=== PATIENT | male | born 1980 | race Caucasian/White ===

== ENCOUNTER 2020-02-14 11:45 | Outpatient (REF) | payer MEDICAID, SELFPAY ==
[2020-02-14 20:55] LABS: Lithium 0.66 mmol/L (0.60-1.20)
== END 2020-02-14 12:05 ==
LOC: NCHCN 11:45
PROVIDERS: PCP Family Medicine; Visit Provider Family Medicine
DX: F31.78 Bipolar disorder, in full remission, most recent episode mixed (principal); Z51.81 Encounter for therapeutic drug level monitoring
CPT/HCPCS: 80178

== ENCOUNTER → 2021-11-05 02:12 | Outpatient (CLI) | payer MEDICAID, SELFPAY ==
--- NOTE | 2021-11-05 10:00 | DI.RAD_ITS ---
Exam(s) XR FEMUR LT EXAM: XR FEMUR LT CLINICAL HISTORY: PAGET'S DISEASE OF BONE, M88.9 TECHNIQUE: COMPARISON: No exams were available for comparison FINDINGS: Four views were obtained. There is apparent cortical thickening with trabecular thickening of the di stal femoral metaphysis and femoral condyles. There is reportedly a history of Paget's disease and t he findings are consistent with Paget's disease. No other significant bony findings. IMPRESSION: RADIATION DOSE DELIVERED: Total DLP
== END ==
PROVIDERS: PCP Family Medicine; Visit Provider Family Medicine
DX: M88.88 Osteitis deformans of other bones (principal)
CPT/HCPCS: 73552

== ENCOUNTER 2023-03-30 17:54 | Outpatient (REF) | payer MEDICAID, SELFPAY ==
[2023-03-30 21:11] LABS: HGB 14.5 g/dL (13.5-17.5); MCH 28.7 pg (27.0-33.0); MCHC 32.2 % (32.0-36.0); MCV 89 fL (80-95); MPV 10.9 fL (8.0-11.0); Platelet Count 297 10^3/uL (130-400); RBC 5.06 10^6/uL (4.36-5.78); RDW 13.9 % (11.8-14.1); RDW-SD 45.4 fL; WBC 7.18 10^3/uL (4.4-10.8)
[2023-03-30 21:15] LABS: Anion Gap 9.1 mmol/L (3-11); BUN 14 mg/dL (7-18); CO2 25.9 mmol/L (21.0-32.0); CREATININE 1.1 mg/dL (0.70-1.30); Calcium 10.2 mg/dL (8.5-10.1); Chloride 102 mmol/L (98-107); Estimated GFR 84.37 (mL/min/1.73m2); Glucose 128 mg/dL (74-106); Lithium 0.6 mmol/l (0.6-1.2); Potassium 4.2 mmol/L (3.5-5.1); Sodium 137 mmol/L (136-145)
== END 2023-03-30 17:55 | disposition home or self-care (01) ==
LOC: NCHCN 17:54
PROVIDERS: PCP Family Medicine; Visit Provider Family Medicine
DX: F31.78 Bipolar disorder, in full remission, most recent episode mixed (principal); Z79.899 Other long term (current) drug therapy; Z51.81 Encounter for therapeutic drug level monitoring
CPT/HCPCS: 80048; 85027; 80178

== ENCOUNTER 2023-11-28 17:43 | Emergency (ER) | payer MEDICAID, SELFPAY ==
[2023-11-28 17:48] VITALS: BP 148/89; PULSE 89; RESP 20; TEMP 37.1; O2SAT 94
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
--- NOTE | 2023-11-28 18:15 | DI.CT_ITS ---
Exam(s) CT NECK W EXAM: CT NECK W CLINICAL HISTORY: Right-sided neck swelling. TECHNIQUE: Imaging Protocol: Axial computed tomography images with coronal and sagittal reformatted images were created and reviewed CONTRAST MATERIAL: Intravenous: Omnipaque 350 Contrast volume:100 ml contrast COMPARISON: No exams were available for comparison FINDINGS: Exam is somewhat limited by streak artifact due to the patient's shoulders. Parotids: Normal. Submandibular glands: Normal. Thyroid gland: Normal. Lymph nodes: There are enlarged lymph nodes in the right lower neck, the largest measuring 2.3 cm, li colin reactive. Carotids arteries: No significant stenosis or dissection. Vertebral arteries: No significant stenosis or dissection. There is low attenuation in the right jugular vein which likely represents mixing of non opacified bl ood. Thrombosis not entirely excluded. Soft tissues: There is a fluid collection deep to the right sternocleidomastoid muscle which shows en hancing rim, consistent with small abscess. It measures 2.5 cm. There are 2 elongated foreign jaron s noted adjacent to the level of the abscess, 1 lateral and 1 inferior and medial. The floor the mouth is unremarkable. The adenoids are unremarkable. There is calcification within th e tonsils which could be secondary to previous inflammation. The epiglottis and vocal cords are within normal limits. Lungs: Images through both lung apices are unremarkable. Bones: Mild degenerative changes of the cervical spine. Visualized portions of the brain and orbits: Unremarkable. Sinuses and mastoids: Clear. IMPRESSION: Abscess in the right lower neck adjacent to the level of the thyroid measuring 2.5 cm. Two adjacent metallic foreign bodies. Reactive lymph nodes. Question of thrombosis in right jugular vein versus mixing of non-opacified blood. RADIATION DOSE DELIVERED: 479.83mGy.cm Total DLP DATA REPOSITORY: All CT scans at this facility are submitted to the National Radiology Data Registry (NRDR) Dose Index Registry (DIR) with the [employer] ([employer]). RADIATION OPTIMIZATION: All CT scans at this facility use at least one of these dose optimization te chniques: automated exposure control; mA and/or kV adjustment per patient size (includes targeted exa ms where dose is matched to clinical indication); or iterative reconstruction.
[2023-11-28 18:45] LABS: Abs Immature Grans 0.02 10^3/uL (0.0-0.06); Absolute Basophil Count 0.09 10^3/uL (0.0-0.2); Absolute Eosinophil Count 0.17 10^3/uL (0.0-0.7); Absolute Lymphocyte Count 2.01 10^3/uL (1.2-3.4); Absolute Neutrophil Count 6.16 10^3/uL (1.2-6.7); Eosinophils % 1.9 %; HCT 44.7 % (40.0-50.0); HGB 14.6 g/dL (13.5-17.5); Immature Grans % 0.2 %; Lymphocytes % 22.5 %; MCH 28.5 pg (27.0-33.0); MCHC 32.7 % (32.0-36.0); MCV 87 fL (80-95); MPV 9.3 fL (8.0-11.0); Monocytes % 5.6 %; Neutrophils % 68.8 %; Platelet Count 301 10^3/uL (130-400); RBC 5.13 10^6/uL (4.36-5.78); RDW 12.4 % (11.8-14.1); RDW-SD 39.8 fL; WBC 8.95 10^3/uL (4.4-10.8)
[2023-11-28] MEDS: Omnipaque 350 MG/ML 100 ML BTL IJ (18:49)
[2023-11-28 18:56] LABS: BUN 18 mg/dL (7-18); CREATININE 1.4 mg/dL (0.70-1.30); Calcium 9.9 mg/dL (8.5-10.1); Chloride 101 mmol/L (98-107); Estimated GFR 63.17 (mL/min/1.73m2); Glucose 96 mg/dL (74-106); Potassium 3.6 mmol/L (3.5-5.1); Sodium 138 mmol/L (136-145)
[2023-11-28] MEDS: Normal Saline Flush 10 ML SYR IVP (18:58)
[2023-11-28] MEDS: Normal Saline - Diluent 50 ML VIAL IJ (18:59)
[2023-11-28] MEDS: Dexamethasone 4 MG TAB 8 MG PO (19:16)
[2023-11-28] MEDS: diphenhydrAMINE 25 MG CAP PO (19:16)
[2023-11-28 19:17] VITALS: BP 140/68; PULSE 74; RESP 14; O2SAT 94
--- NOTE | 2023-11-28 20:02 | DI.VRAD_ITS ---
PROCEDURE INFORMATION: Exam: CT Neck With Contrast Exam date and time: 11/28/2023 6:54 PM Age: 43 years old Clinical indication: Other: R sided neck swelling; Prior surgery; Surgery date: 6+ months; Surgery type: Not specified; Additional info: PT had allergic reaction from contrast on return to er with hives TECHNIQUE: Imaging protocol: Computed tomography of the neck with contrast. Radiation optimization: All CT scans at this facility use at least one of these dose optimization techniques: automated exposure control; mA and/or kV adjustment per patient size (includes targeted exams where dose is matched to clinical indication); or iterative reconstruction. Contrast material: OMNIPAQUE 350; Contrast volume: 100 ml; Contrast route: INTRAVENOUS (IV); COMPARISON: No relevant prior studies available. FINDINGS: Pharynx: Unremarkable. No significant tonsillar enlargement. Larynx: Unremarkable. Epiglottis is normal. Prevertebral and retropharyngeal spaces: Unremarkable. Salivary glands: Normal. Glands are normal in size. Thyroid: Normal. No significant nodule.. Lymph nodes: There are asymmetrically enlarged lymph nodes in the lower right neck measuring up to about 2.3 cm. These are probably reactive. Trachea: Visualized trachea is unremarkable. Lungs: Unremarkable as visualized. Bones/joints: Unremarkable. No acute fracture. Vasculature: There is an area of decreased attenuation within the right jugular vein asymmetric with the opposite side and partial thrombosis cannot be excluded. Soft tissues: There is a 2.3 cm fluid collection deep to the right sternocleidomastoid muscle at the thyroid level anterior to the jugular vein. This exhibits a hyperenhancing rim and is suspicious for small abscess. IMPRESSION: Soft tissue abscess in the right lower neck deep to the sternocleidomastoid muscle. Possible partial thrombosis of the adjacent jugular vein. Dictated and Authenticated by: Mark Thurman MD. Ordering:LISA Chong MD
[2023-11-28] MEDS: AMPICILLIN/SULBACTAM 3 GM in Normal Saline 100 ML IVPB (20:24)
[2023-11-28 21:04] VITALS: BP 140/68; PULSE 74; RESP 14; O2SAT 94
--- NOTE | 2023-11-29 09:13 | NUR.NOTE ---
Addendum entered by Columba Mathis 11/29/23 10:58: Patient called [phone] stating that the prescription was pencillin based and that he is allergic. The note was given to Dr Lopez with phone number for provider to call patient back. Original Note: Patient called asking what pharmacy the prescription was sent to. Told that it was [facility] in [place]. Nursing Note:
== END 2023-11-28 21:04 | disposition home or self-care (01) ==
PROVIDERS: Emergency Provider Emergency Medicine; PCP Family Medicine
DX: L02.11 Cutaneous abscess of neck (principal); F19.10 Other psychoactive substance abuse, uncomplicated
CPT/HCPCS: 36415; 70491; 80048; 87040; 96365; 99285; 85025; 99283; J0295; J3490; J8540

== ENCOUNTER 2024-06-21 15:28 | Outpatient (CLI) | payer MEDICAID, SELFPAY ==
--- OUTSIDE RECORDS SUMMARY | 2024-06-21 15:30 | XMS_ITS | Encounter Summary ---
Author Organization [facility] Address [facility] [place] [address] Care Team Providers Care Camouflage Specialist Name Role Phone Laura Ho MD Primary Care Provider [phone] Encounter Details Date Type Department Care Team (Latest Contact Info) Description 02/05/2024 Travel Social History Tobacco Use Types Packs/Day Years Used Date Smoking Tobacco: Every Day Cigarettes Smokeless Tobacco: Never Alcohol Use Standard Drinks/Week Comments Yes 6 (1 standard drink = 0.6 oz pur e alcohol) IPV Inpatient Questions Answer Date Recorded Does Anyone Try to Keep You From Having Contact with Others or Doing Things Outside Your Home? no 02/05/2024 Feels Threatened by Someone no 01/09 Feels Unsafe at Home or Work/School no 02/05/2024 Physical Signs of Abuse Present no 02/05/2024 Sex and Gender Information Value Date Recorded Sex Assigned at Not on file Gender Identity Not on file Sexual Orientation Not on file documented as of this encounter Plan of Treatment Not on file documented as of this encounter Visit Diagnoses Not on filedocumented in this encounter Care Teams Camouflage Specialist Relationship Specialty Start Date End Date Laura Ho MD [address] [place] [address] PCP - General Family Medicine 06/28/16 documented as of this encounter
--- OUTSIDE RECORDS SUMMARY | 2024-06-21 15:30 | XMS_ITS | Encounter Summary ---
Author Organization [facility] Address [facility] [place] [address] Care Team Providers Care Laborer Adjustable Steel Joist Name Role Phone Laura Ho MD Primary Care Provider Encounter Details Date Type Department Care Team (Late st Contact Info) Description 11/28/2023 Notes [place] [id number] Carina Askew MD [facility] [place] [address] Social History Tobacco Use Types Packs/Day Years Used Date Smoking Tobacco: Every Day Cigarettes Smokeless Tobacco: Never Alcohol Use Standard Drinks/Week Comments Yes 6 (1 standard drink = 0.6 oz pur e alcohol) Sex and Gender Information Value Date Recorded Sex Assigned at Not on file Gender Identity Not on file Sexual Orientation Not on file documented as of this encounter Plan of Treatment Not on file documented as of this encounter Visit Diagnoses Not on filedocumented in this encounter Care Teams Laborer Adjustable Steel Joist Relationship Specialty Start Date End Date Laura Ho MD [address] [place] [address] PCP - General Family Medicine 06/28/16 documented as of this encounter
--- OUTSIDE RECORDS SUMMARY | 2024-06-21 15:30 | XMS_ITS | Encounter Summary ---
Author Organization [facility] Address [facility] [place] [address] Care Team Providers Care Plaster Machine Tender Name Role Phone Laura Ho MD Primary Care Provider [phone] Reason for Visit * Reason Comments Abscess Encounter Details Date Type Department Care Team (Late st Contact Info) Description 02/05/2024 11:00 PM EDT - 02/06/2024 12:16 PM [place] [address] Guille Hansen MD [facility] [place] [address] Johnson Rosales MD [facility] [place] [address] Neck abscess Discharge Disposition: Home Social History Tobacco Use Types Packs/Day Years Used Date Smoking Tobacco: Every Day Cigarettes Smokeless Tobacco: Never Alcohol Use Standard Drinks/Week Comments Yes 6 (1 standard drink = 0.6 oz pur e alcohol) DH IPV Inpatient Questions Answer Date Recorded Does [...] on file documented as of this encounter Last Filed Vital Signs Vital Sign Reading Time Taken Comments Blood Pressure 128/77 02/06/2024 11:45 AM EDT Pulse 98 02/05/2024 10:23 PM EDT Temperature 36.7 ??C (98.1 ??F) 02/06/2024 9:21 AM ED T Respiratory Rate 18 02/05/2024 10:23 PM EDT Oxygen Saturation 95% 02/06/2024 11:45 AM EDT Inhaled Oxygen Concentration - - Weight 99.8 kg (220 lb) 02/05/2024 10:23 PM EDT Height 185.4 cm (6' 1) 02/05/2024 10:23 PM EDT Body Mass Index 29.03 02/05/2024 10:23 PM EDT documented in this encounter Discharge Instructions * Discharge Instructions* Reji Lopez MD - 02/06/2024 11:56 AM EDT You were seen in the emergency department for a large neck abscess and associated skin infection called cellulitis. You were seen and evaluated by the ear nose and throat surgeons and they performed an incision and drainage at the bedside in the emergency department. Your abscess was very large andhad extensive surrounding infection. You received IV antibiotics in the emergency department. We offered you admission to the hospital for continued IV antibiotics and a period of observation overnight however you declined and would like to go home. Please scrap picker your antibiotics Augmentin and Bactrim and start taking them as prescribed this afternoon. Please take all of your antibiotics as prescribed. Ear nose and throat surgery will see you in clinic on for reassessment. In the meantime if you develop any worsening pain, swelling, vomiting, difficulty breathing, difficulty speaking, or any other concerns please return to the emergency department immediately. documented in this encounter Medications at Time of Discharge Medication Sig Dispensed Refills Start Date End Date prazosin (Minipress) 2 mg Capsule Take 4 mg by mouth nightly. acyclovir (ZOVIRAX) 200 mg Capsule as needed. 08/08/2020 cloNIDine (CATAPRES) 0.1 mg/24 hr Patch Weekly Change 1 patch on the skin once a week. Sundays alendronate (Fosamax) 70 mg Tablet Take 70 mg by mouth every 7 days. Take in AM with full glass of water, on an empty stomach. Do not lie down for 30 min. Saturdays. buspirone HCl (BUSPIRONE ORAL) Take 5 mg by mouth 2 times daily. Takes midday and nightly triamcinolone (KENALOG) 0.1 % OintmentIndications:Allison nd eczema,Prurigo nodularis Apply twice daily to the affected areas on the hands and lower legs for 21 days, then take one week off, and repeat as needed. Can occlude with cotton gloves after application to the hands at night 80 g 2 05/19/2020 QUEtiapine (SEROqueL) 100 mg Tablet Take 400 mg by mouth nightly. lithium 300 mg Capsule Take 1,050 mg by mouth nightly. buprenorphine-nalOXone (SUBOXONE) 8-[address] 16 mg under the tongue daily. Dexmethylphenidate 30 mg Capsule, Multiphasic Rel.50-50 Take 30 mg by mouth daily. lamoTRIgine (LAMICTAL) 25 mg Tablet Take 125 mg by mouth nightly. amoxicillin-clavulanat e (Augmentin) 875-125 mg tablet Take 1 tablet by mouth 2 times daily for 10 days. 20 tablet 02/06/2024 02/16/2024 sulfamethoxazole-trime thoprim DS (Bactrim DS) 800-160 mg tablet Take 2 tablets by mouth 2 times daily for 10 days. 40 tablet 02/06/2024 02/16/2024 documented as of this encounter ED Notes * Sergio Sanders RN - 02/06/2024 12:14 PM EDT Discharge instructions reviewed w/ Pt, Pt verbalized understanding to follow up with [place]/ PCP, Pt verbalized imporatnce of following up w/ Biju on for wound check, Discussed importance of refraining from smoking, & neReviewed new prescription of abx w/ Pt, PIV removed & catheter intact, Pt has belongings with them @ D/C. * Johnson Rosales MD - 02/06/2024 11:56 AM EDT EMERGENCY DEPARTMENT ATTENDING PHYSICIAN NOTE This patient was signed out to me at change of shift. Please see initial provider documentation forHPI, workup and treatment performed before transfer of care. In short Harvey Espinosa is a 43 y.o. male with a pmhx significant for PTSD, schizoaffective disorder, prior opioid dependence who presents to the Emergency Department with the chief complaint of right neck abscess. History of the same in 2020 requiring OR incision and drainage. Second occurrencein November 2023 treated with outpatient antibiotics and bedside ED incision and drainage by ENT.. Labora tory studies show slight leukocytosis at 11, lactic acid normal, remainder of laboratory studies reassuring. Patient was signed out to me pending CT scans and resulting consultation with ENT. CT scan shows large abscess at the lower right anterior lateral neck extending into and invading the adjacent sternocleidomastoid muscles significantly increased in size since prior study from November 2023. Extensive cellulitis of the surrounding muscle and subcutaneous soft tissue no evidence of associated thrombophlebitis. ENT was consulted, they performed an incision and drainage at the bedside and placed a drain as well. Patient received vancomycin and Zosyn in the emergency department. Given the location of the abscess, size and extent of the associated swelling, I strongly encouraged the patient to be admitted to the hospital to the medicine service for continued IV antibiotics, period of observation, prior to being discharged. Patient considered this option for well over an hour. His significant other at the bedside was present for these conversations. Patient is of sound mental mind. He voiced understanding of the risks and benefits of his decisions. He ultimately decided despite my persistent encouragement to be admitted, to be discharged home with oral antibiotics. Marcy follow him up in the outpatient clinic on . Patient was given very strict return precau tions to include signs and symptoms of worsening sepsis, neck infection, airway compromise, etc. Patient voiced understanding of these reasons to return. He was discharged with Augmentin as well as Bactrim for 10 days. Prescriptions were sent to [facility] and they will pick these up prior to [facility]. They live [place] [address] [place] in [place]. Patient ultimately was discharged at hisrequest with full decision-making capacity and voiced understanding of risks of his decision. Results: Labs Reviewed ABSCESS/WOUND ASPIRATE CULTURE - Abnormal; Notable for the following components: Result Value Gram Stain (*) Value: Many Neutrophils seen Many Gram Positive Cocci seen Moderate Gram Negative Rods seen Organism Gram Positive Cocci (*) Organism Gram Negative Rods (*) All other components within normal limits HEMOGRAM - Abnormal; Notable for the following components: WBC 11.1 (*) Hemoglobin 13.1 (*) Hematocrit 39.4 (*) Platelets 361 (*) All other components within normal limits DIFFERENTIAL, AUTOMATED - Abnormal; Notable for the following components: Neutr Abs (ANC) 7.83 (*) Monocyte Abs 1.1 (*) Teena Gran Abs 0.06 (*) All other components within normal limits BLOOD CULTURE BLOOD CULTURE ABSCESS/WOUND ASP CULTURE, AEROBIC AND ANAEROBIC ANAEROBIC CULTURE GOLD TUBE HOLD BLUE TUBE HOLD CBC (WITH DIFF) REQUEST FOR LACTATE WHOLE BLOOD DRAW HEPATIC FUNCTION PANEL BASIC METABOLIC PANEL LACTATE, WHOLE BLOOD, SEND TO LAB ([facility]) GREEN TUBE HOLD LAVENDER TUBE HOLD CT Neck Soft Tissue w Contrast (Generic) Final Result 1. Large abscess at the lower right anterolateral neck, extending into/and invading the adjacent sternocleidomastoid muscle, significantly increased in size since prior study from November 2023. Of note, collection abuts the anterior lateral skin surface without nathen disruption. Persistent linear metallic radiopaque foreign bodies inferior and lateral to the inferior margin of the collection, in unchanged position. 2. Extensive cellulitis of the surrounding muscle and subcutaneous soft tissues. No evidence of associated thrombophlebitis. 3. Reactive cervical lymphadenopathy. I have personally reviewed the image(s) and the resident's interpretation and agree with the findings, Kassandra Dobbins MD at 02/06/2024 6:52 AM Thank you for letting us participate in the care of this patient. If you are a health care provider and have any questions regarding this report, please contact the number below. For patients who have questions please contact the health wound care specialist that requested your imaging first. Electronically signed by: Kassandra Dobbins MD, [facility] ([phone]), at 02/06/2024 6:52 AM Diagnosis: 1. Neck abscess Condition: Stable Disposition: Discharge Johnson Rosales MD 02/06/24 1200 * Sergio Sanders RN - 02/06/2024 11:06 AM EDT Pt resting in hospital stretcher, equal and unlabored respirations, NAD noted at this time. Call armendariz within reach. * Sergio Sanders RN - 02/06/2024 10:39 AM EDT Pt given PO fluids, tolerating well. * Reji Lopez MD - 02/06/2024 9:04 AM EDT ED Patient Care Transition Patient: Harvey Espinosa Date: 02/06/2024 Time: 9:04 AM Pt has been signed out to me by Dr. Bill with a chief complaint of right neck abscess the last 2 days. Workup thus far notable for leukocytosis at 11.1, normal BMP, normal hepatic panel, lactate of 1. Patient was treated with Zosyn, ENT was paged and have yet to see the patient. ED Course as of 02/06/24 0904 TueFeb 06, 2024 0610 RN RADIATION >GC: 43yo PMH IV drug use, not actively using, prior neck abscess, here with right neck swelling. CT Neck - likely abscess -[facility] ENT I have followed up on results of CT neck, have also engaged ENT, they plan to drain at bedside. Drainage was performed uneventfully, vancomycin was added to the patient's antibiotic regimen, he was given Solu-Medrol. ENT was comfortable with the patient discharge and recommended Augmentin outpatient, we have prescribed both Augmentin and Bactrim. Patient was given in the ENT clinic visit for for reassessment and return precautions were reviewed. Patient was discharged in stable condition. CT Neck Soft Tissue w Contrast (Generic) Final Result 1. Large abscess at the lower right anterolateral neck, extending into/and invading the adjacent sternocleidomastoid muscle, significantly increased in size since prior study from November 2023. Of note, collection abuts the anterior lateral skin surface without nathen disruption. Persistent linear metallic radiopaque foreign bodies inferior and lateral to the inferior margin of the collection, in unchanged position. 2. Extensive cellulitis of the surrounding muscle and subcutaneous soft tissues. No evidence of associated thrombophlebitis. 3. Reactive cervical lymphadenopathy. I have personally reviewed the image(s) and the resident's interpretation and agree with the findings, Kassandra Dobbins MD at 02/06/2024 6:52 AM Thank you for letting us participate in the care of this patient. If you are a health care provider and have any questions regarding this report, please contact the number below. For patients who have questions please contact the health wound care specialist that requested your imaging first. Electronically signed by: Kassandra Dobbins MD, [facility] ([phone]), at 02/06/2024 6:52 AM The visit findings, diagnosis, and care plan were discussed with the patient. The diagnosis and care plans discussions were outlined in the discharge instructions. The patient expressed understanding of the details of the visit, the return precautions and that he should returnto the ER at any time for worsening symptoms, new symptoms, or other concerns. he agrees with the follow- up plan. Reji Lopez MD Resident 02/06/24 [id number] * Matteo Bill MD - 02/05/2024 11:54 PM EDT ED Resident Note HPI: Harvey Espinosa is a 43 y.o. male past medical history seen for bipolar disorder, PTSD, schizoaffective disorder, prior ADD, and prior opioid dependence who presents to the Emergency Department with concern for neck abscess. History is obtained with the patient. Patient states that over the past few days, he has rapidly developed a swelling on the right side of his anterior neck that is red. Hedenies any shortness of breath associated with this but does have some difficulty swallowing. He endorses fevers and chills at home, and some difficulty moving his neck around he says that he has some pain that spreads to the underside of his mouth and up towards his right ear. ROS as per HPI Vitals: ED Triage Vitals [02/05/243] BP: 131/76 Heart Rate: 98 Resp: 18 Temp: 37.2 ??C (99 ??F) Temp src: Temporal SpO2: 98 % O2 Device: RA O2 Flow Rate (L/min): n/a Physical Exam Constitutional: General: He is not in acute distress. HENT: Mouth/Throat: Comments: Patient with swelling at the right anterior neck that is erythematous and tender to palpation with spreading discomfort to the right ear and right inferior mouth Pulmonary: Effort: Pulmonary effort is normal. No respiratory distress. Neurological: Mental Status: He is alert. ED Course as of 02/06/24416Feb 06, [address] Neck Soft Tissue w Contrast (Generic) (Results Pending) Assessment and Plan: 43 y.o. male past medical history seen for bipolar disorder, PTSD, schizoaffective disorder, prior ADD, and prior opioid dependence who presents to the Emergency Department with concern for neck abscess. Patient has similar presentation in the past for neck abscess which had an I&D done at bedside by ENT in November. Today he is here with pain that is spreading up towards his submandibular space as well as his right ear. Will rule out Rahul's angina with CT scan, will give the patient a dose of antibiotics here as well in the meantime. Intervention pending CT scan. Patient had previous reaction to iodinated contrast dye had an outside location. He states that he had urticaria at the time, he did not have any shortness of breath. Will add this to his allergy list as well as start the [facility] protocol for his CT. Patient signed out to oncoming emergency room team pending CT scan of neck finalizing, anticipate evaluation by the ENT service. Matteo Bill MD Resident 02/06/24 0618 Associated attestation - Guille Hansen MD - 02/07/2024 1:03 AM EDT ED ATTENDING ATTESTATION NOTE The patient was seen in conjunction with the resident physician. I have independently performed thekey portions of the history and physical exam. I have reviewed the diagnostic studies including labs, imaging studies and EKGs. I have discussed the details of the case with the resident and agree with the assessment and plan as described in the resident note unless noted below or in my separate note. Brief Summary: 43 y.o. male with recurrent complicated neck abscess. Patient was overall hemodynamically stable throughout her time with him in the emergency department. Lab work notable for mild leukocytosis. Patient notes prior adverse reaction to IV contrast, given his history feel this test is most available test at this time and he was started on the [facility] protocol. Just prior to signout, preliminary CT with recurrent abscess adjacent to sternocleidal muscle and likely compressing the IJ. Carewas signed out to the oncoming team pending final reads and likely ENT consultation. * Arcelia Moore EMTPatricia - 02/05/2024 11:17 PM EDT IV attempted x1 in RAC. IV team paged. documented in this encounter Miscellaneous Notes * Consult Note - Arian Bowers MD - 02/06/2024 6:52 AM EDT OTOLARYNGOLOGY - HEAD & NECK SURGERY CONSULT NOTE Name: Harvey Espinosa Age/Sex: 43 y.o. male ENT Attending: Hermilo Thornton MD Hospital Day: 2 History of Present Illness We are seeing Harvey Espinosa today at the request of Dr. Johnson Rosales MD regarding RIGHT neckabscess. Harvey Espinosa is a 43 y.o. male with PMHx of bipolar disorder, PTSD, schizoaffective disorder, prior ADD, prior opioid dependence, and two prior episodes of right neck abscess. Briefly, he was previously seen by [facility] for a R neck abscess (Strep pneumo) requiring operative drainage in 2020 and again in November of 2023 which was drained at bedside. He states he completed most of his antibiotic course. Regarding this episode, the patient states over the past few days, he has rapidly developed a swelling on the right side of his anterior neck that is red. He denies any shortness of breath associatedwith this but does have some difficulty swallowing. He endorses chills at home, and some difficultymoving his neck around he says that he has some pain that spreads to the underside of his mouth andup towards his right ear. He denies any recent trauma to the neck, international travel or other associated symptoms Last injected into neck November of this year CT scan today demonstrates 6.0 x 4.7 x 5.9 cm abscess (likely similar location as most recent episode) Since arrival to ED VSS, afebrile, WBC 11.1. Not on any blood thinning medication. No heavy EtOH Review of Systems Pertinent positive findings discussed above. No other findings on review of constitutional, visual,cardiovascular, respiratory, gastrointestinal, genitourinary, musculoskeletal, dermatologic, neurological, psychiatric, endocrine, hematologic or immunologic systems. 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 Smokes F17.200 Bipolar disorder F31.9 History of hepatitis C Z86.19 PTSD (post-traumatic stress disorder) F43.10 Schizoaffective disorder F25.9 Chronic constipation K59.09 ADD (attention deficit disorder) F98.8 Opioid dependence on agonist therapy F11.20 Neck abscess L02.11 Past Medical History Past Medical History: Diagnosis Date Bipolar 1 disorder Cellulitis of hand 12/09/2015 Injury, superficial, hand with infection 12/10/2015 Past Surgical History Past Surgical History: Procedure Laterality Date PRO I&D DEEP ABSC/HEMATOMA NECK/CHEST Right 01/10/2021 I & D DEEP ABSCESS OR HEMATOMA, NECK (WRVU 3.98) performed by Nelson Gong MD at [facility] MAIN OR PRO LAP, CHOLECYSTECTOMY/GRAPH N/A 09/15/2020 LAPAROSCOPIC CHOLECYSTECTOMY WITH CHOLANGIOGRAM (WRVU 11.47) performed by Jorge Luis Rios MD [facility] MAIN OR Medications & Allergies No current facility-administered medications on file prior to encounter. Current Outpatient Medications on File Prior to Encounter Medication Sig Dispense Refill prazosin (Minipress) 2 mg Capsule Take 4 mg by mouth nightly. acyclovir (ZOVIRAX) 200 mg Capsule as needed. cloNIDine (CATAPRES) 0.1 mg/24 hr Patch Weekly Change 1 patch on the skin once a week. Sundays alendronate (Fosamax) 70 mg Tablet Take 70 mg by mouth every 7 days. Take in AM with full glass of water, on an empty stomach. Do not lie down for 30 min. Saturdays. buspirone HCl (BUSPIRONE ORAL) Take 5 mg by mouth 2 times daily. Takes midday and nightly triamcinolone (KENALOG) 0.1 % Ointment Apply twice daily to the affected areas on the hands and lower legs for 21 days, then take one week off, and repeat as needed. Can occlude with cotton gloves after application to the hands at night 80 g 2 QUEtiapine (SEROqueL) 100 mg Tablet Take 400 mg by mouth nightly. lithium 300 mg Capsule Take 1,050 mg by mouth nightly. buprenorphine-nalOXone (SUBOXONE) 8-[address] 16 mg under the tongue daily. Dexmethylphenidate 30 mg Capsule, Multiphasic Rel.50-50 Take 30 mg by mouth daily. lamoTRIgine (LAMICTAL) 25 mg Tablet Take 125 mg by mouth nightly. Iodinated contrast media and Pcn [penicillins] Social History [place] [id number] Social History Socioeconomic History Marital status: Spouse name: Not on file Number of children: Not on file Years of education: Not on file Highest education level: Not on file Occupational History Not on file Tobacco Use Smoking status: Every Day Types: Cigarettes Smokeless tobacco: Never Vaping Use Vaping status: Never Used Substance and Sexual Activity Alcohol use: Yes Alcohol/week: 6.0 standard drinks of alcohol Types: 6 Cans of beer per week Drug use: Not Currently Types: IV Sexual activity: Not on file Other Topics Concern Do You live alone? No Tobacco in Home Not Asked Social History Narrative Not on file Social Determinants of Health Financial Resource Strain: Not on file Food Insecurity: Not on file Transportation Needs: Not on file Physical Activity: Not on file Intimate Partner Violence: Not At Risk (02/05/2024) IPV Inpatient Questions Prevent Contact with Others: no Feels Threatened by Someone: no Feels Unsafe at Home: no Physical Signs of Abuse Present: no Housing Stability: Not on file Family History Family History Problem Relation Age of Onset Alcohol Use Disorder Mother Heart Disease Mother Vitals Last value 24hr Range Temperature: 37.2 ??C (99 ??F) Temp: [37.2 ??C (99 ??F)] Heart Rate: 98 Heart Rate: [98] Blood Pressure: 110/70 BP: (110-131)/(67-76) Respiratory Rate: 18 Resp: [18] SpO2: 97 % SpO2: [90 %-98 %] Physical Exam General: NAD, non-ill appearing Face: Symmetric without dysmorphic features Eyes: EOMI, conjunctiva healthy Ears: Auricles symmetric, no lesions Nose: Patent nares, grossly normal appearance Oral Cavity/Pharynx: Mucosa is pink, oropharynx symmetric Neck: Soft, trachea midline. 6x4 cm raised area of fluctuance along lower 1/3 of SCM which is TTP. No overlying erythema. No fistula tract noted however overlying skin thinning present. No other cervical LAD appreciated Chest: Unlabored breathing, regular rate Neuro: Alert & oriented, moving extremities x 4 Procedures Incision & Drainage of Abscess Verbal consent was obtained. Topical anesthesia was achieved with lidocaine with epinephrine. A 15 blade was used to make an incision in the location of the abscess with immediate return of purulent material which was sent for culture. A hemostat was used to open the pocket. Abscess pocket was irrigated with sterile saline. A 1/2 sera drain was placed in the pocket and sutured in place with 2-0prolene along inferior aspect. Patient tolerated the procedure well. Labs Recent Labs 02/06/24 0000 WBC 11.1* HGB 13.1* HCT 39.4* PLATELET 361* NA 136 K 3.6 CL 99 CO2 27 BUN 12 CREATININE 1.08 GLUCOSE [address] neck soft tissue 02/06/2024 Large rim-enhancing fluid collection in right neck measuring 6.0 x 4.7 x 5.9 cm adjacent to right SCM similar location to prior. Persistent linear metallic radiopaque foreign bodies inferior and lateral to the inferior margin of the collection, in unchanged position. *Personally reviewed and evaluated ASSESSMENT & RECOMMENDATIONS Harvey Espinosa is a 43 y.o. male who presents with right neck abscess. CT scan demonstrates large superficial fluid collection in the same location as recent abscess in November. Abscess was successfully drained at bedside. Discussed continued massage and replacement of gauze BID over the next few days with follow up in 2-3 days for removal of drain. Recommendations: Augmentin - please send patient with 10 days worth Continue palpation/massage of area to encourage continued drainage. F/u cultures to ensure appropriate antibiotic coverage Follow up with ENT on for sera drain removal. ENT to arrange follow up __ Arian Bowers MD PGY2 02/06/24 6:55 AM Personal Pager: [phone] ENT Team Pager: [phone] documented in this encounter Plan of Treatment Not on file documented as of this encounter Procedures Procedure Name Priority Date/Time Associated Diagnosis Comments ANAEROBIC CULTURE STAT 02/06/2024 10: 01 AM EDT HC WOUND/ABSCESS CX STAT 02/06/2024 1 0:01 AM EDT ABSCESS/WOUND ASPIRATE CULTURE STAT 02/06/2024 10:[address] NECK SOFT TISSUE W CONTRAST STAT 02/06/2024 5:16 AM EDT BLOOD CULTURE STAT 02/06/2024 12:45 AM EDT BLOOD CULTURE STAT 02/06/2024 12:45 AM EDT HEMOGRAM STAT 02/06/2024 12:00 AM EDT DIFFERENTIAL, AUTOMATED STAT 02/06/2024 12:00 AM EDT GOLD TUBE HOLD STAT 02/06/2024 12:00 AM EDT BLUE TUBE HOLD STAT 02/06/2024 12:00 AM EDT LACTATE, WHOLE BLOOD Timed 02/06/2024 12:00 AM EDT CBC (WITH DIFF) STAT 02/06/2024 12:00 AM EDT HEPATIC FUNCTION PANEL STAT 02/06/2024 12:00 AM EDT BASIC METABOLIC PANEL STAT 02/06/2024 12:00 AM EDT documented in this encounter Results * (ABNORMAL) Anaerobic Culture (02/06/2024 10:01 AM EDT) Anaerobic Culture Many Prevotella denticola(A) [facility] Organism Prevotella denticola(A) [facility] Abscess NECK STRUCTURE / Unknown 02/06/2024 10:01 AM EDT 02/06/2024 10:29 AM EDT Narrative Resulting Agency Comment Spec In Lab Johnson Rosales MD MICROBIOLOGY - GENER AL ORDERABLES Performing Organization Address [facility]/ZIP Co de Phone Number [facility] [place] [address] * (ABNORMAL) Abscess/Wound Aspirate Culture (02/06/2024 10:01 AM EDT) Abscess/Wound Aspirate Culture Moderate Streptococcus milleri, anginosis group(A) [facility] Gram Stain Many Neutrophils seen Many Gram Positive Cocci seen Moderate Gram Negative Rods seen (A) [facility] Organism Streptococcus milleri, anginosis group(A) [facility] Organism Gram Positive Cocci(A) [facility] Organism Gram Negative Rods(A) [facility] Abscess NECK STRUCTURE / Unknown 02/06/2024 10:01 AM EDT 02/06/2024 10:29 AM EDT Narrative Resulting Agency Comment Spec In Lab Organism Antibiotic Method Susceptibility Streptococcus milleri Penicillin MINIMUM IN HIBITORY CONCENTRATION 0.125: Sensitive Comment: Penicillin susceptible Streptococci species can be considered susceptible to Ampicillin, Ampicillin-Sulbactam, Amoxicillin, Amoxicillin-Clavulanate, Ceftriaxone and Meropenem. Johnson Rosales MD MICROBIOLOGY - GENER AL ORDERABLES Performing Organization Address [facility]/[place] [address] * CT Neck Soft Tissue w Contrast (Generic) (02/06/2024 5:16 AM EDT) WORKSTATION ID [id number] RAD Anatomical Region Laterality Modality Neck, Head Computed Tomogra phy Impressions 02/06/2024 6:52 AM EDT 1. ??Large abscess at the lower right anterolateral neck, extending into/and invading the adjacent sternocleidomastoid muscle, significantly increased in size since prior study from November 2023. Of note, collection abuts the anterior lateral skin surface without nathen disruption. Persistent linear metallic radiopaque foreign bodies inferior and lateral to the inferior margin of the collection, in unchanged position. 2. ??Extensive cellulitis of the surrounding muscle and subcutaneous soft tissues. No evidence of associated thrombophlebitis. 3. ??Reactive cervical lymphadenopathy. I have personally reviewed the image(s) and the resident's interpretation and agree with the findings, Kassandra Dobbins MD at 02/06/2024 6:52 AM Thank you for letting us participate in the care of this patient. ??If you are a health care provider and have any questions regarding this report, please contact the number below. ??For patients who have questions please contact the health wound care specialist that requested your imaging first. ? Electronically signed by: Kassandra Dobbins MD, [facility] ([phone]), at 02/06/2024 6:52 AM Narrative 02/06/2024 6:52 AM EDT EXAMINATION: CT NECK SOFT TISSUE W CONTRAST (GENERIC) CLINICAL HISTORY: hx abscess, neck pain/swelling, right side of the neck with pain extending up towards the ear and into the submandibular space TECHNIQUE: CT neck performed after the intravenous administration of contrast. . COMPARISON: CT neck, 11/28/2023 FINDINGS: Large rim-enhancing fluid collection in the right lower neck adjacent to and extending into the inferior belly of the the right sternocleidomastoid muscle. Abscess is in the same location and is likely the same collection at seen on comparison CT from November 28, 2023, in which case it is significantly increased in size at 6.0 x 4.7 x 5.9 cm, previously 2.9 x 1.9 x 2.7 cm. The collection extends into the inferior sternocleidomastoid muscle and dissects close to the anterolateral skin surface, without nathen disruption, series 3 image 91. Extensive inflammation of the surrounding soft tissues and musculature component of the sternocleidomastoid. Persistent linear radiopaque metallic foreign bodies remain, measuring 11 mm at the posterior medial margin of the collection, series 6 image 17 and particularly along the lateral inferior margin of the incision measuring approximately 13 mm, series 6 image 25. The adjacent portion of the right internal jugular vein is compressed with distal reconstitution. No venous thrombus. Adjacent common carotid is normal. Multiple enlarged level 2 cervical lymph nodes. Hypopharynx and upper airway are normal. The thyroid, submandibular and parotid glands are unchanged. Visualized posterior fossa structures are unremarkable. Calcified granuloma in the left lung apex. The lungs are otherwise unremarkable. No acute osseous findings. Procedure Note Kassandra Dobbins MD - 02/06/2024 EXAMINATION: CT NECK SOFT TISSUE W CONTRAST (GENERIC) CLINICAL HISTORY: hx abscess, neck pain/swelling, right side of the neckwith pain extending up towards the ear and into the submandibular space TECHNIQUE: CT neck performed after the intravenous administration of contrast. . COMPARISON: CT neck, 11/28/2023 FINDINGS: Large rim-enhancing fluid collection in the right lower neck adjacent toand extending into the inferior belly of the the right sternocleidomastoidmuscle. Abscess is in the same location and is likely the same collection at seenon comparison CT from November 28, 2023, in which case it is significantlyincreased in size at 6.0 x 4.7 x 5.9 cm, previously 2.9 x 1.9 x 2.7 cm. Thecollection extends into the inferior sternocleidomastoid muscle and dissects close tothe anterolateral skin surface, without nathen disruption, series 3 image 91. Extensive inflammation of the surrounding soft tissues and musculaturecomponent of the sternocleidomastoid. Persistent linear radiopaque metallic foreignbodies remain, measuring 11 mm at the posterior medial margin of the collection,series 6 image 17 and particularly along the lateral inferior margin of theincision measuring approximately 13 mm, series 6 image 25. The adjacent portion ofthe right internal jugular vein is compressed with distal reconstitution. Novenous thrombus. Adjacent common carotid is normal. Multiple enlarged level 2cervical lymph nodes. Hypopharynx and upper airway are normal. The thyroid, submandibular andparotid glands are unchanged. Visualized posterior fossa structures areunremarkable. Calcified granuloma in the left lung apex. The lungs are otherwiseunremarkable. No acute osseous findings. IMPRESSION 1. Large abscess at the lower right anterolateral neck, extendinginto/and invading the adjacent sternocleidomastoid muscle, significantly increasedin size since prior study from November 2023. Of note, collection abuts theanterior lateral skin surface without nathen disruption. Persistent linearmetallic radiopaque foreign bodies inferior and lateral to the inferior margin ofthe collection, in unchanged position. 2. Extensive cellulitis of the surrounding muscle and subcutaneous soft tissues. No evidence of associated thrombophlebitis. 3. Reactive cervical lymphadenopathy. I have personally reviewed the image(s) and the resident's interpretationand agree with the findings, Kassandra Dobbins MD at 02/06/2024 6:52 AM Thank you for letting us participate in the care of this patient. If youare a health care provider and have any questions regarding this report,please contact the number below. For patients who have questions please contactthe health wound care specialist that requested your imaging first. Electronically signed by: Kassandra Dobbins MD, [facility]([phone]), at 02/06/2024 6:52 AM Guille Hansen MD IMG CT ORDERABLES * Blood culture (02/06/2024 12:45 AM EDT) Blood Culture No growth at 5 days. [facility] Blood 02/06/2024 12:4 5 AM EDT 02/06/2024 4:30 AM EDT Comment:LAC IV Narrative Resulting Agency Comment Spec In Lab Guille Hansen MD MICROBIOLOGY - BLOO D ORDERABLES Performing Organization Address City/[facility]/ZIP Co de Phone Number [facility] [place] [address] * Blood culture (02/06/2024 12:45 AM EDT) Pathologist [facility] Blood Culture No growth at 5 days. [facility] Blood 02/06/2024 12:4 5 AM EDT 02/06/2024 4:28 AM EDT Comment:RFA Narrative Resulting Agency Comment Spec In Lab Guille Hansen MD MICROBIOLOGY - BLOO D ORDERABLES Performing Organization Address [facility] Co de Phone Number [facility] [place] [address] * Lactate, whole blood, send to lab ([facility]) (02/06/2024 12:00 AM EDT) [facility] Lactate WB 1.0 0.5 - 2.2 mmol/L [facility] Blood Venous Draw / Unknown 02/06/2024 02/06/2024 12:10 AM EDT Narrative Resulting Agency Comment Spec In Lab Guille Hansen MD CHEMISTRY ORDERABLE S Performing Organization Address City/[facility]/ZIP Co de Phone Number [facility] [place] [address] * (ABNORMAL) Differential, Automated (02/06/2024 12:00 AM EDT) Neutrophil % 70.3 % [facility] Neutrophil Absolute 7.83(H) 1.70 - 6.10 x10(3)/mc L [facility] Lymph % 16.6 % [facility] Lymphocytes Abs 1.8 0.9 - 3.2 x10(3)/mc L [facility] Monocyte % 10.0 % [facility] Monocyte Abs 1.1(H) 0.3 - 0.9 x10(3)/ L [facility] Eos % 1.9 % [facility] Eosinophils Abs 0.2 0.0 - 0.4 x10(3)/[facility] Basophil % 0.7 % [facility] Baso Absolute 0.1 0.0 - 0.1 x10(3)/[facility] Immature Gran % 0.50 % [facility] Comment: Immature granulocytes(IG's)percentage and absolute count will include metamyelocytes, myelocytes, and promyelocytes. Blood smears from CBCs yielding IG's will be scanned manually for concordance. If this scan disagrees with the automated IG or if promyelocytes are noted, a manual differential will be performed. Immature Gran Absolute 0.06(H) 0.00 - 0.04 x10(3)/[facility] Blood 02/06/2024 02/06/2024 12: 10 AM EDT Narrative Resulting Agency Comment Spec In Lab Guille Hansen MD HEMATOLOGY ORDERABL ES [facility] [place] [address] * (ABNORMAL) Hemogram (02/06/2024 12:00 AM EDT) White Blood Cell 11.1(H) 4.0 - 9.5 x10(3)/[facility] Red Blood Cell 4.68 4.58 - 5.54 x10(6)/[facility] Hemoglobin 13.1(L) 13.7 - 16.5 g/dL [facility] Hematocrit 39.4(L) 40.5 - 48.5 % [facility] Mean Cell Volume 84.2 82.9 - 93.1 fL [facility] Mean Cell Hemoglobin 28.0 27.5 - 32.1 pg [facility] Mean Cell Hemoglobin Concentration 33.2 32.0 - 35.7 g/dL [facility] Platelet 361(H) 145 - 357 x10(3)/mc L [facility] RDW Standard Deviation 42.3 36.0 - 45.0 fL [facility] RDW coefficient of variation 13.7 11.4 - 13.8 % [facility] Mean Platelet Volume 9.7 7.6 - 12.9 fL [facility] NRBC% auto 0.0 % [facility] NRBC Absolute 0.000 0.000 - 0.000 x10(3)/mc L [facility] Blood 02/06/2024 02/06/2024 12: 10 AM EDT Narrative Resulting Agency Comment Spec In Lab Guille Hansen MD HEMATOLOGY ORDERABL ES Performing Organization Address City/State/[facility] Co de Phone Number [facility] [place] [address] * Basic Metabolic Panel (non-fasting) (02/06/2024 12:00 AM EDT) Glucose 108 65 - 199 mg/dL [facility] Comment:Diabetes: >=200 mg/d L plus symptoms Blood Urea Nitrogen 12 10 - 20 mg/dL [facility] Creatinine 1.08 0.80 - 1.50 mg/dL [facility] Sodium 136 135 - 145 mmol/L [facility] Potassium 3.6 3.5 - 5.0 mmol/L [facility] Comment: Please note: ??Patients with WBC >100,000 may have falsely elevated Potassium levels. ??For accurate Potassium quantification in these patients send serum separator tube (gold top) for subsequent determinations. ??Contact the Clinical Chemistry Laboratory if there are any questions. Chloride 99 98 - 107 mmol/L [facility] Carbon Dioxide 27 22 - 31 mmol/L [facility] Anion Gap 10 5 - 15 mmol/L [facility] Calcium 9.8 8.5 - 10.5 mg/dL [facility] Est Glomerular Filtration Rate 86 >=60 mL/min/1. 73 m?? [facility] Comment: This patient's estimated GFR was calculated using the 2020 CKD-EPI equation. The estimated GFR can vary from the measured GFR by up to 30% in the absence of rapidly changing kidney function. Assessment of the estimated GFR is not appropriate when creatinine concentrations are rapidly changing. For clinical situations in which a more precise estimate of GFR is necessary, consider alternative methods of GFR estimation such as a 24-hour urine creatinine clearance. Assignment of CKD stage 1-5 for patients with an eGFR near the transition point between stages may be based on clinical assessment of muscle mass and symptoms in addition to eGFR. Blood 02/06/2024 02/06/2024 12: 10 AM EDT Narrative Resulting Agency Comment Spec In Lab Guille Hansen MD CHEMISTRY ORDERABLE S Performing Organization Address City/[facility] Co de Phone Number [facility] [place] [address] * Hepatic Function Panel (02/06/2024 12:00 AM EDT) Protein, Total 7.8 6.1 - 8.0 g/dL [facility] Albumin 4.0 3.2 - 5.2 g/dL [facility] Aspartate Aminotransferase 16 0 - 39 unit/L [facility] Alanine Aminotransferase 10 0 - 55 unit/L [facility] Alkaline Phosphatase 87 40 - 130 unit/L [facility] Bilirubin, Total 0.5 0.2 - 1.3 mg/dL [facility] Bilirubin, Direct 0.1 0.0 - 0.3 mg/dL [facility] Blood 02/06/2024 02/06/2024 12: 10 AM EDT Narrative Resulting Agency Comment Spec In Lab Guille Hansen MD CHEMISTRY ORDERABLE S Performing Organization Address City/[facility]/ZIP Co de Phone Number [facility] [place] [address] * Blue Tube HOLD (02/06/2024 12:00 AM EDT) Blue Hold Sample in lab. [facility] Blood 02/06/2024 02/06/2024 12: 10 AM EDT Guille Hansen MD HEMATOLOGY ORDERABL ES Performing Organization Address [facility]/ZIP Co de Phone Number [facility] [place] [address] * Gold Tube HOLD (02/06/2024 12:00 AM EDT) Gold Hold Sample in lab. [facility] Blood 02/06/2024 02/06/2024 12: 10 AM EDT Guille Hansen MD CHEMISTRY ORDERABLE S Performing Organization Address [facility] Co de Phone Number [facility] [place] [address] documented in this encounter Visit Diagnoses Diagnosis Neck abscess Cellulitis and abscess of neck documented in this encounter Administered Medications Inactive Administered Medications - up to 3 most recent administrations Medication Order MAR Action Action Date Dose Rate Site busPIRone (Buspar) tablet 15 mg 15 mg, Oral, ONCE, 1 dose, On Tue02/06/24 at 0416, Routine Given 02/06/2024 4:18 AM EDT 15 mg diphenhydrAMINE (Benadryl) (50 mg/mL) injection 50 mg 50 mg, Intravenous, ONCE, 1 dose, On Tue02/06/24 at 0059, Administer 1 hour PRIOR to contrast medium administration for ct neck imaging study., Angio/IR (Day of Procedure), Routine Given 02/06/2024 3:57 AM EDT 50 mg iohexoL (Omnipaque) (350 mg/mL) solution 0-200 mL 0-200 mL, Intravenous, ONCE PRN, 1 dose, Starting on Tue02/06/24 at 0057, Until Tue02/06/24 at 1416, Per Protocol, Warning Vesicant/Irritant Medication , Radiology Contrast, Routine iohexoL (Omnipaque) (350 mg/mL) solution 0-200 mL 0-200 mL, Intravenous, ONCE PRN, 1 dose, Starting on Tue02/06/24 at 0057, Until Tue02/06/24 at 0516, Per Protocol, Warning Vesicant/Irritant Medication , Radiology Contrast, Routine Given 02/06/2024 5:16 AM EDT 110 mLs lamoTRIgine (LaMICtal) tablet 200 mg 200 mg, Oral, ONCE, 1 dose, On Tue02/06/24 at 0416, Routine Given 02/06/2024 4:18 AM EDT 200 mg methylPREDNISolone sod succ (pf) (SOLU-Medrol) (40 mg/1 mL) injection 40 mg 40 mg, Intravenous, ONCE, 1 dose, On Tue02/06/24 at 0104, Administer 4 hours PRIOR to contrast medium administration for ct neck imaging study. Given 02/06/2024 1:11 AM EDT 40 mg OLANZapine (ZyPREXA) tablet 5 mg 5 mg, Oral, ONCE, 1 dose, On Tue02/06/24 at 0416, Routine Given 02/06/2024 4:18 AM EDT 5 mg piperacillin-tazobactam (Zosyn) 4.5 g vial attach to sodium chloride 0.9% 100 mL Mini-Bag Plus 4.5 g, Intravenous, ONCE, 1 dose, On Tue02/05/24 at 2355, Administer over 0.5 Hours, Warning Vesicant/Irritant Medication Per service restorer emergency labeling, do not administer or Y-site with lactated ringers., Indication for (Active or Suspected): Skin/Skin Structure New Bag 02/06/2024 12:49 AM EDT 4.5 g 200 mL/hr vancomycin (Vancocin) 1.5 gram in sodium chloride 0.9% 500 mL infusion 1.5 g, Intravenous, ONCE, 1 dose, On Tue02/06/24 at 0832, Administer over 90 Minutes, Warning Vesicant/Irritant Medication , Indication for (Active or Suspected): Skin/Skin Structure New Bag 02/06/2024 9:17 AM EDT 1.5 g 333.3 mL/hr documented in this encounter Active and Recently Administered Medications Times are shown in EDT. Scheduled Medication Order 02/04/2024 02/05/2024 02/06/2024 busPIRone (Buspar) tablet 15 mg (COMPLETED) 15 mg, Oral, ONCE, 1 dose, On Tue02/06/24 at 0416, Routine 0418 (Given - Provid er: Michael Moran RN) diphenhydrAMINE (Benadryl) (50 mg/mL) injection 50 mg (COMPLETED) 50 mg, Intravenous, ONCE, 1 dose, On Tue02/06/24 at 0059, Administer 1 hour PRIOR to contrast medium administration for ct neck imaging study., Angio/IR (Day of Procedure), Routine 035 (Given - Provid er: Michael Moran RN) lamoTRIgine (LaMICtal) tablet 200 mg (COMPLETED) 200 mg, Oral, ONCE, 1 dose, On Tue02/06/24 at 0416, Routine 041 (Given - Provid er: Michael Moran RN) methylPREDNISolone sod succ (pf) (SOLU-Medrol) (40 mg/1 mL) injection 40 mg (COMPLETED) 40 mg, Intravenous, ONCE, 1 dose, On Tue02/06/24 at 0104, Administer 4 hours PRIOR to contrast medium administration for ct neck imaging study. 0111 (Given - Provid er: Michael Moran RN) OLANZapine (ZyPREXA) tablet 5 mg (COMPLETED) 5 mg, Oral, ONCE, 1 dose, On Tue02/06/24 at 0416, Routine 041 (Given - Provid er: Michael Moran RN) piperacillin-tazobactam (Zosyn) 4.5 g vial attach to sodium chloride 0.9% 100 mL Mini-Bag Plus (COMPLETED) 4.5 g, Intravenous, ONCE, 1 dose, On Tue02/05/24 at 2355, Administer over 0.5 Hours, Warning Vesicant/Irritant Medication Per service restorer emergency labeling, do not administer or Y-site with lactated ringers., Indication for (Active or Suspected): Skin/Skin Structure 0049 (New Bag - Prov ider: Michael Moran RN)0119 (Stopped - Provider: Michael Moran RN) vancomycin (Vancocin) 1.5 gram in sodium chloride 0.9% 500 mL infusion (COMPLETED) 1.5 g, Intravenous, ONCE, 1 dose, On Tue02/06/24 at 0832, Administer over 90 Minutes, Warning Vesicant/Irritant Medication , Indication for (Active or Suspected): Skin/Skin Structure 0917 (New Bag - Prov ider: Sergio Sanders RN)1047 (Stopped - Provider: Sergio Sanders RN) PRN Medication Order 02/04/2024 02/05/2024 02/06/2024 iohexoL (Omnipaque) (350 mg/mL) solution 0-200 mL 0-200 mL, Intravenous, ONCE PRN, 1 dose, Starting on Tue02/06/24 at 0057, Until Tue02/06/24 at 1416, Per Protocol, Warning Vesicant/Irritant Medication , Radiology Contrast, Routine iohexoL (Omnipaque) (350 mg/mL) solution 0-200 mL (COMPLETED) 0-200 mL, Intravenous, ONCE PRN, 1 dose, Starting on Tue02/06/24 at 0057, Until Tue02/06/24 at 0516, Per Protocol, Warning Vesicant/Irritant Medication , Radiology Contrast, Routine 0516 (Given - Provid er: Paris Sanchez) documented in this encounter Care Teams Plaster Machine Tender Relationship Specialty Start Date End Date Laura Ho MD [address] [place] [address] PCP - General Family Medicine 06/28/16 documented as of this encounter
--- OUTSIDE RECORDS SUMMARY | 2024-06-21 15:30 | XMS_ITS | Encounter Summary ---
Author Organization [facility] Address [facility] [address] [place] [address] Care Team Providers Care Cassandra Developer Name Role Phone Laura Ho MD Primary Care Provider [phone] Reason for Visit * Reason Onset Date Comments Appointment 10/28/2021 Encounter Details Date Type Department Care Team (Late st Contact Info) Description 10/28/2021 [place] [id number] Gorge Edgar MD [facility] [address] [place] [address] Appointment Social History Tobacco Use Types Packs/Day Years Used Date Smoking Tobacco: Every Day Cigarettes Smokeless Tobacco: Never Alcohol Use Standard Drinks/Week Comments Yes 6 (1 standard drink = 0.6 oz pur e alcohol) Sex and Gender Information Value Date Recorded Sex Assigned at Not on file Gender Identity Not on file Sexual Orientation Not on file documented as of this encounter Miscellaneous Notes * Telephone Encounter - Asuncion Chicas - 10/28/2021 4:02 PM EDT LM#2 to update registration and update registration. 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 Needs US & FUV scheduled. Please place orders for US in the event he calls back - I'm sending a letter today since we've attempted to call twice. documented in this encounter Plan of Treatment Not on file documented as of this encounter Visit Diagnoses Not on filedocumented in this encounter Care Teams Cassandra Developer Relationship Specialty Start Date End Date Laura Ho MD [address] [place] [address] PCP - General Family Medicine 06/28/16 documented as of this encounter
--- OUTSIDE RECORDS SUMMARY | 2024-06-21 15:30 | XMS_ITS | Encounter Summary ---
Author Organization [facility] Address [facility] [address] [place] [address] Care Team Providers Care Perforator Operator Name Role Phone aLura Ho MD Primary Care Provider Reason for Visit * Reason Comments Abscess R side neck Encounter Details Date Type Department Care Team (Late st Contact Info) Description 12/02/2023 5:48 PM EDT - 12/03/2023 2:10 AM EDT [place] [address] Yfn Silverman MD [facility] [place] [address] Abscess, neck Discharge Disposition: Home Social History Tobacco Use [...] Sign Reading Time Taken Comments Blood Pressure 122/75 12/03/2023 2:00 AM EDT Pulse 63 12/02/2023 6:01 PM EDT Temperature 37.1 ??C (98.8 ??F) 12/02/2023 6:01 PM ED T Respiratory Rate 12 12/03/2023 2:00 AM EDT Oxygen Saturation 96% 12/03/2023 2:00 AM EDT Inhaled Oxygen Concentration - - Weight 99.8 kg (220 lb) 12/02/2023 3:44 PM EDT Height 185.4 cm (6' 1) 12/02/2023 3:44 PM EDT Body Mass Index 29.03 12/02/2023 3:44 PM EDT documented in this encounter Discharge Instructions * Discharge Instructions* Yfn Silverman MD - 12/03/2023 1:39 AM EDT Your abscess has been drained by the ENT specialist. We are prescribing you 7 more days of Augmentin. Please follow-up with your PCP and return to the emergency department if you are experiencing fevers, chills, sweats or feel that your abscess is draining or becoming more red. documented in this encounter Medications at Time [...] tablet by mouth 2 times daily for 7 days. 14 tablet 12/03/2023 12/10/2023 documented as of this encounter ED Notes * Ira Guaman, DO - 12/02/2023 11:59 PM EDT Images from the original note were not included. ED RESIDENT NOTE Patient: Harvey Espinosa Age (): 43 y.o. (1980) SUBJECTIVE HPI: Harvey Espinosa is a 43 y.o. male with PMH IVDU (has not used in many years), bipolar disorder, schizoaffective disorder, and ADD who presented to the ED for right-sided neck abscess. Patient notesthat this has been present for the past 5 days. He states it started after he injected his ADD medication into this vein. Him and his note that he does this in order to prevent his relapse with d rug use. He states that he was recently seen at [facility] 2 days ago and given IV antibiotics and a 10-day course of Augmentin. He does report that he had CT imaging at that time. He does endorse a history of MRSA. Since then he denies any fevers or chills. Denies any chest pain, shortness of breath, neck stiffness, or difficulty swallowing. He presented today due to concerns that he was not improvingfrom the antibiotics. He is here with his who is at bedside. ROS as per HPI. Past Medical and Surgical Histories, Social History, Medications, Allergies were reviewed in the chart. Pt was seen under the supervision of an attending physician. OBJECTIVE Vital Signs: ED Triage Vitals BP: 133/79 [12/02/23 1544] Heart Rate: 81 [12/02/23 1544] Resp: 18 [12/02/23 1544] Temp: 36.8 ??C (98.2 ??F) [12/02/23 1544] Temp src: Temporal [12/02/23 154] SpO2: 96 % [12/02/23 1801] O2 Device: RA [12/02/23 154] O2 Flow Rate (L/min): n/a Physical Exam HENT: Head: Normocephalic. Neck: Comments: Right large palpable abscess that is fluctuant, along the course of the SCM Cardiovascular: Rate and Rhythm: Normal rate and regular rhythm. Pulses: Normal pulses. Pulmonary: Effort: Pulmonary effort is normal. Breath sounds: Normal breath sounds. Abdominal: General: Abdomen is flat. Bowel sounds are normal. Palpations: Abdomen is soft. Musculoskeletal: Cervical back: Normal range of motion. No rigidity. Lymphadenopathy: Cervical: No cervical adenopathy. Skin: General: Skin is warm. Capillary Refill: Capillary refill takes less than 2 seconds. Neurological: Mental Status: He is alert. I have reviewed imaging, which is significant for: Request For 2nd Read CT Neck Final Result Asymmetric material at the right tongue base and vallecula not visible on the prior study. This may represent lobular lymphoid tissue or neoplasm. This area is amenable to direct inspection. 2.5 cm irregular rim-enhancing collection in the right lower neck just deep to the sternocleidomastoid muscle. This collection is at the same site as but much smaller than an irregular rim-enhancing collection visible on the study of 2020. The appearance of this collection is nonspecific and differential diagnosis includes seroma and abscess. Two small unchanged metallic foreign bodies are present along the collection as described above. Two mildly enlarged right sided cervical lymph nodes. They are unchanged or slightly smaller than those present on the prior study. Thank you for letting us participate in the care of this patient. If you are a health care provider and have any questions regarding this report, please contact the number below. For patients who have questions please contact the health healthcare administration intern that requested your imaging first. [facility] ED Course as of 12/03/238December 02, 20[address] results 2159 Paged ENT Sat December 03, 2023 0005 WBC: 9.0 0005 Hemoglobin: 14.0 0005 Hematocrit: 43.1 0005 Platelets: 334 0005 BUN(!): 8 0005 Creatinine: 1.05 0005 Sodium: 141 0005 Potassium: 3.8 0005 CRP(!): 19.6 0005 Sed Rate(!): 53 MDM: This is a 43-year-old male presenting with a left-sided neck abscess in the setting of injecting into this area. Initial vitals stable. He is not had any systemic infectious symptoms however will send blood cultures. No neck stiffness or photophobia to suggest meningitis. No trismus. He is able to manage his own secretions. No respiratory distress or increased work of breathing. He is not ill-appearing, has not had rapid progression of the wound, or hemorrhagic bullae to suggest NSTI. The area is localized and with a area of palpable fluctuance concerning for abscess. Question whether ornot this tracks deeper. Will send second read on CT imaging done 2 days ago. Will also obtain basiclabs and inflammatory markers. WBC 9.0. Inflammatory markers mildly elevated with CRP 19.6 and ESR 53. Electrolytes otherwise unremarkable. He was given a dose of Unasyn. CT showed two 2.5 cm localized collections deep to the sternocleidomastoid muscle similar to his prior infection site. CT also co mmented on asymmetric material with right tongue base and vallecula. ENT consulted. DIAGNOSIS: 1. Abscess, neck Patient signed out to oncoming ED team pending ENT formal evaluation recommendations. Anticipate admission. Ira Guaman D.O. Emergency Medicine Resident, PGY-2 Ira Guaman DO Resident 12/03/23 0013 Associated attestation - Yfn Silverman MD - 12/07/2023 2:20 PM EDT ED ATTENDING ATTESTATION See my note for additional details The patient was seen in conjunction with the resident physician. I have independently performed thekey portions of the history and physical exam. I have personally reviewed nursing notes, vital signs, and diagnostic studies including labs, imaging studies and EKGs. I have discussed the details of the case with the resident and agree with the assessment and plan as described in the resident's note, unless stated otherwise in my separate note. * Laxmi Redding RN - 12/02/2023 10:50 PM EDT Pt requesting his daily night time medications. Provider notified. * Jodee Bee RN - 12/02/2023 7:14 PM EDT Report to Laxmi SEPULVEDA. * Jodee Bee RN - 12/02/2023 6:47 PM EDT Laurie Silverman and Deniz at bedside to assess pt. * Jodee Bee RN - 12/02/2023 5:54 PM EDT Rec'd via ambulation w/ steady gait. * Jeff Yung APRN - 12/02/2023 3:44 PM EDT Images from the original note were not included. Brief Provider in triage note 43-year-old male with past medical history of opioid use disorder, hepatitis C, schizoaffective disorder, bipolar disorder, and others presents to ED AOx4 and ambulatory complaining of a recurrent right-sided neck infection that recurred 2 weeks ago but acutely worsening over the last week. Patientwas previously seen at an [facility] and was admitted for IV antibiotics and was discharged home on Augment in. Patient states despite taking Augmentin, he has had increased swelling and erythema to the right side of his neck. Patient states he has had similar deep space neck infection and January 2021 requiring surgical intervention. Patient states the infection is most likely from injection site. Patient denies any difficulty speaking, difficulty swallowing, feel like his throat is closing, etc. Denies any fevers, chills, body aches, etc. Jeff Yung APRN 12/02/23 1546 documented in this encounter Miscellaneous Notes * Consult Note - Carina Askew MD - 12/03/2023 12:31 AM EDT OTOLARYNGOLOGY - HEAD & NECK SURGERY CONSULT NOTE Name: Harvey Espinosa Age/Sex: 43 y.o. male ENT Attending: [facility] Day: 2 History of Present Illness We are seeing Harvey Espinosa today at the request of Dr. Yfn Silverman MD regarding neck abscess. Harvey Espinosa is a 43 y.o. male 43 y.o. male with PMH IVDU (has not used in many years), bipolar disorder, schizoaffective disorder, and ADD who presented to the ED for right-sided neck abscess. Patient notes that this has been present for the past 5 days. He states it started after he injectedhis ADD medication into this vein. Him and his note that he does this in order to prevent his relapse with drug use. He states that he was recently seen at [facility] 2 days ago and given IV antibiotics and a 10-day course of Augmentin. CT scan at the time showed ~ 2 x 2 cm fluid collection deep to SCM. On arrival, patient VSS, afebrile, WBC 9, elevated ESR, CRP. He denies neck stiffness, odynophagia,dysphagia, voice changes. He is here with his who is at bedside. Review of Systems Pertinent positive findings discussed [...] 3.98) performed by Nelson Gong MD at [facility] MAIN OR PRO LAP, CHOLECYSTECTOMY/GRAPH N/A 09/15/2020 LAPAROSCOPIC [facility]LE[facility]OM[facility] 11.47) performed by Jorge Luis Rios MD [facility] MA[facility] OR Medications & Allergies No current facility-administered medications on file prior to encounter. Current Outpatient Medications on File Prior to Encounter Medication Sig Dispense Refill amoxicillin-clavulanate (Augmentin) 875-125 mg Tablet Take 1 tablet by mouth 2 times daily. 20 tablet 0 prazosin (Minipress) 2 mg Capsule Take 4 [...] Tablet Take 125 mg by mouth nightly. Pcn [penicillins] Social History [place] [facility] [address] Social History Socioeconomic History Marital status: Spouse [...] Not on file Intimate Partner Violence: Not on file Housing Stability: Not on file Family History Family History Problem Relation Age of Onset Alcohol Use Disorder Mother Heart Disease Mother Vitals Last value 24hr Range Temperature: 37.1 ??C (98.8 ??F) Temp: [36.8 ??C (98.2 ??F)-37.1 ??C (98.8 ??F)] Heart Rate: 63 Heart Rate: [63-81] Blood Pressure: 109/82 BP: (105-133)/(72-82) Respiratory Rate: 16 Resp: [12-18] SpO2: 98 % SpO2: [93 %-99 %] Physical Exam General: NAD, non-ill appearing Face: Symmetric without dysmorphic features Eyes: EOMI, conjunctiva healthy Ears: Auricles symmetric, no lesions Nose: Patent nares, grossly normal appearance Oral Cavity/Pharynx: Mucosa is pink, oropharynx symmetric Neck: Soft, trachea midline. ~ 2 x 3 cm area of fluctuance superficial lower third of SCM. TTP. Mildly erythematous. No fistula tracts noted. No other cervical lymphadenopathy appreciated. Chest: Unlabored breathing, regular rate Neuro: Alert & oriented, moving extremities x 4 Procedures I&D of Right Neck Abscess Benefits and risks reviewed including bleeding, infection, damage to surrounding structures, recurrence, need for further procedures. Consent obtained. Area cleansed and ~ 2 cc of 2% lidocaine 1:200,000 epinephrine injected with good effect. Area prepped and draped in sterile fashion. 11 blade used to make ~ 1.5 cm incision with immediate expressionof purulent drainage. Cultures obtained. Hemostat used to gently open up any septations and area and underlying SCM palpated to ensure complete drainage of abscess pocket. Wound bed irrigated and strip gauze placed in incision. Gauze dressing placed over top. Patient tolerated this well without complication. Labs Recent Labs 12/02/23 1740 WBC 9.0 HGB 14.0 HCT 43.1 PLATELET 334 NA 141 K 3.8 CL 106 CO2 25 BUN 8* CREATININE 1.05 GLUCOSE 90 CALCIUM 10.0 Imaging EXAMINATION: REQUEST FOR 2ND READ CT NECK CLINICAL HISTORY: 43 y.o. male with right sided neck absess; Sending Institution [facility]; Date of exam [id number]; I believe a reinterpretation of this exam may alter care of Patient. Yes TECHNIQUE: CT images of the neck were acquired during the intravenous administration of iodinated contrast.Multiplanar reformations have been performed. COMPARISON: CT neck of 01/10/2021 FINDINGS: There is a 2.5 cm angulated collection in the right lower neck just deep to the sternocleidomastoid muscle. There is substantial surrounding soft tissue attenuation material with only minor enhancement. This collection lies at the site of a previously present but much larger rim-enhancing collection that is evident on the study of 2020 two small metallic foreign bodies are present along the margins of the collection one laterally and the other along the anterior medial and inferior extent; they are similar to those present on the prior study PHARYNGEAL MUCOSA AND PARAPHARYNGEAL SPACE: There are bilateral tonsilloliths. There is asymmetric material at the right tongue base and vallecula not clearly present on the prior study RETROPHARYNGEAL AND PREVERTEBRAL SPACES:NORMAL LARYNX: Normal supraglottic, glottic and subglottic larynx. TRACHEA and LUNGS: The trachea is of normal appearance. The upper lungs are clear. LYMPH NODES: There multiple prominent lymph nodes in the right neck. At least two lymph nodes at levels two PN three be exceed 1 cm in greatest axial dimension. No other adenopathy is evident within the neck. SALIVARY GLANDS: Normal parotid, submandibular and sublingual glands. THYROID: Normal. VESSELS AND CAROTID SPACE: The right jugular vein appears focally compressed by the right-sided neck collection with no jugular venous thrombosis is evident BONES: No significant abnormality. OTHER: Imaged portions of the brain and orbits are of normal appearance. IMPRESSION Asymmetric material at the right tongue base and vallecula not visible on the prior study. This may represent lobular lymphoid tissue or neoplasm. This area is amenable to direct inspection. 2.5 cm irregular rim-enhancing collection in the right lower neck just deep to the sternocleidomastoid muscle. This collection is at the same site as but much smaller than an irregular rim-enhancing collection visible on the study of 2020. The appearance of this collection is nonspecific and differential diagnosis includes seroma and abscess. Two small unchanged metallic foreign bodies are present along the collection as described above. Two mildly enlarged right sided cervical lymph nodes. They are unchanged or slightly smaller than those present on the prior study. *Personally reviewed and evaluated ASSESSMENT & RECOMMENDATIONS Harvey Espinosa is a 43 y.o. male who presents with right neck abscess following recent injectionon ~ 11/21. Recent CT scan from earlier this week shows fluid collection deep to SCM, however patient presented today with a now superficial fluid collection, which was successfully drained at bedside. Reviewed warning signs to seek care for including increasing drainage, pain, fevers/chills. Discussed continued massage of the area over the next few days to continue to encourage drainage (and removal of gauze dressing if it does not fall out). Patient understanding and all questions answered. Recommendations: Continue Augmentin - please send patient with 7 days worth. Continue palpation/massage of area to encourage continued drainage. Follow up with PCP next week. __ Carina MD Azar, PGY-5, Pager [phone] 12/03/23 12:31 AM ENT Team Pager: [phone] Associated attestation - Johnson Griffith MD - 12/05/2023 11:14 AM EDT I discussed this patient with the resident by phone and have personally reviewed his neck CT scan and the radiology report. I agree with the resident's findings and plan as documented, although I didnot personally examine or interview the patient during his time in the ED and I did not participatein his I/D procedure. This was therefore a resident-only encounter. documented in this encounter Plan of Treatment Not on file documented as of this encounter Procedures Procedure Name Priority Date/Time Associated Diagnosis Comments MRSA PCR SCREEN STAT 12/03/2023 2:00 AM EDT REQUEST FOR 2ND READ CT NECK STAT 12/02/2023 8:01 PM EDT CRP, ACUTE INFLAMMATION STAT 12/02/2023 5:40 PM EDT HEMOGRAM STAT 12/02/2023 5:40 PM EDT DIFFERENTIAL, AUTOMATED STAT 12/02/2023 5:40 PM EDT BLOOD CULTURE STAT 12/02/2023 5:40 PM EDT SEDIMENTATION RATE STAT 12/02/2023 5: 40 PM EDT CBC (WITH DIFF) STAT 12/02/2023 5:40 PM EDT COMPREHENSIVE METABOLIC PANEL STAT 12/02/2023 5:40 PM EDT documented in this encounter Results * MRSA PCR Screen ([facility]/CGP/APD/NLH) (12/03/2023 2:00 AM EDT) MRSA PCR Negative Negative [facility] MRSA (Interp) Methicillin-resist ant Staphylococcus aureus (MRSA) is NOT DETECTED The MRSA target DNA sequences (mec and SCC) were not detected within the acceptable ranges using the Xpert MRSA NxG on the GeneXpert Dx System ([employer]). This suggests the absence of MRSA in the patient specimen submitted for testing. This test is cleared by the U.S. Food and Drug Administration for clinical use and its performance characteristics have been verified by the [facility] at [facility]. This result does not rule out the presence of any other organisms. Rare false negative results may occur if MRSA is present at low concentrations with much higher concentrations of other organisms including MRSE or S. aureus with an empty SCC cassette. [facility] Comment: [VERIFIED DATE]12.04.23 Verified By:Holley Nash (Electronic Signature) Nasopharyngeal Swab 12/03/19 2:00 AM EDT 12/03/2023 3:02 PM EDT Comment:Specimen Type->Nasop haryngeal Swab Narrative Resulting Agency Comment Spec In Lab Jeff Yung ELECTRICAL HIGH TENSION TESTER MOLECULAR ORDERABLES [facility] [place] [address] * Request For 2nd Read CT Neck (12/02/2023 8:01 PM EDT) WORKSTATION ID [id number] RAD Anatomical Region Laterality Modality Neck SO Impressions 12/02/2023 8:53 PM EDT Asymmetric material at the right tongue base and vallecula not visible on the prior study. This may represent lobular lymphoid tissue or neoplasm. This area is amenable to direct inspection. 2.5 cm irregular rim-enhancing collection in the right lower neck just deep to the sternocleidomastoid muscle. This collection is at the same site as but much smaller than an irregular rim-enhancing collection visible on the study of 2020. The appearance of this collection is nonspecific and differential diagnosis includes seroma and abscess. Two small unchanged metallic foreign bodies are present along the collection as described above. Two mildly enlarged right sided cervical lymph nodes. They are unchanged or slightly smaller than those present on the prior study. Thank you for letting us participate in the care of this patient. ??If you are a health care provider and have any questions regarding this report, please contact the number below. ??For patients who have questions please contact the health healthcare administration intern that requested your imaging first. ? Electronically signed by: Collins Nicholson [facility] ([phone]), at 12/02/2023 8:53 PM Narrative 12/02/2023 8:53 PM EDT EXAMINATION: REQUEST FOR 2ND READ CT NECK CLINICAL HISTORY: 43 y.o. male with right sided neck absess; Sending Institution [facility]; Date of exam [id number]; I believe a reinterpretation of this exam may alter care of Patient. Yes TECHNIQUE: CT images of the neck were acquired during the intravenous administration of iodinated contrast.Multiplanar reformations have been performed. COMPARISON: CT neck of 01/10/2021 FINDINGS: There is a 2.5 cm angulated collection in the right lower neck just deep to the sternocleidomastoid muscle. There is substantial surrounding soft tissue attenuation material with only minor enhancement. This collection lies at the site of a previously present but much larger rim-enhancing collection that is evident on the study of 2020 two small metallic foreign bodies are present along the margins of the collection one laterally and the other along the anterior medial and inferior extent; they are similar to those present on the prior study PHARYNGEAL MUCOSA AND PARAPHARYNGEAL SPACE: There are bilateral tonsilloliths. There is asymmetric material at the right tongue base and vallecula not clearly present on the prior study RETROPHARYNGEAL AND PREVERTEBRAL SPACES:NORMAL LARYNX: Normal supraglottic, glottic and subglottic larynx. TRACHEA and LUNGS: The trachea is of normal appearance. The upper lungs are clear. LYMPH NODES: There multiple prominent lymph nodes in the right neck. At least two lymph nodes at levels two PN three be exceed 1 cm in greatest axial dimension. No other adenopathy is evident within the neck. SALIVARY GLANDS: Normal parotid, submandibular and sublingual glands. THYROID: Normal. VESSELS AND CAROTID SPACE: The right jugular vein appears focally compressed by the right-sided neck collection with no jugular venous thrombosis is evident BONES: No significant abnormality. OTHER: Imaged portions of the brain and orbits are of normal appearance. Procedure Note Collins Nicholson MD - 12/02/2023 EXAMINATION: REQUEST FOR 2ND READ CT NECK CLINICAL HISTORY: 43 y.o. male with right sided neck absess[facility] of exam [id number]; I believe a reinterpretation of this exam mayalter care of Patient. Yes TECHNIQUE: CT images of the neck were acquired during the intravenous administrationof iodinated contrast.Multiplanar reformations have been performed. COMPARISON: CT neck of 01/10/2021 FINDINGS: There is a 2.5 cm angulated collection in the right lower neck just deepto the sternocleidomastoid muscle. There is substantial surrounding soft tissue attenuation material with only minor enhancement. This collection lies atthe site of a previously present but much larger rim-enhancing collection thatis evident on the study of 2020 two small metallic foreign bodies are presentalong the margins of the collection one laterally and the other along theanterior medial and inferior extent; they are similar to those present on the priorstudy PHARYNGEAL MUCOSA AND PARAPHARYNGEAL SPACE: There are bilateraltonsilloliths. There is asymmetric material at the right tongue base and vallecula notclearly present on the prior study RETROPHARYNGEAL AND PREVERTEBRAL SPACES:NORMAL LARYNX: Normal supraglottic, glottic and subglottic larynx. TRACHEA and LUNGS: The trachea is of normal appearance. The upper lungsare clear. LYMPH NODES: There multiple prominent lymph nodes in the right neck. Atleast two lymph nodes at levels two PN three be exceed 1 cm in greatest axial dimension. No other adenopathy is evident within the neck. SALIVARY GLANDS: Normal parotid, submandibular and sublingual glands. THYROID: Normal. VESSELS AND CAROTID SPACE: The right jugular vein appears focallycompressed by the right-sided neck collection with no jugular venous thrombosis isevident BONES: No significant abnormality. OTHER: Imaged portions of the brain and orbits are of normal appearance. IMPRESSION Asymmetric material at the right tongue base and vallecula not visible onthe prior study. This may represent lobular lymphoid tissue or neoplasm. Thisarea is amenable to direct inspection. 2.5 cm irregular rim-enhancing collection in the right lower neck justdeep to the sternocleidomastoid muscle. This collection is at the same site as butmuch smaller than an irregular rim-enhancing collection visible on the study [id number]. The appearance of this collection is nonspecific and differentialdiagnosis includes seroma and abscess. Two small unchanged metallic foreign bodiesare present along the collection as described above. Two mildly enlarged right sided cervical lymph nodes. They are unchangedor slightly smaller than those present on the prior study. Thank you for letting us participate in the care of this patient. If youare a health care provider and have any questions regarding this report,please contact the number below. For patients who have questions please contactthe health healthcare administration intern that requested your imaging first. Electronically signed by: Collins Nciholson MD, [facility]([phone]), at 12/02/2023 8:53 PM Yfn Silverman MD IMG OUTSIDE INTERP RETATION ORDERABLES * (ABNORMAL) Differential, Automated (12/02/2023 5:40 PM EDT) Neutrophil % 65.5 % [facility] Neutrophil Absolute 5.91 1.70 - 6.10 x10(3)/ L [facility] Lymph % 23.4 % [facility] Lymphocytes Abs 2.1 0.9 - 3.2 x10(3)/ L [facility] Monocyte % 6.2 % [facility] Monocyte Abs 0.6 0.3 - 0.9 x10(3)/ L [facility] Eos % 3.2 % [facility] Eosinophils Abs 0.3 0.0 - 0.4 x10(3)/[facility] Basophil % 1.0 % [facility] Baso Absolute 0.1 0.0 - 0.1 x10(3)/ L [facility] Immature Gran % 0.70 % [facility] Comment: Immature granulocytes(IG's)percentage and absolute count will include metamyelocytes, myelocytes, and promyelocytes. Blood smears from CBCs yielding IG's will be scanned manually for concordance. If this scan disagrees with the automated IG or if promyelocytes are noted, a manual differential will be performed. Immature Gran Absolute 0.06(H) 0.00 - 0.04 x10(3)/ L [facility] Blood 12/02/2023 5:40 PM EDT 12/02/2023 5:49 PM EDT Narrative Resulting Agency Comment Spec In Lab Jeff Yung APRN HEMATOLOGY ORDERABLE S [facility] [place] [address] * Hemogram (12/02/2023 5:40 PM EDT) White Blood Cell 9.0 4.0 - 9.5 x10(3)/[facility] Red Blood Cell 4.98 4.58 - 5.54 x10(6)/[facility] Hemoglobin 14.0 13.7 - 16.5 g/dL [facility] Hematocrit 43.1 40.5 - 48.5 % [facility] Mean Cell Volume 86.5 82.9 - 93.1 fL [facility] Mean Cell Hemoglobin 28.1 27.5 - 32.1 pg [facility] Mean Cell Hemoglobin Concentration 32.5 32.0 - 35.7 g/dL [facility] Platelet 334 145 - 357 x10(3)/[facility] RDW Standard Deviation 40.8 36.0 - 45.0 fL [facility] RDW coefficient of variation 12.8 11.4 - 13.8 % [facility] Mean Platelet Volume 9.9 7.6 - 12.9 fL [facility] NRBC% auto 0.0 % [facility] NRBC Absolute 0.000 0.000 - 0.000 x10(3)/[facility] Blood 12/02/2023 5:40 PM EDT 12/02/2023 5:49 PM EDT Narrative Resulting Agency Comment Spec In Lab Jeff Yung APRN HEMATOLOGY ORDERABLE S [facility] [place] [address] * (ABNORMAL) CRP, acute inflammation (12/02/2023 5:40 PM EDT) [facility] C-Reactive Protein 19.6(H) <=4.9 mg/L [facility] Blood 12/02/2023 5:40 PM EDT 12/02/2023 5:49 PM EDT Narrative Resulting Agency Comment Spec In Lab Jeff Yung APRN CHEMISTRY ORDERABLES Performing Organization Address [facility] Co de Phone Number [facility] [place] [address] * (ABNORMAL) Sedimentation rate (12/02/2023 5:40 PM EDT) [facility] Sedimentation Rate Automated 53(H) 2 - 28 mm/hr [facility] Comment: Effective June 20, 2019 new capillary photometric technology has resulted in a change in reference ranges. It is recommended that each ESR result be reviewed with its own age appropriate reference range. Blood 12/02/2023 5:40 PM EDT 12/02/2023 5:49 PM EDT Narrative Resulting Agency Comment Spec In Lab Jeff Yung APRN HEMATOLOGY ORDERABLE S Performing Organization Address [facility] Co de Phone Number [facility] [place] [address] * (ABNORMAL) Comprehensive metabolic panel (non-fasting) (12/02/2023 5:40 PM EDT) [facility] Glucose 90 65 - 199 mg/dL [facility] Comment:Diabetes: >=200 mg/d L plus symptoms Blood Urea Nitrogen 8(L) 10 - 20 mg/dL [facility] Creatinine 1.05 0.80 - 1.50 mg/dL [facility] Sodium 141 135 - 145 mmol/L [facility] Potassium 3.8 3.5 - 5.0 mmol/L [facility] Comment: Please note: ??Patients with WBC >100,000 may have falsely elevated Potassium levels. ??For accurate Potassium quantification in these patients send serum separator tube (gold top) for subsequent determinations. ??Contact the Clinical Chemistry Laboratory if there are any questions. Chloride 106 98 - 107 mmol/L [facility] Carbon Dioxide 25 22 - 31 mmol/L [facility] Anion Gap 10 5 - 15 mmol/L [facility] Calcium 10.0 8.5 - 10.5 mg/dL [facility] Protein, Total 7.7 6.1 - 8.0 g/dL [facility] Albumin 4.5 3.2 - 5.2 g/dL [facility] Aspartate Aminotransferase 12 0 - 39 unit/L [facility] Alanine Aminotransferase 12 0 - 55 unit/L [facility] Alkaline Phosphatase 88 40 - 130 unit/L [facility] Bilirubin, Total 0.2 0.2 - 1.3 mg/dL [facility] Est Glomerular Filtration Rate 89 >=60 mL/min/1. 73 m?? [facility] Comment: This patient's estimated GFR [...] and symptoms in addition to eGFR. Blood 12/02/2023 5:40 PM EDT 12/02/2023 5:49 PM EDT Narrative Resulting Agency Comment Spec In Lab Jeff Yung APRN CHEMISTRY ORDERABLES [facility] [place] [address] * Blood culture (12/02/2023 5:40 PM EDT) Blood Culture No growth at 5 days. [facility] Blood ANTECUBITAL REGION STRUCTURE / Unknown 12/02/2023 5:40 PM EDT 12/02/2023 6:18 PM EDT Narrative Resulting Agency Comment Spec In Lab Jeff Yung ELECTRICAL HIGH TENSION TESTER MICROBIOLOGY - BLOOD ORDERABLES [facility] [place] [address] documented in this encounter Visit Diagnoses Diagnosis Abscess, neck Cellulitis and abscess of neck documented in this encounter Administered Medications Inactive Administered Medications - up to 3 most recent administrations Medication Order MAR Action Action Date Dose Rate Site ampicillin-sulbactam (Unasyn) 3 g vial attach to sodium chloride 0.9% 100 mL Mini-Bag Plus 3 g, Intravenous, ONCE, 1 dose, On Tue12/02/23 at 2120, Administer over 15 Minutes, Attach to 100 mL sodium chloride 0.9% Mini-Bag Plus. Warning Vesicant/Irritant Medication , Indication for (Active or Suspected): Skin/Skin Structure New Bag 12/02/2023 9:31 PM EDT 3 g 400 mL/hr busPIRone (Buspar) tablet 15 mg 15 mg, Oral, NIGHTLY, First dose on Tue12/02/23 at 2258, Until Discontinued, Routine Given 12/02/2023 11:28 PM EDT 15 mg lidocaine-EPINEPHrine (pf) (2% - 1:200,000) injection 1 mL 1 mL, Intradermal, ONCE, 1 dose, On Tue12/03/23 at 0047, Warning Vesicant/Irritant Medication , Routine Given 12/03/2023 12:47 AM EDT 1 mL prazosin (Minipress) capsule 2 mg 2 mg, Oral, NIGHTLY, First dose on Tue12/02/23 at 2258, Until Discontinued, Routine Given 12/02/2023 11:28 PM EDT 2 mg documented in this encounter Active and Recently Administered Medications Times are shown in EDT. Scheduled Medication Order 12/01/2023 12/02/2023 12/03/2023 ampicillin-sulbactam (Unasyn) 3 g vial attach to sodium chloride 0.9% 100 mL Mini-Bag Plus (COMPLETED) 3 g, Intravenous, ONCE, 1 dose, On Tue12/02/23 at 2120, Administer over 15 Minutes, Attach to 100 mL sodium chloride 0.9% Mini-Bag Plus. Warning Vesicant/Irritant Medication , Indication for (Active or Suspected): Skin/Skin Structure 2130 (New Bag - Provider: Laxmi Redding RN)2145 (Stopped - Provider: Laxmi Redding RN) busPIRone (Buspar) tablet 15 mg 15 mg, Oral, NIGHTLY, First dose on Tue12/02/23 at 2258, Until Discontinued, Routine 2328 (Given - Provider: Laxmi Redding RN) lidocaine-EPINEPHrine (pf) (2% - 1:200,000) injection 1 mL (COMPLETED) 1 mL, Intradermal, ONCE, 1 dose, On Tue12/03/23 at 0047, Warning Vesicant/Irritant Medication , Routine 0047 (Given - Provid er: Laxmi Redding RN - Comment: Handed off to ENT provider for procedure) prazosin (Minipress) capsule 2 mg 2 mg, Oral, NIGHTLY, First dose on Tue12/02/23 at 2258, Until Discontinued, Routine 2328 (Given - Provider: Laxmi Redding RN) documented in this encounter Care Teams Perforator Operator Relationship Specialty Start Date End Date Laura Ho MD [address] [place] [address] PCP - General Family Medicine 06/28/16 documented as of this encounter
--- OUTSIDE RECORDS SUMMARY | 2024-06-21 15:30 | XMS_ITS | Encounter Summary ---
Author Organization [facility] Address [facility] [place] [place] [address] Care Team Providers Care Outer Diameter Grinder Tool Name Role Phone Laura Ho MD Primary Care Provider [phone] Encounter Details Date Type Department Care Team (Late st Contact Info) Description 11/05/2021 2:15 PM EDT Ancillary Procedure Radiology Library at [facility] [place] [place] [id number] Laura Ho MD [address] [place] [address] Social History Tobacco Use Types Packs/Day Years [...] Procedure Name Priority Date/Time Associated Diagnosis Comments FILM LIBRARY STORAGE ONLY DX LOWER EXTREMITY Routine 11/05/2021 2:14 PM EDT documented in this encounter Results * Film Library- Storage Only DX Lower Extremity (11/05/2021 2:14 PM EDT) Narrative SUSAN - 11/05/2021 2:14 PM EDT This exam is auto-finalizing. It's purpose is for storage only. Laura Ho MD IMG FILM LIBRARY ORD ERABLES [place], [place] documented in this encounter Visit Diagnoses Not on filedocumented in this encounter Care Teams Outer Diameter Grinder Tool Relationship Specialty Start Date End Date Laura Ho MD [address] [place] [address] PCP - General Family Medicine 06/28/16 documented as of this encounter
--- OUTSIDE RECORDS SUMMARY | 2024-06-21 15:30 | XMS_ITS | Clinical Summary ---
Author Organization [facility] Address [facility] [place] [address] Care Team Providers Care Computer Game Programmer Name Role Phone Laura Ho MD Primary Care Provider [phone] Allergies Active Allergy Reactions Criticality Noted Date Comments Iodinated Contrast Media Hives Medium 02/06/2024 Medications Medication Sig Dispensed Refills Start Date End Date Status lamoTRIgine (LAMICTAL) 25 mg Tablet Take 125 mg by mouth nightly. Active lithium 300 mg Capsule Take 1,050 mg by mouth nightly. Active buprenorphine-nalOXo ne (SUBOXONE) 8-[address] 16 mg under the tongue daily. Active Dexmethylphenidate 30 mg Capsule, Multiphasic Rel.50-50 Take 30 mg by mouth daily. Active QUEtiapine (SEROqueL) 100 mg Tablet Take 400 mg by mouth nightly. Active buspirone HCl (BUSPIRONE ORAL) Take 5 mg by mouth 2 times daily. Takes midday and nightly Active triamcinolone (KENALOG) 0.1 % OintmentIndications: Hand eczema,Prurigo nodularis Apply twice daily to the affected areas on the hands and lower legs for 21 days, then take one week off, and repeat as needed. Can occlude with cotton gloves after application to the hands at night 80 g 2 05/19/2020 Active cloNIDine (CATAPRES) 0.1 mg/24 hr Patch Weekly Change 1 patch on the skin once a week. Sundays Active alendronate (Fosamax) 70 mg Tablet Take 70 mg by mouth every 7 days. Take in AM with full glass of water, on an empty stomach. Do not lie down for 30 min. Saturdays. Active acyclovir (ZOVIRAX) 200 mg Capsule as needed. 08/08/2020 Active prazosin (Minipress) 2 mg Capsule Take 4 mg by mouth nightly. Active Active Problems Problem Noted Date Diagnosed Date Neck abscess 01/11/2021 Smokes 09/09/2020 Bipolar disorder 09/09/2020 History of hepatitis C 09/09/2020 PTSD (post-traumatic stress disorder) 09/09/2020 Schizoaffective disorder 09/09/2020 Chronic constipation 09/09/2020 ADD (attention deficit disorder) 09/09/2020 Opioid dependence on agonist therapy 09/09/2020 Overview (09/09/2020): Per PDMP Sep 09, 2020: Suboxone 8-2, #2 films qd prescribed by Santos Ortiz MD. 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 Resolved Problems Problem Noted Date Diagnosed Date Resolved Date Injury, superficial, hand with infection 12/10/2015 09/09/2020 Cellulitis of hand 12/09/2015 Family History Medical History Relation Comments Alcohol Use Disorder Mother Heart Disease Mother Relation Status Comments Mother Alive Social History Tobacco Use Types Packs/Day Years [...] on file Sexual Orientation Not on file Last Filed Vital Signs Vital Sign Reading Time Taken Comments Blood Pressure 128/77 02/06/2024 11:45 AM EDT Pulse 98 02/05/2024 10:23 PM EDT Temperature 36.7 ??C (98.1 ??F) 02/06/2024 9:21 AM ED T Respiratory Rate 18 02/05/2024 10:23 PM EDT Oxygen Saturation 95% 02/06/2024 11:45 AM EDT Inhaled Oxygen Concentration - - Weight 91.2 kg (201 lb) 02/09/2024 3:10 PM EDT Height 185.4 cm (6' 1) 02/09/2024 3:10 PM EDT Body Mass Index 26.52 02/09/2024 3:10 PM EDT Plan of Treatment Health Maintenance Due Date Last Done Comments CT Colonography 1978 Colonoscopy 1978 Colorectal Cancer Screening 1978 FIT DNA 1978 FIT 1978 Sigmoidoscopy (10 year) with FIT yearly 1978 Sigmoidoscopy 1978 Pneumococcal Vaccine: At-Ris k 5-64yrs (1 of 2 - PCV) 02/25/1984 Hepatitis B vaccine (0-59 yrs) (1) 1997 Tetanus/Diphtheria/Pertussis Vaccines (1 - Tdap) 1997 Lipid Screening 12/12/2023 12/11/2018 Covid-19 Vaccine (1 - 2023-2 5 season) 2024 Influenza (Flu) vaccine (1 o f 1 - Influenza standard series) 03/11/2024 Diabetes Screening (HgbA1C o r Glucose) 02/05/2027 02/06/2024, 12/02/2023, 01/13/2021, Additional history exists HIV screen Completed 08/11/2017, 12/09/2015 Procedures Procedure Name Priority Date/Time Associated Diagnosis Comments BASIC METABOLIC PANEL STAT 02/06/2024 12:00 AM EDT LIPID PANEL (REFLEX DIRECT LDL) Routine 12/11/2018 10:30 AM EDT Screening for lipoid disorders HIV SCREEN, 4TH GENERATION ([facility]/CGP/APD/NLH) Routine 08/11/2017 4:18 PM EST from Last 3 Months or Most Recently Relevant to Health Maintenance Results * Basic Metabolic Panel (non-fasting) (02/06/2024 12:00 AM EDT) Glucose 108 65 - 199 mg/dL [facility] Comment:Diabetes: >=200 mg/d L plus symptoms Blood Urea Nitrogen 12 10 - 20 mg/dL [facility] Creatinine 1.08 0.80 - 1.50 mg/dL [facility] Sodium 136 135 - 145 mmol/L [facility] Potassium 3.6 3.5 - 5.0 mmol/L [facility] Comment: Please note: ??Patients with WBC >100,000 may have falsely elevated Potassium levels. ??For accurate Potassium quantification in these patients send serum separator tube (gold top) for subsequent determinations. ??Contact the Clinical Chemistry Laboratory if there are any questions. Chloride 99 98 - 107 mmol/L [facility] Carbon Dioxide 27 22 - 31 mmol/L [facility] Anion Gap 10 5 - 15 mmol/L [facility] Calcium 9.8 8.5 - 10.5 mg/dL [facility] Est Glomerular Filtration Rate 86 >=60 mL/min/1. 73 m?? [facility] Comment: This patient's estimated GFR was [...] Lab Guille Hansen MD CHEMISTRY ORDERABLE S [facility] [place] [address] * Lipid Panel (12/11/2018 10:30 AM EDT) Cholesterol, Total 143 mg/dL Mohit I[facility]AGUIRRE [facility] Comment: Lower Risk: <200 mg/dL Average Risk: 200-239 mg/dL Higher Risk: >by=753 mg/dL Triglyceride 127 mg/dL [facility] Comment: Average Risk/Lower Risk: <150 mg/dL Borderline High Risk: 150-199 mg/dL High Risk: 200-499 mg/dL Very High Risk: >gb=077 mg/dL HDL Cholesterol 59 mg/dL [facility] Comment: Males: ?? Higher Risk: <40 mg/dL Females: ?? HIgher Risk: <50 mg/dL LDL Cholesterol 59 mg/dL [facility] Comment: Lowest Risk: <100 mg/dL Lower Risk: 100-129 mg/dL Borderline High Risk: 130-159 mg/dL High Risk: 160-189 mg/dL Very High Risk: >lk=907 mg/dL Cholesterol/HDL Ratio 2.4 ratio [facility] Lipid Interpretation See Note [facility] Comment: Lipid management should be guided by a patient? s ASCVD risk, goals and preferences. ACC/AHA Guidelines recommend high intensity statin if clinical ASCVD or LDL greater than or equal to 190 mg/dL. [email or web address] Adults aged 40-75 with LDL 70-189 mg/dL should have their 10 year ASCVD risk estimated with the ACC/AHA ASCVD risk lumber estimator http://tools.acc.org/XQVPY-Jbdr-Mujwiaaxw/ Statin should be discussed if risk greater than or equal to 7.5% in non-diabetics. With diabetes, moderate intensity statin is recommended if risk less than 7.5%, high intensity if risk greater than or equal to 7.5%. Annual lipid monitoring on statins is not necessary. Evaluate secondary causes of Triglycerides greater than 500 mg/dL or LDL greater than 190 mg/dL: See table 6 of ACC/AHA Guideline. Lifestyle modification is a critical component of ASCVD risk reduction. Blood specimen (specimen) 12/11/2018 10:30 AM EDT 12/11/2018 10:36 AM EDT Narrative Resulting Agency Comment Spec In Lab Laura Ho MD CHEMISTRY ORDERABLES [facility] [place] [place] [address] * HIV Screen, 4th Generation (08/11/2017 4:18 PM EST) HIV Ab/Ag Screen Negative Negative [facility] Comment: This 4th Generation HIV test screens for the presence of the HIV-1 p24 antigen as well as antibodies reactive against HIV-1 and HIV-2. A negative screen does not rule out an acute HIV infection. If acute HIV infection is suspected, testing should be repeated in 2 - 3 weeks or HIV nucleic acid testing performed. Blood specimen (specimen) Venous Draw / Unknown 08/11/2017 4:18 PM EST 08/11/2017 6:00 PM EST Narrative Resulting Agency Comment Spec In Lab Fitz Quach MD CHEMISTRY ORDERABLES [facility] [place] [place] [address] from Last 3 Months or Most Recently Relevant to Health Maintenance Advance Directives Documents on File Type Date Recorded Patient Storage Receipt Poster Expl anation Advance Directives and Livin g Will 01/13/2021 2:54 PM 01/12/2021 * Attempt Cardiopulmonary Resuscitation - Inpatient (Latest Code Status on File) Date Activated Date Inactivated Comments 01/11/2021 12:44 AM 01/13/2021 4:01 PM Question Answer Comments Code Status decision made by: Patient * Full Code Date Activated Date Inactivated Comments 12/09/2015 5:14 PM 12/11/2015 4:00 PM Question Answer Comments Does patient have capacity to make decision: Yes Care Teams Computer Game Programmer Relationship Specialty Start Date End Date Laura Ho MD [address] [place] [address] PCP - General Family Medicine 12/19/16
--- OUTSIDE RECORDS SUMMARY | 2024-06-21 15:30 | XMS_ITS | Encounter Summary ---
Author Organization [facility] Address [facility] [address] Care Team Providers Care Dog Catcher Name Role Phone Laura Ho MD Primary Care Provider [phone] Reason for Referral * Consultation (Routine) - Closed Specialty Diagnoses / Procedures Referred By Contac t Referred To Contact Orthopaedics Diagnoses Paget's disease of bone Procedures DR DONNA CROSS (was resident under Dr. Edgar) Laura Ho MD [address] [place] [address] Gorge Edgar MD [facility] [place] [address] Referral ID Status Reason Start Date Expiration Date V isits Requested Visits Authorized [id number] Closed Consult, Test & Treat PCP Updated and/or Approved 10/15/2021 10/15/2022 6 6 Encounter Details Date Type Department Care Team (Latest Contact Info) Description 10/15/2021 Transcribe Orders eDH Incoming Referrals [phone] Laura Ho MD [address] [place] [address] Paget's disease of bone Social History Tobacco Use Types Packs/Day Years [...] as of this encounter Plan of Treatment Scheduled Referrals Name Type Priority Associated Diagnoses Order Schedule Referral to Hematology and Oncology Outpatient Referral Routine Paget's disease of bone Ordered: 10/15/2021 documented as of this encounter Visit Diagnoses Diagnosis 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
--- OUTSIDE RECORDS SUMMARY | 2024-06-21 15:30 | XMS_ITS | Encounter Summary ---
Author Organization [facility] Address [facility] [place] [address] Care Team Providers Care Ecologist Name Role Phone Laura Ho MD Primary Care Provider [phone] Encounter Details Date Type Department Care Team (Latest Contact Info) Description 02/09/2024 Travel Social History Tobacco Use Types Packs/Day [...] on filedocumented in this encounter Care Teams Ecologist Relationship Specialty Start Date End Date Laura Ho MD [address] [place] [address] PCP - General Family Medicine 06/28/16 documented as of this encounter
--- OUTSIDE RECORDS SUMMARY | 2024-06-21 15:30 | XMS_ITS | Encounter Summary ---
Author Organization [facility] Address [facility] [place] [address] Care Team Providers Care Microarray Specialist Name Role Phone Laura Ho MD Primary Care Provider [phone] Encounter Details Date Type Department Care Team (Late st Contact Info) Description 12/02/2023 8:05 PM EDT Ancillary Procedure Radiology Library at [facility] [place] [phone] Social History Tobacco Use Types Packs/Day Years [...] Procedure Name Priority Date/Time Associated Diagnosis Comments REQUEST FOR 2ND READ CT NECK STAT 12/02/2023 8:01 PM EDT documented in this encounter Results * Request For 2nd Read CT Neck (12/02/2023 8:01 PM EDT) WORKSTATION ID [id number] [facility] Anatomical Region Laterality Modality Neck SO Impressions [...] who have questions please contact the health caregiver services home that requested your imaging first. ? Narrative 12/02/2023 8:53 PM EDT EXAMINATION: REQUEST FOR 2ND READ CT NECK CLINICAL HISTORY: 43 y.o. male with right sided neck absess; Sending Institution [facility]; Date of exam [id number]; I believe a [...] y.o. male with right sided neck absess; [facility]; Date of exam [id number]; I believe a [...] irregular rim-enhancing collection visible on the study [id number]. The appearance of this collection is nonspecific [...] patients who have questions please contactthe health caregiver services home that requested your imaging first. Yfn Silverman MD IMG OUTSIDE INTERP RETATION ORDERABLES documented in this encounter Visit Diagnoses Not on filedocumented in this encounter Care Teams Microarray Specialist Relationship Specialty Start Date End Date Laura Ho MD [address] [place] [address] PCP - General Family Medicine 06/28/16 documented as of this encounter
--- OUTSIDE RECORDS SUMMARY | 2024-06-21 15:30 | XMS_ITS | Encounter Summary ---
Author Organization [facility] Address [facility] [address] [place] [address] Care Team Providers Care Pill Coater Name Role Phone Laura Ho MD Primary Care Provider [phone] Encounter Details Date Type Department Care Team (Late st Contact Info) Description 01/14/2021 Telephone [place] [phone] Mary Braxton Social History Tobacco Use Types Packs/Day Years [...] encounter Miscellaneous Notes * Telephone Encounter - Mary Braxton - 01/15/2021 11:25 AM EDT Called pt again to try and schedule TH for neck abscess per Simran. LVM for pt to call back * Telephone Encounter - Mary Braxton - 01/14/2021 10:25 AM EDT Called pt per note received from Simran to schedule a HCK Hi, can we please make him an appointment for a hospital check Tuesday or this coming Tuesday by telehealth with an associate provider ? Thanks ! CC Neck abscess Holding time on 01/16 with SB at 8 am could also be 11:30. LVM for pt to call back documented in this encounter Plan of Treatment Not on file documented as of this encounter Visit Diagnoses Not on filedocumented in this encounter Care Teams Pill Coater Relationship Specialty Start Date End Date Laura Ho MD [address] [place] [address] PCP - General Family Medicine 06/28/16 documented as of this encounter
--- OUTSIDE RECORDS SUMMARY | 2024-06-21 15:30 | XMS_ITS | Encounter Summary ---
Author Organization [facility] Address [facility] [place] [address] Care Team Providers Care Sewing Machine Operator Plastic Zipper Name Role Phone Laura Ho MD Primary Care Provider [phone] Encounter Details Date Type Department Care Team (Late st Contact Info) Description 02/09/2024 3:00 PM EDT Office Visit [place] [address] Brayan Bess PA [facility] [place] [address] Neck abscess Social History Tobacco Use Types Packs/Day Years Used Date Smoking Tobacco: Every Day Cigarettes Smokeless Tobacco: Never Alcohol Use Standard Drinks/Week Comments Yes 6 (1 standard drink = 0.6 oz pur e alcohol) [facility] Inpatient Questions Answer Date Recorded Does Anyone [...] Sign Reading Time Taken Comments Blood Pressure - - Pulse - - Temperature - - Respiratory Rate - - Oxygen Saturation - - Inhaled Oxygen Concentration - - Weight 91.2 kg (201 lb) 02/09/2024 3:10 PM EDT Height 185.4 cm (6' 1) 02/09/2024 3:10 PM EDT Body Mass Index 26.52 02/09/2024 3:10 PM EDT documented in this encounter Progress Notes * Brayan Bess PA - 02/09/2024 3:00 PM EDT [facility] [place] FOLLOW UP NOTE Harvey Espinosa is a 43 y.o. male followed for: Neck abscess. He has a history bipolar disorder, PTSD, schizoaffective disorder, prior ADD, prior opioid dependence, and two prior episodes of right neck abscess, and who presented on 02/04 for recurrence of his neck abscess. He underwent bedside I&D, and a bob drain was placed. He was placed on Augmentin, and returns today for drain removal and reassessment. New issues since last visit: Feels it is doing better. Still getting a little drainage from the drain. Swelling has gone down a lot. No fevers. No chills. Swallowing normally. Breathing well. No changes in voice. No bleeding. 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0 standard drinks of alcohol Types: 6 Cans of beer per week MEDICATIONS Current Outpatient Medications on File Prior to Visit Medication Sig Dispense Refill amoxicillin-clavulanate (Augmentin) 875-125 mg tablet Take 1 tablet by mouth 2 times daily for 10 days. 20 tablet 0 prazosin (Minipress) 2 mg [...] Tablet Take 125 mg by mouth nightly. sulfamethoxazole-trimethoprim DS (Bactrim DS) 800-160 mg tablet Take 2 tablets by mouth 2 times daily for 10 days. (Patient not taking: Reported on 02/09/2024) 40 tablet 0 No current facility-administered medications on file prior to visit. ALLERGIES Allergies Allergen Reactions Iodinated Contrast Media Hives ROS 8 point Review of Systems was normal except for pertinent positives and negatives included in the History of Present Illness. PHYSICAL EXAMINATION Physical Examination: VITALS - Height 185.4 cm (6' 1), weight 91.2 kg (201 lb). GENERAL - Well dressed and well nourished. - Breathing comfortably without stridor. - No acute distress. FACE - Full and symmetric facial movement. - No dysmorphic facial features. EYES - Periocular structures and conjunctiva healthy without lesions. - Pupils are equal, round. - Extraocular movement is full and intact. - No evidence of nystagmus. MOUTH - Lips and gingiva pink, moist, without lesions. - Gums/dentition healthy. - Tongue and floor of mouth without lesions or masses. - Hard palate without lesions. PHARYNX - Soft palate without lesions. - Uvula is midline. - Oropharynx symmetric. NECK - Right neck surgical site with bob drain in place, tethered with prolene suture; minimal drainage, without nathen purulence. Suture removed with forceps and suture scissors. - Thyroid gland without masses or asymmetry. - Trachea midline without deviation. NEURO - Cranial nerves II-XII grossly intact and symmetric. - Responds appropriately to questions. PSYCHE - Normal mood and affect. PROCEDURES REVIEW OF IMAGES/STUDIES ASSESSMENT/RECOMMENDATIONS - Recurrent right neck abscess, with improvement in drainage, and no evidence of infection appreciated today. Bob drain removed, and dressing applied. Discussed daily dressing changes until incision is fully closed, and supplies given. Discussed continuing him on antibiotics for 4 additional days beyond his current prescription. Discussed keeping the site dry until closure. Discussed his calling to be seen again for any increasing swelling, increasing pain, fevers, redness, or any other concerning symptom. - The patient expressed understanding of these points and agreement with the plan, and all questions that were asked were answered to the patient's satisfaction. Plan: > Surgical site care as above. > Patient should call if their symptoms worsen or fail to improve, if new concerning symptoms arise, or if they have any questions or concerns regarding their treatment. I appreciate the opportunity to be involved in Mr. Espinosa's care. Brayan Bess PA-C [place], [place] [address] Office 02/09/2024 documented in this encounter Plan of Treatment Not on file documented as of this encounter Visit Diagnoses Diagnosis Neck abscess Cellulitis and abscess of neck documented in this encounter Care Teams Sewing Machine Operator Plastic Zipper Relationship Specialty Start Date End Date Laura Ho MD [address] [place] [address] PCP - General Family Medicine 06/28/16 documented as of this encounter
--- OUTSIDE RECORDS SUMMARY | 2024-06-21 15:30 | XMS_ITS | Encounter Summary ---
Author Organization [facility] Address [facility] [address] [place] [address] Care Team Providers Care Sales Analyst Name Role Phone Laura Ho MD Primary Care Provider [phone] Encounter Details Date Type Department Care Team (Latest Contact Info) Description 01/16/2021 8:00 AM EDT TH Visit (TeleHealth) [place] [address] Stephanie Porter APRN [facility] [place] [address] Postoperative examination Social History Tobacco Use Types Packs/Day Years Used Date Smoking Tobacco: Every Day Cigarettes Smokeless Tobacco: Never Alcohol Use Standard Drinks/Week Comments Yes 6 (1 standard drink = 0.6 oz pur e alcohol) Sex and Gender Information Value Date Recorded Sex Assigned at Not on file Gender Identity Not on file Sexual Orientation Not on file documented as of this encounter Progress Notes * Stephanie Porter APRN - 01/16/2021 8:00 AM EDT [facility] [place] TELEPHONE VISIT Harvey Espinosa is a 40 y.o. male with a hx of right neck hematoma with I &D abscess performed on 01/11/2021 with . This is a telephone visit for post hospital stay. SUBJECTIVE Harvey is a 40 year old with the above history having a telephone visit for a postoperative f/u. He is doing well. One drain was taken out before he left and he states he was told to take the other drain out after he went home (which is not common practice). Both drains are out. HE has had minimaldrainage from the sites. No pain. No swelling. No fevers. He is still on an oral antibiotic. He is no longer using any IV drugs and remains on Suboxone. REVIEW OF IMAGES/OTHER STUDIES n/a DECISION MAKING/PLAN 1) Postoperative Telehealth visit with hx of hematoma with I & D performed on 01/11/2021; drains are out and doing well. Plan: monitor for any increase in infection. Return to ENT as needed. Encouraged to stay clear of IV drug use. Patient verbally consents to this telephone visit and understands that this visit may be billed, similar to a clinic office visit. I provided care to the patient today via telephone call, 10 minutes telephone visit was spent in discussion with patient on above. I appreciate the opportunity to be involved in Mr. Espinosa's care. STEPHANIE PORTER APRN 01/16/2021 documented in this encounter Plan of Treatment Not on file documented as of this encounter Visit Diagnoses Diagnosis Postoperative examination Follow-up examination, following unspecified surgery documented in this encounter Care Teams Sales Analyst Relationship Specialty Start Date End Date Laura Ho MD [address] [place] [address] PCP - General Family Medicine 06/28/16 documented as of this encounter
--- OUTSIDE RECORDS SUMMARY | 2024-06-21 15:30 | XMS_ITS | Encounter Summary ---
[place] [address] Care Team Providers Care Jewel Hole Cornerer Name Role Phone Laura Ho MD Primary Care Provider [phone] Reason for Referral * Consultation (Routine) - Closed Specialty Diagnoses / Procedures Referred By Contblossom t Referred To Contact Urology Diagnoses Testicular pain, left TESTICULAR PAIN- can see adjunct instructor per MSG Laura Ho MD [address] [place] [address] [facility] [place] [address] Referral ID Status Reason Start Date Expiration Date V isits Requested Visits Authorized [id number] Closed Consult, Test & Treat PCP Updated and/or Approved 08/25/2022 08/25/2023 6 6 Encounter Details Date Type Department Care Team (Latest Contact Info) Description 08/25/2022 Transcribe Orders eD Incoming Referrals [phone] Laura Ho MD [address] [place] [address] Testicular pain, left Social History Tobacco Use Types Packs/Day Years [...] Scheduled Referrals Name Type Priority Associated Diagnoses Orde r Schedule Referral to Urology Outpatient Referral Routine Testicular pain, left Ordered: 08/25/2022 documented as of this encounter Visit Diagnoses Diagnosis Testicular pain, left Unspecified disorder of male genital organs documented in this encounter Care Teams Jewel Hole Cornerer Relationship Specialty Start Date End Date Laura Ho MD [address] [place] [address] PCP - General Family Medicine 06/28/16 documented as of this encounter
--- OUTSIDE RECORDS SUMMARY | 2024-06-21 15:30 | XMS_ITS | Encounter Summary ---
Author Organization [facility] [place] [address] Care Team Providers Care Manpower Development Specialist Manager Name Role Phone Laura Ho MD Primary Care Provider [phone] Encounter Details Date Type Department Care Team (Latest Contact Info) Description 12/02/2023 Travel Social History Tobacco Use Types Packs/Day [...] on filedocumented in this encounter Care Teams Manpower Development Specialist Manager Relationship Specialty Start Date End Date Laura Ho MD [address] [place] [address] PCP - General Family Medicine 06/28/16 documented as of this encounter
--- OUTSIDE RECORDS SUMMARY | 2024-06-21 15:30 | XMS_ITS | Encounter Summary ---
Author Organization [facility] Address [facility] [address] [place] [address] Care Team Providers Care Gsa Coordinator Name Role Phone Laura Ho MD Primary Care Provider [phone] Encounter Details Date Type Department Care Team (Late st Contact Info) Description 11/28/2023 7:35 PM EDT Ancillary Procedure Radiology Library at [facility] [place] [id number] Breonna Hebert MD [facility] [place] [address] Social History Tobacco Use Types Packs/Day Years [...] Priority Date/Time Associated Diagnosis Comments FILM LIBRARY - STORAGE ONLY CT NECK Routine 11/28/2023 7:32 PM EDT documented in this encounter Results * Film Library- Storage Only CT Neck (11/28/2023 7:32 PM EDT) Narrative ABDOUL DAVIS - 11/28/2023 7:32 PM EDT This exam is auto-finalizing. It's purpose is for storage only. Breonna Hebert MD G FILM LIBRARY ORD ERABLES [place], [place] documented in this encounter Visit Diagnoses Not on filedocumented in this encounter Care Teams Gsa Coordinator Relationship Specialty Start Date End Date Laura Ho MD [address] [place] [address] PCP - General Family Medicine 06/28/16 documented as of this encounter
[2024-06-21 15:31] LABS: Abs Immature Grans 0.02 10^3/uL (0.0-0.06); Absolute Basophil Count 0.11 10^3/uL (0.0-0.2); Absolute Eosinophil Count 0.42 10^3/uL (0.0-0.7); Absolute Lymphocyte Count 2.63 10^3/uL (1.2-3.4); Absolute Monocyte Count 0.85 10^3/uL (0.1-0.8); Absolute Neutrophil Count 3.08 10^3/uL (1.2-6.7); Basophils % 1.5 %; Eosinophils % 5.9 %; HCT 49.3 % (40.0-50.0); Immature Grans % 0.3 %; MCH 29.6 pg (27.0-33.0); MCHC 32.5 % (32.0-36.0); MCV 91 fL (80-95); MPV 9.7 fL (8.0-11.0); Neutrophils % 43.3 %; Platelet Count 198 10^3/uL (130-400); RDW 13.2 % (11.8-14.1); RDW-SD 44.5 fL; WBC 7.11 10^3/uL (4.4-10.8)
--- OUTSIDE RECORDS SUMMARY | 2024-06-21 15:31 | XMS_ITS | Encounter Summary ---
Author Organization [facility] Address [facility] [place] [address] [address] Care Team Providers Care Jig Fitter Name Role Phone Laura Ho MD Primary Care Provider [phone] Encounter Details Date Type Department Care Team (Latest Contact Info) Description 09/03/2020 10:49 AM EST - 09/03/2020 11:59 PM [facility] Hospital [place] [address] Jorge Luis Rios MD [facility] [place] [address] Nausea and vomiting, intractability of vomiting not specified, unspecified vomiting type; Upper abdominal pain Discharge Disposition: Home Social History Tobacco Use [...] on file documented as of this encounter Medications at Time of Discharge Medication Sig Dispensed Refills Start Date End Date acyclovir (ZOVIRAX) 200 mg Capsule as needed. [...] Tablet Take 125 mg by mouth nightly. busPIRone (Buspar) 5 mg Tablet TAKE 1 TABLET AT MIDDAY - TAKE ADDITIONAL DAILY NEEDED FOR INCREASED ANXIETY 08/09/2020 09/12/2020 prazosin (Minipress) 1 mg Capsule Take 4 mg by mouth nightly. 10/15/2020 ondansetron ODT (Zofran ODT) 4 mg Tablet, Rapid Dissolve Take 1-2 tablets by mouth every 8 hours as needed for Nausea. 20 tablet 1 08/05/2020 10/15/2020 documented as of this encounter Plan of Treatment Not on file documented as of this encounter Procedures Procedure Name Priority Date/Time Associated Diagnosis Comments US ABDOMEN LIMITED Routine 09/03/2020 11 :35 AM EST Nausea and vomiting, intractability of vomiting not specified, unspecified vomiting type Upper abdominal pain documented in this encounter Results * US Abdomen Limited (09/03/2020 11:35 AM EST) Anatomical Region Laterality Modality Abdomen Ultrasound 09/03/2020 11:3 3 AM EST Impressions 09/03/2020 12:06 PM EST 1. Normal hepatic size and contour without focal mass. Small, normal variant, geographic region of focal fatty infiltration adjacent to the falciform ligament. 2. Cholelithiasis without evidence of acute cholecystitis. 3. Upper normal size of common bile duct with no evidence of intrahepatic biliary ductal dilatation. I have personally reviewed the image(s) and the resident's interpretation and agree with the findings, Lorenzo Francis MD at 09/03/2020 11:57 AM Thank you for letting us participate in the care of this patient. For questions regarding this report, please contact the number below. Electronically signed by: Lorenzo Francis MD, [facility] ([phone]), at 09/03/2020 11:57 AM ? Lorenzo Francis, Staff Physician Electronically Signed Final Report ?? 09/03/2020 12:05 pm Narrative 09/03/2020 12:06 PM EST Abdominal ? (Signed Final 09/03/2020 12:05 pm) PATIENT INFO: ID #: ? [id number] ?: ??[birth year] (40 yrs)(M) Name: ? HARVEY RAMIREZ ?Visit Date: 09/03/2020 11:33 am PERFORMED BY: Performed By: ? Tahira Soliz RDMS Attending: ?Penny MURILLO, Lorenzo Morales Resident: ? Jesus Cowan MD Referred By: ?JORGE LUIS RIOS Location: ? [place] SERVICE(S) PROVIDED: UABDLIM - Abdominal Limited Survey Single ? 88974 Organ or Quadrant - [id number] INDICATIONS: assess gallbladder COMPARISON: Prior US: 01/18/18 ------ LIVER: ------ Right Lobe Length: ?? 17.0 ?? cm Echogenicity/Echotexture: ?? Normal Portal Veins: ?Hepatopetal Comment: ?No focal lesion seen. Fatty infiltration seen near ? the falciform ligament. GALLBLADDER: Cholelithiasis: ?Mobile gallstone Wall Thickness: ?3. mm Focal Tenderness: ?Negative sonographic Bess's sign BILIARY TRACT: Intrahepatic Ducts: ?? Normal Extrahepatic Ducts: ?? Normal Common Duct Size: ? 8.0 ? mm --------- PANCREAS: --------- Head: ?Normal ?Size: Tail: ?Poorly visualized due to ?Size: ?overlying bowel Body: ?Normal ?Size: RIGHT KIDNEY: Size (cm) ?L: ??12.8 Cortical Thickness: ?Normal Cortical Echogenicity: ?? Normal Hydronephrosis: ?No sonographic evidence Comment: ?Simple cyst seen in the inferior pole measuring 0.7 ? x 0.5 x 0.6cm. ------ AORTA: ------ Measurements (cm): Proximal ? AP: ?? 2.5 ---- IVC: ---- Normal in caliber where visualized. Procedure Note Lorenzo Francis MD - 09/03/2020 Abdominal (Signed Final 09/03/2020 12:05 pm) PATIENT INFO: ID #: [id number] : [birth year] (40 yrs)(M) Name: HARVEY RAMIREZ Visit Date: 09/03/2020 11:33 am PERFORMED BY: Performed By: Tahira Soliz RDMS Attending: Lorenzo Francis MD Resident: Jesus Cowan MD Referred By: JORGE LUIS RIOS Location: [place] SERVICE(S) PROVIDED: UABDLIM - Abdominal Limited Survey Single 69732 Organ or Quadrant - [id number] INDICATIONS: assess gallbladder COMPARISON: Prior US: 01/18/18 ------ LIVER: ------ Right Lobe Length: 17.0 cm Echogenicity/Echotexture: Normal Portal Veins: Hepatopetal Comment: No focal lesion seen. Fatty infiltration seen near the falciform ligament. GALLBLADDER: Cholelithiasis: Mobile gallstone Wall Thickness: 3. mm Focal Tenderness: Negative sonographic Bess's sign BILIARY TRACT: Intrahepatic Ducts: Normal Extrahepatic Ducts: Normal Common Duct Size: 8.0 mm --------- PANCREAS: --------- Head: Normal Size: Tail: Poorly visualized due to Size: overlying bowel Body: Normal Size: RIGHT KIDNEY: Size (cm) L: 12.8 Cortical Thickness: Normal Cortical Echogenicity: Normal Hydronephrosis: No sonographic evidence Comment: Simple cyst seen in the inferior pole measuring 0.7 x 0.5 x 0.6cm. ------ AORTA: ------ Measurements (cm): Proximal AP: 2.5 ---- IVC: ---- Normal in caliber where visualized. IMPRESSION 1. Normal hepatic size and contour without focal mass. Small, normal variant, geographic region of focal fatty infiltration adjacent to the falciform ligament. 2. Cholelithiasis without evidence of acute cholecystitis. 3. Upper normal size of common bile duct with no evidence of intrahepatic biliary ductal dilatation. I have personally reviewed the image(s) and the resident's interpretation and agree with the findings, Lorenzo Francis MD at 09/03/2020 11:57 AM Thank you for letting us participate in the care of this patient. For questions regarding this report, please contact the number below. Electronically signed by: Lorenzo Francis MD, [facility] ([phone]), at 09/03/2020 11:57 AM Lorenzo Francis, Staff Physician Electronically Signed Final Report 09/03/2020 12:05 pm Jorge Luis Rios MD IMG US GEN ORDERABL ES documented in this encounter Visit Diagnoses Diagnosis Nausea and vomiting, intractability of vomiting not specified, unspecified vomiting type Upper abdominal pain Abdominal pain, other specified site documented in this encounter Care Teams Jig Fitter Relationship Specialty Start Date End Date Laura Ho MD [address] [place] [address] PCP - General Family Medicine 06/28/16 documented as of this encounter
--- OUTSIDE RECORDS SUMMARY | 2024-06-21 15:31 | XMS_ITS | Encounter Summary ---
Author Organization [facility] Address [facility] [place] [address] Care Team Providers Care Light Armored Vehicle Officer Name Role Phone Laura Ho MD Primary Care Provider [phone] Reason for Visit * Auth/Cert Specialty Diagnoses / Procedures Referred By Govind t Referred To Contact Diagnoses BILARY COLIC Procedures PRO LAP, CHOLECYSTECTOMY/GRAPH LAPAROSCOPIC CHOLECYSTECTOMY WITH CHOLANGIOGRAM (WRVU 11.47) Referral ID Status Reason Start Date Expiration Date Visits Re quested Visits Authorized [id number] 1 1 Encounter Details Date Type Department Care Team (Late st Contact Info) Description 09/15/2020 11:20 AM EST Anesthesia Event [place] [id number] Rajesh Millan MD [facility] DR [place] [address] Anesthesia Record Procedure Summary Procedure Name Responsible Anesthesiologist Anesthesia Start Time Anesthesia Stop Time LAPAROSCOPIC CHOLECYSTECTOMY WITH CHOLANGIOGRAM (WRVU 11.47) (Abdomen) Rajesh Millan MD 09/15/20 1120 09/15/20 1315 Events Date Time Event Comment 09/15/2020 1059 1120 AN Verify 1120 Start 1125 An Start Data 1131 An Induction 1134 An Intubation 1137 Anesthesia Ready 1302 Extubation/LMA Out 1304 an stop data 1315 Recovery or ICU Handoff Lisa ent care was transferred to the destination unit staff after review of the patient's medical history, current anesthetic/surgical status and plan, according to the Provider Handoff Checklist. 1315 Stop Meds Name Total Midazolam 2 mg IV Lidocaine 100 mg Propofol 200 mg Rocuronium 100 mg PHENYLephrine 160 mcg Ondansetron 8 mg Dexamethasone 4 mg clindamycin (Cleocin) 900 mg in dextrose 5% 50 mL infusion 900 mg Dexmedetomidine 16 mcg HYDROmorphone 1 mg Propofol INF 315.61 mg Sugammadex 200 mg lactated ringers infusion 1,400 mL * Agents Name O2 Air N2O Sevoflurane (et) * Blood No blood administrations on file. Lines, Drains, and Airways Type Details Placement Removal ETT ETT Type: Cuffed, Or al; ETT Size: 7.5 mm; Mac Blade: 4; Notes: Asleep, Pre-O2; Attempts: 1; Laryngoscopy Grade: 1; ETT Placement Verified By: Capnometry, Visual; Secured at Teeth: 24 cm; Inserted by: Alma; Removal Date: 09/15/20; Removal Time: 1302 09/15/20 1134 by Tim Marquez, BINMAN 09/15/20 1302 by Tim Marquez, BINMAN Incision 09/15/20; 1150; abdo men; laparoscopic punctures (specify) (x 3 sites); 01/11/21; 0152 09/15/20 1150 by Michaelle Deshpande RN 01/11/21 0152 by Violeta Singer RN documented in this encounter Social History Tobacco Use Types Packs/Day Years Used Date Smoking Tobacco: Every Day Cigarettes Smokeless Tobacco: Never Alcohol Use Standard Drinks/Week Comments Yes 6 (1 standard drink = 0.6 oz pur e alcohol) Sex and Gender Information Value Date Recorded Sex Assigned at Not on file Gender Identity Not on file Sexual Orientation Not on file documented as of this encounter OR Notes * Anesthesia Postprocedure Evaluation - Rajesh Millan MD - 09/15/2020 1:54 PM EST Department of Anesthesiology Post-procedure Note Patient: Harvey Espinosa Procedure Summary Date: 09/15/20 Room / Location: [address] MAIN OR Anesthesia Start: 1120 Anesthesia Stop: 131 Procedure: LAPAROSCOPIC CHOLECYSTECTOMY WITH CHOLANGIOGRAM (WRVU 11.47) (N/A Abdomen) Diagnosis: (BILARY COLIC) Surgeons: Jorge Luis Rios MD Responsible Provider: Rajesh Millan MD Anesthesia Type: general ASA Status: 2 All Anesthesia Providers: Anesthesiologist: Rajesh Millan MD BINMAN: Tim Marquez CRNA Vitals Value Taken Time BP 153/95 09/15/20 1315 Temp Pulse 59 09/15/20 1315 Resp 18 09/15/20 1315 SpO2 100 % 09/15/20 1315 Pain Level Patient Location: PACU/[facility] Level of Consciousness: Awake and Alert Pain Management: Satisfactory Analgesia PONV: Ongoing PONV/Being Treated Cardiovascular Status: At Baseline Respiratory Status: At Baseline Postoperative Fluid Status: Intravascular EUvolemia Possible Anesthetic Complications: NONE apparent at time of evaluation Final Primary Anesthesia Type: General (The anesthetic type performed was the same as planned.) Comments: * Anesthesia Preprocedure Evaluation - Rajesh Millan MD - 09/14/2020 7:51 AM EST Pre-Anesthesia Evaluation for: Harvey Espinosa a 40 y.o. male. Procedure(s): LAPAROSCOPIC CHOLECYSTECTOM[facility]ANGIOGRAM [facility] Patient Active Problem List Diagnosis ??? Smokes ??? Bipolar disorder ??? History of hepatitis C ??? PTSD (post-traumatic stress disorder) ??? Schizoaffective disorder ??? Chronic constipation ??? ADD (attention deficit disorder) ??? Opioid dependence on agonist therapy Per PDMP Sep 09, 2020: Suboxone 8-2, #2 films qd prescribed by Santos Ortiz MD. ??? Paget's bone disease Past Medical History: Diagnosis Date ??? Bipolar 1 disorder ??? Cellulitis of hand 12/09/2015 ??? Injury, superficial, hand with infection 12/10/2015 No past surgical history on file. Social History Tobacco Use ??? Smoking status: Current Every Day Smoker Types: Cigarettes ??? Smokeless tobacco: Never Used Substance Use Topics ??? Alcohol use: Yes Alcohol/week: 6.0 standard drinks Types: 6 Cans of beer per week Social History Substance and Sexual Activity Drug Use Not Currently ??? Types: IV Allergies Allergen Reactions ??? Pcn [Penicillins] Medications: MAR and/or home medications have been reviewed. Physical Exam: No data found. There is no height or weight on file to calculate BMI. Airway Assessment: Mallampati: II TM distance: >3 FB Neck ROM: full Cardiovascular Assessment: system normal Pulmonary Assessment: pulmonary exam normal Dental Assessment: - normal exam Misc Assessment: IV access: Peripheral line Anesthesia Plan: ASA 2 general, with a(n) intravenous induction Mr Espinosa is a 40 year-old man who biliary colic who presents for lap CCY. PMH: Opioid dependence/On suboxone, Hep C, Paget's disease, Tobacco abuse, Schizoaffective disorder, PTSD, ADD, Bipolar Past anesthetic Hx: No Allergy to PCN (unspecified) Meds: Clonidine, Buspirone, Seroquel, Toxey, Lamictal, Suboxone (took 09/15), Prazosin, Fosamax, Zofran, Acyclovir NPO: OK Plan [place] - Other Informed Consent: Anesthetic plan and risks discussed with patient. Plan discussed with BINMAN. PAT Clinic Note documented in this encounter Miscellaneous Notes * Addendum Note - Rajesh Millan MD - 09/15/2020 3:25 PM EST Addendum created 09/15/20 1525 by Rajesh Millan MD Order list changed documented in this encounter Plan of Treatment Not on file documented as of this encounter Visit Diagnoses Not on filedocumented in this encounter Administered Medications Inactive Administered Medications - up to 3 most recent administrations Medication Order MAR Action Action Date Dose Rate Site clindamycin (Cleocin) 900 mg in dextrose 5% 50 mL infusion 900 mg, Intravenous, LATH TIER TO O.R., 1 dose, On Tue09/15/20 at 1115, Administer over 30 Minutes, Indication for (Active or Suspected): Prophylaxis Given 09/15/2020 11:40 AM EST 900 mg dexamethasone (Decadron) injection Intravenous, PRN, Starting on Tue09/15/20 at 1141, Until Tue09/15/20 at 1323, Anesthesia Intra-op, Routine Given 09/15/2020 11:41 AM EST 4 mg dexmedetomidine (Precedex) (4 mcg/mL) bolus injection (Anesthsia) Intravenous, PRN, Starting on Tue09/15/20 at 1130, Until Tue09/15/20 at 1323, Anesthesia Intra-op, Routine Given 09/15/2020 11:51 AM EST 8 mcg Given 09/15/2020 11:30 AM EST 8 mcg HYDROmorphone (Dilaudid) (2 mg/mL) multi-dose injection solution Intravenous, PRN, Starting on Tue09/15/20 at 1131, Until Tue09/15/20 at 1323, Anesthesia Intra-op, Routine Given 09/15/2020 11:31 AM EST 1 mg lactated ringers infusion 1,000 mL, at 100 mL/hr, Intravenous, CONTINUOUS, Starting on Tue09/15/20 at 1000, Until Tue09/15/20 at 1713, Day of Surgery (Day of Procedure) New Bag 09/15/2020 11:00 AM EST lidocaine (pf) (Xylocaine) (20 mg/mL) 2% injection syringe Intravenous, PRN, Starting on Tue09/15/20 at 1130, Until Tue09/15/20 at 1323, Anesthesia Intra-op, Routine Given 09/15/2020 11:30 AM EST 100 mg midazolam (pf) (Versed) (1 mg/mL) multi-dose injection Intravenous, PRN, Starting on Tue09/15/20 at 1120, Until Tue09/15/20 at 1323, Anesthesia Intra-op, Routine Given 09/15/2020 11:20 AM EST 2 mg ondansetron (pf) (Zofran) (2 mg/mL) injection Intravenous, PRN, Starting on Tue09/15/20 at 1141, Until Tue09/15/20 at 1323, Anesthesia Intra-op, Routine Given 09/15/2020 12:52 PM EST 4 mg Given 09/15/2020 11:41 AM EST 4 mg PHENYLephrine in NS (PF) (GERONIMO-SYNEPHRINE) 0.8 mg/10 mL (80 mcg/mL) multi-dose injection Syrg Intravenous, PRN, Starting on Tue09/15/20 at 1206, Until Tue09/15/20 at 1323, Anesthesia Intra-op, Routine Given 09/15/2020 12:06 PM EST 160 mcg propofoL (Diprivan) 10 mg/mL bolus injection (Anesthesia) Intravenous, PRN, Starting on Tue09/15/20 at 1131, Until Tue09/15/20 at 1323, Anesthesia Intra-op Given 09/15/2020 11:31 AM EST 200 mg propofoL (Diprivan) infusion Intravenous, CONTINUOUS PRN, Starting on Tue09/15/20 at 1140, Until Tue09/15/20 at 1323, Anesthesia Intra-op, Routine New Bag 09/15/2020 11:40 AM EST 50 mcg/kg/min 25.59 mL/hr rocuronium (Zemuron) (10 mg/mL) multi-dose injection Intravenous, PRN, Starting on Tue09/15/20 at 1132, Until Tue09/15/20 at 1323, Anesthesia Intra-op, Routine Given 09/15/2020 12:19 PM EST 30 mg Given 09/15/2020 11:32 AM EST 70 mg sugammadex (Bridion) 100 mg/mL injection Intravenous, PRN, Starting on Tue09/15/20 at 1258, Until Tue09/15/20 at 1323, Anesthesia Intra-op, Routine Given 09/15/2020 12:58 PM EST 200 mg documented in this encounter Care Teams Light Armored Vehicle Officer Relationship Specialty Start Date End Date Laura Ho MD [address] [place] [address] PCP - General Family Medicine 06/28/16 documented as of this encounter
--- OUTSIDE RECORDS SUMMARY | 2024-06-21 15:31 | XMS_ITS | Encounter Summary ---
Author Organization [facility] Address [facility] [place] [address] Care Team Providers Care Irrigation Technician Name Role Phone Laura Ho MD Primary Care Provider [phone] Reason for Visit * Reason Comments Knee Pain left knee bone lesio n * Consultation (Routine) - Closed Specialty Diagnoses / Procedures Referred By Contac t Referred To Contact Orthopaedics Diagnoses LEFT KNEE PAIN Mark Perea MD [address] [place] [id number] Digna Das MD [facility] [place] [address] Referral ID Status Reason Start Date Expiration Date V isits Requested Visits Authorized [id number] Closed Consult, Test & Treat Connection [facility] PCP Updated and/or Approved 08/23/2019 08/22/2020 1 1 Encounter Details Date Type Department Care Team (Late st Contact Info) Description 09/25/2019 3:10 PM EDT Office [place] [address] Digna Das MD [facility] [place] [address] Paget's bone disease Social History Tobacco Use Types Packs/Day Years [...] Sign Reading Time Taken Comments Blood Pressure 125/84 09/25/2019 3:21 PM EDT Pulse 74 09/25/2019 3:21 PM EDT Temperature - - Respiratory Rate - - Oxygen Saturation - - Inhaled Oxygen Concentration - - Weight 98.7 kg (217 lb 9.6 oz) 09/25/2019 3:21 P M EDT actual Height 185.4 cm (6' 1) 09/25/2019 3:21 PM EDT Body Mass Index 28.71 09/25/2019 3:21 PM EDT documented in this encounter Progress Notes * Sariah Valdez MD - 09/25/2019 3:10 PM EDT Images from the original note were not included. Orthopaedic Oncology Attending Outpatient Consultation Note ?? [facility] [place] [address] FAX: [facility] Newsletter This is a consultation for patient Harvey Espinosa at the request of Dr. Perea. Reason for Consultation: lesion of the left lower extremity at the femur History of Present Condition: Harvey Espinosa is a pleasant 39 y.o. male who visits the OrthopaedicOncology clinic today. This lesion was discovered incidentally on MRI for his long-standing knee pain. He has had issues with swelling of his knee for several years and actually had an arthroscopy performed a long time ago after an injury during high school. At that time, he reports he was told that he had a cartilage injury and meniscal injury. He has had no other surgeries about that knee. He notes some worsening of his symptoms in the last several months and intermittently has had to stay off of it. He has more pain with stairs and activity but he also has throbbing at rest. He uses ice and elevation for the pain. He also uses marijuana for the pain. He is currently taking Suboxone. He is taken some Tylenol and ibuprofen intermittently with minimal effect. He notes he has had some occasional night sweats once or twice a week. He has been followed by Dr. More for his knee previous to this encounter. Pertinent negatives: no weight loss, no fevers or chills The intake form for Harvey Espinosa was completed by him or his accompanying adult and scanned intothe medical record. This form was reviewed in its entirety, please refer to it. Some of the relevant features are included here. Past Medical History: Active Ambulatory Problems Diagnosis Date Noted ??? Cellulitis of hand 12/09/2015 ??? Injury, superficial, hand with infection 12/10/2015 Resolved Ambulatory Problems Diagnosis Date Noted ??? No Resolved Ambulatory Problems Past Medical History: Diagnosis Date ??? Bipolar 1 disorder Past Surgical History History reviewed. No pertinent surgical history. Social History - Relationship status - he is with a partner Employment status - he is currently not working Social History Tobacco Use Smoking Status Current Every Day Smoker ??? Types: Cigarettes Smokeless Tobacco Never Used Social History Substance and Sexual Activity Alcohol Use Yes ??? Alcohol/week: 6.0 standard drinks ??? Types: 6 Cans of beer per week Family History Family History Problem Relation Age of Onset ??? Alcohol Use Disorder Mother ??? Heart Disease Mother Review of Systems: In addition to the findings in the past medial history and history of present illness, review of 14organ systems was otherwise negative. Physical Examination: Constitutional: BP Readings from Last 1 Encounters: 09/25/19 125/84 Pulse Readings from Last 1 Encounters: 09/25/19 74 Height: 185.4 cm (6' 1) Weight: 98.7 kg (217 lb 9.6 oz)(actual) 185.4 cm (6' 1) Weight: 98.7 kg (217 lb 9.6 oz)(actual) Body mass index is 28.71 kg/m??. Neurological/Psychiatric - he is alert and oriented to person, place, time, and situation. he is inno apparent distress. his affect was appropriate. his mood was positive. Sensation in the bilateral lower extremities showed normal sensation to light and dull touch in alldermatomal distributions. Cardiovascular: Peripheral pulses were 2+ (normal) for the anterior and posterior tibial arteries bilaterally. Capillary refill was <2 second in all the distal digits. There was no distal edema. Integumentary - in general his skin showed only age-appropriate findings. The skin overlying the lesion demonstrated no abnormalities. Musculoskeletal examination Examination of the left knee reveals mild prepatellar swelling. There is tenderness to palpation along the medial and lateral joint lines. There is also some tenderness to palpation along the patellar insertion at the quadriceps. He has pain with manipulation of the patella, patellar grind. No instability appreciated with anterior or posterior drawer, varus or valgus stress. Negative Lockman. 5 out of 5 strength in knee flexion and extension. Distal motor or sensory exam otherwise within normallimits. Imaging Studies personally seen and interpreted by me: X-rays and MRI were reviewed with the patient. The imaging demonstrates significant degenerative changes including tricompartmental arthritis, fraying of the meniscus, and cartilage defects. With regard to the distal femur, there are signal changes in the bone most consistent with Paget's disease. Laboratory Studies: Lab Results Component Value Date WBC 9.3 12/11/2018 HGB 15.4 12/11/2018 HCT 47.5 12/11/2018 PLATELET 302 12/11/2018 CREATININE 1.11 12/11/2018 BUN 9 (L) 12/11/2018 NA 137 12/11/2018 K 4.1 12/11/2018 CRP 39.6 12/09/2015 SEDRATE 11 12/09/2015 CrCl cannot be calculated (Patient's most recent lab result is older than the maximum 30 days allowed.). Impression & Plan: Harvey Espinosa is a pleasant 39 y.o. 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 We discussed and reviewed that he certainly has multiple pain generators with regard to his knee and that the Paget's may or may not contribute to hisconstellation of symptoms; however, a bisphosphonate may be a reasonable option to trial to see if it helps with his pain. We advised he reach out to his primary care provider to discuss beginning this medication especially in the setting of his other medications. Additionally, surveillance of the left distal femur is likely warranted and he should obtain x-rays at 3 months, 6 months, and 1 year.We would be happy to review these images remotely or obtain them here at his discretion; however, since he lives quite a ways away it would be reasonable for these to be obtained closer to home. Harvey Espinosa received teaching today that included the differential diagnosis, natural history, and treatment options for the lesion that initiated this consultation, he demonstrated excellent understanding of the information conveyed. At today???s visit, Harvey Espinosa was accompanied by his spouse. I answered all his questions to the best my ability, he demonstrated good comprehension of the answers, he will call with questions, concerns, or if he experiences any new symptoms or findings. Orthopaedic Oncology Attending Note: This patient was seen in consultation today at the request of Dr. Perea. I have seen the patient and reviewed the resident's above history and I agree with the details as written. The assessment and plan were formulated in discussion with me and I agree with them as documented. I had a lengthy discussion with Harvey about his imaging studies. It certainly appears that he hasa component of Paget's disease in his femur. Compounding this, he also has a long history of athletic injuries dating back to his high school years. It is therefore somewhat difficult to determine what degenerative changes in his knee are due to prior injury versus what are due to potential ramifications of Paget's disease. Either way, he does not have anything that appears to be obvious neoplastic in his imaging. I did have his images reviewed by 1 of our musculoskeletal radiologist here at [facility] and they confirmed the appearance of Paget's. Harvey jorgensen lives quite a distance away. Is a 4-5 Hour round trip for him to be here. For this reason, I think that follow-up closer to home is reasonable. I would recommend repeat radiographs at increased intervals of 3 6 to 12 months. I would also recommend seeing his primary care physician for consideration for bisphosphonate therapy. Certainly bisphosphonates have risks associatedwith them, however, these are generally low, and in the setting of the ability to arrest the osteolytic phase of Paget's disease, the benefits likely outweigh the risks. I am happy to see him back at any point in time. Again, the follow-up closer to home with repeat imaging would be purely due to his travel duration. However, they prefer to see me here in clinic, I am happy to see them back at any point in time. I also offer that I am happy to review his repeat imaging, the distance to be sent here with attention to my office. I answered all his questions to the best my ability, he demonstrated good comprehension of the answers, he will call with questions, concerns, or if he experiences any new symptoms or findings. 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
--- OUTSIDE RECORDS SUMMARY | 2024-06-21 15:31 | XMS_ITS | Encounter Summary ---
Author Organization [facility] Address [facility] [place] [address] Care Team Providers Care Drywall Carrier Name Role Phone Laura Ho MD Primary Care Provider [phone] Reason for Visit * Reason Comments Medication Refill Encounter Details Date Type Department Care Team (Late st Contact Info) Description 09/19/2020 Ref[place] [address] Harvey Roblero, PA [facility] DR EMERGENCY [place] [address] Social History Tobacco Use Types Packs/Day Years [...] on filedocumented in this encounter Care Teams Drywall Carrier Relationship Specialty Start Date End Date Laura Ho MD [address] [place] [address] PCP - General Family Medicine 06/28/16 documented as of this encounter
--- OUTSIDE RECORDS SUMMARY | 2024-06-21 15:31 | XMS_ITS | Encounter Summary ---
Author Organization Formerly [facility] Address [facility] [place] [place] [address] Care Team Providers Care Gasoline Attendant Name Role Phone Laura Ho MD Primary Care Provider [phone] Reason for Visit * Reason Comments Abscess right neck Head Injury 4 days ago * Auth/Cert Specialty Diagnoses / Procedures Referred By Govind t Referred To Contact Diagnoses Neck abscess Procedures ER IPI Admit Referral ID Status Reason Start Date Expiration Date Visits Re quested Visits Authorized [id number] 1 1 Encounter Details Date Type Department Care Team (Latest Contact Info) Description 01/10/2021 2:41 PM EDT - 01/13/2021 1:51 PM EDT Hospital Encounter 3 [place] [id number] Bee Malone MD [facility] [place] [address] Rusty Gong MD [facility] [place] [address] Neck abscess Discharge Disposition: Home Social History [...] Sign Reading Time Taken Comments Blood Pressure 120/68 01/13/2021 12:30 PM EDT Pulse 58 01/12/2021 1:13 AM EDT Temperature 36.6 ??C (97.9 ??F) 01/13/2021 1 2:30 PM EDT Respiratory Rate 15 01/13/2021 12:3 0 PM EDT Oxygen Saturation 96% 01/13/2021 12: 30 PM EDT Inhaled Oxygen Concentration - - Weight 81.6 kg (179 lb 14.4 oz) 01/10/2021 2:38 PM EDT Height 188 cm (6' 2) 01/10/2021 2:38 PM EDT Body Mass Index 23.1 01/10/2021 2:38 PM EDT documented in this encounter Discharge Summaries * Simran Pineda MD - 01/13/2021 12:54 PM EDT OTOLARYNGOLOGY - HEAD & NECK SURGERY DISCHARGE SUMMARY General Info Patient Name: Harvey Espinosa Patient Age: 40 y.o. Birthdate: 1980 Admit date: 01/10/2021 Discharge date: 01/13/21 Attending Physician: Rusty Gong MD Admission Info Diagnoses: Neck abscess Operations/Major Procedures: Procedure(s) (LRB): I & D DEEP ABSCESS OR HEMATOMA, NECK (WRVU 3.98) (Right) History of Presentation: The below history was copied from Dr. Gong Harvey Espinosa is a 40 y.o. male with a history of IV drug use who has reportedly been clean for the past 7 years. His past medical history is also significant for bipolar disorder, PTSD, and Paget's disease. He is an active 2 pack a day smoker and drinks two 24 ounce beers daily and is on chronicSuboxone. He denies any history of alcohol withdrawal. He reports that a week ago he relapsed on injection practices in which he injects his nonsterile water into his right neck. He began having symptoms 6 days ago and has experienced a progressive pain and swelling of the right neck. He endorses some a diet aphasia, but denies any difficulty breathing, positional dyspnea, or voice changes. He does have pain when looking to the right. He does endorse fevers and chills. He has a history of hepatitis C for which she has had curative treatment. He denies any history of hepatitis B or HIV and hislast documented testing in our system was 2018. He does endorse prior abscesses that have required drainage, including a MRSA infection. ?? Reason for Admission: Incision and drainage of right neck abscess Hospital Course: The patient tolerated the above procedure well and was admitted post-operatively for routine care. His hospital course was uncomplicated and he was deemed medically stable for discharge home at 3 Days Post-Op. Prior to discharge his pain was controlled on oral pain meds and he was tolerating a Regular diet. Patient to remove last sera drain on 01/14 at home, instructions and care discussed with Mr. Espinosa. Physical Exam on Discharge: General: NAD, non-ill appearing, lying comfortably in bed Face: Symmetric without dysmorphic features Eyes: EOMI, conjunctiva healthy Ears: Auricles symmetric, no lesions Nose: Patent nares, grossly normal appearance Oral Cavity/Pharynx: Mucosa is pink Neck: Right neck with sera drains x1 sutured to the skin with serosanguinous drainage and small amounts of purulence. Right neck with some residual swelling and induration of the skin Chest: Unlabored respirations Neuro: Alert & oriented, moving extremities x 4 Lab Data: Recent Labs 01/13/21 1038 01/13/21 0345 01/12/21 0632 01/10/21 1536 WBC -- 6.6 6.7 15.4* HGB -- 12.9* 13.2* 13.2* HCT -- 40.7 42.6 41.2 PLATELET -- 409* 413* 387* NA 137 -- -- 138 K 4.1 -- -- 4.0 CL 102 -- -- 100 CO2 29 -- -- 24 BUN 9* -- -- 8* CREATININE 1.05 -- -- 0.93 GLUCOSE 80 -- -- 95 CALCIUM 10.2 -- -- 10.1 Imaging and Other Studies: CT Neck Soft Tissue w Contrast (Generic) Result Date: 01/10/2021 EXAMINATION: CT NECK SOFT TISSUE W CONTRAST (GENERIC) CLINICAL HISTORY: Neck mass, solitary, afebrile; Hx of IV drug use, large right anterior neck mass, non pulsatile TECHNIQUE: CT neck performed after the intravenous administration of contrast. Administered 110.0 ml of OMNIPAQUE 350.00 mg/ml. COMPARISON: None FINDINGS: Within the soft tissues of the right lower neck is a large roughly oval shaped irregular rim-enhancing collection that measures 7 cm in craniocaudal dimension and 5.4 x 4.2 cm in cross-section, (ap and width). The collection lies deep to and with apparent involvement of the right sternocleidomastoid muscles and is maxx-lateral to and abuts to the carotid sheath, with notemade of posterior displacement, compression and slightly asymmetric enhancement of the right jugular vein compared to the left. No definite intraluminal venous thrombosis is identified. The adjacent right common carotid artery is patent. Mild mass effect on the right thyroid lobe. No mass effect onthe pharynx or upper airway. There are two linear radiopaque foreign bodies adjacent to the collection, one in the anterior medial base of the collection in the oblique position, measuring up to 1.5 cm, best seen on coronal series 7 image 44. A second approximately 1.4 mm linear radiopaque foreign body is in a vertical position at the lateral base also best seen on coronal images, series 7 image 49. There is edema and stranding of the adjacent soft tissues as well as cervical lymphadenopathy that is most severe on the right. Of note, contrast injection for the study was acquired in the right upper extremity with well opacified right subclavian and brachiocephalic vein, with punctate nondepen dent locules of air within the vessels that are attributed to the contrast injection. 1. Large right lower neck abscess with 2 linear radiopaque foreign bodies at the anterior and lateral base of the collection and extensive surrounding soft tissue inflammation and cervical adenopathy. 2. Associated mass effect with decreased/asymmetric enhancement of the right jugular vein comparedto the left. No definite thrombosis to suggest associated thrombophlebitis. Thank you for letting us participate in the care of this patient. If you are a health care provider and have any questions regarding this report, please contact the number below. For patients who have questions please contact the health career transition specialist that requested your imaging first. Discharge Info Discharge Condition: Stable Discharge to: Home Discharge Medications: Your Medications New Medications Dose Details amoxicillin-clavulanate 875-125 mg Tab Commonly known as: Augmentin Take 1 tablet by mouth 2 times daily. 1 tablet Quantity: 20 tablet Refills: 0 Continued medications, unchanged Dose Details acyclovir 200 mg Cap Commonly known as: ZOVIRAX as needed. Refills: 0 alendronate 70 mg Tab Commonly known as: Fosamax Take 70 mg by mouth every 7 days. Take in AM with full glass of water, on an empty stomach. Do not lie down for 30 min. Saturdays. 70 mg Refills: 0 buprenorphine-naloxone 8-2 mg Film Commonly known as: SUBOXONE Place 16 mg under the tongue daily. 16 mg Refills: 0 BUSPIRONE ORAL Take 5 mg by mouth 2 times daily. Takes midday and nightly 5 mg Refills: 0 cloNIDine 0.1 mg/24 hr Ptwk Commonly known as: CATAPRES Change 1 patch on the skin once a week. Sundays 1 patch Refills: 0 Dexmethylphenidate 30 mg Mp50 Take 30 mg by mouth daily. 30 mg Refills: 0 lamoTRIgine 25 mg Tab Commonly known as: LaMICtal Take 125 mg by mouth nightly. 125 mg Refills: 0 lithium 300 mg Cap Take 1,050 mg by mouth nightly. 1,050 mg Refills: 0 prazosin 2 mg Cap Commonly known as: Minipress Take 4 mg by mouth nightly. 4 mg Refills: 0 SEROqueL 100 mg Tab Take 400 mg by mouth nightly. Generic drug: QUEtiapine 400 mg Refills: 0 triamcinolone 0.1 % Oint Commonly known as: KENALOG Apply twice daily to the affected areas on the hands and lower legs for 21 days, then take one weekoff, and repeat as needed. Can occlude with cotton gloves after application to the hands at night Quantity: 80 g Refills: 2 Updated Allergies/ADRs: Allergies Allergen Reactions ??? Pcn [Penicillins] Info for Patient Patient Instructions Instructions for Patient at Discharge: What to expect: You will have soreness which will improve over the next several days. The area around the incision may be numb. This should recover over the next few months. Medications: Antibiotics - take the antibiotics as prescribed Take Augmentin twice a day for 10 days. Pain Control - use acetaminophen (Tylenol) and/or ibuprofen (Motrin, Advil) as needed. You can take 500 mg to 650 mg of Tylenol every 4-6 hours as needed. Do not exceed 4g acetaminophen per day and do not drink alcohol while taking tylenol. You can also take 400 to 600 mg of Ibuprofen (Motrin,Advil) every 6 hours as needed. Constipation - Consider the use of OTC Senna/Docusate, Miralax, Metamucil, prune juice or various suppositories if you have any constipation (especially if related to narcotic/opoid related pain medication) Incision/Drain/Wound Care Care: Your incision has one remaining drain attached with a suture. Please gently cut this suture 01/14/21 and remove the drain. Continue to wear loose gauze over the wound and change these regularly, at least once per day or more if the dressing becomes soiled. Keep the incision site clean and dry. Gently milk the incision to facilitate the movement of pus. You can shower, but while the wound is still draining you should not get this area wet. 48 hrs after the wound starts to close you can get this area wet in the shower. Do not submerge the wound for two weeks after it closes. Activity: A good rule of thumb is if it hurts don't do it. Keep your head elevated when lying flat. No heavy lifting or straining for the next week. No smoking, this is important for wound healing. Diet: Resume baseline diet You should call your doctor if you develop: -Increasing pain and redness -Increasing drainage from the wound -Fever > 38.5Celsius or 101 Fahrenheit -Bleeding Contact: -You can reach the ENT clinic at [phone] for appointment questions. -The ENT triage nurse is available at [phone] -For urgent issues during evenings (5 PM - 7 AM) and weekends the ENT resident brand protection manager can be reached through the main hospital clicking machine operator at [phone] Follow Up: You will need to follow up with ENT on Tuesday or Tuesday. This appointment has been requested. You will be notified once it is scheduled, if you do not already see it below. If you do not hear from usin a timely manner, please call to receive your date and time. Currently Scheduled Appointments and VNA instructions: General Instructions Substance Use Treatment and Relapse Prevention Resources Residential Treatment: [facility] [address] [place] [id number] [id number] Intensive Outpatient Programs: [facility] [address] [place], [place] [facility] [address] [place] [address] Individual Therapy: [facility] [address] [place], [place] [facility] [address] [place] [address] You may also search www.Fannect.CrowdHall or dial 211 for therapists in your area. Med[facility]: [facility] [address] [place] [address] [facility] [address] [place] [address] [place] [address] Peer Support Groups Alcoholics Anonymous (AA) [place]: , www.nhaa.net Narcotics Anonymous (NA) [place]: , www.Horizon Data Center Solutionsana.org Online AA and NA Meetings AA, NA, Refuge Recovery, SMART Recovery www.Go Vocab AA Video Meetings www.aa-intergroup.org/directory_audio-video.php AA Text Chat Meetings www.aa.intergroup.org/directory.php NA Video Meetings www.virtual-na.org/meetings NA Text Chat Meetings Www.Montage Studioaloneclub.org SMART Recovery Meetings via Zoom 5:00-6:00pm, free and open to all To join Zoom meetin. Visit www.[email or web address].CrowdHall 2. Click on calendar on top of toolbar 3. Find the correct meeting date and time 4. Click the zoom link and enter password provided 211: Your Connection to Recovery HUBS Dial 08-11- from anywhere in [place] 31/01 to be connected with a mental health professional who can refer you to your local HUB for evaluation and referral to appropriate substance use treatment. Safe Station Present to any one of the fire stations in [place] or [facility], now designated as ???Safe Stations?? , a place where you can walk in 31/01, and get connected with substance use treatment services. [facility] Safe Stations Central Fire Station: [address] --- Station 2: [address] Station 3: [address] --- Station 4: [address] Station 5: [address] --- Station 6: [address] Station 7: [address]--- Station 8: [address] [facility] [address] Station 9: [address]--- Station 10: [address] [facility] Safe Stations Station 1: [address] --- Station 2: [address] --- Station 3: [address] Station 4: [address] --- Station 5: [address] -- Station 6: [address] Station 7: [address] Additional Resources Www.vtaddictionservices.org www.healthvermont.gov/alcohol-drugs www.gytcwgw965.org/ (Search for Substance Use) www.Matrix Electronic Measuring/ Www.rethinkingdrinking.niaaa.nih.gov/ www.samhsa.gov/bxotrfldkq-gowpkgvo-zpwvssvql/iksustpmwnvb-hkwhntr-rqkp/treatment -practitioner-wing scorer Opiate Overdose Prevention: www.prescribetoprevent.org National Suicide Prevention Hotline: (747) 264-MABP (7118) NEW SYRINGE EXCHANGE PROTOCOL as of September Mobile operations by appointment. For more information about receiving supplies and naloxone or to schedule an appointment: [place] clients call and leave a message for Elli (ext. 105) or Johnson He (ext. 104). [place] clients call to speak with Johnson Zapata Suboxone Emergency Override There is an emergency override requirement on all medications that require prior insurance authorization. If you experience any issues picking up your suboxone prescription at the pharmacy you may request an override. They are required to provide the quantity of suboxone sufficient for 72 hours while the prior insurance authorization is being approved. Online Stress Reduction Resources www.LionWorks/videos-features/videos/hqirrpisw-rzvlttmoa-7-7-8-breath/ www.QuickSolarord.org/2013/ddzopkqdd-zglmicsqp-ddaiyon-moment/ www.MiTio.com/ www.mindful.org/ www.freemindfulness.org/ __ Primary Care Doctor: Laura Ho MD [phone] Signed: Simran Pineda MD 01/13/2021 documented in this encounter Discharge Instructions * Discharge Instructions* Gonzales Wolfe, BIN PACKER - 01/13/2021 8:03 AM EDT Substance Use Treatment and Relapse Prevention Resources Residential Treatment: [address] [address] Intensive Outpatient Programs: [address] Treatment [address] [phone] Individual Therapy: [address] [facility] [address] [place] [address] You may also search www.psychologyValuNetday.CrowdHall or Rivono for therapists in your area. Medication Assisted Treatment: [facility] [address] [place] [address] [facility] [address] [place] [address] [place] [address] Peer Support Groups Alcoholics Anonymous (AA) [place]: , www.nhaa.net Narcotics Anonymous (NA) [place]: , www.gmana.org Online AA and NA Meetings AA, NA, Refuge Recovery, SMART Recovery www.MyTable Restaurant Reservations.CrowdHall AA Video Meetings www.aa-intergroup.org/directory_audio-video.php AA Text Chat Meetings www.aa.intergroup.org/directory.php NA Video Meetings www.virtual-na.org/meetings NA Text Chat Meetings Www.neveraloneclub.org SMART Recovery Meetings via Zoom 5:00-6:00pm, free and open to all To join Zoom meetin. Visit www.PiCloud 2. Click on calendar on top of toolbar 3. Find the correct meeting date and time 4. Click the zoom link and enter password provided 211: Your Connection to Recovery HUBS Dial 2- from anywhere in [place] 31/01 to be connected with a mental health professional who can refer you to your local HUB for evaluation and referral to appropriate substance use treatment. Safe Station Present to any one of the fire stations in [place] or [facility], now designated as ???Safe Stations?? , a place where you can walk in 31/01, and get connected with substance use treatment services. [facility] Safe Stations Central Fire Station: [address] --- Station 2: [address] Station 3: [address] --- Station 4: [address] Station 5: [address] --- Station 6: [address] Station 7: [address]--- Station 8: [address] [facility] [facility] Station 9: [address]--- Station 10: [address] [facility] Safe Stations Station 1: [address] --- Station 2: [address] --- Station 3: [address] Station 4: [address] --- Station 5: [address] -- Station 6: [address] Station 7: [address] Additional Resources Www.vtaddictionservices.org www.healthvermont.gov/alcohol-drugs www..org/ (Search for Substance Use) www.psychologyTigerspike.CrowdHall/ Www.rethinkingdrinking.niaaa.nih.gov/ www.samhsa.gov/qtjefnlort-vflcynrm-fngzszuts/cobvhtjotljo-yyrnkhr-venz/treatment -practitioner-wing scorer Opiate Overdose Prevention: www.prescribetoprevent.org National Suicide Prevention Hotline: (645) 800-TALK (2207) NEW SYRINGE EXCHANGE PROTOCOL as of September Mobile operations by appointment. For more information about receiving supplies and naloxone or to schedule an appointment: [place] clients call and leave a message for Elli (ext. 105) or Johnson He (ext. 104). [place] clients call to speak with Johnson Zapata Suboxone Emergency Override There is an emergency override requirement on all medications that require prior insurance authorization. If you experience any issues picking up your suboxone prescription at the pharmacy you may request an override. They are required to provide the quantity of suboxone sufficient for 72 hours while the prior insurance authorization is being approved. Online Stress Reduction Resources www.LionWorks/videos-features/videos/oblkfmbji-lguekdjeq-6-7-8-breath/ www.Networks in Motion.Company/2013/ljonfjnkd-jtenyjift-smxqrvx-moment/ www.Girly Stuffce.CrowdHall/ www.mindful.org/ www.freemindfulness.org/ * Patient Instructions* Simran Pineda MD - 01/13/2021 8:12 AM EDT Instructions for Patient at Discharge: What to expect: You will have soreness which will improve over the next several days. The area around the incision may be numb. This should recover over the next few months. Medications: Antibiotics - take the antibiotics as prescribed Take Augmentin twice a day for 10 days. Pain Control - use acetaminophen (Tylenol) and/or ibuprofen (Motrin, Advil) as needed. You can take 500 mg to 650 mg of Tylenol every 4-6 hours as needed. Do not exceed 4g acetaminophen per day and do not drink alcohol while taking tylenol. You can also take 400 to 600 mg of Ibuprofen (Motrin,Advil) every 6 hours as needed. Constipation - Consider the use of OTC Senna/Docusate, Miralax, Metamucil, prune juice or various suppositories if you have any constipation (especially if related to narcotic/opoid related pain medication) Incision/Drain/Wound Care Care: Your incision has one remaining drain attached with a suture. Please gently cut this suture 01/14/21 and remove the drain. Continue to wear loose gauze over the wound and change these regularly, at least once per day or more if the dressing becomes soiled. Keep the incision site clean and dry. Gently milk the incision to facilitate the movement of pus. You can shower, but while the wound is still draining you should not get this area wet. 48 hrs after the wound starts to close you can get this area wet in the shower. Do not submerge the wound for two weeks after it closes. Activity: A good rule of thumb is if it hurts don't do it. Keep your head elevated when lying flat. No heavy lifting or straining for the next week. No smoking, this is important for wound healing. Diet: Resume baseline diet You should call your doctor if you develop: -Increasing pain and redness -Increasing drainage from the wound -Fever > 38.5Celsius or 101 Fahrenheit -Bleeding Contact: -You can reach the ENT clinic at [phone] for appointment questions. -The ENT triage nurse is available at [phone] -For urgent issues during evenings (5 PM - 7 AM) and weekends the ENT resident brand protection manager can be reached through the main hospital clicking machine operator at [phone] Follow Up: You will need to follow up with ENT on Tuesday or Tuesday. This appointment has been requested. You will be notified once it is scheduled, if you do not already see it below. If you do not hear from usin a timely manner, please call to receive your date and time. Currently Scheduled Appointments and VNA instructions: documented in this encounter Medications at Time [...] mouth nightly. amoxicillin-clavulanat e (Augmentin) 875-125 mg Tablet Take 1 tablet by mouth 2 times daily. 20 tablet 01/13/2021 12/03/2023 documented as of this encounter Progress Notes * Sagrario Baker RN - 01/13/2021 1:51 PM EDT D/C planning: Team: ENT Pager: [phone] Pt to d/c home via private vehicle. Pt/team feel no d/c needs identified at this time, printed Sera drain care instructions given to pt. Pt is aware of d/c plan. Sagrario Baker MSN, RN CM translator and interpreter Office of Care Management Pager #[phone] * April Herrera RN - 01/13/2021 1:04 PM EDT Patient Name: Harvey Espinosa Patient Age: 40 y.o. Birthdate: 1980 Admit date: 01/10/2021 Attending Physician: Rusty Gong MD Reviewed sera drain care with pt. explained to pt sera drain removal, allowed pt to ask any questions. * Kadie Casanova MSW - 01/13/2021 9:38 AM EDT Social Work Discharge Note Patient was discussed with team and RNCM. Patient is medically ready to discharge home today with oral ABX. Patient will have follow up with ENT this week. Patient will dc with 1 drain and need dressing materials for his neck. ELECTRONIC EQUIPMENT REPAIRMEN met with patient and life partner Luzmaria at bedside. Patient is looking forward to going home today. ELECTRONIC EQUIPMENT REPAIRMEN provided patient with Last Dose Letter just in case his suboxone clinic needed it. Patient reports he does not know how to manage his drain, but feels he could be comfortable after some teaching. Patient reports he managed ?wound packing for his leg (it wasn't a drain) so feels he can manage the drain after learning and hoping to learn before he is discharged. Luzmaria is willing to try to learn as well, but doesn't do well around blood. Patient denied other needs. Patient and Luzmaria appreciative of assistance and support during this hospitalization. ELECTRONIC EQUIPMENT REPAIRMEN updated bedside RN. SOLEDAD Gayle [facility] T[employer] And Tube Repairer Phone: [phone] Pager: [phone] * Rusty Gong MD - 01/12/2021 12:16 PM EDT OTOLARYNGOLOGY - HEAD & NECK SURGERY PROGRESS NOTE Name: Harvey Espinosa Age/Sex: 40 y.o. male Attending: Rusty Gong MD Hospital Day: 3 2 Days Post-Op History of Present Illness Harvey Espinosa is a 40 y.o. male with a history of IV drug use who has reportedly been clean for the past 7 years. His past medical history is also significant for bipolar disorder, PTSD, and Paget's disease. He is an active 2 pack a day smoker and drinks two 24 ounce beers daily and is on chronicSuboxone. He denies any history of alcohol withdrawal. He reports that a week ago he relapsed on injection practices in which he injects his nonsterile water into his right neck. He began having symptoms 6 days ago and has experienced a progressive pain and swelling of the right neck. He endorses some a diet aphasia, but denies any difficulty breathing, positional dyspnea, or voice changes. He does have pain when looking to the right. He does endorse fevers and chills. He has a history of hepatitis C for which she has had curative treatment. He denies any history of hepatitis B or HIV and hislast documented testing in our system was 2018. He does endorse prior abscesses that have required drainage, including a MRSA infection. Interval Events: Tolerating antibiotics well VSS Serosanguinous output from drains with some purulence WBC decreased to normal Awaiting speciation from microbiology Problem List Patient Active Problem List Diagnosis Code ??? 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 Smokes F17.200 ??? Bipolar disorder F31.9 ??? History of hepatitis C Z86.19 ??? PTSD (post-traumatic stress disorder) F43.10 ??? Schizoaffective disorder F25.9 ??? Chronic constipation K59.09 ??? ADD (attention deficit disorder) F98.8 ??? Opioid dependence on agonist therapy F11.20 ??? Neck abscess L02.11 Past Medical History Past Medical History: Diagnosis Date ??? Bipolar 1 disorder ??? Cellulitis of hand 12/09/2015 ??? Injury, superficial, hand with infection 12/10/2015 Past Surgical History Past Surgical History: Procedure Laterality Date ? ? PRO I&D DEEP ABSC/HEMATOMA NECK/CHEST Right 01/10/2021 I & D DEEP ABSCESS OR HEMATOMA, NECK (WRVU 3.98) performed by Rusty Gong MD at [facility] MAIN OR ??? PRO LAP, CHOLECYSTECTOMY/GRAPH N/A 09/15/2020 LAPAROSCOPIC CHOLECYSTECTOMY WITH CHOLANGIOGRAM (WRVU 11.47) performed by Jorge Luis Rios MD On license of [facility] MAIN OR Medications & Allergies No current facility-administered medications on file prior to encounter. Current Outpatient Medications on File Prior to Encounter Medication Sig Dispense Refill ??? prazosin (Minipress) 2 mg Capsule Take 4 mg by mouth nightly. ??? acyclovir (ZOVIRAX) 200 mg Capsule as needed. ??? cloNIDine (CATAPRES) 0.1 mg/24 hr Patch Weekly Change 1 patch on the skin once a week. Sundays ??? alendronate (Fosamax) 70 mg Tablet Take 70 mg by mouth every 7 days. Take in AM with full glassof water, on an empty stomach. Do not lie down for 30 min. Saturdays. ??? buspirone HCl (BUSPIRONE ORAL) Take 5 mg by mouth 2 times daily. Takes midday and nightly ??? triamcinolone (KENALOG) 0.1 % Ointment Apply twice daily to the affected areas on the hands andlower legs for 21 days, then take one week off, and repeat as needed. Can occlude with cotton gloves after application to the hands at night 80 g 2 ??? QUEtiapine (SEROqueL) 100 mg Tablet Take 400 mg by mouth nightly. ??? lithium 300 mg Capsule Take 1,050 mg by mouth nightly. ??? buprenorphine-nalOXone (SUBOXONE) 8-[address] 16 mg under the tongue daily. ??? Dexmethylphenidate 30 mg Capsule, Multiphasic Rel.50-50 Take 30 mg by mouth daily. ??? lamoTRIgine (LAMICTAL) 25 mg Tablet Take 125 mg by mouth nightly. Pcn [penicillins] Social History Lives in [facility] [id number] Social History Socioeconomic History ??? Marital status: Spouse name: Not on file ??? Number of children: Not on file ??? Years of education: Not on file ??? Highest education level: Not on file Occupational History ??? Not on file Tobacco Use ??? Smoking status: Current Every Day Smoker Types: Cigarettes ??? Smokeless tobacco: Never Used Vaping Use ??? Vaping Use: Never used Substance and Sexual Activity ??? Alcohol use: Yes Alcohol/week: 6.0 standard drinks Types: 6 Cans of beer per week ??? Drug use: Not Currently Types: IV ??? Sexual activity: Not on file Other Topics Concern ??? Do You live alone? No ??? Tobacco in Home Not Asked Social History Narrative ??? Not on file Social Determinants of Health Financial Resource Strain: ??? Difficulty of Paying Living Expenses: Food Insecurity: ??? Worried About Running Out of Food in the Last Year: ??? Ran Out of Food in the Last Year: Transportation Needs: ??? Lack of Transportation (Medical): ??? Lack of Transportation (Non-Medical): Physical Activity: ??? Days of Exercise per Week: ??? Minutes of Exercise per Session: Family History Family History Problem Relation Age of Onset ??? Alcohol Use Disorder Mother ??? Heart Disease Mother Review of Systems Pertinent positive findings discussed above. No other findings on review of constitutional, visual,cardiovascular, respiratory, gastrointestinal, genitourinary, musculoskeletal, dermatologic, neurological, psychiatric, endocrine, hematologic or immunologic systems. Vitals Last value 24hr Range Temperature: 36.8 ??C (98.2 ??F) Temp: [36.7 ??C (98.1 ??F)-36.9 ??C (98.4 ??F)] Heart Rate: 58 Heart Rate: [58] Blood Pressure: 119/78 BP: (113-143)/(68-82) Respiratory Rate: 17 Resp: [16-18] SpO2: 96 % SpO2: [94 %-97 %] Physical Exam General: NAD, non-ill appearing Face: Symmetric without dysmorphic features Eyes: EOMI, conjunctiva healthy Ears: Auricles symmetric, no lesions Nose: Patent nares, grossly normal appearance Oral Cavity/Pharynx: Mucosa is pink, oropharynx symmetric, mirror exam without obvious laryngeal edema Neck: Right neck with sera drains x2 sutured to the skin with serosanguinous drainage and small amounts of purulence. Right neck with some residual swelling and induration of the skin Chest: Unlabored respirations Neuro: Alert & oriented, moving extremities x 4 Procedures None performed Labs Recent Labs 01/12/21 0632 01/10/21 1536 WBC 6.7 15.4* HGB 13.2* 13.2* HCT 42.6 41.2 PLATELET 413* 387* NA -- 138 K -- 4.0 CL -- 100 CO2 -- 24 BUN -- 8* CREATININE -- 0.93 GLUCOSE -- 95 CALCIUM -- 10.1 Imaging EXAMINATION: CT NECK SOFT TISSUE W CONTRAST (GENERIC) ?? CLINICAL HISTORY: Neck mass, solitary, afebrile; Hx of IV drug use, large right anterior neck mass, non pulsatile ?? TECHNIQUE: CT neck performed after the intravenous administration of contrast. Administered 110.0 ml of OMNIPAQUE 350.00 mg/ml. ?? COMPARISON: None ?? FINDINGS: Within the soft tissues of the right lower neck is a large roughly oval shaped irregular rim-enhancing collection that measures 7 cm in craniocaudal dimension and 5.4 x 4.2 cm in cross-section, (ap and width). The collection lies deep to and with apparent involvement of the right sternocleidomastoid muscles and is maxx-lateral to and abuts to the carotid sheath, with note made of posterior displacement, compression and slightly asymmetric enhancement of the right jugular vein compared to the left. No definite intraluminal venous thrombosis is identified. The adjacent right common carotid artery is patent. Mild mass effect on the right thyroid lobe. No mass effect on the pharynx or upper airway. ?? There are two linear radiopaque foreign bodies adjacent to the collection, one in the anterior medial base of the collection in the oblique position, measuring up to 1.5 cm, best seen on coronal series 7 image 44. A second approximately 1.4 mm linear radiopaque foreign body is in a vertical position at the lateral base also best seen on coronal images, series 7 image 49. There is edema and stranding of the adjacent soft tissues as well as cervical lymphadenopathy that is most severe on the right. Of note, contrast injection for the study was acquired in the right upper extremity with well opacified right subclavian and brachiocephalic vein, with punctate nondependent locules of air within the vessels that are attributed to the contrast injection. ?? IMPRESSION 1. Large right lower neck abscess with 2 linear radiopaque foreign bodies at the anterior and lateral base of the collection and extensive surrounding soft tissue inflammation and cervical adenopathy. 2. Associated mass effect with decreased/asymmetric enhancement of the right jugular vein compared to the left. No definite thrombosis to suggest associated thrombophlebitis. *Personally reviewed and evaluated ASSESSMENT & PLAN Harvey Espinosa is a 40 y.o. male with a large right neck abscess secondary to injection of water. He does have two retained needle fragments that he reports are 3 years old and are unlikely to be contributing to the source of his infection. The CT scan cannot completely rule out thrombophlebitis of the internal jugular vein and expedited incision and drainage of the abscess is indicated. The patient does have risk factors for MRSA and thus we will plan to cover him broadly until return of microbiology. Plan to admit postoperatively for IV antibiotics. Surgical Head & Neck: s/p I&D of abscess. Change fluffs as needed for drainage and take care not to incidentally remove the drains Neuro: tylenol hernando, ibuprofen hernando, home suboxone, home psych meds CV: LEYDI Pulm: IS GI/FEN: Regular diet after surgery : LEYDI Endo: LEYDI Heme: LEYDI ID: Vancomycin/cefepime, f/u micro studies MSK: Up ad franko PPx: Lovenox, SCD Consults: None Dispo: Floor __ Kyle Still MD, PGY4 01/12/21 12:16 PM ENT Team Pager: [phone] * Violeta Singer RN - 01/12/2021 3:12 AM EDT OUTCOME EVALUATION NOTE: OUTCOME SUMMARY: Patient progressing towards d/c goals appropriately at this time. A/O x4. VSS on RA. No complaints of pain. Nicotine patch increased per patient request. IV flushes without difficulty. IV abx given as ordered. Dressing intact, little to know drainage from drain. Tolerating PO diet Voiding spontaneously. PLAN MOVING FORWARD: Pain control Awaiting fluid culture to know if pt. Needs abx to go home on. INDIVIDUALIZED FALL PREVENTION: Patient is currently a high risk to Fall. Patient educated on bed/chair alarm, demonstrates proper use of call armendariz and verbalizes understanding of fall preventions implemented. Patient-specific fall risk factors per assessment: [current deficits]:Pain, Medications, Hospital Environment, Impaired Mobility, Recent Surgery Assistance [level of assistance required for transfers and ambulation]: Independent Supervision [direct monitoring required during toileting and ADLs]: independent with ADL's Surveillance [continuous indirect monitoring]: Masimo, Purposeful Rounding, Nurse Knowledge Exchange at Bedside * Rusty Gong MD - 01/11/2021 8:43 AM EDT OTOLARYNGOLOGY - HEAD & NECK SURGERY PROGRESS NOTE Name: Harvey Espinosa Age/Sex: 40 y.o. male Attending: Rusty Gong MD Hospital Day: 2 1 Day Post-Op History of Present Illness Harvey Espinosa is a 40 y.o. male with a history of IV drug use who has reportedly been clean for the past 7 years. His past medical history is also significant for bipolar disorder, PTSD, and Paget's disease. He is an active 2 pack a day smoker and drinks two 24 ounce beers daily and is on chronicSuboxone. He denies any history of alcohol withdrawal. He reports that a week ago he relapsed on injection practices in which he injects his nonsterile water into his right neck. He began having symptoms 6 days ago and has experienced a progressive pain and swelling of the right neck. He endorses some a diet aphasia, but denies any difficulty breathing, positional dyspnea, or voice changes. He does have pain when looking to the right. He does endorse fevers and chills. He has a history of hepatitis C for which she has had curative treatment. He denies any history of hepatitis B or HIV and hislast documented testing in our system was 2017. He does endorse prior abscesses that have required drainage, including a MRSA infection. Interval Events: S/p I&D with placement of sera drains x2 Started on vancomycin/cefepime Feeling better than last night and pain is controlled GPCs on initial gram stain Problem List Patient Active Problem List Diagnosis Code ??? 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 Smokes F17.200 ??? Bipolar disorder F31.9 ??? History of hepatitis C Z86.19 ??? PTSD (post-traumatic stress disorder) F43.10 ??? Schizoaffective disorder F25.9 ??? Chronic constipation K59.09 ??? ADD (attention deficit disorder) F98.8 ??? Opioid dependence on agonist therapy F11.20 ??? Neck abscess L02.11 Past Medical History Past Medical History: Diagnosis Date ??? Bipolar 1 disorder ??? Cellulitis of hand 12/09/2015 ??? Injury, superficial, hand with infection 12/10/2015 Past Surgical History Past Surgical History: Procedure Laterality Date ? ? PRO I&D DEEP ABSC/HEMATOMA NECK/CHEST Right 01/10/2021 I & D DEEP ABSCESS OR HEMATOMA, NECK (WRVU 3.98) performed by Rusty Gong MD at [facility] MAIN OR ??? PRO LAP, CHOLECYSTECTOMY/GRAPH N/A 09/15/2020 LAPAROSCOPIC CHOLECYSTECTOMY WITH CHOLANGIOGRAM (WRVU 11.47) performed by Jorge Luis Rios MD On license of [facility] MAIN OR Medications & Allergies No current facility-administered medications on file prior to encounter. Current Outpatient Medications on File Prior to Encounter Medication Sig Dispense Refill ??? prazosin (Minipress) 2 mg Capsule Take 4 mg by mouth nightly. ??? acyclovir (ZOVIRAX) 200 mg Capsule as needed. ??? cloNIDine (CATAPRES) 0.1 mg/24 hr Patch Weekly Change 1 patch on the skin once a week. Sundays ??? alendronate (Fosamax) 70 mg Tablet Take 70 mg by mouth every 7 days. Take in AM with full glassof water, on an empty stomach. Do not lie down for 30 min. Saturdays. ??? buspirone HCl (BUSPIRONE ORAL) Take 5 mg by mouth 2 times daily. Takes midday and nightly ??? triamcinolone (KENALOG) 0.1 % Ointment Apply twice daily to the affected areas on the hands andlower legs for 21 days, then take one week off, and repeat as needed. Can occlude with cotton gloves after application to the hands at night 80 g 2 ??? QUEtiapine (SEROqueL) 100 mg Tablet Take 400 mg by mouth nightly. ??? lithium 300 mg Capsule Take 1,050 mg by mouth nightly. ??? buprenorphine-nalOXone (SUBOXONE) 8-[address] 16 mg under the tongue daily. ??? Dexmethylphenidate 30 mg Capsule, Multiphasic Rel.50-50 Take 30 mg by mouth daily. ??? lamoTRIgine (LAMICTAL) 25 mg Tablet Take 125 mg by mouth nightly. Pcn [penicillins] Social History Lives in [facility] [id number] Social History Socioeconomic History ??? Marital status: Spouse name: Not on file ??? Number of children: Not on file ??? Years of education: Not on file ??? Highest education level: Not on file Occupational History ??? Not on file Tobacco Use ??? Smoking status: Current Every Day Smoker Types: Cigarettes ??? Smokeless tobacco: Never Used Vaping Use ??? Vaping Use: Never used Substance and Sexual Activity ??? Alcohol use: Yes Alcohol/week: 6.0 standard drinks Types: 6 Cans of beer per week ??? Drug use: Not Currently Types: IV ??? Sexual activity: Not on file Other Topics Concern ??? Do You live alone? No ??? Tobacco in Home Not Asked Social History Narrative ??? Not on file Social Determinants of Health Financial Resource Strain: ??? Difficulty of Paying Living Expenses: Food Insecurity: ??? Worried About Running Out of Food in the Last Year: ??? Ran Out of Food in the Last Year: Transportation Needs: ??? Lack of Transportation (Medical): ??? Lack of Transportation (Non-Medical): Physical Activity: ??? Days of Exercise per Week: ??? Minutes of Exercise per Session: Family History Family History Problem Relation Age of Onset ??? Alcohol Use Disorder Mother ??? Heart Disease Mother Review of Systems Pertinent positive findings discussed above. No other findings on review of constitutional, visual,cardiovascular, respiratory, gastrointestinal, genitourinary, musculoskeletal, dermatologic, neurological, psychiatric, endocrine, hematologic or immunologic systems. Vitals Last value 24hr Range Temperature: 36.8 ??C (98.2 ??F) Temp: [36.5 ??C (97.7 ??F)-37.6 ??C (99.7 ??F)] Heart Rate: 73 Heart Rate: [72-78] Blood Pressure: 116/70 BP: (116-148)/(70-95) Respiratory Rate: 17 Resp: [10-18] SpO2: 94 % SpO2: [94 %-100 %] Physical Exam General: NAD, non-ill appearing Face: Symmetric without dysmorphic features Eyes: EOMI, conjunctiva healthy Ears: Auricles symmetric, no lesions Nose: Patent nares, grossly normal appearance Oral Cavity/Pharynx: Mucosa is pink, oropharynx symmetric, mirror exam without obvious laryngeal edema Neck: Right neck with sera drains x2 sutured to the skin with serosanguinous drainage. Chest: Unlabored respirations Neuro: Alert & oriented, moving extremities x 4 Procedures None performed Labs Recent Labs 01/10/21 1536 WBC 15.4* HGB 13.2* HCT 41.2 PLATELET 387* NA 138 K 4.0 CL 100 CO2 24 BUN 8* CREATININE 0.93 GLUCOSE 95 CALCIUM 10.1 Imaging EXAMINATION: CT NECK SOFT TISSUE W CONTRAST (GENERIC) ?? CLINICAL HISTORY: Neck mass, solitary, afebrile; Hx of IV drug use, large right anterior neck mass, non pulsatile ?? TECHNIQUE: CT neck performed after the intravenous administration of contrast. Administered 110.0 ml of OMNIPAQUE 350.00 mg/ml. ?? COMPARISON: None ?? FINDINGS: Within the soft tissues of the right lower neck is a large roughly oval shaped irregular rim-enhancing collection that measures 7 cm in craniocaudal dimension and 5.4 x 4.2 cm in cross-section, (ap and width). The collection lies deep to and with apparent involvement of the right sternocleidomastoid muscles and is maxx-lateral to and abuts to the carotid sheath, with note made of posterior displacement, compression and slightly asymmetric enhancement of the right jugular vein compared to the left. No definite intraluminal venous thrombosis is identified. The adjacent right common carotid artery is patent. Mild mass effect on the right thyroid lobe. No mass effect on the pharynx or upper airway. ?? There are two linear radiopaque foreign bodies adjacent to the collection, one in the anterior medial base of the collection in the oblique position, measuring up to 1.5 cm, best seen on coronal series 7 image 44. A second approximately 1.4 mm linear radiopaque foreign body is in a vertical position at the lateral base also best seen on coronal images, series 7 image 49. There is edema and stranding of the adjacent soft tissues as well as cervical lymphadenopathy that is most severe on the right. Of note, contrast injection for the study was acquired in the right upper extremity with well opacified right subclavian and brachiocephalic vein, with punctate nondependent locules of air within the vessels that are attributed to the contrast injection. ?? IMPRESSION 1. Large right lower neck abscess with 2 linear radiopaque foreign bodies at the anterior and lateral base of the collection and extensive surrounding soft tissue inflammation and cervical adenopathy. 2. Associated mass effect with decreased/asymmetric enhancement of the right jugular vein compared to the left. No definite thrombosis to suggest associated thrombophlebitis. *Personally reviewed and evaluated ASSESSMENT & PLAN Harvey Espinosa is a 40 y.o. male with a large right neck abscess secondary to injection of water. He does have two retained needle fragments that he reports are 3 years old and are unlikely to be contributing to the source of his infection. The CT scan cannot completely rule out thrombophlebitis of the internal jugular vein and expedited incision and drainage of the abscess is indicated. The patient does have risk factors for MRSA and thus we will plan to cover him broadly until return of microbiology. Plan to admit postoperatively for IV antibiotics. Surgical Head & Neck: s/p I&D of abscess. Change fluffs as needed for drainage and take care not to incidentally remove the drains Neuro: tylenol hernando, ibuprofen hernando, home suboxone, home psych meds CV: LEYDI Pulm: IS GI/FEN: Regular diet after surgery : LEYDI Endo: LEYDI Heme: LEYDI ID: Vancomycin/cefepime, f/u micro studies MSK: Up ad franko PPx: Lovenox, SCD Consults: None Dispo: Floor __ Kyle Still MD, PGY4 07/04/21 8:43 AM ENT Team Pager: [phone] ENT ATTENDING STAFF NOTE: I personally reviewed the above note including the documented history and agree with the outlined plan. Rusty Gong MD * Violeta Singer RN - 01/11/2021 1:54 AM EDT Pt arrived to floor from PACU after I& D to right side of neck. Pt alert and oriented x4. Pt reports pain 3/10. Pt denies any chest pain, shortness of breath, dizziness or nausea. Refer to doc flow sheets for full assessment. Patient oriented to room with call armendariz within reach. Will continue to monitor. documented in this encounter H&P Notes * Rusty Gong MD - 01/10/2021 10:12 PM EDT OTOLARYNGOLOGY - HEAD & NECK SURGERY ADMISSION H& Name: Harvey Espinosa Age/Sex: 40 y.o. male Attending: Bee Malone MD Hospital Day: 1 Day of Surgery ENT CONSULTATION History of Present Illness Harvey Espinosa is a 40 y.o. male with a history of IV drug use who has reportedly been clean for the past 7 years. His past medical history is also significant for bipolar disorder, PTSD, and Paget's disease. He is an active 2 pack a day smoker and drinks two 24 ounce beers daily and is on chronicSuboxone. He denies any history of alcohol withdrawal. He reports that a week ago he relapsed on injection practices in which he injects his nonsterile water into his right neck. He began having symptoms 6 days ago and has experienced a progressive pain and swelling of the right neck. He endorses some a diet aphasia, but denies any difficulty breathing, positional dyspnea, or voice changes. He does have pain when looking to the right. He does endorse fevers and chills. He has a history of hepatitis C for which she has had curative treatment. He denies any history of hepatitis B or HIV and hislast documented testing in our system was 2018. He does endorse prior abscesses that have required drainage, including a MRSA infection. Problem List Patient Active Problem List Diagnosis Code ??? 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 Smokes F17.200 ??? Bipolar disorder F31.9 ??? History of hepatitis C Z86.19 ??? PTSD (post-traumatic stress disorder) F43.10 ??? Schizoaffective disorder F25.9 ??? Chronic constipation K59.09 ??? ADD (attention deficit disorder) F98.8 ??? Opioid dependence on agonist therapy F11.20 Past Medical History Past Medical History: Diagnosis Date ??? Bipolar 1 disorder ??? Cellulitis of hand 12/09/2015 ??? Injury, superficial, hand with infection 12/10/2015 Past Surgical History Past Surgical History: Procedure Laterality Date ??? PRO LAP, CHOLECYSTECTOMY/GRAPH N/A 09/15/2020 LAPAROSCOPIC CHOLECYSTECTOMY WITH CHOLANGIOGRAM (WRVU 11.47) performed by Jorge Luis Rios MD On license of [facility] MAIN OR Medications & Allergies No current facility-administered medications on file prior to encounter. Current Outpatient Medications on File Prior to Encounter Medication Sig Dispense Refill ??? prazosin (Minipress) 2 mg Capsule Take 4 mg by mouth nightly. ??? acyclovir (ZOVIRAX) 200 mg Capsule as needed. ??? cloNIDine (CATAPRES) 0.1 mg/24 hr Patch Weekly Change 1 patch on the skin once a week. Sundays ??? alendronate (Fosamax) 70 mg Tablet Take 70 mg by mouth every 7 days. Take in AM with full glassof water, on an empty stomach. Do not lie down for 30 min. Saturdays. ??? buspirone HCl (BUSPIRONE ORAL) Take 5 mg by mouth 2 times daily. Takes midday and nightly ??? triamcinolone (KENALOG) 0.1 % Ointment Apply twice daily to the affected areas on the hands andlower legs for 21 days, then take one week off, and repeat as needed. Can occlude with cotton gloves after application to the hands at night 80 g 2 ??? QUEtiapine (SEROqueL) 100 mg Tablet Take 400 mg by mouth nightly. ??? lithium 300 mg Capsule Take 1,050 mg by mouth nightly. ??? buprenorphine-nalOXone (SUBOXONE) 8-[address] 16 mg under the tongue daily. ??? Dexmethylphenidate 30 mg Capsule, Multiphasic Rel.50-50 Take 30 mg by mouth daily. ??? lamoTRIgine (LAMICTAL) 25 mg Tablet Take 125 mg by mouth nightly. Pcn [penicillins] Social History Lives in [facility] [id number] Social History Socioeconomic History ??? Marital status: Spouse name: Not on file ??? Number of children: Not on file ??? Years of education: Not on file ??? Highest education level: Not on file Occupational History ??? Not on file Tobacco Use ??? Smoking status: Current Every Day Smoker Types: Cigarettes ??? Smokeless tobacco: Never Used Vaping Use ??? Vaping Use: Never used Substance and Sexual Activity ??? Alcohol use: Yes Alcohol/week: 6.0 standard drinks Types: 6 Cans of beer per week ??? Drug use: Not Currently Types: IV ??? Sexual activity: Not on file Other Topics Concern ??? Do You live alone? No ??? Tobacco in Home Not Asked Social History Narrative ??? Not on file Social Determinants of Health Financial Resource Strain: ??? Difficulty of Paying Living Expenses: Food Insecurity: ??? Worried About Running Out of Food in the Last Year: ??? Ran Out of Food in the Last Year: Transportation Needs: ??? Lack of Transportation (Medical): ??? Lack of Transportation (Non-Medical): Physical Activity: ??? Days of Exercise per Week: ??? Minutes of Exercise per Session: Family History Family History Problem Relation Age of Onset ??? Alcohol Use Disorder Mother ??? Heart Disease Mother Review of Systems Pertinent positive findings discussed above. No other findings on review of constitutional, visual,cardiovascular, respiratory, gastrointestinal, genitourinary, musculoskeletal, dermatologic, neurological, psychiatric, endocrine, hematologic or immunologic systems. Vitals Last value 24hr Range Temperature: 36.5 ??C (97.7 ??F) Temp: [36.5 ??C (97.7 ??F)] Heart Rate: 75 Heart Rate: [75] Blood Pressure: 122/79 BP: (122-141)/(79-91) Respiratory Rate: 14 Resp: [14-18] SpO2: 97 % SpO2: [94 %-100 %] Physical Exam General: NAD, non-ill appearing Face: Symmetric without dysmorphic features Eyes: EOMI, conjunctiva healthy Ears: Auricles symmetric, no lesions Nose: Patent nares, grossly normal appearance Oral Cavity/Pharynx: Mucosa is pink, oropharynx symmetric, mirror exam without obvious laryngeal edema Neck: Right neck mass with induration and erythema of the skin and a 2cm x 2cm area of fluctuance over the anterior border of the SCM. TTP. Chest: Unlabored respirations Neuro: Alert & oriented, moving extremities x 4 Procedures None performed Labs Recent Labs 01/10/21 1536 WBC 15.4* HGB 13.2* HCT 41.2 PLATELET 387* NA 138 K 4.0 CL 100 CO2 24 BUN 8* CREATININE 0.93 GLUCOSE 95 CALCIUM 10.1 Imaging EXAMINATION: CT NECK SOFT TISSUE W CONTRAST (GENERIC) ?? CLINICAL HISTORY: Neck mass, solitary, afebrile; Hx of IV drug use, large right anterior neck mass, non pulsatile ?? TECHNIQUE: CT neck performed after the intravenous administration of contrast. Administered 110.0 ml of OMNIPAQUE 350.00 mg/ml. ?? COMPARISON: None ?? FINDINGS: Within the soft tissues of the right lower neck is a large roughly oval shaped irregular rim-enhancing collection that measures 7 cm in craniocaudal dimension and 5.4 x 4.2 cm in cross-section, (ap and width). The collection lies deep to and with apparent involvement of the right sternocleidomastoid muscles and is maxx-lateral to and abuts to the carotid sheath, with note made of posterior displacement, compression and slightly asymmetric enhancement of the right jugular vein compared to the left. No definite intraluminal venous thrombosis is identified. The adjacent right common carotid artery is patent. Mild mass effect on the right thyroid lobe. No mass effect on the pharynx or upper airway. ?? There are two linear radiopaque foreign bodies adjacent to the collection, one in the anterior medial base of the collection in the oblique position, measuring up to 1.5 cm, best seen on coronal series 7 image 44. A second approximately 1.4 mm linear radiopaque foreign body is in a vertical position at the lateral base also best seen on coronal images, series 7 image 49. There is edema and stranding of the adjacent soft tissues as well as cervical lymphadenopathy that is most severe on the right. Of note, contrast injection for the study was acquired in the right upper extremity with well opacified right subclavian and brachiocephalic vein, with punctate nondependent locules of air within the vessels that are attributed to the contrast injection. ?? IMPRESSION 1. Large right lower neck abscess with 2 linear radiopaque foreign bodies at the anterior and lateral base of the collection and extensive surrounding soft tissue inflammation and cervical adenopathy. 2. Associated mass effect with decreased/asymmetric enhancement of the right jugular vein compared to the left. No definite thrombosis to suggest associated thrombophlebitis. *Personally reviewed and evaluated ASSESSMENT & PLAN Harvey Espinosa is a 40 y.o. male with a large right neck abscess secondary to injection of water. He does have two retained needle fragments that he reports are 3 years old and are unlikely to be contributing to the source of his infection. The CT scan cannot completely rule out thrombophlebitis of the internal jugular vein and expedited incision and drainage of the abscess is indicated. The patient does have risk factors for MRSA and thus we will plan to cover him broadly until return of microbiology. Plan to admit postoperatively for IV antibiotics. Surgical Head & Neck: I&D of right neck abscess with potential removal of the more superficial needle fragment Neuro: tylenol hernando, ibuprofen hernando, home suboxone, home psych meds CV: Consider TTE if murmur is present Pulm: IS GI/FEN: Regular diet after surgery : LEYDI Endo: LEYDI Heme: LEYDI ID: Vancomycin/Zosyn, f/u micro studies MSK: Up ad franko PPx: Lovenox, SCD Consults: None Dispo: Floor __ Kyle Still MD, PGY4 01/10/21 10:12 PM ENT Team Pager: [phone] ENT CONSULTATION- ATTENDING STAFF NOTE: The patient has been requested in consultation Laura Ho MD for DEEP NECK INFECTION The patient's history and physical findings are confirmed. I also reviewed personally the hematologic and radiologic investigations and agree with the documentation reported. I agree with the plan outlined above. All the patient's questions were answered.Jasper will need to be taken to the OR for I&D of his right neck abscess. We discussed the potential risks and complications and of concern is internal jugular septic thrombophlebitis. Rusty Gong MD, [facility] Attending Staff documented in this encounter ED Notes * Colleen Swan RN - 01/10/2021 10:40 PM EDT Pt to OR with anesthsia * Mihaela Chang LPN - 01/10/2021 8:48 PM EDT Pt up and ambulated to bathroom to give a urine sample. updated pt and . * Berta Meek - 01/10/2021 8:39 PM EDT [facility] SENIOR ENERGY TRADER ED: Length of Team Otr Truck Driver services provided to ED patient:: 30 min How did the patient enter the program?: Other Did the patient consent to Team Otr Truck Driver services?: No RC introduced self and role. Pt declined services at this time. ALLEGRA Gaitan ED Recovery Support Pager # [phone] * Colleen Swan RN - 01/10/2021 7:50 PM EDT Spouse comes to RN and states he has developed 2 more swellings. In to see pt. Large mass becoming shiny in one area. Pt has 2 new small swollen areas. MD notified and will See pt. * Jairo Pickett MD - 01/10/2021 3:03 PM EDT Images from the original note were not included. Harvey Espinosa is an 40 y.o. male who presents to the ED with: Chief Complaint Patient presents with ??? Abscess right neck ??? Head Injury 4 days ago I saw this patient 01/10/2021 at ~ 10:45 PM HPI Harvey Espinosa is a 40 y.o. male with a PMH significant for schizoaffective disorder, IV drug use currently on Suboxone who presents to the Emergency Department with complaints of a neck mass. The patient starting 5 days ago he began to have an increasing size of a mass on the right anterior neck.The patient states that he has a history of IV drug use and starting roughly week ago he began to inject water into the veins of his right neck. The patient states that he was not injecting drugs wasinjecting tap water. Patient states that the past 5 days he has noticed an increasing mass which has been tender and associated with body chills. Patient denies any difficulty swallowing or breathingbut states that is very uncomfortable to turn his neck to the right. Patient does have a history ofMRSA infections and stated that he had a abscess on his right popliteal area where he was injectingdrugs several years ago which required surgical debridement. Patient states that 3 to 4 days ago healso hit his head on a wooden beam. The patient states he hit it when bending down and struck the area on top of his head. He denies any loss of conscious but states that he felt nauseous afterwards.Patient states that he vomited yesterday and today one time. He denies any known fevers or abdominal pain. Patient states that he has been compliant with his Suboxone he takes sublingually. Patient al ways takes lithium, Seroquel, lamotrigine, clonidine, prazosin. Social History Socioeconomic History ??? Marital status: Spouse name: None ??? Number of children: None ??? Years of education: None ??? Highest education level: None Occupational History ??? None Tobacco Use ??? Smoking status: Current Every Day Smoker Types: Cigarettes ??? Smokeless tobacco: Never Used Vaping Use ??? Vaping Use: Never used Substance and Sexual Activity ??? Alcohol use: Yes Alcohol/week: 6.0 standard drinks Types: 6 Cans of beer per week ??? Drug use: Not Currently Types: IV ??? Sexual activity: None Other Topics Concern ??? Do You live alone? No ??? Tobacco in Home Not Asked Social History Narrative ??? None Social Determinants of Health Financial Resource Strain: ??? Difficulty of Paying Living Expenses: Food Insecurity: ??? Worried About Running Out of Food in the Last Year: ??? Ran Out of Food in the Last Year: Transportation Needs: ??? Lack of Transportation (Medical): ??? Lack of Transportation (Non-Medical): Physical Activity: ??? Days of Exercise per Week: ??? Minutes of Exercise per Session: Review of Systems: Pertinent positives and negatives are included in the history of present illness, otherwise 10 systems are reviewed and negative Vital Signs: Patient Vitals for the past 24 hrs: BP Temp Temp src Pulse Resp SpO2 Height Weight 01/10/21 1945 148/88 36.8 ??C (98.2 ??F) Oral 72 16 100 % -- -- 01/10/21 1900 -- -- -- -- -- 97 % -- -- 01/10/21 1830 -- -- -- -- -- 94 % -- -- 01/10/21 1800 -- -- -- -- -- 96 % -- -- 01/10/21 1730 -- -- -- -- 14 96 % -- -- 01/10/21 1700 -- -- -- -- -- 97 % -- -- 01/10/21 1630 -- -- -- -- -- 100 % -- -- 01/10/21 1600 122/79 -- -- -- -- 99 % -- -- 01/10/21 1530 128/83 -- -- -- -- 98 % -- -- 01/10/21 1500 133/82 -- -- -- 16 100 % -- -- 01/10/21 1447 141/81 -- -- -- -- 98 % -- -- 01/10/21 1438 (!) 137/91 36.5 ??C (97.7 ??F) Oral 75 18 100 % 188 cm (6' 2) 81.6 kg (179 lb 14.4 oz) I have reviewed the vital signs, which demonstrates Physical Exam: Physical Exam Constitutional: General: He is not in acute distress. Appearance: Normal appearance. He is normal weight. He is not ill-appearing. HENT: Head: Normocephalic and atraumatic. Eyes: Conjunctiva/sclera: Conjunctivae normal. Pupils: Pupils are equal, round, and reactive to light. Neck: Comments: Right anterior neck mass which is fluctuant, and tender to palpation. See attached images Cardiovascular: Rate and Rhythm: Normal rate and regular rhythm. Pulmonary: Effort: Pulmonary effort is normal. No respiratory distress. Abdominal: General: Abdomen is flat. Tenderness: There is no abdominal tenderness. Musculoskeletal: General: No swelling or tenderness. Cervical back: Neck supple. Skin: General: Skin is warm and dry. Capillary Refill: Capillary refill takes less than 2 seconds. Neurological: General: No focal deficit present. Mental Status: He is alert and oriented to person, place, and time. Psychiatric: Mood and Affect: Mood normal. Behavior: Behavior normal. ED Course: - Patient was evaluated and discussed with the Attending Physician - Medications, allergies and past medical history reviewed - Nursing notes and vital signs reviewed - Medications and fluid administered: Medications buprenorphine-naloxone (Suboxone) 8-2 mg disintegrating tablet 1 tablet (1 tablet Sublingual Given 01/10/211737) vancomycin (Vancocin) 2 gram in sodium chloride 0.9% 500 mL infusion (has no administration in timerange) And Vancomycin Level - MAR Order Reminder (has no administration in time range) vancomycin (Vancocin) 1 gram in sodium chloride 0.9% 250 mL infusion (has no administration in timerange) And Vancomycin Level - MAR Order Reminder (has no administration in time range) iohexoL (Omnipaque) (350 mg/mL) injection solution 0-200 mL (110 mLs Intravenous Given 01/10/211930) ketorolac (Toradol) (15 mg/mL) injection 15 mg (15 mg Intravenous Given 01/10/212044) - I have reviewed the labs, which are significant for: Recent Results (from the past 24 hour(s)) Basic Metabolic Panel (non-fasting) Result Value Ref Range Glucose Lvl 95 65 - 199 mg/dL BUN 8 (L) 10 - 20 mg/dL Creatinine 0.93 0.80 - 1.50 mg/dL Sodium 138 135 - 145 mmol/L Potassium 4.0 3.5 - 5.0 mmol/L Chloride 100 98 - 107 mmol/L CO2 24 22 - 31 mmol/L Anion Gap 14 5 - 15 mmol/L Calcium 10.1 8.5 - 10.5 mg/dL Estimated GFR 101 >=60 mL/min/1.73 m?? Hepatic Function Panel Result Value Ref Range Total Protein 8.5 (H) 6.1 - 8.0 gm/dL Albumin 4.3 3.2 - 5.2 gm/dL AST 13 0 - 39 unit/L ALT 12 0 - 55 unit/L Alk Phos 77 40 - 130 unit/L Total Bilirubin 0.4 0.2 - 1.3 mg/dL Bili, Direct 0.1 0.0 - 0.3 mg/dL Hemogram Result Value Ref Range WBC 15.4 (H) 4.0 - 9.5 x10(3)/mcL RBC 4.48 (L) 4.58 - 5.54 x10(6)/mcL Hemoglobin 13.2 (L) 13.7 - 16.5 gm/dL Hematocrit 41.2 40.5 - 48.5 % MCV 92.0 82.9 - 93.1 fL MCH 29.5 27.5 - 32.1 pg MCHC 32.0 32.0 - 35.7 gm/dL Platelets 387 (H) 145 - 357 x10(3)/mcL RDWSD 42.7 36.0 - 45.0 fL RDWCV 12.6 11.4 - 13.8 % MPV 10.4 7.6 - 12.9 fL nRBC % Auto 0.0 % nRBC Abs Auto 0.000 0.000 - 0.000 x10(3)/mcL Differential, Automated Result Value Ref Range Neutrophils % 72.8 % Neutr Abs (ANC) 11.25 (H) 1 - 6 x10(3)/mcL Lymphocytes % 13.7 % Lymphocytes Abs 2.1 0.9 - 3.2 x10(3)/mcL Monocytes % 10.8 % Monocyte Abs 1.7 (H) 0.3 - 0.9 x10(3)/mcL Eosinophils % 1.6 % Eosinophils Abs 0.2 0.0 - 0.4 x10(3)/mcL Basophils % 0.7 % Basophils Abs 0.1 0.0 - 0.1 x10(3)/mcL Immature Gran % 0.40 % Teena Gran Abs 0.06 (H) 0.00 - 0.04 x10(3)/mcL Gold Tube HOLD Result Value Ref Range Gold Hold Sample in lab. Scan, Peripheral Blood Result Value Ref Range Plat Estimate Increased RBC Morphology Normal Rapid Drug Screen, Urine (DAR Request) Result Value Ref Range DAR Conf Requested No DAR Requested See Comment Rapid Drug Screen w/o Confirmation, Urine Result Value Ref Range U Barbiturates Screen None Detected None Detected U Benzodiazepines Screen None Detected None Detected U Cocaine Screen None Detected None Detected U Methadone Metabolites Screen None Detected None Detected U Opiate Screen None Detected None Detected U Cannabinoid Screen Presumptive Pos (A) None Detected U Oxycodone Screen None Detected None Detected U Buprenorphine Screen Presumptive Pos (A) None Detected U Fentanyl Screen None Detected None Detected U Tricyclics Screen None Detected None Detected U Ethanol Screen None Detected None Detected U Amphetamines Screen None Detected None Detected U Adulterants Screen None Detected None Detected - I have reviewed the imaging, which is significant for: CT Neck Soft Tissue w Contrast (Generic) Final Result 1. Large right lower neck abscess with 2 linear radiopaque foreign bodies at the anterior and lateral base of the collection and extensive surrounding soft tissue inflammation and cervical adenopathy. 2. Associated mass effect with decreased/asymmetric enhancement of the right jugular vein compared to the left. No definite thrombosis to suggest associated thrombophlebitis. Thank you for letting us participate in the care of this patient. If you are a health care provider and have any questions regarding this report, please contact the number below. For patients who have questions please contact the health career transition specialist that requested your imaging first. Assessment and Plan: MDM: Harvey Espinosa is a 40 y.o. male with a PMH significant for schizoaffective disorder, IV drug use currently on Suboxone who presents to the Emergency Department with complaints of a neck mass. Patient present hemodynamically stable and no signs of any distress. Patient has a large right anterior neck mass that is concerning for an intramuscular abscess. The patient is an IV drug user has recently injecting into his right neck. The patient was not systemically ill appearing. He had no evidence of airway compromise or inability to swallow. He was evaluated by ENT who felt the patient needed to be taken to the OR for washout and foreign body removal. Plan: - Admit to ENT for OR Jairo Pickett MD EM Resident, PGY-3 01/10/21 10:45 PM Jairo Pickett MD Resident 01/10/21 2240 Associated attestation - Bee Malone MD - 01/16/2021 9:38 AM EDT ED ATTENDING ATTESTATION NOTE The patient was seen in conjunction with the resident physician. I have independently performed thekey portions of the history and physical exam. I have reviewed the nursing notes, vital signs, and all diagnostic studies personally including labs, imaging studies and EKGs. I have discussed the details of the case with the resident and agree with the assessment and plan as described in the resident note unless noted otherwise. Final Assessment: Neck abscess documented in this encounter Miscellaneous Notes * Consult Note - Gonzales Wolfe APRN - 01/13/2021 12:26 PM EDT BIT Evaluation Referral source: Admission screening and as follow-up to BIT evaluation on a previous admission - see note from 12/11/2015. Reason for referral: Alcohol Use Disorder Opioid Use Disorder. Medication-Assisted Treatment Plan Was patient offered MOUD: No. Reason MOUD not offered?: On MAT prior to admission. Buprenorphine Relevant history: Mr. 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 Mr. Espinosa's SO was present for evaluation per patient request. Mr. Espinosa is A&Ox4, pleasant, and cooperative, reports his mood as irritable, I just want togo home, no apparent signs or symptoms of alcohol withdrawal at this time, denies opioid withdrawal symptoms or craving - getting outpatient dose Suboxone 8 mg twice daily, endorses AH as baseline and non-intrusive, denies VH, denies SI/HI, denies any active PTSD symptoms and reports being stable psychiatrically with medications managed by his PCP. Mr. Espinosa reports being abstinent from IVDU for about 7 years with the clinical support of IV drug use currently on Suboxone at [facility], with stablility on his current dose Suboxone 8 mg twice daily, and plans to continue. He reports that a recent relapse (injecting water) was an adaptive coping response to acute stress and he regrets his actions. Mr. Espinosa reports drinking four hard iced teas per day prior to this admission. He reports that he has cut-back on his drinking in the past with the clinical support of outpatient counseling and heplans to do this again with his current therapist - additional substance use treatment and relapse prevention resources were given and placed in his discharge instructions. Assessment: Mr. Espinosa is a 40-year-old man admitted with a right anterior neck mass after injecting tap water. 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 Currently without apparent signs or symptoms of alcohol withdrawal and denies opioid withdrawal symptoms or craving - getting outpatient dose Suboxone 8 mg twice daily, no acute safety concerns. Motivated to remain abstinent from IVDU with the ongoing clinical support of Suboxone assisted therapy at [facility]. Motivated to cut-back on his alcohol use with the ongoing clinical support of outpatient counseling at [facility]. Interventions delivered: Consulted with care team Plan: 1. Patient plans to remain abstinent from IVDU with the ongoing clinical support of Suboxone assisted therapy at [facility]. 2. Patient plans to cut-back on his alcohol use with the ongoing clinical support of outpatient counseling at [facility]. Outstanding Discharge Needs: Patient reports that he has a current prescription and adequate supply of Suboxone to bridge to hisnext MAT appointment. Time spent with the patient (min):30 minutes Time spent on case coordination (min): 15 minutes * Plan of Care - Jason Vega RN - 01/13/2021 4:32 AM EDT OUTCOME EVALUATION NOTE: OUTCOME SUMMARY: Pt A+Ox4, VSS, on RA. Pt independent in the room, IV ABX, pain well controlled with tylenol. Sera putting out scant drainage, changed once during nightshift. Pain looking forwards to hopefully discharging today, just waiting on cultures to result for more specific antibiotics. PLAN MOVING FORWARD: IV ABX. Pain control. Wound care/monitoring. D/C planning. INDIVIDUALIZED FALL PREVENTION INTERVENTIONS: Patient-specific fall risk factors per assessment: [current deficits]: IV line. Assistance [level of assistance required for transfers and ambulation]: Ind. Supervision [direct monitoring required during toileting and ADLs]: Ind. Surveillance [continuous indirect monitoring]: Hourly rounding. Patient-specific fall prevention interventions for sensory deficits provided, if applicable: [X] Yes, assistance with ADLs. CPG GOAL OUTCOME EVALUATION: * Plan of Care - Bea Frost RN - 01/12/2021 5:22 PM EDT OUTCOME EVALUATION NOTE: OUTCOME SUMMARY: Pt is A+Ox4, VSS on RA. Tolerating regular diet. Voiding in bathroom. 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 Order to get up and ambulate independently. Continuing with vancomycin and cefepime. Serosanguineous and yellow drainage from [place], gauze changed x2 this shift. Pain to right neck has been adequately controlled with scheduled tylenol, pt rates pain at 2-3/10. Life partner Luzmaria remains at bedside. PLAN MOVING FORWARD: IV antibiotics, await culture results Pain control Wound care/drain care DC planning INDIVIDUALIZED FALL PREVENTION INTERVENTIONS: Patient-specific fall risk factors per assessment: [current deficits]: Pain and meds, lines/tubes, hospital environment Assistance [level of assistance required for transfers and ambulation]: independent Supervision [direct monitoring required during toileting and ADLs]: independent Surveillance [continuous indirect monitoring]: Masimo, hourly rounding Patient-specific fall prevention interventions for sensory deficits provided, if applicable: [X] N/A CPG GOAL OUTCOME EVALUATION: * Initial Assessments - RadhaBeverly KadieSOLEDAD Coto - 01/12/2021 10:18 AM EDT Office of Care Management Initial Assessment SOLEDAD Schrader reviewed record and discussed patient with Care Team. Source of Information: Team, bedside nurse, medical record, and Patient, Significant Other This blog writer introduced self/reviewed role; services accepted. Reason for Hospitalization: Pain to right side of neck. Last COVID test: Past medical History: Past Medical History: Diagnosis Date ??? Bipolar 1 disorder ??? Cellulitis of hand 12/09/2015 ??? Injury, superficial, hand with infection 12/10/2015 Hospitalizations Within the Past 30 Days: no previous admission in last 30 days Current Decision-Making Capacity: Self Advance Care Planning: Attempt Cardiopulmonary Resuscitation - Inpatient <no information> -Advanced Directive: Other (Pt and his life partner Luzmaria have talked about, but nothing written. Pt declind at first until reviewed surrogacy laws. Patient completed [place] Appointment of HC Agent). Patient appointed his life partner (of 19 yrs) Luzmaria Vegas as primary DPOAHC and his [id number] Juan Vegas. Copies made and provided. A copy will be scanned into patient's chart. Current Coping/Education/Information Needs: Patient reports he wants to go home, but coping alrightand feels his pain level is good/controlled. Provider entered room to give pt and Luzmaria an update and discuss next steps. Current Functional Ability: Independent Functional Status Prior to Admission: Independent, Patient Drives Self Home Environment: People in home: child(blayne), dependent, significant other (Lives with their son and his GF (parttime) and a son they have guardianship over). Current Living Arrangements: home/apartment/condo. Accessibility Concerns:None. Current DME: none Home Address: [address] [place] [id number] Social & Family Supports: Patient reports he Luzmaria is main support and provides emotional support d/t his mental health that always with him. Patient reports other family members are also supportive. Current Care Provided by: self, spouse/significant other Provides Primary Care For: child(blayne) Caregiver if needed: significant other Quality of Family relationships: helpful, involved, supportive Community Resources being provided currently: outpatient psychiatric care (Pt reports he has used resources before and aware how to access should need arise.) Behavioral Health History: PMHx of significant bipolar disorder, schizoaffective disorder, and PTSD. Patient is followed by [facility] (therapy and maybe psychiatrist for medications? Provider came in). Patient reports he feels his mood is stable right now, but it wasn't before admission. Patient takes medications. Patient identifies playing golf, basketball, and yard work/weed whacking as coping mechanisms. Substance Use/Abuse: Patient confirms he smokes 2ppd of cigarettes and also smokes marijuana. Patient reports he drinks 4 drinks a day. He denies hx of alcohol withdrawal. 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 Patient informed provider at admission that a week ago he relapsed on injection practices in which he injects non-sterile water into his R side of neck. Patient reports he will use this admission as a lesson. Patient is on suboxone (monthly scripts) by [facility]. Social History Tobacco Use Smoking Status Current Every Day Smoker ??? Types: Cigarettes In the past year have you used an illegal drug or used a prescription medication for non-medical reaons?: No 0 No problems reported 1-2 Low level 3-5 Moderate level 6-8 Substantial level 9- 10 Severe level In the past year have you had 5 or more drinks a day containing alcohol?: Yes Audit Score (Male): 4 0 to 7 points: Low risk 8 to 15 points: Medium risk 16 to 19 points: High risk 20 to 40 points: Addiction likely Other Pertinent/Service Specific Information: N/A Health/Prescription Coverage: Primary Insurance: [place] Pay[place] / Plan[place] / Product Type: *No Product type* / Secondary Insurance: N/A Prescription Coverage: Yes Preferred Pharmacy: [id number] - [place], [place] - [address] [facility] [address] [facility] [address] [place] [address] [place] Status: Patient is a : unable to assess Primary Care Provider: Laura Ho MD [phone] Patient/Caregiver Goals of Treatment: To go home and use this as a lesson. Potential Needs for Transition of Care: mental health services, substance abuse services (Patient is [facility] for his [facility]oxone.) Agency Referrals: None Transportation: no concerns Transportation Anticipated: family or friend will provide Concerns to be Addressed: coping/stress. Pt and Luzmaria report there was an exception for her to staywith him overnight d/t his significant mental health during his last hospitalizations. She reports this hasn't been an issue before and she has been sleeping out in waiting room bench which she knew would provide patient some comfort to know she was close. Patient also confirmed. [employer] REPAIRMEN spoke with bedside RN and Charge. Will see about moving patient to a private (which would help per pt and partner Luzmaria), but she cannot spend the night. [employer] EQU[employer]MENT REPAIRMEN left bedside RN information on [facility] pending if patient remains inpatient longer (may dc today). Patient has been behaving appropriately per staff likely more to do with Luzmaria being at bedside until late in evening. Assessment: Patient is admitted to ENT service for a large right neck abscess secondary to injection of water. Patient on 2 IVABX (risk factors for MRSA, cultures are pending). Pt is s/p I&D of abscess. TBD if patient will be discharged on oral ABX or IVABX. Plan: [employer] REPAIRMEN assisted patient with appointment of HC Agent form. [employer] EQUIPMENT REPAIRMEN to provide patient with Last Doseletter. E[employer] EQUIPMENT REPAIRMEN provided bedside RN with information about [facility] should patientremain inpatient longer and to provide to his life partner Luzmaria. It will be beneficial for Luzmaria to be as close as possible to patient as it does provide him comfort. A member of the Care Management team will continue to monitor progress, follow for continuity of care and assist with transition of care planning. SOLEDAD [facility] [employer]r Phone: [phone] Pager: [phone] * Plan of Care - Bea Frost RN - 01/11/2021 6:48 PM EDT OUTCOME EVALUATION NOTE: OUTCOME SUMMARY: Pt is A+Ox4, VSS on RA, nydia to upper 40's at times. [place] to right neck with gauze and sleeve covering, steristrips intact to neck. Tolerating regular diet. Voiding in bathroom. Pain to neck has been fairly controlled with scheduled meds. Pt requested additional dose of toradol as well as higher dose of nicotine patch and addition of nicotine gum-request sent to ENT brand protection manager via Securechat. Pthas independent to ambulate order. PLAN MOVING FORWARD: Pain control IV abx Mobilize Maintain drain and dressing changes to neck DC planning INDIVIDUALIZED FALL PREVENTION INTERVENTIONS: Patient-specific fall risk factors per assessment: [current deficits]: Pain and meds, lines/tubes, hospital environment Assistance [level of assistance required for transfers and ambulation]: independent Supervision [direct monitoring required during toileting and ADLs]: independent Surveillance [continuous indirect monitoring]: Masimo, hourly rounding Patient-specific fall prevention interventions for sensory deficits provided, if applicable: [X] N/A CPG GOAL OUTCOME EVALUATION: * Consult Note - Harvey Gonzalez [facility] - 01/11/2021 4:02 AM EDT Clinical Pharmacist Note - VancFD Harvey Espinosa [id number] Harvey Espinosa is a 40 y.o. male who is starting antibiotic therapy which includes intravenous vancomycin. Based on a review of the patient???s chart and/or conversation with the patient???s providers vancomycin is being used for empiric coverage of SSTI infection with a targeted goal of 10 - 15 mcg/mL. The following Pharmacokinetic data has been evaluated: Wt Readings from Last 1 Encounters: 01/10/21 81.6 kg (179 lb 14.4 oz) Ht Readings from Last 1 Encounters: 01/10/21 188 cm (6' 2) Labs: Creatinine clearance: Creatinine (mg/dL) Date Value 01/10/2021 0.93 Dosing recommendations: ??? Patient s/p abscess drainage. Hx MRSA and distant IV drug use. Will load with vancomycin 2000 mg IV x1 and continue vancomycin 1000 mg IV q 8 hours. Trough prior to 4th dose 01/12 @1130. We will continue to monitor the patient as long as he remains on vancomycin therapy. Thank you for this consult and please page the care area pharmacist with any questions you may have. Alternately, during off-hours (9p-) you may call [phone] to contact a pharmacist. Harvey Gonzalez RPH * Op Note - Rusty Gong MD - 01/11/2021 12:58 AM EDT [facility] Operative Note Patient Name: Harvey Espinosa : [id number] MR#: [id number] Case Date: 01/10/2021 - 01/11/2021 Surgeon: Surgeon(s) and Role: * Rusty Gong MD - Primary * Kyle Still MD - Resident Preoperative diagnosis: Neck abscess Postoperative diagnosis: Neck abscess Procedure(s) (LRB): I & D DEEP ABSCESS OR HEMATOMA, NECK (WRVU 3.98) (Right)-COMPLEX Findings: Large neck abscess largely contained deep to the SCM with multiple loculations. Superficial needle fragment localized with ultrasound, but unable to be identified intraoperatively despite neck exploration. Anesthesia: General Estimated Blood Loss: 10 mL Specimens removed during surgery: * No orders in the log * Drains: 1/2 sera drain x2 Surgical Closure: Primary Closure - skin incision is closed but with open spaces for wires, naida, drains or other devices Disposition: awakened from anesthesia, extubated and taken to the recovery room in a stable condition, having suffered no apparent untoward event. Condition: doing well without problems (Please see the Surgical Encounter Summary for any Implant and Specimen details pertinent to this patient.) HPI/Surgical Indications: 40 yo man who presented with a large deep neck abscess in need of surgical drainage. Procedure Description: The patient was transported to the OR where he was correctly identified and properly positioned on the OR table. General anesthesia was then induced without complication. The patient was then turned over to ENT and a time out was performed. Using an ultrasound probe the smallsuperficial needle fragment was identified medial to the fluctuant portion of the abscess. The location of the needle was marked with a pen and then a planned incision was planned and injected with lidocaine and epinephrine. The patient was then prepped and draped in the usual sterile fashion. Using a 15 blade the skin was incised in the subplatysmal plane. We then began a careful dissectionin the region of the needle fragments but were unable to locate it. We then placed a sterile sleeveover the ultrasound probe and again attempted to identify it. This proved more difficulty to the partially dissected nature of the tissues, although we felt that we could approximate it to some degree. We continued our dissection but were unable to locate the needle fragment and abandoned this course of action as the needle was outside of the abscess, and according to the patient had been presentin his neck for 3 years. We then used blunt dissection to enter the abscess pocket. A swab was usedto gain a sample of the purulent fluid which was sent for microbiology. We then expanded the opening into the abscess pocket and expressed the purulent fluid. Using peanuts on a Malka clamp the abscess pocket was opened broadly. We initially used the peanuts given the presence of needle fragments in the neck. After largely opening the abscess pocket we used finger dissection to confirm lysis of multiple loculations after having donned a Kevlar glove. The abscess pocket was then thoroughly irrigated with saline until clear. Half inch Sera drains were then inserted superiorly and inferiorly into the pocket and then sutured to the skin with 2-0 Prolene suture. A portion of the incision was then closed using 3-0 Vicryl and 2-0 Prolene. At the conclusion of the case the patient was turned back to anesthesia. The patient's emergence from anesthesia was without complication and he was transported to the recovery area where he was doing well at the time of handoff. All counts were correct at the end of the case. Infection Bundle used? N/A Kyle Still MD PGY-4 [facility] Otolaryngology Pager: [phone] Attestation: Case Date: 01/10/2021 - 01/11/2021 I was present and I participated during the entire procedure (does not need to include opening and closing). RUSTY GONG MD 01/12/2021 * ED Triage - Antonette Welsh RN - 01/10/2021 2:40 PM EDT HPI (Adult) Stated Reason for Visit: pt with head strike 4 days ago, headache and nausea, abscess to right neckwith tracheal deviation, trouble swallowing, no trouble breathing, pt has been drug free for over 7years, needle addiction relapse, only uses water (unsterile). History Obtained From: patient Precipitating Event(s): none Onset of Symptoms: worsening Duration (Weeks): 1 documented in this encounter Plan of Treatment Not on file documented as of this encounter Procedures Procedure Name Priority Date/Time Associated Diagnosis Comments HC VENIPUNCTURE STAT 01/13/2021 10:38 AM EDT HEMOGRAM Routine 01/13/2021 3:45 AM EDT DIFFERENTIAL, AUTOMATED Routine 01/13/2021 3:45 AM EDT HC CBC,PLT & AUTO DIFF Routine 01/13/2021 3:45 AM EDT HC VANCOMYCIN Timed 01/12/2021 12:08 PM EDT HEMOGRAM Routine 01/12/2021 6:32 AM EDT DIFFERENTIAL, AUTOMATED Routine 01/12/2021 6:32 AM EDT HC CBC,PLT & AUTO DIFF Routine 01/12/2021 6:32 AM EDT I & D DEEP ABSCESS OR HEMATOMA, NECK Routine 01/11/2021 12:06 AM EDT ANAEROBIC CULTURE STAT 01/10/2021 11: 30 PM EDT HC WOUND/ABSCESS CX STAT 01/10/2021 1 1:30 PM EDT ABSCESS/WOUND ASPIRATE CULTURE STAT 01/10/2021 11:30 PM EDT HC FUNGUS CULTURE, MISC SOURCE Routine 01/10/2021 11:30 PM EDT I&D Deep Abscess Or Hematoma Soft Tissue Neck Or Thorax (35856) 01/10/2021 10:42 PM EDT Neck abscess RAPID DRUG SCREEN, URINE STAT 01/10/2021 8:47 PM EDT RAPID DRUG SCREEN W/O CONFIRMATION, URINE STAT 01/10/2021 8:[address] NECK SOFT TISSUE W CONTRAST STAT 01/10/2021 7:30 PM EDT HC BLOOD CULTURE- STAT 01/10/2021 4:2 5 PM EDT HC BLOOD CULTURE- STAT 01/10/2021 3:3 8 PM EDT SCAN, PERIPHERAL BLOOD STAT 01/10/2021 3:36 PM EDT HEMOGRAM STAT 01/10/2021 3:36 PM EDT DIFFERENTIAL, AUTOMATED STAT 01/10/2021 3:36 PM EDT GOLD TUBE HOLD STAT 01/10/2021 3:36 PM EDT HC CBC,PLT & AUTO DIFF STAT 01/10/2021 3:36 PM EDT HEPATIC FUNCTION PANEL STAT 01/10/2021 3:36 PM EDT BASIC METABOLIC PANEL STAT 01/10/2021 3:36 PM EDT documented in this encounter Results * (ABNORMAL) Basic Metabolic Panel (non-fasting) (01/13/2021 10:38 AM EDT) [facility] Signature Glucose 80 65 - 199 mg/dL [facility] Comment:Diabetes: >=200 mg/d L plus symptoms Blood Urea Nitrogen 9(L) 10 - 20 mg/dL [facility] Creatinine 1.05 0.80 - 1.50 mg/dL [facility] Sodium 137 135 - 145 mmol/L [facility] Potassium 4.1 3.5 - 5.0 mmol/L [facility] Comment: Please note: ??Patients with WBC >100,000 may have falsely elevated Potassium levels. ??For accurate Potassium quantification in these patients send serum separator tube (gold top) for subsequent determinations. ??Contact the Clinical Chemistry Laboratory if there are any questions. Chloride 102 98 - 107 mmol/L [facility] Carbon Dioxide 29 22 - 31 mmol/L [facility] Anion Gap 6 5 - 15 mmol/L [facility] Calcium 10.2 8.5 - 10.5 mg/dL [facility] Est Glomerular Filtration Rate 87 >=60 mL/min/1. 73 m?? [facility] Comment: This patient? s estimated glomerular filtration rate (eGFR) is between 87 mL/min/1.73 m2 (patients with less muscle mass per kg body weight) and 101 mL/min/1.73 m2 (patients with more muscle mass per kg body weight) as determined by the CKD-EPI equation. Assessment of eGFR is not appropriate when creatinine concentrations are rapidly changing. For clinical decisions where creatinine clearance will affect therapy, a 24-hour urine creatinine clearance may be advised. Assignment of CKD stage 1 - 5 for patients with an eGFR near the transition point between stages may be based on clinical assessment of muscle mass and symptoms in addition to eGFR. Blood 01/13/2021 10:3 8 AM EDT 01/13/2021 11:19 AM EDT Narrative Resulting Agency Comment Spec In Lab Rusty Gong MD CHEMISTRY ORDERABLE S [facility] [place] [address] * (ABNORMAL) Differential, Automated (01/13/2021 3:45 AM EDT) Neutrophil % 46.7 % [facility] Neutrophil Absolute 3.07 1.70 - 6.10 x10(3)/[facility] Lymph % 34.2 % [facility] Lymphocytes Abs 2.2 0.9 - 3.2 x10(3)/[facility] Monocyte % 7.5 % [facility] Monocyte Abs 0.5 0.3 - 0.9 x10(3)/[facility] Eos % 9.9 % [facility] Eosinophils Abs 0.6(H) 0.0 - 0.4 x10(3)/[facility] Basophil % 1.4 % [facility] Baso Absolute 0.1 0.0 - 0.1 x10(3)/[facility] Immature Gran % 0.30 % [facility] Comment: Immature granulocytes(IG's)percentage and absolute count will include metamyelocytes, myelocytes, and promyelocytes. Blood smears from CBCs yielding IG's will be scanned manually for concordance. If this scan disagrees with the automated IG or if promyelocytes are noted, a manual differential will be performed. Immature Gran Absolute 0.02 0.00 - 0.04 x10(3)/[facility] Blood 01/13/2021 3:45 AM EDT 01/13/2021 4:22 AM EDT Narrative Resulting Agency Comment Spec In Lab Kyle Still MD HEMATOLOGY ORDERAB LES [facility] [place] [address] * (ABNORMAL) Hemogram (01/13/2021 3:45 AM EDT) White Blood Cell 6.6 4.0 - 9.5 x10(3)/[facility] Red Blood Cell 4.46(L) 4.58 - 5.54 x10(6)/mc L [facility] Hemoglobin 12.9(L) 13.7 - 16.5 gm/dL [facility] Hematocrit 40.7 40.5 - 48.5 % [facility] Mean Cell Volume 91.3 82.9 - 93.1 fL [facility] Mean Cell Hemoglobin 28.9 27.5 - 32.1 pg [facility] Mean Cell Hemoglobin Concentration 31.7(L) 32.0 - 35.7 gm/dL [facility] Platelet 409(H) 145 - 357 x10(3)/mc L [facility] RDW Standard Deviation 40.9 36.0 - 45.0 [facility] RDW coefficient of variation 12.2 11.4 - 13.8 % [facility] Mean Platelet Volume 10.1 7.6 - 12.9 [facility] NRBC% auto 0.0 % [facility] NRBC Absolute 0.000 0.000 - 0.000 x10(3)/mc L [facility] Blood 01/13/2021 3:45 AM EDT 01/13/2021 4:22 AM EDT Narrative Resulting Agency Comment Spec In Lab Kyle Still MD HEMATOLOGY ORDERAB LES Performing Organization Address City/State/[facility] Co de Phone Number [facility] [place] [address] * Vancomycin, trough (01/12/2021 12:08 PM EDT) Vancomycin, Trough 8.5 mg/L [facility] Comment: Therapeutic range for complicated infections such as bacteremia, endocarditis, osteomyelitis, meningitis, and hospital-acquired pneumonia caused by S. aureus: 15-20 mg/L Therapeutic range for other indications: 10-15 mg/L Toxic: >20 mg/L Reference: Vancomycin Therapeutic Monitoring: Review and Recommendations from the ASHP, IDSA and SIDP Task Force. ??Am J Health-Syst Pharm. 2009; 66:82-98 Blood 01/12/2021 12:0 8 PM EDT 01/12/2021 12:32 PM EDT Narrative Resulting Agency Comment Spec In Lab Rusty Gong MD CHEMISTRY ORDERABLE S [facility] [place] [address] * (ABNORMAL) Differential, Automated (01/12/2021 6:32 AM EDT) Neutrophil % 44.6 % [facility] Neutrophil Absolute 2.97 1.70 - 6.10 x10(3)/mc L [facility] Lymph % 34.5 % [facility] Lymphocytes Abs 2.3 0.9 - 3.2 x10(3)/mc L [facility] Monocyte % 9.6 % [facility] Monocyte Abs 0.6 0.3 - 0.9 x10(3)/mc L [facility] Eos % 9.6 % [facility] Eosinophils Abs 0.6(H) 0.0 - 0.4 x10(3)/mc L [facility] Basophil % 1.3 % [facility] Baso Absolute 0.1 0.0 - 0.1 x10(3)/mc L [facility] Immature Gran % 0.40 % [facility] Comment: Immature granulocytes(IG's)percentage and absolute count will include metamyelocytes, myelocytes, and promyelocytes. Blood smears from CBCs yielding IG's will be scanned manually for concordance. If this scan disagrees with the automated IG or if promyelocytes are noted, a manual differential will be performed. Immature Gran Absolute 0.03 0.00 - 0.04 x10(3)/mc L [facility] Blood 01/12/2021 6:32 AM EDT 01/12/2021 6:45 AM EDT Narrative Resulting Agency Comment Spec In Lab Kyle Still MD HEMATOLOGY ORDERAB LES [facility] [place] [address] * (ABNORMAL) Hemogram (01/12/2021 6:32 AM EDT) White Blood Cell 6.7 4.0 - 9.5 x10(3)/mc L [facility] Red Blood Cell 4.54(L) 4.58 - 5.54 x10(6)/mc L [facility] Hemoglobin 13.2(L) 13.7 - 16.5 gm/dL [facility] Hematocrit 42.6 40.5 - 48.5 % [facility] Mean Cell Volume 93.8(H) 82.9 - 93.1 [facility] Mean Cell Hemoglobin 29.1 27.5 - 32.1 [facility] Mean Cell Hemoglobin Concentration 31.0(L) 32.0 - 35.7 gm/dL [facility] Platelet 413(H) 145 - 357 x10(3)/mc L [facility] RDW Standard Deviation 44.1 36.0 - 45.0 [facility] RDW coefficient of variation 12.7 11.4 - 13.8 % [facility] Mean Platelet Volume 10.3 7.6 - 12.9 [facility] NRBC% auto 0.0 % [facility] NRBC Absolute 0.000 0.000 - 0.000 x10(3)/[facility] Blood 01/12/2021 6:32 AM EDT 01/12/2021 6:45 AM EDT Narrative Resulting Agency Comment Spec In Lab Kyle Still MD HEMATOLOGY ORDERAB LES [facility] [place] [address] * Anaerobic Culture (01/10/2021 11:30 PM EDT) Anaerobic Culture No anaerobic organisms isolated [facility] Abscess NECK STRUCTURE / Unknown 01/10/2021 11:30 PM EDT 01/11/2021 12:28 AM EDT Comment:GRAM STAIN PLEASE Narrative Resulting Agency Comment Spec In Lab Rusty Gong MD MICROBIOLOGY - [facility] ORDERABLES [facility] [place] [address] * (ABNORMAL) Abscess/Wound Aspirate Culture (01/10/2021 11:30 PM EDT) Abscess/Wound Aspirate Culture Moderate Streptococcus pneumoniae(A) [facility] Gram Stain Many Neutrophils seen Many Gram Positive Cocci seen (A) [facility] Organism Streptococcus pneumoniae(A) [facility] Organism Gram Positive Cocci(A) [facility] Abscess NECK STRUCTURE / Unknown 01/10/2021 11:30 PM EDT 01/11/2021 12:28 AM EDT Comment:GRAM STAIN PLEASE Narrative Resulting Agency Comment Spec In Lab Organism Antibiotic Method Susceptibility Streptococcus pneumoniae Azithromycin MICROSCAN METHOD Sensitive Streptococcus pneumoniae Ceftriaxone (Meningitis) MICR OSCAN METHOD Sensitive Streptococcus pneumoniae Ceftriaxone (Nonmeningitis) M ICROSCAN METHOD Sensitive Streptococcus pneumoniae Cefuroxime MICROSCAN METHOD Sensitive Streptococcus pneumoniae Levofloxacin MICROSCAN METHOD Sensitive Streptococcus pneumoniae Meropenem MICROSCAN METHOD Sensitive Streptococcus pneumoniae Penicillin (Meningitis) MICRO SCAN METHOD Sensitive Streptococcus pneumoniae Penicillin (Nonmeningitis) MT CROSCAN METHOD Sensitive Comment: Penicillin susceptibility predicts susceptibility to Ampicillin, Ampicillin-Sulbactam, Amoxicillin, Amoxicillin-Clavulanate, Cefepime, Cefpodoxime, Cefprozil, Cefuroxime, Ceftriaxone and Meropenem. Streptococcus pneumoniae Tetracycline MICROSCAN METHOD Resistant Streptococcus pneumoniae Trimethoprim/Sulfa MICROSCAN METHOD Sensitive Streptococcus pneumoniae Vancomycin MICROSCAN METHOD Sensitive Rusty Gong MD MICROBIOLOGY - GENE RAL ORDERABLES Performing Organization Address City/[facility] Hill/ZIP Co de Phone Number [facility] [place] [address] * Fungus culture Abscess (01/10/2021 11:30 PM EDT) Fungus Culture No Fungus isolated [facility] Abscess 01/10/2021 11:3 0 PM EDT 01/11/2021 12:28 AM EDT Comment:RIGHT NECK ABSCESS Narrative Resulting Agency Comment Spec In Lab Rusty Gong MD MICROBIOLOGY - GENE Huaat ORDERABLES Performing Organization Address [facility] Co de Phone Number [facility] [place] [address] * (ABNORMAL) Rapid Drug Screen w/o Confirmation, Urine (01/10/2021 8:47 PM EDT) Barbiturates Screen, Urine None Detected None Detected [facility] Comment: The barbiturate screen detects barbiturates at concentrations >200 ng/mL. Note: Not all barbiturates cross-react equally with antibody used in this screen. A ? Presumptive Positive? result indicates that the screening result was positive but has not yet been confirmed by a highly-specific method. As with any screen, occasional false positive results from cross-reacting substances may occur. Not for Medico-Legal Purposes. Benzodiazepines Screen, Urine None Detected None Detected [facility] Comment: The benzodiazepines screen detects benzodiazepines at concentrations >100 ng/mL. Not all benzodiazepines cross-react equally with antibody used in this screen. Due to the low dosage of clonazepam, false negatives may be obtained due to low concentration of clonazepam metabolites. A ? Presumptive Positive? result indicates that the screening result was positive but has not yet been confirmed by a highly-specific method. As with any screen, occasional false positive results from cross-reacting substances may occur. Not for Medico-Legal Purposes. Cocaine Screen, Urine None Detected None Detected [facility] Comment: The cocaine metabolites screen detects benzoylecgonine (Cocaine Metabolite) at concentrations >150 ng/mL. A ? Presumptive Positive? result indicates that the screening result was positive but has not yet been confirmed by a highly-specific method. As with any screen, occasional false positive results from cross-reacting substances may occur. Not for Medico-Legal Purposes. Methadone Metabolites Screen, Urine None Detected None Detected [facility] Comment: The methadone metabolite screen detects EDDP (major methadone metabolite) at concentrations >100 ng/mL. A ? Presumptive Positive? result indicates that the screening result was positive but has not yet been confirmed by a highly-specific method. As with any screen, occasional false positive results from cross-reacting substances may occur. Not for Medico-Legal Purposes. Opiate Screen, Urine None Detected None Detected [facility] Comment: The opiates screen detects opiates at concentrations >300 ng/mL. Please note that oxycodone, oxymorphone, fentanyl, tramadol, and other synthetic opioids are not detected by the opiate screen. A ? Presumptive Positive? result indicates that the screening result was positive but has not yet been confirmed by a highly-specific method. As with any screen, occasional false positive results from cross-reacting substances may occur. Not for Medico-Legal Purposes. Cannabinoid Screen, Urine Presumptive Pos(A) None Detected [facility] Comment: The marijuana metabolites screen detects the THC metabolite (76-khg-0-carboxy-delta 9-THC) at concentrations >20 ng/mL. A ? Presumptive Positive? result indicates that the screening result was positive but has not yet been confirmed by a highly-specific method. As with any screen, occasional false positive results from cross-reacting substances may occur. Not for Medico-Legal Purposes. Oxycodone Screen, Urine None Detected None Detected [facility] Comment: The oxycodone screen detects oxycodone and oxymorphone at concentrations >100 ng/mL. A ? Presumptive Positive? result indicates that the screening result was positive but has not yet been confirmed by a highly-specific method. As with any screen, occasional false positive results from cross-reacting substances may occur. Not for Medico-Legal Purposes. Buprenorphine Screen, Urine Presumptive Pos(A) None Detected [facility] Comment: The buprenorphine screen detects buprenorphine at concentrations >5 ng/mL. A ? Presumptive Positive? result indicates that the screening result was positive but has not yet been confirmed by a highly-specific method. As with any screen, occasional false positive results from cross-reacting substances may occur. Not for Medico-Legal Purposes. Fentanyl Screen, Urine None Detected None Detected [facility] Comment: The fentanyl screen detects fentanyl at concentrations >2 ng/mL. A ? Presumptive Positive? result indicates that the screening result was positive but has not yet been confirmed by a highly-specific method. As with any screen, occasional false positive results from cross-reacting substances may occur. Not for Medico-Legal Purposes. Tricyclics Screen, Urine None Detected None Detected [facility] Comment: The tricyclics screen detects tricyclic antidepressants at concentrations >150 ng/mL. Not all tricyclics cross-react equally with the antibody used in this screen. A ? Presumptive Positive? result indicates that the screening result was positive but has not yet been confirmed by a highly-specific method. As with any screen, occasional false positive results from cross-reacting substances may occur. Not for Medico-Legal Purposes. Ethanol Screen, Urine None Detected None Detected [facility] Comment:This urine ethanol a ssay detects ethanol at concentrations >/= 100 mg/L. Amphetamines Screen, Urine None Detected None Detected [facility] Comment: The amphetamine screen detects d-amphetamine and d-methamphetamine at concentrations >300 ng/mL. A ? Presumptive Positive? result indicates that the screening result was positive but has not yet been confirmed by a highly-specific method. As with any screen, occasional false positive results from cross-reacting substances may occur. Not for Medico-Legal Purposes. Adulterants Screen, Urine None Detected None Detected [facility] Comment: No adulteration or dilution of this urine sample was detected. All urine samples submitted for urine drugs of abuse analysis are tested for creatinine concentration, pH, and for the presence of oxidants, nitrites, and chromate. Urine 01/10/2021 8:47 PM EDT 01/10/2021 8:57 PM EDT Narrative Resulting Agency Comment Spec In Lab Jairo Pickett MD CHEMISTRY ORDERABLE S [facility] [place] [address] * Rapid Drug Screen, Urine (DAR Request) (01/10/2021 8:47 PM EDT) DAR Conf Requested No [facility] DAR Requested See Comment [facility] Comment:Refer to Rapid Drug Screen w/o Confirmation, Urine for results. Urine 01/10/2021 8:47 PM EDT 01/10/2021 8:57 PM EDT Narrative Resulting Agency Comment Spec In Lab Bee Malone MD URINE ORDERABLES [facility] [place] [address] * CT Neck Soft Tissue w Contrast (Generic) (01/10/2021 7:30 PM EDT) Anatomical Region Laterality Modality Neck, Head Computed Tomogra phy 01/10/2021 7:46 PM EDT Impressions 01/10/2021 7:58 PM EDT 1. ??Large right lower neck abscess with 2 linear radiopaque foreign bodies at the anterior and lateral base of the collection and extensive surrounding soft tissue inflammation and cervical adenopathy. 2. ??Associated mass effect with decreased/asymmetric enhancement of the right jugular vein compared to the left. No definite thrombosis to suggest associated thrombophlebitis. Thank you for letting us participate in the care of this patient. ??If you are a health care provider and have any questions regarding this report, please contact the number below. ??For patients who have questions please contact the health career transition specialist that requested your imaging first. ? Narrative 01/10/2021 7:58 PM EDT EXAMINATION: CT NECK SOFT TISSUE W CONTRAST (GENERIC) CLINICAL HISTORY: Neck mass, solitary, afebrile; Hx of IV drug use, large right anterior neck mass, non pulsatile TECHNIQUE: CT neck performed after the intravenous administration of contrast. Administered 110.0 ml of OMNIPAQUE 350.00 mg/ml. COMPARISON: None FINDINGS: Within the soft tissues of the right lower neck is a large roughly oval shaped irregular rim-enhancing collection that measures 7 cm in craniocaudal dimension and 5.4 x 4.2 cm in cross-section, (ap and width). The collection lies deep to and with apparent involvement of the right sternocleidomastoid muscles and is maxx-lateral to and ??abuts to the carotid sheath, with note made of posterior displacement, compression and slightly asymmetric enhancement of the right jugular vein compared to the left. No definite intraluminal venous thrombosis is identified. The adjacent right common carotid artery is patent. Mild mass effect on the right thyroid lobe. No mass effect on the pharynx or upper airway. There are two linear radiopaque foreign bodies adjacent to the collection, one in the anterior medial base of the collection in the oblique position, measuring up to 1.5 cm, best seen on coronal series 7 image 44. A second approximately 1.4 mm linear radiopaque foreign body is in a vertical position at the lateral base also best seen on coronal images, series 7 image 49. There is edema and stranding of the adjacent soft tissues as well as cervical lymphadenopathy that is most severe on the right. Of note, contrast injection for the study was acquired in the right upper extremity with well opacified right subclavian and brachiocephalic vein, with punctate nondependent locules of air within the vessels that are attributed to the contrast injection. Procedure Note Kassandra Dobbins MD - 01/10/2021 EXAMINATION: CT NECK SOFT TISSUE W CONTRAST (GENERIC) CLINICAL HISTORY: Neck mass, solitary, afebrile; Hx of IV drug use, largeright anterior neck mass, non pulsatile TECHNIQUE: CT neck performed after the intravenous administration of contrast.Administered 110.0 ml of OMNIPAQUE 350.00 mg/ml. COMPARISON: None FINDINGS: Within the soft tissues of the right lower neck is a large roughly ovalshaped irregular rim-enhancing collection that measures 7 cm in craniocaudaldimension and 5.4 x 4.2 cm in cross-section, (ap and width). The collection liesdeep to and with apparent involvement of the right sternocleidomastoid muscles andis maxx-lateral to and abuts to the carotid sheath, with note made ofposterior displacement, compression and slightly asymmetric enhancement of theright jugular vein compared to the left. No definite intraluminal venousthrombosis is identified. The adjacent right common carotid artery is patent. Mild masseffect on the right thyroid lobe. No mass effect on the pharynx or upper airway. There are two linear radiopaque foreign bodies adjacent to the collection,one in the anterior medial base of the collection in the oblique position,measuring up to 1.5 cm, best seen on coronal series 7 image 44. A secondapproximately 1.4 mm linear radiopaque foreign body is in a vertical position at the lateralbase also best seen on coronal images, series 7 image 49. There is edema and stranding of the adjacent soft tissues as well as cervical lymphadenopathythat is most severe on the right. Of note, contrast injection for the studywas acquired in the right upper extremity with well opacified right subclavianand brachiocephalic vein, with punctate nondependent locules of air withinthe vessels that are attributed to the contrast injection. IMPRESSION 1. Large right lower neck abscess with 2 linear radiopaque foreign bodiesat the anterior and lateral base of the collection and extensive surroundingsoft tissue inflammation and cervical adenopathy. 2. Associated mass effect with decreased/asymmetric enhancement of theright jugular vein compared to the left. No definite thrombosis to suggestassociated thrombophlebitis. Thank you for letting us participate in the care of this patient. If youare a health care provider and have any questions regarding this report,please contact the number below. For patients who have questions please contactthe health career transition specialist that requested your imaging first. Bee Malone MD IMG CT ORDERABLES * Blood culture (01/10/2021 4:25 PM EDT) Blood Culture No growth at 5 days. [facility] Blood PERIPHERAL BLOOD / Unknown 01/10/2021 4:25 PM EDT 01/10/2021 5:03 PM EDT Comment:#2 RIGHT Narrative Resulting Agency Comment Spec In Lab Bee Malone MD MICROBIOLOGY - BLOOD ORDERABLES Performing Organization Address City/[facility]/ZIP Co de Phone Number [facility] [place] [address] * Blood culture (01/10/2021 3:38 PM EDT) Blood Culture No growth at 5 days. [facility] Blood STRUCTURE OF RIGHT FOREARM / Unknown 01/10/2021 3:38 PM EDT 01/10/2021 3:58 PM EDT Comment:#1 Narrative Resulting Agency Comment Spec In Lab Bee Malone MD MICROBIOLOGY - BLOOD ORDERABLES Performing Organization Address City/[facility]/ZIP Co de Phone Number [facility] [place] [address] * Scan, Peripheral Blood (01/10/2021 3:36 PM EDT) Plat estimate Increased [facility] RBC Morphology Normal [facility] Blood 01/10/2021 3:36 PM EDT 01/10/2021 3:47 PM EDT Narrative Resulting Agency Comment Spec In Lab Jairo Pickett MD HEMATOLOGY ORDERABL ES Performing Organization Address City/[facility]/ZIP Co de Phone Number [facility] [place] [address] * Gold Tube HOLD (01/10/2021 3:36 PM EDT) Gold Hold Sample in lab. [facility] Blood Venous Draw / Unknown 01/10/2021 3:36 PM EDT 01/10/2021 3:38 PM EDT Jairo Pickett MD CHEMISTRY ORDERABLE S Performing Organization Address City/[facility]/ZIP Co de Phone Number [facility] [place] [address] * (ABNORMAL) Differential, Automated (01/10/2021 3:36 PM EDT) Neutrophil % 72.8 % [facility] Neutrophil Absolute 11.25(H) 1.70 - 6.10 x10(3)/mc L [facility] Lymph % 13.7 % [facility] Lymphocytes Abs 2.1 0.9 - 3.2 x10(3)/[facility] Monocyte % 10.8 % [facility] Monocyte Abs 1.7(H) 0.3 - 0.9 x10(3)/[facility] Eos % 1.6 % [facility] Eosinophils Abs 0.2 0.0 - 0.4 x10(3)/[facility] Basophil % 0.7 % [facility] Baso Absolute 0.1 0.0 - 0.1 x10(3)/[facility] Immature Gran % 0.40 % [facility] Comment: Immature granulocytes(IG's)percentage and absolute count will include metamyelocytes, myelocytes, and promyelocytes. Blood smears from CBCs yielding IG's will be scanned manually for concordance. If this scan disagrees with the automated IG or if promyelocytes are noted, a manual differential will be performed. Immature Gran Absolute 0.06(H) 0.00 - 0.04 x10(3)/ L [facility] Blood 01/10/2021 3:36 PM EDT 01/10/2021 3:38 PM EDT Narrative Resulting Agency Comment Spec In Lab Jairo Pickett MD HEMATOLOGY ORDERABL ES Performing Organization Address City/[facility]/ZIP Co de Phone Number [facility] [place] [address] * (ABNORMAL) Hemogram (01/10/2021 3:36 PM EDT) [facility] White Blood Cell 15.4(H) 4.0 - 9.5 x10(3)/[facility] Red Blood Cell 4.48(L) 4.58 - 5.54 x10(6)/[facility] Hemoglobin 13.2(L) 13.7 - 16.5 gm/dL [facility] Hematocrit 41.2 40.5 - 48.5 % [facility] Mean Cell Volume 92.0 82.9 - 93.1 fL [facility] Mean Cell Hemoglobin 29.5 27.5 - 32.1 pg [facility] Mean Cell Hemoglobin Concentration 32.0 32.0 - 35.7 gm/dL [facility] Platelet 387(H) 145 - 357 x10(3)/[facility] RDW Standard Deviation 42.7 36.0 - 45.0 [facility] RDW coefficient of variation 12.6 11.4 - 13.8 % [facility] Mean Platelet Volume 10.4 7.6 - 12.9 [facility] NRBC% auto 0.0 % [facility] NRBC Absolute 0.000 0.000 - 0.000 x10(3)/[facility] Blood 01/10/2021 3:36 PM EDT 01/10/2021 3:38 PM EDT Narrative Resulting Agency Comment Spec In Lab Jairo Pickett MD HEMATOLOGY ORDERABL ES [facility] [place] [address] * (ABNORMAL) Hepatic Function Panel (01/10/2021 3:36 PM EDT) [facility] Protein, Total 8.5(H) 6.1 - 8.0 gm/dL [facility] Albumin 4.3 3.2 - 5.2 gm/dL [facility] Aspartate Aminotransferase 13 0 - 39 unit/L [facility] Alanine Aminotransferase 12 0 - 55 unit/L [facility] Alkaline Phosphatase 77 40 - 130 unit/L [facility] Bilirubin, Total 0.4 0.2 - 1.3 mg/dL [facility] Bilirubin, Direct 0.1 0.0 - 0.3 mg/dL [facility] Blood 01/10/2021 3:36 PM EDT 01/10/2021 3:38 PM EDT Narrative Resulting Agency Comment Spec In Lab Bee Malone MD CHEMISTRY ORDERABLES [facility] [place] [address] * (ABNORMAL) Basic Metabolic Panel (non-fasting) (01/10/2021 3:36 PM EDT) Glucose 95 65 - 199 mg/dL [facility] Comment:Diabetes: >=200 mg/d L plus symptoms Blood Urea Nitrogen 8(L) 10 - 20 mg/dL [facility] Creatinine 0.93 0.80 - 1.50 mg/dL [facility] Sodium 138 135 - 145 mmol/L [facility] Potassium 4.0 3.5 - 5.0 mmol/L [facility] Comment: Please note: ??Patients with WBC >100,000 may have falsely elevated Potassium levels. ??For accurate Potassium quantification in these patients send serum separator tube (gold top) for subsequent determinations. ??Contact the Clinical Chemistry Laboratory if there are any questions. Chloride 100 98 - 107 mmol/L [facility] Carbon Dioxide 24 22 - 31 mmol/L [facility] Anion Gap 14 5 - 15 mmol/L [facility] Calcium 10.1 8.5 - 10.5 mg/dL [facility] Est Glomerular Filtration Rate 101 >=60 mL/min/1. 73 m?? [facility] Comment: This patient? s estimated glomerular filtration rate (eGFR) is between 101 mL/min/1.73 m2 (patients with less muscle mass per kg body weight) and 117 mL/min/1.73 m2 (patients with more muscle mass per kg body weight) as determined by the CKD-EPI equation. Assessment of eGFR is not appropriate when creatinine concentrations are rapidly changing. For clinical decisions where creatinine clearance will affect therapy, a 24-hour urine creatinine clearance may be advised. Assignment of CKD stage 1 - 5 for patients with an eGFR near the transition point between stages may be based on clinical assessment of muscle mass and symptoms in addition to eGFR. Blood 01/10/2021 3:36 PM EDT 01/10/2021 3:38 PM EDT Narrative Resulting Agency Comment Spec In Lab Bee Malone MD CHEMISTRY ORDERABLES [facility] [place] [address] documented in this encounter Visit Diagnoses Diagnosis Neck abscess Cellulitis and abscess of neck Neck abscess Cellulitis and abscess of neck documented in this encounter Admitting Diagnoses Diagnosis Neck abscess Cellulitis and abscess of neck documented in this encounter Administered Medications Inactive Administered Medications - up to 3 most recent administrations Medication Order MAR Action Action Date Dose Rate Site acetaminophen (Tylenol) tablet 1,000 mg 1,000 mg, Oral, EVERY 8 HOURS, First dose on 01/11/21 at 0130, Until Discontinued, Should be used concomitantly if other analgesics are ordered. Maximum dose of acetaminophen is 4000 mg from all sources in 24 hours., Routine Given 01/13/2021 8:43 AM EDT 1,000 mg Given 01/13/2021 12:30 AM EDT 1,000 mg Given 01/12/2021 5:17 PM EDT 1,000 mg buprenorphine-naloxone (Suboxone) 8-2 mg disintegrating tablet 1 tablet 1 tablet (8 mg of opiate), Sublingual, DAILY, First dose on 01/10/21 at 1639, Until Discontinued, Routine, Is patient on buprenorphine as an outpatient? Yes- prescribed Given 01/10/2021 5:38 PM EDT 1 tablet buprenorphine-naloxone (Suboxone) 8-2 mg disintegrating tablet 1 tablet 1 tablet (8 mg of opiate), Sublingual, 2 TIMES DAILY, First dose on 01/11/21 at 0900, Until Discontinued, Is patient on buprenorphine as an outpatient? Yes- prescribed Given 01/13/2021 8:44 AM EDT 1 tablet Given 01/12/2021 3:39 PM EDT 1 tablet Given 01/12/2021 8:38 AM EDT 1 tablet busPIRone (Buspar) tablet 5 mg 5 mg, Oral, 2 TIMES DAILY, First dose on 01/11/21 at 0230, Until Discontinued Given 01/13/2021 8:43 AM EDT 5 mg Given 01/12/2021 9:02 PM EDT 5 mg Given 01/12/2021 8:37 AM EDT 5 mg ceFEPime (Maxipime) 2g vial attach to sodium chloride 0.9% 100 mL Mini-Bag Plus 2 g 2 g, Intravenous, EVERY 8 HOURS, First dose on 01/11/21 at 0115, Until Discontinued, Administer over 30 Minutes, Indication for (Active or Suspected): Skin/Skin Structure New Bag 01/13/2021 12:24 AM EDT 2 g 200 mL/hr New Bag 01/12/2021 5:17 PM EDT 2 g 200 mL/hr New Bag 01/12/2021 8:37 AM EDT 2 g 200 mL/hr cloNIDine (CATAPRES) 0.1 mg/24 hr patch 1 patch 1 patch, Transdermal, WEEKLY, First dose on 01/11/21 at 1600, Until Discontinued, Do NOT cut patch. For partial patch doses, remove part of patch backing to expose the ordered dose. Secure the partially exposed patch with remaining backing in place with tegaderm. , Routine Patch Applied 01/11/2021 4:57 PM EDT 1 patch 11- Chest (Left) cloNIDine (Catapres) 0.1 mg/24 hr Patch Removal Transdermal, WEEKLY, First dose on 01/18/21 at 0900, Until Discontinued, Remove cloNIDine 0.1 mg/24 hr patch enoxaparin (Lovenox) (40 mg/0.4 mL) subcutaneous injection 40 mg 40 mg, Subcutaneous, NIGHTLY, First dose on 01/11/21 at 2100, Until Discontinued, Routine Given 01/11/2021 8:20 PM EDT 40 mg HYDROmorphone (Dilaudid) (2 mg/mL) multi-dose injection solution 0.4-0.6 mg 0.4-0.6 mg, Intravenous, EVERY 10 MIN PRN, Starting on 01/11/21 at 0015, Until 01/11/21 at 0125, Pain, Give 0.4 mg every 10 minutes PRN for mild to moderate pain (1-5) Give 0.6 mg every 10 minutes PRN for moderate to severe pain (6-10). Hold for respiratory rate less than 10 per minute. Maximum dose 4 mg over one hour, including OR administration. If multiple pain medications are ordered, start with HYDROmorphone or morphine and use fentaNYL for breakthrough pain., PACU Recovery, Routine Given 01/11/2021 12:55 AM EDT 0.6 mg Given 01/11/2021 12:28 AM EDT 0.6 mg iohexoL (Omnipaque) (350 mg/mL) injection solution 0-200 mL 0-200 mL, Intravenous, ONCE PRN, 1 dose, Starting on 01/10/21 at 1930, Until 01/10/21 at 1931, Per Protocol, Warning Vesicant/Irritant Medication , Radiology Contrast, Routine Given 01/10/2021 7:31 PM EDT 110 mLs ketorolac (Toradol) (15 mg/mL) injection 15 mg 15 mg, Intravenous, ONCE, 1 dose, On 01/10/21 at 2004, Routine Given 01/10/2021 8:45 PM EDT 15 mg lamoTRIgine (LaMICtal) tablet 150 mg 150 mg, Oral, NIGHTLY, First dose on 01/11/21 at 0300, Until Discontinued, Routine Given 01/12/2021 9:01 PM E DT 150 mg Given 01/11/2021 8:20 PM EDT 150 mg Given 01/11/2021 3:15 AM EDT 150 mg lithium capsule 1,050 mg 1,050 mg, Oral, NIGHTLY, First dose (after last modification) on 01/11/21 at 0300, Until Discontinued, Take with Food, Routine Given 01/12/2021 9:02 PM EDT 1,050 mg Given 01/11/2021 8:19 PM EDT 1,050 mg Given 01/11/2021 2:29 AM EDT 1,050 mg methylphenidate (Ritalin) tablet 10 mg 10 mg, Oral, 2 TIMES DAILY BEFORE MEALS, First dose on Tue01/12/21 at 1630, Until Discontinued, Routine Given 01/13/2021 6:34 AM EDT 10 mg Given 01/12/2021 3:39 PM EDT 10 mg nicotine (NICODERM CQ) 14 mg/24 hr patch 14 mg 14 mg (1 patch), Transdermal, Administer over 24 Hours, DAILY, First dose on Tue01/11/21 at 0900, Until Discontinued, Apply new patch to nonhairy, clean, dry skin on the upper body or upper outer arm; each patch should be applied to a different site , Routine Given 01/11/2021 10:04 AM EDT 14 mg 03- Shoulder (Left) nicotine (NICODERM CQ) 21 mg/24 hr patch 21 mg 21 mg (1 patch), Transdermal, DAILY, First dose on Tue01/12/21 at 0900, Until Discontinued, Apply new patch to nonhairy, clean, dry skin on the upper body or upper outer arm; each patch should be applied to a different site , Routine Patch Applied 01/13/2021 8:41 AM EDT 21 mg 04- Shoulder (Right) Patch Applied 01/12/2021 8:37 AM EDT 21 mg 03- Shoulder (Left) nicotine (NICODERM CQ) 21 mg/24 hr patch Patch Removal Transdermal, DAILY, First dose on Tue01/12/21 at 2115, Until Discontinued, Remove nicotine 21 mg/24 hr patch nicotine (NICODERM CQ) 21 mg/24 hr patch Patch Verification Transdermal, 2 TIMES DAILY, First dose on Tue01/12/21 at 0915, Until Discontinued, Verify nicotine 21 mg/24 hr patch prazosin (Minipress) capsule 4 mg 4 mg, Oral, NIGHTLY, First dose (after last modification) on 01/11/21 at 0300, Until Discontinued, Routine Given 01/12/2021 8:59 PM EDT 4 mg Given 01/11/2021 8:18 PM EDT 4 mg QUEtiapine (SEROquel) tablet 100 mg 100 mg, Oral, NIGHTLY, First dose (after last modification) on Tue01/11/21 at 0300, Until Discontinued, Routine Given 01/12/2021 9:00 PM EDT 100 mg Given 01/11/2021 8:19 PM EDT 100 mg Given 01/11/2021 3:15 AM EDT 100 mg senna-docusate (Pericolace) 8.6-50 mg per tablet 2 tablet 2 tablet, Oral, 2 TIMES DAILY, First dose on Tue01/11/21 at 0245, Until Discontinued, Routine Given 01/12/2021 8:59 PM EDT 2 tablets sodium chloride 0.9 % (flush) flush 5 mL 5 mL, Intravenous, 2 TIMES DAILY, First dose on Tue01/11/21 at 0245, Until Discontinued, Recovery (Recovery-Hospital Unit), Routine Given 01/13/2021 8:44 AM EDT 5 mLs Given 01/12/2021 9:17 PM EDT 5 mLs Given 01/12/2021 8:37 AM EDT 5 mLs vancomycin (Vancocin) 1 gram in sodium chloride 0.9% 250 mL infusion 1 g, Intravenous, at 250 mL/hr, EVERY 8 HOURS, First dose (after last reorder) on Tue01/11/21 at 1200, Until Discontinued, Maximum infusion rate is 1 gram/hour. If flushing of the face, neck, upper body, arms, and/or back occurs decrease infusion rate by 50% to reduce the severity of symptoms. This medication may have an associated drug lab level. Please see MAR for scheduled level. Warning Vesicant/Irritant Medication , Routine, Indication for (Active or Suspected): Skin/Skin Structure New Bag 01/12/2021 1:02 PM EDT 1 g 250 mL/hr New Bag 01/12/2021 4:13 AM EDT 1 g 250 mL/hr New Bag 01/11/2021 8:21 PM EDT 1 g 250 mL/hr vancomycin (Vancocin) 1.25 gram in sodium chloride 0.9% 250 mL infusion 1,250 mg, Intravenous, at 200 mL/hr, EVERY 8 HOURS, First dose (after last modification) on Tue01/12/21 at 2000, Until Discontinued, Maximum infusion rate is 1 gram/hour. If flushing of the face, neck, upper body, arms, and/or back occurs decrease infusion rate by 50% to reduce the severity of symptoms. This medication may have an associated drug lab level. Please see MAR for scheduled level. Warning Vesicant/Irritant Medication , Routine, Indication for (Active or Suspected): Skin/Skin Structure New Bag 01/13/2021 12:14 PM EDT 1,250 mg 200 mL/hr New Bag 01/13/2021 3:56 AM EDT 1,250 mg 200 mL/hr New Bag 01/12/2021 9:16 PM EDT 1,250 mg 200 mL/hr vancomycin (Vancocin) 2 gram in sodium chloride 0.9% 500 mL infusion 2 g, Intravenous, at 250 mL/hr, ONCE, 1 dose, On 01/11/21 at 0400, Maximum infusion rate is 1 gram/hour. If flushing of the face, neck, upper body, arms, and/or back occurs decrease infusion rate by 50% to reduce the severity of symptoms. This medication may have an associated drug lab level. Please see MAR for scheduled level. Warning Vesicant/Irritant Medication , Routine, Indication for (Active or Suspected): Skin/Skin Structure New Bag 01/11/2021 3:57 AM EDT 2 g 250 mL/hr documented in this encounter Active and Recently Administered Medications Times are shown in EDT. Scheduled Medication Order 01/11/2021 01/12/2021 01/13/2021 acetaminophen (Tylenol) tablet 1,000 mg 1,000 mg, Oral, EVERY 8 HOURS, First dose on 01/11/21 at 0130, Until Discontinued, Should be used concomitantly if other analgesics are ordered. Maximum dose of acetaminophen is 4000 mg from all sources in 24 hours., Routine 0112 (Given - Provider: Warren Welch RN)1004 (Given - Provider: Bea Frost RN)1656 (Given - Provider: Bea Frost RN) 0114 (Given - Provider: Violeta Singer RN)0848 (Given - Provider: Bea Frost RN)1717 (Given - Provider: Bea Frost RN) 0030 (Given - Provider: Jason Vega RN)0843 (Given - Provider: April Herrera, COCO) buprenorphine-naloxone (Suboxone) 8-2 mg disintegrating tablet 1 tablet 1 tablet (8 mg of opiate), Sublingual, 2 TIMES DAILY, First dose on 01/11/21 at 0900, Until Discontinued, Is patient on buprenorphine as an outpatient? Yes- prescribed 1003 (Given - Provider: Bea Frost RN)1712 (Given - Provider: Bea Frost RN) 0838 (Given - Provider: Bea Frost RN)1539 (Given - Provider: Bea Frost RN) 0844 (Given - Provider: April Herrera RN) busPIRone (Buspar) tablet 5 mg 5 mg, Oral, 2 TIMES DAILY, First dose on 01/11/21 at 0230, Until Discontinued 0229 (Given - Provider: Violeta Singer RN)1004 (Given - Provider: Bea Frost RN)2019 (Given - Provider: Violeta Singer RN) 0837 (Given - Provider: Bea Frost RN)210 (Given - Provider: Jason Vega RN) 0843 (Given - Provider: April Herrera RN) ceFEPime (Maxipime) 2g vial attach to sodium chloride 0.9% 100 mL Mini-Bag Plus 2 g (CANCELED) 2 g, Intravenous, EVERY 8 HOURS, First dose on 01/11/21 at 0115, Until Discontinued, Administer over 30 Minutes, Indication for (Active or Suspected): Skin/Skin Structure 0111 (New Bag - Provider: Warren Welch RN)0141 (Stopped - Provider: Violeta Singer RN)1003 (New Bag - Provider: Bea Frost RN)1033 (Stopped - Provider: Bea Frost RN)1658 (New Bag - Provider: Bea Frost RN)1728 (Stopped - Provider: Bea Frost RN) 0114 (New Bag - Provider: Violeta Singer RN)0144 (Stopped - Provider: Violeta Singer RN)0837 (New Bag - Provider: Bea Frost RN)0907 (Stopped - Provider: Bea Frost, COCO)1717 (New Bag - Provider: Bea Frost RN)1747 (Stopped - Provider: Bea Frost RN) 0024 (New Bag - Provider: Jason Vega, RN)0054 (Stopped - Provider: Jason Vega, RN) cloNIDine (CATAPRES) 0.1 mg/24 hr patch 1 patch(Linked Group 1) 1 patch, Transdermal, WEEKLY, First dose on 01/11/21 at 1600, Until Discontinued, Do NOT cut patch. For partial patch doses, remove part of patch backing to expose the ordered dose. Secure the partially exposed patch with remaining backing in place with tegaderm. , Routine 1656 (Patch Applied - Provider: Bea Frost RN) cloNIDine (Catapres) 0.1 mg/24 hr Patch Removal(Linked Group 1) Transdermal, WEEKLY, First dose on 01/18/21 at 0900, Until Discontinued, Remove cloNIDine 0.1 mg/24 hr patch enoxaparin (Lovenox) (40 mg/0.4 mL) subcutaneous injection 40 mg 40 mg, Subcutaneous, NIGHTLY, First dose on 01/11/21 at 2100, Until Discontinued, Routine 2020 (Given - Provider: Violeta Singer RN) 2099 (Not Given - Provider: Jason Vega RN - Reason: Patient/family refused - Comment: ppx) lamoTRIgine (LaMICtal) tablet 150 mg 150 mg, Oral, NIGHTLY, First dose on 01/11/21 at 0300, Until Discontinued, Routine 0315 (Given - Provider: Violeta Singer RN)2019 (Given - Provider: Violeta Singer RN) 2100 (Given - Provider: Jason Vega, RN) lithium capsule 1,050 mg 1,050 mg, Oral, NIGHTLY, First dose (after last modification) on 01/11/21 at 0300, Until Discontinued, Take with Food, Routine 022 (Given - Provider: Violeta Singer RN)2018 (Given - Provider: Violeta Singer RN) 2101 (Given - Provider: Jason Vega RN) methylphenidate (Ritalin) tablet 10 mg 10 mg, Oral, 2 TIMES DAILY BEFORE MEALS, First dose on Tue01/12/21 at 1630, Until Discontinued, Routine 1539 (Given - Provider: Bea Frost RN) 0634 (Given - Provider: Jason Vega, RN) nicotine (NICODERM CQ) 14 mg/24 hr patch 14 mg (CANCELED)(Linked Group 2) 14 mg (1 patch), Transdermal, Administer over 24 Hours, DAILY, First dose on Tue01/11/21 at 0900, Until Discontinued, Apply new patch to nonhairy, clean, dry skin on the upper body or upper outer arm; each patch should be applied to a different site , Routine 1004 (Given - Provider: Bea Frost RN) nicotine (NICODERM CQ) 21 mg/24 hr patch 21 mg(Linked Group 3) 21 mg (1 patch), Transdermal, DAILY, First dose on Tue01/12/21 at 0900, Until Discontinued, Apply new patch to nonhairy, clean, dry skin on the upper body or upper outer arm; each patch should be applied to a different site , Routine 0837 (Patch Applied - Provider: Bea Frost RN) 0841 (Patch Applied - Provider: April Herrera RN) nicotine (NICODERM CQ) 21 mg/24 hr patch Patch Removal(Linked Group 3) Transdermal, DAILY, First dose on Tue01/12/21 at 2115, Until Discontinued, Remove nicotine 21 mg/24 hr patch 0800 (Patch Removed - Provider: April Herrera RN) nicotine (NICODERM CQ) 21 mg/24 hr patch Patch Verification(Linked Group 3) Transdermal, 2 TIMES DAILY, First dose on Tue01/12/21 at 0915, Until Discontinued, Verify nicotine 21 mg/24 hr patch 0915 (Patch (dose and location) verified - Provider: Bea Frost RN)2100 (Patch (dose and location) verified - Provider: Jason Vega RN) 0900 (Patch (dose and location) verified - Provider: April Herrera RN) prazosin (Minipress) capsule 4 mg 4 mg, Oral, NIGHTLY, First dose (after last modification) on Tue01/11/21 at 0300, Until Discontinued, Routine 0300 (Not Given - Provider: Violeta Singer RN - Reason: Patient/family refused - Comment: takes the patch)2017 (Given - Provider: Violeta Singer RN) 2058 (Given - Provider: Jason Vega, COCO) QUEtiapine (SEROquel) tablet 100 mg 100 mg, Oral, NIGHTLY, First dose (after last modification) on 01/11/21 at 0300, Until Discontinued, Routine 031 (Given - Provider: Violeta Singer RN)2018 (Given - Provider: Violeta Singer RN) 2099 (Given - Provider: Jason Vega RN) senna-docusate (Pericolace) 8.6-50 mg per tablet 2 tablet 2 tablet, Oral, 2 TIMES DAILY, First dose on 01/11/21 at 0245, Until Discontinued, Routine 0245 (Not Given - Provider: Violeta Singer RN - Reason: Patient/family refused)09 (Not Given - Provider: Bea Frost RN - Reason: Patient/family refused)2099 (Not Given - Provider: Violeta Singer RN - Reason: Patient/family refused) 09 (Not Given - Provider: Bea Frost RN - Reason: Patient/family refused)2058 (Given - Provider: Jason Vega RN) 09 (Not Given - Provider: April Herrera RN - Reason: Patient/family refused) sodium chloride 0.9 % (flush) flush 5 mL 5 mL, Intravenous, 2 TIMES DAILY, First dose on 01/11/21 at 0245, Until Discontinued, Recovery (Recovery-Hospital Unit), Routine 024 (Not Given - Provider: Violeta Singer RN - Reason: See comment - Comment: task completed upon arrival to unit)1011 (Given - Provider: Bea Frost RN)2024 (Given - Provider: Violeta Singer RN) 08 (Given - Provider: Bea Frost RN)2116 (Given - Provider: Jason Vega RN) 0844 (Given - Provider: April Herrera RN) vancomycin (Vancocin) 1 gram in sodium chloride 0.9% 250 mL infusion (CANCELED) 1 g, Intravenous, at 250 mL/hr, EVERY 8 HOURS, First dose (after last reorder) on Tue01/11/21 at 1200, Until Discontinued, Maximum infusion rate is 1 gram/hour. If flushing of the face, neck, upper body, arms, and/or back occurs decrease infusion rate by 50% to reduce the severity of symptoms. This medication may have an associated drug lab level. Please see MAR for scheduled level. Warning Vesicant/Irritant Medication , Routine, Indication for (Active or Suspected): Skin/Skin Structure 1112 (New Bag - Provider: Bea Frost RN)121 (Stopped - Provider: Bea Frost RN)202 (New Bag - Provider: Violeta Singer RN)212 (Stopped - Provider: Violeta Singer RN) 0413 (New Bag - Provider: Violeta Singer RN)0513 (Stopped - Provider: Violeta Singer RN)1302 (New Bag - Provider: Bea Frost RN)1402 (Stopped - Provider: Bea Frost RN) vancomycin (Vancocin) 1.25 gram in sodium chloride 0.9% 250 mL infusion(Linked Group 4) 1,250 mg, Intravenous, at 200 mL/hr, EVERY 8 HOURS, First dose (after last modification) on Tue01/12/21 at 2000, Until Discontinued, Maximum infusion rate is 1 gram/hour. If flushing of the face, neck, upper body, arms, and/or back occurs decrease infusion rate by 50% to reduce the severity of symptoms. This medication may have an associated drug lab level. Please see MAR for scheduled level. Warning Vesicant/Irritant Medication , Routine, Indication for (Active or Suspected): Skin/Skin Structure 2115 (New Bag - Provider: Jason Vega RN)223 (Stopped - Provider: Jason Vega RN) 0356 (New Bag - Provider: Jason Vega RN)0511 (Stopped - Provider: Jason Vega RN)1214 (New Bag - Provider: Freda Palacios LPN)1329 (Stopped - Provider: April Herrera RN) vancomycin (Vancocin) 2 gram in sodium chloride 0.9% 500 mL infusion (COMPLETED)(Linked Group 5) 2 g, Intravenous, at 250 mL/hr, ONCE, 1 dose, On Tue01/11/21 at 0400, Maximum infusion rate is 1 gram/hour. If flushing of the face, neck, upper body, arms, and/or back occurs decrease infusion rate by 50% to reduce the severity of symptoms. This medication may have an associated drug lab level. Please see MAR for scheduled level. Warning Vesicant/Irritant Medication , Routine, Indication for (Active or Suspected): Skin/Skin Structure 0357 (New Bag - Provider: Violeta Singer, RN)0557 (Stopped - Provider: Violeta Singer, RN) PRN Medication Order 01/11/2021 01/12/2021 01/13/2021 bisacodyL (Dulcolax) suppository 10 mg 10 mg, Rectal, DAILY PRN, Starting on Tue01/11/21 at 0145, Until Tue01/13/21 at 1556, Constipation, Administer if no bowel movement within 48 hours to achieve: (1) One bowel movement at least every 48 hours, AND (2) without straining. If multiple PRN bowel medications ordered, start with polyethylene glycol, then lactulose, then oral bisacodyl, then bisacodyl suppository, then magnesium citrate, then tap water enema. Multiple medications may be given concomitantly for constipation., Routine HYDROmorphone (Dilaudid) (2 mg/mL) multi-dose injection solution 0.4-0.6 mg (CANCELED) 0.4-0.6 mg, Intravenous, EVERY 10 MIN PRN, Starting on 01/11/21 at 0015, Until Tue01/11/21 at 0125, Pain, Give 0.4 mg every 10 minutes PRN for mild to moderate pain (1-5) Give 0.6 mg every 10 minutes PRN for moderate to severe pain (6-10). Hold for respiratory rate less than 10 per minute. Maximum dose 4 mg over one hour, including OR administration. If multiple pain medications are ordered, start with HYDROmorphone or morphine and use fentaNYL for breakthrough pain., PACU Recovery, Routine 0028 (Given - Provider: Warren B Rebekah, RN)0055 (Given - Provider: Warren Welch RN) lidocaine (Xylocaine) 1% (10 mg/mL) injection 3 mg 3 mg (0.3 mL), Subcutaneous, ONCE PRN, 1 dose, Starting on Tue01/11/21 at 0145, Until Tue01/13/21 at 1556, for discomfort with PIV insertion, Recovery (Recovery-Hospital Unit), Routine polyethylene glycoL (Miralax) packet 17 g 17 g, Oral, DAILY PRN, Starting on Tue01/11/21 at 0145, Until Tue01/13/21 at 1556, Constipation, Administer if no bowel movement within 48 hours to achieve: (1) One bowel movement at least every 48 hours, AND (2) without straining. If multiple PRN bowel medications ordered, start with polyethylene glycol, then lactulose, then oral bisacodyl, then bisacodyl suppository, then magnesium citrate, then tap water enema. Multiple medications may be given concomitantly for constipation., Routine sodium chloride 0.9 % (flush) flush 5-20 mL 5-20 mL, Intravenous, EVERY 1 MIN PRN, Starting on Tue01/11/21 at 0145, Until Tue01/13/21 at 1556, flush, Flush pertains to all indwelling lines. Flush per protocol found in the job aid using the link provided on this medication record., Recovery (Recovery-Hospital Unit), Routine Linked Groups Order Group 1: cloNIDine (CATAPRES) 0.1 mg/24 hr patch 1 patchJump to med 1 patch, Transdermal, WEEKLY, First dose on Tue01/11/21 at 1600, Until Discontinued, Do NOT cut patch. For partial patch doses, remove part of patch backing to expose the ordered dose. Secure the partially exposed patch with remaining backing in place with tegaderm. , Routine And cloNIDine (Catapres) 0.1 mg/24 hr Patch RemovalJump to med Transdermal, WEEKLY, First dose on Tue01/18/21 at 0900, Until Discontinued, Remove cloNIDine 0.1 mg/24 hr patch Group 2: nicotine (NICODERM CQ) 14 mg/24 hr patch 14 mg (CANCELED)Jump to med 14 mg (1 patch), Transdermal, Administer over 24 Hours, DAILY, First dose on Tue01/11/21 at 0900, Until Discontinued, Apply new patch to nonhairy, clean, dry skin on the upper body or upper outer arm; each patch should be applied to a different site , Routine And nicotine (NICODERM CQ) 14 mg/24 hr patch Patch Verification (CANCELED) Transdermal, 2 TIMES DAILY, First dose on Tue01/11/21 at 1245, Until Discontinued, Verify nicotine 14 mg/24 hr patch. And nicotine (NICODERM CQ) 14 mg/24 hr patch Patch Removal (CANCELED) Transdermal, DAILY, First dose on Tue01/12/21 at 0900, Until Discontinued, Remove nicotine 14 mg/24 hr patch Group 3: nicotine (NICODERM CQ) 21 mg/24 hr patch 21 mgJump to med 21 mg (1 patch), Transdermal, DAILY, First dose on Tue01/12/21 at 0900, Until Discontinued, Apply new patch to nonhairy, clean, dry skin on the upper body or upper outer arm; each patch should be applied to a different site , Routine And nicotine (NICODERM CQ) 21 mg/24 hr patch Patch VerificationJump to med Transdermal, 2 TIMES DAILY, First dose on Tue01/12/21 at 0915, Until Discontinued, Verify nicotine 21 mg/24 hr patch And nicotine (NICODERM CQ) 21 mg/24 hr patch Patch RemovalJump to med Transdermal, DAILY, First dose on Tue01/12/21 at 2115, Until Discontinued, Remove nicotine 21 mg/24 hr patch Group 4: vancomycin (Vancocin) 1.25 gram in sodium chloride 0.9% 250 mL infusionJump to med 1,250 mg, Intravenous, at 200 mL/hr, EVERY 8 HOURS, First dose (after last modification) on Tue01/12/21 at 2000, Until Discontinued, Maximum infusion rate is 1 gram/hour. If flushing of the face, neck, upper body, arms, and/or back occurs decrease infusion rate by 50% to reduce the severity of symptoms. This medication may have an associated drug lab level. Please see MAR for scheduled level. Warning Vesicant/Irritant Medication , Routine, Indication for (Active or Suspected): Skin/Skin Structure Group 5: vancomycin (Vancocin) 2 gram in sodium chloride 0.9% 500 mL infusion (COMPLETED)Jump to med 2 g, Intravenous, at 250 mL/hr, ONCE, 1 dose, On 01/11/21 at 0400, Maximum infusion rate is 1 gram/hour. If flushing of the face, neck, upper body, arms, and/or back occurs decrease infusion rate by 50% to reduce the severity of symptoms. This medication may have an associated drug lab level. Please see MAR for scheduled level. Warning Vesicant/Irritant Medication , Routine, Indication for (Active or Suspected): Skin/Skin Structure And Vancomycin Level - MAR Order Reminder (CANCELED) NOT APPLICABLE, PER PHARMACY, Other, Starting on 01/11/21 at 0301, Until 01/11/21 at 0730, This alert will be scheduled by a pharmacist after order placement. This order is a reminder to nursing staff to release and draw the PRN drug level at the specified time. It may be necessary to contact phlebotomy 60 minutes prior to the scheduled due time to assure a timely blood draw. documented in this encounter Care Teams Gasoline Attendant Relationship Specialty Start Date End Date Laura Ho MD [address] [place] [id number] PCP - General Family Medicine 06/28/16 documented as of this encounter
--- OUTSIDE RECORDS SUMMARY | 2024-06-21 15:31 | XMS_ITS | Encounter Summary ---
Author Organization [facility] [address] Care Team Providers Care Trestle Mainternance Laborer Name Role Phone Laura Ho MD Primary Care Provider [phone] Encounter Details Date Type Department Care Team (Late st Contact Info) Description 10/15/2020 3:20 PM EDT Office Visit [place] [address] Jorge Luis Rios MD [facility] [place] [address] Postoperative visit Social History Tobacco Use Types Packs/Day Years [...] Sign Reading Time Taken Comments Blood Pressure 121/72 10/15/2020 3:18 PM EDT Pulse 65 10/15/2020 3:18 PM EDT Temperature 36.6 ??C (97.9 ??F) 10/15/2020 3:18 PM ED T Respiratory Rate 16 10/15/2020 3:18 PM EDT Oxygen Saturation 99% 10/15/2020 3:18 PM EDT Inhaled Oxygen Concentration - - Weight 84.2 kg (185 lb 9.6 oz) 10/15/2020 3:18 P M EDT Height - - Body Mass Index 24.49 09/03/2020 12:48 PM EST documented in this encounter Progress Notes * Jorge Luis Rios MD - 10/15/2020 3:20 PM EDT Patient is a 40-year-old gentleman here for follow-up after a laparoscopic cholecystectomy on 09/15/2020. He had no postoperative difficulties and as I see him today he looks great. On exam all trocar sites are healing well the epigastric trocar site is a small scab on the lateral edge but I suspect this will heal up without any consequence. Gallbladder pathology was consistent with chronic cholecystitis and cholelithiasis. Overall he has had a uneventful recovery and seems very pleased with bothhis decision undergo the operation as well as the results so far documented in this encounter Plan of Treatment Not on file documented as of this encounter Visit Diagnoses Diagnosis Postoperative visit documented in this encounter Care Teams Trestle Mainternance Laborer Relationship Specialty Start Date End Date Laura Ho MD [address] [place] [id number] PCP - General Family Medicine 06/28/16 documented as of this encounter
--- OUTSIDE RECORDS SUMMARY | 2024-06-21 15:31 | XMS_ITS | Encounter Summary ---
Author Organization [facility] Address [facility] [place] [address] Care Team Providers Care Retail Merchandiser Name Role Phone Laura Ho MD Primary Care Provider [phone] Reason for Visit * Auth/Cert Specialty Diagnoses / Procedures Referred By Govind townsend Referred To Contact Diagnoses BILARY COLIC Procedures PRO LAP, CHOLECYSTECTOMY/GRAPH LAPAROSCOPIC CHOLECYSTECTOMY WITH CHOLANGIOGRAM (WRVU 11.47) Referral ID Status Reason Start Date Expiration Date Visits Re quested Visits Authorized [id number] 1 1 Encounter Details Date Type Department Care Team (Latest Contact Info) Description 09/15/2020 9:10 AM EST - 09/15/2020 5:19 PM EST Hospital [place] [id number] Jorge Luis Arizmendi MD [facility] [place] [address] Discharge Disposition: Home Social History Tobacco Use [...] Sign Reading Time Taken Comments Blood Pressure 133/88 09/15/2020 4:25 PM EST Pulse 58 09/15/2020 4:25 PM EST Temperature 36.4 ??C (97.5 ??F) 09/15/2020 1:11 PM ES T Respiratory Rate 16 09/15/2020 4:25 PM EST Oxygen Saturation 100% 09/15/2020 4:25 PM EST Inhaled Oxygen Concentration - - Weight - - Height - - Body Mass Index - - documented in this encounter Discharge Instructions * Discharge Instructions* Lissy Foley RN - 09/15/2020 2:02 PM EST POST ANESTHESIA INSTRUCTIONS Go home, rest, use caution on stairs. Change positions slowly. Do not smoke if you are alone. Diet light to regular as tolerated today. If nausea occurs start with clear liquids and progress slowly. No driving, operating machinery, alcoholic beverages and no important decisions for 24 hours. Monitor IV site for signs and symptoms of infection: increasing redness, swelling, foul drainage, if occurs contact M.D. Patients who have had endotrachial tubes (this tube, used by anesthesia department, is passed down your throat after you are asleep, to ensure safe air passage during your operation). A sore throat is normal due to the tube. Cold liquids or soothing lozenges will help ease the discomfort. The generalized muscle aches are due to the medication given to you just before the tube is inserted. As the medication wears off, you may develop muscle soreness, which usually goes away in 12-24 hours. * Patient Instructions* Amanda Johnson MD - 09/15/2020 1:19 PM EST Instructions following Laparoscopic Cholecystectomy Wound Care: You will either have a liquid dressing or steri-strips and Band-Aids or a dry sterile dressing. ?? If you have a liquid dressing, there is nothing to remove. - Please keep the area clean and dry. After 24 hours, you may shower and gently pat the area dry. ?? If you have steri-strips and Band-Aids, remove the Band-Aids/outer dressing in 48 hours. - You may then shower and pat the area dry. Leave the steri-strips (little pieces of skin tape) across the incision and allow them to peel off on their own. If they are still there in 10 days, you may remove them. ?? Some bruising around your incisions is normal. ?? No swimming or soaking for two weeks. ?? Your stitches will dissolve and do not need to be removed. Urinary retention: If you are unable to urinate 6-8 hours after your surgery, please call [phone] before 5 PM weekdays and [phone] after 5 PM and weekends to discuss further managment. Activity: No heavy lifting more than 10 pounds for the next 2 weeks, then you may gradually lift heavier objects as tolerated by discomfort. Otherwise activity as tolerated by your comfort level. Pain Management: Use Tylenol, ibuprofen and ice to treat your pain. ?? You may take 1 gram of Tylenol (Max 4 grams per day), and 600 mg of ibuprofen with meals and before bed time. ?? You may use an ice pack as needed. ?? If you still have pain not controlled by these measures. Bowel Medications: Prescription pain medication can make you constipated. If you take this medication, also take colace 100 mg twice daily (this is over the counter). If this is not sufficient, you may take Miralax (polyethylene glycol) to help move your bowels. Diet: After your procedure, there are no dietary restrictions. Driving restrictions: No driving if you are taking prescription pain medication or if you think your normal reaction timeand attentiveness has been slowed by your surgery. Call Doctor for: Please call if you notice worsening redness or drainage from incision(s) lasting longer than 5 daysafter your surgery, any foul-smelling drainage from the incision, pain not controlled by pain medications, persistent nausea and vomiting, or for any fevers greater than 101.3 F. The number for questions is [phone] before 5 PM weekdays and [phone] after 5 PM and weekends. Follow-up: Follow-up appointment will be scheduled with Dr. Arizmendi in 4 weeks. Appointment will be mailed to you. Please call [phone] (clinic number for appointments) to confirm date and time of your appointment if you do not receive your apointment in 3 weeks. documented in this encounter Medications at Time [...] Tablet Take 125 mg by mouth nightly. prazosin (Minipress) 1 mg Capsule Take 4 mg by mouth nightly. 10/15/2020 ondansetron ODT (Zofran ODT) 4 mg Tablet, Rapid Dissolve Take 1-2 tablets by mouth every 8 hours as needed for Nausea. 20 tablet 1 08/05/2020 10/15/2020 documented as of this encounter Progress Notes * Lissy Foley, RN - 09/15/2020 1:57 PM EST Pt continuously vomiting green emesis. Medicated for n/v. Otherwise pt states he has minimal discomfort. All abd dressing dry and intact. 1500- in. 1530-pt sitting up, stated he feels nauseated after movement. Vomited x2-green. No relief noted. Attempted to give pt sips of water. Anesthesia aware. See new orders. 1630-Question relief after new antiemetics. in. 1700-Pt up to bathroom, gait steady. Voided. Pt states nausea improved. No c/o pain. DC instructions with pt and . documented in this encounter H&P Notes * Amanda Johnson MD - 09/15/2020 10:49 AM EST [facility] Minimally Invasive Surgery Interval History and Physical HPI: Harvey Espinosa is a 40 y.o. male who presents for Laparoscopic cholecystectomy for biliary colic. Please see clinic note dated 09/03/20 for further historical details, copied below. There have been no changes to the patient's history or physical exam since documented in clinic. Patient is a 40-year-old gentleman who was referred for possible cholecystectomy. He was recently seen at an outside ER at [facility] notable for cholelithiasis in the setting of right upper quadrant pain. He underwent ultrasound just prior to seeing me today which had again not confirms gallstones without evidence of acute cholecystitis and his bile duct was 8 mm. He does have a history of drug abuse and currently is on Suboxone and also tells me he had a history of hepatitis which has resolved.I spent 40 minutes with him today the entire time in [id number] conversation regarding pathophysiology of gallstones as well as risks and benefits of surgery. Given the symptomatic nature of his gallstones I would recommend an elective laparoscopic cholecystectomy with cholangiogram. Risks would include possibility infection possibility of bleeding requiring transfusion possible injury to bile duct or intestine and a possibility of having to convert to the open surgery of roughly 2%. Overall he seems understand would like to proceed with this in mind give a date for surgery at some point inthe near future Electronically Past Medical History: Diagnosis Date ??? Bipolar 1 disorder ??? Cellulitis of hand 12/09/2015 ??? Injury, superficial, hand with infection 12/10/2015 PSH: No prior abdominal surgeries No current facility-administered medications on file prior to encounter. Current Outpatient Medications on File Prior to Encounter Medication Sig Dispense Refill ??? prazosin (Minipress) 1 mg Capsule Take 4 mg by mouth nightly. ??? cloNIDine (CATAPRES) 0.1 mg/24 hr Patch [...] times daily. Takes midday and nightly ??? QUEtiapine (SEROqueL) 100 mg Tablet Take 400 mg by mouth nightly. ??? lithium 300 mg Capsule Take 1,050 mg by mouth nightly. ??? buprenorphine-nalOXone (SUBOXONE) 8-[address] 16 mg under the tongue daily. ??? Dexmethylphenidate 30 mg Capsule, Multiphasic Rel.50-50 Take 30 mg by mouth daily. ??? lamoTRIgine (LAMICTAL) 25 mg Tablet Take 125 mg by mouth nightly. ??? acyclovir (ZOVIRAX) 200 mg Capsule as needed. ??? ondansetron ODT (Zofran ODT) 4 mg Tablet, Rapid Dissolve Take 1-2 tablets by mouth every 8 hours as needed for Nausea. 20 tablet 1 ??? triamcinolone (KENALOG) 0.1 % Ointment Apply twice daily to the affected areas on the hands andlower legs for 21 days, then take one week off, and repeat as needed. Can occlude with cotton gloves after application to the hands at night 80 g 2 Allergies Allergen Reactions ??? Pcn [Penicillins] Social History Socioeconomic History ??? Marital status: Spouse name: Not on file ??? Number of children: Not on file ??? Years of education: Not on file ??? Highest education level: Not on file Occupational History ??? Not on file Tobacco Use ??? Smoking status: Current Every Day Smoker Types: Cigarettes ??? Smokeless tobacco: Never Used Substance and Sexual Activity ??? Alcohol use: [...] Strain: ??? Difficulty of Paying Living Expenses: Not on file Food Insecurity: ??? Worried About Running Out of Food in the Last Year: Not on file ??? Ran Out of Food in the Last Year: Not on file Transportation Needs: ??? Lack of Transportation (Medical): Not on file ??? Lack of Transportation (Non-Medical): Not on file Physical Activity: ??? Days of Exercise per Week: Not on file ??? Minutes of Exercise per Session: Not on file Patient Vitals for the past 24 hrs: BP Temp Temp src Pulse Resp SpO2 09/15/20 0945 111/67 37 ??C (98.6 ??F) Temporal 88 16 98 % PE: Comfortable, in NAD, conversant RRR without murmurs CTAB Abdomen soft, NT, ND Plan: Harvey Espinosa is a 40 y.o. male who presents for Laparoscopic cholecystectomy for biliary colic. He has no further questions and agrees to proceed. Amanda Johnson MD PGY-6 Minimally Invasive Surgery Fellow documented in this encounter Miscellaneous Notes * Op Note - Jorge Luis Arizmendi MD - 09/15/2020 11:50 AM EST [facility] Operative Note Patient Name: Harvey Espinosa : [id number] MR#: [id number] Case Date: 09/15/2020 Surgeon: Surgeon(s) and Role: * Jorge Luis Arizmendi MD - Primary * Amanda Johnson MD - Fellow Preoperative diagnosis: BILARY COLIC Postoperative diagnosis: BILARY COLIC Procedure(s) (LRB): LAPAROSCOPIC CHOLECYSTECTOMY WITH CHOLANGIOGRAM (WRVU 11.47) (N/A) Indications For Procedure: The patient is a 40-year-old male with a history of biliary colic, confirmed to have gallstones on ultrasound. Following review of his therapeutic options, he has elected to undergo a laparoscopic cholecystectomy. Findings: The patient was noted to have evidence of inflammation to his gallbladder in the past as evidenced by omental adhesions to the gallbladder. He underwent a laparoscopic cholecystectomy with intraoperative cholangiogram. Cholangiogram showed no filling defects in the bile system and good flow of dye into the duodenum with normal bile duct anatomy. Description of Procedure: The patient was brought to the Operating Room and placed in the supine position. Following uneventful induction of general endotracheal anesthesia, Venodyne stockings and anorogastric tube were placed. His abdomen was prepped and draped in the usual sterile fashion. A small incision was made in the base of the umbilicus followed by insertion of a Veress needle in the abdominal cavity and pneumoperitoneum to 15 mmHg pressure was obtained without difficulty. The first trocar was a 10 mm trocar placed through the umbilicus. Through this, a 30 degree laparoscope was inserted. All remaining trocars were inserted under direct visualization. The next trocar was a 10 mm trocar placed in the midline just below the xiphoid. The next trocar was a 5 mm trocar placed in the anterior axillary line just below the costal margin. Through this trocar, a grasping forceps was placed on the fundus of the gallbladder where it was then retracted cephalad. The last trocar was a 5 mm trocar placed in the midclavicular line below the costal margin. Using appropriate grasping instruments, the peritoneum overlying the triangle of Calot was incised. The cystic duct/gallbladder junction was identified, dissected circumferentially. A clip was then placed on the cystic duct/gallbladder junction and an intraoperative cholangiogram performed using fluoroscopy, which showed good flow of dye into the duodenum. There were no intra- or extrahepatic bile duct filling defects. The biliary anatomy appeared normal. Following completion of the cholangiogram, the catheter was removed. Two clips were then placed proximally on the cystic duct and the duct divided. The cystic artery was identified medially and was dissected circumferentially. Two clips were placed proximally and one distally, and the artery was divided. Remaining soft tissue attachments to the gallbladder to the liver bed were then divided using electrocautery. The gallbladder bed was inspected and excellent hemostasis was obtained. The gallbladder was extracted through the epigastric trocar site. The abdomen was again irrigated and excellent hemostasis was assured. All remaining trocars were then removed and the pneumoperitoneum was evacuated. All trocar sites were closed at the skin level using a running subcuticular closure of 4-0 Vicryl followed by Steri-Strips followed by Band-Aids. Overall, the patient to lerated the procedure well and was taken to the Recovery Room postoperatively in stable condition. Attestation: Case Date: 09/15/2020 I performed this procedure without the involvement of a resident. JORGE LUIS ARIZMEDNI MD 09/15/2020 documented in this encounter Plan of Treatment Not on file documented as of this encounter Procedures Procedure Name Priority Date/Time Associated Diagnosis Comments SURGICAL PATHOLOGY REPORT Routine 09/15/2020 12:41 PM EST SPECIMEN TO PATHOLOGY Routine 09/15/2020 12:41 PM EST XR FLUORO NO RAD <1HR - OR USE Routine 09/15/2020 12:39 PM EST Lap, Cholecystectomy/Gra ph ([id number]) 09/15/2020 11:24 AM EST BILARY COLIC documented in this encounter Results * Surgical Pathology Report (09/15/2020 12:41 PM EST) Final Diagnosis [id number] ? Location: [facility]; [facility]; The signing pathologist has (i) examined the relevant preparation(s) for the specimen(s) and (ii) rendered or confirmed the diagnosis(es). . ?Surgical Pathology DIAGNOSIS Gallbladder: - ??Cholelithiasis. Electronically signed by: ??Robert Bazzi MD Verified: ??09/18/2020 ?Pathologist Performed at: ??-[facility] Dept. of Pathology, [place], [place] SPECIMEN(S) SUBMITTED A - gallbladder, excision (1) CLINICAL INFORMATION Biliary colic SPECIMEN PROCESSING A - Labeled/Fixative: Gallbladder, fresh. Quantity/Size: ??Single, 8.5 x 3.2 x 2.7 cm. Specimen Description: Gallbladder, received intact. Serosa: Collbran-red, congested. Adventitia: Unremarkable. Lumen contents: Yellow, viscous, bile. Gallstones: Present: Single, yellow gallstone, 0.9 cm. Mucosa: Collbran-yellow and velvety. Wall: 0.2 cm thick. Duct: 0.3 cm, patent. Ink Designation: The hepatic margin is inked black Sections/Processi ng: Skid [employer] Man sections in 1 cassettes as follows: ?A1: ??cystic duct margin and personal service representative mucosa. ??sns 09/18/2020 4:07 PM EST [facility] GALLBLADDER STRUCTURE / Unknown 09/15/2020 12:41 PM EST 09/15/2020 12:41 PM EST Jorge Luis Arizmendi MD PATHOLOGY/CYTOLOGY ORDERABLES Performing Organization Address [facility] Co de Phone Number [facility] [place] [address] * Specimen to Pathology (09/15/2020 12:41 PM EST) AP Specimen 09/15/2020 12:4 1 PM EST 09/15/2020 12:41 PM EST Narrative [facility] - 09/15/2020 12:41 PM EST Specimen requisition ordered. ??Separate Pathology report to follow Jorge Luis Arizmendi MD PATHOLOGY/CYTOLOGY ORDERABLES Performing Organization Address [facility] de Phone Number [facility] [place] [address] * XR Fluoro No Rad <1Hr - OR Use (09/15/2020 12:39 PM EST) Narrative RAD - 09/15/2020 12:41 PM EST This exam is auto-finalizing. No interpretation was done. Jorge Luis Arizmendi MD IMG FLUORO ORDERABL ES Performing Organization Address [facility] Co de Phone Number [place], [place] documented in this encounter Visit Diagnoses Not on filedocumented in this encounter Administered Medications Inactive Administered Medications - up to 3 most recent administrations Medication Order MAR Action Action Date Dose Rate Site ketorolac (Toradol) (15 mg/mL) injection 15 mg 15 mg, Intravenous, ONCE, 1 dose, On Tue09/15/20 at 1345, Routine Given 09/15/2020 1:45 PM EST 15 mg oxyCODONE (Roxicodone) tablet 5 mg 5 mg, Oral, EVERY 4 HOURS PRN, Starting on Tue09/15/20 at 1317, Until Tue09/15/20 at 1920, Pain, Routine promethazine (Phenergan) (25 mg/mL) injection 12.5 mg 12.5 mg, Intravenous, EVERY 30 MIN PRN, Nausea, Starting on Tue09/15/20 at 1346, 2 doses, Until Tue09/15/20 at 1713, VESICANT - Dilute with a minimum of 10 mL saline. LARGE VEIN only. Inject over 10 minutes into the farthest port of a running IV infusion. Remain with the patient and STOP infusion immediately if patient reports burning. Avoid extravasation. If multiple antiemetics are ordered, use ondansetron first and if ineffective use prochlorperazine second and if ineffective use promethazine., PACU Recovery Given 09/15/2020 1:56 PM EST 12.5 mg scopolamine (TRANSDERM-SCOP) 1 mg over 3 days patch 1 patch 1 patch, Transdermal, ONCE, 1 dose, On Tue09/15/20 at 1545, Day of Surgery (Day of Procedure), Routine Patch Applied 09/15/2020 3:30 PM EST 1 patch 01- Ear Behind (Left) scopolamine (TRANSDERM-SCOP) 1 mg patch Patch Removal Transdermal, EVERY 24 HOURS, 1 dose, First dose on Tue09/16/20 at 1530, Remove scopolamine 1 mg patch, Recovery (Recovery-Hospital Unit) scopolamine (TRANSDERM-SCOP) 1 mg patch Patch Verification Transdermal, 2 TIMES DAILY, First dose on Tue09/16/20 at 0330, Until Discontinued, Verify scopolamine 1 mg patch., Recovery (Recovery-Hospital Unit) documented in this encounter Active and Recently Administered Medications Times are shown in EST. Scheduled Medication Order 09/13/2020 09/14/2020 09/15/2020 acetaminophen (Tylenol) tablet 1,000 mg 1,000 mg, Oral, ONCE, 1 dose, On Tue09/15/20 at 1345, Maximum dose of acetaminophen is 4000 mg from all sources in 24 hours. When ordered for pain, acetaminophen should be given even when other ordered pain medications are indicated. , Routine 1345 (Due) clindamycin (Cleocin) 900 mg in dextrose 5% 50 mL infusion (COMPLETED) 900 mg, Intravenous, RATE CLERK TO O.R., 1 dose, On Tue09/15/20 at 1115, Administer over 30 Minutes, Indication for (Active or Suspected): Prophylaxis 1140 (Given - Provid er: Tim Marquez CRNA - Comment: OVER 20 MINUTES) ketorolac (Toradol) (15 mg/mL) injection 15 mg (COMPLETED) 15 mg, Intravenous, ONCE, 1 dose, On Tue09/15/20 at 1345, Routine 1345 (Given - Provid er: Lissy Foley RN) scopolamine (TRANSDERM-SCOP) 1 mg over 3 days patch 1 patch (COMPLETED) 1 patch, Transdermal, ONCE, 1 dose, On Tue09/15/20 at 1545, Day of Surgery (Day of Procedure), Routine 1530 (Patch Applied - Provider: Lissy Foley RN) scopolamine (TRANSDERM-SCOP) 1 mg patch Patch Removal Transdermal, EVERY 24 HOURS, 1 dose, First dose on Tue09/16/20 at 1530, Remove scopolamine 1 mg patch, Recovery (Recovery-Hospital Unit) scopolamine (TRANSDERM-SCOP) 1 mg patch Patch Verification Transdermal, 2 TIMES DAILY, First dose on Tue09/16/20 at 0330, Until Discontinued, Verify scopolamine 1 mg patch., Recovery (Recovery-Hospital Unit) Continuous Medication Order 09/13/2020 09/14/2020 09/15/2020 lactated ringers infusion (CANCELED) 1,000 mL, at 100 mL/hr, Intravenous, CONTINUOUS, Starting on Tue09/15/20 at 1000, Until Tue09/15/20 at 1713, Day of Surgery (Day of Procedure) 1100 (New Bag - Prov ider: Tim Marquez CRNA)1303 (Stopped - Provider: Tim Marquez CRNA) PRN Medication Order 09/13/2020 09/14/2020 09/15/2020 BUpivacaine (pf) (Marcaine) (2.5 mg/mL) 0.25% injection (CANCELED) ONCE PRN, Starting on Tue09/15/20 at 1206, Until Tue09/15/20 at 1920, Intra-Operative (Intra-Procedure), Routine 1206 (Given - Provid er: Jorge Luis Arizmendi MD)1251 (Canceled Entry - Provider: Jorge Luis Arizmendi MD)1252 (Given - Provider: Jorge Luis Arizmendi MD) oxyCODONE (Roxicodone) tablet 5 mg 5 mg, Oral, EVERY 4 HOURS PRN, Starting on Tue09/15/20 at 1317, Until Tue09/15/20 at 1920, Pain, Routine promethazine (Phenergan) (25 mg/mL) injection 12.5 mg (CANCELED) 12.5 mg, Intravenous, EVERY 30 MIN PRN, Nausea, Starting on Tue09/15/20 at 1346, 2 doses, Until Tue09/15/20 at 1713, VESICANT - Dilute with a minimum of 10 mL saline. LARGE VEIN only. Inject over 10 minutes into the farthest port of a running IV infusion. Remain with the patient and STOP infusion immediately if patient reports burning. Avoid extravasation. If multiple antiemetics are ordered, use ondansetron first and if ineffective use prochlorperazine second and if ineffective use promethazine., PACU Recovery 1356 (Given - Provid er: Lissy Foley RN) documented in this encounter Care Teams Retail Merchandiser Relationship Specialty Start Date End Date Laura Ho MD [address] [place] [address] PCP - General Family Medicine 06/28/16 documented as of this encounter
--- OUTSIDE RECORDS SUMMARY | 2024-06-21 15:31 | XMS_ITS | Encounter Summary ---
Author Organization [facility] Address [facility] [place] [address] Care Team Providers Care Dairy Clerk Name Role Phone Laura Ho MD Primary Care Provider [phone] Reason for Visit * Auth/Cert Specialty Diagnoses / Procedures Referred By Govind townsend Referred To Contact Diagnoses Neck abscess Procedures ER IPI Admit Referral ID Status Reason Start Date Expiration Date Visits Re quested Visits Authorized [id number] 1 1 Encounter Details Date Type Department Care Team (Late st Contact Info) Description 01/10/2021 10:42 PM EDT Anesthesia Event [place] [address] Micah Ko MD [facility] [place] [address] Matteo Campuzano MD [facility] [place] [address] Anesthesia Record Procedure Summary Procedure Name Responsible Anesthesiologist Anesthesia Start Time Anesthesia Stop Time I & D DEEP ABSCESS OR HEMATOMA, NECK (WRVU 3.98) (Right: Neck) Micah Ko MD 01/10/212 01/11/21 0015 Events Date Time Event Comment 01/10/20214 2242 AN Verify 2242 Start 2242 An Start Data 2247 An Induction 2251 An Intubation 2251 Anesthesia Ready 2321 Procedure Start 01/11/2021 0004 Extubation/LMA Out 0005 an stop data 0015 Recovery or ICU Handoff Lias ent care was transferred to the destination unit staff after review of the patient's medical history, current anesthetic/surgical status and plan, according to the Provider Handoff Checklist. 0015 Stop Meds Name Total fentaNYL 100 mcg IV Lidocaine 50 mg Propofol 350 mg Rocuronium 50 mg PHENYLephrine 80 mcg Ondansetron 4 mg Neostigmine 5 mg Glycopyrrolate 0.8 mg Succinylcholine 100 mg HYDROmorphone 2 mg Clindamycin 900 mg Lactated Ringers 350 mL * Agents Name O2 Air N2O Sevoflurane (et) * Blood No blood administrations on file. Lines, Drains, and Airways Type Details Placement Removal Open Drain 01/10/21; 2348; Righ t, Lateral; Neck; (1/2 Fr Bob Draine) 01/10/21 2348 by Luzmaria Braxton RN Incision 09/15/20; 1150; abdo men; laparoscopic punctures (specify) (x 3 sites); 01/11/21; 0152 09/15/20 1150 by Michaelle Deshpande RN 01/11/21 0152 by Violeta Singer RN (RETIRED) Peripheral IV Line - Single Lumen 01/10/21; 1510; cephalic vein (lateral side of arm), right; bppp-tar-wetlpn catheter system; Ultrasound Guidance; 18 gauge; JRM; 04/15/21 (LDA Cleanup utility RA#[id number]); 1650 (LDA Cleanup utility RA#[id number]) 01/10/21 1510 by Rosaura Titus RN 04/15/21 1650 by Russel Macedo ETT Mask Ventilation: Ea sy (1); ETT Type: Cuffed; ETT Size: 7.5 mm; Mac Blade: 4; Notes: Asleep, Pre-O2, Stylette; Attempts: 1; Laryngoscopy Grade: 1; ETT Placement Verified By: Auscultation, Capnometry, Visual; Secured at Teeth: 23 cm; Inserted by: Justen; Removal Date: 01/11/21; Removal Time: 301/10/212250 by Matteo Campuzano MD 01/11/21 0004 by Matteo Campuzano MD Incision 01/10/21; 2333; Righ t; neck; horizontal; 03/08/22 (LDA cleanup utility RA#[id number]); 1715 (LDA cleanup utility RA#[id number]) 01/10/21 2333 by Luzmaria Braxton RN 03/08/22 1715 by Shanice Marte documented in this encounter Social History Tobacco [...] OR Notes * Anesthesia Postprocedure Evaluation - Cuong Guerrero - 01/11/2021 12:15 AM EDT Department of Anesthesiology Post-procedure Note Patient: Harvey Espinosa Procedure Summary Date: 01/10/21 Room / Location: [facility] [address] [place] [address] MAIN OR Anesthesia Start: 2241 Anesthesia Stop: 01/11/21 001 Procedure: I & D DEEP ABSCESS OR HEMATOMA, NECK (WRVU 3.98) (Right Neck) Diagnosis: (Neck abscess) Surgeons: Nelson Gong MD Responsible Provider: Micah Ko MD Anesthesia Type: general ASA Status: 3 - Emergent All Anesthesia Providers: Anesthesiologist: Micah Ko MD Precision Machining Instructor: Matteo Campuzano MD Vitals Value Taken Time BP Temp Pulse Resp SpO2 Pain Level Patient Location: PACU/[facility] Level of Consciousness: Awake and Alert Pain Management: Satisfactory Analgesia PONV: None Cardiovascular Status: At Baseline and Hemodynamically Stable Respiratory Status: At Baseline and Room Air Postoperative Fluid Status: Intravascular EUvolemia Possible Anesthetic Complications: NONE apparent at time of evaluation Final Primary Anesthesia Type: General (The anesthetic type performed was the same as planned.) Comments: Cuong Guerrero MD * Anesthesia Preprocedure Evaluation - Micah Ko MD - 01/10/2021 10:02 PM EDT Pre-Anesthesia Evaluation for: Harvey Espinosa a 40 y.o. male. Procedure(s): I&D ABSCESS, COMPLICATED OR MULTIPLE, HEAD/NECK (WRVU 2.45) Patient Active Problem List Diagnosis ??? Smokes [...] superficial, hand with infection 12/10/2015 Past Surgical History: Procedure Laterality Date ??? PRO LAP, CHOLECYSTECTOMY/GRAPH N/A 09/15/2020 LAPAROSCOPIC CHOLECYSTECTOMY WITH CHOLANGIOGRAM (WRVU 11.47) performed by Jorge Luis Rios MD [facility] MAIN OR Social History Tobacco Use ??? Smoking status: [...] home medications have been reviewed. Physical Exam: Preprocedure Vitals Current as of 01/10/21 2202 BP: Pulse: Resp: 14 SpO2: 97 Temp: Height: 188 cm (6' 2) (01/10/21) Weight: 81.6 kg (179 lb 14.4 oz) (01/10/21) BMI: 23.1 IBW: 82.2 kg (181 lb 4.8 oz) Last edited 01/10/21 1900 by MS Currently displaying vitals information from multiple entries within 90 minutes of most recent vitals. Airway Assessment: Mallampati: I TM distance: >3 FB Neck ROM: full Cardiovascular Assessment: Rhythm: regular Rate: normal Pulmonary Assessment: unlabored breathing Dental Assessment: - normal exam Misc Assessment: IV access: Peripheral line Other exam findings: Large neck mass, no trachea deviation, no respiratory distress Last Filed Perioperative Cognitive Screening None Anesthesia Plan: ASA 3 emergent general, with a(n) intravenous induction Region - Other Informed Consent: Anesthetic plan and risks discussed with patient and spouse. Plan discussed with resident. Attending NOTE Brief HPI: 40 y.o. with neck abscess with hx of IVDA to OR for I and D Diagnosis ??? Paget's bone disease ??? Smokes ??? Bipolar disorder ??? History of hepatitis C ??? PTSD (post-traumatic stress disorder) ??? Schizoaffective disorder ??? Chronic constipation ??? ADD (attention deficit disorder) ??? Opioid dependence on agonist therapy Past Medical History: Diagnosis Date ??? Bipolar 1 disorder ??? Cellulitis of hand 12/09/2015 ??? Injury, superficial, hand with infection 12/10/2015 BP Readings from Last 3 Encounters: 01/10/21 122/79 10/15/20 121/72 09/15/20 133/88 METS:>4 Cardiac Symptoms: denies LABS: Lab Results Component Value Date HGB 13.2 (L) 01/10/2021 PLATELET 387 (H) 01/10/2021 NA 138 01/10/2021 K 4.0 01/10/2021 CREATININE 0.93 01/10/2021 Type and Screen: No results found for: ABORH Past anesthetic problems: denies Previous airway notes (on eDH): MAC 4 grade 1 NPO status: Reviewed and appropriate Anesthetic Plan: GA Monitoring: Standard ASA monitors Anesthesia Screening documented in this encounter Plan of Treatment Not on file documented as of this encounter Visit Diagnoses Not on filedocumented in this encounter Administered Medications Inactive Administered Medications - up to 3 most recent administrations Medication Order MAR Action Action Date Dose Rate Site clindamycin (Cleocin) (150 mg/mL) injection Intravenous, PRN, Starting on 01/10/21 at 2323, Until 01/11/21 at 0015, Anesthesia Intra-op, Routine Given 01/10/2021 11:23 PM EDT 900 mg fentaNYL (pf) (50 mcg/mL) multi-dose injection Intravenous, PRN, Starting on 01/10/21 at 2306, Until 01/11/21 at 0015, Anesthesia Intra-op, Routine Given 01/10/2021 11:06 PM EDT 100 mcg glycopyrrolate (Robinul) (0.2 mg/mL) multi-dose injection Intravenous, PRN, Starting on 01/10/21 at 2355, Until 01/11/21 at 0015, Anesthesia Intra-op, Routine Given 01/10/2021 11:55 PM EDT 0.8 mg HYDROmorphone (Dilaudid) (2 mg/mL) multi-dose injection solution Intravenous, PRN, Starting on 01/10/21 at 2308, Until 01/11/21 at 0015, Anesthesia Intra-op, Routine Given 01/10/2021 11:15 PM EDT 0.4 mg Given 01/10/2021 11:13 PM EDT 0.8 mg Given 01/10/2021 11:08 PM EDT 0.8 mg lactated ringers infusion Intravenous, CONTINUOUS PRN, Starting on 01/10/21 at 2242, Until 01/11/21 at 0015, Anesthesia Intra-op New Bag 01/10/2021 10:42 PM EDT lidocaine (pf) (Xylocaine) (20 mg/mL) 2% injection syringe Intravenous, PRN, Starting on 01/10/21 at 2248, Until 01/11/21 at 0015, Anesthesia Intra-op, Routine Given 01/10/2021 10:48 PM EDT 50 mg neostigmine (Bloxiver) (1 mg/mL) injection Intravenous, PRN, Starting on 01/10/21 at 2355, Until 01/11/21 at 0015, Anesthesia Intra-op, Routine Given 01/10/2021 11:55 PM EDT 5 mg ondansetron (pf) (Zofran) (2 mg/mL) injection Intravenous, PRN, Starting on 01/10/21 at 2340, Until 01/11/21 at 0015, Anesthesia Intra-op, Routine Given 01/10/2021 11:40 PM EDT 4 mg PHENYLephrine in NS (PF) (GERONIMO-SYNEPHRINE) 0.8 mg/10 mL (80 mcg/mL) multi-dose injection Syrg Intravenous, PRN, Starting on 01/10/21 at 2303, Until 01/11/21 at 0015, Anesthesia Intra-op, Routine Given 01/10/2021 11:03 PM EDT 80 mcg propofoL (Diprivan) 10 mg/mL bolus injection (Anesthesia) Intravenous, PRN, Starting on 01/10/21 at 2249, Until 01/11/21 at 0015, Anesthesia Intra-op Given 01/10/2021 10:55 PM EDT 100 mg Given 01/10/2021 10:49 PM EDT 250 mg rocuronium (Zemuron) (10 mg/mL) multi-dose injection Intravenous, PRN, Starting on 01/10/21 at 2315, Until 01/11/21 at 0015, Anesthesia Intra-op, Routine Given 01/10/2021 11:15 PM EDT 20 mg Given 01/10/2021 11:08 PM EDT 30 mg succinylcholine (Anectine;Quelicin) (20 mg/mL) injection Intravenous, PRN, Starting on 01/10/21 at 2250, Until 01/11/21 at 0015, Anesthesia Intra-op, Routine Given 01/10/2021 10:50 PM EDT 100 mg documented in this encounter Care Teams Dairy Clerk Relationship Specialty Start Date End Date Laura Ho MD [address] [place] [address] PCP - General Family Medicine 06/28/16 documented as of this encounter
--- OUTSIDE RECORDS SUMMARY | 2024-06-21 15:31 | XMS_ITS | Encounter Summary ---
Author Organization [facility] Address [facility] [address] Care Team Providers Care Model Maker Scale Name Role Phone Laura Ho MD Primary Care Provider [phone] Reason for Visit * Auth/Cert Specialty Diagnoses / Procedures Referred By Govind townsend Referred To Contact Diagnoses BILARY COLIC Procedures PRO LAP, CHOLECYSTECTOMY/GRAPH LAPAROSCOPIC CHOLECYSTECTOMY WITH CHOLANGIOGRAM (WRVU 11.47) Referral ID Status Reason Start Date Expiration Date Visits Re quested Visits Authorized [id number] 1 1 Encounter Details Date Type Department Care Team (Late st Contact Info) Description 09/15/2020 10:40 AM EST - 09/15/2020 1:17 PM EST Surgery [place] [phone] Jorge Luis Arizmendi MD [facility] [place] [address] LAPAROSCOPIC CHOLECYSTECTOMY WITH CHOLANGIOGRAM (WRVU 11.47) Social History Tobacco Use Types Packs/Day Years [...] Sign Reading Time Taken Comments Blood Pressure 153/95 09/15/2020 1:15 PM EST Pulse 59 09/15/2020 1:15 PM EST Temperature 36.4 ??C (97.5 ??F) 09/15/2020 1:11 PM ES T Respiratory Rate 18 09/15/2020 1:15 PM EST Oxygen Saturation 100% 09/15/2020 1:15 PM EST Inhaled Oxygen Concentration - - [...] 6-8 hours after your surgery, please call [phone] before 5 PM weekdays and [phone] after 5 PM and weekends to discuss [...] 101.3 F. The number for questions is [phone] before 5 PM weekdays and [phone] after 5 PM and weekends. Follow-up: Follow-up appointment will be scheduled with Dr. Arizmendi in 4 weeks. Appointment will be mailed to you. Please call [phone] (clinic number for appointments) to confirm date [...] Johnson MD - 09/15/2020 10:49 AM EST [facility] Minimally Invasive Surgery Interval History and [...] recently seen at an outside ER at [facility] notable for cholelithiasis in the setting of [...] with him today the entire time in [id number] conversation regarding pathophysiology of gallstones as well [...] Arizmendi MD - 09/15/2020 11:50 AM EST [facility] Operative Note Patient Name: Harvey Espinosa : [id number] MR#: [id number] Case Date: 09/15/2020 Surgeon: Surgeon(s) and Role: [...] the involvement of a resident. JORGE LUIS ARIZMENDI MD 09/15/2020 documented in this encounter Plan of Treatment Not on file documented as of this encounter Procedures Procedure Name Priority Date/Time Associated Diagnosis Comments SURGICAL PATHOLOGY REPORT Routine 09/15/2020 12:41 PM EST SPECIMEN TO PATHOLOGY Routine 09/15/2020 12:41 PM EST XR FLUORO NO RAD <1HR - OR USE Routine 09/15/2020 12:39 PM EST Lap, Cholecystectomy/Gra ph (00259) 09/15/2020 11:24 AM EST BILARY COLIC documented in this encounter Results * Surgical Pathology Report (09/15/2020 12:41 PM EST) Final Diagnosis [id number] ? Location: [facility]; [facility]; The signing pathologist has (i) examined the relevant preparation(s) for the specimen(s) and (ii) rendered or confirmed the diagnosis(es). . ?Surgical Pathology DIAGNOSIS Gallbladder: - ??Cholelithiasis. Electronically signed by: ??Robert Bazzi MD Verified: ??09/18/2020 ?Pathologist Performed at: ??-[facility] Dept. of Pathology, [place], [place] SPECIMEN(S) SUBMITTED A - gallbladder, excision (1) CLINICAL INFORMATION Biliary colic SPECIMEN PROCESSING A - Labeled/Fixative: Gallbladder, fresh. Quantity/Size: ??Single, 8.5 x 3.2 x 2.7 cm. Specimen Description: Gallbladder, received intact. Serosa: Scurry-red, congested. Adventitia: Unremarkable. Lumen contents: Yellow, viscous, bile. Gallstones: Present: Single, yellow gallstone, 0.9 cm. Mucosa: Scurry-yellow and velvety. Wall: 0.2 cm thick. Duct: 0.3 cm, patent. Ink Designation: The hepatic margin is inked black Sections/Processi ng: Absence Management Consultant sections in 1 cassettes as follows: ?A1: ??cystic duct margin and litigation claim representative mucosa. ??sns 09/18/2020 4:07 PM EST [facility] GALLBLADDER STRUCTURE / Unknown 09/15/2020 12:41 PM EST 09/15/2020 12:41 PM EST Jorge Luis Arizmendi MD PATHOLOGY/CYTOLOGY ORDERABLES Performing Organization Address [facility] Co de Phone Number [facility] [place] [address] * Specimen to Pathology (09/15/2020 12:41 PM EST) AP Specimen 09/15/2020 12:4 1 PM EST 09/15/2020 12:41 PM EST Narrative [facility] - 09/15/2020 12:41 PM EST Specimen requisition ordered. ??Separate Pathology report to follow Jorge Luis Arizmendi MD PATHOLOGY/CYTOLOGY ORDERABLES Performing Organization Address [facility] Co de Phone Number [facility] [place] [address] * XR Fluoro No Rad <1Hr - OR Use (09/15/2020 12:39 PM EST) Narrative RAD - 09/15/2020 12:41 PM EST This exam is auto-finalizing. No interpretation was done. Jorge Luis Arizmendi MD IMG FLUORO ORDERABL ES Performing Organization Address City/[facility]/ZIP Co de Phone Number [facility] [place], [place] documented in this encounter Visit Diagnoses Not on filedocumented in this encounter Administered Medications Inactive Administered Medications - up to 3 most recent administrations Medication Order MAR Action Action Date Dose Rate Site BUpivacaine (pf) (Marcaine) (2.5 mg/mL) 0.25% injection ONCE PRN, Starting on Tue09/15/20 at 1206, Until Tue09/15/20 at 1920, Intra-Operative (Intra-Procedure), Routine Given 09/15/2020 12:52 PM EST 26 mLs 19- Surgical Site Given 09/15/2020 12:06 PM EST 4 mLs 1 9- Surgical Site ketorolac (Toradol) (15 mg/mL) injection 15 [...] 50 mL infusion (COMPLETED) 900 mg, Intravenous, CERTIFIED REGISTERED DENTAL ASSISTANT TO O.R., 1 dose, On Tue09/15/20 at [...] RN) documented in this encounter Care Teams Model Maker Scale Relationship Specialty Start Date End Date Laura Ho MD [address] [place] [address] PCP - General Family Medicine 06/28/16 documented as of this encounter
--- OUTSIDE RECORDS SUMMARY | 2024-06-21 15:31 | XMS_ITS | Encounter Summary ---
Author Organization [facility] Address [facility] [place] [place] [address] Care Team Providers Care Correctional Supply Supervisor Name Role Phone Laura Ho MD Primary Care Provider [phone] Reason for Visit * Reason Comments Establish Care * Consultation (Routine) - Closed Specialty Diagnoses / Procedures Referred By Contac t Referred To Contact General Surgery Diagnoses Non-intractable vomiting with nausea, unspecified vomiting type Harvey Roblero PA [facility] [place] [address] [facility] [address] [place] [address] Referral ID Status Reason Start Date Expiration Date V isits Requested Visits Authorized [id number] Closed Consult, Test & Treat 08/05/2020 08/05/2021 1 1 Encounter Details Date Type Department Care Team (Late st Contact Info) Description 09/03/2020 1:00 PM EST Office [place] [address] Jorge Luis Rios MD [facility] [place] [address] Biliary colic Social History Tobacco Use Types Packs/Day Years [...] Sign Reading Time Taken Comments Blood Pressure 111/68 09/03/2020 12:48 PM EST Pulse 64 09/03/2020 12:48 PM EST Temperature - - Respiratory Rate 18 09/03/2020 12:48 PM EST Oxygen Saturation - - Inhaled Oxygen Concentration - - Weight 85.3 kg (188 lb) 09/03/2020 12:48 PM EST Height 185.4 cm (6' 1) 09/03/2020 12:48 PM EST Body Mass Index 24.8 09/03/2020 12:48 PM EST documented in this encounter Progress Notes * Jorge Luis Rios MD - 09/03/2020 1:00 PM EST Patient is a 40-year-old gentleman who was referred for possible cholecystectomy. He was recently seen at an outside ER at [facility] notable for cholelithiasis in the setting of [...] with him today the entire time in [id number] conversation regarding pathophysiology of gallstones as well [...] surgery at some point inthe near future documented in this encounter Plan of Treatment Not on file documented as of this encounter Visit Diagnoses Diagnosis Biliary colic Calculus of gallbladder without mention of cholecystitis or obstruction documented in this encounter Care Teams Correctional Supply Supervisor Relationship Specialty Start Date End Date Laura Ho MD [address] [place] [address] PCP - General Family Medicine 06/28/16 documented as of this encounter
--- OUTSIDE RECORDS SUMMARY | 2024-06-21 15:31 | XMS_ITS | Encounter Summary ---
Author Organization [facility] Address [facility] [address] [place] [place] [address] Care Team Providers Care Manager Web Name Role Phone Laura Ho MD Primary Care Provider [phone] Encounter Details Date Type Department Care Team (Latest Contact Info) Description 09/05/2019 10:10 AM EST Ancillary Procedure Radiology Library at [facility] [place] [address] Gorge Edgar MD [facility] [place] [address] Abnormal findings on diagnostic imaging of limbs Social History Tobacco Use Types Packs/Day Years Used Date Smoking Tobacco: Every Day Alcohol Use Standard Drinks/Week Comments No 0 (1 standard drink = 0.6 oz pur e alcohol) Sex and Gender Information Value Date Recorded Sex Assigned at Not on file Gender Identity Not on file Sexual Orientation Not on file documented as of this encounter Plan of Treatment Not on file documented as of this encounter Procedures Procedure Name Priority Date/Time Associated Diagnosis Comments REQUEST FOR 2ND READ MR KNEE Routine 09/05/2019 10:08 AM EST Abnormal findings on diagnostic imaging of limbs documented in this encounter Results * Request for 2nd read MR Knee (09/05/2019 10:08 AM EST) Anatomical Region Laterality Modality SO Impressions 09/05/2019 10:53 AM EST 1. ??Abnormal distal femur represents Paget disease. No pathologic fracture, soft tissue component or periostitis. 2. 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 3. ??Moderate is effusion containing debris or hypertrophic synovium represents synovitis. 4. ??Degenerative signal in anterior horn of lateral meniscus without nathen tear. ? Thank you for letting us participate in the care of this patient. For questions regarding this report, please contact the number below. ? Narrative 09/05/2019 10:53 AM EST EXAMINATION: REQUEST FOR 2ND READ MR KNEE CLINICAL HISTORY: 6 mos pain, popping, locking left knee; question process distal femur marrow on imaging; What Modality is the exam? MRI; Body Part (please add comments as necessary): left distal femur; I believe a reinterpretation of this exam may alter care of Patient. Yes, ,entered by ordering service COMPARISON: Radiographs, August 2019. TECHNIQUE: Routine noncontrast MRI of the Left knee was performed. FINDINGS: The kjbpy-eg-gqrt includes only 8 cm length of distal femur, part of the distal femoral lesion. BONES: Femur-distal femur as diffuse cortical thickening with coarsened trabeculae. The marrow signal is heterogeneous marrow signal, slightly dark on T1 and increased T2 signal, but without focal lesion. The abnormal signal extends to the distal femoral bone end. No pathologic fracture or soft tissue mass. 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 No periostitis or malignant degeneration in the visualized bone segments. There are diffuse small osteophytes. FLUID: A moderate size effusion containing septations and debris represents synovitis. A small popliteal cyst contains similar hypointense debris. MEDIAL COMPARTMENT: No medial meniscal tear. Diffuse thinning of the medial compartment cartilage with fissuring is most pronounced on the weightbearing surface of the medial femoral condyle. LATERAL COMPARTMENT: Degenerative signal in anterior horn without nathen tear. Normal body and posterior horn of lateral meniscus. There is a small full-thickness cartilage defect on the lateral femoral condyle accompanied by deep cartilage fissuring. PATELLOFEMORAL COMPARTMENT: Normal patellofemoral alignment. Cartilage thinning and deep fissuring of the trochlear cartilage is present, series 702 image 91. CRUCIATE LIGAMENTS: No cruciate ligament interruption. COLLATERAL LIGAMENTS: Normal collateral ligaments. TENDONS: no tendon interruption. SOFT TISSUES: No soft tissue mass seen. A small popliteal lymph node is 7 mm in short axis, series 702 image 126. Procedure Note Luci Kapoor MD - 09/05/2019 EXAMINATION: REQUEST FOR 2ND READ MR KNEE CLINICAL HISTORY: 6 mos pain, popping, locking left knee; questionprocess distal femur marrow on imaging; What Modality is the exam? MRI; BodyPart (please add comments as necessary): left distal femur; I believe a reinterpretation of this exam may alter care of Patient. Yes, ,enteredby ordering service COMPARISON: Radiographs, August 2019. TECHNIQUE: Routine noncontrast MRI of the Left knee was performed. FINDINGS: The eqbwk-iy-mwit includes only 8 cm length of distal femur, part of thedistal femoral lesion. BONES: Femur-distal femur as diffuse cortical thickening with coarsenedtrabeculae. The marrow signal is heterogeneous marrow signal, slightly dark on T1 andincreased T2 signal, but without focal lesion. The abnormal signal extends to thedistal femoral bone end. No pathologic fracture or soft tissue mass. Itcorresponds to the radiographic diagnosis of Paget disease. No periostitis or malignant degeneration in the visualized bone segments. There are diffuse small osteophytes. FLUID: A moderate size effusion containing septations and debrisrepresents synovitis. A small popliteal cyst contains similar hypointense debris. MEDIAL COMPARTMENT: No medial meniscal tear. Diffuse thinning of themedial compartment cartilage with fissuring is most pronounced on theweightbearing surface of the medial femoral condyle. LATERAL COMPARTMENT: Degenerative signal in anterior horn without franktear. Normal body and posterior horn of lateral meniscus. There is a small full-thickness cartilage defect on the lateral femoral condyle accompaniedby deep cartilage fissuring. PATELLOFEMORAL COMPARTMENT: Normal patellofemoral alignment. Cartilagethinning and deep fissuring of the trochlear cartilage is present, series 702 image91. CRUCIATE LIGAMENTS: No cruciate ligament interruption. COLLATERAL LIGAMENTS: Normal collateral ligaments. TENDONS: no tendon interruption. SOFT TISSUES: No soft tissue mass seen. A small popliteal lymph node is 7mm in short axis, series 702 image 126. IMPRESSION 1. Abnormal distal femur represents Paget disease. No pathologicfracture, soft tissue component or periostitis. 2. Osteoarthropathy of the knee with cartilage injury in all 3compartments. 3. Moderate is effusion containing debris or hypertrophic synoviumrepresents synovitis. 4. Degenerative signal in anterior horn of lateral meniscus without franktear. Thank you for letting us participate in the care of this patient. Forquestions regarding this report, please contact the number below. Gorge Edgar MD IMG OUTSIDE INTERPRE TATION ORDERABLES documented in this encounter Visit Diagnoses Diagnosis Abnormal findings on diagnostic imaging of limbs Other nonspecific (abnormal) findings on radiological and other examinations of body structure documented in this encounter Care Teams Manager Web Relationship Specialty Start Date End Date Laura Ho MD [address] [place] [address] PCP - General Family Medicine 06/28/16 documented as of this encounter
--- OUTSIDE RECORDS SUMMARY | 2024-06-21 15:31 | XMS_ITS | Encounter Summary ---
Author Organization [facility] Address [facility] [address] [place] [address] Care Team Providers Care Heavy Lift Rigger Name Role Phone Laura Ho MD Primary Care Provider [phone] Reason for Visit * Reason Comments Skin Lesion Encounter Details Date Type Department Care Team (Late st Contact Info) Description 05/19/2020 11:00 AM EST [facility] [address] [place] [address] Leoncio Byers MD [facility] [address] [facility] [place] [address] Hand eczema; Prurigo nodularis; Pedal edema Social History Tobacco Use Types Packs/Day Years [...] as of this encounter Progress Notes * Leoncio Byers - 05/19/2020 11:00 AM EST Images from the original note were not included. DERMATOLOGY - NEW PATIENT NOTE Date of service: 05/19/2020 Harvey Espinosa : 1980, 40 y.o. Chief Complaint: Chief Complaint Patient presents with ??? Skin Lesion HPI: Harvey Espinosa is a 40 y.o. male referred by Laura Ho MD with the following concerns: New patient here today for a focused exam. Patient reports of discolored lesions on the bilateral lower legs and feet that have been present for a few years. The lesions on the backs of the legs are pruritic and sore, although the lesions on the feet are not pruritic. Patient does endorse some swelling of the legs and feet. Denies taking any antibiotics or using any compression stockings. Patient also has some splitting and cracking of the hands that he is not currently treating with anything. He has a history of hand swelling after getting an infection in his hands. Relevant Skin History: - Skin cancer (including type): no Family History: Melanoma: none Relevant Social History: - 3 children - Currently unemployed, but working on his house - Current smoker Meds: Current Outpatient Medications Medication Sig Dispense Refill ??? buspirone HCl (BUSPIRONE ORAL) Take by mouth. ??? lithium 300 mg Capsule Take 1,500 mg by mouth nightly. ??? QUEtiapine (SEROqueL) 100 mg Tablet 1/2-1 ??? tamsulosin (Flomax) 0.4 mg Capsule take 1 capsule by mouth daily ??? buprenorphine-nalOXone (SUBOXONE) 8-[address] 16 mg under the tongue daily. ??? cloNIDine (CATAPRES) 0.1 mg Tablet Take 0.1 mg by mouth nightly. ??? Dexmethylphenidate 30 mg Capsule, Multiphasic Rel.50-50 Take 30 mg by mouth daily. ??? lamoTRIgine (LAMICTAL) 25 mg Tablet Take 50 mg by mouth nightly. No current facility-administered medications for this visit. Allergies: Allergies Allergen Reactions ??? Pcn [Penicillins] Review of Systems: - General: Feels well - Skin: No other skin concerns. Examination: - Constitutional: Patient was alert, well-appearing and in no noticeable distress. - Focused Exam: Skin examination of the face, hands, feet, and lower extremities was normal with the exception of the findings listed below - A nurse/MA was present and on standby during my examination. Diagnosis/Skin findings/Assessment/Plan: #. 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 - Discussed skin findings and etiology - Start Rx: Triamcinolone 0.1% Ointment: Apply twice daily to affected areas of the hands for 21 days, then take 1 week off, repeat as needed. Recommend occluding with gloves at night after application. #. Prurigo Nodularis - On the bilateral calves there are indurated scaly nodules - Discussed skin findings and etiology (itch, scratch, itch cycle) - Instructed patient to avoid scratching at areas - Start Rx: Triamcinolone 0.1% Ointment: Apply twice daily to affected areas of the lower legs for 21 days, then take 1 week off, repeat as needed #. Pedal Edema - 1+ pedal edema to the calf, prominent vessels on the feet - Discussed possible etiologies in depth - Discussed treatment options including compression stockings, keeping legs above heart-level, exercise RTC: 3 months for follow up of eczema and prurigo nodularis, or sooner if needed, scheduled upon exiting The following photos were obtained with patient consent: Note initiated by MAY Malcolm. I, MAY Malcolm, have performed the documentation for this encounter in the presence of andacting as a scribe for Leoncio Byers MD. I performed the services which were documented by the scribe, and I agree with the accuracy of the documentation in this encounter. Leoncio Byers MD Reviewed and signed by Leoncio Byers MD Resident in Dermatology [facility] Staff event specialist food demonstrator: Wesley Mueller MD Department of Dermatology [facility] * Wesley Mueller MD - 05/19/2020 11:00 AM EST I was the supervising physician working with Dermatology resident, Dr. Byers, in the Dermatology Clinic during this patient visit. The level of resident supervision for this patient visit was indirect supervision with direct supervision immediately available (definition: [facility] [facility] [place] Statement on Graduate Medical Education, Supervision of Graduate Medical Trainees). I was immediately available to Dr. Zeeshan for questions and discussion regarding this visit. I have reviewed the encounter note details and level of service. WESLEY MUELLER MD [facility] Staff Physician documented in this encounter Plan of Treatment Not on file documented as of this encounter Visit Diagnoses Diagnosis Hand eczema Contact dermatitis and other eczema, due to unspecified cause Prurigo nodularis Lichenification and lichen simplex chronicus Pedal edema Edema documented in this encounter Care Teams Heavy Lift Rigger Relationship Specialty Start Date End Date Laura Ho MD [address] [place] [address] PCP - General Family Medicine 06/28/16 documented as of this encounter
--- OUTSIDE RECORDS SUMMARY | 2024-06-21 15:31 | XMS_ITS | Encounter Summary ---
Author Organization [facility] [place] [address] Care Team Providers Care Social Work Lecturer Name Role Phone Laura Ho MD Primary Care Provider [phone] Reason for Referral * Consultation (Routine) - Closed Specialty Diagnoses / Procedures Referred By Contac t Referred To Contact General Surgery Diagnoses Non-intractable vomiting with nausea, unspecified vomiting type Harvey Roblero, [facility] [place] [address] [facility] [address] [address] Referral ID Status Reason Start Date Expiration Date V isits Requested Visits Authorized [id number] Closed Consult, Test & Treat 08/05/2020 08/05/2021 1 1 Reason for Visit * Reason Comments Emesis Encounter Details Date Type Department Care Team (Late st Contact Info) Description 08/05/2020 11:22 AM EST - 08/05/2020 4:32 PM EST [place] [address] Non-intractable vomiting with nausea, unspecified vomiting type; Calculus of gallbladder without cholecystitis without obstruction Discharge Disposition: Home Social History Tobacco Use [...] Sign Reading Time Taken Comments Blood Pressure 125/66 08/05/2020 4:06 PM EST Pulse 66 08/05/2020 4:21 PM EST Temperature 36.8 ??C (98.2 ??F) 08/05/2020 4:06 PM ES T Respiratory Rate 17 08/05/2020 4:21 PM EST Oxygen Saturation 98% 08/05/2020 4:21 PM EST Inhaled Oxygen Concentration - - Weight 84.1 kg (185 lb 6.4 oz) 08/05/2020 11:14 AM EST Height - - Body Mass Index 24.46 09/25/2019 3:21 PM EDT documented in this encounter Discharge Instructions * Discharge Instructions* Harvey Roblero PA - 08/05/2020 4:15 PM EST You were seen today for nausea/vomiting with gallstone found on ultrasound today. Please do the following to help your symptoms improve: 1. Please follow-up with your primary care provider soon as possible for recheck of symptoms. Talk to them about repeat outpatient formal ultrasound and possible surgery referral. 2. You were given a referral to general surgery and may follow-up with them if you wish to discuss further steps regarding your gallstones. 3. Take Zofran for nausea and vomiting. 4. Drink clear liquids and progress to bland foods as you begin to feel better. 5. Return to the emergency department for any worsening or changing symptoms such as fever greater than 101 ??F, worsening abdominal pain, worsening vomiting, or bloody stool. documented in this encounter Medications at Time of Discharge Medication Sig Dispensed Refills Start Date End Date cloNIDine (CATAPRES) 0.1 mg/24 hr Patch Weekly [...] 08/05/2020 10/15/2020 documented as of this encounter ED Notes * Kd Cowan RN - 08/05/2020 3:09 PM EST Pt has returned from CT, is in NAD, call armendariz in reach, clinical status unchanged. * Kd Cowan RN - 08/05/2020 2:[address] with PATTERN HAND * Kd Cowan RN - 08/05/2020 2:00 PM EST Ernesto BELL has been in to reassess pt. Pt has been resting quietly on stretcher, family/friend @his side, call armendariz in reach. Pt has not c/o feeling nauseas or vomited since coming to his room. * Harvey Roblero PA - 08/05/2020 12:03 PM EST [place]: Harvey Espinosa : 1980 Date of Service: 08/05/2020 Chief Complaint: Emesis History of Present Illness: 40 y.o. y/o male with hx of IV drug use on suboxone, Pagets disease presents to the emergency department with concern for vomiting for the last 3 days in the setting of a 20 to 30 pounds unintentional weight loss over the last several months. Patient reports not feeling well over the last several days with approximately 5 total episodes of vomiting. Denies significant abdominal pain. Does report to increased thirst and increased urination. Notes that he eats a large amount of tassel clipper treats. Upto 1 box/day. Is also concerned about his prostate and that he may have prostate cancer. RequestingPSA testing. Reports some chronic leg swelling. Also reports constipation. Last bowel movement yeste rday. Denies fever, bloody stool, bloody emesis, diarrhea, dysuria, or increased leg swelling. ROS 10 point review of systems reviewed and negative unless otherwise stated in HPI Past Medical History: Diagnosis Date ??? Bipolar 1 disorder History reviewed. No pertinent surgical history. Social History Tobacco Use ??? Smoking status: Current Every Day Smoker Types: Cigarettes ??? Smokeless tobacco: Never Used Substance Use Topics ??? Alcohol use: Yes Alcohol/week: 6.0 standard drinks Types: 6 Cans of beer per week ??? Drug use: Not Currently Types: IV No current facility-administered medications for this encounter. Current Outpatient Medications: ??? prazosin (Minipress) 1 mg Capsule, Take 4 mg by mouth nightly., Disp: , Rfl: ??? cloNIDine (CATAPRES) 0.1 mg/24 hr Patch Weekly, Change 1 patch on the skin once a week., Disp: , Rfl: ??? alendronate (Fosamax) 70 mg Tablet, Take 70 mg by mouth every 7 days. Take in AM with full glass of water, on an empty stomach. Do not lie down for 30 min., Disp: , Rfl: ??? ondansetron ODT (Zofran ODT) 4 mg Tablet, Rapid Dissolve, Take 1-2 tablets by mouth every 8 hours as needed for Nausea., Disp: 20 tablet, Rfl: 1 ??? buspirone HCl (BUSPIRONE ORAL), Take 5 mg by mouth nightly., Disp: , Rfl: ??? triamcinolone (KENALOG) 0.1 % Ointment, Apply twice daily to the affected areas on the hands and lower legs for 21 days, then take one week off, and repeat as needed. Can occlude with cotton gloves after application to the hands at night, Disp: 80 g, Rfl: 2 ??? QUEtiapine (SEROqueL) 100 mg Tablet, Take 400 mg by mouth nightly., Disp: , Rfl: ??? lithium 300 mg Capsule, Take 1,050 mg by mouth nightly., Disp: , Rfl: ??? buprenorphine-nalOXone (SUBOXONE) 8-2 mg Film, Place 16 mg under the tongue daily., Disp: , Rfl: ??? Dexmethylphenidate 30 mg Capsule, Multiphasic Rel.50-50, Take 30 mg by mouth daily., Disp: , Rfl: ??? lamoTRIgine (LAMICTAL) 25 mg Tablet, Take 125 mg by mouth nightly., Disp: , Rfl: Allergies Allergen Reactions ??? Pcn [Penicillins] Physical Exam: Vitals: BP 125/66 Pulse 66 Temp 36.8 ??C (98.2 ??F) (Oral) Resp 17 Wt 84.1 kg (185 lb 6.4 oz) SpO2 98% BMI 24.46 kg/m?? Physical Exam Vitals signs and nursing note reviewed. Constitutional: General: He is not in acute distress. Appearance: He is well-developed. He is not diaphoretic. HENT: Head: Normocephalic and atraumatic. Nose: Nose normal. Mouth/Throat: Mouth: Mucous membranes are moist. Pharynx: Oropharynx is clear. No oropharyngeal exudate. Eyes: General: Right eye: No discharge. Left eye: No discharge. Extraocular Movements: Extraocular movements intact. Conjunctiva/sclera: Conjunctivae normal. Pupils: Pupils are equal, round, and reactive to light. Cardiovascular: Rate and Rhythm: Normal rate and regular rhythm. Pulses: Normal pulses. Heart sounds: Normal heart sounds. No murmur. Pulmonary: Effort: Pulmonary effort is normal. No respiratory distress. Breath sounds: Normal breath sounds. No wheezing or rales. Abdominal: General: Abdomen is flat. Bowel sounds are normal. There is no distension. Palpations: Abdomen is soft. There is no mass. Tenderness: There is no abdominal tenderness. There is no guarding or rebound. Musculoskeletal: Right lower leg: No edema. Left lower leg: No edema. Skin: General: Skin is warm and dry. Findings: No rash. Neurological: Mental Status: He is alert and oriented to person, place, and time. Sensory: No sensory deficit. Results: Recent Results (from the past 24 hour(s)) Basic Metabolic Panel (non-fasting) Result Value Ref Range Glucose Lvl 89 65 - 199 mg/dL BUN 11 10 - 20 mg/dL Creatinine 1.26 0.80 - 1.50 mg/dL Sodium 139 135 - 145 mmol/L Potassium 3.5 3.5 - 5.0 mmol/L Chloride 99 98 - 107 mmol/L CO2 26 22 - 31 mmol/L Anion Gap 14 5 - 15 mmol/L Calcium 10.8 (H) 8.5 - 10.5 mg/dL Estimated GFR 70 >=60 mL/min/1.73 m?? Hepatic Function Panel Result Value Ref Range Total Protein 8.9 (H) 6.1 - 8.0 gm/dL Albumin 5.4 (H) 3.2 - 5.2 gm/dL AST 18 0 - 39 unit/L ALT 12 0 - 55 unit/L Alk Phos 75 40 - 130 unit/L Total Bilirubin 0.8 0.2 - 1.3 mg/dL Bili, Direct 0.2 0.0 - 0.3 mg/dL Lipase Result Value Ref Range Lipase 12 0 - 60 unit/L Hemoglobin A1c Result Value Ref Range Hemoglobin A1C 4.9 4.3 - 5.6 % Est Avg Gluc 93 mg/dL PSA Screen Result Value Ref Range PSA Total 0.88 0.00 - 4.00 ng/mL Hemogram Result Value Ref Range WBC 14.4 (H) 4.0 - 9.5 x10(3)/mcL RBC 5.37 4.58 - 5.54 x10(6)/mcL Hemoglobin 15.8 13.7 - 16.5 gm/dL Hematocrit 49.0 (H) 40.5 - 48.5 % MCV 91.2 82.9 - 93.1 fL MCH 29.4 27.5 - 32.1 pg MCHC 32.2 32.0 - 35.7 gm/dL Platelets 378 (H) 145 - 357 x10(3)/mcL RDWSD 44.0 36.0 - 45.0 fL RDWCV 13.1 11.4 - 13.8 % MPV 10.3 7.6 - 12.9 fL nRBC % Auto 0.0 % nRBC Abs Auto 0.000 0.000 - 0.000 x10(3)/mcL Differential, Automated Result Value Ref Range Neutrophils % 77.7 % Neutr Abs (ANC) 11.19 (H) 1.70 - 6.10 x10(3)/mcL Lymphocytes % 15.8 % Lymphocytes Abs 2.3 0.9 - 3.2 x10(3)/mcL Monocytes % 3.7 % Monocyte Abs 0.5 0.3 - 0.9 x10(3)/mcL Eosinophils % 1.7 % Eosinophils Abs 0.2 0.0 - 0.4 x10(3)/mcL Basophils % 0.8 % Basophils Abs 0.1 0.0 - 0.1 x10(3)/mcL Immature Gran % 0.30 % Teena Gran Abs 0.05 (H) 0.00 - 0.04 x10(3)/mcL Blue Tube HOLD Result Value Ref Range Blue Hold Sample in lab. Gold Tube HOLD Result Value Ref Range Gold Hold Sample in lab. Blood Gas Venous Result Value Ref Range pH Sina 7.32 7.32 - 7.42 pCO2 Sina 46 41 - 51 mmHg pO2 Sina 27 25 - 40 mmHg HCO3 Sina 23.2 mmol/L BE Sina -2.8 mmol/L Hgb Blood Gas 16.6 (H) 13.7 - 16.5 gm/dL O2HB Sina 50.8 % COHB Sina 4.4 % METHB Sina 0.3 <=1.5 % Na Whole Blood 137 135 - 145 mmol/L K Whole Blood 3.6 3.5 - 5.0 mmol/L ICa Whole Blood 1.29 1.15 - 1.33 mmol/L CL Whole Blood 100 98 - 107 mmol/L Gluc Whole Bld 87 65 - 199 mg/dL Lactate WB 1.5 0.5 - 2.2 mmol/L BGas Source Venous Urinalysis with reflex Culture Specimen: Urine Result Value Ref Range Glucose UA Negative Negative mg/dL Protein UA 30 (A) Negative mg/dL Bilirubin UA Negative Negative mg/dL Urobilinogen UA Normal Normal mg/dL pH UA 6.5 5.0 - 8.0 Blood UA Negative Negative mg/dL Ketones UA 15 (A) Negative mg/dL Nitrite UA Negative Negative Leukocytes UA Small (A) Negative mcL Appearance UA Clear Clear Spec [place] UA 1.018 1.006 - 1.030 Color UA Yellow Yellow Culture Reflexed No Urinalysis Microscopic Exam Result Value Ref Range RBC UA 2 0 - 3 /HPF WBC UA 9 (H) 0 - 3 /HPF Squam Epith UA 2 <=4 /HPF Hyaline Cast UA 9 (H) 0 - 2 /LPF CT Abdomen & Pelvis w Contrast Final Result 1. Mild intrahepatic and extrahepatic biliary ductal dilatation is of uncertain clinical significance in the setting of normal LFTs. Clinical correlation with location and nature of pain is needed to assess for possible intermittent or recurrent obstruction. The 2018 ultrasound images were reviewed and there may have been mild intrahepatic ductal dilatation at that time. 2. Review of the 2018 ultrasound indicates that the patient has a history of hepatitis C virus. Please note, the current CT technique cannot exclude hypervascular masses such as hepatocellular carcinoma. 3. No acute inflammatory or obstructing process of bowel/mesentery. I have personally reviewed the image(s) and the resident's interpretation and agree with the findings, Kelsey Lynn MD at 08/05/2020 3:23 PM Thank you for letting us participate in the care of this patient. For questions regarding this report, please contact the number below. Electronically signed by: Kelsey Lynn MD, [facility] ([phone]), at 08/05/2020 3:23 PM Bedside right upper quadrant ultrasound: Single gallstone in the gallbladder without evidence of cholecystitis. Gallbladder wall measures 1.5 mm. Common bile duct measures 4.4 mm. Reviewed by attending MD. Procedures: Medical Decision Makin y.o. male presenting with nausea and vomiting as well as gallbladder found on ultrasound. Patient is overall well-appearing. Vital signs normal. Given patient's report of weight loss and nausea and vomiting, I obtained CT scan of the abdomen to evaluate for large obvious mass or other acute etiology of vomiting. There was no evidence of mass or acute abdominal pathology. He did not have any emesis in the department and was able to tolerate water without difficulty. Lab work was unremarkable.Electrolyte or liver abnormalities. No leukocytosis. No biliary obstruction. CT did show dilatationof the biliary tract ducts, however he does not have any pain, jaundice, or obstructive labs. Less l ikely choledocholithiasis at this time. The ductal dilatation is possibly chronic based on prior ultrasounds. Bedside ultrasound reviewed by attending MD does not show any evidence of cholecystitis. There is a gallstone in the gallbladder. He was referred to general surgery for this in the event that he develops symptoms. He was prescribed Zofran for nausea. Discharged home in good condition and encouraged to return to the ED for any worsening or changing symptoms. Aesthetically acute appendicitis, diverticulitis, bowel obstruction, mesenteric ischemia, ruptured aortic aneurysm, pancreatitis, or bowel perforation. Patient did request PSA testing. He is a very hard lab draw and does report unexplained weight loss. Also reports urinary frequency. This was obtained and I was able to contact his primary care office who will follow up with the results. ED Course: Medications iohexoL (Omnipaque) (350 mg/mL) injection solution 0-200 mL (96 mLs Intravenous Given 08/05/20 1447) lactated Ringers 1,000 mL IV bolus ( Intravenous Stopped 08/05/20 1345) Assessment: 1. Non-intractable vomiting with nausea, unspecified vomiting type 2. Calculus of gallbladder without cholecystitis without obstruction Discharge Plan: Discharge Medication List as of 08/05/2020 4:17 PM START taking these medications Details ondansetron ODT (Zofran ODT) 4 mg Tablet, Rapid Dissolve Take 1-2 tablets by mouth every 8 hours asneeded for Nausea., Disp-20 tablet,R-1, Normal F/u with PMD and general surgery Disposition: d/c home Harvey Roblero PA 08/05/20 2908 documented in this encounter Miscellaneous Notes * ED Triage - Saadia Ayon RN - 08/05/2020 11:17 AM EST Pt. Presents with vomiting since yesterday and also 20 lb weight loss since May. Skin warm pink dry, denies pain. documented in this encounter Plan of Treatment Scheduled Referrals Name Type Priority Associated Diagnoses Orde r Schedule Referral to General Surgery Outpatient Referral Routine Non-intractable vomiting with nausea, unspecified vomiting type Ordered: 08/05/2020 documented as of this encounter Procedures Procedure Name Priority Date/Time Associated Diagnosis Comments CT ABDOMEN AND PELVIS W CONTRAST STAT 08/05/2020 2:46 PM EST URINALYSIS MICROSCOPIC EXAM STAT 08/05/2020 2:31 PM EST URINALYSIS WITH REFLEX CULTURE STAT 08/05/2020 2:31 PM EST BLOOD GAS VENOUS ([facility]) Routine 08/05/2020 12:35 PM EST HC PROSTATE SPECIFIC AG SCREENING STAT 08/05/2020 12:30 PM EST HEMOGRAM STAT 08/05/2020 12:30 PM EST DIFFERENTIAL, AUTOMATED STAT 08/05/2020 12:30 PM EST GOLD TUBE HOLD STAT 08/05/2020 12:30 PM EST BLUE TUBE HOLD STAT 08/05/2020 12:30 PM EST HC CBC,PLT & AUTO DIFF STAT 08/05/2020 12:30 PM EST HC LIPASE STAT 08/05/2020 12:30 PM EST HC HEMOGLOBIN A1C STAT 08/05/2020 12: 30 PM EST HEPATIC FUNCTION PANEL STAT 08/05/2020 12:30 PM EST BASIC METABOLIC PANEL STAT 08/05/2020 12:30 PM EST US GALLBLADDER (SYNC) Routine 08/05/2020 12:02 PM EST documented in this encounter Results * CT Abdomen & Pelvis w Contrast (08/05/2020 2:46 PM EST) Anatomical Region Laterality Modality Abdomen, Pelvis Computed Tomogra phy Impressions 08/05/2020 3:23 PM EST 1. ??Mild intrahepatic and extrahepatic biliary ductal dilatation is of uncertain clinical significance in the setting of normal LFTs. Clinical correlation with location and nature of pain is needed to assess for possible intermittent or recurrent obstruction. The 2018 ultrasound images were reviewed and there may have been mild intrahepatic ductal dilatation at that time. 2. ??Review of the 2018 ultrasound indicates that the patient has a history of hepatitis C virus. Please note, the current CT technique cannot exclude hypervascular masses such as hepatocellular carcinoma. 3. ??No acute inflammatory or obstructing process of bowel/mesentery. I have personally reviewed the image(s) and the resident's interpretation and agree with the findings, Kelsey Lynn MD at 08/05/2020 3:23 PM Thank you for letting us participate in the care of this patient. For questions regarding this report, please contact the number below. ? Electronically signed by: Kelsey Lynn MD, [facility] ([phone]), at 08/05/2020 3:23 PM Narrative 08/05/2020 3:23 PM EST EXAMINATION: CT ABDOMEN AND PELVIS W CONTRAST CLINICAL HISTORY: Abdominal pain, acute, nonlocalized - Include more detail below; Nausea/vomiting 30lbs weight loss, nausea/vomiting TECHNIQUE: Helical CT of the abdomen and pelvis was performed following the intravenous administration of contrast. Administered 96.0 ml of OMNIPAQUE 350.00 mg/ml. COMPARISON: Abdominal ultrasound 01/18/2018. FINDINGS: Lower chest: Normal. Liver: Normal size and attenuation. Focal fatty infiltration along the falciform ligament. Adjacent less than 5 mm hypoattenuating lesion (series 3 image 27) is too small to characterize, however, statistically likely to represent a cyst or hemangioma. No other liver lesions. Hepatic and portal veins are widely patent. Bile ducts: Mild to moderate intrahepatic central biliary ductal dilation. The common bile duct is mildly dilated, measuring 8 mm. Gallbladder: No calcified gallstones. Normal caliber wall. Pancreas: Normal attenuation without ductal dilatation. Spleen: Normal. Adrenals: Normal. Kidneys: Several subcentimeter hypoattenuating lesions in the right kidney are too small to characterize, however, likely represent cysts. No hydronephrosis or urolithiasis. No calculi. Urinary Bladder: Mild wall thickening is likely due to underdistention. Vasculature: No aneurysm. Lymph Nodes: No enlarged lymph nodes. Bowel: Nondilated small and large bowel. No bowel wall thickening. The appendix is normal. Peritoneum and mesentery: No ascites, free air, or loculated fluid collection. No mesenteric inflammation. Abdominal wall: Normal. Reproductive organs: A small left varicocele is noted. Otherwise unremarkable. Osseous structures: No suspicious lesions. Partially calcified disc protrusions at L4-L5 and L5-S1. Procedure Note Kelsey Lynn MD - 08/05/2020 EXAMINATION: CT ABDOMEN AND PELVIS W CONTRAST CLINICAL HISTORY: Abdominal pain, acute, nonlocalized - Include moredetail below; Nausea/vomiting 30lbs weight loss, nausea/vomiting TECHNIQUE: Helical CT of the abdomen and pelvis was performed followingthe intravenous administration of contrast. Administered 96.0 ml of [id number] mg/ml. COMPARISON: Abdominal ultrasound 01/18/2018. FINDINGS: Lower chest: Normal. Liver: Normal size and attenuation. Focal fatty infiltration along thefalciform ligament. Adjacent less than 5 mm hypoattenuating lesion (series 3 image27) is too small to characterize, however, statistically likely to represent acyst or hemangioma. No other liver lesions. Hepatic and portal veins are widelypatent. Bile ducts: Mild to moderate intrahepatic central biliary ductal dilation.The common bile duct is mildly dilated, measuring 8 mm. Gallbladder: No calcified gallstones. Normal caliber wall. Pancreas: Normal attenuation without ductal dilatation. Spleen: Normal. Adrenals: Normal. Kidneys: Several subcentimeter hypoattenuating lesions in the right kidneyare too small to characterize, however, likely represent cysts. Nohydronephrosis or urolithiasis. No calculi. Urinary Bladder: Mild wall thickening is likely due to underdistention. Vasculature: No aneurysm. Lymph Nodes: No enlarged lymph nodes. Bowel: Nondilated small and large bowel. No bowel wall thickening. Theappendix is normal. Peritoneum and mesentery: No ascites, free air, or loculated fluidcollection. No mesenteric inflammation. Abdominal wall: Normal. Reproductive organs: A small left varicocele is noted. Otherwiseunremarkable. Osseous structures: No suspicious lesions. Partially calcified discprotrusions at L4-L5 and L5-S1. IMPRESSION 1. Mild intrahepatic and extrahepatic biliary ductal dilatation is ofuncertain clinical significance in the setting of normal LFTs. Clinical correlationwith location and nature of pain is needed to assess for possible intermittentor recurrent obstruction. The 2018 ultrasound images were reviewed and theremay have been mild intrahepatic ductal dilatation at that time. 2. Review of the 2018 ultrasound indicates that the patient has a historyof hepatitis C virus. Please note, the current CT technique cannot exclude hypervascular masses such as hepatocellular carcinoma. 3. No acute inflammatory or obstructing process of bowel/mesentery. I have personally reviewed the image(s) and the resident's interpretationand agree with the findings, Kelsey Lynn MD at 08/05/2020 3:23 PM Thank you for letting us participate in the care of this patient. Forquestions regarding this report, please contact the number below. Chloe Sullivan DO [facility] CT ORDE NESSKARINA * (ABNORMAL) Urinalysis Microscopic Exam (08/05/2020 2:31 PM EST) RBC, Urine 2 0 - 3 /HPF [facility] WBC, Urine 9(H) 0 - 3 /HPF [facility] Squamous Epithelial Cells Raw Data, Urine 2 <=4 /HPF [facility] Hyaline Casts, Urine 9(H) 0 - 2 /LPF [facility] Urine specimen (specimen) 08/05/2020 2:31 PM EST 08/05/2020 2:41 PM EST Narrative Resulting Agency Comment Spec In Lab Harvey BELL URINE ORDERABLES [facility] [place] [address] * (ABNORMAL) Urinalysis with reflex Culture (08/05/2020 2:31 PM EST) Glucose, Urine Dipstick Negative Negative mg/dL [facility] Protein, Urine Dipstick 30(A) Negative mg/dL [facility] Bilirubin, Urine Dipstick Negative Negative mg/dL [facility] Comment: Clinical correlation required for positive Urine Bilirubin results as false positive may occur with some drugs and drug related products. If a false positive is suspected a serum total bilirubin should be considered if clinically indicated. Urobilinogen, Urine Dipstick Normal Normal mg/dL [facility] pH, Urn (dipstick) 6.5 5.0 - 8.0 [facility] Blood, Urine Dipstick Negative Negative mg/dL [facility] Ketone, Urine Dipstick 15(A) Negative mg/dL [facility] Nitrite, Urine Dipstick Negative Negative [facility] Leukocytes, Urine Dipstick Small(A) Negative [facility] Appearance, Urine Dipstick Clear Clear [facility] Specific [place] Urine Automated 1.018 1.006 - 1.030 [facility] Color, Urine Dipstick Yellow Yellow [facility] Reflex to Culture No [facility] Urine specimen (specimen) 08/05/2020 2:31 PM EST 08/05/2020 2:41 PM EST Narrative Resulting Agency Comment Spec In Lab Chloe Mancilla Laurie DO URINE ORDER [facility] [place] [address] * (ABNORMAL) Blood Gas Venous (08/05/2020 12:35 PM EST) pH, Venous 7.32 7.32 - 7.42 [facility] PCO2, Venous 46 41 - 51 mmHg [facility] PO2, Venous 27 25 - 40 mmHg [facility] Bicarbonate, Venous 23.2 mmol/L [facility] Base Excess, Venous -2.8 mmol/L [facility] Hgb Blood Gas 16.6(H) 13.7 - 16.5 gm/dL [facility] Oxyhemoglobin, Venous 50.8 % [facility] Carboxyhemoglob in, Venous 4.4 % [facility] [facility] Comment: Nonsmokers: 0.5-1.5% COHB Smokers: Variable, but usually less than 10% Toxic: 20-30% COHB Lethal: Greater than 60% COHB Methemoglobin, Venous 0.3 <=1.5 % [facility] Na Whole Blood 137 135 - 145 mmol/L [facility] K Whole Blood 3.6 3.5 - 5.0 mmol/L [facility] Comment: Please note: Patients with WBC >100,000 may have falsely elevated Potassium levels. Contact the Clinical Chemistry Laboratory if there are any questions. ICa Whole Blood 1.29 1.15 - 1.33 mmol/L [facility] Comment: Note: ??Total bilirubin higher than 20 mg/dL may lead to falsely low ionized calcium. CL Whole Blood 100 98 - 107 mmol/L [facility] Gluc Whole Bld 87 65 - 199 mg/dL [facility] Comment:Diabetes: >=200 mg/d L plus symptoms Lactate WB 1.5 0.5 - 2.2 mmol/L [facility] Blood Gas Source Venous [facility] Blood specimen (specimen) Venous Draw / Unknown 08/05/2020 12:35 PM EST 08/05/2020 12:53 PM EST Narrative Resulting Agency Comment Spec In Lab Harvey BELL CHEMISTRY ORDERABLES Performing Organization Address [facility] Co de Phone Number [facility] [place] [place] [address] * Gold Tube HOLD (08/05/2020 12:30 PM EST) Gold Hold Sample in lab. [facility] Blood specimen (specimen) Venous Draw / Unknown 08/05/2020 12:30 PM EST 08/05/2020 12:55 PM EST Harvey BELL CHEMISTRY ORDERABLES Performing Organization Address [facility] Co de Phone Number [facility] [place] [address] * Blue Tube HOLD (08/05/2020 12:30 PM EST) Blue Hold Sample in lab. [facility] Blood specimen (specimen) Venous Draw / Unknown 08/05/2020 12:30 PM EST 08/05/2020 12:55 PM EST Harvey BELL HEMATOLOGY ORDERABLE S Performing Organization Address [facility] Co de Phone Number [facility] [place] [address] * (ABNORMAL) Differential, Automated (08/05/2020 12:30 PM EST) Neutrophil % 77.7 % [facility] Neutrophil Absolute 11.19(H) 1.70 - 6.10 x10(3)/mc L [facility] Lymph % 15.8 % [facility] Lymphocytes Abs 2.3 0.9 - 3.2 x10(3)/mc L [facility] Monocyte % 3.7 % [facility] Monocyte Abs 0.5 0.3 - 0.9 x10(3)/[facility] Eos % 1.7 % [facility] Eosinophils Abs 0.2 0.0 - 0.4 x10(3)/[facility] Basophil % 0.8 % [facility] Baso Absolute 0.1 0.0 - 0.1 x10(3)/[facility] Immature Gran % 0.30 % [facility] Comment: Immature granulocytes(IG's)percentage and absolute count will include metamyelocytes, myelocytes, and promyelocytes. Blood smears from CBCs yielding IG's will be scanned manually for concordance. If this scan disagrees with the automated IG or if promyelocytes are noted, a manual differential will be performed. Immature Gran Absolute 0.05(H) 0.00 - 0.04 x10(3)/[facility] Blood specimen (specimen) 08/05/2020 12:30 PM EST 08/05/2020 12:54 PM EST Narrative Resulting Agency Comment Spec In Lab Harvey BELL HEMATOLOGY ORDERABLE S Performing Organization Address City/State/[facility] Co de Phone Number [facility] [place] [address] * (ABNORMAL) Hemogram (08/05/2020 12:30 PM EST) White Blood Cell 14.4(H) 4.0 - 9.5 x10(3)/[facility] Red Blood Cell 5.37 4.58 - 5.54 x10(6)/[facility] Hemoglobin 15.8 13.7 - 16.5 gm/dL [facility] Hematocrit 49.0(H) 40.5 - 48.5 % [facility] Mean Cell Volume 91.2 82.9 - 93.1 fL [facility] Mean Cell Hemoglobin 29.4 27.5 - 32.1 pg [facility] Mean Cell Hemoglobin Concentration 32.2 32.0 - 35.7 gm/dL [facility] Platelet 378(H) 145 - 357 x10(3)/mc L [facility] RDW Standard Deviation 44.0 36.0 - 45.0 fL [facility] RDW coefficient of variation 13.1 11.4 - 13.8 % [facility] Mean Platelet Volume 10.3 7.6 - 12.9 fL [facility] NRBC% auto 0.0 % [facility] NRBC Absolute 0.000 0.000 - 0.000 x10(3)/mc L [facility] Blood specimen (specimen) 08/05/2020 12:30 PM EST 08/05/2020 12:54 PM EST Narrative Resulting Agency Comment Spec In Lab Harvey BELL HEMATOLOGY ORDERABLE S Performing Organization Address City/[facility]/ZIP Co de Phone Number [facility] [place] [address] * PSA Screen (08/05/2020 12:30 PM EST) [facility] PSA Screen 0.88 0.00 - 4.00 ng/mL [facility] Comment: PLEASE NOTE: The above reference interval is intended for healthy males with an intact prostate. Values within this reference interval may indicate recurrence in men who have undergone radical prostatectomy. Blood specimen (specimen) 08/05/2020 12:30 PM EST 08/05/2020 12:54 PM EST Narrative Resulting Agency Comment Spec In Lab Chloe Sullivan DO CHEMISTRY O RDERABLES Performing Organization Address City/[facility]/ZIP Co de Phone Number [facility] [place] [address] * Hemoglobin A1c (08/05/2020 12:30 PM EST) Hemoglobin A1c 4.9 4.3 - 5.6 % [facility] Comment: Reference Range: 4.3 - 5.6% 5.7 - 6.4% - Increased Risk of Developing Diabetes Mellitus >= 6.5% - Consistent with diagnosis of Diabetes Mellitus In the absence of hyperglycemia (i.e. plasma glucose > 200 mg/dL) or classic symptoms of hyperglycemia a repeat measurement of HbA1c should be performed on a separate sample to confirm the diagnosis. Diagnosis and Classification of Diabetes Mellitus, Diabetes Care 2013; 36: Suppl. 1, S67-74 Estimated Average Glucose 93 mg/dL [facility] Comment: eAG equivalents for HbA1c percentages: HbA1c(%) ?eAG(mg/dL) 6.0 ?126 6.5 ?140 7.0 ?154 7.5 ?169 8.0 ?183 8.5 ?197 9.0 ?212 9.5 ?226 10.0 ? 240 Limitations: The eAG calculation has not been validated on women, individuals below 18 years old and above 70 years old, and individuals with hemoglobinopathies. Additional resources are available on the ADA website. Darrius LANDIN, Troy J, Jayme R, et al. ??Translating the A1C assay into estimated average glucose values. ??Diabetes Care 2008:31(8):4709-9728. Blood specimen (specimen) 08/05/2020 12:30 PM EST 08/05/2020 12:54 PM EST Narrative Resulting Agency Comment Spec In Lab Chloe Sullivan DO CHEMISTRY O RDERABLES [facility] [place] [address] * Lipase (08/05/2020 12:30 PM EST) Pathologist [facility] Lipase 12 0 - 60 unit/L [facility] Blood specimen (specimen) 08/05/2020 12:30 PM EST 08/05/2020 12:54 PM EST Narrative Resulting Agency Comment Spec In Lab Chloe Sullivan DO CHEMISTRY O RDERABLES Performing Organization Address [facility] Co de Phone Number [facility] [place] [address] * (ABNORMAL) Hepatic Function Panel (08/05/2020 12:30 PM EST) Pathologist [facility] Protein, Total 8.9(H) 6.1 - 8.0 gm/dL [facility] Albumin 5.4(H) 3.2 - 5.2 gm/dL [facility] Aspartate Aminotransferase 18 0 - 39 unit/L [facility] Alanine Aminotransferase 12 0 - 55 unit/L [facility] Alkaline Phosphatase 75 40 - 130 unit/L [facility] Bilirubin, Total 0.8 0.2 - 1.3 mg/dL [facility] Bilirubin, Direct 0.2 0.0 - 0.3 mg/dL [facility] Blood specimen (specimen) 08/05/2020 12:30 PM EST 08/05/2020 12:54 PM EST Narrative Resulting Agency Comment Spec In Lab Chloe Sullivan DO CHEMISTRY O RDERABLES Performing Organization Address City/[facility]/ZIP Co de Phone Number [facility] [place] [address] * (ABNORMAL) Basic Metabolic Panel (non-fasting) (08/05/2020 12:30 PM EST) [facility] Glucose 89 65 - 199 mg/dL [facility] Comment:Diabetes: >=200 mg/d L plus symptoms Blood Urea Nitrogen 11 10 - 20 mg/dL [facility] Creatinine 1.26 0.80 - 1.50 mg/dL [facility] Sodium 139 135 - 145 mmol/L [facility] Potassium 3.5 3.5 - 5.0 mmol/L [facility] Comment: Please note: ??Patients with WBC >100,000 may have falsely elevated Potassium levels. ??For accurate Potassium quantification in these patients send serum separator tube (gold top) for subsequent determinations. ??Contact the Clinical Chemistry Laboratory if there are any questions. Chloride 99 98 - 107 mmol/L [facility] Carbon Dioxide 26 22 - 31 mmol/L [facility] Anion Gap 14 5 - 15 mmol/L [facility] Calcium 10.8(H) 8.5 - 10.5 mg/dL [facility] Est Glomerular Filtration Rate 70 >=60 mL/min/1. 73 m?? [facility] Comment: This patient? s estimated glomerular filtration rate (eGFR) is between 70 mL/min/1.73 m2 (patients with less muscle mass per kg body weight) and 81 mL/min/1.73 m2 (patients with more muscle mass per kg body weight) as determined by the CKD-EPI equation. Assessment of eGFR is not appropriate when creatinine concentrations are rapidly changing. For clinical decisions where creatinine clearance will affect therapy, a 24-hour urine creatinine clearance may be advised. Assignment of CKD stage 1 ? 5 for patients with an eGFR near the transition point between stages may be based on clinical assessment of muscle mass and symptoms in addition to eGFR. Blood specimen (specimen) 08/05/2020 12:30 PM EST 08/05/2020 12:54 PM EST Narrative Resulting Agency Comment Spec In Lab Chloe Sullivan DO CHEMISTRY O RDERABLES [facility] [place] [address] * US Gallbladder (Sync) (08/05/2020 12:02 PM EST) Anatomical Region Laterality Modality Other 08/05/2020 12:0 2 PM EST Narrative 08/05/2020 5:30 PM EST Exam Information: A focused ultrasound exam of the gallbladder and right upper quadrant was performed to evaluate for gallstones, cholecystitis, and cholestasis.: Indications: : Other Views Obtained: Gallbladder:: Long axis,Short axis -: Common bile duct Findings: Gallstones(s):: Single,In body Biliary Sludge:: Present Gallbladder wall thickness:: <3mm Gallbladder wall thickness: 1.5 mm Common Bile Duct Largest Diameter: 4.4 mm Pericholecystic fluid:: Absent Sonographic Bess? s sign:: Absent Polyp:: Absent Adenomyomatosis:: Other: Interpretation: : Cholelithiasis without sonographic evidence of cholecystitis Other:: Confirmatory study: -: CT Results:: intrahepatic and biliary ductal dilation CPT Code 68847:Limited Abdomen- GB/SBO/SSTI/FF or Paracentesis (74577) Electronically Signed by the following ??Attending: ?on [id number] PDF Procedure Note Konstantin Valencia MD - 08/28/2020 Exam Information: A focused ultrasound exam of the gallbladder and right upper quadrant wasperformed to evaluate for gallstones, cholecystitis, and cholestasis.: Indications: : Other Views Obtained: Gallbladder:: Long axis,Short axis -: Common bile duct Findings: Gallstones(s):: Single,In body Biliary Sludge:: Present Gallbladder wall thickness:: <3mm Gallbladder wall thickness: 1.5 mm Common Bile Duct Largest Diameter: 4.4 mm Pericholecystic fluid:: Absent Sonographic Bess? s sign:: Absent Polyp:: Absent Adenomyomatosis:: Other: Interpretation: : Cholelithiasis without sonographic evidence of cholecystitis Other:: Confirmatory study: -: CT Results:: intrahepatic and biliary ductal dilation CPT Code 82728:Limited Abdomen- GB/SBO/SSTI/FF or Paracentesis (23799) Electronically Signed by the following Attending: on [id number] PDF Konstantin Valencia MD [facility] documented in this encounter Visit Diagnoses Diagnosis Non-intractable vomiting with nausea, unspecified vomiting type Calculus of gallbladder without cholecystitis without obstruction Calculus of gallbladder without mention of cholecystitis or obstruction documented in this encounter Administered Medications Inactive Administered Medications - up to 3 most recent administrations Medication Order MAR Action Action Date Dose Rate Site iohexoL (Omnipaque) (350 mg/mL) injection solution 0-200 mL 0-200 mL, Intravenous, ONCE PRN, 1 dose, Starting on Tue08/05/20 at 1446, Until Tue08/05/20 at 1447, Per Protocol, Warning Vesicant/Irritant Medication , Radiology Contrast, Routine Given 08/05/2020 2:47 PM EST 96 mLs lactated Ringers 1,000 mL IV bolus at 2,000 mL/hr, Intravenous, ONCE, 1 dose, On Tue08/05/20 at 1234 New Bag 08/05/2020 12:51 PM EST 2000 mL/hr documented in this encounter Active and Recently Administered Medications Times are shown in EST. Scheduled Medication Order 08/03/2020 08/04/2020 08/05/2020 lactated Ringers 1,000 mL IV bolus (COMPLETED) at 2,000 mL/hr, Intravenous, ONCE, 1 dose, On Tue08/05/20 at 1234 1251 (New Bag - Prov ider: Kd Cowan RN)1345 (Stopped - Provider: Kd Cowan RN) PRN Medication Order 08/03/2020 08/04/2020 08/05/2020 iohexoL (Omnipaque) (350 mg/mL) injection solution 0-200 mL (COMPLETED) 0-200 mL, Intravenous, ONCE PRN, 1 dose, Starting on Tue08/05/20 at 1446, Until Tue08/05/20 at 1447, Per Protocol, Warning Vesicant/Irritant Medication , Radiology Contrast, Routine 1447 (Given - Provid er: Caridad Prescott) documented in this encounter Care Teams Social Work Lecturer Relationship Specialty Start Date End Date Laura Ho MD [address] [place] [address] PCP - General Family Medicine 06/28/16 documented as of this encounter
--- OUTSIDE RECORDS SUMMARY | 2024-06-21 15:31 | XMS_ITS | Encounter Summary ---
Author Organization [facility] Address [facility] [address] [place] [address] Care Team Providers Care Bilingual Social Worker Name Role Phone Laura Ho MD Primary Care Provider [phone] Encounter Details Date Type Department Care Team (Late st Contact Info) Description 08/22/2019 12:05 AM EST Ancillary Procedure Radiology Library at [facility] ([place] [address] Gorge Edgar MD [facility] [place] [address] Social History Tobacco Use Types Packs/Day Years [...] LIBRARY STORAGE ONLY DX LOWER EXTREMITY Routine 08/22/2019 12:05 AM EST documented in this encounter Results * Film Library- Storage Only DX Lower Extremity (08/22/2019 12:05 AM EST) Narrative [facility] - 08/30/2019 10:13 PM EST This exam is auto-finalizing. It's purpose is for storage only. Gorge Edgar MD IMG FILM LIBRARY ORD ERABLES [place], [place] documented in this encounter Visit Diagnoses Not on filedocumented in this encounter Care Teams Bilingual Social Worker Relationship Specialty Start Date End Date Laura Ho MD [address] [place] [address] PCP - General Family Medicine 06/28/16 documented as of this encounter
--- OUTSIDE RECORDS SUMMARY | 2024-06-21 15:31 | XMS_ITS | Encounter Summary ---
Author Organization [facility] Address [facility] [place] [address] Care Team Providers Care Bank Manager Name Role Phone Laura Ho MD Primary Care Provider [phone] Encounter Details Date Type Department Care Team (Late st Contact Info) Description 08/06/2020 Orders [place] [id number] Antonette Tejada RN Nausea and vomiting, intractability of vomiting not specified, unspecified vomiting type; Upper abdominal pain Social History Tobacco Use Types Packs/Day Years [...] on file documented as of this encounter Results * US Abdomen Limited [...] report, please contact the number below. ? Lorenzo Francis, Staff Physician Electronically Signed Final Report ?? 09/03/2020 12:05 pm Narrative 09/03/2020 12:06 PM EST Abdominal ? (Signed Final 09/03/2020 12:05 pm) PATIENT INFO: ID #: ? [id number] ?: ??[birth year] (40 yrs)(M) Name: ? HARVEY RAMIREZ ?Visit Date: 09/03/2020 11:33 am PERFORMED BY: Performed By: ? Tahira Soliz RDMS Attending: ?Penny MURILLO, Lorenzo Morales Resident: ? Jesus Cowan MD Referred By: ?JORGE LUIS RIOS Location: ? [place] SERVICE(S) PROVIDED: UABDLIM - Abdominal Limited Survey Single ? 77294 Organ or Quadrant - [id number] INDICATIONS: assess gallbladder COMPARISON: Prior US: 01/18/18 [...] 09/03/2020 12:05 pm) PATIENT INFO: ID #: [id number] : [birth year] (40 yrs)(M) Name: HARVEY RAMIREZ Visit Date: 09/03/2020 11:33 am PERFORMED BY: Performed By: Tahira Soliz RDMS Attending: Lorenzo Francis MD Resident: Jesus Cowan MD Referred By: JORGE LUIS RIOS Location: [place] SERVICE(S) PROVIDED: UABDLIM - Abdominal Limited Survey Single 79236 Organ or Quadrant - [id number] INDICATIONS: assess gallbladder COMPARISON: Prior US: 01/18/18 [...] below. Electronically signed by: Lorenzo Francis MD, [facility] ([phone]), at 09/03/2020 11:57 AM Lorenzo Francis, Staff Physician Electronically Signed Final Report 09/03/2020 12:05 pm Jorge Luis Rios MD IMG GEN ORDERABL ES documented in this encounter Visit Diagnoses Diagnosis Nausea and vomiting, intractability of vomiting not specified, unspecified vomiting type Upper abdominal pain Abdominal pain, other specified site Nausea and vomiting, intractability of vomiting not specified, unspecified vomiting type Upper abdominal pain Abdominal pain, other specified site documented in this encounter Care Teams Bank Manager Relationship Specialty Start Date End Date Laura Ho MD [address] [place] [address] PCP - General Family Medicine 06/28/16 documented as of this encounter
--- OUTSIDE RECORDS SUMMARY | 2024-06-21 15:31 | XMS_ITS | Encounter Summary ---
Author Organization [facility] Address [facility] [address] [place] [address] Care Team Providers Care Lead Section Supervisor Name Role Phone Laura Ho MD Primary Care Provider [phone] Encounter Details Date Type Department Care Team (Late st Contact Info) Description 09/05/2019 Orders Only [place] [address] Gorge Edgar MD [facility] [address] [place] [address] Abnormal findings on diagnostic imaging of limbs [...] documented as of this encounter Results * Request for 2nd [...] the Left knee was performed. FINDINGS: The umbja-mn-xicu includes only 8 cm length of distal [...] the Left knee was performed. FINDINGS: The shavm-gy-gcfs includes only 8 cm length of distal [...] radiological and other examinations of body structure Abnormal findings on diagnostic imaging of limbs Other nonspecific (abnormal) findings on radiological and other examinations of body structure documented in this encounter Care Teams Lead Section Supervisor Relationship Specialty Start Date End Date Laura Ho MD [address] [place] [address] PCP - General Family Medicine 06/28/16 documented as of this encounter
--- OUTSIDE RECORDS SUMMARY | 2024-06-21 15:31 | XMS_ITS | Encounter Summary ---
Author Organization [facility] Address [facility] [place] [address] Care Team Providers Care Manager Adult Name Role Phone Laura Ho MD Primary Care Provider [phone] Reason for Visit * Reason Comments Abscess right neck Head Injury 4 days ago * Auth/Cert Specialty Diagnoses / Procedures Referred By Govind t Referred To Contact Diagnoses Neck abscess Procedures ER IPI Admit Referral ID Status Reason Start Date Expiration Date Visits Re quested Visits Authorized [id number] 1 1 Encounter Details Date Type Department Care Team (Late st Contact Info) Description 01/10/2021 11:30 PM EDT - 01/11/2021 1:19 AM EDT [place] [phone] Rusty Gong MD [facility] [place] [address] I & D DEEP ABSCESS OR HEMATOMA, NECK (WRVU 3.98) Social History Tobacco Use Types Packs/Day Years [...] Sign Reading Time Taken Comments Blood Pressure 130/73 01/11/2021 12:58 AM EDT Pulse 73 01/11/2021 12:58 AM EDT Temperature 37.6 ??C (99.7 ??F) 01/11/2021 1 2:58 AM EDT Respiratory Rate 10 01/11/2021 12:5 8 AM EDT Oxygen Saturation 94% 01/11/2021 12: 58 AM EDT Inhaled Oxygen Concentration - - [...] who have questions please contact the health health care manager that requested your imaging first. Discharge Info [...] -You can reach the ENT clinic at [phone] for appointment questions. -The ENT triage nurse is available at [phone] -For urgent issues during evenings (5 PM - 7 AM) and weekends the ENT resident invoice classification clerk can be reached through the main hospital chucking machine set up operator tool at [phone] Follow Up: You will need to follow [...] and Relapse Prevention Resources Residential Treatment: [facility] [place] [address] [place], [place] [id number] [address] [address] Intensive Outpatient Programs: [facility] [address] [place], [place] [facility] [address] [place] [address] Individual Therapy: [facility] [address] [facility], [place] [facility] [address] [place] [address] You may also search www.AIT Bioscience.Outdoor Creations or dial 211 for therapists in your area. Medication Assisted Treatment: [facility] [address] [place] [address] [place] [address] [facility] [address] [place] [address] [facility] [place] [address] Peer Support Groups Alcoholics Anonymous (AA) [place]: , www.[employer]Cake [employer].aa.net Narcotics Anonymous (NA) [place]: , www.eHi Car Rentalana.org Online AA and NA Meetings AA, NA, Refuge Recovery, SMART Recovery www.[facility] AA Video Meetings www.aa-intergroup.org/directory_audio-video.php AA Text Chat Meetings www.aa.intergroup.org/directory.php NA Video Meetings www.virtual-na.org/meetings NA Text Chat Meetings Www.LED Light SensealoneLure Media Groupub.org SMART Recovery Meetings via Zoom 5:00-6:00pm, free and open to all To join Zoom meetin. Visit www.Vodat International.Outdoor Creations 2. Click on calendar on top of toolbar 3. Find the correct meeting date and time 4. Click the zoom link and enter password provided 211: Your Connection to Recovery HUBS Dial 2-1-1 from anywhere in [place] 31/01 to be connected with a mental health professional who can refer you to your local HUB for evaluation and referral to appropriate substance use treatment. Safe Station Present to any one of the fire stations in [place] or [facility], now designated as ???Safe Stations?? , a place where you can walk in 31/01, and get connected with substance use treatment services. [facility] Safe Stations Central Fire Station: [address] [facility] --- Station 2: [address] [facility] [address] Station 3: [address] --- Station 4: [address] Station 5: [address] --- Station 6: [address] Station 7: [address]--- Station 8: [address] [facility] [employer] [facility] [place] Station 9: [address]--- Station 10: [facility] Safe Stations Station 1: [address] --- Station 2: [address] --- Station 3: [address] Station 4: [address] --- Station 5: [address] -- Station 6: [address] Station 7: [address] Additional Resources Www.vtaddictionservices.org www.healthvermont.gov/alcohol-drugs www.vogsiht516.org/ (Search for Substance Use) www.Destinator Technologies/ Www.rethinkingdrinking.niaaa.nih.gov/ www.samhsa.gov/wwqvpcnxtj-ragntgkl-myughljri/ysyrvgwhxshf-xbnwnon-skhx/treatment -practitioner-firer marine Opiate Overdose Prevention: www.prescribetoprevent.org National Suicide Prevention Hotline: (668) 548-SRXL (0965) NEW SYRINGE EXCHANGE PROTOCOL as of September Mobile operations by appointment. For more information about receiving supplies and naloxone or to schedule an appointment: [place] clients call and leave a message for Elli (ext. 105) or Johnson He (ext. 104). [place] clients call to speak with Johnson Zapata [...] is being approved. Online Stress Reduction Resources www.iCreate.Outdoor Creations/videos-features/videos/eirapdjda-dtpbomgwm-6-7-8-breath/ www.WaviiindLyatissord.org/2013/gkzdcdzwc-cdxgftbtf-abhjxpl-moment/ www.Fidelis SeniorCare.Outdoor Creations/ www.mindful.org/ www.freeAnimocaness.org/ __ Primary Care Doctor: Laura Ho MD [phone] Signed: Simran Pineda MD 01/13/2021 documented in this encounter Discharge Instructions * Discharge Instructions* Gonzales Wolfe, CROSS COUNTRY AND TRACK AND FIELD COACH - 01/13/2021 8:03 AM EDT Substance Use Treatment and Relapse Prevention Resources Residential Treatment: [address] [address] Intensive Outpatient Programs: [address] [facility] [address] [place] [address] Individual Therapy: [address] [facility] [address] [place] [address] You may also search www.A[employer]ience.Outdoor Creations or Play2Shop.com for therapists in your area. Medication Assisted Treatment: [facility] [address] [place] [address] [facility] [address] [place] [address] [facility] [address] Peer Support Groups Alcoholics Anonymous (AA) [place]: , www.nhaa.net Narcotics Anonymous (NA) [place]: , www.gmana.org Online AA and NA Meetings AA, NA, Refuge Recovery, SMART Recovery www.[facility] AA Video Meetings www.aa-intergroup.org/directory_audio-video.php AA Text Chat Meetings www.aa.intergroup.org/directory.php NA Video Meetings www.virtual-na.org/meetings NA Text Chat Meetings Www.neveraloneclub.org SMART Recovery Meetings via Zoom 5:00-6:00pm, free and open to all To join Zoom meetin. Visit www.AppSame 2. Click on calendar on top of toolbar 3. Find the correct meeting date and time 4. Click the zoom link and enter password provided 211: Your Connection to Recovery HUBS Dial 2-1-1 from anywhere in [place] 31/01 to be connected with a mental health professional who can refer you to your local HUB for evaluation and referral to appropriate substance use treatment. Safe Station Present to any one of the fire stations in [place] or [facility], now designated as ???Safe Stations?? , a place where you can walk in 31/01, and get connected with substance use treatment services. [facility] Safe Stations Central Fire Station: [address] --- Station 2: [address] [facility] [address] Station 3: [address] [facility] [address] --- Station 4: [address] Station 5: [address] --- Station 6: [address] Station 7: [address]--- Station 8: [address] [facility] Station 9: [address] [facility] [facility] [address]--- Station 10: [address] [facility] Safe Stations Station 1: [address] --- Station 2: [address] --- Station 3: [address] Station 4: [address] --- Station 5: [address] -- Station 6: [address] Station 7: [address] Additional Resources Www.vtaddictionservices.org www.healthvermont.gov/alcohol-drugs www.otncnbn535.org/ (Search for Substance Use) www.AIT Bioscience.Outdoor Creations/ Www.rethinkingdrinking.niaaa.nih.gov/ www.samhsa.gov/ujptwbcmel-oscnefdd-ypntdreft/prskqozhjdzl-eugdbkz-rydv/treatment -practitioner-firer marine Opiate Overdose Prevention: www.prescribetoprevent.org National Suicide Prevention Hotline: (895) 769-TALK (1034) NEW SYRINGE EXCHANGE PROTOCOL as of September Mobile operations by appointment. For more information about receiving supplies and naloxone or to schedule an appointment: [place] clients call and leave a message for Elli (ext. 105) or Johnson He (ext. 104). [place] clients call to speak with Johnson Zapata [...] is being approved. Online Stress Reduction Resources www.Planeta.ru/videos-features/videos/uxzzddsyp-rbrihnljx-3-7-8-breath/ www.GridPoint.Atara Biotherapeutics/2013/bzfqsoenz-koalhjjjd-ipksouo-moment/ www.York Mailing/ www.mindful.org/ www.freemindfulness.org/ * Patient Instructions* Simran Pineda [...] -You can reach the ENT clinic at [phone] for appointment questions. -The ENT triage nurse is available at [phone] -For urgent issues during evenings (5 PM - 7 AM) and weekends the ENT resident invoice classification clerk can be reached through the main hospital chucking machine set up operator tool at [phone] Follow Up: You will need to follow [...] PM EDT D/C planning: Team: ENT Pager: [phone] Pt to d/c home via private vehicle. Pt/team feel no d/c needs identified at this time, printed Dresser drain care instructions given to pt. Pt is aware of d/c plan. Sagrario Baker MSN, RN CM environmental compliance inspector Office of Care Management Pager #[phone] * April Herrera RN - 01/13/2021 1:04 [...] and need dressing materials for his neck. DRAWER FITTER met with patient and life partner Luzmaria at bedside. Patient is looking forward to going home today. DRAWER FITTER provided patient with Last Dose Letter just [...] of assistance and support during this hospitalization. DRAWER FITTER updated bedside RN. SOLEDAD Gayle Inpatient Neurosciences Momd Teacher Phone: [phone] Pager: [phone] * Rusty Gong MD - 01/12/2021 12:16 [...] 3.98) performed by Rusty Gong MD at [facility] MAIN OR ??? PRO LAP, CHOLECYSTECTOMY/GRAPH N/A 09/15/2020 LAPAROSCOPIC CHOLECYSTECTOMY WITH CHOLANGIOGRAM (WRVU 11.47) performed by Jorge Luis Rios MD [facility] MAIN OR Medications & Allergies No current [...] nightly. Pcn [penicillins] Social History Lives in [facility] [address] Social History Socioeconomic History ??? Marital status: [...] PGY4 01/12/21 12:16 PM ENT Team Pager: [phone] * Violeta Singer RN - 01/12/2021 3:12 [...] independent with ADL's Surveillance [continuous indirect monitoring]: [place]ano, Purposeful Rounding, Nurse Knowledge Exchange at Bedside [...] 3.98) performed by Rusty Gong MD at [facility] MAIN OR ??? PRO LAP, CHOLECYSTECTOMY/GRAPH N/A 09/15/2020 LAPAROSCOPIC CHOLECYSTECTOMY WITH CHOLANGIOGRAM (WRVU 11.47) performed by Jorge Luis Rios MD [facility] MAIN OR Medications & Allergies No current [...] nightly. Pcn [penicillins] Social History Lives in [place] [address] Social History Socioeconomic History ??? Marital status: [...] Dispo: Floor __ Kyle Still MD, PGY4 01/11/21 8:43 AM ENT Team Pager: [phone] ENT ATTENDING STAFF NOTE: I personally reviewed the above note including the documented history and agree with the outlined plan. Rusty Gong MD * Violeta Singer RN - 01/11/2021 1:54 AM EDT Pt arrived to floor from PACU after I& D to right side of neck. Pt alert and oriented x4. Pt reports pain 10. Pt denies any chest pain, shortness of [...] Luis Rios MD [facility] MAIN OR Medications & Allergies No current [...] nightly. Pcn [penicillins] Social History Lives in [facility] [address] Social History Socioeconomic History ??? Marital status: [...] PGY4 01/10/21 10:12 PM ENT Team Pager: [phone] ENT CONSULTATION- ATTENDING STAFF NOTE: The patient [...] internal jugular septic thrombophlebitis. Rusty Gong MD, [facility] Attending Staff documented in this encounter ED Notes * Colleen Swan RN - 01/10/2021 10:40 PM EDT Pt to OR with anesthsia * Mihaela Chang LPN - 01/10/2021 8:48 PM EDT Pt up and ambulated to bathroom to give a urine sample. updated pt and . * Berta Meek - 01/10/2021 8:39 PM EDT ABDOUL ELASTIC ASSEMBLER ED: Length of Quality Internship services provided to ED patient:: 30 min How did the patient enter the program?: Other Did the patient consent to Quality Internship services?: No RC introduced self and role. Pt declined services at this time. Berta Anderson [facility] ED Recovery Support Pager # [phone] * Colleen Swan RN - 01/10/2021 7:50 [...] who have questions please contact the health health care manager that requested your imaging first. Assessment and [...] 10:45 PM Jairo Pickett MD Resident 01/10/21 7803 Associated attestation - Bee Malone MD - [...] Mr. 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 Motivated to cut-back on his alcohol use with the ongoing clinical support of outpatient counseling at [facility]. Interventions delivered: Consulted with care team Plan: 1. Patient plans to remain abstinent from IVDU with the ongoing clinical support of Suboxone assisted therapy at [facility] in [place]. 2. Patient plans to cut-back on his alcohol use with the ongoing clinical support of outpatient counseling at [facility]. Outstanding Discharge Needs: Patient reports that he [...] IV ABX, pain well controlled with tylenol. Dresser putting out scant drainage, changed once during [...] Tolerating regular diet. Voiding in bathroom. 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 Order to get up and ambulate independently. Continuing with vancomycin and cefepime. Serosanguineous and yellow drainage from Dresser, gauze changed x2 this shift. Pain to [...] GOAL OUTCOME EVALUATION: * Initial Assessments - Kadie Casanova MSW - 01/12/2021 10:18 AM EDT Office of Care Management Initial Assessment SOLEDAD Schrader reviewed record and discussed patient with Care Team. Source of Information: Team, bedside nurse, medical record, and Patient, Significant Other This publicity writer introduced self/reviewed role; services accepted. Reason [...] Luzmaria Vegas as primary DPOAHC and his [id number] Juan [place]. Copies made and provided. A [...] Accessibility Concerns:None. Current DME: none Home Address: [address] [place] [id number] Social & Family Supports: Patient reports he [...] Insurance: N/A Prescription Coverage: Yes Preferred Pharmacy: [id number] - [place], [place] - [address] [place] [address] [facility] [id number] [facility] Status: Patient is a : unable to assess Primary Care Provider: Laura Ho MD [phone] Patient/Caregiver Goals of Treatment: To go home [...] know she was close. Patient also confirmed. DRAWER FITTER spoke with bedside RN and Charge. Will see about moving patient to a private (which would help per pt and partner Luzmaria), but she cannot spend the night. DRAWER FITTER left bedside RN information on Rest Easy [...] discharged on oral ABX or IVABX. Plan: DRAWER FITTER assisted patient with appointment of HC Agent form. DRAWER FITTER to provide patient with Last Doseletter. DRAWER FITTER provided bedside RN with information about Rest [...] of care planning. SOLEDAD Gayle Inpatient Neurosciences Momd Teacher Phone: [phone] Pager: [phone] * Plan of Care - Bea Frost RN - 01/11/2021 6:48 PM EDT OUTCOME EVALUATION NOTE: OUTCOME SUMMARY: Pt is A+Ox4, VSS on RA, nydia to upper 40's at times. Dresser to right neck with gauze and sleeve covering, steristrips intact to neck. Tolerating regular diet. Voiding in bathroom. Pain to neck has been fairly controlled with scheduled meds. Pt requested additional dose of toradol as well as higher dose of nicotine patch and addition of nicotine gum-request sent to ENT invoice classification clerk via Securechat. Pthas independent to ambulate order. [...] EVALUATION: * Consult Note - Harvey Gonzalez [facility] - 01/11/2021 4:02 AM EDT Clinical Pharmacist Note - VancFD Harvey Espinosa [id number] Harvey Espinosa is a 40 y.o. [...] questions you may have. Alternately, during off-hours (9p-7a) you may call [phone] to contact a pharmacist. Harvey Gonzalez RPH * Op Note - Rusty Gong MD - 01/11/2021 12:58 AM EDT [facility] Operative Note Patient Name: Harvey Espinosa : [id number] MR#: [id number] Case Date: 01/10/2021 - 01/11/2021 Surgeon: Surgeon(s) [...] Bundle used? N/A Kyle Still MD PGY-4 [facility] Otolaryngology Pager: [phone] Attestation: Case Date: 01/10/2021 - 01/11/2021 I [...] Or Hematoma Soft Tissue Neck Or Thorax (01541) 01/10/2021 10:42 PM EDT Neck abscess RAPID [...] Metabolic Panel (non-fasting) (01/13/2021 10:38 AM EDT) Glucose 80 65 - 199 mg/dL [facility] Comment:Diabetes: >=200 mg/d L plus symptoms Blood Urea Nitrogen 9(L) 10 - 20 mg/dL [facility] Creatinine 1.05 0.80 - 1.50 mg/dL [facility] Sodium 137 135 - 145 mmol/L [facility] Potassium 4.1 3.5 - 5.0 mmol/L [facility] Comment: Please note: ??Patients with WBC >100,000 may have falsely elevated Potassium levels. ??For accurate Potassium quantification in these patients send serum separator tube (gold top) for subsequent determinations. ??Contact the Clinical Chemistry Laboratory if there are any questions. Chloride 102 98 - 107 mmol/L [facility] Carbon Dioxide 29 22 - 31 mmol/L [facility] Anion Gap 6 5 - 15 mmol/L [facility] Calcium 10.2 8.5 - 10.5 mg/dL [facility] Est Glomerular Filtration Rate 87 >=60 mL/min/1. 73 m?? [facility] Comment: This patient? s [...] Lab Rusty Gong MD CHEMISTRY ORDERABLE S [facility] [place] [address] * (ABNORMAL) Differential, Automated (01/13/2021 3:45 AM EDT) Neutrophil % 46.7 % [facility] Neutrophil Absolute 3.07 1.70 - 6.10 x10(3)/ L [facility] Lymph % 34.2 % [facility] Lymphocytes Abs 2.2 0.9 - 3.2 x10(3)/[facility] Monocyte % 7.5 % [facility] Monocyte Abs 0.5 0.3 - 0.9 x10(3)/[facility] Eos % 9.9 % [facility] Eosinophils Abs 0.6(H) 0.0 - 0.4 x10(3)/[facility] Basophil % 1.4 % [facility] Baso Absolute 0.1 0.0 - 0.1 x10(3)/[facility] Immature Gran % 0.30 % [facility] Comment: Immature granulocytes(IG's)percentage and absolute count will include metamyelocytes, myelocytes, and promyelocytes. Blood smears from CBCs yielding IG's will be scanned manually for concordance. If this scan disagrees with the automated IG or if promyelocytes are noted, a manual differential will be performed. Immature Gran Absolute 0.02 0.00 - 0.04 x10(3)/[facility] Blood 01/13/2021 3:45 AM EDT 01/13/2021 4:22 AM EDT Narrative Resulting Agency Comment Spec In Lab Kyle Still MD HEMATOLOGY ORDERAB LES [facility] [place] [address] * (ABNORMAL) Hemogram (01/13/2021 3:45 AM EDT) White Blood Cell 6.6 4.0 - 9.5 x10(3)/[facility] Red Blood Cell 4.46(L) 4.58 - 5.54 x10(6)/[facility] Hemoglobin 12.9(L) 13.7 - 16.5 gm/dL [facility] Hematocrit 40.7 40.5 - 48.5 % [facility] Mean Cell Volume 91.3 82.9 - 93.1 fL [facility] Mean Cell Hemoglobin 28.9 27.5 - 32.1 pg [facility] Mean Cell Hemoglobin Concentration 31.7(L) 32.0 - 35.7 gm/dL [facility] Platelet 409(H) 145 - 357 x10(3)/mc L [facility] RDW Standard Deviation 40.9 36.0 - 45.0 fL [facility] RDW coefficient of variation 12.2 11.4 - 13.8 % [facility] Mean Platelet Volume 10.1 7.6 - 12.9 fL [facility] NRBC% auto 0.0 % [facility] NRBC Absolute 0.000 0.000 - 0.000 x10(3)/mc L [facility] Blood 01/13/2021 3:45 AM EDT 01/13/2021 4:22 AM EDT Narrative Resulting Agency Comment Spec In Lab Kyle Still MD HEMATOLOGY ORDERAB LES Performing Organization Address City/State/[facility] Co de Phone Number [facility] [place] [address] * Vancomycin, trough (01/12/2021 12:08 PM EDT) Pathologist [facility] Vancomycin, Trough 8.5 mg/L [facility] Comment: Therapeutic range for complicated [...] Lab Rusty Gong MD CHEMISTRY ORDERABLE S [facility] [place] [address] * (ABNORMAL) Differential, Automated (01/12/2021 6:32 AM EDT) Neutrophil % 44.6 % [facility] Neutrophil Absolute 2.97 1.70 - 6.10 x10(3)/mc L [facility] Lymph % 34.5 % [facility] Lymphocytes Abs 2.3 0.9 - 3.2 x10(3)/ L [facility] Monocyte % 9.6 % [facility] Monocyte Abs 0.6 0.3 - 0.9 x10(3)/ L [facility] Eos % 9.6 % [facility] Eosinophils Abs 0.6(H) 0.0 - 0.4 x10(3)/[facility] Basophil % 1.3 % [facility] Baso Absolute 0.1 0.0 - 0.1 x10(3)/mc L [facility] Immature Gran % 0.40 % [facility] Comment: Immature granulocytes(IG's)percentage and absolute count will include metamyelocytes, myelocytes, and promyelocytes. Blood smears from CBCs yielding IG's will be scanned manually for concordance. If this scan disagrees with the automated IG or if promyelocytes are noted, a manual differential will be performed. Immature Gran Absolute 0.03 0.00 - 0.04 x10(3)/mc L [facility] Blood 01/12/2021 6:32 AM EDT 01/12/2021 6:45 AM EDT Narrative Resulting Agency Comment Spec In Lab Kyle Still MD HEMATOLOGY ORDERAB LES Performing Organization Address City/[facility]/ZIP Co de Phone Number [facility] [place] [address] * (ABNORMAL) Hemogram (01/12/2021 6:32 AM EDT) White Blood Cell 6.7 4.0 - 9.5 x10(3)/mc L [facility] Red Blood Cell 4.54(L) 4.58 - 5.54 x10(6)/mc L [facility] Hemoglobin 13.2(L) 13.7 - 16.5 gm/dL [facility] Hematocrit 42.6 40.5 - 48.5 % [facility] Mean Cell Volume 93.8(H) 82.9 - 93.1 fL [facility] Mean Cell Hemoglobin 29.1 27.5 - 32.1 pg [facility] Mean Cell Hemoglobin Concentration 31.0(L) 32.0 - 35.7 gm/dL [facility] Platelet 413(H) 145 - 357 x10(3)/mc L [facility] RDW Standard Deviation 44.1 36.0 - 45.0 [facility] RDW coefficient of variation 12.7 11.4 - 13.8 % [facility] Mean Platelet Volume 10.3 7.6 - 12.9 [facility] NRBC% auto 0.0 % [facility] NRBC Absolute 0.000 0.000 - 0.000 x10(3)/mc L [facility] Blood 01/12/2021 6:32 AM EDT 01/12/2021 6:45 AM EDT Narrative Resulting Agency Comment Spec In Lab Kyle Still MD HEMATOLOGY ORDERAB LES Performing Organization Address City/[facility]/ZIP Co de Phone Number [facility] [place] [address] * Anaerobic Culture (01/10/2021 11:30 PM EDT) Anaerobic Culture No anaerobic organisms isolated [facility] Abscess NECK STRUCTURE / Unknown 01/10/2021 11:30 PM EDT 01/11/2021 12:28 AM EDT Comment:GRAM STAIN PLEASE Narrative Resulting Agency Comment Spec In Lab Rusty Gong MD MICROBIOLOGY - GENE RAL ORDERABLES Performing Organization Address [facility] Co de Phone Number [facility] [place] [address] * (ABNORMAL) Abscess/Wound Aspirate Culture (01/10/2021 11:30 PM EDT) Abscess/Wound Aspirate Culture Moderate Streptococcus pneumoniae(A) [facility] Gram Stain Many Neutrophils seen Many Gram Positive Cocci seen (A) [facility] Organism Streptococcus pneumoniae(A) [facility] Organism Gram Positive Cocci(A) [facility] Abscess NECK STRUCTURE / Unknown 01/10/2021 [...] SCAN METHOD Sensitive Streptococcus pneumoniae Penicillin (Nonmeningitis) WI CROSCAN METHOD Sensitive Comment: Penicillin susceptibility predicts susceptibility to Ampicillin, Ampicillin-Sulbactam, Amoxicillin, Amoxicillin-Clavulanate, Cefepime, Cefpodoxime, Cefprozil, Cefuroxime, Ceftriaxone and Meropenem. Streptococcus pneumoniae Tetracycline MICROSCAN METHOD Resistant Streptococcus pneumoniae Trimethoprim/Sulfa MICROSCAN METHOD Sensitive Streptococcus pneumoniae Vancomycin MICROSCAN METHOD Sensitive Rusty Gong MD MICROBIOLOGY - GENE RAL ORDERABLES Performing Organization Address City/[facility]/ZIP Co de Phone Number [facility] [place] [address] * Fungus culture Abscess (01/10/2021 11:30 PM EDT) Fungus Culture No Fungus isolated [facility] Abscess 01/10/2021 11:3 0 PM EDT 01/11/2021 12:28 AM EDT Comment:RIGHT NECK ABSCESS Narrative Resulting Agency Comment Spec In Lab Rusty Gong MD MICROBIOLOGY - GENE RAL ORDERABLES [facility] [place] [address] * (ABNORMAL) Rapid Drug Screen w/o Confirmation, Urine (01/10/2021 8:47 PM EDT) Barbiturates Screen, Urine None Detected None Detected [facility] Comment: The barbiturate screen detects barbiturates [...] Benzodiazepines Screen, Urine None Detected None Detected [facility] Comment: The benzodiazepines screen detects benzodiazepines [...] Cocaine Screen, Urine None Detected None Detected [facility] Comment: The cocaine metabolites screen detects benzoylecgonine (Cocaine Metabolite) at concentrations >150 ng/mL. A ? Presumptive Positive? result indicates that the screening result was positive but has not yet been confirmed by a highly-specific method. As with any screen, occasional false positive results from cross-reacting substances may occur. Not for Medico-Legal Purposes. Methadone Metabolites Screen, Urine None Detected None Detected [facility] Comment: The methadone metabolite screen detects EDDP (major methadone metabolite) at concentrations >100 ng/mL. A ? Presumptive Positive? result indicates that the screening result was positive but has not yet been confirmed by a highly-specific method. As with any screen, occasional false positive results from cross-reacting substances may occur. Not for Medico-Legal Purposes. Opiate Screen, Urine None Detected None Detected [facility] Comment: The opiates screen detects opiates [...] Cannabinoid Screen, Urine Presumptive Pos(A) None Detected [facility] Comment: The marijuana metabolites screen detects the THC metabolite (58-gny-6-carboxy-delta 9-THC) at concentrations >20 ng/mL. A ? Presumptive Positive? result indicates that the screening result was positive but has not yet been confirmed by a highly-specific method. As with any screen, occasional false positive results from cross-reacting substances may occur. Not for Medico-Legal Purposes. Oxycodone Screen, Urine None Detected None Detected [facility] Comment: The oxycodone screen detects oxycodone and oxymorphone at concentrations >100 ng/mL. A ? Presumptive Positive? result indicates that the screening result was positive but has not yet been confirmed by a highly-specific method. As with any screen, occasional false positive results from cross-reacting substances may occur. Not for Medico-Legal Purposes. Buprenorphine Screen, Urine Presumptive Pos(A) None Detected [facility] Comment: The buprenorphine screen detects buprenorphine at concentrations >5 ng/mL. A ? Presumptive Positive? result indicates that the screening result was positive but has not yet been confirmed by a highly-specific method. As with any screen, occasional false positive results from cross-reacting substances may occur. Not for Medico-Legal Purposes. Fentanyl Screen, Urine None Detected None Detected [facility] Comment: The fentanyl screen detects fentanyl at concentrations >2 ng/mL. A ? Presumptive Positive? result indicates that the screening result was positive but has not yet been confirmed by a highly-specific method. As with any screen, occasional false positive results from cross-reacting substances may occur. Not for Medico-Legal Purposes. Tricyclics Screen, Urine None Detected None Detected [facility] Comment: The tricyclics screen detects tricyclic [...] Ethanol Screen, Urine None Detected None Detected [facility] Comment:This urine ethanol a ssay detects ethanol at concentrations >/= 100 mg/L. Amphetamines Screen, Urine None Detected None Detected [facility] Comment: The amphetamine screen detects d-amphetamine and d-methamphetamine at concentrations >300 ng/mL. A ? Presumptive Positive? result indicates that the screening result was positive but has not yet been confirmed by a highly-specific method. As with any screen, occasional false positive results from cross-reacting substances may occur. Not for Medico-Legal Purposes. Adulterants Screen, Urine None Detected None Detected [facility] Comment: No adulteration or dilution of this urine sample was detected. All urine samples submitted for urine drugs of abuse analysis are tested for creatinine concentration, pH, and for the presence of oxidants, nitrites, and chromate. Urine 01/10/2021 8:47 PM EDT 01/10/2021 8:57 PM EDT Narrative Resulting Agency Comment Spec In Lab Jairo Pickett MD CHEMISTRY ORDERABLE S [facility] [place] [address] * Rapid Drug Screen, Urine (DAR Request) (01/10/2021 8:47 PM EDT) DAR Conf Requested No [facility] DAR Requested See Comment [facility] Comment:Refer to Rapid Drug Screen w/o Confirmation, Urine for results. Urine 01/10/2021 8:47 PM EDT 01/10/2021 8:57 PM EDT Narrative Resulting Agency Comment Spec In Lab Bee Malone MD URINE ORDERABLES [facility] [place] [address] * CT Neck Soft Tissue w Contrast [...] who have questions please contact the health health care manager that requested your imaging first. ? Narrative [...] patients who have questions please contactthe health health care manager that requested your imaging first. Bee Malone MD IMG CT ORDERABLES * Blood culture (01/10/2021 4:25 PM EDT) Blood Culture No growth at 5 days. [facility] Blood PERIPHERAL BLOOD / Unknown 01/10/2021 4:25 PM EDT 01/10/2021 5:03 PM EDT Comment:#2 RIGHT Narrative Resulting Agency Comment Spec In Lab Bee Malone MD MICROBIOLOGY - BLOOD ORDERABLES Performing Organization Address [facility] Co de Phone Number [facility] [place] [address] * Blood culture (01/10/2021 3:38 PM EDT) Blood Culture No growth at 5 days. [facility] Blood STRUCTURE OF RIGHT FOREARM / Unknown 01/10/2021 3:38 PM EDT 01/10/2021 3:58 PM EDT Comment:#1 Narrative Resulting Agency Comment Spec In Lab Bee Malone MD MICROBIOLOGY - BLOOD ORDERABLES Performing Organization Address [facility] Co de Phone Number [facility] [place] [place] [address] * Scan, Peripheral Blood (01/10/2021 3:36 PM EDT) Plat estimate Increased [facility] RBC Morphology Normal [facility] Blood 01/10/2021 3:36 PM EDT 01/10/2021 3:47 PM EDT Narrative Resulting Agency Comment Spec In Lab Jairo Pickett MD HEMATOLOGY ORDERABL ES Performing Organization Address [facility] Co de Phone Number [facility] [place] [address] * Gold Tube HOLD (01/10/2021 3:36 PM EDT) Gold Hold Sample in lab. [facility] Blood Venous Draw / Unknown 01/10/2021 3:36 PM EDT 01/10/2021 3:38 PM EDT Jairo Pickett MD CHEMISTRY ORDERABLE S Performing Organization Address City/[facility]/ZIP Co de Phone Number [facility] [place] [address] * (ABNORMAL) Differential, Automated (01/10/2021 3:36 PM EDT) Neutrophil % 72.8 % [facility] Neutrophil Absolute 11.25(H) 1.70 - 6.10 x10(3)/mc L [facility] Lymph % 13.7 % [facility] Lymphocytes Abs 2.1 0.9 - 3.2 x10(3)/ L [facility] Monocyte % 10.8 % [facility] Monocyte Abs 1.7(H) 0.3 - 0.9 x10(3)/ L [facility] Eos % 1.6 % [facility] Eosinophils Abs 0.2 0.0 - 0.4 x10(3)/[facility] Basophil % 0.7 % [facility] Baso Absolute 0.1 0.0 - 0.1 x10(3)/ L [facility] Immature Gran % 0.40 % [facility] Comment: Immature granulocytes(IG's)percentage and absolute count will include metamyelocytes, myelocytes, and promyelocytes. Blood smears from CBCs yielding IG's will be scanned manually for concordance. If this scan disagrees with the automated IG or if promyelocytes are noted, a manual differential will be performed. Immature Gran Absolute 0.06(H) 0.00 - 0.04 x10(3)/ L [facility] Blood 01/10/2021 3:36 PM EDT 01/10/2021 3:38 PM EDT Narrative Resulting Agency Comment Spec In Lab Jairo Pickett MD HEMATOLOGY ORDERABL ES Performing Organization Address [facility]/ZIP Co de Phone Number [facility] [place] [address] * (ABNORMAL) Hemogram (01/10/2021 3:36 PM EDT) Pathologist [facility] White Blood Cell 15.4(H) 4.0 - 9.5 x10(3)/ L [facility] Red Blood Cell 4.48(L) 4.58 - 5.54 x10(6)/ L [facility] Hemoglobin 13.2(L) 13.7 - 16.5 gm/dL [facility] Hematocrit 41.2 40.5 - 48.5 % [facility] Mean Cell Volume 92.0 82.9 - 93.1 fL [facility] Mean Cell Hemoglobin 29.5 27.5 - 32.1 pg [facility] Mean Cell Hemoglobin Concentration 32.0 32.0 - 35.7 gm/dL [facility] Platelet 387(H) 145 - 357 x10(3)/[facility] LAB[facility] RDW Standard Deviation 42.7 36.0 - 45.0 [facility] RDW coefficient of variation 12.6 11.4 - 13.8 % [facility] Mean Platelet Volume 10.4 7.6 - 12.9 [facility] LAB[facility]ORY NRBC% auto 0.0 % [facility] NRBC Absolute 0.000 0.000 - 0.000 x10(3)/[facility] Blood 01/10/2021 3:36 PM EDT 01/10/2021 3:38 PM EDT Narrative Resulting Agency Comment Spec In Lab Jairo Pickett MD HEMATOLOGY ORDERABL ES [facility] [place] [address] * (ABNORMAL) Hepatic Function Panel (01/10/2021 3:36 PM EDT) Pathologist [facility] Protein, Total 8.5(H) 6.1 - 8.0 gm/dL [facility] Albumin 4.3 3.2 - 5.2 gm/dL [facility] Aspartate Aminotransferase 13 0 - 39 unit/L [facility] Alanine Aminotransferase 12 0 - 55 unit/L [facility] Alkaline Phosphatase 77 40 - 130 unit/L [facility] Bilirubin, Total 0.4 0.2 - 1.3 mg/dL [facility] Bilirubin, Direct 0.1 0.0 - 0.3 mg/dL [facility] Blood 01/10/2021 3:36 PM EDT 01/10/2021 3:38 PM EDT Narrative Resulting Agency Comment Spec In Lab Bee Malone MD CHEMISTRY ORDERABLES [facility] [place] [address] * (ABNORMAL) Basic Metabolic Panel (non-fasting) (01/10/2021 3:36 PM EDT) Glucose 95 65 - 199 mg/dL [facility] Comment:Diabetes: >=200 mg/d L plus symptoms Blood Urea Nitrogen 8(L) 10 - 20 mg/dL [facility] Creatinine 0.93 0.80 - 1.50 mg/dL [facility] Sodium 138 135 - 145 mmol/L [facility] Potassium 4.0 3.5 - 5.0 mmol/L [facility] Comment: Please note: ??Patients with WBC >100,000 may have falsely elevated Potassium levels. ??For accurate Potassium quantification in these patients send serum separator tube (gold top) for subsequent determinations. ??Contact the Clinical Chemistry Laboratory if there are any questions. Chloride 100 98 - 107 mmol/L [facility] Carbon Dioxide 24 22 - 31 mmol/L [facility] Anion Gap 14 5 - 15 mmol/L [facility] Calcium 10.1 8.5 - 10.5 mg/dL [facility] Est Glomerular Filtration Rate 101 >=60 mL/min/1. 73 m?? [facility] Comment: This patient? s [...] In Lab Bee Malone MD CHEMISTRY ORDERABLES [facility] [place] [phone] documented in this encounter Visit Diagnoses Not on filedocumented in this encounter Admitting Diagnoses Diagnosis Neck [...] Given 01/12/2021 8:37 AM EDT 5 mg cloNIDine (CATAPRES) 0.1 mg/24 hr patch 1 [...] Given 01/11/2021 8:20 PM EDT 40 mg lamoTRIgine (LaMICtal) tablet 150 mg 150 mg, Oral, NIGHTLY, First dose on 01/11/21 at 0300, Until Discontinued, Routine Given 01/12/2021 9:01 PM EDT 150 mg Given 01/11/2021 8:20 PM EDT 150 mg Given 01/11/2021 3:15 AM EDT 150 mg lidocaine-EPINEPHrine (pf) (1% - 1:200,000) injection ONCE PRN, Starting on 01/10/21 at 2349, Until 01/13/21 at 1556, Intra-Operative (Intra-Procedure), Routine Given 01/10/2021 11:49 PM EDT 5 mLs 19- Surgical Site lithium capsule 1,050 mg 1,050 mg, Oral, [...] PM EDT 10 mg nicotine (NICODERM CQ) 21 mg/24 hr patch [...] 8:37 AM EDT 5 mLs vancomycin (Vancocin) 1.25 gram in sodium chloride [...] 9:16 PM EDT 1,250 mg 200 mL/hr documented in this encounter Active and Recently Administered Medications Times are shown in EDT. Scheduled Medication Order 01/11/2021 01/12/2021 01/13/2021 acetaminophen (Tylenol) tablet 1,000 mg 1,000 mg, Oral, EVERY 8 HOURS, First dose on Tue01/11/21 at 0130, Until Discontinued, Should be used concomitantly if other analgesics are ordered. Maximum dose of acetaminophen is 4000 mg from all sources in 24 hours., Routine 0112 (Given - Provider: Warren Welch RN)1004 (Given - Provider: Bea Frost, COCO)1656 (Given - Provider: Bea Frost RN) 0114 (Given - Provider: Violeta Singer RN)0848 (Given - Provider: Bea Frost RN)1717 (Given - Provider: Bea Frost, COCO) 0030 (Given - Provider: Jason Vega, RN)0843 (Given - Provider: April Herrera RN) buprenorphine-naloxone (Suboxone) 8-2 mg disintegrating tablet 1 [...] Bea Frost RN)0907 (Stopped - Provider: Bea Frost RN)1717 (New Bag - Provider: Bea Frost RN)1747 (Stopped - Provider: Bea Frost RN) 0024 (New Bag - Provider: Jason Vega RN)0054 (Stopped - Provider: Jason Vega RN) cloNIDine (CATAPRES) 0.1 mg/24 hr patch [...] on 01/11/21 at 0300, Until Discontinued, Routine 314 (Given - Provider: Violeta Singer RN)2019 (Given - Provider: Violeta Singer RN) 2100 (Given - Provider: Jason Vega, COCO) lithium capsule 1,050 mg 1,050 mg, Oral, NIGHTLY, First dose (after last modification) on 01/11/21 at 0300, Until Discontinued, Take with Food, Routine 228 (Given - Provider: Violeta Singer RN)2019 (Given - Provider: Violeta Singer RN) 2101 (Given - Provider: Jason Vega, RN) methylphenidate (Ritalin) tablet 10 mg 10 mg, Oral, 2 TIMES DAILY BEFORE MEALS, First dose on Tue01/12/21 at 1630, Until Discontinued, Routine 1539 (Given - Provider: Bea Frost RN) 0634 (Given - Provider: Jason Vega RN) nicotine (NICODERM CQ) 14 mg/24 hr [...] on 01/11/21 at 0300, Until Discontinued, Routine 0300 (Not Given - Provider: Violeta Singer RN - Reason: Patient/family refused - Comment: takes the patch)2017 (Given - Provider: Violeta Singer RN) 2058 (Given - Provider: Jason Vega RN) QUEtiapine (SEROquel) tablet 100 mg 100 mg, Oral, NIGHTLY, First dose (after last modification) on 01/11/21 at 0300, Until Discontinued, Routine 0315 (Given - Provider: Violeta Singer RN)2018 (Given [...] refused)2058 (Given - Provider: Jason Vega RN) 0900 (Not Given - Provider: April Herrera RN - Reason: Patient/family refused) sodium chloride 0.9 % (flush) flush 5 mL 5 mL, Intravenous, 2 TIMES DAILY, First dose on 01/11/21 at 0245, Until Discontinued, Recovery (Recovery-Hospital Unit), Routine 0245 (Not Given - Provider: Violeta Singer RN - Reason: See comment - Comment: task completed upon arrival to unit)1011 (Given - Provider: Bea Frost RN)2024 (Given - Provider: Violeta Singer RN) 0837 (Given - Provider: Bea Frost RN)2116 (Given - Provider: Jason Veag RN) 0844 (Given - Provider: April Herrera [...] Indication for (Active or Suspected): Skin/Skin Structure 111 (New Bag - Provider: Bea Frost RN)121 (Stopped - Provider: Bea Frost RN)202 (New Bag - Provider: Violeta Singer RN)212 (Stopped - Provider: Violeta Singer RN) 0413 (New Bag - Provider: Violeta Singer RN)0513 (Stopped - Provider: Violeta Singer RN)1302 (New Bag - Provider: Bea Frost, COCO)1402 (Stopped - Provider: Bea Frost RN) vancomycin [...] 0357 (New Bag - Provider: Violeta Singer, COCO)0557 (Stopped - Provider: Violeta Singer, COCO) PRN Medication Order 01/11/2021 01/12/2021 01/13/2021 bisacodyL (Dulcolax) suppository 10 mg 10 mg, Rectal, DAILY PRN, Starting on 01/11/21 at 0145, Until 01/13/21 at 1556, Constipation, Administer if no bowel [...] Recovery, Routine 0028 (Given - Provider: Warren Welch RN)0055 (Given - Provider: Warren Welch RN) [...] draw. documented in this encounter Care Teams Manager Adult Relationship Specialty Start Date End Date Laura Ho MD [address] [place] [id number] PCP - General Family Medicine 06/28/16 documented as of this encounter
--- OUTSIDE RECORDS SUMMARY | 2024-06-21 15:31 | XMS_ITS | Encounter Summary ---
Author Organization [facility] Address [facility] [address] [place] [address] Care Team Providers Care Building And Construction Manager Name Role Phone Laura Ho MD Primary Care Provider [phone] Encounter Details Date Type Department Care Team (Late st Contact Info) Description 04/09/2020 Telephone Dermatology at [facility] [address] [place] [address] Jaron Cross MD [facility] [address] [address] Social History Tobacco Use Types Packs/Day Years [...] encounter Miscellaneous Notes * Telephone Encounter - Amairani Denis - 04/09/2020 8:58 AM EDT Left msg to reschedule appt., documented in this encounter Plan of Treatment Not on file documented as of this encounter Visit Diagnoses Not on filedocumented in this encounter Care Teams Building And Construction Manager Relationship Specialty Start Date End Date Laura Ho MD [address] [place] [address] PCP - General Family Medicine 06/28/16 documented as of this encounter
--- OUTSIDE RECORDS SUMMARY | 2024-06-21 15:32 | XMS_ITS | Encounter Summary ---
Author Organization [facility] [place] [address] Care Team Providers Care Mail Distributor Name Role Phone Laura Ho MD Primary Care Provider [phone] Encounter Details Date Type Department Care Team (Latest Contact Info) Description 12/11/2018 9:45 AM EDT Laboratory Appointment Lab [address] [place] [phone] Screening for lipoid disorders; Encounter for long-term (current) use of other medications; Encounter for therapeutic drug monitoring Social History Tobacco Use Types Packs/Day Years [...] Procedure Name Priority Date/Time Associated Diagnosis Comments HEMOGRAM Routine 12/11/2018 10:30 AM EDT Encounter for long-term (current) use of other medications DIFFERENTIAL, AUTOMATED Routine 12/11/2018 10:30 AM EDT Encounter for long-term (current) use of other medications HEPATITIS C RNA, QUANTITATIVE, PCR Routine 12/11/2018 10:30 AM EDT Encounter for long-term (current) use of other medications CBC (WITH DIFF) Routine 12/11/2018 10:30 AM EDT Encounter for long-term (current) use of other medications LITHIUM LEVEL Routine 12/11/2018 10:30 AM EDT Encounter for long-term (current) use of other medications LIPID PANEL (REFLEX DIRECT LDL) Routine 12/11/2018 10:30 AM EDT Screening for lipoid disorders COMPREHENSIVE METABOLIC PANEL Routine 12/11/2018 10:30 AM EDT Encounter for long-term (current) use of other medications documented in this encounter Results * (ABNORMAL) Differential, Automated (12/11/2018 10:30 AM EDT) Neutrophil % 51.0 % [facility] Neutrophil Absolute 4.75 1.70 - 6.10 x10(3)/ L [facility] Lymph % 27.5 % [facility] Lymphocytes Abs 2.6 0.9 - 3.2 x10(3)/ L [facility] Monocyte % 9.0 % [facility] Monocyte Abs 0.8 0.3 - 0.9 x10(3)/mc L [facility] Eos % 10.5 % [facility] Eosinophils Abs 1.0(H) 0.0 - 0.4 x10(3)/mc L [facility] Basophil % 1.7 % [facility] Baso Absolute 0.2(H) 0.0 - 0.1 x10(3)/mc L [facility] Immature Gran % 0.30 % [facility] Comment: Immature granulocytes(IG's)percentage and absolute count will include metamyelocytes, myelocytes, and promyelocytes. Blood smears from CBCs yielding IG's will be scanned manually for concordance. If this scan disagrees with the automated IG or if promyelocytes are noted, a manual differential will be performed. Immature Gran Absolute 0.03 0.00 - 0.04 x10(3)/mc L [facility] Blood specimen (specimen) 12/11/2018 10:30 AM EDT 12/11/2018 10:36 AM EDT Narrative Resulting Agency Comment Spec In Lab Laura Ho MD HEMATOLOGY ORDERABLE S Performing Organization Address City/[facility]/ZIP Co de Phone Number [facility] [place] [address] * (ABNORMAL) Hemogram (12/11/2018 10:30 AM EDT) White Blood Cell 9.3 4.0 - 9.5 x10(3)/mc L [facility] Red Blood Cell 5.14 4.58 - 5.54 x10(6)/mc L [facility] Hemoglobin 15.4 13.7 - 16.5 gm/dL [facility] Hematocrit 47.5 40.5 - 48.5 % [facility] Mean Cell Volume 92.4 82.9 - 93.1 fL [facility] Mean Cell Hemoglobin 30.0 27.5 - 32.1 pg [facility] Mean Cell Hemoglobin Concentration 32.4 32.0 - 35.7 gm/dL [facility] Platelet 302 145 - 357 x10(3)/mc L [facility] RDW Standard Deviation 45.2(H) 36.0 - 45.0 [facility] RDW coefficient of variation 13.2 11.4 - 13.8 % [facility] Mean Platelet Volume 11.3 7.6 - 12.9 fL [facility] NRBC% auto 0.0 % [facility] NRBC Absolute 0.000 0.000 - 0.000 x10(3)/mc L [facility] Blood specimen (specimen) 12/11/2018 10:30 AM EDT 12/11/2018 10:36 AM EDT Narrative Resulting Agency Comment Spec In Lab Laura Ho MD HEMATOLOGY ORDERABLE S Performing Organization Address City/[facility]/ZIP Co de Phone Number [facility] [place] [address] * Lipid Panel (12/11/2018 10:30 AM EDT) Cholesterol, Total 143 mg/dL [facility] Comment: Lower Risk: <200 mg/dL Average Risk: 200-239 mg/dL Higher Risk: >be=148 mg/dL Triglyceride 127 mg/dL [facility] Comment: Average Risk/Lower Risk: <150 mg/dL Borderline High Risk: 150-199 mg/dL High Risk: 200-499 mg/dL Very High Risk: >ir=251 mg/dL HDL Cholesterol 59 mg/dL [facility] Comment: Males: ?? Higher Risk: <40 mg/dL Females: ?? HIgher Risk: <50 mg/dL LDL Cholesterol 59 mg/dL [facility] Comment: Lowest Risk: <100 mg/dL Lower Risk: 100-129 mg/dL Borderline High Risk: 130-159 mg/dL High Risk: 160-189 mg/dL Very High Risk: >rw=766 mg/dL Cholesterol/HDL Ratio 2.4 ratio [facility] Lipid Interpretation See Note [facility] Comment: Lipid management should be guided by a patient? s ASCVD risk, goals and preferences. ACC/AHA Guidelines recommend high intensity statin if clinical ASCVD or LDL greater than or equal to 190 mg/dL. http://[email or web address]/JXV-TYH-Mdxzyjjuz Adults aged 40-75 with LDL 70-189 mg/dL should have their 10 year ASCVD risk estimated with the ACC/AHA ASCVD risk pointer machine operator http://tools.acc.org/LDFQH-Dddt-Hpylrbioj/ Statin should be discussed if risk greater [...] In Lab Laura Ho MD CHEMISTRY ORDERABLES Performing Organization Address [facility] de Phone Number [facility] [place] [address] * Hepatitis C RNA, quantitative, PCR (12/11/2018 10:30 AM EDT) HCV Viral Load 906,454 IU/mL [facility] HCV Viral Load Result: [id number] IU/mL Indication for Study: Hepatitis C Infection Analysis: The Nunez RealTime HCV assay is an in vitro reverse stain applicator polymerase chain reaction (RT-PCR)for the quantitation of hepatitis C viral (HCV) RNA in human serum or plasma (EDTA) from HCV-infected individuals. Sample: plasma (0.7 mL minimum volume) Method: Nunez RealTime HCV Assay Linear Range: 12 IU/mL - 100,000,000IU/mL Note: The Nunez RealTime HCV Assay has been approved by the U.S. Food and Drug Administration. [facility] Comment: [VERIFIED DATE]12.19.18 Verified By:Sherice Paniagua (Electronic Signature) Blood specimen (specimen) 12/11/2018 10:30 AM EDT 12/18/2018 2:58 PM EDT Narrative Resulting Agency Comment Spec In Lab Laura Ho MD MOLECULAR ORDERABLES Performing Organization Address [facility] de Phone Number [facility] [place] [address] * [place] level (12/11/2018 10:30 AM EDT) [place] 0.85 <=1.20 mmol/L [facility] Comment: Therapeutic level for bipolar depression: 0.60-1.20 mmol/L Action Level: ?? Acute toxicity: ?>4.00 mmol/L ?? Chronic toxicity: ??>1.50 mmol/L Values greater than or equal to the action level necessitate clinical intervention. ??Values less than this level may necessitate intervention based on clinical condition of the patient. Ref: ??Milagros? s Toxicologic Emergencies 6th ed 1998; p. 967 Blood specimen (specimen) 12/11/2018 10:30 AM EDT 12/11/2018 10:36 AM EDT Narrative Resulting Agency Comment Spec In Lab Laura Ho MD CHEMISTRY ORDERABLES [facility] [place] [address] * (ABNORMAL) Comprehensive metabolic panel (non-fasting) (12/11/2018 10:30 AM EDT) Glucose 80 65 - 199 mg/dL [facility] Comment:Diabetes: >=200 mg/d L plus symptoms Blood Urea Nitrogen 9(L) 10 - 20 mg/dL [facility] Creatinine 1.11 0.80 - 1.50 mg/dL [facility] Sodium 137 135 - 145 mmol/L [facility] Potassium 4.1 3.5 - 5.0 mmol/L [facility] Comment: Please note: ??Patients with WBC >100,000 may have falsely elevated Potassium levels. ??For accurate Potassium quantification in these patients send serum separator tube (gold top) for subsequent determinations. ??Contact the Clinical Chemistry Laboratory if there are any questions. Chloride 99 98 - 107 mmol/L [facility] Carbon Dioxide 26 22 - 31 mmol/L [facility] Anion Gap 12 5 - 15 mmol/L [facility] Calcium 10.3 8.5 - 10.5 mg/dL [facility] Protein, Total 8.2(H) 6.1 - 8.0 gm/dL [facility] Albumin 4.8 3.2 - 5.2 gm/dL [facility] Aspartate Aminotransferase 60(H) 0 - 39 unit/L [facility] Alanine Aminotransferase 83(H) 0 - 55 unit/L [facility] Alkaline Phosphatase 93 40 - 120 unit/L [facility] Bilirubin, Total 0.5 0.2 - 1.3 mg/dL [facility] Est Glomerular Filtration Rate 83 >=60 mL/min/1. 73 m?? [facility] Comment: The eGFR was calculated using the CKD-EPI equation. As with all creatinine based estimates of kidney function, eGFR values calculated with the CKD-EPI equation are not accurate in patients with acute kidney failure, extremes of body mass or the acutely ill. [email or web address] eGFR 96 >=60 mL/min/1. 73 m?? [facility] Comment: The eGFR was calculated using the CKD-EPI equation. As with all creatinine based estimates of kidney function, eGFR values calculated with the CKD-EPI equation are not accurate in patients with acute kidney failure, extremes of body mass or the acutely ill. [email or web address] Blood specimen (specimen) 12/11/2018 10:30 AM EDT 12/11/2018 10:36 AM EDT Narrative Resulting Agency Comment Spec In Lab Laura Ho MD CHEMISTRY ORDERABLES [facility] [place] [phone] documented in this encounter Visit Diagnoses Diagnosis Screening for lipoid disorders Encounter for long-term (current) use of other medications Encounter for therapeutic drug monitoring documented in this encounter Care Teams Mail Distributor Relationship Specialty Start Date End Date Laura Ho MD [address] [place] [address] PCP - General Family Medicine 06/28/16 documented as of this encounter
--- OUTSIDE RECORDS SUMMARY | 2024-06-21 15:32 | XMS_ITS | Encounter Summary ---
Author Organization [facility] Address [facility] [place] [address] Care Team Providers Care Aligning Checker Name Role Phone Tito Fisher MD Primary Care Provider Encounter Details Date Type Department Care Team (Latest Contact Info) Description 02/03/2016 Transcribe [place] [id number] Laura Pickering MD [address] [place] [address] Bipolar I disorder, most recent episode (or current) depressed, severe, specified as with psychotic behavior Social History Tobacco Use Types Packs/Day Years Used Date Smoking Tobacco: Every Day Alcohol Use Standard Drinks/Week Comments No 0 (1 standard drink = 0.6 oz pur e alcohol) Sex and Gender Information Value Date Recorded Sex Assigned at Not on file Gender Identity Not on file Sexual Orientation Not on file documented as of this encounter Plan of Treatment Scheduled Orders Name Type Priority Associated Diagnoses Orde r Schedule Lab Use Only, Fax Request Lab Routine Bipolar I disorder, most recent episode (or current) depressed, severe, specified as with psychotic behavior Expected: 02/03/2016 (Approximate), Expires: 02/02/2017 documented as of this encounter Results * TSH (02/06/2016 2:36 PM EDT) Thyroid Stimulating Hormone 0.80 0.27 - 4.20 mcIU/mL [facility] Blood specimen (specimen) 02/06/2016 2:36 PM EDT 02/06/2016 2:41 PM EDT Narrative Resulting Agency Comment Spec In Lab Laura Pickering MD CHEMISTRY ORDERABLES Performing Organization Address [facility]/ZIP Co de Phone Number [facility] [place] [address] * [place] level (02/06/2016 2:36 PM EDT) [place] 0.12 mmol/L [facility] Comment: Therapeutic level for bipolar depression: 0.60-1.20 mmol/L Action Level: ?? Acute toxicity: ?>4.00 mmol/L ?? Chronic toxicity: ??>1.50 mmol/L Values greater than or equal to the action level necessitate clinical intervention. ??Values less than this level may necessitate intervention based on clinical condition of the patient. Ref: ??Goldfrank? s Toxicologic Emergencies 6th ed 1997; p. 967 Blood specimen (specimen) 02/06/2016 2:36 PM EDT 02/06/2016 2:41 PM EDT Narrative Resulting Agency Comment Spec In Lab Laura Pickering MD CHEMISTRY ORDERABLES Performing Organization Address [facility]/ZIP Co de Phone Number [facility] [place] [address] * Creatinine (02/06/2016 2:36 PM EDT) Creatinine 1.34 0.80 - 1.50 mg/dL [facility] Comment: Please note that the pediatric reference intervals supplied above were not validated at [facility]. Results from pediatric patients should be interpreted in conjunction to the patient's age, height and muscle mass. Est Glomerular Filtration Rate 60 >=60 [facility] Comment: This estimated GFR (eGFR) value was calculated using the MDRD equation which has been validated on patients between the ages of 18 and 70. The MDRD should not be used to assess kidney function in patients < 18 years of age or in patients with extremes of body mass, or in patients with acute kidney failure. This value should be multiplied by 1.2 for patients. For further information please copy and paste the following links into your internet browser. [email or web address] Blood specimen (specimen) 02/06/2016 2:36 PM EDT 02/06/2016 2:41 PM EDT Narrative Resulting Agency Comment Spec In Lab Laura Pickering MD CHEMISTRY ORDERABLES Performing Organization Address City/[facility] Co de Phone Number [facility] [place] [address] * Calcium (02/06/2016 2:36 PM EDT) Calcium 10.1 8.5 - 10.5 mg/dL [facility] Blood specimen (specimen) 02/06/2016 2:36 PM EDT 02/06/2016 2:41 PM EDT Narrative Resulting Agency Comment Spec In Lab Laura Pickering MD CHEMISTRY ORDERABLES Performing Organization Address [facility] Co de Phone Number [facility] [place] [address] documented in this encounter Visit Diagnoses Diagnosis Bipolar I disorder, most recent episode (or current) depressed, severe, specified as with psychotic behavior documented in this encounter Care Teams Aligning Checker Relationship Specialty Start Date End Date Tito Fisher MD [address] [place] [address] PCP - General Family Medicine 12/09/15 06/27/16 documented as of this encounter
--- OUTSIDE RECORDS SUMMARY | 2024-06-21 15:32 | XMS_ITS | Encounter Summary ---
Author Organization [facility] [place] [address] Care Team Providers Care Planning Director Name Role Phone Laura Ho MD Primary Care Provider [phone] Encounter Details Date Type Department Care Team (Latest Contact Info) Description 01/12/2018 Transcribe [place] [address] Karlene Castellon APRN [address] [place] [address] Localized edema; Hepatitis C virus infection without hepatic coma, unspecified chronicity Social History Tobacco Use Types Packs/Day Years [...] Lab Use Only, Fax Request Lab Routine Localized edema Hepatitis C virus infection without hepatic coma, unspecified chronicity Expected: 01/12/2018 (Approximate), Expires: 01/12/2019 documented as of this encounter Results * (ABNORMAL) Comprehensive metabolic panel (non-fasting) (01/13/2018 8:40 AM EDT) Glucose 116 65 - 199 mg/dL [facility] Comment:Diabetes: >=200 mg/d L plus symptoms Blood Urea Nitrogen 18 10 - 20 mg/dL [facility] Creatinine 1.27 0.80 - 1.50 mg/dL [facility] Sodium 138 135 - 145 mmol/L [facility] Potassium 3.8 3.5 - 5.0 mmol/L [facility] Comment: Please note: ??Patients with WBC >100,000 may have falsely elevated Potassium levels. ??For accurate Potassium quantification in these patients send serum separator tube (gold top) for subsequent determinations. ??Contact the Clinical Chemistry Laboratory if there are any questions. Chloride 100 98 - 107 mmol/L [facility] Carbon Dioxide 26 22 - 31 mmol/L [facility] Anion Gap 12 5 - 15 mmol/L [facility] Calcium 10.0 8.5 - 10.5 mg/dL [facility] Protein, Total 7.2 6.1 - 8.0 gm/dL [facility] Albumin 4.6 3.2 - 5.2 gm/dL [facility] Aspartate Aminotransferase 55(H) 0 - 39 unit/L [facility] Alanine Aminotransferase 84(H) 0 - 55 unit/L [facility] Alkaline Phosphatase 107 40 - 120 unit/L [facility] Bilirubin, Total 0.5 0.2 - 1.3 mg/dL [facility] Est Glomerular Filtration Rate 71 >=60 mL/min/1. 73 m?? [facility] Comment: The eGFR was calculated using the CKD-EPI equation. As with all creatinine based estimates of kidney function, eGFR values calculated with the CKD-EPI equation are not accurate in patients with acute kidney failure, extremes of body mass or the acutely ill. [email or web address] eGFR 82 >=60 mL/min/1. 73 m?? [facility] Comment: The eGFR was calculated using the CKD-EPI equation. As with all creatinine based estimates of kidney function, eGFR values calculated with the CKD-EPI equation are not accurate in patients with acute kidney failure, extremes of body mass or the acutely ill. [email or web address] Blood specimen (specimen) 01/13/2018 8:40 AM EDT 01/13/2018 8:45 AM EDT Narrative Resulting Agency Comment Spec In Lab Karlene Castellon SECTIONIZER CHEMISTRY ORDERAB LES Performing Organization Address City/[facility] Co de Phone Number [facility] [place] [address] * pro-Brain Natriuretic Peptide (01/13/2018 8:40 AM EDT) NT-proBNP 30 <=125 pg/mL [facility] Blood specimen (specimen) 01/13/2018 8:40 AM EDT 01/13/2018 8:45 AM EDT Narrative Resulting Agency Comment Spec In Lab Karlene Castellon SECTIONIZER CHEMISTRY ORDERAB LES Performing Organization Address [facility] Co de Phone Number [facility] [place] [address] * Hepatitis C RNA, quantitative, PCR (01/13/2018 8:40 AM EDT) Pathologist [facility] HCV Viral Load 171,046 IU/mL [facility] HCV Viral Load Result: [id number] IU/mL Indication for Study: Hepatitis C Infection Analysis: The Nunez RealTime HCV assay is an in vitro reverse operations lieutenant polymerase chain reaction (RT-PCR)for the quantitation of hepatitis C viral (HCV) RNA in human serum or plasma (EDTA) from HCV-infected individuals. Sample: plasma (0.7 mL minimum volume) Method: Nunez RealTime HCV Assay Linear Range: 12 IU/mL - 100,000,000IU/mL Note: The Nunez RealTime HCV Assay has been approved by the U.S. Food and Drug Administration. [facility] Comment: [VERIFIED DATE]01.17.18 Verified By:Harvey Anand (Electronic Signature) Blood specimen (specimen) 01/13/2018 8:40 AM EDT 01/16/2018 8:12 AM EDT Narrative Resulting Agency Comment Spec In Lab Karlene Castellon APRN MOLECULAR ORDERAB LES Performing Organization Address [facility]/ZIP Co de Phone Number [facility] [place] [address] * Lamotrigine Lvl (01/13/2018 8:40 AM EDT) Lamotrigine Lvl (NOVEMBER) 2.9 2.5 - 15.0 mcg/mL [facility] Comment: ADDITIONAL INFORMATION This test was developed and its performance characteristics determined by [facility] in a manner consistent with CLIA requirements. This test has not been cleared or approved by the U.S. Food and Drug Administration. Test Performed by: [facility] [address] [place] [address] Blood specimen (specimen) 01/13/2018 8:40 AM EDT 01/13/2018 11:53 AM EDT Narrative Resulting Agency Comment Spec In Lab Karlene Castellon APRN LAB SEND OUT ORDE RABLES Performing Organization Address [facility] Co de Phone Number [facility] [place] [address] * TSH (01/13/2018 8:40 AM EDT) [facility] Thyroid Stimulating Hormone 3.44 0.27 - 4.20 mlU/ML [facility] Blood specimen (specimen) 01/13/2018 8:40 AM EDT 01/13/2018 8:45 AM EDT Narrative Resulting Agency Comment Spec In Lab Karlene Castellon APRN CHEMISTRY ORDERAB LES Performing Organization Address [facility] Co de Phone Number [facility] [place] [address] * Magnesium (01/13/2018 8:40 AM EDT) Magnesium 0.96 0.69 - 1.07 mmol/L [facility] Blood specimen (specimen) 01/13/2018 8:40 AM EDT 01/13/2018 8:45 AM EDT Narrative Resulting Agency Comment Spec In Lab Karlene Castellon SECTIONIZER CHEMISTRY ORDERAB LES Performing Organization Address [facility] de Phone Number [facility] [place] [address] * [place] level (01/13/2018 8:40 AM EDT) [place] 1.17 <=1.20 mmol/L [facility] Comment: Therapeutic level for bipolar depression: 0.60-1.20 mmol/L Action Level: ?? Acute toxicity: ?>4.00 mmol/L ?? Chronic toxicity: ??>1.50 mmol/L Values greater than or equal to the action level necessitate clinical intervention. ??Values less than this level may necessitate intervention based on clinical condition of the patient. Ref: ??Goldfrank? s Toxicologic Emergencies 6th ed 1997; p. 967 Blood specimen (specimen) 01/13/2018 8:40 AM EDT 01/13/2018 8:45 AM EDT Narrative Resulting Agency Comment Spec In Lab Karlene Loyaell SECTIONIZER CHEMISTRY ORDERAB LES Performing Organization Address [facility] Co de Phone Number [facility] [place] [address] documented in this encounter Visit Diagnoses Diagnosis Localized edema Edema Hepatitis C virus infection without hepatic coma, unspecified chronicity documented in this encounter Care Teams Planning Director Relationship Specialty Start Date End Date Laura Ho MD [address] [place] [address] PCP - General Family Medicine 06/28/16 documented as of this encounter
--- OUTSIDE RECORDS SUMMARY | 2024-06-21 15:32 | XMS_ITS | Encounter Summary ---
Author Organization [facility] Address [address] [place] [address] Care Team Providers Care Court Reporter Name Role Phone Laura Ho MD Primary Care Provider [phone] Encounter Details Date Type Department Care Team (Latest Contact Info) Description 04/03/2024 Specialty Pharmacy [facility] [address] [place], [place] [id number] Clara Carpenter RPH Refill Coordination Outreach for Addiction Medicine Social History Tobacco Use Types Packs/Day Years Used Date Smoking Tobacco: Every Day Cigarettes 2 30 Smokeless Tobacco: Never Alcohol Use Standard Drinks/Week Comments Yes 16 (1 standard drink = 0.6 oz pu re alcohol) Interpersonal Safety Answer Date Record ed Physically Hurt Never 02/10/2020 Verbally Threaten Not on file 02/10/2020 Sex and Gender Information Value Date Recorded Sex Assigned at Not on file Legal Sex Male 22:57 EDT Gender Identity Not on file Sexual Orientation Not on file documented as of this encounter Functional Status * Is this person blind or does he/she have serious difficulty seeing even when wearing glasses? Answer Date of Assessment Author Yes 12/25/2019 14:09 EDT * Because of a physical, mental, or emotional condition, does this person have difficulty doing errands alone such as visiting a doctor's office or shopping? Answer Date of Assessment Author No 12/25/2019 14:09 EDT documented as of this encounter Mental Status * Because of a physical, mental, or emotional condition, does this person have serious difficulty concentrating, remembering, or making decisions? Answer Entry Date Author No 12/25/2019 14:09 EDT documented in this encounter Plan of Treatment Not on file documented as of this encounter Visit Diagnoses Not on filedocumented in this encounter Care Teams Court Reporter Relationship Specialty Start Date End Date Laura Ho MD [address] [place] [address] PCP - General 12/25/19 documented as of this encounter
--- OUTSIDE RECORDS SUMMARY | 2024-06-21 15:32 | XMS_ITS | Encounter Summary ---
Author Organization [facility] [place] [address] Care Team Providers Care Vacuum Cleaner Repairer Name Role Phone Tito Fisher MD Primary Care Provider [phone] Encounter Details Date Type Department Care Team (Latest Contact Info) Description 02/06/2016 1:55 PM EDT Laboratory Appointment Lab [address] [place] [phone] Bipolar I disorder, most recent episode (or [...] Procedure Name Priority Date/Time Associated Diagnosis Comments CREATININE Routine 02/06/2016 2:36 PM EDT Bipolar I disorder, most recent episode (or current) depressed, severe, specified as with psychotic behavior TSH Routine 02/06/2016 2:36 PM EDT Bipolar I disorder, most recent episode (or current) depressed, severe, specified as with psychotic behavior CALCIUM Routine 02/06/2016 2:36 PM EDT Bipolar I disorder, most recent episode (or current) depressed, severe, specified as with psychotic behavior LITHIUM LEVEL Routine 02/06/2016 2:36 PM EDT Bipolar I disorder, most recent episode (or current) depressed, severe, specified as with psychotic behavior documented in this encounter Results * TSH (02/06/2016 2:36 PM EDT) Thyroid Stimulating Hormone 0.80 0.27 - 4.20 mcIU/mL [facility] Blood specimen (specimen) 02/06/2016 2:36 PM EDT 02/06/2016 2:41 PM EDT Narrative Resulting Agency Comment Spec In Lab Laura Pickering MD CHEMISTRY ORDERABLES Performing Organization Address [facility] Co de Phone Number [facility] [place] [address] * [place] level (02/06/2016 2:36 PM EDT) [place] 0.12 mmol/L [facility] Comment: Therapeutic level for bipolar [...] Pickering MD CHEMISTRY ORDERABLES Performing Organization Address [facility] Co de Phone Number [facility] [place] [address] * Creatinine (02/06/2016 2:36 PM EDT) Creatinine 1.34 0.80 - 1.50 mg/dL [facility] Comment: Please note that the pediatric reference intervals supplied above were not validated at [facility]. Results from pediatric patients should be interpreted in conjunction to the patient's age, height and muscle mass. Est Glomerular Filtration Rate 60 >=60 [facility] Comment: This estimated GFR (eGFR) [...] the following links into your internet browser. [email or web address] Blood specimen (specimen) 02/06/2016 2:36 PM EDT 02/06/2016 2:41 PM EDT Narrative Resulting Agency Comment Spec In Lab Laura Pickering MD CHEMISTRY ORDERABLES Performing Organization Address City/[facility] Co de Phone Number [facility] [place] [address] * Calcium (02/06/2016 2:36 PM EDT) Calcium 10.1 8.5 - 10.5 mg/dL [facility] Blood specimen (specimen) 02/06/2016 2:36 PM EDT 02/06/2016 2:41 PM EDT Narrative Resulting Agency Comment Spec In Lab Laura Pickering MD CHEMISTRY ORDERABLES Performing Organization Address City/[facility] Co de Phone Number [facility] [place] [address] documented in this encounter Visit Diagnoses Diagnosis Bipolar I disorder, most recent episode (or current) depressed, severe, specified as with psychotic behavior documented in this encounter Care Teams Vacuum Cleaner Repairer Relationship Specialty Start Date End Date Tito Fisher MD [address] [place] [address] PCP - General Family Medicine 12/09/15 06/27/16 documented as of this encounter
--- OUTSIDE RECORDS SUMMARY | 2024-06-21 15:32 | XMS_ITS | Encounter Summary ---
Author Organization [facility] [place] [address] Care Team Providers Care Port Engineer Name Role Phone Tito Fisher MD Primary Care Provider [phone] Encounter Details Date Type Department Care Team (Late st Contact Info) Description 01/22/2016 12:40 PM EDT Laboratory Appointment Lab [address] [place] [phone] Social History Tobacco Use Types Packs/Day Years Used Date Smoking Tobacco: Every Day Alcohol Use Standard Drinks/Week Comments No 0 (1 standard drink = 0.6 oz pur e alcohol) Sex and Gender Information Value Date Recorded Sex Assigned at Not on file Gender Identity Not on file Sexual Orientation Not on file documented as of this encounter Miscellaneous Notes * Consult Note - Faby Smith, RN - 01/22/2016 12:40 PM EDT [facility] called to obtain peripheral labs. Ultra Sound was needed with success for labs from right AC. documented in this encounter Plan of Treatment Not on file documented as of this encounter Procedures Procedure Name Priority Date/Time Associated Diagnosis Comments HEMOGRAM Routine 01/22/2016 3:06 PM EDT DIFFERENTIAL, AUTOMATED Routine 01/22/2016 3:06 PM EDT TSH Routine 01/22/2016 3:06 PM EDT COMPREHENSIVE METABOLIC PANEL Routine 01/22/2016 3:06 PM EDT HCV GENOTYPE Routine 01/22/2016 1:09 PM EDT HEPATITIS C RNA, QUANTITATIVE, PCR Routine 01/22/2016 1:09 PM EDT documented in this encounter Results * (ABNORMAL) Comprehensive metabolic panel (non-fasting) (01/22/2016 3:06 PM EDT) Glucose 74 65 - 199 mg/dL [facility] Comment:Diabetes: >=200 mg/d L plus symptoms Blood Urea Nitrogen 12 10 - 20 mg/dL [facility] Creatinine 1.17 0.80 - 1.50 mg/dL [facility] Comment: Please note that the pediatric reference intervals supplied above were not validated at [facility]. Results from pediatric patients should be interpreted in conjunction to the patient's age, height and muscle mass. Sodium 138 135 - 145 mmol/L [facility] Potassium 4.0 3.5 - 5.0 mmol/L [facility] Comment: Please note: ??Patients with WBC >100,000 may have falsely elevated Potassium levels. ??For accurate Potassium quantification in these patients send serum separator tube (gold top) for subsequent determinations. ??Contact the Clinical Chemistry Laboratory if there are any questions. Chloride 98 98 - 107 mmol/L [facility] Carbon Dioxide 25 22 - 31 mmol/L [facility] Anion Gap 15 5 - 15 mmol/L [facility] Calcium 9.7 8.5 - 10.5 mg/dL [facility] Protein, Total 8.3(H) 6.1 - 8.0 gm/dL [facility] Albumin 4.5 3.2 - 5.2 gm/dL [facility] Aspartate Aminotransferase 49(H) 0 - 39 unit/L [facility] Alanine Aminotransferase 69(H) 0 - 55 unit/L [facility] Alkaline Phosphatase 78 40 - 120 unit/L [facility] Bilirubin, Total 0.4 0.2 - 1.3 mg/dL [facility] Bilirubin, Direct 0.1 0.0 - 0.3 mg/dL [facility] Est Glomerular Filtration Rate >60 >=60 [facility] Comment: This estimated GFR (eGFR) [...] the following links into your internet browser. [email or web address] Blood specimen (specimen) Venous Draw / Unknown 01/22/2016 3:06 PM EDT 01/22/2016 3:11 PM EDT Narrative Resulting Agency Comment Spec In Lab Raulito Posada MD CHEMISTRY ORDERABLES [facility] [place] [id number] * (ABNORMAL) Differential, Automated (01/22/2016 3:06 PM EDT) Neutrophil % 49.3 % [facility] Neutrophil Absolute 4.12 1.50 - 6.30 x10(3)/mc L [facility] Lymph % 29.7 % [facility] Lymphocytes Abs 2.5 1.0 - 3.6 x10(3)/mc L [facility] Monocyte % 12.0 % [facility] Monocyte Abs 1.0 0.2 - 1.0 x10(3)/mc L [facility] Eos % 7.8 % [facility] Eosinophils Abs 0.6(H) 0.0 - 0.5 x10(3)/mc L [facility] Basophil % 1.1 % [facility] Baso Absolute 0.1 0.0 - 0.2 x10(3)/ L [facility] Immature Gran % 0.10 % [facility] Comment: Immature granulocytes(IG's)percentage and absolute count will include metamyelocytes, myelocytes, and promyelocytes. Blood smears from CBCs yielding IG's will be scanned manually for concordance. If this scan disagrees with the automated IG or if promyelocytes are noted, a manual differential will be performed. Immature Gran Absolute 0.01 0.00 - 0.05 x10(3)/ L [facility] Blood specimen (specimen) Venous Draw / Unknown 01/22/2016 3:06 PM EDT 01/22/2016 3:11 PM EDT Narrative Resulting Agency Comment Spec In Lab Raulito Posada MD HEMATOLOGY ORDERABLE S Performing Organization Address City/State/[facility] Co de Phone Number [facility] [place] [address] * (ABNORMAL) Hemogram (01/22/2016 3:06 PM EDT) White Blood Cell 8.4 4.0 - 10.0 x10(3)/[facility] Red Blood Cell 4.99 4.63 - 6.08 x10(6)/[facility] Hemoglobin 15.5 13.7 - 17.5 gm/dL [facility] Hematocrit 45.4 40.0 - 51.0 % [facility] Mean Cell Volume 91.0 79.0 - 92.0 fL [facility] Mean Cell Hemoglobin 31.1 25.6 - 32.2 pg [facility] Mean Cell Hemoglobin Concentration 34.1 32.0 - 36.5 gm/dL [facility] Platelet 328 145 - 370 x10(3)/ L [facility] RDW Standard Deviation 46.7(H) 35.0 - 46.0 fL [facility] RDW coefficient of variation 14.1 10.9 - 14.4 % [facility] Mean Platelet Volume 10.3 9.0 - 12.0 fL [facility] Blood specimen (specimen) Venous Draw / Unknown 01/22/2016 3:06 PM EDT 01/22/2016 3:11 PM EDT Narrative Resulting Agency Comment Spec In Lab Raulito Posada MD HEMATOLOGY ORDERABLE S Performing Organization Address City/[facility]/ZIP Co de Phone Number [facility] [address] * TSH (01/22/2016 3:06 PM EDT) Thyroid Stimulating Hormone 1.06 0.27 - 4.20 mcIU/mL [facility] Blood specimen (specimen) Venous Draw / Unknown 01/22/2016 3:06 PM EDT 01/22/2016 3:11 PM EDT Narrative Resulting Agency Comment Spec In Lab Raulito Posada MD CHEMISTRY ORDERABLES Performing Organization Address City/[facility] Co de Phone Number [facility] [place] [address] * HCV Genotype (01/22/2016 1:09 PM EDT) HCV Genotype Indication for study Hepatitis C Infection Result 3 Interpretation: The genotyping analysis has identified the presence of HCV genotype ??3 in the submitted specimen. ??In the [place], the most common HCV genotypes are 1a and 1b, followed by genotypes 2 and 3. Genotypes 2 and 3 have better therapeutic response rates (80%) than genotypes 1 and 4 (45%) to current standard therapy (ribavirin plus pegylated interferon alpha-2a or alpha-2b). Response rate of genotype 5 appears to be similar to those of genotypes 2 and 3 whereas genotype 6 may be at an intermediate level between genotype 1 and genotypes 2 or 3. Analysis: Identification of HCV genotype was carried out using SMR SITE-8 detection system. Method: Plasma was initially subjected to quantitative RT-PCR using the Rigoberto LAZARA Ampliprep/LAZARA Taqman HCV assay. The HCV genotyping was carried out using SMR SITE-8 detection system that targets 5? -untranslated region of the HCV genome. The amplicon from the Rigoberto assay served as a template for the nested PCR followed by a direct analysis on the electrochemical Wedding Spot XT-8 detection system for the identification of HCV genotypes. The genotypes/subtypes detected by this method include 1a, 1b, 2a/c, 2b, 3, 4, 5 and 6a/b. This test was validated and its performance characteristics determined by the Molecular Pathology Laboratory at [facility]. It has not been cleared or approved by the FDA. This laboratory is regulated under CLIA as qualified to perform high-complexity testing. This test is used for clinical purposes. It should not be regarded as investigational or for research. References: Klerheas RM, Joaquin DJ, Hansel R, Floridalma SD. Evolving epidemiology of hepatitis C virus in the [place]. Clin Infect Dis. 2012; 55:S3-9. Dacia F, Jayla Staley. Treating hepatitis C: current standard of care and emerging direct-acting antiviral agents. J Viral Hepat. 2012; 19:449-64. Ko MH, Kekarin EB. Prevalence and treatment of hepatitis C virus genotypes 4, 5, and 6. Clin Gastroenterol Hepatol. 2005; 3:W75-P163. Green JS, Aspinall E, Neil D, Foley AJ, Kayla ME. Current and emerging antiviral treatments for hepatitis C infection. Br J Clin Pharmacol. 2012 Feb 13. [Epub ahead of print] [facility] Comment: [VERIFIED DATE]01.28.16 Verified By:Sabi Ayon (Electronic Signature) Blood specimen (specimen) Venous Draw / Unknown 01/22/2016 1:09 PM EDT 01/27/2016 8:16 AM EDT Narrative Resulting Agency Comment Spec In Lab Raulito Posada MD HEMATOLOGY ORDERABLE S [facility] [place] [address] * Hepatitis C RNA, quantitative, PCR (01/22/2016 1:09 PM EDT) HCV Viral Load 866,464 IU/mL [facility] HCV Viral Load Result: [id number] IU/mL Indication for Study: Hepatitis C Infection Analysis: A quantitiative real time reverse transcriptase PCR assay was performed on extracted viral RNA for the purpose of quantification. Sample: plasma (1 mL minimum volume) Method: Rigoberto Lazara TaqMAN 48 HCV Linear Range: 15 IU/mL - 100,000,000IU/mL (95% CI) Note: This assay is being performed in the [facility] Molecular Pathology Laboratory. Richard Parsons, Ph.D. Director, Molecular Pathology [facility] Comment: [VERIFIED DATE]01.28.16 Verified By:Sabi Ayon (Electronic Signature) Blood specimen (specimen) Venous Draw / Unknown 01/22/2016 1:09 PM EDT 01/27/2016 8:16 AM EDT Narrative Resulting Agency Comment Spec In Lab Raulito Posada [place] [address] documented in this encounter Visit Diagnoses Not on filedocumented in this encounter Care Teams Port Engineer Relationship Specialty Start Date End Date Tito Fisher MD [address] [place] [address] PCP - General Family Medicine 12/09/15 06/27/16 documented as of this encounter
--- OUTSIDE RECORDS SUMMARY | 2024-06-21 15:32 | XMS_ITS | Encounter Summary ---
Author Organization [facility] [place] [address] Care Team Providers Care Catalogue Maker Name Role Phone Tito Fisher MD Primary Care Provider [phone] Encounter Details Date Type Department Care Team (Latest Contact Info) Description 02/13/2016 2:45 PM EDT Laboratory Appointment Lab [address] [place] [phone] Bipolar I disorder, most recent episode (or [...] Priority Date/Time Associated Diagnosis Comments CREATININE Routine 02/13/2016 3:01 PM EDT Bipolar I disorder, most recent episode (or current) depressed, severe, specified as with psychotic behavior TSH Routine 02/13/2016 3:01 PM EDT Bipolar I disorder, most recent episode (or current) depressed, severe, specified as with psychotic behavior CALCIUM Routine 02/13/2016 3:01 PM EDT Bipolar I disorder, most recent episode (or current) depressed, severe, specified as with psychotic behavior LITHIUM LEVEL Routine 02/13/2016 3:01 PM EDT Bipolar I disorder, most recent episode (or current) depressed, severe, specified as with psychotic behavior documented in this encounter Results * TSH (02/13/2016 3:01 PM EDT) Thyroid Stimulating Hormone 2.67 0.27 - 4.20 mcIU/mL [facility] Blood specimen (specimen) 02/13/2016 3:01 PM EDT 02/13/2016 3:09 PM EDT Narrative Resulting Agency Comment Spec In Lab Laura Pickering MD CHEMISTRY ORDERABLES Performing Organization Address [facility] Co de Phone Number [facility] [place] [address] * [place] level (02/13/2016 3:01 PM EDT) [place] 0.23 mmol/L [facility] Comment: Therapeutic level for bipolar depression: 0.60-1.20 mmol/L Action Level: ?? Acute toxicity: ?>4.00 mmol/L ?? Chronic toxicity: ??>1.50 mmol/L Values greater than or equal to the action level necessitate clinical intervention. ??Values less than this level may necessitate intervention based on clinical condition of the patient. Ref: ??Goldfrank? s Toxicologic Emergencies 6th ed 1997; p. 967 Blood specimen (specimen) 02/13/2016 3:01 PM EDT 02/13/2016 3:09 PM EDT Narrative Resulting Agency Comment Spec In Lab Laura Pickering MD CHEMISTRY ORDERABLES Performing Organization Address [facility] Co de Phone Number [facility] [place] [address] * Creatinine (02/13/2016 3:01 PM EDT) Creatinine 1.18 0.80 - 1.50 mg/dL [facility] Comment: Please note that the pediatric reference intervals supplied above were not validated at [facility] [place] [place]. Results from pediatric patients should be interpreted in conjunction to the patient's age, height and muscle mass. Est Glomerular Filtration Rate >60 >=60 [facility] Comment: This [...] the following links into your internet browser. [email or web address] Blood specimen (specimen) 02/13/2016 3:01 PM EDT 02/13/2016 3:09 PM EDT Narrative Resulting Agency Comment Spec In Lab Laura Pickering MD CHEMISTRY ORDERABLES Performing Organization Address City/[facility]/ZIP Co de Phone Number [facility] [place] [address] * Calcium (02/13/2016 3:01 PM EDT) Calcium 10.0 8.5 - 10.5 mg/dL [facility] Blood specimen (specimen) 02/13/2016 3:01 PM EDT 02/13/2016 3:09 PM EDT Narrative Resulting Agency Comment Spec In Lab Laura Pickering MD CHEMISTRY ORDERABLES Performing Organization Address City/[facility]/ZIP Co de Phone Number [facility] [place] [address] documented in this encounter Visit Diagnoses Diagnosis Bipolar I disorder, most recent episode (or current) depressed, severe, specified as with psychotic behavior documented in this encounter Care Teams Catalogue Maker Relationship Specialty Start Date End Date Tito Fisher MD [address] [place] [address] PCP - General Family Medicine 12/09/15 06/27/16 documented as of this encounter
--- OUTSIDE RECORDS SUMMARY | 2024-06-21 15:32 | XMS_ITS | Encounter Summary ---
Author Organization [facility] Address [facility] [address] [place] [address] Care Team Providers Care Outside Plant Supervisor Name Role Phone Laura Ho MD Primary Care Provider [phone] Encounter Details Date Type Department Care Team (Late st Contact Info) Description 08/22/2019 Ancillary Procedure Radiology Library at [facility] [place] [address] Gorge Edgar MD [facility] [place] [address] Social History Tobacco Use Types Packs/Day Years [...] Diagnosis Comments FILM LIBRARY STORAGE ONLY DX CHEST Routine 08/22/2019 12:00 AM EST documented in this encounter Results * Film Library- Storage Only DX Chest (08/22/2019 12:00 AM EST) Narrative SUSAN - 08/30/2019 10:10 PM EST This exam is auto-finalizing. It's purpose is for storage only. Gorge Edgar MD G FILM LIBRARY ORD ERABLES [place], [place] documented in this encounter Visit Diagnoses Not on filedocumented in this encounter Care Teams Outside Plant Supervisor Relationship Specialty Start Date End Date Laura Ho MD [address] [place] [address] PCP - General Family Medicine 06/28/16 documented as of this encounter
--- OUTSIDE RECORDS SUMMARY | 2024-06-21 15:32 | XMS_ITS | Encounter Summary ---
Author Organization [facility] Address [facility] [place] [address] Care Team Providers Care Central Service Supply Distributor Name Role Phone Laura Ho MD Primary Care Provider [phone] Encounter Details Date Type Department Care Team (Latest Contact Info) Description 01/18/2018 7:52 AM EDT - 01/18/2018 11:59 PM EDT Hospital [place] [id number] Kyle Hester APRN [address] [place] [address] Hepatitis C virus infection without hepatic coma, unspecified chronicity Discharge Disposition: Home Social History Tobacco Use [...] Sig Dispensed Refills Start Date End Date lithium 300 mg Capsule Take 1,050 mg by mouth nightly. buprenorphine-nalOXone (SUBOXONE) 8-[address] 16 mg under the tongue daily. Dexmethylphenidate 30 mg Capsule, Multiphasic Rel.50-50 Take 30 mg by mouth daily. lamoTRIgine (LAMICTAL) 25 mg Tablet Take 125 mg by mouth nightly. cloNIDine (CATAPRES) 0.1 mg Tablet Take 0.1 mg by mouth nightly. 08/05/2020 documented as of this encounter Plan of Treatment Not on file documented as of this encounter Procedures Procedure Name Priority Date/Time Associated Diagnosis Comments US ABDOMEN LIMITED Routine 01/18/2018 8: 56 AM EDT Hepatitis C virus infection without hepatic coma, unspecified chronicity documented in this encounter Results * US Abdomen Limited (01/18/2018 8:56 AM EDT) Anatomical Region Laterality Modality Abdomen Ultrasound 01/18/2018 8:20 AM EDT Impressions 01/18/2018 9:05 AM EDT ??Smooth liver capsule. Normal sonographic hepaticparenchymal echotexture without focal mass. No ascites. ?Jodee Colvin MD Electronically Signed Final Report ?? 01/18/2018 09:05 am Narrative 01/18/2018 9:05 AM EDT Abdominal ? (Signed Final 01/18/2018 09:05 am) PATIENT INFO: ID #: ? [id number] ?: ??[birth year] (37 yrs) Name: ? HARVEY RAMIREZ ?Visit Date: 01/18/2018 08:20 am PERFORMED BY: Performed By: ? Radha Knox RDMS Attending: ?Vinicius MURILLO, Jodee Flynn Referred By: ?KYLE HESTER Location: ? [place] SERVICE(S) PROVIDED: ??UABDLIM - Abdominal Limited Survey Single ? [id number] ??Organ or Quadrant - [id number] INDICATIONS: ??HEPATITIS C, LOOK AT THE LIVER COMPARISON: No prior studies for comparison. ------ LIVER: ------ Right Lobe Length: ?? 15.9 ?? cm Echogenicity/Echotexture: ?? Normal with smooth capsule GALLBLADDER: Cholelithiasis: ?No stones visualized Wall Thickness: ?1.9 mm Focal Tenderness: ?Negative sonographic Bess's sign BILIARY TRACT: Intrahepatic Ducts: ?? Normal Extrahepatic Ducts: ?? Normal Common Duct Size: ? 4.0 ? mm --------- PANCREAS: --------- Head: ? Normal Tail: ? Poorly visualized due to overlying bowel Body: ? Normal RIGHT KIDNEY: Size (cm) ?L: ??12.5 Cortical Thickness: ?Normal Cortical Echogenicity: ?? Normal Hydronephrosis: ?No sonographic evidence ------ AORTA: ------ Measurements (cm): Proximal ? AP: ?? 2.4 Comment: ?Normal in caliber where visualized. ---- IVC: ---- Normal in caliber where visualized. FLUID COLLECTIONS: No ascites in RUQ and RLQ. Procedure Note Jodee Colvin MD - 01/18/2018 Abdominal (Signed Final 01/18/2018 09:05 am) PATIENT INFO: ID #: [id number] : [birth year] (37 yrs) Name: HARVEY RAMIREZ Visit Date: 01/18/2018 08:20 am PERFORMED BY: Performed By: Radha Knox RDMS Attending: Jodee Colvin MD Referred By: KYLE HESTER Location: [place] SERVICE(S) PROVIDED: UABDLIM - Abdominal Limited Survey Single [id number] Organ or Quadrant - [id number] INDICATIONS: HEPATITIS C, LOOK AT THE LIVER COMPARISON: No prior studies for comparison. ------ LIVER: ------ Right Lobe Length: 15.9 cm Echogenicity/Echotexture: Normal with smooth capsule GALLBLADDER: Cholelithiasis: No stones visualized Wall Thickness: 1.9 mm Focal Tenderness: Negative sonographic Bess's sign BILIARY TRACT: Intrahepatic Ducts: Normal Extrahepatic Ducts: Normal Common Duct Size: 4.0 mm --------- PANCREAS: --------- Head: Normal Tail: Poorly visualized due to overlying bowel Body: Normal RIGHT KIDNEY: Size (cm) L: 12.5 Cortical Thickness: Normal Cortical Echogenicity: Normal Hydronephrosis: No sonographic evidence ------ AORTA: ------ Measurements (cm): Proximal AP: 2.4 Comment: Normal in caliber where visualized. ---- IVC: ---- Normal in caliber where visualized. FLUID COLLECTIONS: No ascites in RUQ and RLQ. IMPRESSION Smooth liver capsule. Normal sonographic hepaticparenchymal echotexture without focal mass. No ascites. Jodee Colvin MD Electronically Signed Final Report 01/18/2018 09:05 am Kyle Hester EPIC WILLOW ANALYST IMG US GEN ORDERA BLES documented in this encounter Visit Diagnoses Diagnosis Hepatitis C virus infection without hepatic coma, unspecified chronicity documented in this encounter Care Teams Central Service Supply Distributor Relationship Specialty Start Date End Date Laura Ho MD [address] [place] [id number] PCP - General Family Medicine 06/28/16 documented as of this encounter
--- OUTSIDE RECORDS SUMMARY | 2024-06-21 15:32 | XMS_ITS | Encounter Summary ---
[place] [address] Care Team Providers Care Prepared Foods Team Leader Name Role Phone Laura Ho MD Primary Care Provider [phone] Encounter Details Date Type Department Care Team (Latest Contact Info) Description 08/26/2016 2:15 PM EST Laboratory Appointment Lab [address] [place] [phone] Bipolar I disorder, most recent episode (or [...] Priority Date/Time Associated Diagnosis Comments CREATININE Routine 08/26/2016 2:53 PM EST Bipolar I disorder, most recent episode (or current) depressed, severe, specified as with psychotic behavior TSH Routine 08/26/2016 2:53 PM EST Bipolar I disorder, most recent episode (or current) depressed, severe, specified as with psychotic behavior CALCIUM Routine 08/26/2016 2:53 PM EST Bipolar I disorder, most recent episode (or current) depressed, severe, specified as with psychotic behavior LITHIUM LEVEL Routine 08/26/2016 2:53 PM EST Bipolar I disorder, most recent episode (or current) depressed, severe, specified as with psychotic behavior documented in this encounter Results * TSH (08/26/2016 2:53 PM EST) Thyroid Stimulating Hormone 3.35 0.27 - 4.20 mcIU/mL [facility] Blood specimen (specimen) 08/26/2016 2:53 PM EST 08/26/2016 2:57 PM EST Narrative Resulting Agency Comment Spec In Lab Laura Pickering MD CHEMISTRY ORDERABLES Performing Organization Address [facility] de Phone Number [facility] [place] [address] * [place] level (08/26/2016 2:53 PM EST) [place] 1.04 mmol/L [facility] Comment: Therapeutic level for bipolar depression: 0.60-1.20 mmol/L Action Level: ?? Acute toxicity: ?>4.00 mmol/L ?? Chronic toxicity: ??>1.50 mmol/L Values greater than or equal to the action level necessitate clinical intervention. ??Values less than this level may necessitate intervention based on clinical condition of the patient. Ref: ??Milagros? s Toxicologic Emergencies 6th ed 1997; p. 967 Blood specimen (specimen) 08/26/2016 2:53 PM EST 08/26/2016 2:57 PM EST Narrative Resulting Agency Comment Spec In Lab Laura Pickering MD CHEMISTRY ORDERABLES Performing Organization Address [facility] Co de Phone Number [facility] [place] [address] * Creatinine (08/26/2016 2:53 PM EST) Creatinine 1.17 0.80 - 1.50 mg/dL [facility] Comment: Please note that the pediatric reference intervals supplied above were not validated at [facility]. Results from pediatric patients should be interpreted in conjunction to the patient's age, height and muscle mass. Est Glomerular Filtration Rate >60 >=60 [facility] Comment: This estimated GFR [...] the following links into your internet browser. [email or web address] Blood specimen (specimen) 08/26/2016 2:53 PM EST 08/26/2016 2:57 PM EST Narrative Resulting Agency Comment Spec In Lab Laura Pickering MD CHEMISTRY ORDERABLES Performing Organization Address [facility] Co de Phone Number [facility] [place] [address] * Calcium (08/26/2016 2:53 PM EST) Calcium 9.9 8.5 - 10.5 mg/dL [facility] Blood specimen (specimen) 08/26/2016 2:53 PM EST 08/26/2016 2:57 PM EST Narrative Resulting Agency Comment Spec In Lab Laura Pickering MD CHEMISTRY ORDERABLES Performing Organization Address [facility] Co de Phone Number [facility] [place] [address] documented in this encounter Visit Diagnoses Diagnosis Bipolar I disorder, most recent episode (or current) depressed, severe, specified as with psychotic behavior documented in this encounter Care Teams Prepared Foods Team Leader Relationship Specialty Start Date End Date Laura Ho MD [address] [place] [address] PCP - General Family Medicine 06/28/16 documented as of this encounter
--- OUTSIDE RECORDS SUMMARY | 2024-06-21 15:32 | XMS_ITS | Referral Summary ---
Author Organization [facility] Address [address] [place] [address] Care Team Providers Care Brine Room Laborer Name Role Phone Laura Ho MD Primary Care Provider [phone] Encounters Date Type Department Care Team Description 04/17/2024 Specialty Pharmacy [facility] [address] [place], [place] [id number] Clara Carpenter RPH 04/03/2024 Specialty Pharmacy [facility] [address] [place], [place] [address] Clara Carpenter [facility] Refill Coordination Outreach for Addiction Medicine from Last 3 Months Allergies Active Allergy Reactions Criticality Noted Date Comments Penicillins 01/17/2017 Medications Prazosin (MINIPRESS) 1 mg capsule Take 2 Capsules by mouth at bedtime. 12/20/2019 Active lamoTRIgine (LAMICTAL) 100 mg tablet Take 2 Tablets by mouth at bedtime. 12/06/2019 Active lamoTRIgine (LAMICTAL) 25 mg tablet TK 2 TS PO WITH 100MG T QD 11/29/2019 Active busPIRone (BUSPAR) 5 mg tablet Take 3 Tablets by mouth at bedtime. 12/14/2019 Active FOCALIN XR 30 mg capsule,ER biphasic 50-50 Take by mouth daily. 12/06/2019 Active lithium (LITHOBID) 300 mg CR tablet Take 450 mg by mouth daily. 11/23/2019 Active nicotine (NICODERM CQ) 21 mg/[address] 1 Patch onto the skin daily. Active ARIPiprazole (ABILIFY MAINTENA) 400 mg suspension Inject 400 mg into the muscle every 28 days. Active OLANZapine (ZYPREXA) 5 mg tablet Take 1 Tablet by mouth 3 times daily as needed. Active Active Problems Problem Noted Date Diagnosed Date Opioid use disorder 10/20/2023 Social History Tobacco Use Types Packs/Day Years Used Date Smoking Tobacco: Every Day Cigarettes 2 30 Smokeless Tobacco: Never Tobacco Cessation:Ready to Q uit: No; Counseling Given: No Alcohol Use Standard Drinks/Week Comments Yes 16 [...] Sign Reading Time Taken Comments Blood Pressure 108/52 12/25/2019 1415 EDT Pulse 68 12/25/2019 1415 EDT Temperature - - Respiratory Rate 20 12/25/2019 1415 EDT Oxygen Saturation - - Inhaled Oxygen Concentration - - Weight - - Height 185.4 cm (6' 1) 12/25/2019 1415 EDT Body Mass Index - - Functional Status * Is this person blind or does he/she have serious difficulty seeing even when wearing glasses? Answer Date of Assessment Author Yes 12/25/2019 14:09 EDT * Because of a physical, mental, or emotional condition, does this person have difficulty doing errands alone such as visiting a doctor's office or shopping? Answer Date of Assessment Author No 12/25/2019 14:09 EDT Mental Status * Because of a physical, mental, or emotional condition, does this person have serious difficulty concentrating, remembering, or making decisions? Answer Entry Date Author No 12/25/2019 14:09 EDT Plan of Treatment Not on file Procedures Procedure Name Priority Date/Time Associated Diagnosis Comments HCV RNA DETECT QUANT Routine 09/04/2019 15:57 EST from Last 3 Months or Most Recently Relevant to Health Maintenance Results * HCV RNA DETECT QUANT (09/04/2019 15:57 EST) HCV RNA Quantitative Undetected Undetected IU/mL 09/05/2019 22:50 EST [facility] Comment: Result in log IU/mL is Undetected. ADDITIONAL INFORMATION The quantification range of this assay is 15 to 100,000,000 IU/mL (1.18 log to 8.00 log IU/mL). Testing was performed using the elke HCV test ([employer] with the elke 6800 System. Test Performed by: [facility] [address] [place] [address] Kayaking Instructor: Jorge Luis Andre M.D. Ph.D.; CLIA# [id number] 09/04/2019 15:5 7 EST 09/04/2019 15:57 EST Narrative [facility] - 09/05/2019 22:50 EST Does PT Have a Latex Allergy? NO us Arian Charles MD CHEMISTRY & BLOOD GAS ORDERAB LES Final Result [facility] from Last 3 Months or Most Recently Relevant to Health Maintenance Insurance [place] Care Teams Brine Room Laborer Relationship Specialty Start Date End Date Laura Ho MD [address] [place] [phone] PCP - General 12/25/19
--- OUTSIDE RECORDS SUMMARY | 2024-06-21 15:32 | XMS_ITS | Encounter Summary ---
Author Organization [facility] Address [facility] [place] [address] Care Team Providers Care Laundrette Owner Name Role Phone Laura Ho MD Primary Care Provider [phone] Encounter Details Date Type Department Care Team (Latest Contact Info) Description 06/14/2018 Transcribe [place] [address] Laura Ho MD [address] [place] [address] Encounter for therapeutic drug monitoring Social History [...] Type Priority Associated Diagnoses Orde r Schedule [place] level Lab Routine Encounter for therapeutic drug monitoring Expected: 06/14/2018 (Approximate), Expires: 06/14/2019 CBC (with Diff) Lab Routine Encounter for therapeutic drug monitoring Expected: 06/14/2018 (Approximate), Expires: 06/14/2019 Comprehensive metabolic panel (non-fasting) Lab Routine Encounter for therapeutic drug monitoring Expected: 06/14/2018 (Approximate), Expires: 06/14/2019 Lab Use Only, Fax Request Lab Routine Encounter for therapeutic drug monitoring Expected: 06/14/2018 (Approximate), Expires: 06/14/2019 documented as of this encounter Visit Diagnoses Diagnosis Encounter for therapeutic drug monitoring documented in this encounter Care Teams Laundrette Owner Relationship Specialty Start Date End Date Laura Ho MD [address] [place] [address] PCP - General Family Medicine 06/28/16 documented as of this encounter
--- OUTSIDE RECORDS SUMMARY | 2024-06-21 15:32 | XMS_ITS | Encounter Summary ---
Author Organization [facility] Address [address] [place] [address] Care Team Providers Care Customer Account Manager Name Role Phone Laura Ho MD Primary Care Provider [phone] Encounter Details Date Type Department Care Team (Latest Contact Info) Description 01/11/2024 Specialty Pharmacy [facility] [address] [place], [place] [id number] Clara Carpenter RPH Refill Coordination Outreach for [...] on filedocumented in this encounter Care Teams Customer Account Manager Relationship Specialty Start Date End Date Laura Ho MD [address] [place] [address] PCP - General 12/25/19 documented as of this encounter
--- OUTSIDE RECORDS SUMMARY | 2024-06-21 15:32 | XMS_ITS | Encounter Summary ---
Author Organization [place] [address] Care Team Providers Care Bar Catcher Name Role Phone Laura Ho MD Primary Care Provider [phone] Encounter Details Date Type Department Care Team (Late st Contact Info) Description 11/24/[address] [place] [address] Laura Ho MD [address] [place], [place] [address] Social History Tobacco Use Types Packs/Day Years [...] on filedocumented in this encounter Care Teams Bar Catcher Relationship Specialty Start Date End Date Laura Ho MD [address] [place], [place] [address] PCP - General Family Medicine 06/28/16 documented as of this encounter
--- OUTSIDE RECORDS SUMMARY | 2024-06-21 15:32 | XMS_ITS | Encounter Summary ---
Author Organization [facility] Address [facility] [address] [address] Care Team Providers Care Cleaner Operator Name Role Phone Tito Fisher MD Primary Care Provider [phone] Encounter Details Date Type Department Care Team (Late st Contact Info) Description 12/29/2015 Tele[place] [address] Crystal Rosales APRN [facility] [place] [address] Social History Tobacco Use Types Packs/Day Years Used Date Smoking Tobacco: Every Day Alcohol Use Standard Drinks/Week Comments No 0 (1 standard drink = 0.6 oz pur e alcohol) Sex and Gender Information Value Date Recorded Sex Assigned at Not on file Gender Identity Not on file Sexual Orientation Not on file documented as of this encounter Miscellaneous Notes * Telephone Encounter - Crystal Rosales APRN - 12/29/2015 9:[address] Duvall has been unable to reach Mr. Espinosa regarding Hepatitis C screening performed while he was in the ED. I spoke to Macy from Dr. Fisher's office today and faxed over his lab results. They are familiar with Mr. Espinosa. He has no-showed his last three appointments with their office. They will not make future appointments with him, but will still see him same day. They will attempt to follow-up with Mr. Espinosa. documented in this encounter Plan of Treatment Not on file documented as of this encounter Visit Diagnoses Not on filedocumented in this encounter Care Teams Cleaner Operator Relationship Specialty Start Date End Date Tito Fisher MD [address] [place] [address] PCP - General Family Medicine 12/09/15 06/27/16 documented as of this encounter
--- OUTSIDE RECORDS SUMMARY | 2024-06-21 15:32 | XMS_ITS | Encounter Summary ---
[facility] [place] [address] Care Team Providers Care Poultry Inseminator Name Role Phone Laura Ho MD Primary Care Provider [phone] Encounter Details Date Type Department Care Team (Latest Contact Info) Description 06/28/2016 2:55 PM EST Laboratory Appointment Lab [address] [place] [phone] Bipolar I disorder, most recent episode (or [...] Priority Date/Time Associated Diagnosis Comments CREATININE Routine 06/28/2016 3:29 PM EST Bipolar I disorder, most recent episode (or current) depressed, severe, specified as with psychotic behavior TSH Routine 06/28/2016 3:29 PM EST Bipolar I disorder, most recent episode (or current) depressed, severe, specified as with psychotic behavior CALCIUM Routine 06/28/2016 3:29 PM EST Bipolar I disorder, most recent episode (or current) depressed, severe, specified as with psychotic behavior LITHIUM LEVEL Routine 06/28/2016 3:29 PM EST Bipolar I disorder, most recent episode (or current) depressed, severe, specified as with psychotic behavior documented in this encounter Results * TSH (06/28/2016 3:29 PM EST) Thyroid Stimulating Hormone 2.57 0.27 - 4.20 mcIU/mL [facility] Blood specimen (specimen) 06/28/2016 3:29 PM EST 06/28/2016 3:41 PM EST Narrative Resulting Agency Comment Spec In Lab Laura Pickering MD CHEMISTRY ORDERABLES Performing Organization Address [facility] de Phone Number [facility] [place] [address] * [place] level (06/28/2016 3:29 PM EST) [place] 0.84 mmol/L [facility] Comment: Therapeutic level for bipolar depression: 0.60-1.20 mmol/L Action Level: ?? Acute toxicity: ?>4.00 mmol/L ?? Chronic toxicity: ??>1.50 mmol/L Values greater than or equal to the action level necessitate clinical intervention. ??Values less than this level may necessitate intervention based on clinical condition of the patient. Ref: ??Milagros? s Toxicologic Emergencies 6th ed 1997; p. 967 Blood specimen (specimen) 06/28/2016 3:29 PM EST 06/28/2016 3:41 PM EST Narrative Resulting Agency Comment Spec In Lab Laura Pickering MD CHEMISTRY ORDERABLES Performing Organization Address [facility] Co de Phone Number [facility] [place] [address] * Creatinine (06/28/2016 3:29 PM EST) Creatinine 1.25 0.80 - 1.50 mg/dL [facility] Comment: Please note that the pediatric reference intervals supplied above were not validated at [facility]. Results from pediatric patients should be interpreted in conjunction to the patient's age, height and muscle mass. Est Glomerular Filtration Rate >60 >=60 [facility] Comment: This estimated GFR (eGFR) [...] the following links into your internet browser. [email or web address] Blood specimen (specimen) 06/28/2016 3:29 PM EST 06/28/2016 3:41 PM EST Narrative Resulting Agency Comment Spec In Lab Laura Pickering MD CHEMISTRY ORDERABLES Performing Organization Address [facility] Co de Phone Number [facility] [place] [address] * Calcium (06/28/2016 3:29 PM EST) Calcium 10.5 8.5 - 10.5 mg/dL [facility] Blood specimen (specimen) 06/28/2016 3:29 PM EST 06/28/2016 3:41 PM EST Narrative Resulting Agency Comment Spec In Lab Laura Pickering MD CHEMISTRY ORDERABLES Performing Organization Address [facility] Co de Phone Number [facility] [place] [address] documented in this encounter Visit Diagnoses Diagnosis Bipolar I disorder, most recent episode (or current) depressed, severe, specified as with psychotic behavior documented in this encounter Care Teams Poultry Inseminator Relationship Specialty Start Date End Date Laura Ho MD [address] [place] [address] PCP - General Family Medicine 06/28/16 documented as of this encounter
--- OUTSIDE RECORDS SUMMARY | 2024-06-21 15:32 | XMS_ITS | Encounter Summary ---
Author Organization [facility] [place] [address] Care Team Providers Care Elevator Technician Name Role Phone Tito Fisher MD Primary Care Provider [phone] Encounter Details Date Type Department Care Team (Latest Contact Info) Description 02/23/2016 12:45 PM EDT Laboratory Appointment Lab [address] [place] [id number] Bipolar I disorder, most recent episode (or [...] Priority Date/Time Associated Diagnosis Comments CREATININE Routine 02/23/2016 1:21 PM EDT Bipolar I disorder, most recent episode (or current) depressed, severe, specified as with psychotic behavior TSH Routine 02/23/2016 1:21 PM EDT Bipolar I disorder, most recent episode (or current) depressed, severe, specified as with psychotic behavior CALCIUM Routine 02/23/2016 1:21 PM EDT Bipolar I disorder, most recent episode (or current) depressed, severe, specified as with psychotic behavior LITHIUM LEVEL Routine 02/23/2016 1:21 PM EDT Bipolar I disorder, most recent episode (or current) depressed, severe, specified as with psychotic behavior documented in this encounter Results * TSH (02/23/2016 1:21 PM EDT) Thyroid Stimulating Hormone 2.63 0.27 - 4.20 mcIU/mL [facility] Blood specimen (specimen) 02/23/2016 1:21 PM EDT 02/23/2016 1:26 PM EDT Narrative Resulting Agency Comment Spec In Lab Laura Pickering MD CHEMISTRY ORDERABLES Performing Organization Address [facility] Co de Phone Number [facility] [place] [address] * [place] level (02/23/2016 1:21 PM EDT) [place] 0.53 mmol/L [facility] Comment: Therapeutic level for bipolar depression: 0.60-1.20 mmol/L Action Level: ?? Acute toxicity: ?>4.00 mmol/L ?? Chronic toxicity: ??>1.50 mmol/L Values greater than or equal to the action level necessitate clinical intervention. ??Values less than this level may necessitate intervention based on clinical condition of the patient. Ref: ??Goldfrank? s Toxicologic Emergencies 6th ed 1997; p. 967 Blood specimen (specimen) 02/23/2016 1:21 PM EDT 02/23/2016 1:26 PM EDT Narrative Resulting Agency Comment Spec In Lab Laura Pickering MD CHEMISTRY ORDERABLES Performing Organization Address [facility] Co de Phone Number [facility] [place] [address] * Creatinine (02/23/2016 1:21 PM EDT) Creatinine 1.20 0.80 - 1.50 mg/dL [facility] Comment: Please note that the pediatric reference intervals supplied above were not validated at [facility]. Results from pediatric patients should be interpreted [...] the following links into your internet browser. [email or web address] [email or web address] [email or web address] [email or web address] Blood specimen (specimen) 02/23/2016 1:21 PM EDT 02/23/2016 1:26 PM EDT Narrative Resulting Agency Comment Spec In Lab Laura Pickering MD CHEMISTRY ORDERABLES Performing Organization Address City/[facility]/ZIP Co de Phone Number [facility] [place] [address] * Calcium (02/23/2016 1:21 PM EDT) Calcium 10.2 8.5 - 10.5 mg/dL [facility] Blood specimen (specimen) 02/23/2016 1:21 PM EDT 02/23/2016 1:26 PM EDT Narrative Resulting Agency Comment Spec In Lab Laura Pickering MD CHEMISTRY ORDERABLES Performing Organization Address City/[facility] Co de Phone Number [facility] [place] [address] documented in this encounter Visit Diagnoses Diagnosis Bipolar I disorder, most recent episode (or current) depressed, severe, specified as with psychotic behavior documented in this encounter Care Teams Elevator Technician Relationship Specialty Start Date End Date Tito Fisher MD [address] [place] [address] PCP - General Family Medicine 12/09/15 06/27/16 documented as of this encounter
--- OUTSIDE RECORDS SUMMARY | 2024-06-21 15:32 | XMS_ITS | Encounter Summary ---
Author Organization [facility] Address [address] [place] [address] Care Team Providers Care Dry Pan Charger Name Role Phone Laura Ho MD Primary Care Provider Encounter Details Date Type Department Care Team (Late st Contact Info) Description 04/17/2024 Specialty Pharmacy [facility] [address] [place], [place] [id number] Clara Carpenter [facility] Social History Tobacco Use Types Packs/Day Years [...] 12/25/2019 14:09 EDT documented in this encounter Progress Notes * Blanca Perales, [facility] - 04/17/2024 1644 EDT Harvey Espinosa is a 44 y.o. male with OUD who was prescribed Brixadi, which was filled by [facility]. This patient will be discharged from [facility] services because medication therapy was discontinued. Thank you for allowing us to care for this patient. Blanca Perales, PharmD, [facility] Pharmacist Ambulatory Clinician 04/24/2024 documented in this encounter Plan of Treatment Not on file documented as of this encounter Visit Diagnoses Not on filedocumented in this encounter Discontinued Medications Medication Sig Discontinue Reason Start Date End Da te buprenorphine (BRIXADI) 96 mg/0.27 mL solution, extended rel syringe Inject 96 mg into the skin every 28 days. Daily Max: 96 mg 04/24/2024 documented as of this encounter Care Teams Dry Pan Charger Relationship Specialty Start Date End Date Laura Ho MD [address] [place] [phone] PCP - General 12/25/19 documented as of this encounter
--- OUTSIDE RECORDS SUMMARY | 2024-06-21 15:32 | XMS_ITS | Encounter Summary ---
Author Organization [facility] [place] [address] Care Team Providers Care Chief Station Engineer Name Role Phone Laura Ho MD Primary Care Provider [phone] Encounter Details Date Type Department Care Team (Latest Contact Info) Description 12/08/2018 Transcribe [place] [address] Laura Ho MD [address] [place] [address] Screening for lipoid disorders; Encounter for long-term (current) use of other medications Social History Tobacco Use Types Packs/Day Years [...] Lab Use Only, Fax Request Lab Routine Screening for lipoid disorders Encounter for long-term (current) use of other medications Expected: 12/08/2018 (Approximate), Expires: 12/09/2019 documented as of this encounter Results * (ABNORMAL) Comprehensive metabolic panel (non-fasting) (12/11/2018 10:30 AM EDT) Glucose 80 65 - 199 mg/dL [facility] Comment:Diabetes: >=200 mg/d L plus symptoms Blood Urea Nitrogen 9(L) 10 - 20 mg/dL [facility] Creatinine 1.11 0.80 - 1.50 mg/dL [facility] Sodium 137 135 - 145 mmol/L [facility] Potassium 4.1 3.5 - 5.0 mmol/L [facility] Comment: Please note: ??Patients with WBC >100,000 may have falsely elevated Potassium levels. ??For accurate Potassium quantification in these patients send serum separator tube (gold top) for subsequent determinations. ??Contact the Clinical Chemistry Laboratory if there are any questions. Chloride 99 98 - 107 mmol/L [facility] Carbon Dioxide 26 22 - 31 mmol/L [facility] Anion Gap 12 5 - 15 mmol/L [facility] Calcium 10.3 8.5 - 10.5 mg/dL [facility] Protein, Total 8.2(H) 6.1 - 8.0 gm/dL [facility] Albumin 4.8 3.2 - 5.2 gm/dL [facility] Aspartate Aminotransferase 60(H) 0 - 39 unit/L [facility] Alanine Aminotransferase 83(H) 0 - 55 unit/L [facility] Alkaline Phosphatase 93 40 - 120 unit/L [facility] Bilirubin, Total 0.5 0.2 - 1.3 mg/dL [facility] Est Glomerular Filtration Rate 83 >=60 mL/min/1. 73 m?? [facility] Comment: The eGFR was calculated using the CKD-EPI equation. As with all creatinine based estimates of kidney function, eGFR values calculated with the CKD-EPI equation are not accurate in patients with acute kidney failure, extremes of body mass or the acutely ill. [email or web address]/[facility] TULSAnkf eGFR 96 >=60 mL/min/1. 73 m?? [facility] Comment: The eGFR was calculated using the CKD-EPI equation. As with all creatinine based estimates of kidney function, eGFR values calculated with the CKD-EPI equation are not accurate in patients with acute kidney failure, extremes of body mass or the acutely ill. [email or web address]/[facility] TULSAnkf Blood specimen (specimen) 12/11/2018 10:30 AM EDT 12/11/2018 10:36 AM EDT Narrative Resulting Agency Comment Spec In Lab Laura Ho MD CHEMISTRY ORDERABLES Performing Organization Address [facility] Co de Phone Number [facility] [place] [address] * [place] level (12/11/2018 10:30 AM EDT) [place] 0.85 <=1.20 mmol/L [facility] Comment: Therapeutic level for bipolar depression: 0.60-1.20 mmol/L Action Level: ?? Acute toxicity: ?>4.00 mmol/L ?? Chronic toxicity: ??>1.50 mmol/L Values greater than or equal to the action level necessitate clinical intervention. ??Values less than this level may necessitate intervention based on clinical condition of the patient. Ref: ??Goldfrank? s Toxicologic Emergencies 6th ed 1998; p. 967 Blood specimen (specimen) 12/11/2018 10:30 AM EDT 12/11/2018 10:36 AM EDT Narrative Resulting Agency Comment Spec In Lab Laura Ho MD CHEMISTRY ORDERABLES Performing Organization Address [facility] Co de Phone Number [facility] [place] [address] * Hepatitis C RNA, quantitative, PCR (12/11/2018 10:30 AM EDT) HCV Viral Load 906,454 IU/mL [facility] HCV Viral Load Result: [id number] IU/mL Indication for Study: Hepatitis C Infection Analysis: The [employer]unez RealTime HCV assay is an in vitro reverse sample display preparer polymerase chain reaction (RT-PCR)for the quantitation of hepatitis C viral (HCV) RNA in human serum or plasma (EDTA) from HCV-infected individuals. Sample: plasma (0.7 mL minimum volume) Method: N[employer]z RealTime HCV Assay Linear Range: 12 IU/mL - 100,000,000IU/mL Note: The [employer]unez RealTime HCV Assay has been approved by the U.S. Food and Drug Administration. [facility] Comment: [VERIFIED DATE]12.19.18 Verified By:Sherice Paniagua (Electronic Signature) Blood specimen (specimen) 12/11/2018 10:30 AM EDT 12/18/2018 2:58 PM EDT Narrative Resulting Agency Comment Spec In Lab Laura Ho MD MOLECULAR ORDERABLES Performing Organization Address City/State/[facility] Co de Phone Number [facility] [place] [address] * Lipid Panel (12/11/2018 10:30 AM EDT) Cholesterol, Total 143 mg/dL [facility] Comment: Lower Risk: <200 mg/dL Average Risk: 200-239 mg/dL Higher Risk: >zy=842 mg/dL Triglyceride 127 mg/dL [facility] Comment: Average Risk/Lower Risk: <150 mg/dL Borderline High Risk: 150-199 mg/dL High Risk: 200-499 mg/dL Very High Risk: >dw=531 mg/dL HDL Cholesterol 59 mg/dL [facility] Comment: Males: ?? Higher Risk: <40 mg/dL Females: ?? HIgher Risk: <50 mg/dL LDL Cholesterol 59 mg/dL [facility] Comment: Lowest Risk: <100 mg/dL Lower Risk: 100-129 mg/dL Borderline High Risk: 130-159 mg/dL High Risk: 160-189 mg/dL Very High Risk: >mt=898 mg/dL Cholesterol/HDL Ratio 2.4 ratio [facility] Lipid Interpretation See Note [facility] Comment: Lipid management should be guided by a patient? s ASCVD risk, goals and preferences. ACC/AHA Guidelines recommend high intensity statin if clinical ASCVD or LDL greater than or equal to 190 mg/dL. http://Rambusurl.[email or web address]/YGE-UTT-Fwutlahud Adults aged 40-75 with LDL 70-189 mg/dL should have their 10 year ASCVD risk estimated with the ACC/AHA ASCVD risk steel estimator http://tools.acc.org/YWSOI-Hlze-Xpmcjvegm/ Statin should be discussed if risk greater [...] In Lab Laura Ho MD CHEMISTRY ORDERABLES [facility] [place] [address] documented in this encounter Visit Diagnoses Diagnosis Screening for lipoid disorders Encounter for long-term (current) use of other medications documented in this encounter Care Teams Chief Station Engineer Relationship Specialty Start Date End Date Laura Ho MD [address] [place] [address] PCP - General Family Medicine 06/28/16 documented as of this encounter
--- OUTSIDE RECORDS SUMMARY | 2024-06-21 15:32 | XMS_ITS | Encounter Summary ---
Author Organization Replaced By [facility] [place] [address] Care Team Providers Care Communication Clerk Name Role Phone Tito Fisher MD Primary Care Provider [phone] Encounter Details Date Type Department Care Team (Latest Contact Info) Description 02/13/2016 Transcribe [place] [address] Laura Pickering MD [address] [place], [place] [id number] Bipolar I disorder, most recent episode (or [...] as of this encounter Visit Diagnoses Diagnosis Bipolar I disorder, most recent episode (or current) depressed, severe, specified as with psychotic behavior documented in this encounter Care Teams Communication Clerk Relationship Specialty Start Date End Date Tito Fisher MD [address] [place], [place] [address] PCP - General Family Medicine 12/09/15 06/27/16 documented as of this encounter
--- OUTSIDE RECORDS SUMMARY | 2024-06-21 15:32 | XMS_ITS | Encounter Summary ---
[place] [address] Care Team Providers Care Oil Burner Mechanic Name Role Phone Laura Ho MD Primary Care Provider [phone] Encounter Details Date Type Department Care Team (Latest Contact Info) Description 01/13/2018 7:55 AM EDT Laboratory Appointment Lab [address] [place] [phone] Localized edema; Hepatitis C virus infection without [...] encounter Miscellaneous Notes * Consult Note - Columba Bolden RN - 01/13/2018 7:55 AM EDT Paged to come draw peripheral blood for labs on this patient. He is know to be a difficult stick and require ultrasound to locate viable veins. A total of 28 cc of blood required to fill the tubes for tests ordered today. Blood drawn from bilateral antecubital fossas with DSD and tape placed over the sites after blood draw finished.Patient tolerated blood draw well. documented in this encounter Plan of Treatment Not on file documented as of this encounter Procedures Procedure Name Priority Date/Time Associated Diagnosis Comments LAMOTRIGINE LVL Routine 01/13/2018 8:40 AM EDT Localized edema Hepatitis C virus infection without hepatic coma, unspecified chronicity SCAN, PERIPHERAL BLOOD Routine 8 8:40 AM EDT HEMOGRAM Routine 01/13/2018 8:40 AM EDT Localized edema Hepatitis C virus infection without hepatic coma, unspecified chronicity DIFFERENTIAL, AUTOMATED Routine 01/13/2018 8:40 AM EDT Localized edema Hepatitis C virus infection without hepatic coma, unspecified chronicity HEPATITIS C RNA, QUANTITATIVE, PCR Routine 01/13/2018 8:40 AM EDT Localized edema Hepatitis C virus infection without hepatic coma, unspecified chronicity CBC (WITH DIFF) Routine 01/13/2018 8:40 AM EDT Localized edema Hepatitis C virus infection without hepatic coma, unspecified chronicity TSH Routine 01/13/2018 8:40 AM EDT Localized edema Hepatitis C virus infection without hepatic coma, unspecified chronicity PRO-BRAIN NATRIURETIC PEPTIDE Routine 01/13/2018 8:40 AM EDT Localized edema Hepatitis C virus infection without hepatic coma, unspecified chronicity MAGNESIUM Routine 01/13/2018 8:40 AM EDT Localized edema Hepatitis C virus infection without hepatic coma, unspecified chronicity LITHIUM LEVEL Routine 01/13/2018 8:40 AM EDT Localized edema Hepatitis C virus infection without hepatic coma, unspecified chronicity COMPREHENSIVE METABOLIC PANEL Routine 01/13/2018 8:40 AM EDT Localized edema Hepatitis C virus infection without hepatic coma, unspecified chronicity documented in this encounter Results * Scan, Peripheral Blood (01/13/2018 8:40 AM EDT) Plat estimate Normal [facility] RBC Morphology Normal [facility] Platelet Clumps Present [facility] Blood specimen (specimen) 01/13/2018 8:40 AM EDT 01/13/2018 8:45 AM EDT Narrative Resulting Agency Comment Spec In Lab Karlene Campbell Ravinder OJEDA HEMATOLOGY ORDERA BLES [facility] [place] [address] * (ABNORMAL) Differential, Automated (01/13/2018 8:40 AM EDT) Neutrophil % 45.6 % [facility] Neutrophil Absolute 3.63 1.70 - 6.10 x10(3)/mc L [facility] Lymph % 37.1 % [facility] Lymphocytes Abs 3.0 0.9 - 3.2 x10(3)/mc L [facility] Monocyte % 8.1 % [facility] Monocyte Abs 0.6 0.3 - 0.9 x10(3)/mc L [facility] Eos % 8.0 % [facility] Eosinophils Abs 0.6(H) 0.0 - 0.4 x10(3)/mc L [facility] Basophil % 1.1 % [facility] Baso Absolute 0.1 0.0 - 0.1 x10(3)/mc L [facility] Immature Gran % 0.10 % [facility] Comment: Immature granulocytes(IG's)percentage and absolute count will include metamyelocytes, myelocytes, and promyelocytes. Blood smears from CBCs yielding IG's will be scanned manually for concordance. If this scan disagrees with the automated IG or if promyelocytes are noted, a manual differential will be performed. Immature Gran Absolute 0.01 0.00 - 0.04 x10(3)/mc L [facility] Blood specimen (specimen) 01/13/2018 8:40 AM EDT 01/13/2018 8:45 AM EDT Narrative Resulting Agency Comment Spec In Lab Karlene H Ravinder SALDAÑAN HEMATOLOGY ORDERA BLES Performing Organization Address City/[facility]/ZIP Co de Phone Number [facility] [place] [address] * Hemogram (01/13/2018 8:40 AM EDT) White Blood Cell 8.0 4.0 - 9.5 x10(3)/mc L [facility] Red Blood Cell 4.92 4.58 - 5.54 x10(6)/mc L [facility] Hemoglobin 15.1 13.7 - 16.5 gm/dL [facility] Hematocrit 45.8 40.5 - 48.5 % [facility] Mean Cell Volume 93.1 82.9 - 93.1 fL [facility] Mean Cell Hemoglobin 30.7 27.5 - 32.1 pg [facility] Mean Cell Hemoglobin Concentration 33.0 32.0 - 35.7 gm/dL [facility] Platelet Not Measured 145 - 357 x10(3)/mc L [facility] Comment: Platelet clumps present. Estimate appears Normal. If numerical platelet count is necessary send both a Sodium Citrate tube and an EDTA tube for future platelet count orders. RDW Standard Deviation 44.9 36.0 - 45.0 fL [facility] RDW coefficient of variation 13.1 11.4 - 13.8 % [facility] Mean Platelet Volume Not Measured 7.6 - 12.9 fL [facility] NRBC% auto 0.0 % [facility] NRBC Absolute 0.000 0.000 - 0.000 x10(3)/ L [facility] Blood specimen (specimen) 01/13/2018 8:40 AM EDT 01/13/2018 8:45 AM EDT Narrative Resulting Agency Comment Spec In Lab Karlene Castellon APRN HEMATOLOGY ORDERA BLES Performing Organization Address City/[facility]/ZIP Co de Phone Number [facility] [place] [address] * (ABNORMAL) Comprehensive metabolic panel (non-fasting) (01/13/2018 8:40 AM EDT) Glucose 116 65 - 199 mg/dL [facility] Comment:Diabetes: >=200 mg/d L plus symptoms Blood Urea Nitrogen 18 10 - 20 mg/dL [facility] Creatinine 1.27 0.80 - 1.50 mg/dL [facility] Sodium 138 135 - 145 mmol/L [facility] Potassium 3.8 3.5 - 5.0 mmol/L [facility] Comment: Please note: ??Patients with WBC >100,000 may have falsely elevated Potassium levels. ??For accurate Potassium quantification in these patients send serum separator tube (gold top) for subsequent determinations. ??Contact the Clinical Chemistry Laboratory if there are any questions. Chloride 100 98 - 107 mmol/L [facility] Carbon Dioxide 26 22 - 31 mmol/L [facility] Anion Gap 12 5 - 15 mmol/L [facility] Calcium 10.0 8.5 - 10.5 mg/dL [facility] Protein, Total 7.2 6.1 - 8.0 gm/dL [facility] Albumin 4.6 3.2 - 5.2 gm/dL [facility] Aspartate Aminotransferase 55(H) 0 - 39 unit/L [facility] Alanine Aminotransferase 84(H) 0 - 55 unit/L [facility] Alkaline Phosphatase 107 40 - 120 unit/L [facility] Bilirubin, Total 0.5 0.2 - 1.3 mg/dL [facility] Est Glomerular Filtration Rate 71 >=60 mL/min/1. 73 m?? [facility] Comment: The eGFR was calculated using the CKD-EPI equation. As with all creatinine based estimates of kidney function, eGFR values calculated with the CKD-EPI equation are not accurate in patients with acute kidney failure, extremes of body mass or the acutely ill. [email or web address] eGFR 82 >=60 mL/min/1. 73 m?? [facility] Comment: The eGFR was calculated using the CKD-EPI equation. As with all creatinine based estimates of kidney function, eGFR values calculated with the CKD-EPI equation are not accurate in patients with acute kidney failure, extremes of body mass or the acutely ill. [email or web address] Blood specimen (specimen) 01/13/2018 8:40 AM EDT 01/13/2018 8:45 AM EDT Narrative Resulting Agency Comment Spec In Lab Karlene Castellon SETTER INDUCTION HEATING EQUIPMENT CHEMISTRY ORDERAB LES Performing Organization Address City/[facility]/ZIP Co de Phone Number [facility] [place] [address] * pro-Brain Natriuretic Peptide (01/13/2018 8:40 AM EDT) NT-proBNP 30 <=125 pg/mL [facility] Blood specimen (specimen) 01/13/2018 8:40 AM EDT 01/13/2018 8:45 AM EDT Narrative Resulting Agency Comment Spec In Lab Karlene Castellon SETTER INDUCTION HEATING EQUIPMENT CHEMISTRY ORDERAB LES Performing Organization Address City/[facility] Co de Phone Number [facility] [place] [address] * Hepatitis C RNA, quantitative, PCR (01/13/2018 8:40 AM EDT) HCV Viral Load 171,046 IU/mL [facility] HCV Viral Load Result: [id number] IU/mL Indication for Study: Hepatitis C Infection Analysis: The Nunez RealTime HCV assay is an in vitro reverse multimedia programmer polymerase chain reaction (RT-PCR)for the quantitation of hepatitis C viral (HCV) RNA in human serum or plasma (EDTA) from HCV-infected individuals. Sample: plasma (0.7 mL minimum volume) Method: Nunez RealTime HCV Assay Linear Range: 12 IU/mL - 100,000,000IU/mL Note: The Nunez RealTime HCV Assay has been approved by the U.S. Food and Drug Administration. [facility] Comment: [VERIFIED DATE]01.17.18 Verified By:Harvey Anand (Electronic Signature) Blood specimen (specimen) 01/13/2018 8:40 AM EDT 01/16/2018 8:12 AM EDT Narrative Resulting Agency Comment Spec In Lab Karlene Castellon APRN MOLECULAR ORDERAB LES Performing Organization Address [facility] Co de Phone Number [facility] [place] [address] * Lamotrigine Lvl (01/13/2018 8:40 AM EDT) Pathologist [facility] Lamotrigine Lvl (NOVEMBER) 2.9 2.5 - 15.0 mcg/mL [facility] Comment: ADDITIONAL INFORMATION This test was developed and its performance characteristics determined by [facility] in a manner consistent with CLIA requirements. This test has not been cleared or approved by the U.S. Food and Drug Administration. Test Performed by: [facility] [address] [place] [id number] Blood specimen (specimen) 01/13/2018 8:40 AM EDT 01/13/2018 11:53 AM EDT Narrative Resulting Agency Comment Spec In Lab Karlene Castellon APRN LAB SEND OUT ORDE RABLES Performing Organization Address [facility] Co de Phone Number [facility] [place] [address] * TSH (01/13/2018 8:40 AM EDT) [facility] Thyroid Stimulating Hormone 3.44 0.27 - 4.20 mlU/ML [facility] Blood specimen (specimen) 01/13/2018 8:40 AM EDT 01/13/2018 8:45 AM EDT Narrative Resulting Agency Comment Spec In Lab Karlene Loyaell SETTER INDUCTION HEATING EQUIPMENT CHEMISTRY ORDERAB LES Performing Organization Address [facility] Co de Phone Number [facility] [place] [address] * Magnesium (01/13/2018 8:40 AM EDT) Magnesium 0.96 0.69 - 1.07 mmol/L [facility] Blood specimen (specimen) 01/13/2018 8:40 AM EDT 01/13/2018 8:45 AM EDT Narrative Resulting Agency Comment Spec In Lab Karlene Castellon SETTER INDUCTION HEATING EQUIPMENT CHEMISTRY ORDERAB LES Performing Organization Address [facility] de Phone Number [facility] [place] [address] * [place] level (01/13/2018 8:40 AM EDT) [place] 1.17 <=1.20 mmol/L [facility] Comment: Therapeutic level for bipolar depression: 0.60-1.20 mmol/L Action Level: ?? Acute toxicity: ?>4.00 mmol/L ?? Chronic toxicity: ??>1.50 mmol/L Values greater than or equal to the action level necessitate clinical intervention. ??Values less than this level may necessitate intervention based on clinical condition of the patient. Ref: ??Goldfrank? s Toxicologic Emergencies 6th ed 1998; p. 967 Blood specimen (specimen) 01/13/2018 8:40 AM EDT 01/13/2018 8:45 AM EDT Narrative Resulting Agency Comment Spec In Lab Karlene Loyaell SETTER INDUCTION HEATING EQUIPMENT CHEMISTRY ORDERAB LES Performing Organization Address [facility] Co de Phone Number [facility] [place] [address] documented in this encounter Visit Diagnoses Diagnosis Localized edema Edema Hepatitis C virus infection without hepatic coma, unspecified chronicity documented in this encounter Care Teams Oil Burner Mechanic Relationship Specialty Start Date End Date Vic, Laura, MD [address] [place] [address] PCP - General Family Medicine 06/28/16 documented as of this encounter
--- OUTSIDE RECORDS SUMMARY | 2024-06-21 15:32 | XMS_ITS | Encounter Summary ---
Author Organization [facility] Address [address] [place] [address] Care Team Providers Care Underwear Welter Name Role Phone Laura Ho MD Primary Care Provider [phone] Encounter Details Date Type Department Care Team (Latest Contact Info) Description 02/06/2024 Specialty Pharmacy [facility] [address] [place], [place] [id number] Clara Carpenter RPH Shipping Modification for Addiction Medicine, Refill Coordination Outreach for Addiction Medicine Social [...] on filedocumented in this encounter Care Teams Underwear Welter Relationship Specialty Start Date End Date Laura Ho MD [address] [place] [id number] PCP - General 12/25/19 documented as of this encounter
--- OUTSIDE RECORDS SUMMARY | 2024-06-21 15:32 | XMS_ITS | Encounter Summary ---
Author Organization [place] [address] Care Team Providers Care Field Sales Specialist Name Role Phone Tito Fisher MD Primary Care Provider [phone] Encounter Details Date Type Department Care Team (Latest Contact Info) Description 03/08/2016 11:35 AM EDT Laboratory Appointment Lab [address] [place] [phone] Bipolar I disorder, most recent episode (or [...] Priority Date/Time Associated Diagnosis Comments CREATININE Routine 03/08/2016 11:57 AM EDT Bipolar I disorder, most recent episode (or current) depressed, severe, specified as with psychotic behavior TSH Routine 03/08/2016 11:57 AM EDT Bipolar I disorder, most recent episode (or current) depressed, severe, specified as with psychotic behavior CALCIUM Routine 03/08/2016 11:57 AM EDT Bipolar I disorder, most recent episode (or current) depressed, severe, specified as with psychotic behavior LITHIUM LEVEL Routine 03/08/2016 11:57 AM EDT Bipolar I disorder, most recent episode (or current) depressed, severe, specified as with psychotic behavior documented in this encounter Results * (ABNORMAL) TSH (03/08/2016 11:57 AM EDT) Thyroid Stimulating Hormone 4.75(H) 0.27 - 4.20 mcIU/mL [facility] Blood specimen (specimen) 03/08/2016 11:57 AM EDT 03/08/2016 12:04 PM EDT Narrative Resulting Agency Comment Spec In Lab Laura Pickering MD CHEMISTRY ORDERABLES Performing Organization Address [facility] Co de Phone Number [facility] [place] [address] * [place] level (03/08/2016 11:57 AM EDT) [place] 0.96 mmol/L [facility] Comment: Therapeutic level for bipolar depression: 0.60-1.20 mmol/L Action Level: ?? Acute toxicity: ?>4.00 mmol/L ?? Chronic toxicity: ??>1.50 mmol/L Values greater than or equal to the action level necessitate clinical intervention. ??Values less than this level may necessitate intervention based on clinical condition of the patient. Ref: ??Goldnathen? s Toxicologic Emergencies 6th ed 1997; p. 967 Blood specimen (specimen) 03/08/2016 11:57 AM EDT 03/08/2016 12:04 PM EDT Narrative Resulting Agency Comment Spec In Lab Laura Pickering MD CHEMISTRY ORDERABLES Performing Organization Address [facility] Co de Phone Number [facility] [place] [address] * Creatinine (03/08/2016 11:57 AM EDT) Creatinine 1.28 0.80 - 1.50 mg/dL [facility] Comment: Please note that the pediatric reference intervals supplied above were not validated at [facility]. Results from pediatric patients should be interpreted in conjunction to the patient's age, height and muscle mass. Est Glomerular Filtration Rate >60 >=60 [facility] Comment: This estimated GFR (eGFR) [...] the following links into your internet browser. [email or web address] Blood specimen (specimen) 03/08/2016 11:57 AM EDT 03/08/2016 12:04 PM EDT Narrative Resulting Agency Comment Spec In Lab Laura Pickering MD CHEMISTRY ORDERABLES Performing Organization Address City/[facility] Co de Phone Number [facility] [place] [address] * Calcium (03/08/2016 11:57 AM EDT) Calcium 9.4 8.5 - 10.5 mg/dL [facility] Blood specimen (specimen) 03/08/2016 11:57 AM EDT 03/08/2016 12:04 PM EDT Narrative Resulting Agency Comment Spec In Lab Laura Pickering MD CHEMISTRY ORDERABLES Performing Organization Address City/[facility] Co de Phone Number [facility] [place] [address] documented in this encounter Visit Diagnoses Diagnosis Bipolar I disorder, most recent episode (or current) depressed, severe, specified as with psychotic behavior documented in this encounter Care Teams Field Sales Specialist Relationship Specialty Start Date End Date Tito Fisher MD [address] [place] [address] PCP - General Family Medicine 12/09/15 06/27/16 documented as of this encounter
--- OUTSIDE RECORDS SUMMARY | 2024-06-21 15:32 | XMS_ITS | Encounter Summary ---
Author Organization [facility] [place] [address] Care Team Providers Care Cloth Beamer Name Role Phone Tito Fisher MD Primary Care Provider [phone] Encounter Details Date Type Department Care Team (Late st Contact Info) Description 01/23/2016 Transcribe [place] [phone] Raulito Posada MD [address] [place], [place] [phone] Social History Tobacco Use Types Packs/Day Years [...] on filedocumented in this encounter Care Teams Cloth Beamer Relationship Specialty Start Date End Date Tito Fisher MD [address] [place] [address] PCP - General Family Medicine 12/09/15 06/27/16 documented as of this encounter
--- OUTSIDE RECORDS SUMMARY | 2024-06-21 15:32 | XMS_ITS | Clinical Summary ---
Author Organization [facility] Address [address] [place] [address] Care Team Providers Care Certified Ophthalmic Medical Technician Name Role Phone Laura Ho MD Primary Care Provider [phone] Allergies Active Allergy Reactions Criticality Noted Date [...] Date Diagnosed Date Opioid use disorder 10/20/2023 Encounters Date Type Department Care Team Description 04/17/2024 Specialty Pharmacy [facility] [address] [place] [address] Clara Carpenter RPH 04/03/2024 Specialty Pharmacy [facility] [address] [place], [place] [address] Clara Carpenter RPH Refill Coordination Outreach for Addiction Medicine from Last 3 Months Medical History Medical History Date Comments Bipolar affect, depressed (HCC-CMS) Schizo affective schizophrenia (HCC-CMS) Schizophrenia, schizoaffective (HCC-CMS) Paget's disease of the bone Family History Relation Status Comments Father Other doesn't know Mother Alive Social History Tobacco Use Types [...] on file Sexual Orientation Not on file Obstetrics History Last Filed Vital Signs Vital Sign Reading Time Taken Comments Blood Pressure 108/52 12/25/2019 1415 EDT Pulse 68 12/25/2019 1415 EDT Temperature - - Respiratory Rate 20 12/25/2019 1415 EDT Oxygen Saturation - - Inhaled Oxygen Concentration - - Weight - - Height 185.4 cm (6' 1) 12/25/2019 1415 EDT Body Mass Index - - Plan of Treatment Health Maintenance Due Date Last Done Comments Pneumococcal Immunization (1 of 2 - PCV) 02/25/1984 Hepatitis B Vaccine (1 of 3 - 19+ 3-dose series) 02/24 COVID-19 Vaccine (2023- season) 2024 Hepatitis C Screen Completed 09/04/2019 Procedures Procedure Name Priority Date/Time Associated Diagnosis Comments HCV RNA DETECT QUANT Routine 09/04/2019 15:57 EST from Last 3 Months or Most Recently Relevant to Health Maintenance Results * HCV RNA DETECT QUANT (09/04/2019 15:57 EST) HCV RNA Quantitative Undetected Undetected IU/mL 09/05/2019 22:50 EST [facility] Comment: Result in log IU/mL is Undetected. ADDITIONAL INFORMATION The quantification range of this assay is 15 to 100,000,000 IU/mL (1.18 log to 8.00 log IU/mL). Testing was performed using the elke HCV test ([employer] with the elke 6800 System. Test Performed by: [facility] [address] [place] [address] Vacuum Cleaner Mechanic: Jorge Luis Andre M.D. Ph.D.; IA# [id number] 09/04/2019 15:5 7 EST 09/04/2019 15:57 EST Narrative [facility] - 09/05/2019 22:50 EST Does PT Have a Latex Allergy? NO us Arian Charles MD CHEMISTRY & BLOOD GAS ORDERAB LES Final Result [facility] from Last 3 Months or Most Recently Relevant to Health Maintenance [place] Care Teams Certified Ophthalmic Medical Technician Relationship Specialty Start Date End Date Laura Ho MD [address] [place] [address] PCP - General 12/25/19
--- OUTSIDE RECORDS SUMMARY | 2024-06-21 15:32 | XMS_ITS | Encounter Summary ---
Author Organization [facility] Address [facility] [place] [address] Care Team Providers Care Hand Fretted Instrument Maker Name Role Phone Tiot Fisher MD Primary Care Provider [phone] Encounter Details Date Type Department Care Team (Late st Contact Info) Description 01/14/2016 Telephone [place] [address] Crystal Rosales APRN [facility] [place] [address] Social History Tobacco Use Types Packs/Day Years [...] Telephone Encounter - Crystal Rosales APRN - 01/14/2016 10:28 AM EDT Mr. Espinosa returned a call to our office today. I informed him that he had a positive Hep C screen. I have encouraged him to make an appointment with his PCP. He reports that he will do so. documented in this encounter Plan of Treatment Not on file documented as of this encounter Visit Diagnoses Not on filedocumented in this encounter Care Teams Hand Fretted Instrument Maker Relationship Specialty Start Date End Date Tito Fisher MD [address] [place] [address] PCP - General Family Medicine 12/09/15 06/27/16 documented as of this encounter
--- OUTSIDE RECORDS SUMMARY | 2024-06-21 15:32 | XMS_ITS | Encounter Summary ---
Author Organization [facility] Address [facility] [address] [place] [address] Care Team Providers Care Supervisor Cigar Processing Name Role Phone Laura Ho MD Primary Care Provider [phone] Reason for Visit * Reason Comments Cellulitis right leg back of kn ee, IV drug use Encounter Details Date Type Department Care Team (Late st Contact Info) Description 01/17/2017 4:02 PM EDT - 01/17/2017 6:28 PM EDT Emergency [place] [address] Warren Callahan MD [facility] [place] [address] Cellulitis of leg, right; Abscess of right leg Discharge Disposition: Home Social History Tobacco Use [...] Sign Reading Time Taken Comments Blood Pressure 124/78 01/17/2017 6:26 PM EDT Pulse 71 01/17/2017 6:26 PM EDT Temperature 37.2 ??C (99 ??F) 01/17/2017 6:26 PM EDT Respiratory Rate 18 01/17/2017 6:26 PM EDT Oxygen Saturation 97% 01/17/2017 6:26 PM EDT Inhaled Oxygen Concentration - - Weight - - Height - - Body Mass Index - - documented in this encounter Discharge Instructions * Discharge Instructions* Carlton Perea - 01/17/2017 6:16 PM EDT Images from the original note were not included. [facility] Skin Abscess: Care Instructions Your Care Instructions A skin abscess is a bacterial infection that forms a pocket of pus. A boil is a kind of skin abscess. The doctor may have cut an opening in the abscess so that the pus can drain out. You may have gauze in the cut so that the abscess will stay open and keep draining. You may need antibiotics. You will need to follow up with your doctor to make sure the infection has gone away. The doctor has checked you carefully, but problems can develop later. If you notice any problems ornew symptoms, get medical treatment right away. Follow-up care is a patrick part of your treatment and safety. Be sure to make and go to all appointments, and call your doctor if you are having problems. It's also a good idea to know your test resultsand keep a list of the medicines you take. How can you care for yourself at home? ?? Apply warm and dry compresses, a heating pad set on low, or a hot water bottle 3 or 4 times a day for pain. Keep a cloth between the heat source and your skin. ?? If your doctor prescribed antibiotics, take them as directed. Do not stop taking them just because you feel better. You need to take the full course of antibiotics. ?? Take pain medicines exactly as directed. ?? If the doctor gave you a prescription medicine for pain, take it as prescribed. ?? If you are not taking a prescription pain medicine, ask your doctor if you can take an cypo-tcc-lcfwaxa medicine. ?? Keep your bandage clean and dry. Change the bandage whenever it gets wet or dirty, or at least one time a day. ?? If the abscess was packed with gauze: ?? Keep follow-up appointments to have the gauze changed or removed. If the doctor instructed you to remove the gauze, gently pull out all of the gauze when your doctor tells you to. ?? After the gauze is removed, soak the area in warm water for 15 to 20 minutes 2 times a day, until the wound closes. When should you call for help? Call your doctor now or seek immediate medical care if: ?? You have signs of worsening infection, such as: ?? Increased pain, swelling, warmth, or redness. ?? Red streaks leading from the infected skin. ?? Pus draining from the wound. ?? A fever. Watch closely for changes in your health, and be sure to contact your doctor if: ?? You do not get better as expected. Where can you learn more? Visit our [employer] information library at [email or web address] You can also view health information on [employer], your personal patient account. Log in or sign up today. Enter D633 in the search box to learn more about Skin Abscess: Care Instructions. ?? [id number] [employer]. Care instructions adapted under license by [facility]. This care instruction is for use with your licensed healthcare professional. If you have questions about a medical condition or this instruction, always ask your healthcare professional. [employer] disclaims any warranty or liability for your use of this information. Content Version: 11.0.307747; Current as of: August 15, 2015 [facility] Cellulitis: Care Instructions Your Care Instructions Cellulitis is a skin infection. It often occurs after a break in the skin from a scrape, cut, bite,or puncture, or after a rash. The doctor has checked you carefully, but problems can develop later. If you notice any problems ornew symptoms, get medical treatment right away. Follow-up care is a patrick part of your treatment and safety. Be sure to make and go to all appointments, and call your doctor if you are having problems. It's also a good idea to know your test resultsand keep a list of the medicines you take. How can you care for yourself at home? ?? Take your antibiotics as directed. Do not stop taking them just because you feel better. You need to take the full course of antibiotics. ?? Prop up the infected area on pillows to reduce pain and swelling. Try to keep the area above thelevel of your heart as often as you can. ?? If your doctor told you how to care for your wound, follow your doctor's instructions. If you did not get instructions, follow this general advice: ?? Wash the wound with clean water 2 times a day. Don't use hydrogen peroxide or alcohol, which canslow healing. ?? You may cover the wound with a thin layer of petroleum jelly, such as Vaseline, and a nonstick bandage. ?? Apply more petroleum jelly and replace the bandage as needed. ?? Be safe with medicines. Take pain medicines exactly as directed. ?? If the doctor gave you a prescription medicine for pain, take it as prescribed. ?? If you are not taking a prescription pain medicine, ask your doctor if you can take an uiml-jkt-gibxpbe medicine. To prevent cellulitis in the future ?? Try to prevent cuts, scrapes, or other injuries to your skin. Cellulitis most often occurs wherethere is a break in the skin. ?? If you get a scrape, cut, mild burn, or bite, wash the wound with clean water as soon as you abran help avoid infection. Don't use hydrogen peroxide or alcohol, which can slow healing. ?? If you have swelling in your legs (edema), support stockings and good skin care may help preventleg sores and cellulitis. ?? Take care of your feet, especially if you have diabetes or other conditions that increase the risk of infection. Wear shoes and socks. Do not go barefoot. If you have athlete's foot or other skin problems on your feet, talk to your doctor about how to treat them. When should you call for help? Call your doctor now or seek immediate medical care if: ?? You have signs that your infection is getting worse, such as: ?? Increased pain, swelling, warmth, or redness. ?? Red streaks leading from the area. ?? Pus draining from the area. ?? A fever. ?? You get a rash. Watch closely for changes in your health, and be sure to contact your doctor if: ?? You are not getting better after 1 day (24 hours). ?? You do not get better as expected. Where can you learn more? Visit our health information library at [email or web address] You can also view health information on [employer], your personal patient account. Log in or sign up today. Enter X309 in the search box to learn more about Cellulitis: Care Instructions. ?? [phone] [employer]. Care instructions adapted under license by [facility]. This care instruction is for use with your licensed healthcare professional. If you have questions about a medical condition or this instruction, always ask your healthcare professional. [employer] disclaims any warranty or liability for your use of this information. Content Version: 11.0.773056; Current as of: August 15, 2015 documented in this encounter Medications at Time of Discharge Medication Sig Dispensed Refills Start Date End Date lithium 300 mg Capsule Take 1,050 mg by mouth nightly. buprenorphine-nalOXone (SUBOXONE) 8-[address] 16 mg under the tongue daily. Dexmethylphenidate 30 mg Capsule, Multiphasic Rel.50-50 Take 30 mg by mouth daily. lamoTRIgine (LAMICTAL) 25 mg Tablet Take 125 mg by mouth nightly. sulfamethoxazole-trimeth oprim (BACTRIM DS) 800-160 mg Tablet Take 1 tablet by mouth 2 times daily for 7 days. 14 tablet 01/17/2017 01/24/2017 cloNIDine (CATAPRES) 0.1 mg Tablet Take 0.1 mg by mouth nightly. 08/05/2020 documented as of this encounter ED Notes * Carlton Perea - 01/17/2017 4:56 PM EDT Harvey Espinosa is an 36 y.o. male who presents to the ED with: Chief Complaint Patient presents with ??? Cellulitis right leg back of knee, IV drug use I saw this patient 01/17/2017 at ~ 4:56 PM HPI Harvey Espinosa is a 36 y.o. male with a PMH significant for HCV, genital herpes, and IVDU, who presents to the Emergency Department with concern for skin infection on the back of his right leg. He reports that he injected methylphenidate 4 days ago. Soon after, developed red, painful, swollen areaover the medial/posterior aspect of his right knee. Area has grown. Denies nausea, vomiting, fever,or chills. Denies vision change, headache, or stiff neck. Denies bowel or bladder changes. No change in appetite or PO intake. CSM intact in distal extremity. Review of Systems: Review of Systems Constitutional: Negative for activity change, appetite change, chills and fever. HENT: Negative for congestion, ear pain, hearing loss and tinnitus. Eyes: Negative for pain and visual disturbance. Respiratory: Negative for chest tightness, shortness of breath and wheezing. Cardiovascular: Negative for chest pain. Gastrointestinal: Negative for abdominal distention, abdominal pain, constipation, diarrhea, nauseaand vomiting. Endocrine: Negative for cold intolerance and heat intolerance. Genitourinary: Negative for difficulty urinating and hematuria. Musculoskeletal: Negative for arthralgias and myalgias. Skin: Negative for pallor and rash. Neurological: Negative for dizziness, weakness, light-headedness, numbness and headaches. Psychiatric/Behavioral: Negative for agitation. Patient Vitals for the past 8 hrs: BP Temp Temp src Pulse Resp SpO2 01/17/17 1525 124/79 37.4 ??C (99.3 ??F) Oral 76 16 99 % I have reviewed the vital signs, which demonstrates normal values for a 36 year old man Physical Exam: Physical Exam Constitutional: He is oriented to person, place, and time. He appears well- developed and well-nourished. No distress. HENT: Head: Normocephalic and atraumatic. Right Ear: External ear normal. Left Ear: External ear normal. Nose: Nose normal. Mouth/Throat: Oropharynx is clear and moist. No oropharyngeal exudate. Eyes: Conjunctivae and EOM are normal. Pupils are equal, round, and reactive to light. Right eye exhibits no discharge. Left eye exhibits no discharge. No scleral icterus. Neck: Normal range of motion. Neck supple. No tracheal deviation present. Cardiovascular: Normal rate, regular rhythm, normal heart sounds and intact distal pulses. Exam reveals no gallop and no friction rub. No murmur heard. Pulmonary/Chest: Effort normal and breath sounds normal. No respiratory distress. He has no wheezes. He has no rales. He exhibits no tenderness. Abdominal: Soft. Bowel sounds are normal. He exhibits no distension and no mass. There is no tenderness. There is no rebound and no guarding. Musculoskeletal: Normal range of motion. He exhibits no edema, tenderness or deformity. Neurological: He is alert and oriented to person, place, and time. No cranial nerve deficit. Coordination normal. Skin: Skin is warm and dry. No rash noted. He is not diaphoretic. No erythema. No pallor. Psychiatric: He has a normal mood and affect. His behavior is normal. ED Course: - Patient was evaluated and discussed with Dr. Welsh - Medications, allergies, past medical history, surgical history, family history, and social history were reviewed Bedside Ultrasound During ED Visit: Point of care emergency department limited soft tissue ultrasound: Indication: Soft tissue infection with concern for presence of drainable abscess. Procedure in detail: Using the Transducers: Linear transducer, the affected area was interrogated in two orthogonal planes and revealed Abscess vs Cellulitis: subcutaneous discrete fluid collection and cobblestoning with edema. Abscess measurements: 2 cm by 3 cm by 1 cm Other findings or limitations: None Taking note of depth and site of maximal collection this area was marked for procedural guidance. Impression: Point of care limited soft tissue ultrasound consistent with the Presence of an abscessand Presence cellulitis. This study was supervised by an ultrasound credentialed emergency physician. These images were archived digitally and I independently interpreted the images at the bedside and agree with the documented results. ED Course: - Medications and fluid administered: none - I have reviewed lab results, which are significant for: none - I have reviewed imaging, which is significant for: abscess and cellulitis as documented above on US - I have reviewed EKG results, which is significant for: none - I performed the following procedure(s): I&D drainage of abscess Assessment and Plan: MDM: 36 y.o. male who presents for right leg pain, swelling, redness in the setting of recent IVDU. The differential diagnosis includes but is not limited to abscess vs cellulitis, necrotizing soft tissue infection, joint infection, or systemic infection. Based on ultrasound findings significant for a fluid pocket with surrounding cobblestoning, the diagnosis of abscess with surrounding cellulitis was made. I & D of the abscess was performed, wound was packed with a sterile wick, and patient was given prescription for Bactrim. Low concern for NSTI based on non tender outside of the confined area of redness, no fever, chills, nausea, or vomiting. These factors also make systemic infection less likely. Patient denies headache, neck pain, vision change, back pain. No murmur noted on exam. In sum, less concern for endocarditis, osteomyelitis, or meningitis. Patient able to tolerate weight bearing, and area of induration doesn't extend over the joint, as well joint lines are nontender,making joint infection less likely. The abscess was drained uneventfully, producing several cc's of purulent discharge. Patient was given prescription for Bactrim for 7 days. Return precautions were verbally discussed with the patient. The patient expressed understanding that they could come back to the ED at any time and agreed to the follow-up plan. Plan: - Discharge home - Follow up with PCP in three days for wound check and packing removal - Return precautions were discussed with the pt Carlton Perea MD Resident 01/17/17 2246 Associated attestation - Warren Callahan MD - 01/18/2017 12:30 PM EDT Images from the original note were not included. ED ATTENDING ATTESTATION NOTE The patient was [...] and plan as described in the resident's note. Briefly, 36 y.o. male with current IVDA who present with cellulitis and abscess of posterior medialright knee. He is well appearing and no evidence of systemic illness. Wound was I&D'd. We prescribed bactrim for cellulitis given a reported history of MRSA on a prior hand wound. I was present in the room and assisted with the incision and drainage procedure. Procedure Note Procedure: incision and drainage Anatomic Location: right, posterior medial knee Pre-op diagnosis: abscess Post-op diagnosis: abscess Consent: Verbal assent from patient after discussion of risks and benefits. Physicians: Carlton Palafox Anesthesia: Local with Lidocaine 1% with epi, 4mL total Description: After anesthesia was provided, the site was prepped with betadine. After completely drying the abscess was incised with an 11blade, ~1.5cm incision. There was a moderate amount of puss from the wound. The loculations were broken up circumferentially with a pj clamp and the wound wasirrigated with an 18ga angiocath and normal saline. A cotton packing and wick was placed in the wound to assure it did jamal close. The wound was dressed. Specimens: abscess culture Complications: none apparent EBL: minimal I was present for and supervised the entire procedure. I reviewed the images and agree with the ultrasound interpretation by Dr. Perea. * Fe Alcantara RN - 01/17/2017 4:29 PM EDT Posterior R knee with area of erythema, edema and tenderness. CSM's intact distal to area. Area outlined. 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 Pt injected into back of right knee 4 days ago. Now red swollen with red lines tracking proximally to wound. documented in this encounter Plan of Treatment Not on file documented as of this encounter Procedures Procedure Name Priority Date/Time Associated Diagnosis Comments ABSCESS/WOUND ASPIRATE CULTURE STAT 01/17/2017 6:00 PM EDT documented in this encounter Results * (ABNORMAL) Abscess/Wound Aspirate Culture Abscess; Leg, Right (01/17/2017 6:00 PM EDT) Abscess/Wound Aspirate Culture Moderate Staphylococcus aureus Moderate normal cutaneous alexis (A) [facility] Gram Stain Many White Blood Cells seen Rare Gram Positive Cocci seen (A) [facility] Organism Staphylococcus aureus(A) [facility] Organism Gram Positive Cocci(A) [facility] Swab (specimen) STRUCTURE OF RIGHT LOWER LIMB / Unknown 01/17/2017 6:00 PM EDT 01/17/2017 7:00 PM EDT Comment:ABSCESS Narrative Resulting Agency Comment Spec In Lab Organism Antibiotic Method Susceptibility Staphylococcus aureus Amoxicillin + Clavulanate MICROS CAN METHOD Sensitive Staphylococcus aureus Ampicillin MICROSCAN METHOD Resistant Staphylococcus aureus Ampicillin + Sulbactam MICROSCAN METHOD Sensitive Staphylococcus aureus Cefazolin MICROSCAN METHOD Sensitive Staphylococcus aureus Ceftriaxone MICROSCAN METHOD Sensitive Staphylococcus aureus Ciprofloxacin MICROSCAN METHOD Sensitive Staphylococcus aureus Clindamycin MICROSCAN METHOD Sensitive Staphylococcus aureus Erythromycin MICROSCAN METHOD Resistant Staphylococcus aureus Gentamicin MICROSCAN METHOD Sensitive Comment:Gentamicin i s not appropriate for [place]-therapy. Staphylococcus aureus Levofloxacin MICROSCAN METHOD Sensitive Staphylococcus aureus Oxacillin MICROSCAN METHOD Sensitive Staphylococcus aureus Penicillin MICROSCAN METHOD Resistant Comment: Penicillin resistant, Nafcillin susceptible Staphylococci are resistant to B-lactamase labile Penicillins including Ampicillin and Piperacillin, but susceptible to B-lactamase adia Penicillins (Nafcillin), B-lactamase inhibitor combinations, first and second generation Cephalosporins including Cefazolin, and to Cefepime and Meropenem. Staphylococcus aureus Tetracycline MICROSCAN METHOD Sensitive Staphylococcus aureus Trimethoprim/Sulfa MICROSCAN MET HOD Sensitive Staphylococcus aureus Vancomycin MICROSCAN METHOD Sensitive Warren Callahan MD MICROBIOLOGY - GEN ERAL ORDERABLES [place] [id number] documented in this encounter Visit Diagnoses Diagnosis Cellulitis of leg, right Cellulitis and abscess of leg, except foot Abscess of right leg Cellulitis and abscess of leg, except foot documented in this encounter Care Teams Supervisor Cigar Processing Relationship Specialty Start Date End Date Laura Ho MD [address] [place] [address] PCP - General Family Medicine 06/28/16 documented as of this encounter
--- OUTSIDE RECORDS SUMMARY | 2024-06-21 15:32 | XMS_ITS | Encounter Summary ---
Author Organization [facility] Address [facility] [address] [place] [address] Care Team Providers Care Still Tender Name Role Phone Laura Ho MD Primary Care Provider [phone] Encounter Details Date Type Department Care Team (Late st Contact Info) Description 08/15/2019 Ancillary Procedure Radiology Library at [facility], [place] [address] Gorge Edgar MD [facility] [address] [facility] [address] Social History Tobacco Use Types Packs/Day Years [...] Associated Diagnosis Comments FILM LIBRARY STORAGE ONLY MR KNEE Routine 08/15/2019 12:00 AM EST documented in this encounter Results * Film Library- Storage Only MR Knee (08/15/2019 12:00 AM EST) Narrative SUSAN - 08/30/2019 10:08 PM EST This exam is auto-finalizing. It's purpose is for storage only. Gorge Edgar MD G FILM LIBRARY ORD ERABLES [facility] [place] [place] documented in this encounter Visit Diagnoses Not on filedocumented in this encounter Care Teams Still Tender Relationship Specialty Start Date End Date Laura Ho MD [address] [place] [address] PCP - General Family Medicine 06/28/16 documented as of this encounter
--- OUTSIDE RECORDS SUMMARY | 2024-06-21 15:32 | XMS_ITS | Encounter Summary ---
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 interactive HEENT - NC/AT, MMM, no sclericterus, no conjunctival hemorrhages CV - RRR S1 S2, no m/r/g L - wheezing GI - Soft, NT, ND, NABS, no HSM Ext - no cyanosis. Left forerm IV infusing. Left hand is edematous with diffuse erythema. Right hand is edematous and erythematous though he notes he can now appose his thumb/pinky. Sensation intact to light touch. No Janeway lesions, Osler nodes, or splinter hemorrhages. Neuro - A+O as above, MA4E, otherwise grossly intact Laboratory: Recent Labs 12/09/15 1240 WBC 12.0* HGB 15.1 HCT 43.8 PLATELET 301 Recent Labs 12/09/15 1240 NA 140 K 4.5 CL 103 CO2 22 BUN 12 CREATININE 1.07 Recent Labs 12/09/15 1520 AST 27 ALT 55 ALKPHOS 62 BILITOT 0.2 BILIDIR <0.1 Recent Labs 12/09/15 1240 CALCIUM 9.3 No results found for: SPGRAVITYUA, PHUADIP, PROTEINUADIP, GLUCOSEU, KETONESUA, UROBILIUADIP, BLOODUADIP, NITRATEUA, LEUKOESTERUA, WBCUA, BILIRUBINUA Microbiology: 12/08 HIV - negative Radiology/Studies/Procedures: 12/08 Ultrasound Right Hand - Unilateral Extremity Summary No fluid collection or abscess. 12/08 XRay Right Hand - IMPRESSION Extensive soft tissue swelling over the dorsum and ulnar aspect of the right hand. Healed right fifth metacarpal neck fracture with residual angulation. No evidence for acute fracture or dislocation. No gas within the soft tissues. Assessment: Kevin Ramirez is a 35 y.o. male c/h/o self-reported bipolar disorder, long- standing active IVDA, polysubstance abuse (largely stimulants), previous skin infections from IVDA, with command hallucinations he notes cause him to self- harm and to inject drugs, now with left hand infection. Unclear depth of infection but he has improved significantly on IV antibiotic therapy alone. While I work to obtain his OSH cultures to perhaps have something by which to guide antimicrobial therapy, continue vancomycin, piperacillin-tazobactam for now. His left forearm/hand are now quite swollen and erythematous, likely due to his pIV. This should be removed and further IV access pursued. In the event aftertrying you are unable to obtain pIV access can use PO Bactrim/ PO cephalexin tonight, but IV therapy would be much preferable. Of perhaps more significance is his underlying addiction problem and reported command hallucinations. He is in great need of psychiatric and addiction medicine consultations while inpatient. Recommendations: -Psychiatry consult urgently -Continue vancomycin, piperacillin-tazobactam -Remove left forearm pIV -If unable to obtain peripheral IV access despite trying, can switch to PO Bactrim/cephalexin tonight -Will work to obtain OSH previous cultures -If febrile please send 2 sets of blood cultures -With next blood draw please send hepatitis C ab, hepatitis B surface antigen This patient was seen and discussed with ID attending Dr. Obregon. Recommendations discussed with primary treating team. X ID consult service will continue to follow patient. Do not hesitate to page us at [phone] with any further questions or concerns. ID will sign off. Please page [phone] if further consultation required. MAXIMILIANO LIN MD Fellow, Infectious Disease 12/10/2015 Pager [phone] ID Staff: I saw and examined the patient with Dr. Lin. I have reviewed the lab data and wrist x-ray. The assessment and plan above was created in discussion with me and is as documented above by the fellow. Hand cellulitis is improving with arm elevation and vancomycin. Anticipating therapy will be able to be transition to oral bactrim with oral cephalexin if continues to improve (reassess 12/10). Long discussion re health risks of IDU. Active psychiatric issues seem intertwined with ongoing drug use and suggest urgent psych eval to assess for whether pt would benefit from inpt psych stay and to assist with healthcare network pricing consultant plan for mental health and addiction. HCV pending. Tala Obregon MD * Consult Note - Kd Duvall MD - 12/10/2015 6:57 AM EDT PLASTIC SURGERY HAND CONSULT NOTE Referring: No primary care provider on file. CC: Hand Injury HPI: Kevin Ramirez is a 35 y.o. old male, HD#2, who injected methylphenidate into his right wristapproximately 1 week. The day after he noticed swelling, erythema, and pain in his right hand/wrist. he went to the the ED at an OSH yesterday and they gave him oral clinda and bactrim. His hand did not improve so he came [place] [facility] He denies numbness, tingling, and weakness of the hand. 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 No pertinent past medical history. Patient Active Problem List Diagnosis Code ??? Cellulitis of hand L03.119 PSH: No past surgical history on file. MEDS: No current facility-administered medications on file prior to encounter. No current outpatient prescriptions on file prior to encounter. ALL: No Known Allergies FH: Non-contributory SH: History Social History ??? Marital status: Spouse name: N/A ??? Number of children: N/A ??? Years of education: N/A Occupational History ??? Not on file. Social History Main Topics ??? Smoking status: Current Every Day Smoker ??? Smokeless tobacco: Not on file ??? Alcohol use: No ??? Drug use: Yes Special: IV ??? Sexual activity: Not on file Other Topics Concern ??? Not on file Social History Narrative ??? No narrative on file ROS: As per HPI EXAMINATION: Temp: [36.6 ??C (97.9 ??F)-37.1 ??C (98.8 ??F)] Heart Rate: [59-87] Resp: [14-18] BP: (91-134)/(47-68) NAD Non-labored Reg rate No CCE, moves all 4 extremities AO RIGHT HAND: Inspection/Soft Tissue: No lacerations but some scarring around radial artery proximal to wrist crease. Edema over radial aspect of hand still present but decreased compared to exam 12/08, erythema decreased, marked peripheral extension Palpation: Mild pain dorsum hand and wrist Vascular: Palpable radialpulse, good cap refill Sensation: Median/Radial/Ulnar nerves intact Motor: Radial (EPL)/Median (APB)/Ulnar(DI)/AIN (OK sign)/PIN (Thumbs up) intact ROM: Normal ROM DIP/PIP/MCP/Wrist, no scissoring, normal cascade LABS: Recent Results (from the past 24 hour(s)) Basic Metabolic Panel (non-fasting) Result Value Ref Range Glucose Lvl 108 65 - 199 mg/dL BUN 12 10 - 20 mg/dL Creatinine 1.07 0.80 - 1.50 mg/dL Sodium 140 135 - 145 mmol/L Potassium 4.5 3.5 - 5.0 mmol/L Chloride 103 98 - 107 mmol/L CO2 22 22 - 31 mmol/L Anion Gap 15 5 - 15 mmol/L Calcium 9.3 8.5 - 10.5 mg/dL Estimated GFR >60 >=60 Sedimentation rate Result Value Ref Range Sed Rate 11 0 - 15 mm/hr High Sensitivity CRP Result Value Ref Range CRP High Sens 39.6 mg/L Hemogram Result Value Ref Range WBC 12.0 (H) 4.0 - 10.0 x10(3)/mcL RBC 5.04 4.63 - 6.08 x10(6)/mcL Hemoglobin 15.1 13.7 - 17.5 gm/dL Hematocrit 43.8 40.0 - 51.0 % MCV 86.9 79.0 - 92.0 fL MCH 30.0 25.6 - 32.2 pg MCHC 34.5 32.0 - 36.5 gm/dL Platelets 301 145 - 370 x10(3)/mcL RDWSD 43.5 35.0 - 46.0 fL RDWCV 13.7 10.9 - 14.4 % MPV 10.6 9.0 - 12.0 fL Differential, Automated Result Value Ref Range Neutrophils % 65.9 % Neutr Abs (ANC) 7.94 (H) 1.50 - 6.30 x10(3)/mcL Lymphocytes % 21.1 % Lymphocytes Abs 2.5 1.0 - 3.6 x10(3)/mcL Monocytes % 8.2 % Monocyte Abs 1.0 0.2 - 1.0 x10(3)/mcL Eosinophils % 3.9 % Eosinophils Abs 0.5 0.0 - 0.5 x10(3)/mcL Basophils % 0.7 % Basophils Abs 0.1 0.0 - 0.2 x10(3)/mcL Immature Gran % 0.20 % Teena Gran Abs 0.03 0.00 - 0.05 x10(3)/mcL HIV Screen, 4th Generation Result Value Ref Range HIV-1/2 Ab and Ag Negative Negative Hepatic Function Panel Result Value Ref Range Total Protein 7.2 6.1 - 8.0 gm/dL Albumin 3.9 3.2 - 5.2 gm/dL AST 27 0 - 39 unit/L ALT 55 0 - 55 unit/L Alk Phos 62 40 - 120 unit/L Total Bilirubin 0.2 0.2 - 1.3 mg/dL Bili, Direct <0.1 0.0 - 0.3 mg/dL IMAGING: XR R Hand: IMPRESSION Extensive soft tissue swelling over the dorsum and ulnar aspect of the right hand. Healed right fifth metacarpal neck fracture with residual angulation. No evidence for acute fracture or dislocation. No gas within the soft tissues. Ultrasound RIGHT Hand: Impression Unilateral Extremity Summary No fluid collection or abscess. I viewed the images and agree with the above interpretation. Alison Hernandez MD Electronically Signed Final Report 12/09/2015 05:33 pm ASSESSMENT: Kevin Ramirez is a 35 y.o. y/o male s/p hand trauma after an injection of methylphenidate to the wrist now with right hand swelling/edema consistent with cellulitis. Afebrile. Ultrasound performed yesterday with no evidence of fluid collection/abscess/retained foreign body. RECOMMENDATION: 1. Observation in CDU for an additional 24 hours 2. IV abx continue, will consult ID regarding discharge abx 3. Elevate right hand for as long as patient can tolerate to reduce swelling of distal UE 4. Will continue to follow deondre RANDALL DO Attending: Seen and examined in the ED admission unit. There is some dorsal erythema and edema remaining but this has regressed from the prior makings. Subjectively the patient notes improvement. There remains some erythema. We discussed the risks of skin injecting, sharing needles, viral transmission risks as well. I advised will need to see this hand improve a bit more prior to discharge which likely could be tomorrow if he continues to improve and there is sign of abscess formation. * Consult Note - Kd Duvall MD - 12/09/2015 2:32 PM EDT PLASTIC SURGERY HAND CONSULT NOTE Referring: No primary care provider on file. CC: Hand Injury HPI: Kevin Ramirez is a 35 y.o. old male who injected methylphenidate into his right wrist 6 daysago. The day after he noticed swelling, erythema, and pain in his right hand/wrist. he went to the the ED at an OSH yesterday and they gave him oral clinda and bactrim. His hand did not improve so hecame [place] [facility] He denies numbness, tingling, and weakness of the hand. 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 There is no problem list on file for this patient. PSH: No past surgical history on file. MEDS: No current facility-administered medications on file prior to encounter. No current outpatient prescriptions on file prior to encounter. ALL: No Known Allergies FH: Non-contributory SH: History Social History ??? Marital status: Spouse name: N/A ??? Number of children: N/A ??? Years of education: N/A Occupational History ??? Not on file. Social History Main Topics ??? Smoking status: Not on file ??? Smokeless tobacco: Not on file ??? Alcohol use: Not on file ??? Drug use: Not on file ??? Sexual activity: Not on file Other Topics Concern ??? Not on file Social History Narrative ROS: As per HPI EXAMINATION: Temp: [37.1 ??C (98.8 ??F)] Heart Rate: [87] Resp: [16] BP: (134)/(57) NAD Non-labored Reg rate No CCE, moves all 4 extremities AO RIGHT HAND: Inspection/Soft Tissue: No lacerations but some scarring around radial artery proximal to wrist crease. Diffuse hand edema/erythema Palpation: Mild pain dorsum hand and wrist Vascular: Palpable radialpulse, good cap refill Sensation: Median/Radial/Ulnar nerves intact Motor: Radial (EPL)/Median (APB)/Ulnar(DI)/AIN (OK sign)/PIN (Thumbs up) intact ROM: Normal ROM DIP/PIP/MCP/Wrist, no scissoring, normal cascade LABS: Recent Results (from the past 24 hour(s)) Basic Metabolic Panel (non-fasting) Result Value Ref Range Glucose Lvl 108 65 - 199 mg/dL BUN 12 10 - 20 mg/dL Creatinine 1.07 0.80 - 1.50 mg/dL Sodium 140 135 - 145 mmol/L Potassium 4.5 3.5 - 5.0 mmol/L Chloride 103 98 - 107 mmol/L CO2 22 22 - 31 mmol/L Anion Gap 15 5 - 15 mmol/L Calcium 9.3 8.5 - 10.5 mg/dL Estimated GFR >60 >=60 High Sensitivity CRP Result Value Ref Range CRP High Sens 39.6 mg/L Hemogram Result Value Ref Range WBC 12.0 (H) 4.0 - 10.0 x10(3)/mcL RBC 5.04 4.63 - 6.08 x10(6)/mcL Hemoglobin 15.1 13.7 - 17.5 gm/dL Hematocrit 43.8 40.0 - 51.0 % MCV 86.9 79.0 - 92.0 fL MCH 30.0 25.6 - 32.2 pg MCHC 34.5 32.0 - 36.5 gm/dL Platelets 301 145 - 370 x10(3)/mcL RDWSD 43.5 35.0 - 46.0 fL RDWCV 13.7 10.9 - 14.4 % MPV 10.6 9.0 - 12.0 fL Differential, Automated Result Value Ref Range Neutrophils % 65.9 % Neutr Abs (ANC) 7.94 (H) 1.50 - 6.30 x10(3)/mcL Lymphocytes % 21.1 % Lymphocytes Abs 2.5 1.0 - 3.6 x10(3)/mcL Monocytes % 8.2 % Monocyte Abs 1.0 0.2 - 1.0 x10(3)/mcL Eosinophils % 3.9 % Eosinophils Abs 0.5 0.0 - 0.5 x10(3)/mcL Basophils % 0.7 % Basophils Abs 0.1 0.0 - 0.2 x10(3)/mcL Immature Gran % 0.20 % Teena Gran Abs 0.03 0.00 - 0.05 x10(3)/mcL IMAGING: XR R Hand: IMPRESSION Extensive soft tissue swelling over the dorsum and ulnar aspect of the right hand. Healed right fifth metacarpal neck fracture with residual angulation. No evidence for acute fracture or dislocation. No gas within the soft tissues. ASSESSMENT: Kevin Ramirez is a 35 y.o. y/o male s/p hand trauma after an injection of methylphenidate to the wrist now with right hand swelling/edema consistent with cellulitis. Afebrile. WBC 12. RECOMMENDATION: 1. Observation in CDU 2. IV abx 3. Elevate right hand 4. Ultrasound to check for fluid collections 5. Will continue to follow paitent The patient was discussed with attending, Dr. Duvall, who agrees with the above assessment and plan. Serg Hoffman MD Plastic Surgery Resident, PGY-6 Attending: discussed with Dr Hoffman and agree with plan as documented. * ED Triage - Queenie Kahn RN - 12/09/2015 11:53 AM EDT Pt has an infection right hand x 6 days related to IV drug use. Hand is very swollen, red and warm.He was eval for this @ [facility] yesterday and Rx with Clindamycin and Bactrim since. Thsy were unable to place an IV for IV ABX. Pt reports increasing redness, pain and swelling. Pt reports that though he has never taken Penicillin several people in his family have allergy to it. documented in this encounter Plan of Treatment Not on file documented as of this encounter Procedures Procedure Name Priority Date/Time Associated Diagnosis Comments VANCOMYCIN, TROUGH Timed 12/11/2015 5: 20 AM EDT US EXTREMITY RIGHT LIMITED VASCULAR STAT 12/09/2015 3:57 PM EDT HEPATITIS C RNA, QUANTITATIVE, PCR Routine 12/09/2015 3:20 PM EDT HIV SCREEN, 4TH GENERATION ([facility]P/APD/[facility]) Routine 12/09/2015 3:20 PM EDT HEPATIC FUNCTION PANEL STAT 6 3:20 PM EDT XR WRIST 3 VIEWS RIGHT STAT 6 1:09 PM EDT HEMOGRAM STAT 12/09/2015 12:40 PM EDT DIFFERENTIAL, AUTOMATED STAT 12/09/2015 12:40 PM EDT SEDIMENTATION RATE STAT 12/09/2015 12 :40 PM EDT CBC (WITH DIFF) STAT 12/09/2015 12:40 PM EDT CRP, CARDIAC RISK (HS CRP) STAT 12/09/2015 12:40 PM EDT BASIC METABOLIC PANEL STAT 12/09/2015 12:40 PM EDT documented in this encounter Results * Vancomycin, trough (12/11/2015 5:20 AM EDT) Vancomycin, Trough 5.9 mg/L M [facility] Comment: Therapeutic range for complicated infections such as bacteremia, endocarditis, osteomyelitis, meningitis, and hospital-acquired pneumonia caused by S. aureus: 15-20 mg/L Therapeutic range for other indications: 10-15 mg/L Toxic: >25 mg/L Reference: Vancomycin Therapeutic Monitoring: Review and Recommendations from the ASHP, IDSA and SIDP Task Force. ??Am J Health-Syst Pharm. 2009; 66:82-98 Blood specimen (specimen) 12/11/2015 5:20 AM EDT 12/11/2015 5:42 AM EDT Narrative Resulting Agency Comment Spec In Lab Kd Duvall MD CHEMISTRY ORDERABLES [facility] [place] [address] * US Extremity Right Limited (12/09/2015 3:57 PM EDT) Anatomical Region Laterality Modality Arm, Shoulder, Elbow, Forear m, Wrist, Hand, Hip, Thigh, Knee, Leg, Ankle, Foot Right Ultrasound 12/09/2015 3:56 PM EDT Impressions 12/09/2015 5:34 PM EDT Impression Unilateral Extremity Summary No fluid collection or abscess. I ??viewed the images and agree with the above interpretation. ?Alison Hernandez MD Electronically Signed Final Report ?? 12/09/2015 05:33 pm Narrative 12/09/2015 5:34 PM EDT Ultrasound Report ?(Signed Final 12/09/2015 05:33 pm) Patient Info ID #: ? [id number] ?: ??[birth year] (35 yrs) Name: ? KEVIN DE LA CRUZCHAY ?Visit Date: 12/09/2015 03:56 pm Performed By Performed By: ? Clarissa KAPOORMA, ??Jill Attending: ?Marilynn MURILLO, Alison Flynn Associate: ?Kathleen MURILLO, Kassandra Sawant Referred By: ?ANGELIA SCHNEIDER MD Service(s) Provided ??UEXTLIMR - Ultrasound Extremity Limited - Right - ? [id number] ??[id number] Indications ??diffuse swelling with pain to radial side of the ??right wrist s/p IV drug use. ??Please evaluate ??for abscess Comparison No prior studies for comparison. -------- Findings -------- Title: ? Ultrasound Report Findings: ?No evidence of foreign body, fluid collection, ?subcutaneous edema or abscess. Procedure Note Alison Mehta MD - 12/09/2015 Ultrasound Report (Signed Final 12/09/2015 05:33 pm) Patient Info ID #: [id number] : [birth year] (35 yrs) Name: KEVIN RAMIREZ Visit Date: 12/09/2015 03:56 pm Performed By Performed By: Jill Romo RDMS Attending: Alison Subramanian MD Associate: Kassandra Wang MD Referred By: ANGELIA SCHNEIDER MD Service(s) Provided UEXTLIMR - Ultrasound Extremity Limited - Right - [id number] Indications diffuse swelling with pain to radial side of the right wrist s/p IV drug use. Please evaluate for abscess Comparison No prior studies for comparison. -------- Findings -------- Title: Ultrasound Report Findings: No evidence of foreign body, fluid collection, subcutaneous edema or abscess. IMPRESSION Impression Unilateral Extremity Summary No fluid collection or abscess. I viewed the images and agree with the above interpretation. Alison Hernandez MD Electronically Signed Final Report 12/09/2015 05:33 pm Angelia Schneider MD [facility] GEN ORDERABL ES * Hepatitis C RNA, quantitative, PCR (12/09/2015 3:20 PM EDT) [facility] HCV Viral Load [id number] IU/mL [facility] HCV Viral Load Result: [id number] IU/mL Indication for Study: Hepatitis C Infection Analysis: A quantitiative real time reverse transcriptase PCR assay was performed on extracted viral RNA for the purpose of quantification. Sample: plasma (1 mL minimum volume) Method: Rigoberto Lazara TaqMAN 48 HCV Linear Range: 15 IU/mL - 100,000,000IU/mL (95% CI) Note: This assay is being performed in the [facility] Molecular Pathology Laboratory. Richard Parsons, Ph.D. Director, Molecular Pathology [facility] Comment: [VERIFIED DATE]12.12.15 Verified By:Rachel Mckeon (Electronic Signature) Blood specimen (specimen) 12/09/2015 3:20 PM EDT 12/11/2015 10:57 AM EDT Narrative Resulting Agency Comment Spec In Lab Kd Duvall MD MOLECULAR ORDERABLES [facility] [place] [address] * Hepatic Function Panel (12/09/2015 3:20 PM EDT) Pathologist [facility] Protein, Total 7.2 6.1 - 8.0 gm/dL [facility] Albumin 3.9 3.2 - 5.2 gm/dL [facility] Aspartate Aminotransferase 27 0 - 39 unit/L [facility] Alanine Aminotransferase 55 0 - 55 unit/L [facility] Alkaline Phosphatase 62 40 - 120 unit/L [facility] Bilirubin, Total 0.2 0.2 - 1.3 mg/dL [facility] Bilirubin, Direct <0.1 0.0 - 0.3 mg/dL [facility] Blood specimen (specimen) 12/09/2015 3:20 PM EDT 12/09/2015 3:32 PM EDT Narrative Resulting Agency Comment Spec In Lab Angelia Schneider MD CHEMISTRY ORDERABLE S Performing Organization Address [facility] Co de Phone Number [facility] [place] [address] * HIV Screen, 4th Generation (12/09/2015 3:20 PM EDT) HIV Ab/Ag Screen Negative Negative [facility] Comment: This 4th Generation HIV test screens for the presence of the HIV-1 p24 antigen as well as antibodies reactive against HIV-1 and HIV-2. A negative screen does not rule out an acute HIV infection. If acute HIV infection is suspected, testing should be repeated in 2 - 3 weeks or HIV nucleic acid testing performed. Blood specimen (specimen) 12/09/2015 3:20 PM EDT 12/09/2015 3:32 PM EDT Narrative Resulting Agency Comment Spec In Lab Angelia Schneider MD CHEMISTRY ORDERABLE S Performing Organization Address [facility] Co de Phone Number [facility] [place] [address] * XR wrist complete minimum 3 views Right (GENERIC) (12/09/2015 1:09 PM EDT) Anatomical Region Laterality Modality Right Digital Radiogra phy Impressions 12/09/2015 1:50 PM EDT Extensive soft tissue swelling over the dorsum and ulnar aspect of the right hand. Healed right fifth metacarpal neck fracture with residual angulation. No evidence for acute fracture or dislocation. No gas within the soft tissues. Narrative 12/09/2015 1:50 PM EDT EXAMINATION: XR WRIST COMPLETE MINIMUM 3 VIEWS RIGHT CLINICAL HISTORY: Pain swelling, infection in the right hand 6 days ago related to IVDU TECHNIQUE: 4 views of the right hand. COMPARISON: None FINDINGS: There is soft tissue swelling over the dorsum of the right hand. Previously healed right fifth metacarpal neck fracture. There remains angulation at the fracture site. No gas within the soft tissues. No evidence for underlying bone abnormality. Note is made of a metallic retained foreign body adjacent to the right medial ulnar cortex. Procedure Note Eileen Tanner MD - 12/09/2015 EXAMINATION: XR WRIST COMPLETE MINIMUM 3 VIEWS RIGHT CLINICAL HISTORY: Pain swelling, infection in the right hand 6 days agorelated to IVDU TECHNIQUE: 4 views of the right hand. COMPARISON: None FINDINGS: There is soft tissue swelling over the dorsum of the right hand.Previously healed right fifth metacarpal neck fracture. There remains angulation atthe fracture site. No gas within the soft tissues. No evidence for underlyingbone abnormality. Note is made of a metallic retained foreign body adjacent tothe right medial ulnar cortex. IMPRESSION Extensive soft tissue swelling over the dorsum and ulnar aspect of theright hand. Healed right fifth metacarpal neck fracture with residualangulation. No evidence for acute fracture or dislocation. No gas within the softtissues. Angelia Schneider MD IMG DX ORDERABLES * (ABNORMAL) Differential, Automated (12/09/2015 12:40 PM EDT) Neutrophil % 65.9 % [facility] Neutrophil Absolute 7.94(H) 1.50 - 6.30 x10(3)/mc L [facility] Lymph % 21.1 % [facility] Lymphocytes Abs 2.5 1.0 - 3.6 x10(3)/mc L [facility] Monocyte % 8.2 % [facility] Monocyte Abs 1.0 0.2 - 1.0 x10(3)/mc L [facility] Eos % 3.9 % [facility] Eosinophils Abs 0.5 0.0 - 0.5 x10(3)/mc L [facility] Basophil % 0.7 % [facility] Baso Absolute 0.1 0.0 - 0.2 x10(3)/mc L [facility] Immature Gran % 0.20 % [facility] Comment: Immature granulocytes(IG's)percentage and absolute count will include metamyelocytes, myelocytes, and promyelocytes. Blood smears from CBCs yielding IG's will be scanned manually for concordance. If this scan disagrees with the automated IG or if promyelocytes are noted, a manual differential will be performed. Immature Gran Absolute 0.03 0.00 - 0.05 x10(3)/mc L [facility] Blood specimen (specimen) 12/09/2015 12:40 PM EDT 12/09/2015 12:57 PM EDT Narrative Resulting Agency Comment Spec In Lab Angelia Schneider MD HEMATOLOGY ORDERABL ES [facility] [place] [address] * (ABNORMAL) Hemogram (12/09/2015 12:40 PM EDT) White Blood Cell 12.0(H) 4.0 - 10.0 x10(3)/[facility] Red Blood Cell 5.04 4.63 - 6.08 x10(6)/[facility] Hemoglobin 15.1 13.7 - 17.5 gm/dL [facility] Hematocrit 43.8 40.0 - 51.0 % [facility] Mean Cell Volume 86.9 79.0 - 92.0 fL [facility] Mean Cell Hemoglobin 30.0 25.6 - 32.2 pg [facility] Mean Cell Hemoglobin Concentration 34.5 32.0 - 36.5 gm/dL [facility] Platelet 301 145 - 370 x10(3)/mc L [facility] RDW Standard Deviation 43.5 35.0 - 46.0 fL [facility] RDW coefficient of variation 13.7 10.9 - 14.4 % [facility] Mean Platelet Volume 10.6 9.0 - 12.0 fL [facility] Blood specimen (specimen) 12/09/2015 12:40 PM EDT 12/09/2015 12:57 PM EDT Narrative Resulting Agency Comment Spec In Lab Angelia Schneider MD HEMATOLOGY ORDERABL ES Performing Organization Address [facility] Co de Phone Number [facility] [place] [address] * High Sensitivity CRP (12/09/2015 12:40 PM EDT) C-Reactive Protein High Sensitivity 39.6 mg/L [facility] Comment: Interpretations: 1) For accurate cardiac risk assessment, the average of 2 values >2 weeks apart should be obtained (ref 1&2). A value >10 mg/L indicates an inflammatory condition, concentrations >10 mg/L should not be used for cardiac risk assessment. ?<1.0 mg/L: low risk ?1.0 - 3.0 mg/L: moderate risk ?>3.0 mg/L: high risk groups for future cardiovascular events 2) The general reference range of apparently healthy individuals using this test is <5.0 mg/L (derived from the test package insert) References: 1. Sandra TA et. al. ??AHA/CDC Scientific Statement: Markers of Inflammation and Cardiovascular Disease. ??Circulation 2003; 107:499-511 2. Ridker PM. ??Clinical applications of C-reactive protein for cardiovascular disease detection and prevention. ??Circulation 2003; 107:363-369 Blood specimen (specimen) 12/09/2015 12:40 PM EDT 12/09/2015 12:57 PM EDT Narrative Resulting Agency Comment Spec In Lab Angelia Schneider MD CHEMISTRY ORDERABLE S Performing Organization Address [facility]/ZIP Co de Phone Number [facility] [place] [address] * Sedimentation rate (12/09/2015 12:40 PM EDT) Sedimentation Rate Automated 11 0 - 15 mm/hr [facility] Blood specimen (specimen) 12/09/2015 12:40 PM EDT 12/09/2015 12:57 PM EDT Narrative Resulting Agency Comment Spec In Lab Angelia Schneider MD HEMATOLOGY ORDERABL ES [facility] [place] [address] * Basic Metabolic Panel (non-fasting) (12/09/2015 12:40 PM EDT) Glucose 108 65 - 199 mg/dL [facility] Comment:Diabetes: >=200 mg/d L plus symptoms Blood Urea Nitrogen 12 10 - 20 mg/dL [facility] Creatinine 1.07 0.80 - 1.50 mg/dL [facility] Comment: Please note that the pediatric reference intervals supplied above were not validated at [facility]. Results from pediatric patients should be interpreted in conjunction to the patient's age, height and muscle mass. Sodium 140 135 - 145 mmol/L [facility] Potassium 4.5 3.5 - 5.0 mmol/L [facility] Comment: Please note: ??Patients with WBC >100,000 may have falsely elevated Potassium levels. ??For accurate Potassium quantification in these patients send serum separator tube (gold top) for subsequent determinations. ??Contact the Clinical Chemistry Laboratory if there are any questions. Chloride 103 98 - 107 mmol/L [facility] Carbon Dioxide 22 22 - 31 mmol/L [facility] Anion Gap 15 5 - 15 mmol/L [facility] Calcium 9.3 8.5 - 10.5 mg/dL [facility] Est Glomerular Filtration Rate >60 >=60 [facility] Comment: This estimated GFR (eGFR) [...] the following links into your internet browser. [email or web address] Blood specimen (specimen) 12/09/2015 12:40 PM EDT 12/09/2015 12:57 PM EDT Narrative Resulting Agency Comment Spec In Lab Angelia Schneider MD CHEMISTRY ORDERABLE S [facility] [place] [address] documented in this encounter Visit Diagnoses Diagnosis Cellulitis of hand- Primary Cellulitis and abscess of hand, except fingers and thumb Cellulitis of hand Cellulitis and abscess of hand, except fingers and thumb Injury, superficial, hand with infection Other and unspecified superficial injury of hand(s) except finger(s) alone, infected documented in this encounter Admitting Diagnoses Diagnosis Cellulitis of hand Cellulitis and abscess of hand, except fingers and thumb Injury, superficial, hand with infection Other and unspecified superficial injury of hand(s) except finger(s) alone, infected documented in this encounter Administered Medications Inactive Administered Medications - up to 3 most recent administrations Medication Order MAR Action Action Date Dose Rate Site acetaminophen (TYLENOL) tablet 650 mg 650 mg, Oral, ONCE, 1 dose, On Tue12/09/15 at 1305, Maximum dose of acetaminophen is 4000 mg from all sources in 24 hours., STAT Given 12/09/2015 1:09 PM EDT 650 mg ibuprofen (ADVIL;MOTRIN) tablet 800 mg 800 mg, Oral, EVERY 8 HOURS PRN, Starting on Tue12/09/15 at 2116, Until Tue12/11/15 at 1600, Pain, Administer orally with milk or food to minimize GI irritation, STAT Given 12/10/2015 10:00 PM EDT 800 mg Given 12/09/2015 9:25 PM EDT 800 mg lamoTRIgine (LaMICtal) tablet 25 mg 25 mg, Oral, DAILY, First dose on Tue12/10/15 at 0900, Until Discontinued, Routine Given 12/11/2015 8:18 AM EDT 25 mg Given 12/10/2015 8:54 AM EDT 25 mg nicotine (NICODERM CQ) 14 mg/24 hr patch 14 mg 14 mg, Transdermal, Administer over 24 Hours, ONCE, 1 dose, On Tue12/10/15 at 0823, STAT Given 12/10/2015 8:53 AM EDT 14 mg 09- Arm Upper (Left) nicotine polacrilex (NICORETTE) gum 2 mg 2 mg, Buccal, EVERY 2 HOURS PRN, Starting on Tue12/10/15 at 2113, Until Tue12/11/15 at 1600, Smoking cessation, Chew gum slowly. Do not swallow. Maximum of 48 mg/day., Routine Given 12/11/2015 10:41 AM EDT 2 mg Given 12/10/2015 10:46 PM EDT 2 mg piperacillin-tazobactam (ZOSYN) 3.375 g in dextrose 5% 50 mL 3.375 g, Intravenous, EVERY 8 HOURS, 3 doses, First dose on Tue12/09/15 at 1500, Last dose on Tue12/10/15 at 0700, Administer over 4 Hours, Indication for (Active or Suspected): Skin/Skin Structure Given 12/10/2015 6:41 AM EDT 3.375 g 12.5 mL/hr Given 12/09/2015 11:06 PM EDT 3.375 g 12.5 mL/hr Given 12/09/2015 3:20 PM EDT 3.375 g 12.5 mL/hr piperacillin-tazobactam (ZOSYN) 3.375 g in dextrose 5% 50 mL 3.375 g, Intravenous, EVERY 8 HOURS, First dose on Tue12/10/15 at 2030, Until Discontinued, Administer over 4 Hours, Indication for (Active or Suspected): Skin/Skin Structure Given 12/11/2015 5:49 AM EDT 3.375 g 12.5 mL/hr Given 12/10/2015 9:58 PM EDT 3.375 g 12.5 mL/hr traZODone (DESYREL) tablet 50 mg 50 mg, Oral, NIGHTLY, First dose on Tue12/09/15 at 2151, Until Discontinued, Routine Given 12/10/2015 11:1 4 PM EDT 50 mg Given 12/09/2015 10:42 PM EDT 50 mg vancomycin 1.5 g in sodium chloride 0.9% 250 mL 1,500 mg (1.5 g), Intravenous, EVERY 12 HOURS, First dose on Tue12/10/15 at 0400, Until Discontinued, Maximum infusion rate is 1 gram/hour. If flushing of the face, neck, upper body, arms, and/or back occurs decrease infusion rate by 50% to reduce the severity of symptoms. This medication may have an associated drug lab level. Please see MAR for scheduled level., Routine, Indication for (Active or Suspected): Bacteremia/Sepsis Given 12/11/2015 4:52 AM EDT 1,500 mg Given 12/10/2015 4:15 PM EDT 1,500 mg Given 12/10/2015 3:55 AM EDT 1,500 mg vancomycin 2 g in sodium chloride 0.9% 500 mL 2,000 mg (2 g), Intravenous, ONCE, 1 dose, On Tue12/09/15 at 1519, Maximum infusion rate is 1 gram/hour. If flushing of the face, neck, upper body, arms, and/or back occurs decrease infusion rate by 50% to reduce the severity of symptoms. This medication may have an associated drug lab level. Please see MAR for scheduled level., STAT, Indication for (Active or Suspected): Bacteremia/Sepsis Given 12/09/2015 3:28 PM EDT 2,000 mg documented in this encounter Active and Recently Administered Medications Times are shown in EDT. Scheduled Medication Order 12/09/2015 12/10/2015 12/11/2015 acetaminophen (TYLENOL) tablet 650 mg (COMPLETED) 650 mg, Oral, ONCE, 1 dose, On Tue12/09/15 at 1305, Maximum dose of acetaminophen is 4000 mg from all sources in 24 hours., STAT 1309 (Given - Provider: Antonette Saeed RN) lamoTRIgine (LaMICtal) tablet 25 mg 25 mg, Oral, DAILY, First dose on Tue12/10/15 at 0900, Until Discontinued, Routine 0854 (Given - Provider: Luz Miller RN) 0818 (Given - Provider: Khadijah Fernandez RN) nicotine (NICODERM CQ) 14 mg/24 hr patch 14 mg (COMPLETED) 14 mg, Transdermal, Administer over 24 Hours, ONCE, 1 dose, On Tue12/10/15 at 0823, STAT 0853 (Given - Provider: Luz Miller RN) piperacillin-tazobactam (ZOSYN) 3.375 g in dextrose 5% 50 mL (COMPLETED) 3.375 g, Intravenous, EVERY 8 HOURS, 3 doses, First dose on Tue12/09/15 at 1500, Last dose on Tue12/10/15 at 0700, Administer over 4 Hours, Indication for (Active or Suspected): Skin/Skin Structure 1520 (Given - Provider: Antonette Saeed RN)2306 (Given - Provider: Nadine Soria RN) 0641 (Given - Provider: Nadine Soria RN)1050 (IV Stop - Provider: Luz Miller RN) piperacillin-tazobactam (ZOSYN) 3.375 g in dextrose 5% 50 mL 3.375 g, Intravenous, EVERY 8 HOURS, First dose on Tue12/10/15 at 2030, Until Discontinued, Administer over 4 Hours, Indication for (Active or Suspected): Skin/Skin Structure 2158 (Given - Provider: Radha Chicas RN) 0549 (Given - Provider: Radha Chicas RN)1350 (Not Given - Provider: Khadijah Fernandez RN - Reason: See comment - Comment: pt discharged) traZODone (DESYREL) tablet 50 mg 50 mg, Oral, NIGHTLY, First dose on Tue12/09/15 at 2151, Until Discontinued, Routine 2242 (Given - Provider: Nadine Soria RN) 2314 (Given - Provider: Radha Chicas RN) vancomycin 1.5 g in sodium chloride 0.9% 250 mL (CANCELED) 1,500 mg (1.5 g), Intravenous, EVERY 12 HOURS, First dose on Tue12/10/15 at 0400, Until Discontinued, Maximum infusion rate is 1 gram/hour. If flushing of the face, neck, upper body, arms, and/or back occurs decrease infusion rate by 50% to reduce the severity of symptoms. This medication may have an associated drug lab level. Please see MAR for scheduled level., Routine, Indication for (Active or Suspected): Bacteremia/Sepsis 0355 (Given - Provider: Nadine Soria RN)1615 (Given - Provider: Bobby Sanchez RN) 0452 (Given - Provider: Radha Chicas RN) vancomycin 2 g in sodium chloride 0.9% 500 mL (COMPLETED) 2,000 mg (2 g), Intravenous, ONCE, 1 dose, On Tue12/09/15 at 1519, Maximum infusion rate is 1 gram/hour. If flushing of the face, neck, upper body, arms, and/or back occurs decrease infusion rate by 50% to reduce the severity of symptoms. This medication may have an associated drug lab level. Please see MAR for scheduled level., STAT, Indication for (Active or Suspected): Bacteremia/Sepsis 1528 (Given - Provider: Antonette Saeed, COCO)1749 (IV Stop - Provider: Tom Hawkins RN) PRN Medication Order 12/09/2015 12/10/2015 12/11/2015 ibuprofen (ADVIL;MOTRIN) tablet 800 mg 800 mg, Oral, EVERY 8 HOURS PRN, Starting on Tue12/09/15 at 2116, Until Tue12/11/15 at 1600, Pain, Administer orally with milk or food to minimize GI irritation, STAT 2124 (Given - Provider: Nadine Soria RN) 2200 (Given - Provider: Radha Chicas, COCO) nicotine polacrilex (NICORETTE) gum 2 mg 2 mg, Buccal, EVERY 2 HOURS PRN, Starting on Tue12/10/15 at 2113, Until Tue12/11/15 at 1600, Smoking cessation, Chew gum slowly. Do not swallow. Maximum of 48 mg/day., Routine 2246 (Given - Provider: Radha Chicas, COCO) 1041 (Given - Provider: Khadijah Fernandez RN) documented in this encounter Care Teams Statue Maker Relationship Specialty Start Date End Date Butch Fisher MD [address] [place] [address] PCP - General Family Medicine 12/09/15 06/27/16 documented as of this encounter
--- OUTSIDE RECORDS SUMMARY | 2024-06-21 15:32 | XMS_ITS | Encounter Summary ---
Author Organization [facility] Address [facility] [place] [address] Care Team Providers Care Lathe Operator Contact Lens Name Role Phone Laura Ho MD Primary Care Provider [phone] Encounter Details Date Type Department Care Team (Late st Contact Info) Description 08/11/2017 3:10 PM EST Laboratory Appointment Lab [address] [place] [phone] Social History Tobacco Use Types Packs/Day Years [...] Procedure Name Priority Date/Time Associated Diagnosis Comments HEPATITIS C ANTIBODY Routine 08/11/2017 4:18 PM EST HEPATITIS A ANTIBODY, TOTAL Routine 08/11/2017 4:18 PM EST HEPATITIS B CORE ANTIBODY, TOTAL Routine 08/11/2017 4:18 PM EST HIV SCREEN, 4TH GENERATION ([facility]/CGP/APD/NLH) Routine 08/11/2017 4:18 PM EST HEPATIC FUNCTION PANEL Routine 08/11/2017 4:18 PM EST documented in this encounter Results * Hepatitis A Antibody, Total (08/11/2017 4:18 PM EST) Hepatitis A ANTIBODY, TOTAL Negative Negative [facility] Blood specimen (specimen) Venous Draw / Unknown 08/11/2017 4:18 PM EST 08/11/2017 4:21 PM EST Narrative Resulting Agency Comment Spec In Lab Fitz Quach MD CHEMISTRY ORDERABLES Performing Organization Address City/[facility] Co de Phone Number [facility] [place] [address] * (ABNORMAL) Hepatic Function Panel (08/11/2017 4:18 PM EST) [facility] Protein, Total 8.0 6.1 - 8.0 gm/dL [facility] Albumin 4.9 3.2 - 5.2 gm/dL [facility] Aspartate Aminotransferase Not Perf 0 - 39 unit/L [facility] Comment:Unable to quantitate due to sample hemolysis. Sample redraw suggested. Alanine Aminotransferase 102(H) 0 - 55 unit/L [facility] Alkaline Phosphatase 90 40 - 120 unit/L [facility] Bilirubin, Total 0.2 0.2 - 1.3 mg/dL [facility] Bilirubin, Direct 0.1 0.0 - 0.3 mg/dL [facility] Blood specimen (specimen) Venous Draw / Unknown 08/11/2017 4:18 PM EST 08/11/2017 4:21 PM EST Narrative Resulting Agency Comment Spec In Lab Fitz Quach MD CHEMISTRY ORDERABLES Performing Organization Address City/[facility]/ZIP Co de Phone Number [facility] [place] [address] * Hepatitis B Core Antibody, Total (08/11/2017 4:18 PM EST) [facility] Hepatitis B Core Antibody Negative Negative [facility] Blood specimen (specimen) Venous Draw / Unknown 08/11/2017 4:18 PM EST 08/11/2017 6:00 PM EST Narrative Resulting Agency Comment Spec In Lab Fitz Quach MD CHEMISTRY ORDERABLES Performing Organization Address City/[facility]/ZIP Co de Phone Number [facility] [place] [address] * (ABNORMAL) Hepatitis C Antibody (08/11/2017 4:18 PM EST) Hepatitis C Antibody Positive(A ) Negative [facility] Blood specimen (specimen) Venous Draw / Unknown 08/11/2017 4:18 PM EST 08/11/2017 6:00 PM EST Narrative Resulting Agency Comment Spec In Lab Fitz Quach MD CHEMISTRY ORDERABLES Performing Organization Address [facility] Co de Phone Number [facility] [place] [address] * HIV Screen, 4th Generation (08/11/2017 4:18 PM EST) HIV Ab/Ag Screen Negative Negative [facility] Comment: This 4th Generation HIV [...] In Lab Fitz Quach MD CHEMISTRY ORDERABLES Performing Organization Address [facility] Co de Phone Number [facility] [address] documented in this encounter Visit Diagnoses Not on filedocumented in this encounter Care Teams Lathe Operator Contact Lens Relationship Specialty Start Date End Date Laura Ho MD [address] [place] [address] PCP - General Family Medicine 06/28/16 documented as of this encounter
--- OUTSIDE RECORDS SUMMARY | 2024-06-21 15:32 | XMS_ITS | Encounter Summary ---
Author Organization [facility] Address [facility] [address] [place] [address] Care Team Providers Care Staple Side Laster Name Role Phone Laura Ho MD Primary Care Provider [phone] Encounter Details Date Type Department Care Team (Late st Contact Info) Description 08/08/2019 Ancillary Procedure Radiology Library at [facility] [place] [id number] Gorge Edgar MD [facility] [place] [address] Social History Tobacco Use Types Packs/Day Years [...] Diagnosis Comments FILM LIBRARY STORAGE ONLY DX KNEE Routine 08/08/2019 12:00 AM EST documented in this encounter Results * Film Library- Storage Only DX Knee (08/08/2019 12:00 AM EST) Narrative SUSAN - 08/30/2019 10:07 PM EST This exam is auto-finalizing. It's purpose is for storage only. Gorge Edgar MD G FILM LIBRARY ORD ERABLES [place], [place] documented in this encounter Visit Diagnoses Not on filedocumented in this encounter Care Teams Staple Side Laster Relationship Specialty Start Date End Date Laura Ho MD [address] [place] [address] PCP - General Family Medicine 06/28/16 documented as of this encounter
--- OUTSIDE RECORDS SUMMARY | 2024-06-21 15:33 | XMS_ITS | Encounter Summary ---
Author Organization [facility] Address [address] [place] [address] Care Team Providers Care Buffing Machine Tender Name Role Phone Laura Ho MD Primary Care Provider [phone] Encounter Details Date Type Department Care Team (Latest Contact Info) Description 11/15/2023 Specialty Pharmacy [facility] [address] [place], [place] [id number] Clara Carpenter RPH Refill Coordination Outreach for [...] on filedocumented in this encounter Care Teams Buffing Machine Tender Relationship Specialty Start Date End Date Laura Ho MD [address] [place] [address] PCP - General 12/25/19 documented as of this encounter
--- OUTSIDE RECORDS SUMMARY | 2024-06-21 15:33 | XMS_ITS | Encounter Summary ---
Author Organization [facility] Address [address] [place] [address] Care Team Providers Care Eeg Tech Name Role Phone Unknown, Provider Primary Care Provider Unava ilable Encounter Details Date Type Department Care Team (Late st Contact Info) Description 02/21/2019 Historical Results Only [facility] [place] [address] Arian Charles MD Social History Tobacco Use Types Packs/Day Years Used Date Smoking Tobacco: Never Assessed Sex and Gender Information Value Date Recorded Sex Assigned at Not on file Legal Sex Male 22:57 EDT Gender Identity Not on file Sexual Orientation Not on file documented as of this encounter Plan of Treatment Not on file documented as of this encounter Procedures Procedure Name Priority Date/Time Associated Diagnosis Comments HCV GENOTYPE, SERUM Routine 02/21/2019 1 3:57 EDT documented in this encounter Results * HCV GENOTYPE, SERUM (02/21/2019 13:57 EDT) HEPATITIS C GENOTYPING - [facility] Undetected 02/26/2019 20:02 EDT [facility] Comment: ADDITIONAL INFORMATION This test was performed using the [employer] RealTime HCV Genotype II assay ([employer] [place], [place]). Test Performed by: [facility] [address] [address] 02/21/2019 13:5 7 EDT 02/21/2019 14:05 EDT Narrative [facility] - 02/26/2019 20:02 EDT HEP C GT REFLEXED 02-23-19 us Arian Charles MD CHEMISTRY & BLOOD GAS ORDERAB LES Final Result Performing Organization Address City/State/[facility] Co de Phone Number [facility] documented in this encounter Visit Diagnoses Not on filedocumented in this encounter Care Teams Eeg Tech Relationship Specialty Start Date End Date Unknown, Provider, PCP - General 10/07/14 12/24/19 documented as of this encounter
--- OUTSIDE RECORDS SUMMARY | 2024-06-21 15:33 | XMS_ITS | Encounter Summary ---
Author Organization [facility] Address [address] [place] [address] Care Team Providers Care Switchboard Installer Name Role Phone Unknown, Provider Primary Care Provider Unava ilable Encounter Details Date Type Department Care Team (Late st Contact Info) Description 04/28/2015 Historical Results Only [facility] Radiology Results [address] [place], [place] [id number] Mahendra Meyer [address] [place] [phone] Social History Tobacco Use Types Packs/Day Years [...] Procedure Name Priority Date/Time Associated Diagnosis Comments XR FOREARM RIGHT 2 VIEWS 04/28/2015 12:48 EDT documented in this encounter Results * XR FOREARM RIGHT 2 VIEWS (04/28/2015 12:48 EDT) Anatomical Region Laterality Modality Upper Extremities Right Other 04/28/2015 12:4 8 EDT Narrative 04/28/2015 12:53 EDT ? EXAM: RADIOLOGY/FOREARM-RIGHT- 2 VIEW ? EX. D/ (1231) ? CLINICAL INFORMATION: ? CRUSH INJURY ? FX ? INDICATION: Crush injury. Pain. ? TECHNIQUE: 2 views right forearm. ? COMPARISON: None. ? FINDINGS: The right forearm is well aligned. No destructive bone ? changes seen. No fracture is detected. There is a small ossific ? density in the soft tissues along the dorsal surface of the distal ? radius. There is a small olecranon enthesophyte. ? IMPRESSION: ? 1. ??No right forearm acute osseous abnormality detected. ? 2. ??Small 5 mm linear metallic density in the soft tissues along the ? dorsal distal radial region. Please correlate clinically. ? REPORT SIGNED IN OTHER VENDOR SYSTEM 04/28/2015 ?Reported By: Hermilo Arevalo MD ? CC: ? Transcribed Date/Time: 04/28/2015 (1253) ? Phone Manager: ? Printed Date/Time: 12/19/2018 (1139) ? PAGE 1 ? Signed Report ? Procedure Note Hermilo Arevalo MD - 05/15/2019 EXAM: RADIOLOGY/FOREARM-RIGHT- 2 VIEW EX. D/ (1231) CLINICAL INFORMATION: CRUSH INJURY ? FX INDICATION: Crush injury. Pain. TECHNIQUE: 2 views right forearm. COMPARISON: None. FINDINGS: The right forearm is well aligned. No destructive bone changes seen. No fracture is detected. There is a small ossific density in the soft tissues along the dorsal surface of the distal radius. There is a small olecranon enthesophyte. IMPRESSION: 1. No right forearm acute osseous abnormality detected. 2. Small 5 mm linear metallic density in the soft tissues alongthe dorsal distal radial region. Please correlate clinically. REPORT SIGNED IN OTHER VENDOR SYSTEM 04/28/2015 Reported By: Hermilo Arevalo MD CC: Transcribed Date/Time: 04/28/2015 (5217) Phone Manager: Printed Date/Time: 12/19/2018 (0483) PAGE 1 Signed Report [facility] ORDERABLE S Final Result documented in this encounter Visit Diagnoses Not on filedocumented in this encounter Care Teams Switchboard Installer Relationship Specialty Start Date End Date Unknown, Provider, PCP - General 10/07/14 12/24/19 documented as of this encounter
--- OUTSIDE RECORDS SUMMARY | 2024-06-21 15:33 | XMS_ITS | Encounter Summary ---
Author Organization [facility] Address [address] [place] [address] Care Team Providers Care Looping Machine Operator Name Role Phone Laura Ho MD Primary Care Provider Encounter Details Date Type Department Care Team (Latest Contact Info) Description 12/25/2019 Travel Social History Tobacco Use Types Packs/Day Years Used Date Smoking Tobacco: Every Day Cigarettes 2 30 Smokeless Tobacco: Never Alcohol Use Standard Drinks/Week Comments Yes 16 (1 standard drink = 0.6 oz pu re alcohol) Sex and Gender Information Value Date Recorded Sex Assigned at Not on file Legal Sex Male 22:57 EDT Gender Identity Not on file Sexual Orientation Not on file COVID-19 Exposure Response Date Recorded In the last month, have you been in contact with someone who was confirmed or suspected to have Coronavirus / COVID-19? No / Unsure 12/25/2019 14:08 EDT documented as of this encounter Functional Status [...] on filedocumented in this encounter Care Teams Looping Machine Operator Relationship Specialty Start Date End Date Laura Ho MD [address] [place] [address] PCP - General 12/25/19 documented as of this encounter
--- OUTSIDE RECORDS SUMMARY | 2024-06-21 15:33 | XMS_ITS | Encounter Summary ---
Author Organization [facility] Address [address] [place] [address] Care Team Providers Care Road Oiling Truck Driver Name Role Phone Laura Ho MD Primary Care Provider [phone] Encounter Details Date Type Department Care Team (Latest Contact Info) Description 08/24/2023 Transcribe Orders [facility] - Main [address] [place] [address] Gia Enriquez APRN [address] [place] [address] [address] [place], [place] [id number] Hyperlipidemia, unspecified hyperlipidemia type (Primary Dx); Essential hypertension, malignant; Routine general medical examination at a health care facility Social History Tobacco Use Types Packs/Day Years [...] in this encounter Plan of Treatment Scheduled Orders Name Type Priority Associated Diagnoses Orde r Schedule COMPLETE BLOOD COUNT AND DIFFERENTIAL Lab Routine Hyperlipidemia, unspecified hyperlipidemia type Essential hypertension, malignant Routine general medical examination at a health care facility Expected: 08/24/2023, Expires: 08/24/2024 COMPREHENSIVE METABOLIC PANEL (CMP) Lab Routine Hyperlipidemia, unspecified hyperlipidemia type Essential hypertension, malignant Routine general medical examination at a health care facility Expected: 08/24/2023, Expires: 08/24/2024 LIPID PROFILE (INCLUDES CHOLESTEROL, TRIGLYCERIDES, HDL, LDL) Lab Routine Hyperlipidemia, unspecified hyperlipidemia type Essential hypertension, malignant Routine general medical examination at a health care facility Expected: 08/24/2023, Expires: 08/24/2024 VITAMIN D (25,[place]) Lab Routine Hyperlipidemia, unspecified hyperlipidemia type Essential hypertension, malignant Routine general medical examination at a health care facility Expected: 08/24/2023, Expires: 08/24/2024 VITAMIN B12 Lab Routine Hyperlipidemia, unspecified hyperlipidemia type Essential hypertension, malignant Routine general medical examination at a health care facility Expected: 08/24/2023, Expires: 08/24/2024 MAGNESIUM Lab Routine Hyperlipidemia, unspecified hyperlipidemia type Essential hypertension, malignant Routine general medical examination at a health care facility Expected: 08/24/2023, Expires: 08/24/2024 TSH Lab Routine Hyperlipidemia, unspecified hyperlipidemia type Essential hypertension, malignant Routine general medical examination at a health care facility Expected: 08/24/2023, Expires: 08/24/2024 T4 FREE Lab Routine Hyperlipidemia, unspecified hyperlipidemia type Essential hypertension, malignant Routine general medical examination at a health care facility Expected: 08/24/2023, Expires: 08/24/2024 ACUTE HEPATITIS PROFILE Lab Routine Hyperlipidemia, unspecified hyperlipidemia type Essential hypertension, malignant Routine general medical examination at a health care facility Expected: 08/24/2023, Expires: 08/24/2024 DRUG SCREEN 12, URINE Lab Routine Hyperlipidemia, unspecified hyperlipidemia type Essential hypertension, malignant Routine general medical examination at a health care facility Expected: 08/24/2023 (Approximate), Expires: 08/24/2024 BUPRENORPHINE AND METABOLITES SCREEN, URINE Lab Routine Hyperlipidemia, unspecified hyperlipidemia type Essential hypertension, malignant Routine general medical examination at a health care facility Expected: 08/24/2023, Expires: 08/24/2024 documented as of this encounter Visit Diagnoses Diagnosis Hyperlipidemia, unspecified hyperlipidemia type- Primary Essential hypertension, malignant Routine general medical examination at a health care facility documented in this encounter Care Teams Road Oiling Truck Driver Relationship Specialty Start Date End Date Laura Ho MD [address] [place] [address] PCP - General 12/25/19 documented as of this encounter
--- OUTSIDE RECORDS SUMMARY | 2024-06-21 15:33 | XMS_ITS | Encounter Summary ---
Author Organization [facility] Address [address] [place] [address] Care Team Providers Care Film Archivist Name Role Phone Unknown, Provider Primary Care Provider Unava ilable Encounter Details Date Type Department Care Team (Late st Contact Info) Description 01/05/2017 Historical Results Only [facility] Lab - Main [address] [address] Arian Charles MD Social History Tobacco Use [...] Priority Date/Time Associated Diagnosis Comments HEPATITIS C DIAG PROGRESSIVE - [facility] Routine 01/05/2017 8:48 EDT COMPLETE BLOOD COUNT WITH DIFFERENTIAL (AUTO) Routine 01/05/2017 8:48 EDT HIV 1/2 AB, P24 AG - [facility] Routine 01/05/2017 8:47 EDT HEPATITIS A TOTAL ANTIBODY W REFLEX Routine 01/05/2017 8:47 EDT HEPATITIS B SURFACE ANTIBODY Routine 01/05/2017 8:47 EDT HEPATITIS B SURFACE ANTIGEN Routine 01/05/2017 8:47 EDT COMPREHENSIVE METABOLIC PANEL (CMP) Routine 01/05/2017 8:47 EDT documented in this encounter Results * (ABNORMAL) COMPLETE BLOOD COUNT WITH DIFFERENTIAL (AUTO) (01/05/2017 8:48 EDT) ABSOLUTE NEUTROPHIL COUN - [facility] 4.87 1.7 - 7.0 10e3/ul 01/05/2017 11:31 [facility] BASO # - [facility] 0.09 0.0 - 0.3 10e3/uL 01/05/2017 11:31 [facility] BASO % - [facility] 1 0 - 2 % 01/05/2017 11:31 [facility] EOS # - [facility] 0.78(H) 0.05 - 0.5 10e3/uL 01/05/2017 11:31 [facility] EOS % - [facility] 9(H) 0 - 5 % 01/05/2017 11:31 [facility] GRAN % - [facility] 54 40 - 80 % 01/05/2017 11:31 [facility] HEMATOCRIT - [facility] 48.1 36.0 - 52.0 % 01/05/2017 11:31 [facility] HEMOGLOBIN - [facility] 16.0 13.7 - 17.5 g/dl 01/05/2017 11:31 [facility] IG# - [facility] 0.03 0 - 0.07 e3/uL 01/05/2017 11:31 [facility] IG% - [facility] 0.3 0 - 0.9 % 01/05/2017 11:31 [facility] LYMPH # - [facility] 2.48 0.9 - 2.9 e3/uL 01/05/2017 11:31 [facility] LYMPH% - [facility] 27 20 - 40 % 01/05/2017 11:31 [facility] MEAN CORPUSCULAR HGB - [facility] 30.2 26 - 34 pg 01/05/2017 11:31 [facility] MEAN CORPUSCULAR HGB CONC - [facility] 33.3 31 - 36 g/dL 01/05/2017 11:31 [facility] MEAN CELL VOLUME - [facility] 90.9 77 - 100 fl 01/05/2017 11:31 [facility] MONO # - [facility] 0.85 0.3 - 0.9 10e3/uL 01/05/2017 11:31 EDT [facility] MONO% - [facility] 9 0 - 12 % 01/05/2017 11:31 [facility] PLATELET COUNT 278 150 - 400 10e3/ul [facility]LO[facility] - [facility] 5.29 4.3 - 5.7 10e6/ul 01/05/2017 11:31 [facility] RED CELL DISTRI WIDTH - [facility] 13.9 11.8 - 15.6 % 01/05/2017 11:31 [facility] WHITE BLOOD COUNT - [facility] 9.1 3.5 - 10.5 10e3/ul 01/05/2017 11:31 [facility] 01/05/2017 8:48 EDT 01/05/2017 8:48 EDT Narrative [facility] - 01/05/2017 11:31 EDT Does PT Have a Latex Allergy? NO us Arian Charles MD HEMATOLOGY & PF4 ORDERABLES F inal Result [facility] * HEPATITIS C DIAG PROGRESSIVE [facility] (01/05/2017 8:48 EDT) HEP C RNA BY [facility] [id number] Undetected IU/mL 01/08/2017 16:45 EDT [facility] Comment: Result in log IU/mL is 4.88. ADDITIONAL INFORMATION The quantification range of this assay is 15 to 100,000,000 IU/mL (1.18 log to 8.00 log IU/mL). Testing was performed by the [employer] AmpliPrep/YOUSUF TaqMan HCV Test, version 2.0 ([employer] Test Performed by: [id number] [place] [address] 4.88 01/08/2017 16:45 T [facility] 01/05/2017 8:48 EDT 01/05/2017 8:48 EDT Narrative [facility] - 01/08/2017 16:45 EDT Does PT Have a Latex Allergy? NO us Arian Charles MD CHEMISTRY & BLOOD GAS ORDERAB LES Final Result [facility] * (ABNORMAL) COMPREHENSIVE METABOLIC PANEL (CMP) (01/05/2017 8:47 EDT) Albumin % 4.0 3.4 - 5.0 g/dL 01/05/2017 10:40 [facility] ALKALINE PHOSPHATASE - [facility] 87 42 - 122 U/L 01/05/2017 10:40 [facility] BILIRUBIN TOTAL 0.5 0.0 - 1.0 mg/dL 01/05/2017 10:40 [facility] BUN - [facility] 17 7 - 18 mg/dL 01/05/2017 10:40 [facility] CALCIUM - [facility] 9.4 8.5 - 10.1 mg/dL 01/05/2017 10:40 [facility] Chloride 108(H) 98 - 107 mEq/L 01/05/2017 10:40 [facility] CO2 Total 25 21 - 32 mEq/L 01/05/2017 10:40 [facility] CREATININE 1.11 0.5 - 1.3 mg/dL 01/05/2017 10:40 [facility] eGFR >60 01/05/2017 10:40 [facility] Comment: Chronic renal impairment is defined as GFR <60 Multiply result by 1.210 for patients. Anion Gap 6 5 - 15 01/05/2017 10:40 [facility] GLUCOSE - [facility] 86 70 - 100 mg/dL 01/05/2017 10:40 [facility] Potassium 4.2 3.5 - 5.0 mEq/L 01/05/2017 10:40 EDT [facility] Sodium 139 135 - 145 mEq/L 01/05/2017 10:40 EDT [facility] TOTAL PROTEIN - [facility] 7.6 6.4 - 8.2 gm/dl 01/05/2017 10:40 EDT [facility] SGOT/AST - [facility] 56(H) 10 - 37 U/L 01/05/2017 10:40 EDT [facility] SGPT/ALT - [facility] 130(H) 12 - 78 U/L 01/05/2017 10:40 EDT [facility] 01/05/2017 8:47 EDT 01/05/2017 8:47 EDT [facility] - 01/05/2017 10:40 EDT Does PT Have a Latex Allergy? NO Arian Charles MD CHEMISTRY & BLOOD GAS ORDERAB LES Final Result Performing Organization Address [facility]/ZIP Co de Phone Number [facility] * HEPATITIS B SURFACE ANTIGEN (01/05/2017 8:47 EDT) Hep B Surface Ag Negative 01/05/2017 10:59 EDT [facility] Comment:Expected Values: Neg ative. 01/05/2017 8:47 EDT 01/05/2017 8:47 EDT [facility] - 01/05/2017 11:28 EDT Does PT Have a Latex Allergy? NO Arian Charles MD CHEMISTRY & BLOOD GAS ORDERAB LES Final Result [facility] * HEPATITIS B SURFACE ANTIBODY (01/05/2017 8:47 EDT) HEPATITIS B ANTIBODY (SURF) - [facility] Negative 01/05/2017 10:48 EDT [facility] Comment:Expected Values: Neg ative. 01/05/2017 8:47 EDT 01/05/2017 8:47 EDT [facility] - 01/05/2017 11:28 EDT Does PT Have a Latex Allergy? NO Arian Charles MD CHEMISTRY & BLOOD GAS ORDERAB LES Final Result Performing Organization Address [facility] de Phone Number [facility] * HEPATITIS A TOTAL ANTIBODY W REFLEX (01/05/2017 8:47 EDT) Hepatitis A Antibody, IgM Negative 01/05/2017 11:28 EDT [facility] Comment:Expected Values: Neg ative 01/05/2017 8:47 EDT 01/05/2017 8:47 EDT [facility] - 01/05/2017 11:28 EDT Does PT Have a Latex Allergy? NO Arian Charles MD CHEMISTRY & BLOOD GAS ORDERAB LES Final Result Performing Organization Address [facility] * HIV 1/2 AB, P24 AG - [facility] (01/05/2017 8:47 EDT) HIV 1/2 AB, P24 AG - [facility] Non-Reacti ve Non-React 01/05/2017 11:27 EDT [facility] Comment: Assayed using Siemens 4th generation [employer]ia Centaur HIV 1/2 Ab, p24 Ag combination assay. 01/05/2017 8:47 EDT 01/05/2017 8:48 EDT [facility] - 01/05/2017 11:27 EDT Does PT Have a Latex Allergy? NO Arian Charles MD CHEMISTRY & BLOOD GAS ORDERAB LES Final Result Performing Organization Address [facility] Co de Phone Number [facility] documented in this encounter Visit Diagnoses Not on filedocumented in this encounter Care Teams Film Archivist Relationship Specialty Start Date End Date Unknown, Provider, PCP - General 10/07/14 12/24/19 documented as of this encounter
--- OUTSIDE RECORDS SUMMARY | 2024-06-21 15:33 | XMS_ITS | Encounter Summary ---
Author Organization [facility] Address [address] [place] [address] Care Team Providers Care Legal Office Administrator Name Role Phone Unknown, Provider Primary Care Provider Unava ilable Encounter Details Date Type Department Care Team (Late st Contact Info) Description 09/04/2019 Results Only [facility] Lab - Main [address] [address] Arian Charles MD Social History Tobacco Use [...] RNA DETECT QUANT Routine 09/04/2019 15:57 EST documented in this encounter Results * HCV RNA DETECT QUANT (09/04/2019 15:57 EST) HCV RNA Quantitative Undetected Undetected IU/mL 09/05/2019 22:50 EST [facility] Comment: Result in log IU/mL is Undetected. ADDITIONAL INFORMATION The quantification range of this assay is 15 to 100,000,000 IU/mL (1.18 log to 8.00 log IU/mL). Testing was performed using the elke HCV test ([employer] with the elke 6800 System. Test Performed by: [address] [address] Legal Technician: Jorge Luis Andre M.D. Ph.D.; CLIA# [id number] 09/04/2019 15:5 7 EST 09/04/2019 15:57 EST Narrative [facility] - 09/05/2019 22:50 EST Does PT Have a Latex Allergy? NO us Arian Charles MD CHEMISTRY & BLOOD GAS ORDERAB LES Final Result [facility] documented in this encounter Visit Diagnoses Not on filedocumented in this encounter Care Teams Legal Office Administrator Relationship Specialty Start Date End Date Unknown, Provider, PCP - General 10/07/14 12/24/19 documented as of this encounter
--- OUTSIDE RECORDS SUMMARY | 2024-06-21 15:33 | XMS_ITS | Encounter Summary ---
Author Organization [facility] Address [address] [place] [address] Care Team Providers Care Network Engineer Name Role Phone Unknown, Provider Primary Care Provider Unava ilable Encounter Details Date Type Department Care Team (Late st Contact Info) Description 03/04/2015 Historical Results Only [facility] - [facility] Radiology Results [address] [place] [address] Harvey Rivers MD Social History Tobacco Use Types Packs/Day [...] Name Priority Date/Time Associated Diagnosis Comments US SCROTUM WITH LIMITED DUPLEX 03/04/2015 10:02 EDT documented in this encounter Results * US SCROTUM WITH LIMITED DOPPLER (03/04/2015 10:02 EDT) Anatomical Region Laterality Modality Body Other 03/04/2015 10:0 2 EDT Narrative 03/04/2015 10:56 EDT ? EXAM: ULTRASOUND/TESTICULAR DOPPLER ? EX. D/ (1552) ? CLINICAL INFORMATION: ? LEFT TESTICULAR PAIN, ? VARICOCELE ? INDICATION: Left testicular pain. Question varicocele. ? COMPARISON: None. ? TECHNIQUE: Duplex Doppler ultrasound examination of the scrotum was ? performed. ? FINDINGS: ??Both testes are normal in size, shape and echotexture. ? There is symmetric color Doppler blood flow to both testes. No ? intratesticular mass is identified. ? There are bilateral tiny scrotal hydroceles. There are findings ? suspicious for a tiny varicocele lateral to the right testis. The ? right epididymis and left epididymis have normal appearances. ? IMPRESSION: ? 1. Bilateral tiny scrotal hydroceles. ? 2. Findings suspicious for tiny right varicocele. ? REPORT SIGNED IN OTHER VENDOR SYSTEM 03/04/2015 ?Reported By: Mateo Allred MD ? CC: ? Transcribed Date/Time: 03/04/2015 (1056) ? Molding Line Assistant: MATTY ? Printed Date/Time: 12/19/2018 (1139) ? PAGE 1 ? Signed Report ? Procedure Note Mateo Allred MD - 05/15/2019 EXAM: ULTRASOUND/TESTICULAR DOPPLER EX. D/ (1552) CLINICAL INFORMATION: LEFT TESTICULAR PAIN, ? VARICOCELE INDICATION: Left testicular pain. Question varicocele. COMPARISON: None. TECHNIQUE: Duplex Doppler ultrasound examination of the scrotum was performed. FINDINGS: Both testes are normal in size, shape and echotexture. There is symmetric color Doppler blood flow to both testes. No intratesticular mass is identified. There are bilateral tiny scrotal hydroceles. There are findings suspicious for a tiny varicocele lateral to the right testis. The right epididymis and left epididymis have normal appearances. IMPRESSION: 1. Bilateral tiny scrotal hydroceles. 2. Findings suspicious for tiny right varicocele. REPORT SIGNED IN OTHER VENDOR SYSTEM 03/04/2015 Reported By: Mateo Allred MD CC: Transcribed Date/Time: 03/04/2015 (5991) Molding Line Assistant: MATTY Printed Date/Time: 12/19/2018 (9135) PAGE 1 Signed Report Harvey Rivers MD [facility] ORDERABLES Final Result documented in this encounter Visit Diagnoses Not on filedocumented in this encounter Care Teams Network Engineer Relationship Specialty Start Date End Date Unknown, Provider, PCP - General 10/07/14 12/24/19 documented as of this encounter
--- OUTSIDE RECORDS SUMMARY | 2024-06-21 15:33 | XMS_ITS | Encounter Summary ---
Author Organization [facility] Address [address] [place] [address] Care Team Providers Care Bundle Wrapper Name Role Phone Unknown, Provider Primary Care Provider Laura Preciado MD Primary Care Provider [phone] Scarlett Wyman Unavailable [phone] Encounter Details Date Type Department Care Team (Late st Contact Info) Description 09/14/2019 Results Only Imaging [facility] - [facility] Radiology Results [address] [place], [place] [id number] Arian Charles MD Social History Tobacco Use [...] Date/Time Associated Diagnosis Comments US ABDOMEN LIMITED 09/14/2019 7:55 EST documented in this encounter Results * US ABDOMEN LIMITED (09/14/2019 7:55 EST) Anatomical Region Laterality Modality Abdomen, Body Ultrasound 09/14/2019 7:52 EST Narrative 09/14/2019 7:55 EST ? EXAM: ULTRASOUND/RIGHT UPPER QUADRANT ? EX. D/ (0659) ? CLINICAL INFORMATION: ? B18.2 CIRRHOSIS ? R/U FOCAL LESIONS ? RIGHT UPPER QUADRANT ? Signs and Symptoms/Comments: ??B18.2 CIRRHOSIS, RULE OUT FOCAL LESIONS ? Comparison: None ? Technique: Right upper quadrant abdominal ultrasound was performed ? with color Doppler imaging. ? FINDINGS: ? Pancreas: The pancreas is obscured by bowel gas and therefore cannot ? be assessed. ? Liver: The liver is normal in size (measuring 15.6 cm). The liver has ? a mildly coarsened echotexture, which may support the provided ? clinical diagnosis of cirrhosis. No focal suspicious liver lesion is ? visible, however MR would be more sensitive for screening for ? malignancy in the setting of cirrhosis. The main portal vein is ? grossly patent with expected hepatopedal flow. No perihepatic ascites ? is visible. ? Bile Ducts: The common bile duct is mildly prominent, measuring 7.4 ? mm. No significant intrahepatic biliary dilatation is visible. ? Gallbladder: The gallbladder contains no stones. The gallbladder wall ? is normal in thickness (2.8 mm). No pericholecystic fluid is visible. ? No sonographic Bess's sign was elicited. ? Right Kidney: The right kidney is normal in size, measuring 11.8 cm. ? No renal mass is identified. No shadowing calculi are visible. No ? hydronephrosis is present. ? IVC: The visible portion of the proximal IVC is unremarkable. ? IMPRESSION: ? 1. ??Known cirrhosis. No focal liver lesion visible. Please note that ? MR would be more sensitive for screening for malignancy in the ? setting of cirrhosis. ? 2. ??Common bile duct mildly prominent, measuring 7.4 mm. MRCP ? recommended if there is clinical concern for biliary obstruction ? (e.g. jaundice, abnormal LFTs). ? 3. ??Unremarkable gallbladder. ? PAGE 1 ? Signed Report ? (CONTINUED) ? 4. ??Pancreas obscured by bowel gas and therefore cannot be assessed. ? REPORT SIGNED IN OTHER VENDOR SYSTEM 09/14/2019 ?Reported By: Eric Cheema MD ? CC: ? Transcribed Date/Time: 09/14/2019 (0755) ? Winter Sports Manager: ? Printed Date/Time: 09/14/2019 (0756) ? PAGE 2 ? Signed Report ? Procedure Note Eric Cheema MD - 09/14/2019 EXAM: ULTRASOUND/RIGHT UPPER QUADRANT EX. D/ (0659) CLINICAL INFORMATION: B18.2 CIRRHOSIS R/U FOCAL LESIONS RIGHT UPPER QUADRANT Signs and Symptoms/Comments: B18.2 CIRRHOSIS, RULE OUT FOCALLESIONS Comparison: None Technique: Right upper quadrant abdominal ultrasound was performed with color Doppler imaging. FINDINGS: Pancreas: The pancreas is obscured by bowel gas and thereforecannot be assessed. Liver: The liver is normal in size (measuring 15.6 cm). The liverhas a mildly coarsened echotexture, which may support the provided clinical diagnosis of cirrhosis. No focal suspicious liver lesionis visible, however MR would be more sensitive for screening for malignancy in the setting of cirrhosis. The main portal vein is grossly patent with expected hepatopedal flow. No perihepaticascites is visible. Bile Ducts: The common bile duct is mildly prominent, measuring 7.4 mm. No significant intrahepatic biliary dilatation is visible. Gallbladder: The gallbladder contains no stones. The gallbladderwall is normal in thickness (2.8 mm). No pericholecystic fluid isvisible. No sonographic Bess's sign was elicited. Right Kidney: The right kidney is normal in size, measuring 11.8cm. No renal mass is identified. No shadowing calculi are visible. No hydronephrosis is present. IVC: The visible portion of the proximal IVC is unremarkable. IMPRESSION: 1. Known cirrhosis. No focal liver lesion visible. Please notethat MR would be more sensitive for screening for malignancy in the setting of cirrhosis. 2. Common bile duct mildly prominent, measuring 7.4 mm. MRCP recommended if there is clinical concern for biliary obstruction (e.g. jaundice, abnormal LFTs). 3. Unremarkable gallbladder. PAGE 1 Signed Report (CONTINUED) 4. Pancreas obscured by bowel gas and therefore cannot beassessed. REPORT SIGNED IN OTHER VENDOR SYSTEM 09/14/2019 Reported By: Eric Cheema MD CC: Transcribed Date/Time: 09/14/2019 (0755) Winter Sports Manager: Printed Date/Time: 09/14/2019 (0756) PAGE 2 Signed Report Arian Charles MD [facility] ORDERABLES Final Resul t documented in this encounter Visit Diagnoses Not on filedocumented in this encounter Care Teams Bundle Wrapper Relationship Specialty Start Date End Date Unknown, Robert, PCP - General 10/07/14 12/24/19 Laura Ho MD [address] [place] [id number] PCP - General 12/25/19 Scarlett Wyman [address] [address] Electrical Project Engineer Behavioral Care 12/04/21 03/09/23 documented as of this encounter
--- OUTSIDE RECORDS SUMMARY | 2024-06-21 15:33 | XMS_ITS | Encounter Summary ---
Author Organization [facility] Address [address] [place] [address] Care Team Providers Care Prop And Effects Designer Name Role Phone Unavailable Primary Care Provider Unavailabl e Encounter Details Date Type Department Care Team (Latest Contact Info) Description 10/05/2014 22:59 EDT - 10/05/2014 23:59 EDT Hospital Encounter [facility] [address] [place] [address] Unknown, Provider, MD Discharge Disposition: Home or Self Care Social History Tobacco Use Types Packs/Day Years Used Date Smoking Tobacco: Never Assessed Sex and Gender Information Value Date Recorded Sex Assigned at Not on file Legal Sex Male 22:57 EDT Gender Identity Not on file Sexual Orientation Not on file documented as of this encounter Discharge Disposition Disposition Code Departure Means Destination Home or Self Jail documented in this encounter Plan of Treatment Not on file documented as of this encounter Visit Diagnoses Not on filedocumented in this encounter
--- OUTSIDE RECORDS SUMMARY | 2024-06-21 15:33 | XMS_ITS ---
Author Organization [facility] Address [address] [place] [address] Care Team Providers Care Shoe Maker Name Role Phone Laura Ho MD Primary Care Provider [phone] Addiction Medicine Status:Discharged (Closed) Start date:10/20/2023 Enrollment date:10/20/2023 End date:04/24/2024 Close reason:Therapy discontinued - patient choice Linked medications:buprenorphine (Discontinued) Linked problems:Opioid use disorder (Active) Overview [facility]: [phone] Continued Care and Services Coordination
--- OUTSIDE RECORDS SUMMARY | 2024-06-21 15:33 | XMS_ITS | Encounter Summary ---
Author Organization [facility] Address [address] [place] [id number] Care Team Providers Care Certified Personal Trainer Name Role Phone Unknown, Provider Primary Care Provider Unava ilable Encounter Details Date Type Department Care Team (Late st Contact Info) Description 01/05/2017 Historical Results Only [facility] [place] [address] Arian Charles MD Social History Tobacco Use [...] Name Priority Date/Time Associated Diagnosis Comments HEPATITIS B CORE ANTIBODY (TOTAL) Routine 01/05/2017 8:48 EDT documented in this encounter Results * HEPATITIS B CORE ANTIBODY (TOTAL) (01/05/2017 8:48 EDT) Hepatitis B Core Ab, Total Negative NEGAT 01/08/2017 16:45 EDT [facility] Comment: New methodology in use 10/26/16. Test Performed by: [place] [address] Equip Tech: Santos Ram MD , Ph D 01/05/2017 8:48 EDT 01/05/2017 8:48 EDT Narrative [facility] - 01/08/2017 16:45 EDT Does PT Have a Latex Allergy? NO us Arian Charles MD CHEMISTRY & BLOOD GAS ORDERAB LES Final Result Performing Organization Address City/State/[facility] Co de Phone Number [facility] documented in this encounter Visit Diagnoses Not on filedocumented in this encounter Care Teams Certified Personal Trainer Relationship Specialty Start Date End Date Unknown, Provider, PCP - General 10/07/14 12/24/19 documented as of this encounter
--- OUTSIDE RECORDS SUMMARY | 2024-06-21 15:33 | XMS_ITS | Encounter Summary ---
Author Organization [facility] Address [address] [place] [address] Care Team Providers Care Brush Trimming Machine Setter Name Role Phone Unknown, Provider Primary Care Provider Unava ilable Encounter Details Date Type Department Care Team (Late st Contact Info) Description 01/05/[address] [facility] [place] [address] Arian Charles MD Social History Tobacco Use [...] Name Priority Date/Time Associated Diagnosis Comments HCV FIBROSURE - [facility] Routine 01/05/2017 8:48 EDT documented in this encounter Results * (ABNORMAL) HCV FIBROSURE - CV (01/05/2017 8:48 EDT) [id number] IN 350(A) 106 - 279 mg/dL 01/08/2017 16:45 EDT [facility] APOLIPOPROTEIN A1 101 94 - 176 mg/dL 01/08/2017 16:45 EDT [facility] FIBROSIS INTERPRETATION SEE BELOW () 01/08/2017 16:45 EDT [facility] Comment: advanced fibrosis Fibro Test Score ?? Metavir Score 0.00-0.21 ?F0 ? no fibrosis 0.22-0.27 ?F0-F1 0.28-0.31 ?F1 ? minimal fibrosis 0.32-0.48 ?F1-F2 0.49-0.58 ?F2 ? moderate fibrosis 0.59-0.72 ?F3 ? advanced fibrosis 0.73-0.74 ?F3-F4 0.75-1.00 ?F4 ? severe fibrosis ALT 96(A) 9 - 46 U/L 01/08/2017 16:45 [facility] TOTAL BILIRUBIN - [facility] 0.5 0.2 - 1.2 mg/dL 01/08/2017 16:45 [facility] GGT 86 3 - 90 U/L 01/08/2017 16:45 [facility] FOOTNOTE - [facility] SEE BELOW () 7 16:45 [facility] Comment: The reliability of results is dependent on compliance with the preanalytical and analytical conditions recommended by [employer]. The tests have to be deferred for: acute hemolysis, acute hepatitis, acute inflammation, extra hepatic cholestasis. The advice of a specialist should be sought for interpretation in chronic hemolysis and Gilbert's syndrome. The test interpretation is not validated in liver transplant patients. Isolated extreme values of one of the components should lead to caution in interpreting the results. In case of discordance between a biopsy result and a test, it is recommended to seek the advice of a specialist. The causes of these discordances could be due to a flaw of the test or to a flaw in the biopsy: i.e. a liver biopsy has a 33% variability rate for one fibrosis stage. FibroTest is interpretable for chronic hepatitis B and C, alcoholic and non alcoholic steatosis. ActiTest is interpretable for chronic hepatitis B and C. The performance characteristics have been determined by [facility]. It has not been cleared or approved by the U.S. Food and Drug Administration. Performance characteristics refer to the analytical performance of the test. [employer], the associated logo, [employer] and all associated [employer] iverson are the registered trademarks of [employer]. All third alliance party iverson - (R) and (TM) - are the property of their respective owners. (C) 2679-1861 [employer]. All rights reserved. Test Performed by: [facility] [id number] [place] [address] REFERENCE ID - [facility] [id number] () 01/08 16:45 EDT [facility] FIBROSIS SCORE 0.73 () 01/08/2017 16:45 EDT [facility] FIBROSIS STAGE - [facility] F3-F4 () 01/08/2017 16:45 [facility] HAPTOGLOBIN 60 43 - 212 mg/dL 01/08/2017 16:45 [facility] NECROINFLAMMAT ACT GRADE - [facility] A3 () 01/08/2017 16:45 EDT [facility] NECROINFLAMMAT ACT SCORE - [facility] 0.70 () 01/08/2017 16:45 T [facility] NECROINFLAMMAT INTERPRETATION - [facility] SEE BELOW () 01/08/2017 16:45 EDT [facility] Comment: severe activity ActiTest Score ? Metavir Score 0.00-0.17 ?A0 ? no activity 0.18-0.29 ?A0-A1 0.30-0.36 ?A1 ? minimal activity 0.37-0.52 ?A1-A2 0.53-0.60 ?A2 ? significant activity 0.61-0.62 ?A2-A3 0.63-1.00 ?A3 ? severe activity 01/05/2017 8:48 EDT 01/05/2017 8:48 EDT [facility] - 01/08/2017 16:45 EDT Does PT Have a Latex Allergy? NO us Arian Charles MD CHEMISTRY & BLOOD GAS ORDERAB LES Final Result [facility] documented in this encounter Visit Diagnoses Not on filedocumented in this encounter Care Teams Brush Trimming Machine Setter Relationship Specialty Start Date End Date Unknown, Provider, PCP - General 10/07/14 12/24/19 documented as of this encounter
--- OUTSIDE RECORDS SUMMARY | 2024-06-21 15:33 | XMS_ITS | Encounter Summary ---
Author Organization [facility] Address [address] [place] [address] Care Team Providers Care Glass Installer Name Role Phone Laura Ho MD Primary Care Provider [phone] Encounter Details Date Type Department Care Team (Latest Contact Info) Description 10/20/2023 Specialty Pharmacy [facility] [address] [place], [place] [id number] Clara Carpenter RPH Set up initial fill for Addiction Medicine, Patient Education for Addiction Medicine, Prospective Review for Addiction Medicine Social History Tobacco Use [...] documented in this encounter Progress Notes * Cecilia Warren - 10/20/2023 0952 EDT Prescription Receipt by [facility] Date Received: 10/19/23 Medication: Brixadi 96mg Provider: Gia Enriquez MD Provider Phone number: [phone] [facility] Comments: requested ins info, chart note/med list, allergies PA Status: Pending Prescription copy available in scans: YES Relevant clinical documents in scans (if applicable): requested! Routed to appropriate Pharmacist: YES [facility] Special[facility]: [phone] * Clara Carpenter, [facility] - 10/20/2023 0952 EDT Harvey Espinosa is a 43 y.o. 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 clinical review of initial prescription for Buprenorphine ER injection Treatment information: Prescriber: Gia Enriquez Prescriber Contact Info: [facility] [phone] Clinic note in Epic scans: Yes Date: 10/20/23 Sublingual Buprenorphine Naive: No Transmucosal Buprenorphine Dose: 20 mg/day Buprenorphine ER Formulation: Brixadi Initial Dose: 96 mg subcutaneous monthly REMS requirements met: Yes Naloxone prescribed:N/A Treatment goals: Engage in OUD treatment, reduce cravings, avoid withdrawal symptoms Medication Management Notes: Patient will be administered the medication at [facility] clinic. To contact the clinic call: [phone] Baseline labs: Not available - outside provider, outside lab Current medications: Outpatient Encounter Medications as of 10/20/2023 Medication Sig [DISCONTINUED] acyclovir (ZOVIRAX) 200 mg capsule TAKE 1 CAPSULE BY MOUTH DAILY INCREASINT DOSE NEEDED FOR INCREASED SYMPTOMS UP TO 2 CAPSULES DAILY [DISCONTINUED] alendronate (FOSAMAX) 70 mg tablet ARIPiprazole (ABILIFY MAINTENA) 400 mg suspension Inject 400 mg into the muscle every 28 days. buprenorphine (BRIXADI) 96 mg/0.27 mL solution, extended rel syringe Inject 96 mg into the skin every 28 days. Daily Max: 96 mg busPIRone (BUSPAR) 5 mg tablet Take 3 Tablets by mouth at bedtime. [DISCONTINUED] [id number] 0.3 mg/24 hr patch [DISCONTINUED] cloNIDine HCL (CATAPRES) 0.1 mg tablet Take 1 Tablet by mouth. [DISCONTINUED] Dexmethylphenidate 30 mg capsule,ER biphasic 50-50 Take 30 mg by mouth daily. FOCALIN XR 30 mg capsule,ER biphasic 50-50 Take by mouth daily. lamoTRIgine (LAMICTAL) 100 mg tablet Take 2 Tablets by mouth at bedtime. lamoTRIgine (LAMICTAL) 25 mg tablet TK 2 TS PO WITH 100MG T QD lithium (LITHOBID) 300 mg CR tablet Take 450 mg by mouth daily. nicotine (NICODERM CQ) 21 mg/[address] 1 Patch onto the skin daily. OLANZapine (ZYPREXA) 5 mg tablet Take 1 Tablet by mouth 3 times daily as needed. Prazosin (MINIPRESS) 1 mg capsule Take 2 Capsules by mouth at bedtime. [DISCONTINUED] QUEtiapine (SEROQUEL) 400 mg tablet TK 1 T PO D HS [DISCONTINUED] SUBOXONE 8-2 mg sublingual film TAKE 2 FILMS UNDER THE TONGUE DAILY [DISCONTINUED] tamsulosin (FLOMAX) 0.4 mg capsule take 1 capsule by mouth daily No facility-administered encounter medications on file as of 10/20/2023. Allergies: reviewed Drug Interactions and Management Plan: Medication list source: Epic chart review, Amicrobe information, VPMS, and Chart notes in scans DDI with current medication list checked Drug-drug interactions identified: lithium, lamotrigine, prazosin, abilify, focalin, olanzaprine - no intervention Comorbidities: reviewed Coinfection/Vaccination Assessment: Not available - outside provider, outside lab Baseline Outcome: Number of admissions at [facility] related to OUD in last 6 months: 0 Clara Carpenter, PharmD (she/her) School Janitor Pharmacist [facility] 10/20/2023 documented in this encounter Plan of Treatment Not on file documented as of this encounter Visit Diagnoses Not on filedocumented in this encounter Discontinued Medications Medication Sig Discontinue Reason Start Date End Da te acyclovir (ZOVIRAX) 200 mg capsule TAKE 1 CAPSULE BY MOUTH DAILY INCREASINT DOSE NEEDED FOR INCREASED SYMPTOMS UP TO 2 CAPSULES DAILY Therapy completed 11/16/2019 10/20/2023 alendronate (FOSAMAX) 70 mg tablet Therapy completed 12/22/2019 10/20/2023 [id number] 0.3 mg/24 hr patch Therapy completed 11/26/2019 10/20/2023 cloNIDine HCL (CATAPRES) 0.1 mg tablet Take 1 Tablet by mouth. Therapy completed 10/20/2023 Dexmethylphenidate 30 mg capsule,ER biphasic 50-50 Take 30 mg by mouth daily. Therapy completed 10/20/2023 QUEtiapine (SEROQUEL) 400 mg tablet TK 1 T PO D HS Therapy completed 10/29/2019 10/20/2023 SUBOXONE 8-2 mg sublingual film TAKE 2 FILMS UNDER THE TONGUE DAILY Alternate therapy 12/04/2019 10/20/2023 tamsulosin (FLOMAX) 0.4 mg capsule take 1 capsule by mouth daily Therapy completed 06/13/2019 10/20/2023 documented as of this encounter Historical Medications * This list may reflect changes made after this encounter. OLANZapine (ZYPREXA) 5 mg tablet Take 1 Tablet by mouth 3 times daily as needed. ARIPiprazole (ABILIFY MAINTENA) 400 mg suspension Inject 400 mg into the muscle every 28 days. nicotine (NICODERM CQ) 21 mg/[address] 1 Patch onto the skin daily. buprenorphine (BRIXADI) 96 mg/0.27 mL solution, extended rel syringe Inject 96 mg into the skin every 28 days. Daily Max: 96 mg 04/24/2024 added in this encounter Care Teams Glass Installer Relationship Specialty Start Date End Date Laura Ho MD [address] [place] [id number] PCP - General 12/25/19 documented as of this encounter
--- OUTSIDE RECORDS SUMMARY | 2024-06-21 15:33 | XMS_ITS | Encounter Summary ---
Author Organization [facility] Address [address] [place] [address] Care Team Providers Care Civil Draftsman Name Role Phone Laura Ho MD Primary Care Provider [phone] Encounter Details Date Type Department Care Team (Latest Contact Info) Description 12/14/2023 Specialty Pharmacy [facility] [address] [place], [place] [id number] Clara Carpenter RPH Refill Coordination Outreach for [...] on filedocumented in this encounter Care Teams Civil Draftsman Relationship Specialty Start Date End Date Laura Ho MD [address] [place] [address] PCP - General 12/25/19 documented as of this encounter
--- OUTSIDE RECORDS SUMMARY | 2024-06-21 15:33 | XMS_ITS | Encounter Summary ---
Author Organization [facility] Address [address] [place] [address] Care Team Providers Care Watch Caser Name Role Phone Unknown, Provider Primary Care Provider Unava ilable Encounter Details Date Type Department Care Team (Late st Contact Info) Description 10/05/2014 Historical Results Only [facility] Radiology Results [address] [place] [address] Santos Olmos MD Social History Tobacco Use Types Packs/Day [...] Name Priority Date/Time Associated Diagnosis Comments CT HEAD WO CONTRAST 10/05/2014 0:37 EDT documented in this encounter Results * CT HEAD WO CONTRAST (10/05/2014 0:37 EDT) Anatomical Region Laterality Modality Head Other 10/05/2014 0:37 EDT Narrative 10/05/2014 8:57 EDT ? EXAM: CAT SCAN/HEAD WITHOUT CONTRAST ?EX. D/ (0037) ? CLINICAL INFORMATION: ? WORSE HEADACHE EVER; GLOBAL ? Patient Name: Harvey Espinosa ? Date of : 1980 ? Exam: CT BRAIN/HEAD ? Date of Exam: 10/05/2014 ? Referring Physician: MELANIE STANLEY ? Clinical History: worse perez ever, global ? FINAL REPORT ? EXAM: CT Head Without Intravenous Contrast. ? CLINICAL HISTORY: 34 years old, male; Worse PEREZ ever, global ? TECHNIQUE: Axial computed tomography images of the head/brain without ? intravenous contrast. ? COMPARISON: None currently available. ? Findings: No intracranial hemorrhage, mass-effect, midline shift or ? hydrocephalus. No skull fractures seen. Mild mucosal thickening in the ? right maxillary sinus. The remainder of the facial sinuses appear ? well-aerated. The mastoid air cells and middle ears are well aerated. ? IMPRESSION: ? No acute intracranial process seen. ? Dictated, Authenticated, and ?Reported By: Jairo Gonzalez MD ? CC: ? Transcribed Date/Time: 10/05/2014 (0857) ? Rubber Stamp Assembler: KASHMIR ? Printed Date/Time: 12/12/2018 (1101) ? PAGE 1 ? Signed Report ? Procedure Note Jairo Gonzalez - 05/15/2019 EXAM: CAT SCAN/HEAD WITHOUT CONTRAST EX. D/ (0037) CLINICAL INFORMATION: WORSE HEADACHE EVER; GLOBAL Patient Name: Harvey Espinosa Date of : 1980 Exam: CT BRAIN/HEAD Date of Exam: 10/05/2014 Referring Physician: MELANIE STANLEY Clinical History: worse perez ever, global FINAL REPORT EXAM: CT Head Without Intravenous Contrast. CLINICAL HISTORY: 34 years old, male; Worse PEREZ ever, global TECHNIQUE: Axial computed tomography images of the head/brainwithout intravenous contrast. COMPARISON: None currently available. Findings: No intracranial hemorrhage, mass-effect, midline shift or hydrocephalus. No skull fractures seen. Mild mucosal thickening inthe right maxillary sinus. The remainder of the facial sinuses appear well-aerated. The mastoid air cells and middle ears are well aerated. IMPRESSION: No acute intracranial process seen. Dictated, Authenticated, and Reported By: Jairo Gonzalez MD CC: Transcribed Date/Time: 10/05/2014 (0857) Rubber Stamp Assembler: KASHMIR Printed Date/Time: 12/12/2018 (1107) PAGE 1 Signed Report Santos Olmos MD IMG CT ORDERABLES Final Result documented in this encounter Visit Diagnoses Not on filedocumented in this encounter Care Teams Watch Caser Relationship Specialty Start Date End Date Unknown, Provider, PCP - General 10/07/14 12/24/19 documented as of this encounter
--- OUTSIDE RECORDS SUMMARY | 2024-06-21 15:33 | XMS_ITS | Encounter Summary ---
Author Organization [facility] Address [address] [place] [address] Care Team Providers Care Cushion Worker Name Role Phone Unknown, Provider MD Primary Care Provider Unava ilable Reason for Visit * (Routine) - Receiving Office to Obtain Authorization Specialty Diagnoses / Procedures Referred By Govind townsend Referred To Contact Procedures XR OUTSIDE IMAGES MSK Unknown, Provider, Referral ID Status Reason Start Date Expiration Date Visits Requested Visits Authorized [id number] Receiving Office to Obtain Authorization 08/22/2019 1 1 Encounter Details Date Type Department Care Team (Latest Contact Info) Description 08/08/2019 - 08/08/2019 23:59 EST Hospital Encounter [facility] Radiology - Main [place] [address] [place] [address] Discharge Disposition: Home or Self Care Social History Tobacco Use Types Packs/Day Years Used Date Smoking Tobacco: Never Assessed Sex and Gender Information Value Date Recorded Sex Assigned at Not on file Legal Sex Male 22:57 EDT Gender Identity Not on file Sexual Orientation Not on file documented as of this encounter Medications at Time of Discharge tamsulosin (FLOMAX) 0.4 mg capsule take 1 capsule by mouth daily 06/13/2019 10/20/2023 documented as of this encounter Discharge Disposition Disposition Code Departure Means Destination Home or Self Care documented in this encounter Plan of Treatment Not on file documented as of this encounter Procedures Procedure Name Priority Date/Time Associated Diagnosis Comments XR OUTSIDE IMAGES MSK Routine 08/22/2019 21:22 EST documented in this encounter Results * XR OUTSIDE IMAGES MSK (08/22/2019 21:22 EST) Sherwin NARVAEZ - 08/22/2019 21:22 EST This is a non-reportable exam. us Provider Unknown MD CID OTHER IMAGING ORDERABLES Final Result Performing Organization Address City/State/[facility] [place] Phone Number [facility] documented in this encounter Visit Diagnoses Not on filedocumented in this encounter Care Teams Cushion Worker Relationship Specialty Start Date End Date Unknown, Provider, PCP - General 10/07/14 12/24/19 documented as of this encounter
--- OUTSIDE RECORDS SUMMARY | 2024-06-21 15:33 | XMS_ITS | Encounter Summary ---
Author Organization [facility] Address [address] [place] [address] Care Team Providers Care Rand Maker Name Role Phone Unknown, Provider Primary Care Provider Unava ilable Encounter Details Date Type Department Care Team (Late st Contact Info) Description 02/21/2019 Historical Results Only [facility] - Main [address] [address] Arian Charles MD Social History Tobacco Use [...] Diagnosis Comments HEPATITIS C DIAG PROGRESSIVE - [facility] Routine 02/21/2019 13:57 EDT PROTIME Routine 02/21/2019 13:57 EDT PROTIME Routine 02/21/2019 13:57 EDT documented in this encounter Results * PROTIME (02/21/2019 13:57 EDT) Pathologist [facility] PROTHROMBIN TIME - [facility] 10.8 10.3 - 13.4 SECONDS 02/21/2019 15:26 EDT [facility] 02/21/2019 13:5 7 EDT 02/21/2019 14:05 EDT Narrative [facility] - 03/27/2019 16:21 EDT Does PT Have a Latex Allergy? NO us Arian Charles MD HEMATOLOGY & PF4 ORDERABLES F inal Result Performing Organization Address [facility]/ZIP Co de Phone Number [facility] * PROTIME (02/21/2019 13:57 EDT) [facility] INR [facility] 1.0 0.9 - 1.1 02/21/2019 15:26 EDT [facility] Comment: Moderate Intensity Coumadin INR = 2.0-3.0 Adjustments in anticoagulant therapy dose should be based upon the INR and NOT the Protime. 02/21/2019 13:5 7 EDT 02/21/2019 14:05 EDT Narrative [facility] - 03/27/2019 16:21 EDT Does PT Have a Latex Allergy? NO Arian Charles MD HEMATOLOGY & PF4 ORDERABLES F inal Result Performing Organization Address [facility] Co de Phone Number [facility] * HEPATITIS C DIAG PROGRESSIVE [facility] (02/21/2019 13:57 EDT) [facility] HEP C RNA BY [facility] [id number] Undetected IU/mL 02/26/2019 20:02 EDT [facility] Comment: Result in log IU/mL is 6.01. ADDITIONAL INFORMATION The quantification range of this assay is 15 to 100,000,000 IU/mL (1.18 log to 8.00 log IU/mL). Testing was performed using the elke HCV test ([employer] with the elke [id number] System. Test Performed by: [facility] [address] [place] [address] [facility] 6.01 02/23/2019 15:49 EDT [facility] 02/21/2019 13:5 7 EDT 02/21/2019 14:05 EDT Narrative [facility] - 02/26/2019 20:02 EDT HEP C GT REFLEXED 02-23-19 us Arian Charles MD CHEMISTRY & BLOOD GAS ORDERAB LES Final Result [facility] documented in this encounter Visit Diagnoses Not on filedocumented in this encounter Care Teams Rand Maker Relationship Specialty Start Date End Date Unknown, Provider, PCP - General 10/07/14 12/24/19 documented as of this encounter
--- OUTSIDE RECORDS SUMMARY | 2024-06-21 15:33 | XMS_ITS | Encounter Summary ---
Author Organization [facility] Address [address] [place] [address] Care Team Providers Care Ict Analyst Name Role Phone Unknown, Provider MD Primary Care Provider Unava ilable Reason for Visit * (Routine) - Receiving Office to Obtain Authorization Specialty Diagnoses / Procedures Referred By Govind townsend Referred To Contact Procedures MR OUTSIDE IMAGES MSK Unknown, Provider, Referral ID Status Reason Start Date Expiration Date Visits Requested Visits Authorized [id number] Receiving Office to Obtain Authorization 08/22/2019 1 1 Encounter Details Date Type Department Care Team (Latest Contact Info) Description 08/15/2019 - 08/15/2019 23:59 EST Hospital Encounter [facility] Radiology - [address] [place] [address] Discharge Disposition: Home or Self Care Social [...] Procedure Name Priority Date/Time Associated Diagnosis Comments MR OUTSIDE IMAGES MSK Routine 08/22/2019 21:19 EST documented in this encounter Results * MR OUTSIDE IMAGES MSK (08/22/2019 21:19 EST) Sherwin NARVAEZ - 08/22/2019 21:19 EST This is a non-reportable exam. us Provider Unknown MD CID OTHER IMAGING ORDERABLES Final Result Performing Organization Address City/State/[facility] Co me Phone Number [facility] documented in this encounter Visit Diagnoses Not on filedocumented in this encounter Care Teams Ict Analyst Relationship Specialty Start Date End Date Unknown, Provider, PCP - General 10/07/14 12/24/19 documented as of this encounter
--- OUTSIDE RECORDS SUMMARY | 2024-06-21 15:33 | XMS_ITS | Encounter Summary ---
Author Organization [facility] Address [address] [place] [address] Care Team Providers Care Leave Manager Name Role Phone Unknown, Provider MD Primary Care Provider Unava ilable Encounter Details Date Type Department Care Team (Latest Contact Info) Description 03/03/2015 15:48 EDT - 03/03/2015 23:59 EDT Hospital Encounter [facility] [address] [place] [address] Unknown, ProviderMD Discharge Disposition: Home or Self Care Social History Tobacco Use Types Packs/Day Years Used Date Smoking Tobacco: Never Assessed Sex and Gender Information Value Date Recorded Sex Assigned at Not on file Legal Sex Male 22:57 EDT Gender Identity Not on file Sexual Orientation Not on file documented as of this encounter Discharge Disposition Disposition Code Departure Means Destination Home or Self [facility] documented in this encounter Plan of Treatment Not on file documented as of this encounter Visit Diagnoses Not on filedocumented in this encounter Care Teams Leave Manager Relationship Specialty Start Date End Date Unknown, ProviderMD PCP - General 10/07/14 12/24/19 documented as of this encounter
--- OUTSIDE RECORDS SUMMARY | 2024-06-21 15:33 | XMS_ITS | Encounter Summary ---
Author Organization [facility] Address [address] [place] [address] Care Team Providers Care County Director Welfare Name Role Phone Unknown, Provider Primary Care Provider Unava ilable Encounter Details Date Type Department Care Team (Late st Contact Info) Description 03/03/2015 Historical Results Only [facility] Radiology Results [address] [place], [place] [address] Harvey Rivers MD Social History Tobacco Use [...] on filedocumented in this encounter Care Teams County Director Welfare Relationship Specialty Start Date End Date Unknown, ProviderMD PCP - General 10/07/14 12/24/19 documented as of this encounter
--- OUTSIDE RECORDS SUMMARY | 2024-06-21 15:33 | XMS_ITS | Encounter Summary ---
Author Organization [facility] Address [address] [place] [address] Care Team Providers Care Transactional Paralegal Name Role Phone Laura Ho MD Primary Care Provider [phone] Reason for Visit * Reason Comments New Patient Visit EMG/NCS 2UE's Numbness Both Hands Encounter Details Date Type Department Care Team (Late st Contact Info) Description 12/25/2019 14:[address] [facility] [address] [place] [address] Ignacio Ragsdale MD [address] [place] [id number] Carpal tunnel syndrome, bilateral (Primary Dx); Median neuropathy of both upper extremities; Ulnar neuropathy at wrist, right Social History Tobacco Use Types Packs/Day Years [...] 14:08 EDT documented as of this encounter Last Filed Vital Signs Vital Sign Reading Time Taken Comments Blood Pressure 108/52 12/25/2019 1415 EDT Pulse 68 12/25/2019 1415 EDT Temperature - - Respiratory Rate 20 12/25/2019 1415 EDT Oxygen Saturation - - Inhaled Oxygen Concentration - - Weight - - Height 185.4 cm (6' 1) 12/25/2019 1415 EDT Body Mass Index - - documented in this encounter Functional Status * Is this [...] documented in this encounter Progress Notes * Ignacio Ragsdale MD - 12/25/2019 1400 EDT [facility] PATIENT NAME: Harvey Espinosa PATIENT : 1980 PCP: Laura Ho DATE OF SERVICE: 12/25/2019 CHIEF COMPLAINT: EMG/NCS 2UE's, c/o bilateral hand numbness, wrist pain HISTORY OF PRESENT ILLNESS Harvey Espinosa is a 39 y.o.right handed male with history of Paget's disease of bone, mental health issues, previous right hand injury in which she sustained a penetrating metal laceration that was never removed. He presents now for neurophysiologic studies to further evaluate complaints of bilateral hand numbness and pain that began approximately 6 to 7 years ago. He has numbness of the fifth digit all the time, sometimes the fourth digit is also involved. He indicates that both hands go numbfollowing the entire. He has no neck pain, no radicular symptoms. There has been no diurnal variation. He has no history of diabetes, thyroid disease, or rheumatoid arthritis. 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 He has had no loss of strength. He has no similar symptoms in the lower extremities. He feels like his right hand is most involved. He indicates that his hands are often swollen although today they areless so. He has had no discoloration, no peripheral cyanosis, and no history of Raynaud's phenomena. PAST MEDICAL HISTORY Past Medical History: Diagnosis Date ??? Bipolar affect, depressed (HCC-CMS) ??? Paget's disease of the bone ??? Schizo affective schizophrenia (HCC-CMS) ??? Schizophrenia, schizoaffective (HCC-CMS) PAST SURGICAL HISTORY History reviewed. No pertinent surgical history. FAMILY HISTORY family history is not on file. SOCIAL HISTORY reports that he has been smoking cigarettes. He has a 60.00 pack-year smoking history. He has neverused smokeless tobacco. He reports that he drinks about 16.0 standard drinks of alcohol per week. He reports that he has current or past drug history. Drug: Marijuana. Frequency: 7.00 times per week. ALLERGIES Allergies Allergen Reactions ??? Penicillins CURRENT MEDICATIONS Current Outpatient Medications Medication Sig Dispense Refill ??? acyclovir (ZOVIRAX) 200 mg capsule TAKE 1 CAPSULE BY MOUTH DAILY INCREASINT DOSE NEEDED FOR INCREASED SYMPTOMS UP TO 2 CAPSULES DAILY ??? alendronate (FOSAMAX) 70 mg tablet ??? busPIRone (BUSPAR) 5 mg tablet TAKE 1 TABLET AT MIDDAY - TAKE ADDITIONAL DAILY NEEDED FOR INCREASED ANXIETY ??? [id number] 0.3 mg/24 hr patch ??? cloNIDine HCL (CATAPRES) 0.1 mg tablet Take 0.1 mg by mouth. ??? Dexmethylphenidate 30 mg capsule,ER biphasic 50-50 Take 30 mg by mouth daily. ??? FOCALIN XR 30 mg capsule,ER biphasic 50-50 Take by mouth daily. ??? lamoTRIgine (LAMICTAL) 100 mg tablet TAKE 1 TABLET DAILY WITH TWO 25MG TABLETS ??? lamoTRIgine (LAMICTAL) 25 mg tablet TK 2 TS PO WITH 100MG T QD ??? lithium (LITHOBID) 300 mg CR tablet TAKE 3 TABLETS AT BEDTIME - RETURN TO 4 IF WORSENING SYMPTOMS ??? Prazosin (MINIPRESS) 1 mg capsule ??? QUEtiapine (SEROQUEL) 400 mg tablet TK 1 T PO D HS ??? SUBOXONE 8-2 mg sublingual film TAKE 2 FILMS UNDER THE TONGUE DAILY ??? tamsulosin (FLOMAX) 0.4 mg capsule take 1 capsule by mouth daily No current facility-administered medications for this visit. REVIEW OF SYSTEMS: Complete 10-point ROS performed as noted in HPI and scanned patient questionnaire. PHYSICAL EXAMINATION BP 108/52 Pulse 68 Resp 20 Ht 185.4 cm (73) NECK: Supple, no meningismus. Has full range of motion of the head and neck with flexion, extension, and lateral rotation. Lhermitte's is negative. No cervical paraspinal muscle spasm. No spasm of the superior margin of the trapezius on either side. SHOULDERS: Has full range of motion with internal and external rotation. No clicks or crepitus. No suprascapular notch tenderness. No scapular winging with the arms outstretched forward or laterally. EXTREMITIES: Tinel's is negative at the medial epicondyle and the volar wrist bilaterally. No tenderness to percussion at the radial styloid process on the left but he is tender on the right where hesustained a penetrating metal injury many years ago. There is no tenderness at the ulnar head on either side. Phalen's is negative. No palpable ganglion cysts, but he does have a nontender bony prominence on the dorsum of the right hand over the third metacarpal bone, approximately midshaft in location. He has no signs of Raynaud's phenomena. There is no peripheral edema or cyanosis, and he has no trophic change. NEUROLOGIC EXAM Motor: Normal muscle bulk and supple tone throughout. No thenar or dorsal interosseous atrophy. No abnormal spontaneous movements. No rest or action tremor. No pronator drift. UPPER Right Left Shoulder shrug 5/5 5/5 Shoulder abduction 5/5 5/5 Shoulder internal rotation 5/5 5/5 Shoulder external rotation 5/5 5/5 Scapular winging None None Forearm flexion 5/5 5/5 Forearm extension 5/5 5/5 Forearm pronation 5/5 5/5 Forearm supination 5/5 5/5 Wrist flexion 5/5 5/5 Wrist extension 5/5 5/5 Finger flexion 5/5 5/5 Finger extension 5/5 5/5 Finger abduction 5/5 5/5 Finger adduction 5/5 5/5 Abductor pollicis brevis 5/5 5/5 Opponens pollicis 5/5 5/5 Reflexes: Right Left Biceps C5-6 2/4 2/4 BR C5-6 2/4 2/4 Triceps C7-8 2/4 2/4 Sensation: Hypoesthesia to pin at Right D-I,II,III & D-V sparing the area over the thenar eminence. He has hypoesthesia to pin on the left at D-V. EMG/NCS REPORT: Nerve Conduction Studies: There is prolongation of the median sensory nerve action potential peak latency bilaterally at 4.7 ms on the left, 4.8 ms on the right (N<4.0 ms), and there is prolongation of the right ulnar sensory nerve action potential on the right at 5.6 ms (N<4.0 ms). Left ulnar sensory nerve action potential peak latency is normal. Radial sensory nerve action potential peak latencies are normal bilaterally. There is prolongation of the median nerve compound motor action potential distal latency bilaterally at 5.2 ms on the right, 5.9 ms on the left (N<4.2 ms). Median conduction velocities are normal. Ulnar motor nerve conduction studies were normal bilaterally. Electromyography: Concentric needle electrodes were used to study select muscles of both upper extremities. All muscles studied demonstrated complete electrical silence at rest with no spontaneous activity. With volition, motor units were normal in configuration with no large amplitude or polyphasic money potentials seen. With maximum voluntary effort, there was full recruitment with complete interference pattern throughout. Impression: 1. Bilateral median neuropathy with no active or acute denervation change in any of themedian innervated muscles of the forearm or hand. 2. Right ulnar sensory neuropathy. Ulnar motor nerve conduction studies were normal bilaterally. (See attached EMG/NCS report with data sheets and waveform sheets.) ASSESSMENT: 1. Bilateral Median Neuropathy: In the absence of any active or acute denervation change, he may respond to splinting. He will be discussing this further with orthopedics when he is seen in follow-up. Symptoms have been longstanding and if significantly interfering with his ADLs, may possibly benefi t from local corticosteroid injection or eventually carpal tunnel release. 2. Right ulnar sensory neuropathy. Motor nerve conduction studies were normal. I suspect these findings may be related to inadvertent pressure of the forearm on hard surface such as arm chairs, resting on a desktop or tabletop when using computer or when sitting at a table. PLAN: F/u with orthopedics hand surgery. RV PRN Ignacio Ragsdale MD documented in this encounter Plan of Treatment Not on file documented as of this encounter Visit Diagnoses Diagnosis Carpal tunnel syndrome, bilateral- Primary Carpal tunnel syndrome Median neuropathy of both upper extremities Other lesion of median nerve Ulnar neuropathy at wrist, right documented in this encounter Historical Medications * This list may reflect changes made after this encounter. lithium (LITHOBID) 300 mg CR tablet Take 450 mg by mouth daily. 11/23/2019 FOCALIN XR 30 mg capsule,ER biphasic 50-50 Take by mouth daily. 12/06/2019 busPIRone (BUSPAR) 5 mg tablet Take 3 Tablets by mouth at bedtime. 12/14/2019 lamoTRIgine (LAMICTAL) 25 mg tablet TK 2 TS PO WITH 100MG T QD 11/29/2019 lamoTRIgine (LAMICTAL) 100 mg tablet Take 2 Tablets by mouth at bedtime. 12/06/2019 Prazosin (MINIPRESS) 1 mg capsule Take 2 Capsules by mouth at bedtime. 12/20/2019 tamsulosin (FLOMAX) 0.4 mg capsule take 1 capsule by mouth daily 06/13/2019 4 SUBOXONE 8-2 mg sublingual film TAKE 2 FILMS UNDER THE TONGUE DAILY 12/04/2019 4 alendronate (FOSAMAX) 70 mg tablet 12/22/2019 4 QUEtiapine (SEROQUEL) 400 mg tablet TK 1 T PO D HS 10/29/2019 4 Dexmethylphenida te 30 mg capsule,ER biphasic 50-50 Take 30 mg by mouth daily. 4 [id number] 0.3 mg/24 hr patch 11/26/2019 4 cloNIDine HCL (CATAPRES) 0.1 mg tablet Take 1 Tablet by mouth. 4 acyclovir (ZOVIRAX) 200 mg capsule TAKE 1 CAPSULE BY MOUTH DAILY INCREASINT DOSE NEEDED FOR INCREASED SYMPTOMS UP TO 2 CAPSULES DAILY 11/16/2019 4 added in this encounter Care Teams Transactional Paralegal Relationship Specialty Start Date End Date Laura Ho MD [address] [place] [id number] PCP - General 12/25/19 documented as of this encounter
[2024-06-21 15:55] LABS: ALT 14 U/L (16-63); AST 10 U/L (15-37); Alkaline Phosphatase 77 U/L (46-116); Anion Gap 8.6 mmol/L (3-11); BUN 16 mg/dL (7-18); Bilirubin, Total 0.17 mg/dL (0.2-1.0); CO2 27.4 mmol/L (21.0-32.0); CREATININE 1.2 mg/dL (0.70-1.30); Calcium 9.3 mg/dL (8.5-10.1); Calculated LDL 91 mg/dL (<100); Chloride 106 mmol/L (98-107); Cholesterol 198 mg/dL (<200); Estimated GFR 75.53 (mL/min/1.73m2); Glucose 88 mg/dL (74-106); HDL Cholesterol 67 mg/dL (40-60); Potassium 4.2 mmol/L (3.5-5.1); Sodium 142 mmol/L (136-145); TSH (W/Ref FT4) 0.74 uIU/mL (0.36-3.74); Total Protein 7.7 g/dL (6.4-8.2); Triglyceride 200 mg/dL (<150)
[2024-06-21 16:04] LABS: *AMPHETAMINES SCREEN URINE Negative (Negative); *BARBITURATES SCREEN URINE Negative (Negative); *BENZODIAZEPINES SCREEN URINE Negative (Negative); Cannabinoids THC Positive (Negative); Cocaine Screen,Urine Negative (Negative); METHADONE URINE SCREEN Negative (Negative); OPIATES URINE SCREEN Negative (Negative)
[2024-06-21 16:06] LABS: Tricyclic Antidepressants Negative (Negative)
[2024-06-25 10:18] LABS: Fentanyl Scr w/Rfx Confirm Negative ng/mL (<1)
[2024-06-26 09:52] LABS: Xylazine, Confirmation Urine Negative ng/mL (<50)
== END 2024-06-21 15:29 | disposition home or self-care (01) ==
LOC: LBO 15:28
PROVIDERS: PCP Family Medicine; Visit Provider Nurse Practitioner Family
DX: I10 Essential (primary) hypertension (principal); E78.5 Hyperlipidemia, unspecified; E55.9 Vitamin D deficiency, unspecified; D51.3 Other dietary vitamin B12 deficiency anemia
CPT/HCPCS: 36415; 80053; 80061; 80307; 80375; 84443; 85025

== ENCOUNTER 2024-07-06 00:47 | Outpatient (CLI) | payer MEDICAID, SELFPAY ==
--- NOTE | 2024-07-06 | DI.US_ITS ---
Exam(s) US ABDOMEN EXAM: US ABDOMEN CLINICAL HISTORY: Cirrhosis of liver, K74.69 TECHNIQUE: Ultrasound abdomen performed using standard protocol. COMPARISON: No exams were available for comparison FINDINGS: LIVER: Normal size and echogenicity. No focal liver lesions are seen. GALLBLADDER: Cholecystectomy BILIARY SYSTEM: No intrahepatic or extrahepatic biliary ductal dilation. KIDNEYS: Kidneys are symmetric in size. No evidence of renal calculi. No evidence of hydronephrosis. No renal mass or cyst identified. PANCREAS: Normal where visualized. SPLEEN: Not enlarged. Two 3 millimeter calcified granulomas. ABDOMINAL AORTA AND IVC: Visualized portions normal caliber. ASCITES: None seen. IMPRESSION: No visible cirrhotic changes in the liver. No focal mass. Status post cholecystectomy. DATA REPOSITORY:
--- OUTSIDE RECORDS SUMMARY | 2024-07-06 00:48 | XMS_ITS | Clinical Summary ---
Author Organization [facility] Address [facility] [place] [address] Care Team Providers Care Diesel Fleet Mechanic Name Role Phone Laura Ho MD Primary Care Provider [phone] Allergies Active Allergy Reactions Criticality Noted Date [...] year) with FIT yearly 1980 Sigmoidoscopy 1980 Hepatitis B vaccine (0-59 yrs) (1) 1997 Pneumococcal Vaccine: At-Ris k 5-64yrs (1 of 2 - PCV) 1997 Tetanus/Diphtheria/Pertussis Vaccines (1 - Tdap) 1997 [...] for lipoid disorders HIV SCREEN, 4TH GENERATION ([facility] [place] Routine 08/11/2017 4:18 PM EST from Last 3 Months or Most Recently Relevant to Health Maintenance Results * Basic Metabolic Panel (non-fasting) (02/06/2024 12:00 AM EDT) Glucose 108 65 - 199 mg/dL [facility] Comment:Diabetes: >=200 mg/d L plus symptoms Blood Urea Nitrogen 12 10 - 20 mg/dL [facility] Creatinine 1.08 0.80 - 1.50 mg/dL [facility] Sodium 136 135 - 145 mmol/L [facility] Potassium 3.6 3.5 - 5.0 mmol/L [facility] Comment: Please note: ??Patients with WBC >100,000 may have falsely elevated Potassium levels. ??For accurate Potassium quantification in these patients send serum separator tube (gold top) for subsequent determinations. ??Contact the Clinical Chemistry Laboratory if there are any questions. Chloride 99 98 - 107 mmol/L [facility] Carbon Dioxide 27 22 - 31 mmol/L [facility] Anion Gap 10 5 - 15 mmol/L [facility] Calcium 9.8 8.5 - 10.5 mg/dL [facility] Est Glomerular Filtration Rate 86 >=60 mL/min/1. 73 m?? [facility] Comment: This patient's estimated GFR [...] Lab Guille Hansen MD CHEMISTRY ORDERABLE S [facility] [place] [place] [address] * Lipid Panel (12/11/2018 10:30 AM EDT) Cholesterol, Total 143 mg/dL Mohit [facility]AGUIR[facility] Comment: Lower Risk: <200 mg/dL Average Risk: 200-239 mg/dL Higher Risk: >ge=385 mg/dL Triglyceride 127 mg/dL [facility] Comment: Average Risk/Lower Risk: <150 mg/dL Borderline High Risk: 150-199 mg/dL High Risk: 200-499 mg/dL Very High Risk: >xq=914 mg/dL HDL Cholesterol 59 mg/dL [facility] Comment: Males: ?? Higher Risk: <40 mg/dL Females: ?? HIgher Risk: <50 mg/dL LDL Cholesterol 59 mg/dL [facility] Comment: Lowest Risk: <100 mg/dL Lower Risk: 100-129 mg/dL Borderline High Risk: 130-159 mg/dL High Risk: 160-189 mg/dL Very High Risk: >xq=698 mg/dL Cholesterol/HDL Ratio 2.[address] [facility] Lipid Interpretation See Note [facility] Comment: Lipid management should be guided by a patient? s ASCVD risk, goals and preferences. ACC/AHA Guidelines recommend high intensity statin if clinical ASCVD or LDL greater than or equal to 190 mg/dL. http://Soflow.com/SKC-DNF-Zpbpiokrx Adults aged 40-75 with LDL 70-189 mg/dL should have their 10 year ASCVD risk estimated with the ACC/AHA ASCVD risk meat lugger http://tools.acc.org/YQMAH-Zzrp-Xcddtdqbl/ Statin should be discussed if risk greater [...] In Lab Laura Ho MD CHEMISTRY ORDERABLES [facility] [place] [address] * HIV Screen, 4th Generation (08/11/2017 4:18 PM EST) HIV Ab/Ag Screen Negative Negative [facility] Comment: This 4th Generation HIV [...] In Lab Fitz Quach MD CHEMISTRY ORDERABLES [facility] [place] [address] from Last 3 Months or Most Recently Relevant to Health Maintenance Advance Directives Documents on File Type Date Recorded Patient Nail Feeder Expl anation Advance Directives and Livin g [...] capacity to make decision: Yes Care Teams Diesel Fleet Mechanic Relationship Specialty Start Date End Date Laura Ho MD [address] [place] [address] PCP - General Family Medicine 12/19/16
--- OUTSIDE RECORDS SUMMARY | 2024-07-06 00:48 | XMS_ITS | Continuity of Care Document ---
Author Organization [facility], Gia Enriquez Address [address] [place] [address] Assessment No assessment recorded. Plan of Treatment Reminders Order Date Submit Date Provider Last Modified By Organization Details Last Modified Time Details Appointments FOLLOW UP 2024 02:00P M Gia Enriquez APRN, MANAGER VAN-C, PMHNP-C, DNP Not available Not available Not available Lab None recorded. Referral None recorded. Procedures None recorded. Surgeries None recorded. Imaging XR, elbow - right elbow xray 2023 [facility] [address], [place], [address], 06/19/2024 18:24:01 US, duplex, abdomen, complete 2023 [facility], [place], [address], 06/26/2024 09:34:49 Medication Orders olanzapin e 5 mg tablet 2023 [facility] [place], [address], 06/19/2024 18:17:54 prazosin 5 mg capsule 2023 [facility] [place], [address], 06/19/2024 18:17:55 Suboxone 8 mg-2 mg sublingua l film 2023 024 [facility] [place], [address], 06/19/2024 18:19:21 buprenorp rashad 12 mg-naloxo ne 3 mg sublingua l film 2023 024 [facility] [place], [address], 06/19/2024 18:17:53 Patient Targets Encounter Date Encounter Id Patient Goals Patient Target Last Modified By Organization Details Last Modified Time Refrain from illicit drug use (Cocaine).Lifes tyle modification with diet and exercise. [email or web address] Not available 06/19/2024 18:27:56 Patient Instructions Encounter Date Encounter Id Patient Instructions Last Modified By Organization Details Last Modified Time 06/19/2024 75 schizophrenia: care instructions [email or web address] Not available 06/19/2024 18:17:38 cirrhosis: care instructions [email or web address] Not available 06/19/2024 18:17:38 liver disease diet: care instructions [email or web address] Not available 06/19/2024 18:17:38 Titrate down olanzapine to 5 mg today from 10 mg and continue on Caplyta (lumateperone) 42 mg. Take 5 mg of olanzapine for 4 weeks, then 5 mg every other day for 4 weeks. Aim to be off olanzapine completely by July 20. Consider applying for disability again. Call a counselor from the provided list to make an appointment for regular sessions. Consider joining online support groups like [employer] for additional support. Get labs done, including liver function tests, CMP, vitamin D, serum calcium, total serum alkaline phosphatase, and a repeat hepatitis panel. Schedule an abdominal ultrasound to check liver health. Get an X-ray of the right elbow to rule out any issues. Consider switching to methadone if Suboxone is not effective, but be aware of the daily clinic visits required. Consider VIVITROL (naltrexone) injection as an alternative, but it requires being off medication for a couple of weeks. Think about returning to Brixadi injections if they were effective in the past. Ensure to take the full dose of buprenorphine daily to avoid relapse. Discuss any changes in symptoms or medication effects with the physician. [email or web address] Not available 06/19/2024 17:57:42 Reason for Referral None Reported. Problems Name Problem SNOMED Code Status Onset Date Resolution Date Notes Provider Name and Address Organization Details Recorded Time Cirrhosis of liver Active 2023 Gia Enriquez, REGIONAL MAINTENANCE MANAGER, MANAGER VAN-C, PMHNP-C, DNP [address] [place], [address], [facility] 4 18:07:08 Marijuana user 754178602 Active [address] [place], [address], [facility] 4 09:32:13 Abscess of neck 4253441 Active [address] [place], [address], [facility] 4 09:32:29 Visual disturbance 45495792 Active [address] [place], [address], 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 4 09:33:15 Mild intermitten t asthma 677538199 Active [address] [place], [address], [facility] 4 09:33:41 Morbid obesity 082862386 Active [address] [place], [address], [facility] 4 09:33:57 Cigarette smoker 75361258 Active [address] [place], [address], [facility] 4 09:34:07 Adult attention deficit hyperactivi ty disorder 517592775 Active [address], [place], [address], [facility] 4 09:34:13 Opioid dependence, on agonist therapy 4284596728404 Active [address], [place], [address], [facility] 4 09:34:30 Schizophren ic disorders 532127628 Active [address], [place], [address], [facility] 4 09:34:44 Problem Notes None recorded. Procedures Surgical History Date Name Laterality Status Provider Name and Address Organization Details Recorded Time procedure on gallbladder completed [address], [place], [address], [facility] 06/19/2024 15:12:03 Imaging Results None recorded. Procedure Notes None recorded. Medical Equipment None Reported. Allergies No known drug allergies Medications Name Sig Start Date Stop Date Status Note LastModified by Organization Details LastModified Time buspirone 5 mg tablet TAKE 1 TABLET BY MOUTH THREE TIMES DAILY NEEDED active Not Available Not Available No t Available metformin 500 mg tablet Take 1 tablet every day by oral route. active Not Available Not Available No t Available prazosin 1 mg capsule TAKE 2 CAPSULES BY MOUTH AT BEDTIME DIRECTED active Not Available Not Available No t Available olanzapine 5 mg tablet Take 1 tablet every day by oral route. 2023 active Not Available Not Available Not Avai lable olanzapine 10 mg tablet Take 1 tablet every day by oral route at bedtime. active Not Available Not Available No t Available lithium carbonate ER 300 mg tablet,exten ded release TAKE 3 TABLETS BY MOUTH AT BEDTIME. RETURN TO 4 TABLETS IF WORSENING SYMPTOMS active Not Available Not Available No t Available lithium carbonate 150 mg capsule TAKE 3 CAPSULES BY MOUTH DAILY active Not Available Not Available Not Available olanzapine 2.5 mg tablet Take 2 tablets 3 times a day by oral route as needed. active Not Available Not Available No t Available lamotrigine 25 mg tablet TAKE 2 TABLETS BY MOUTH ONCE DAILY WITH 100 MG TABLET active Not Available Not Available No t Available prazosin 5 mg capsule Take 1 capsule twice a day by oral route. 2023 active Not Available Not Available Not Avai lable lithium carbonate 600 mg capsule TAKE 1 CAPSULE BY MOUTH EVERY DAY active Not Available Not Available No t Available nicotine 21 mg/24 hr daily transdermal patch APPLY 1 PATCH DAILY FOR 6 WEEKS THEN LOWER DOSE DIRECTED active Not Available Not Available No t Available albuterol sulfate HFA 90 mcg/actuatio n aerosol inhaler INHALE 2 PUFFS BY MOUTH FOUR TIMES DAILY NEEDED active Not Available Not Available No t Available lamotrigine 100 mg tablet TAKE 1 TABLET BY MOUTH THREE TIMES DAILY DIRECTED active Not Available Not Available Not Available prazosin 2 mg capsule Take 2 capsules every day by oral route at bedtime. active Not Available Not Available No t Available amoxicillin 875 mg-potassium clavulanate 125 mg tablet TAKE 1 TABLET BY MOUTH TWICE DAILY FOR 7 DAYS active Not Available Not Available No t Available buspirone 15 mg tablet Take 1 tablet every day by oral route at bedtime. active Not Available Not Available No t Available aripiprazole 10 mg tablet TAKE 1 TABLET BY MOUTH DAILY active Not Available Not Available Not Available Abilify 15 mg tablet Take 1 tablet every day by oral route at bedtime. active Not Available Not Available No t Available nicotine (polacrilex) 4 mg buccal lozenge DISSOLVE 1 LOZENGE BY MOUTH EVERY 1 TO 2 HOURS NEEDED active Not Available Not Available No t Available aripiprazole 5 mg tablet TAKE 1 TABLET BY MOUTH EVERY NIGHT AT BEDTIME active Not Available Not Available No t Available Focalin XR 10 mg capsule,exte nded release TAKE 3 CAPSULES BY MOUTH EVERY DAY active Not Available Not Available No t Available Symbicort 160 mcg-4.5 mcg/actuatio n HFA aerosol inhaler Inhale 2 puffs twice a day by inhalation route. active Not Available Not Available No t Available lamotrigine ER 200 mg tablet,exten ded release 24 hr Take 1 tablet every day by oral route at bedtime. active Not Available Not Available No t Available dexmethylphe nidate ER 30 mg capsule,exte nded release [id number] 0 TAKE 1 CAPSULE BY MOUTH DAILY active Not Available Not Available Not Available Suboxone 8 mg-[address] 1 film every day by sublingual route. 2023 active Not Available Not Available Not Avai lable buprenorphin e 12 mg-naloxone [address] 1 film every day by sublingual route for 30 days, for OUD. 2023 active Not Available Not Available Not Avai labgoldie Blanchard Maintena 400 mg intramuscula r suspension,e xtended release INJECT 400MG INTO THE MUSCLE ONCE MONTHLY active Not Available Not Available No t Available albuterol sulf 90 mcg/actuatio n breath activated powder inhaler,sens or Inhale 2 puffs 4 times a day by inhalation route as needed. active Not Available Not Available No t Available Caplyta 42 mg capsule Take 1 capsule every day by oral route at bedtime. active Not Available Not Available No t Available Vitals Date Recorded Body height Body mass index (BMI) Body weight Body temperature Heart rate Oxygen saturation Oxygen saturation in Arterial blood by Pulse oximetry Systolic blood pressure Diastolic blood pressure Provider Name and Address Organization Details Last Updated DateTime 185.42 cm 29.2 kg/m2 534965. 91 g 98 [degF] 72 /min 95 % 95 % 119 mm[Hg] 76 mm[Hg] [address], [place], [address] , [facility] 15:07:51 Social History Question Answer Notes LastModified by Organizat ion Details LastModified Time Tobacco Smoking Status Current Every Day Smoker [address], [place], [address], [facility] 06/19/2024 15:10:46 What Is Your Level Of Alcohol Consumption? None Information not available 06/19/2024 Do You Or Have You Ever Used Any Nicotine-free Cigarettes, Vape, Or Chewing Tobacco? No Information not available 06/19/2024 How Much Tobacco Do You Smoke? 1 PPD Information not available 06/19/2024 Do You Use Any Illicit Or Recreational Drugs? Yes Information not available 06/19/2024 Has Tobacco Cessation Counseling Been Provided? No Information not available 06/19/2024 Do You Or Have You Ever Used Any Other Forms Of Tobacco Or Nicotine? No Information not available 06/19/2024 Sex: Unknown Functional Status None recorded. Mental Status None recorded. Family History Relationship Description Onset Age of this Age Resolved Age Notes LastModified by Organization Details LastModified Time Maternal Grandmother Heart disease Not available 2023 15:09:47 Medical History No medical history recorded. Past Encounters Encounter ID Performer Location Encounter Start Date Encounter Closed Date Diagnosis/Indication Diagnosis SNOMED-CT Code Diagnosis ICD10 Code 75 Gia Enriquez APRN, MANAGER VAN-C, PMHNP-C, DNP Gia Enriquez [address] [facility] [place] [address] 06/19/2024 14:53:51 06/19/2024 16:34:45 Opioid dependence, on agonist therapy 6009043786 105 F11.20 History of musculoskeletal disease 620603914 Z87.39 Cirrhosis of liver 007 K74.69 Schizophre elvis disorders 758658259 F20.9 Health Concerns Section Related Observation LastModified by Organization Detai ls LastModified Time None Recorded Concern Status LastModified by Organization Details LastModified Time None Recorded Payers Encounter Date Sequence Insurance Name Policy Number Policy Giordano Covered Member ID Giordano Member ID Guarantor Name 06/19/2024 1 [facility] (MEDICAID) Harvey Espinosa [id number] Harvey Sullivanvanessalluvia Notes Date Note Type Note Provider Name and Address Organization Details Recorded Time 06/19/2024 text/html The patient is experiencing issues related to medication changes, including hearing voices, sedation, and weight gain. The patient is currently tapering off olanzapine due to concerns about weight gain and sedation, and is transitioning to Caplyta (lumateperone). The patient reports that the voices have become less severe since starting Caplyta. The patient is also dealing with sedation, which affects daily activities, including driving. The patient has a history of substance use and recently relapsed, which may be affecting medication adherence. The patient is experiencing elbow pain and has a history of Paget's disease. The patient also reports nightmares and has a history of hepatitis C and liver cirrhosis. The patient is concerned about the impact of medication on liver health. The patient is considering applying for disability due to mental health issues and has been denied in the past. The patient is managing cravings and considering different treatment options for substance use. Gia Enriquez APRN, PILO, PMHNPasha-Joey, RENA [address] [facility] , [place], [address], [facility] 06/19/2024 18:32:56
--- OUTSIDE RECORDS SUMMARY | 2024-07-06 00:48 | XMS_ITS | Data Portability ---
Author Organization [facility], Gia Enriquez Address [address] [place] [address] Assessment No assessment recorded. Plan of Treatment Reminders Order Date Submit Date Provider Last Modified By Organization Details Last Modified Time Details Appointments FOLLOW UP 2024 02:00P M Gia Enriquez APRN, PAINTER SHIPYARD-C, PMHNP-C, DNP Not available Not available Not available Lab None recorded. Referral None recorded. Procedures None recorded. Surgeries None recorded. Imaging XR, elbow - right elbow xray [address] [facility], [place], [address], 06/19/2024 18:24:01 US, duplex, abdomen, complete 2023 [facility], [place], [address], 06/26/2024 09:34:49 Medication Orders olanzapin e 5 mg tablet 2023 [facility] [place] [place], [address], 06/19/2024 18:17:54 prazosin 5 mg capsule 2023 024 [facility] [place] [place], [address], 06/19/2024 18:17:55 Suboxone 8 mg-2 mg sublingua l film 2023 024 [facility] [place] [place], [address], 06/19/2024 18:19:21 buprenorp rashad 12 mg-naloxo ne 3 mg sublingua l film 2023 024 [facility] [place] [place], [address], 06/19/2024 18:17:53 Patient Targets Encounter Date Encounter Id Patient Goals Patient Target Last Modified By Organization Details Last Modified Time Refrain from illicit drug use (Cocaine).Lifes tyle modification with diet and exercise. [email or web address] Not available 06/19/2024 18:27:56 Patient Instructions Encounter Date Encounter Id Patient Instructions Last Modified By Organization Details Last Modified Time 06/19/2024 75 schizophrenia: care instructions [email or web address] Not available 06/19/2024 18:17:38 cirrhosis: care instructions [email or web address] Not available 06/19/2024 18:17:38 liver disease diet: care instructions [email or web address] Not available 06/19/2024 18:17:38 Titrate down olanzapine [...] sessions. Consider joining online support groups like [employer] for additional support. Get labs done, including [...] symptoms or medication effects with the physician. [email or web address] Not available 06/19/2024 17:57:42 Reason for Referral None Reported. Results Created Date Observation Date Name Description Value Unit Range Abnormal Flag Note LastModifiedBy Organization Detail LastModifiedTime Result Notes None recorded. Problems Name Problem SNOMED Code Status Onset Date Resolution Date Notes Provider Name and Address Organization Details Recorded Time Cirrhosis of liver Active 2023 Gia Enriquez, SECOND CRUSHER, PAINTER SHIPYARD-C, PMHNP-C, [place], [address], [facility] 4 18:07:08 Marijuana user 592818284 Active [address] [place], [address], [facility] 4 09:32:13 Abscess of neck 8351741 Active [address] [place], [address], [facility] 4 09:32:29 Visual disturbance 24198369 Active [address] [place], [address], [facility] 4 09:32:58 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 034751865 Active [address] [facility] [place] [place], [address], [facility] 4 09:33:15 Mild intermitten t asthma 428988480 Active [address] [place], [address], [facility] 4 09:33:41 Morbid obesity 271202556 Active [address] [place], [address], [facility] 4 09:33:57 Cigarette smoker 52788116 Active [address] [place], [address], [facility] 4 09:34:07 Adult attention deficit hyperactivi ty disorder 825219791 Active [address] [place] [place], [address], [facility] 4 09:34:13 Opioid dependence, on agonist therapy 3718861818034 Active [address] [place], [address], [facility] 4 09:34:30 Schizophren ic disorders 092288254 Active [address] [place], [address], [facility] 4 09:34:44 Problem Notes None recorded. Procedures Surgical History Date Name Laterality Status Provider Name and Address Organization Details Recorded Time procedure on gallbladder completed [place], [address], [facility] 06/19/2024 15:12:03 Imaging Results None recorded. [...] nidate ER 30 mg capsule,exte nded release [id number] 0 TAKE 1 CAPSULE BY MOUTH DAILY [...] Not Available Not Available Not Avai lable Abilify Maintena 400 mg intramuscula r suspension,e xtended [...] Last Updated DateTime 185.42 cm 29.2 kg/m2 559857. 91 g 98 [degF] 72 /min 95 % 95 % 119 mm[Hg] 76 mm[Hg] [place], [address] , [facility] 15:07:51 Social History Question Answer Notes LastModified by Organizat ion Details LastModified Time Tobacco Smoking Status Current Every Day [place], [address], [facility] 06/19/2024 15:10:46 What Is Your Level [...] Diagnosis ICD10 Code 75 Gia Enriquez APRN, PAINTER SHIPYARD-C, PMHNP-C, DNP Gia Enriquez [address] [place] [address] [address] [place] [address] 06/19/2024 14:53:51 06/19/2024 16:34:45 Opioid dependence, on agonist therapy 6698360853 105 F11.20 History of musculoskeletal disease 141816411 Z87.39 Cirrhosis of liver 007 K74.69 Schizophre elvis disorders 082834448 F20.9 Health Concerns Section Related Observation LastModified by Organization Detai ls LastModified Time None Recorded Concern Status LastModified by Organization Details LastModified Time None Recorded Advance Directives Directive None Recorded Payers Encounter Date Sequence Insurance Name Policy Number Policy Giordano Covered Member ID Giordano Member ID Guarantor Name 06/19/2024 1 [facility] (MEDICAID) Harvey Sullivantony [id number] Harvey Espinosa Notes Date Note Type Note Provider Name [...] options for substance use. Gia Enriquez APRN, PAINTER SHIPYARD-C, PMHNP-C, DNP [address] [facility] , [place], [address], [facility] 06/19/2024 18:32:56
--- OUTSIDE RECORDS SUMMARY | 2024-07-06 00:49 | XMS_ITS | Encounter Summary ---
Author Organization [facility]ly [facility] Address [facility] [place] [address] Care Team Providers Care Division Head Name Role Phone Laura Ho MD Primary Care Provider [phone] Reason for Referral * Consultation (Routine) - Closed Specialty Diagnoses / Procedures Referred By Contac t Referred To Contact Orthopaedics Diagnoses Paget's disease of bone Procedures DR DONNA CROSS (was resident under Dr. Edgar) Laura Ho MD [address] [place] [address] Gorge Edgar MD [facility] [address] [place] [address] Referral ID Status Reason Start Date Expiration Date V isits Requested Visits Authorized [id number] Closed Consult, Test & Treat PCP Updated and/or Approved 10/15/2021 10/15/2022 6 6 Encounter Details Date Type Department Care Team (Latest Contact Info) Description 10/15/2021 Transcribe Orders eDH Incoming Referrals [phone] Laura Ho MD [address] [place] [address] Paget's disease of bone Social [...] tumor documented in this encounter Care Teams Division Head Relationship Specialty Start Date End Date Laura Ho MD [address] [place] [address] PCP - General Family Medicine 06/28/16 documented as of this encounter
--- OUTSIDE RECORDS SUMMARY | 2024-07-06 00:49 | XMS_ITS | Encounter Summary ---
Author Organization [facility] Address [facility] [address] [place] [address] Care Team Providers Care Milk Drying Machine Operator Name Role Phone Laura Ho MD Primary Care Provider [phone] Encounter Details Date Type Department Care Team (Late st Contact Info) Description 01/14/2021 [place]phone [place] [address] Mary Braxton Social History Tobacco Use Types [...] on filedocumented in this encounter Care Teams Milk Drying Machine Operator Relationship Specialty Start Date End Date Laura Ho MD [address] [place] [address] PCP - General Family Medicine 06/28/16 documented as of this encounter
--- OUTSIDE RECORDS SUMMARY | 2024-07-06 00:49 | XMS_ITS | Encounter Summary ---
Author Organization [facility] [place] [address] Care Team Providers Care Professor Of Religion Name Role Phone Laura Ho MD Primary Care Provider [phone] Encounter Details Date Type Department Care Team [...] on filedocumented in this encounter Care Teams Professor Of Religion Relationship Specialty Start Date End Date Laura Ho MD [address] [place] [address] PCP - General Family Medicine 06/28/16 documented as of this encounter
--- OUTSIDE RECORDS SUMMARY | 2024-07-06 00:49 | XMS_ITS | Encounter Summary ---
Author Organization [facility] Address [facility] [place] [address] Care Team Providers Care Panel Cutter Name Role Phone Laura Ho MD Primary Care Provider [phone] Encounter Details Date Type Department Care Team (Late st Contact Info) Description 12/02/2023 8:05 PM EDT Ancillary Procedure Radiology [facility] at [facility] [place] [phone] Social History Tobacco Use Types Packs/Day Years [...] Neck (12/02/2023 8:01 PM EDT) WORKSTATION ID [id number] [facility] Anatomical Region Laterality Modality Neck SO Impressions [...] who have questions please contact the health child care education coordinator that requested your imaging first. ? Electronically signed by: Collins Nicholson MD, [facility] ([phone]), at 12/02/2023 8:53 PM Narrative 12/02/2023 8:53 PM EDT EXAMINATION: REQUEST FOR 2ND READ CT NECK CLINICAL HISTORY: 43 y.o. male with right sided neck absess; Sending Institution [facility]; Date of exam 20231128; I believe a [...] y.o. male with right sided neck absess; [facility]; Date of exam 20231128; I believe a [...] irregular rim-enhancing collection visible on the study [id number]. The appearance of this collection is nonspecific [...] patients who have questions please contactthe health child care education coordinator that requested your imaging first. Electronically signed by: Collins Nicholson MD, [facility]([phone]), at 12/02/2023 8:53 PM Yfn Silverman MD IMG OUTSIDE INTERP RETATION ORDERABLES documented in this encounter Visit Diagnoses Not on filedocumented in this encounter Care Teams Panel Cutter Relationship Specialty Start Date End Date Laura Ho MD [address] [place] [address] PCP - General Family Medicine 06/28/16 documented as of this encounter
--- OUTSIDE RECORDS SUMMARY | 2024-07-06 00:49 | XMS_ITS | Encounter Summary ---
Author Organization [facility] Address [facility] [place] [address] Care Team Providers Care Manager Bench Name Role Phone Laura Ho MD Primary Care Provider [phone] Reason for Visit * Reason Comments Abscess right neck Head Injury 4 days ago * Auth/Cert Specialty Diagnoses / Procedures Referred By Govind t Referred To Contact Diagnoses Neck abscess Procedures ER IPI Admit Referral ID Status Reason Start Date Expiration Date Visits Re quested Visits Authorized [id number] 1 1 Encounter Details Date Type Department Care Team (Latest Contact Info) Description 01/10/2021 2:41 PM EDT - 01/13/2021 1:51 PM EDT Hospital Encounter [address] [place] [id number] Bee Malone MD [facility] [place] [address] Rusty Gong MD [facility] [place] [address] Neck abscess Discharge Disposition: Home Social History [...] have questions please contact the health healthcare corporate account director that requested your imaging first. Discharge Info [...] -You can reach the ENT clinic at [phone] for appointment questions. -The ENT triage nurse is available at [phone] -For urgent issues during evenings (5 PM - 7 AM) and weekends the ENT resident retail sales professional can be reached through the main hospital pug mill operator helper at [phone] Follow Up: You will need to follow [...] Relapse Prevention Resources Residential Treatment: Tello Moreno [address] [place] [id number] [id number] Intensive Outpatient Programs: [facility] [address] [place], [place] [facility] [address] [place] [address] Individual Therapy: [facility] [address] [place], [place] [facility] [address] [place] [address] You may also search www.Synthorx.Birdland Software or dial 211 for therapists in your area. Medication [facility]: [facility] [address] [place] [address] [facility] [address] [place] [address] [place] [address] Peer Support Groups Alcoholics Anonymous (AA) [place]: , www.nhaa.net Narcotics Anonymous (NA) [place]: , www.Qranioana.org Online AA and NA Meetings AA, NA, Refuge Recovery, SMART Recovery www.Hoseanna AA Video Meetings www.aa-intergroup.org/directory_audio-video.php AA Text Chat Meetings www.aa.intergroup.org/directory.php NA Video Meetings www.virtual-na.org/meetings NA Text Chat Meetings Www.Akshay Wellnessaloneclub.org SMART Recovery Meetings via Zoom 5:00-6:00pm, free and open to all To join Zoom meetin. Visit www.appening.Birdland Software 2. Click on calendar on top of toolbar 3. Find the correct meeting date and time 4. Click the zoom link and enter password provided 211: Your Connection to Recovery HUBS Dial 08-11- from anywhere in [place] 31/01 to be connected with a mental health professional who can refer you to your local HUB for evaluation and referral to appropriate substance use treatment. Safe Station Present to any one of the fire stations in [place] or [facility], now designated as ???Safe Stations?? , a place where you can walk in 31/01, and get connected with substance use treatment services. [facility] Safe Stations Central Fire Station: [address] --- Station 2: [address] Station 3: [address] --- Station 4: [address] Station 5: [address] --- Station 6: [address] Station 7: [address]--- Station 8: [address] [facility] [address] Station 9: [address]--- Station 10: [address] [facility] Safe Stations Station 1: [address] --- Station 2: [address] --- Station 3: [address] Station 4: [address] --- Station 5: [address] -- Station 6: [address] Station 7: [address] Additional Resources Www.vtaddictionservices.org www.healthvermont.gov/alcohol-drugs www.pmtlxan487.org/ (Search for Substance Use) www.TabUp/ Www.rethinkingdrinking.niaaa.nih.gov/ www.samhsa.gov/aoapdptxtw-ojliwkzx-lujhcffxo/wmzmttnndjkf-cencmdd-qnpn/treatment -practitioner-showroom manager Opiate Overdose Prevention: www.prescribetoprevent.org National Suicide Prevention Hotline: (503) 449-MQRD (0715) NEW SYRINGE EXCHANGE PROTOCOL as of September Mobile operations by appointment. For more information about receiving supplies and naloxone or to schedule an appointment: [place] clients call and leave a message for Elli (ext. 105) or Johnson He (ext. 104). [place] clients call to speak with Johnson Zapata [...] is being approved. Online Stress Reduction Resources www.Huoli/videos-features/videos/vettgmedg-aidqfllqb-9-7-8-breath/ www.Windsor Circleord.org/2013/wraidxwux-uppazkkbr-gjmgdcv-moment/ www.Wintermute.com/ www.mindful.org/ www.freemindfulness.org/ __ Primary Care Doctor: Laura Ho MD [phone] Signed: Simran Pineda MD 01/13/2021 documented in this encounter Discharge Instructions * Discharge Instructions* Gonzales Wolfe, TIME LOCK EXPERT - 01/13/2021 8:03 AM EDT Substance Use Treatment and Relapse Prevention Resources Residential Treatment: [address] [address] Intensive Outpatient Programs: [address] Treatment [address] [phone] Individual Therapy: [address] [facility] [address] [place] [address] You may also search www.psychologyA.B Productionsday.Birdland Software or NanoMedical Systems for therapists in your area. Medication Assisted Treatment: [facility] [address] [place] [address] [facility] [address] [place] [address] [place] [address] Peer Support Groups Alcoholics Anonymous (AA) [place]: , www.nhaa.net Narcotics Anonymous (NA) [place]: , www.gmana.org Online AA and NA Meetings AA, NA, Refuge Recovery, SMART Recovery www.Fligoo.Birdland Software AA Video Meetings www.aa-intergroup.org/directory_audio-video.php AA Text Chat Meetings www.aa.intergroup.org/directory.php NA Video Meetings www.virtual-na.org/meetings NA Text Chat Meetings Www.neveraloneclub.org SMART Recovery Meetings via Zoom 5:00-6:00pm, free and open to all To join Zoom meetin. Visit www.LiveNinja 2. Click on calendar on top of toolbar 3. Find the correct meeting date and time 4. Click the zoom link and enter password provided 211: Your Connection to Recovery HUBS Dial 2- from anywhere in [place] 31/01 to be connected with a mental health professional who can refer you to your local HUB for evaluation and referral to appropriate substance use treatment. Safe Station Present to any one of the fire stations in [place] or [facility], now designated as ???Safe Stations?? , a place where you can walk in 31/01, and get connected with substance use treatment services. [facility] Safe Stations Central Fire Station: [address] --- Station 2: [address] Station 3: [address] --- Station 4: [address] Station 5: [address] --- Station 6: [address] Station 7: [address]--- Station 8: [address] [facility] [address] [facility] Station 9: [address]--- Station 10: [address] [facility] Safe Stations Station 1: [address] --- Station 2: [address] --- Station 3: [address] Station 4: [address] --- Station 5: [address] -- Station 6: [address] Station 7: [address] Additional Resources Www.vtaddictionservices.org www.healthvermont.gov/alcohol-drugs www.ekuxlal949.org/ (Search for Substance Use) www.psychologyHalldis.Birdland Software/ Www.rethinkingdrinking.niaaa.nih.gov/ www.samhsa.gov/mupzwsxkvl-tlnogffy-ukosehegb/vnchuartjrtx-ukgxlrl-xrqr/treatment -practitioner-showroom manager Opiate Overdose Prevention: www.prescribetoprevent.org National Suicide Prevention Hotline: (859) 600-TALK (1182) NEW [place]INGE EXCHANGE PROTOCOL as of September [...] is being approved. Online Stress Reduction Resources www.Huoli/videos-features/videos/ylvvimchx-ccxzxcutm-3-7-8-breath/ www.StoredIQ.Oravel/2013/wowaqmqtu-puwakjcvj-kkgwcyy-moment/ www.Voyage Medicalce.Birdland Software/ www.mindful.org/ www.freemindfulness.org/ * Patient Instructions* Simran Pineda [...] -You can reach the ENT clinic at [phone] for appointment questions. -The ENT triage nurse is available at [phone] -For urgent issues during evenings (5 PM - 7 AM) and weekends the ENT resident retail sales professional can be reached through the main hospital pug mill operator helper at [phone] Follow Up: You will need to follow [...] PM EDT D/C planning: Team: ENT Pager: [phone] Pt to d/c home via private vehicle. Pt/team feel no d/c needs identified at this time, printed Sera drain care instructions given to pt. Pt is aware of d/c plan. Sagrario Baker MSN, RN CM duplicating machine operator Office of Care Management Pager #[phone] * April Herrera RN - 01/13/2021 1:04 [...] and need dressing materials for his neck. PANEL INSTRUMENT REPAIRER met with patient and life partner Luzmaria at bedside. Patient is looking forward to going home today. PANEL INSTRUMENT REPAIRER provided patient with Last Dose Letter just [...] of assistance and support during this hospitalization. PANEL INSTRUMENT REPAIRER updated bedside RN. SOLEDAD Gayle Inpatient Neurosciences Junior Business Analyst Phone: [phone] Pager: [phone] * Rusty Gong MD - 01/12/2021 12:16 [...] 3.98) performed by Rusty Gong MD at [facility] MAIN OR ??? PRO LAP, CHOLECYSTECTOMY/GRAPH N/A 09/15/2020 LAPAROSCOPIC CHOLECYSTECTOMY WITH CHOLANGIOGRAM (WRVU 11.47) performed by Jorge Luis Rios MD formerly [facility] MAIN OR Medications & Allergies [...] nightly. Pcn [penicillins] Social History Lives in [facility] [address] Social History Socioeconomic History ??? Marital status: [...] PGY4 01/12/21 12:16 PM ENT Team Pager: [phone] * Violeta Singer RN - 01/12/2021 3:12 [...] 3.98) performed by Rusty Gong MD at [facility] MAIN OR ??? PRO LAP, CHOLECYSTECTOMY/GRAPH N/A 09/15/2020 LAPAROSCOPIC CHOLECYSTECTOMY WITH CHOLANGIOGRAM (WRVU 11.47) performed by Jorge Luis Rios MD formerly [facility] MAIN OR Medications & Allergies [...] nightly. Pcn [penicillins] Social History Lives in [facility] [address] Social History Socioeconomic History ??? Marital status: [...] *Personally reviewed and evaluated ASSESSMENT & PLAN Harvye Espinosa is a 40 y.o. male with [...] PGY4 07/04/21 8:43 AM ENT Team Pager: [phone] ENT ATTENDING STAFF NOTE: I personally reviewed [...] 11.47) performed by Jorge Luis Rios MD formerly [facility] MAIN OR Medications & Allergies [...] nightly. Pcn [penicillins] Social History Lives in [facility] [address] Social History Socioeconomic History ??? Marital status: [...] PGY4 01/10/21 10:12 PM ENT Team Pager: [phone] ENT CONSULTATION- ATTENDING STAFF NOTE: The patient [...] internal jugular septic thrombophlebitis. Rusty Gong MD, [facility] Attending Staff documented in this encounter ED Notes * Colleen Swan RN - 01/10/2021 10:40 PM EDT Pt to OR with anesthsia * Mihaela Chang LPN - 01/10/2021 8:48 PM EDT Pt up and ambulated to bathroom to give a urine sample. updated pt and . * Berta Meek - 01/10/2021 8:39 PM EDT [facility] TUBING SUPERVISOR ED: Length of Paddle Dyeing Machine Operator services provided to ED patient:: 30 min How did the patient enter the program?: Other Did the patient consent to Paddle Dyeing Machine Operator services?: No RC introduced self and role. Pt declined services at this time. ALLEGRA Gaitan ED Recovery Support Pager # [phone] * Colleen Swan RN - 01/10/2021 7:50 [...] have questions please contact the health healthcare corporate account director that requested your imaging first. 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 Motivated to cut-back on his alcohol use with the ongoing clinical support of outpatient counseling at [facility]. Interventions delivered: Consulted with care team Plan: 1. Patient plans to remain abstinent from IVDU with the ongoing clinical support of Suboxone assisted therapy at [facility]. 2. Patient plans to cut-back on his alcohol use with the ongoing clinical support of outpatient counseling at [facility]. Outstanding Discharge Needs: Patient reports that he [...] Tolerating regular diet. Voiding in bathroom. LBM SEISMIC ENGINEER, pt refused senna/docusate today. Order to get up and ambulate independently. Continuing with vancomycin and cefepime. Serosanguineous and yellow drainage from [place], gauze changed x2 this shift. Pain to [...] medical record, and Patient, Significant Other This screenplay writer introduced self/reviewed role; services accepted. Reason [...] Luzmaria Vegas as primary DPOAHC and his [id number]-amj [place]. Copies made and provided. A [...] Accessibility Concerns:None. Current DME: none Home Address: [address] [place] [address] Social & Family Supports: Patient reports he [...] Insurance: N/A Prescription Coverage: Yes Preferred Pharmacy: [id number] - [place] - [address] [facility] [address] [facility] [address] [email or web address] [address] [place] Status: Patient is a : unable to assess Primary Care Provider: Laura Ho MD [phone] Patient/Caregiver Goals of Treatment: To go home [...] know she was close. Patient also confirmed. PANEL INSTRUMENT REPAIRER spoke with bedside RN and Charge. Will see about moving patient to a private (which would help per pt and partner Luzmaria), but she cannot spend the night. PANEL INSTRUMENT REPAIRER left bedside RN information on Rest Easy [...] discharged on oral ABX or IVABX. Plan: PANEL INSTRUMENT REPAIRER assisted patient with appointment of HC Agent form. PANEL INSTRUMENT REPAIRER to provide patient with Last Doseletter. PANEL INSTRUMENT REPAIRER provided bedside RN with information about Rest [...] of care planning. SOLEDAD Gayle Inpatient Neurosciences Junior Business Analyst Phone: [phone] Pager: [phone] * Plan of Care - Bea Frost RN - 01/11/2021 6:48 PM EDT OUTCOME EVALUATION NOTE: OUTCOME SUMMARY: Pt is A+Ox4, VSS on RA, nydia to upper 40's at times. [place] to right neck with gauze and sleeve covering, steristrips intact to neck. Tolerating regular diet. Voiding in bathroom. Pain to neck has been fairly controlled with scheduled meds. Pt requested additional dose of toradol as well as higher dose of nicotine patch and addition of nicotine gum-request sent to ENT retail sales professional via Securechat. Pthas independent to ambulate order. [...] EVALUATION: * Consult Note - Harvey Gonzalez [facility] - 01/11/2021 4:02 AM EDT Clinical Pharmacist Note - VancFD Harvey Espinosa [id number] 1980 Harvey Espinosa is a 40 y.o. [...] Alternately, during off-hours (9p-) you may call [phone] to contact a pharmacist. Harvey Gonzalez RPH * Op Note - Rusty Gong MD - 01/11/2021 12:58 AM EDT [facility] Operative Note Patient Name: Harvey Epsinosa : [id number] MR#: [id number] Case Date: 01/10/2021 - 01/11/2021 Surgeon: Surgeon(s) [...] Bundle used? N/A Kyle Still MD PGY-4 [facility] Otol[place]ology Pager: [phone] Attestation: Case Date: 01/10/2021 - 01/11/2021 I [...] Or Hematoma Soft Tissue Neck Or Thorax ([id number]) 01/10/2021 10:42 PM EDT Neck abscess RAPID [...] Metabolic Panel (non-fasting) (01/13/2021 10:38 AM EDT) [facility] Signature Glucose 80 65 - 199 mg/dL [facility] Comment:Diabetes: >=200 mg/d L plus symptoms Blood Urea Nitrogen 9(L) 10 - 20 mg/dL [facility] Creatinine 1.05 0.80 - 1.50 mg/dL [facility] Sodium 137 135 - 145 mmol/L [facility] Potassium 4.1 3.5 - 5.0 mmol/L [facility] Comment: Please note: ??Patients with WBC >100,000 may have falsely elevated Potassium levels. ??For accurate Potassium quantification in these patients send serum separator tube (gold top) for subsequent determinations. ??Contact the Clinical Chemistry Laboratory if there are any questions. Chloride 102 98 - 107 mmol/L [facility] Carbon Dioxide 29 22 - 31 mmol/L [facility] Anion Gap 6 5 - 15 mmol/L [facility] Calcium 10.2 8.5 - 10.5 mg/dL [facility] Est Glomerular Filtration Rate 87 >=60 mL/min/1. 73 m?? [facility] Comment: This patient? s estimated [...] Resulting Agency Comment Spec In Lab Rusty Gnog MD CHEMISTRY ORDERABLE S [facility] [place] [address] * (ABNORMAL) Differential, Automated (01/13/2021 3:45 AM EDT) Neutrophil % 46.7 % [facility] Neutrophil Absolute 3.07 1.70 - 6.10 x10(3)/[facility] Lymph % 34.2 % [facility] Lymphocytes Abs 2.2 0.9 - 3.2 x10(3)/[facility] Monocyte % 7.5 % [facility] Monocyte Abs 0.5 0.3 - 0.9 x10(3)/[facility] Eos % 9.9 % [facility] Eosinophils Abs 0.6(H) 0.0 - 0.4 x10(3)/[facility] Basophil % 1.4 % [facility] Baso Absolute 0.1 0.0 - 0.1 x10(3)/[facility] Immature Gran % 0.30 % [facility] Comment: Immature granulocytes(IG's)percentage and absolute count will include metamyelocytes, myelocytes, and promyelocytes. Blood smears from CBCs yielding IG's will be scanned manually for concordance. If this scan disagrees with the automated IG or if promyelocytes are noted, a manual differential will be performed. Immature Gran Absolute 0.02 0.00 - 0.04 x10(3)/[facility] Blood 01/13/2021 3:45 AM EDT 01/13/2021 4:22 AM EDT Narrative Resulting Agency Comment Spec In Lab Kyle Still MD HEMATOLOGY ORDERAB LES [facility] [place] [address] * (ABNORMAL) Hemogram (01/13/2021 3:45 AM EDT) White Blood Cell 6.6 4.0 - 9.5 x10(3)/[facility] Red Blood Cell 4.46(L) 4.58 - 5.54 x10(6)/mc L [facility] Hemoglobin 12.9(L) 13.7 - 16.5 gm/dL [facility] Hematocrit 40.7 40.5 - 48.5 % [facility] Mean Cell Volume 91.3 82.9 - 93.[address] [facility] Mean Cell Hemoglobin 28.9 27.5 - 32.[address] [facility] Mean Cell Hemoglobin Concentration 31.7(L) 32.0 - 35.7 gm/dL [facility] Platelet 409(H) 145 - 357 x10(3)/mc L [facility] RDW Standard Deviation 40.9 36.0 - 45.0 [facility] RDW coefficient of variation 12.2 11.4 - 13.8 % [facility] Mean Platelet Volume 10.1 7.6 - 12.9 [facility] NRBC% auto 0.0 % [facility] NRBC Absolute 0.000 0.000 - 0.000 x10(3)/mc L [facility] Blood 01/13/2021 3:45 AM EDT 01/13/2021 4:22 AM EDT Narrative Resulting Agency Comment Spec In Lab Kyle Still MD HEMATOLOGY ORDERAB LES Performing Organization Address City/State/[facility] Co de Phone Number [facility] [place] [address] * Vancomycin, trough (01/12/2021 12:08 PM EDT) Vancomycin, Trough 8.5 mg/L [facility] Comment: Therapeutic range for complicated [...] Lab Rusty Gong MD CHEMISTRY ORDERABLE S [facility] [place] [address] * (ABNORMAL) Differential, Automated (01/12/2021 6:32 AM EDT) Neutrophil % 44.6 % [facility] Neutrophil Absolute 2.97 1.70 - 6.10 x10(3)/mc L [facility] Lymph % 34.5 % [facility] Lymphocytes Abs 2.3 0.9 - 3.2 x10(3)/mc L [facility] Monocyte % 9.6 % [facility] Monocyte Abs 0.6 0.3 - 0.9 x10(3)/mc L [facility] Eos % 9.6 % [facility] Eosinophils Abs 0.6(H) 0.0 - 0.4 x10(3)/mc L [facility] Basophil % 1.3 % [facility] Baso Absolute 0.1 0.0 - 0.1 x10(3)/mc L [facility] Immature Gran % 0.40 % [facility] Comment: Immature granulocytes(IG's)percentage and absolute count will include metamyelocytes, myelocytes, and promyelocytes. Blood smears from CBCs yielding IG's will be scanned manually for concordance. If this scan disagrees with the automated IG or if promyelocytes are noted, a manual differential will be performed. Immature Gran Absolute 0.03 0.00 - 0.04 x10(3)/mc L [facility] Blood 01/12/2021 6:32 AM EDT 01/12/2021 6:45 AM EDT Narrative Resulting Agency Comment Spec In Lab Kyle Still MD HEMATOLOGY ORDERAB LES [facility] [place] [address] * (ABNORMAL) Hemogram (01/12/2021 6:32 AM EDT) White Blood Cell 6.7 4.0 - 9.5 x10(3)/mc L [facility] Red Blood Cell 4.54(L) 4.58 - 5.54 x10(6)/mc L [facility] Hemoglobin 13.2(L) 13.7 - 16.5 gm/dL [facility] Hematocrit 42.6 40.5 - 48.5 % [facility] Mean Cell Volume 93.8(H) 82.9 - 93.1 [facility] Mean Cell Hemoglobin 29.1 27.5 - 32.1 [facility] Mean Cell Hemoglobin Concentration 31.0(L) 32.0 - 35.7 gm/dL [facility] Platelet 413(H) 145 - 357 x10(3)/mc L [facility] RDW Standard Deviation 44.1 36.0 - 45.0 [facility] RDW coefficient of variation 12.7 11.4 - 13.8 % [facility] Mean Platelet Volume 10.3 7.6 - 12.9 [facility] NRBC% auto 0.0 % [facility] NRBC Absolute 0.000 0.000 - 0.000 x10(3)/[facility] Blood 01/12/2021 6:32 AM EDT 01/12/2021 6:45 AM EDT Narrative Resulting Agency Comment Spec In Lab Kyle Still MD HEMATOLOGY ORDERAB LES [facility] [place] [address] * Anaerobic Culture (01/10/2021 11:30 PM EDT) Anaerobic Culture No anaerobic organisms isolated [facility] Abscess NECK STRUCTURE / Unknown 01/10/2021 11:30 PM EDT 01/11/2021 12:28 AM EDT Comment:GRAM STAIN PLEASE Narrative Resulting Agency Comment Spec In Lab Rusty Gong MD MICROBIOLOGY - [facility] ORDERABLES [facility] [place] [address] * (ABNORMAL) Abscess/Wound Aspirate Culture (01/10/2021 11:30 PM EDT) Abscess/Wound Aspirate Culture Moderate Streptococcus pneumoniae(A) [facility] Gram Stain Many Neutrophils seen Many Gram Positive Cocci seen (A) [facility] Organism Streptococcus pneumoniae(A) [facility] Organism Gram Positive Cocci(A) [facility] Abscess NECK STRUCTURE / Unknown [...] SCAN METHOD Sensitive Streptococcus pneumoniae Penicillin (Nonmeningitis) DC CROSCAN METHOD Sensitive Comment: Penicillin susceptibility predicts susceptibility to Ampicillin, Ampicillin-Sulbactam, Amoxicillin, Amoxicillin-Clavulanate, Cefepime, Cefpodoxime, Cefprozil, Cefuroxime, Ceftriaxone and Meropenem. Streptococcus pneumoniae Tetracycline MICROSCAN METHOD Resistant Streptococcus pneumoniae Trimethoprim/Sulfa MICROSCAN METHOD Sensitive Streptococcus pneumoniae Vancomycin MICROSCAN METHOD Sensitive Rusty Gong MD MICROBIOLOGY - GENE RAL ORDERABLES Performing Organization Address City/[facility]/ZIP Co de Phone Number [facility] [place] [address] * Fungus culture Abscess (01/10/2021 11:30 PM EDT) Fungus Culture No Fungus isolated [facility] Abscess 01/10/2021 11:3 0 PM EDT 01/11/2021 12:28 AM EDT Comment:RIGHT NECK ABSCESS Narrative Resulting Agency Comment Spec In Lab Rusty Gong MD MICROBIOLOGY - GENE [employer] ORDERABLES Performing Organization Address [facility] Co de Phone Number [facility] [place] [address] * (ABNORMAL) Rapid Drug Screen w/o Confirmation, Urine (01/10/2021 8:47 PM EDT) Barbiturates Screen, Urine None Detected None Detected [facility] Comment: The barbiturate screen detects [...] Benzodiazepines Screen, Urine None Detected None Detected [facility] Comment: The benzodiazepines screen detects [...] Cocaine Screen, Urine None Detected None Detected [facility] Comment: The cocaine metabolites screen detects benzoylecgonine (Cocaine Metabolite) at concentrations >150 ng/mL. A ? Presumptive Positive? result indicates that the screening result was positive but has not yet been confirmed by a highly-specific method. As with any screen, occasional false positive results from cross-reacting substances may occur. Not for Medico-Legal Purposes. Methadone Metabolites Screen, Urine None Detected None Detected [facility] Comment: The methadone metabolite screen detects EDDP (major methadone metabolite) at concentrations >100 ng/mL. A ? Presumptive Positive? result indicates that the screening result was positive but has not yet been confirmed by a highly-specific method. As with any screen, occasional false positive results from cross-reacting substances may occur. Not for Medico-Legal Purposes. Opiate Screen, Urine None Detected None Detected [facility] Comment: The opiates screen detects [...] Cannabinoid Screen, Urine Presumptive Pos(A) None Detected [facility] Comment: The marijuana metabolites screen detects the THC metabolite (01-wyv-4-carboxy-delta 9-THC) at concentrations >20 ng/mL. A ? Presumptive Positive? result indicates that the screening result was positive but has not yet been confirmed by a highly-specific method. As with any screen, occasional false positive results from cross-reacting substances may occur. Not for Medico-Legal Purposes. Oxycodone Screen, Urine None Detected None Detected [facility] Comment: The oxycodone screen detects oxycodone and oxymorphone at concentrations >100 ng/mL. A ? Presumptive Positive? result indicates that the screening result was positive but has not yet been confirmed by a highly-specific method. As with any screen, occasional false positive results from cross-reacting substances may occur. Not for Medico-Legal Purposes. Buprenorphine Screen, Urine Presumptive Pos(A) None Detected [facility] Comment: The buprenorphine screen detects buprenorphine at concentrations >5 ng/mL. A ? Presumptive Positive? result indicates that the screening result was positive but has not yet been confirmed by a highly-specific method. As with any screen, occasional false positive results from cross-reacting substances may occur. Not for Medico-Legal Purposes. Fentanyl Screen, Urine None Detected None Detected [facility] Comment: The fentanyl screen detects fentanyl at concentrations >2 ng/mL. A ? Presumptive Positive? result indicates that the screening result was positive but has not yet been confirmed by a highly-specific method. As with any screen, occasional false positive results from cross-reacting substances may occur. Not for Medico-Legal Purposes. Tricyclics Screen, Urine None Detected None Detected [facility] Comment: The tricyclics screen detects [...] Ethanol Screen, Urine None Detected None Detected [facility] Comment:This urine ethanol a ssay detects ethanol at concentrations >/= 100 mg/L. Amphetamines Screen, Urine None Detected None Detected [facility] Comment: The amphetamine screen detects d-amphetamine and d-methamphetamine at concentrations >300 ng/mL. A ? Presumptive Positive? result indicates that the screening result was positive but has not yet been confirmed by a highly-specific method. As with any screen, occasional false positive results from cross-reacting substances may occur. Not for Medico-Legal Purposes. Adulterants Screen, Urine None Detected None Detected [facility] Comment: No adulteration or dilution of this urine sample was detected. All urine samples submitted for urine drugs of abuse analysis are tested for creatinine concentration, pH, and for the presence of oxidants, nitrites, and chromate. Urine 01/10/2021 8:47 PM EDT 01/10/2021 8:57 PM EDT Narrative Resulting Agency Comment Spec In Lab Jairo Pickett MD CHEMISTRY ORDERABLE S [facility] [place] [address] * Rapid Drug Screen, Urine (DAR Request) (01/10/2021 8:47 PM EDT) DAR Conf Requested No [facility] DAR Requested See Comment [facility] Comment:Refer to Rapid Drug Screen w/o Confirmation, Urine for results. Urine 01/10/2021 8:47 PM EDT 01/10/2021 8:57 PM EDT Narrative Resulting Agency Comment Spec In Lab Bee Malone MD URINE ORDERABLES [facility] [place] [address] * CT Neck Soft Tissue w Contrast [...] have questions please contact the health healthcare corporate account director that requested your imaging first. ? Narrative [...] who have questions please contactthe health healthcare corporate account director that requested your imaging first. Bee Malone MD IMG CT ORDERABLES * Blood culture (01/10/2021 4:25 PM EDT) Blood Culture No growth at [address] [facility] Blood PERIPHERAL BLOOD / Unknown 01/10/2021 4:25 PM EDT 01/10/2021 5:03 PM EDT Comment:#2 RIGHT Narrative Resulting Agency Comment Spec In Lab Bee Malone MD MICROBIOLOGY - BLOOD ORDERABLES Performing Organization Address City/[facility]/ZIP Co de Phone Number [facility] [place] [address] * Blood culture (01/10/2021 3:38 PM EDT) Blood Culture No growth at [address] [facility] Blood STRUCTURE OF RIGHT FOREARM / Unknown 01/10/2021 3:38 PM EDT 01/10/2021 3:58 PM EDT Comment:#1 Narrative Resulting Agency Comment Spec In Lab Bee Malone MD MICROBIOLOGY - BLOOD ORDERABLES Performing Organization Address City/[facility]/ZIP Co de Phone Number [facility] [place] [address] * Scan, Peripheral Blood (01/10/2021 3:36 PM EDT) Plat estimate Increased [facility] RBC Morphology Normal [facility] Blood 01/10/2021 3:36 PM EDT 01/10/2021 3:47 PM EDT Narrative Resulting Agency Comment Spec In Lab Jairo Pickett MD HEMATOLOGY ORDERABL ES Performing Organization Address City/[facility]/ZIP Co de Phone Number [facility] [place] [address] * Gold Tube HOLD (01/10/2021 3:36 PM EDT) Gold Hold Sample in lab. [facility] Blood Venous Draw / Unknown 01/10/2021 3:36 PM EDT 01/10/2021 3:38 PM EDT Jairo Pickett MD CHEMISTRY ORDERABLE S Performing Organization Address City/[facility]/ZIP Co de Phone Number [facility] [place] [address] * (ABNORMAL) Differential, Automated (01/10/2021 3:36 PM EDT) Neutrophil % 72.8 % [facility] Neutrophil Absolute 11.25(H) 1.70 - 6.10 x10(3)/mc L [facility] Lymph % 13.7 % [facility] Lymphocytes Abs 2.1 0.9 - 3.2 x10(3)/[facility] Monocyte % 10.8 % [facility] Monocyte Abs 1.7(H) 0.3 - 0.9 x10(3)/[facility] Eos % 1.6 % [facility] Eosinophils Abs 0.2 0.0 - 0.4 x10(3)/[facility] Basophil % 0.7 % [facility] Baso Absolute 0.1 0.0 - 0.1 x10(3)/[facility] Immature Gran % 0.40 % [facility] Comment: Immature granulocytes(IG's)percentage and absolute count will include metamyelocytes, myelocytes, and promyelocytes. Blood smears from CBCs yielding IG's will be scanned manually for concordance. If this scan disagrees with the automated IG or if promyelocytes are noted, a manual differential will be performed. Immature Gran Absolute 0.06(H) 0.00 - 0.04 x10(3)/ L [facility] Blood 01/10/2021 3:36 PM EDT 01/10/2021 3:38 PM EDT Narrative Resulting Agency Comment Spec In Lab Jairo Pickett MD HEMATOLOGY ORDERABL ES Performing Organization Address City/[facility]/ZIP Co de Phone Number [facility] [place] [address] * (ABNORMAL) Hemogram (01/10/2021 3:36 PM EDT) [facility] White Blood Cell 15.4(H) 4.0 - 9.5 x10(3)/[facility] Red Blood Cell 4.48(L) 4.58 - 5.54 x10(6)/[facility] Hemoglobin 13.2(L) 13.7 - 16.5 gm/dL [facility] Hematocrit 41.2 40.5 - 48.5 % [facility] Mean Cell Volume 92.0 82.9 - 93.[address] [facility] Mean Cell Hemoglobin 29.5 27.5 - 32.[address] [facility] Mean Cell Hemoglobin Concentration 32.0 32.0 - 35.7 gm/dL [facility] Platelet 387(H) 145 - 357 x10(3)/[facility] RDW Standard Deviation 42.7 36.0 - 45.0 [facility] RDW coefficient of variation 12.6 11.4 - 13.8 % [facility] Mean Platelet Volume 10.4 7.6 - 12.9 [facility] NRBC% auto 0.0 % [facility] NRBC Absolute 0.000 0.000 - 0.000 x10(3)/[facility] Blood 01/10/2021 3:36 PM EDT 01/10/2021 3:38 PM EDT Narrative Resulting Agency Comment Spec In Lab Jairo Pickett MD HEMATOLOGY ORDERABL ES [facility] [place] [address] * (ABNORMAL) Hepatic Function Panel (01/10/2021 3:36 PM EDT) [facility] Protein, Total 8.5(H) 6.1 - 8.0 gm/dL [facility] Albumin 4.3 3.2 - 5.2 gm/dL [facility] Aspartate Aminotransferase 13 0 - 39 unit/L [facility] Alanine Aminotransferase 12 0 - 55 unit/L [facility] Alkaline Phosphatase 77 40 - 130 unit/L [facility] Bilirubin, Total 0.4 0.2 - 1.3 mg/dL [facility] Bilirubin, Direct 0.1 0.0 - 0.3 mg/dL [facility] Blood 01/10/2021 3:36 PM EDT 01/10/2021 3:38 PM EDT Narrative Resulting Agency Comment Spec In Lab Bee Malone MD CHEMISTRY ORDERABLES [facility] [place] [address] * (ABNORMAL) Basic Metabolic Panel (non-fasting) (01/10/2021 3:36 PM EDT) Glucose 95 65 - 199 mg/dL [facility] Comment:Diabetes: >=200 mg/d L plus symptoms Blood Urea Nitrogen 8(L) 10 - 20 mg/dL [facility] Creatinine 0.93 0.80 - 1.50 mg/dL [facility] Sodium 138 135 - 145 mmol/L [facility] Potassium 4.0 3.5 - 5.0 mmol/L [facility] Comment: Please note: ??Patients with WBC >100,000 may have falsely elevated Potassium levels. ??For accurate Potassium quantification in these patients send serum separator tube (gold top) for subsequent determinations. ??Contact the Clinical Chemistry Laboratory if there are any questions. Chloride 100 98 - 107 mmol/L [facility] Carbon Dioxide 24 22 - 31 mmol/L [facility] Anion Gap 14 5 - 15 mmol/L [facility] Calcium 10.1 8.5 - 10.5 mg/dL [facility] Est Glomerular Filtration Rate 101 >=60 mL/min/1. 73 m?? [facility] Comment: This patient? s estimated [...] In Lab Bee Malone MD CHEMISTRY ORDERABLES [facility] [place] [address] documented in this encounter Visit Diagnoses Diagnosis [...] 0230, Until Discontinued 0229 (Given - Provider: Voileta Singer RN)1004 (Given - Provider: Bea Frost [...] RN) 2099 (Not Given - Provider: Jason Veag RN - Reason: Patient/family refused - Comment: [...] (dose and location) verified - Provider: Jason Veag RN) 0900 (Patch (dose and location) verified [...] documented in this encounter Care Teams Manager Bench Relationship Specialty Start Date End Date Laura Ho MD [address] [place] [id number] PCP - General Family Medicine 06/28/16 documented as of this encounter
--- OUTSIDE RECORDS SUMMARY | 2024-07-06 00:49 | XMS_ITS | Encounter Summary ---
Author Organization [facility] Address [facility] [place] [place] [address] Care Team Providers Care Parcel Post Order Clerk Name Role Phone Laura Ho MD Primary Care Provider [phone] Reason for Visit * Reason Onset Date Comments Appointment 10/28/2021 Encounter Details Date Type Department Care Team (Late st Contact Info) Description 10/28/2021 [place] [phone] Gorge Edgar MD [facility] [place] [address] Appointment Social History Tobacco Use Types Packs/Day [...] on filedocumented in this encounter Care Teams Parcel Post Order Clerk Relationship Specialty Start Date End Date Laura Ho MD [address] [place] [address] PCP - General Family Medicine 06/28/16 documented as of this encounter
--- OUTSIDE RECORDS SUMMARY | 2024-07-06 00:49 | XMS_ITS | Encounter Summary ---
Author Organization [facility] Address [facility] [address] Care Team Providers Care School Based Therapist Name Role Phone Laura Ho MD Primary Care Provider [phone] Encounter Details Date Type Department Care Team (Late st Contact Info) Description 11/05/2021 2:15 PM EDT Ancillary Procedure Radiology Library at [facility] [place] [id number] Laura Ho MD [address] [place] [address] Social History Tobacco Use Types Packs/Day Years [...] Ho MD IMG FILM LIBRARY ORD ERABLES [place], [place] documented in this encounter Visit Diagnoses Not on filedocumented in this encounter Care Teams School Based Therapist Relationship Specialty Start Date End Date Laura Ho MD [address] [place] [address] PCP - General Family Medicine 06/28/16 documented as of this encounter
--- OUTSIDE RECORDS SUMMARY | 2024-07-06 00:49 | XMS_ITS | Encounter Summary ---
Author Organization [facility] Address [facility] [place] [address] Care Team Providers Care Hall Manager Name Role Phone Laura Ho MD Primary Care Provider [phone] Reason for Visit * Auth/Cert Specialty Diagnoses / Procedures Referred By Govind townsend Referred To Contact Diagnoses Neck abscess Procedures ER IPI Admit Referral ID Status Reason Start Date Expiration Date Visits Re quested Visits Authorized [id number] 1 1 Encounter Details Date Type Department Care Team (Late st Contact Info) Description 01/10/2021 10:42 PM EDT Anesthesia Event [place] [address] Micah Ko MD [facility] DR [place] [address] Matteo Campuzano MD Anesthesia Record Procedure Summary Procedure Name Responsible Anesthesiologist Anesthesia Start Time Anesthesia Stop Time I & D DEEP ABSCESS OR HEMATOMA, NECK (WRVU 3.98) (Right: Neck) Micah Ko MD 01/10/21 2242 01/11/21 0015 Events Date Time Event Comment 01/10/2021 2224 2242 AN Verify 2242 Start 2242 An Start Data 2247 An Induction 2251 An Intubation 2251 Anesthesia Ready 2321 Procedure Start 01/11/2021 0004 Extubation/LMA Out 0005 an stop data 0015 Recovery or ICU Handoff Lisa ent care [...] Fr Bob Draine) 01/10/21 2348 by Luzmaria Braxton, RN Incision 09/15/20; 1150; abdo men; laparoscopic punctures (specify) (x 3 sites); 01/11/21; 0152 09/15/20 1150 by Michaelle Deshpande RN 01/11/21 0152 by Violeta Singer RN (RETIRED) Peripheral IV Line - Single Lumen 01/10/21; 1510; cephalic vein (lateral side of arm), right; [id number] catheter system; Ultrasound Guidance; 18 gauge; JRM; [...] Procedure Summary Date: 01/10/21 Room / Location: [facility] MAIN OR Anesthesia Start: 2241 Anesthesia Stop: 01/11/2114 Procedure: I & D DEEP ABSCESS OR HEMATOMA, NECK (WRVU 3.98) (Right Neck) Diagnosis: (Neck abscess) Surgeons: Nelson Gong MD Responsible Provider: Micah Ko MD Anesthesia Type: general ASA Status: 3 - Emergent All Anesthesia Providers: Anesthesiologist: Micah Ko MD Technical Sales Support Specialist: Matteo Campuzano MD Vitals Value Taken Time BP Temp Pulse Resp SpO2 Pain Level Patient Location: PACU/[facility] Level of Consciousness: Awake and Alert [...] 11.47) performed by Jorge Luis Rios MD [facility] MAIN OR Social History Tobacco Use ??? [...] Physical Exam: Preprocedure Vitals Current as of 01/10/212 BP: Pulse: Resp: 14 SpO2: 97 Temp: [...] mg documented in this encounter Care Teams Hall Manager Relationship Specialty Start Date End Date Laura Ho MD [address] [place] [address] PCP - General Family Medicine 06/28/16 documented as of this encounter
--- OUTSIDE RECORDS SUMMARY | 2024-07-06 00:49 | XMS_ITS | Encounter Summary ---
Author Organization [facility] Address [facility] [place] [address] Care Team Providers Care Radial Drill Press Operator Name Role Phone Laura Ho MD Primary Care Provider [phone] Encounter Details Date Type Department Care Team [...] on filedocumented in this encounter Care Teams Radial Drill Press Operator Relationship Specialty Start Date End Date Laura Ho MD [address] [place] [address] PCP - General Family Medicine 06/28/16 documented as of this encounter
--- OUTSIDE RECORDS SUMMARY | 2024-07-06 00:49 | XMS_ITS | Encounter Summary ---
Author Organization [facility] Address [facility] [place] [address] Care Team Providers Care Clinical Social Work Therapist Name Role Phone Laura Ho MD Primary Care Provider [phone] Encounter Details Date Type Department Care Team (Late st Contact Info) Description 11/28/2023 7:35 PM EDT Ancillary Procedure Radiology Library [place] [phone] Breonna Hebert MD [facility] [place] [address] Social History Tobacco Use Types Packs/Day Years [...] Hebert MD G FILM LIBRARY ORD ERABLES [place], [place] documented in this encounter Visit Diagnoses Not on filedocumented in this encounter Care Teams Clinical Social Work Therapist Relationship Specialty Start Date End Date Laura Ho MD [address] [place] [address] PCP - General Family Medicine 06/28/16 documented as of this encounter
--- OUTSIDE RECORDS SUMMARY | 2024-07-06 00:49 | XMS_ITS | Encounter Summary ---
Author Organization [facility] Address [facility] [place] [address] Care Team Providers Care Live Ammunition Inspector Name Role Phone Laura Ho MD Primary Care Provider [phone] Encounter Details Date Type Department Care Team (Latest Contact Info) Description 01/16/2021 8:00 AM EDT TH Visit (TeleHealth) [place] [address] Stephanie Porter APRN [facility] [place] [address] Postoperative examination Social History Tobacco Use Types [...] Porter APRN - 01/16/2021 8:00 AM EDT [facility] OTOLARYNGOLOGY TELEPHONE VISIT Harvey Espinosa is a [...] surgery documented in this encounter Care Teams Live Ammunition Inspector Relationship Specialty Start Date End Date Laura Ho MD [address] [place] [address] PCP - General Family Medicine 06/28/16 documented as of this encounter
--- OUTSIDE RECORDS SUMMARY | 2024-07-06 00:49 | XMS_ITS | Encounter Summary ---
Author Organization [facility] Address [facility] [place] [address] Care Team Providers Care Fish Drier Name Role Phone Laura Ho MD Primary Care Provider [phone] Reason for Visit * Reason Comments Medication Refill Encounter Details Date Type Department Care Team (Late st Contact Info) Description 09/19/2020 [place] [address] Harvey Roblero, PA [facility] [place] [address] Social History Tobacco Use Types Packs/Day Years [...] on filedocumented in this encounter Care Teams Fish Drier Relationship Specialty Start Date End Date Laura Ho MD [address] [place] [address] PCP - General Family Medicine 06/28/16 documented as of this encounter
--- OUTSIDE RECORDS SUMMARY | 2024-07-06 00:49 | XMS_ITS | Encounter Summary ---
Author Organization [facility] Address [facility] [address] [place] [address] Care Team Providers Care Consulting Property Manager Name Role Phone Laura Ho MD Primary Care Provider [phone] Reason for Visit * Reason Comments Abscess R side neck Encounter Details Date Type Department Care Team (Late st Contact Info) Description 12/02/2023 5:48 PM EDT - 12/03/2023 2:10 AM EDT [place] [address] Yfn Silverman MD [facility] [place] [address] Abscess, neck Discharge Disposition: Home Social History [...] states that he was recently seen at [facility] 2 days ago and given IV [...] have questions please contact the health career education teacher that requested your imaging first. SSMENT & [...] last week. Patientwas previously seen at an [facility] and was admitted for IV antibiotics [...] Espinosa Age/Sex: 43 y.o. male ENT Attending: [facility] Day: 2 History of Present Illness We [...] states that he was recently seen at [facility] 2 days ago and given IV [...] 3.98) performed by Nelson Gong MD at [facility] MAIN OR PRO LAP, CHOLECYSTECTOMY/GRAPH N/A 09/15/2020 LAPAROSCOPIC CHOLECYSTECTOMY WITH CHOLANGIOGRAM ([facility] 11.47) performed by Jorge Luis Rios MD [facility] MAIN OR Medications & Allergies No current [...] nightly. Pcn [penicillins] Social History [place] [facility] [id number] Social History Socioeconomic History Marital status: Spouse [...] with right sided neck absess; Sending Institution [facility]; Date of exam 20231128; I believe [...] week. __ Carina MD Azar, PGY-5, Pager [phone] 12/03/23 12:31 AM ENT Team Pager: [phone] Associated attestation - Johnson Griffith MD - [...] this encounter Results * MRSA PCR Screen ([facility]/CGP/APD/NLH) (12/03/2023 2:00 AM EDT) MRSA PCR Negative Negative [facility] MRSA (Interp) Methicillin-resist ant Staphylococcus aureus (MRSA) is NOT DETECTED The MRSA target DNA sequences (mec and SCC) were not detected within the acceptable ranges using the Xpert MRSA NxG on the GeneXpert Dx System (DeciZium). This suggests the absence of MRSA in the patient specimen submitted for testing. This test is cleared by the U.S. Food and Drug Administration for clinical use and its performance characteristics have been verified by the [facility] at [facility]. This result does not rule out the presence of any other organisms. Rare false negative results may occur if MRSA is present at low concentrations with much higher concentrations of other organisms including MRSE or S. aureus with an empty SCC cassette. [facility] Comment: [VERIFIED DATE]12.04.23 Verified By:Holley Nash (Electronic Signature) Nasopharyngeal Swab 12/03/19 2:00 AM EDT 12/03/2023 3:02 PM EDT Comment:Specimen Type->Nasop haryngeal Swab Narrative Resulting Agency Comment Spec In Lab Jeff Yung DIRECTOR OF ENTERTAINMENT MOLECULAR ORDERABLES [facility] [place] [address] * Request For 2nd Read CT Neck (12/02/2023 8:01 PM EDT) WORKSTATION ID [id number] RAD Anatomical Region Laterality Modality Neck SO [...] have questions please contact the health career education teacher that requested your imaging first. ? Electronically signed by: Collins Nicholson MD[facility] ([phone]), at 12/02/2023 8:53 PM Narrative 12/02/2023 8:53 PM EDT EXAMINATION: REQUEST FOR 2ND READ CT NECK CLINICAL HISTORY: 43 y.o. male with right sided neck absess; Sending Institution [facility]; Date of exam 20231128; I believe [...] y.o. male with right sided [facility] absess[facility] 20[facility]128; I believe a [...] irregular rim-enhancing collection visible on the study [id number]. The appearance of this collection is nonspecific [...] who have questions please contactthe health career education teacher that requested your imaging first. Electronically signed by: Collins Nicholson MD, [facility]([phone]), at 12/02/2023 8:53 PM Yfn Silverman MD IMG OUTSIDE INTERP RETATION ORDERABLES * (ABNORMAL) Differential, Automated (12/02/2023 5:40 PM EDT) Neutrophil % 65.5 % [facility] Neutrophil Absolute 5.91 1.70 - 6.10 x10(3)/ L [facility] Lymph % 23.4 % [facility] Lymphocytes Abs 2.1 0.9 - 3.2 x10(3)/ L [facility] Monocyte % 6.2 % [facility] Monocyte Abs 0.6 0.3 - 0.9 x10(3)/ L [facility] Eos % 3.2 % [facility] Eosinophils Abs 0.3 0.0 - 0.4 x10(3)/[facility] Basophil % 1.0 % [facility] Baso Absolute 0.1 0.0 - 0.1 x10(3)/ L [facility] Immature Gran % 0.70 % [facility] Comment: Immature granulocytes(IG's)percentage and absolute count will include metamyelocytes, myelocytes, and promyelocytes. Blood smears from CBCs yielding IG's will be scanned manually for concordance. If this scan disagrees with the automated IG or if promyelocytes are noted, a manual differential will be performed. Immature Gran Absolute 0.06(H) 0.00 - 0.04 x10(3)/ L [facility] Blood 12/02/2023 5:40 PM EDT 12/02/2023 5:49 PM EDT Narrative Resulting Agency Comment Spec In Lab Jeff Yung APRN HEMATOLOGY ORDERABLE S [facility] [place] [address] * Hemogram (12/02/2023 5:40 PM EDT) White Blood Cell 9.0 4.0 - 9.5 x10(3)/[facility] Red Blood Cell 4.98 4.58 - 5.54 x10(6)/[facility]ORY Hemoglobin 14.0 13.7 - 16.5 g/dL [facility] Hematocrit 43.1 40.5 - 48.5 % [facility] Mean Cell Volume 86.5 82.9 - 93.1 fL [facility] Mean Cell Hemoglobin 28.1 27.5 - 32.1 pg [facility] Mean Cell Hemoglobin Concentration 32.5 32.0 - 35.7 g/dL [facility] Platelet 334 145 - 357 x10(3)/[facility] RDW Standard Deviation 40.8 36.0 - 45.0 fL [facility] RDW coefficient of variation 12.8 11.4 - 13.8 % [facility] Mean Platelet Volume 9.9 7.6 - 12.9 fL [facility] NRBC% auto 0.0 % [facility] NRBC Absolute 0.000 0.000 - 0.000 x10(3)/[facility] Blood 12/02/2023 5:40 PM EDT 12/02/2023 5:49 PM EDT Narrative Resulting Agency Comment Spec In Lab Jeff Yung APRN HEMATOLOGY ORDERABLE S [facility] [place] [address] * (ABNORMAL) CRP, acute inflammation (12/02/2023 5:40 PM EDT) [facility] C-Reactive Protein 19.6(H) <=4.9 mg/L [facility] Blood 12/02/2023 5:40 PM EDT 12/02/2023 5:49 PM EDT Narrative Resulting Agency Comment Spec In Lab Jeff Yung APRN CHEMISTRY ORDERABLES Performing Organization Address [facility] Co de Phone Number [facility] [place] [address] * (ABNORMAL) Sedimentation rate (12/02/2023 5:40 PM EDT) [facility] Sedimentation Rate Automated 53(H) 2 - 28 mm/hr [facility] Comment: Effective June 20, 2019 new capillary photometric technology has resulted in a change in reference ranges. It is recommended that each ESR result be reviewed with its own age appropriate reference range. Blood 12/02/2023 5:40 PM EDT 12/02/2023 5:49 PM EDT Narrative Resulting Agency Comment Spec In Lab Jeff Yung APRN HEMATOLOGY ORDERABLE S Performing Organization Address [facility] Co de Phone Number [facility] [place] [address] * (ABNORMAL) Comprehensive metabolic panel (non-fasting) (12/02/2023 5:40 PM EDT) [facility] Glucose 90 65 - 199 mg/dL [facility] Comment:Diabetes: >=200 mg/d L plus symptoms Blood Urea Nitrogen 8(L) 10 - 20 mg/dL [facility] Creatinine 1.05 0.80 - 1.50 mg/dL [facility] Sodium 141 135 - 145 mmol/L [facility] Potassium 3.8 3.5 - 5.0 mmol/L [facility] Comment: Please note: ??Patients with WBC >100,000 may have falsely elevated Potassium levels. ??For accurate Potassium quantification in these patients send serum separator tube (gold top) for subsequent determinations. ??Contact the Clinical Chemistry Laboratory if there are any questions. Chloride 106 98 - 107 mmol/L [facility] Carbon Dioxide 25 22 - 31 mmol/L [facility] Anion Gap 10 5 - 15 mmol/L [facility] Calcium 10.0 8.5 - 10.5 mg/dL [facility] Protein, Total 7.7 6.1 - 8.0 g/dL [facility] Albumin 4.5 3.2 - 5.2 g/dL [facility] Aspartate Aminotransferase 12 0 - 39 unit/L [facility] Alanine Aminotransferase 12 0 - 55 unit/L [facility] Alkaline Phosphatase 88 40 - 130 unit/L [facility] Bilirubin, Total 0.2 0.2 - 1.3 mg/dL [facility] Est Glomerular Filtration Rate 89 >=60 mL/min/1. 73 m?? [facility] Comment: This patient's estimated GFR [...] In Lab Jeff Yung APRN CHEMISTRY ORDERABLES [facility] [place] [address] * Blood culture (12/02/2023 5:40 PM EDT) Blood Culture No growth at 5 days. [facility] Blood ANTECUBITAL REGION STRUCTURE / Unknown 12/02/2023 5:40 PM EDT 12/02/2023 6:18 PM EDT Narrative Resulting Agency Comment Spec In Lab Jeff Yung DIRECTOR OF ENTERTAINMENT MICROBIOLOGY - BLOOD ORDERABLES [facility] [place] [address] documented in this encounter Visit Diagnoses Diagnosis [...] , Routine 0047 (Given - Provid er: aLxmi Redding RN - Comment: Handed off to ENT provider for procedure) prazosin (Minipress) capsule 2 mg 2 mg, Oral, NIGHTLY, First dose on Tue12/02/23 at 2258, Until Discontinued, Routine 2328 (Given - Provider: Laxmi Redding RN) documented in this encounter Care Teams Consulting Property Manager Relationship Specialty Start Date End Date Laura Ho MD [address] [place] [address] PCP - General Family Medicine 06/28/16 documented as of this encounter
--- OUTSIDE RECORDS SUMMARY | 2024-07-06 00:49 | XMS_ITS | Encounter Summary ---
Author Organization [facility] Address [facility] [place] [address] Care Team Providers Care Irrigation Service Technician Name Role Phone Laura Ho MD Primary Care Provider [phone] Reason for Visit * Reason Comments Abscess right neck Head Injury 4 days ago * Auth/Cert Specialty Diagnoses / Procedures Referred By Govind t Referred To Contact Diagnoses Neck abscess Procedures ER IPI Admit Referral ID Status Reason Start Date Expiration Date Visits Re quested Visits Authorized [id number] 1 1 Encounter Details Date Type Department Care Team (Late st Contact Info) Description 01/10/2021 11:30 PM EDT - 01/11/2021 1:19 AM EDT [place] [id number] Rusty Gong MD [facility] [place] [address] I & D DEEP ABSCESS OR HEMATOMA, [...] who have questions please contact the health medicare compliance auditor that requested your imaging first. Discharge Info [...] -You can reach the ENT clinic at [phone] for appointment questions. -The ENT triage nurse is available at [phone] -For urgent issues during evenings (5 PM - 7 AM) and weekends the ENT resident plant operator control room operator can be reached through the main hospital mold yard crane operator at [phone] Follow Up: You will need to follow [...] and Relapse Prevention Resources Residential Treatment: Tello Cromwell [address] [place], [place] [id number] [address] [address] Intensive Outpatient Programs: [facility] [address] [place], [place] [facility] [address] [place] [address] Individual Therapy: [facility] [address] [facility], [place] [facility] [address] [place] [address] You may also search www.Special Network Services.Lantos Technologies or dial 211 for therapists in your area. Medication Assisted Treatment: [facility] [address] [place] [address] [place] [address] [facility] [address] [place] [address] [place] [address] Peer Support Groups Alcoholics Anonymous (AA) [place]: , www.Britelyaa.net Narcotics Anonymous (NA) [place]: , www.Peppercoinana.org Online AA and NA Meetings AA, NA, Refuge Recovery, SMART Recovery www.Innoviti AA Video Meetings www.aa-intergroup.org/directory_audio-video.php AA Text Chat Meetings www.aa.intergroup.org/directory.php NA Video Meetings www.virtual-na.org/meetings NA Text Chat Meetings Www.Actinobac Biomedalone1-4 Allub.org SMART Recovery Meetings via Zoom 5:00-6:00pm, free and open to all To join Zoom meetin. Visit www.Cloudadmin.Lantos Technologies 2. Click on calendar on top of toolbar 3. Find the correct meeting date and time 4. Click the zoom link and enter password provided 211: Your Connection to Recovery HUBS Dial 2-1-1 from anywhere in [place] 31/01 to be connected with a mental health professional who can refer you to your local HUB for evaluation and referral to appropriate substance use treatment. Safe Station Present to any one of the fire stations in [place] or [facility], now designated as ???Safe Stations?? , a place where you can walk in 31/01, and get connected with substance use treatment services. [facility] Safe Stations Central Fire Station: [address] [facility] --- Station 2: [address] Station 3: [address] --- Station 4: [address] Station 5: [address] --- Station 6: [address] Station 7: [address]--- Station 8: [address] [facility] XOR.MOTORS [facility] Station 9: [address]--- Station 10: [facility] Safe Stations Station 1: [address] --- Station 2: [address] --- Station 3: [address] Station 4: [address] --- Station 5: [address] -- Station 6: [address] Station 7: [address] Additional Resources Www.vtaddictionservices.org www.healthvermont.gov/alcohol-drugs www.kahoejq201.org/ (Search for Substance Use) www.Frequency/ Www.rethinkingdrinking.niaaa.nih.gov/ www.samhsa.gov/bhrwuzniok-puxpvxvo-pyfrmyveq/oxlwggiuhhbp-ryiitin-quga/treatment -practitioner-auto body repair technician Opiate Overdose Prevention: www.prescribetoprevent.org National Suicide Prevention Hotline: (619) 159-GLRD (9085) NEW SYRINGE EXCHANGE PROTOCOL as of September Mobile operations by appointment. For more information about receiving supplies and naloxone or to schedule an appointment: [place] clients call and leave a message for Elli (ext. 105) or Johnson He (ext. 104). [place] clients call to speak with Johnson Zapata [...] is being approved. Online Stress Reduction Resources www.Fertility Focus.Lantos Technologies/videos-features/videos/ofqdobggk-ddmwymvas-7-7-8-breath/ www.iSpot.tvindSayHired, Inc.ord.org/2013/vhzniwpqy-zmhdlutut-ywbgmmx-moment/ www.Expii, Inc..Lantos Technologies/ www.mindful.org/ www.freeInfinetics Technologiesness.org/ __ Primary Care Doctor: Laura Ho MD [phone] Signed: Simran Pineda MD 01/13/2021 documented in this encounter Discharge Instructions * Discharge Instructions* Gonzales Wolfe, TALENT ACQUISITION PROJECT MANAGER - 01/13/2021 8:03 AM EDT Substance Use Treatment and Relapse Prevention Resources Residential Treatment: [address] [address] Intensive Outpatient Programs: [address] [facility] [address] [place] [address] Individual Therapy: [address] [facility] [address] [place] [address] You may also search www.Special Network Services.[employer] or DrAvailable for therapists in your area. Medication Assisted Treatment: [facility] [address] [place] [address] [facility] [address] [place] [address] [facility] [place] [address] Peer Support Groups Alcoholics Anonymous (AA) [place]: , www.nhaa.net Narcotics Anonymous (NA) [place]: , www.gmana.org Online AA and NA Meetings AA, NA, Refuge Recovery, SMART Recovery www.Innoviti AA Video Meetings www.aa-intergroup.org/directory_audio-video.php AA Text Chat Meetings www.aa.intergroup.org/directory.php NA Video Meetings www.virtual-na.org/meetings NA Text Chat Meetings Www.neveraloneclub.org SMART Recovery Meetings via Zoom 5:00-6:00pm, free and open to all To join Zoom meetin. Visit www.RainTree Oncology Services 2. Click on calendar on top of toolbar 3. Find the correct meeting date and time 4. Click the zoom link and enter password provided 211: Your Connection to Recovery HUBS Dial 2-1-1 from anywhere in [place] 31/01 to be connected with a mental health professional who can refer you to your local HUB for evaluation and referral to appropriate substance use treatment. Safe Station Present to any one of the fire stations in [place] or [facility], now designated as ???Safe Stations?? , a place where you can walk in 31/01, and get connected with substance use treatment services. [facility] Safe Stations Central Fire Station: [address] --- Station 2: [address] Station 3: [address] --- Station 4: [address] Station 5: [address] --- Station 6: [address] Station 7: [address]--- Station 8: [address] [facility] Station 9: [address]--- Station 10: [address] [facility] Safe Stations Station 1: [address] --- Station 2: [address] --- Station 3: [address] Station 4: [address] --- Station 5: [address] -- Station 6: [address] Station 7: [address] 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 For more information about receiving supplies and naloxone or to schedule an appointment: [place] clients call and leave a message for Elli (ext. 105) or Johnson He (ext. 104). [place] clients call to speak with Johnson Zapata [...] is being approved. Online Stress Reduction Resources www.Diasome/videos-features/videos/txpfvdtrs-ktqjaesls-1-7-8-breath/ www.Zave Networks.Acamica/2013/dtpxsnara-gtgyieohr-taduzix-moment/ www.boaconsulta.com/ www.mindful.org/ www.freemindfulness.org/ * Patient Instructions* Simran Pineda [...] -You can reach the ENT clinic at [phone] for appointment questions. -The ENT triage nurse is available at [phone] -For urgent issues during evenings (5 PM - 7 AM) and weekends the ENT resident plant operator control room operator can be reached through the main hospital mold yard crane operator at [phone] Follow Up: You will need to follow [...] PM EDT D/C planning: Team: ENT Pager: [phone] Pt to d/c home via private vehicle. Pt/team feel no d/c needs identified at this time, printed Bradley drain care instructions given to pt. Pt is aware of d/c plan. Sagrario Baker MSN, RN CM stereo equipment installer Office of Care Management Pager #[phone] * April Herrera RN - 01/13/2021 1:04 [...] and need dressing materials for his neck. CHEMICAL DEPENDENCY THERAPIST met with patient and life partner Luzmaria at bedside. Patient is looking forward to going home today. CHEMICAL DEPENDENCY THERAPIST provided patient with Last Dose Letter just [...] of assistance and support during this hospitalization. CHEMICAL DEPENDENCY THERAPIST updated bedside RN. SOLEDAD Gayle Inpatient [facility]sciences Claim Processor Phone: [phone] Pager: [phone] * Rusty Gong MD - 01/12/2021 12:16 [...] 3.98) performed by Rusty Gong MD at [facility] MAIN OR ??? PRO LAP, CHOLECYSTECTOMY/GRAPH N/A 09/15/2020 LAPAROSCOPIC CHOLECYSTECTOMY WITH CHOLANGIOGRAM (WRVU 11.47) performed by Jorge Luis Rios MD [facility] MAIN OR Medications & Allergies [...] nightly. Pcn [penicillins] Social History Lives in [place] [address] Social History Socioeconomic History ??? Marital status: [...] PGY4 01/12/21 12:16 PM ENT Team Pager: [phone] * Violeta Singer RN - 01/12/2021 3:12 [...] 3.98) performed by Rusty Gong MD at [facility] MAIN OR ??? PRO LAP, CHOLECYSTECTOMY/GRAPH N/A 09/15/2020 LAPAROSCOPIC CHOLECYSTECTOMY WITH CHOLANGIOGRAM (WRVU 11.47) performed by Jorge Luis Rios MD [facility] MAIN OR Medications & Allergies [...] nightly. Pcn [penicillins] Social History Lives in [place] [address] Social History Socioeconomic History ??? Marital status: [...] to incidentally remove the drains Neuro: tylenol hrenando, ibuprofen hernando, home suboxone, home psych meds CV: LEYDI Pulm: IS GI/FEN: Regular diet after surgery : LEYDI Endo: LEYDI Heme: LEYDI ID: Vancomycin/cefepime, f/u micro studies MSK: Up ad franko PPx: Lovenox, SCD Consults: None Dispo: Floor __ Kyle Still MD, PGY4 01/11/21 8:43 AM ENT Team Pager: [phone] ENT ATTENDING STAFF NOTE: I personally reviewed [...] 11.47) performed by Jorge Luis Rios MD [facility] MAIN OR Medications & Allergies [...] nightly. Pcn [penicillins] Social History Lives in [place] [address] Social History Socioeconomic History ??? Marital status: [...] PGY4 01/10/21 10:12 PM ENT Team Pager: [phone] ENT CONSULTATION- ATTENDING STAFF NOTE: The patient [...] internal jugular septic thrombophlebitis. Rusty Gong MD, [facility] Attending Staff documented in this encounter ED Notes * Colleen Swan RN - 01/10/2021 10:40 PM EDT Pt to OR with anesthsia * Mihaela Chang LPN - 01/10/2021 8:48 PM EDT Pt up and ambulated to bathroom to give a urine sample. updated pt and . * Berta Meek - 01/10/2021 8:39 PM EDT ABDOUL CANE FURNITURE MAKER ED: Length of Mobile Lounge Driver Or Operator services provided to ED patient:: 30 min How did the patient enter the program?: Other Did the patient consent to Mobile Lounge Driver Or Operator services?: No RC introduced self and role. Pt declined services at this time. Berta Anderson [facility] ED Recovery Support Pager # [phone] * Colleen Swan RN - 01/10/2021 7:50 [...] who have questions please contact the health medicare compliance auditor that requested your imaging first. Assessment and [...] 10:45 PM Jairo Pickett MD Resident 01/10/21 [id number] Associated attestation - Bee Malone MD - [...] Mr. 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 Motivated to cut-back on his alcohol use with the ongoing clinical support of outpatient counseling at [facility]. Interventions delivered: Consulted with care team Plan: 1. Patient plans to remain abstinent from IVDU with the ongoing clinical support of Suboxone assisted therapy at [facility] in [place]. 2. Patient plans to cut-back on his alcohol use with the ongoing clinical support of outpatient counseling at [facility]. Outstanding Discharge Needs: Patient reports that he [...] IV ABX, pain well controlled with tylenol. Bradley putting out scant drainage, changed once during [...] Tolerating regular diet. Voiding in bathroom. LBM INNOVATION MANAGER, pt refused senna/docusate today. Order to get up and ambulate independently. Continuing with vancomycin and cefepime. Serosanguineous and yellow drainage from Bradley, gauze changed x2 this shift. Pain to [...] medical record, and Patient, Significant Other This specifications writer introduced self/reviewed role; services accepted. Reason [...] Luzmaria Vegas as primary DPOAHC and his lldwrw-vz-kmf Juan [place]. Copies made and provided. A [...] Accessibility Concerns:None. Current DME: none Home Address: [address] [place] [address] Social & Family Supports: Patient reports he [...] Insurance: N/A Prescription Coverage: Yes Preferred Pharmacy: [id number] - [place], [place] - [address] [place] [address] [place] [address] [facility] [id number] [place] Status: Patient is a : unable to assess Primary Care Provider: Laura Ho MD [phone] Patient/Caregiver Goals of Treatment: To go home [...] know she was close. Patient also confirmed. CHEMICAL DEPENDENCY THERAPIST spoke with bedside RN and Charge. Will see about moving patient to a private (which would help per pt and partner Luzmaria), but she cannot spend the night. CHEMICAL DEPENDENCY THERAPIST left bedside RN information on Rest Easy [...] discharged on oral ABX or IVABX. Plan: CHEMICAL DEPENDENCY THERAPIST assisted patient with appointment of HC Agent form. CHEMICAL DEPENDENCY THERAPIST to provide patient with Last Doseletter. CHEMICAL DEPENDENCY THERAPIST provided bedside RN with information about Rest [...] of care planning. SOLEDAD Gayle [facility] Claim Processor Phone: [phone] Pager: [phone] * Plan of Care - Bea Frost RN - 01/11/2021 6:48 PM EDT OUTCOME EVALUATION NOTE: OUTCOME SUMMARY: Pt is A+Ox4, VSS on RA, nydia to upper 40's at times. Bradley to right neck with gauze and sleeve covering, steristrips intact to neck. Tolerating regular diet. Voiding in bathroom. Pain to neck has been fairly controlled with scheduled meds. Pt requested additional dose of toradol as well as higher dose of nicotine patch and addition of nicotine gum-request sent to ENT plant operator control room operator via Securechat. Pthas independent to ambulate order. [...] EVALUATION: * Consult Note - Harvey Gonzalez [facility] - 01/11/2021 4:02 AM EDT Clinical Pharmacist Note - VancFD Harvey Espinosa [id number] Harvey Espinosa is a 40 y.o. [...] Alternately, during off-hours (9p-7a) you may call [phone] to contact a pharmacist. Harvey Gonzalez RPH * Op Note - Rusty Gong MD - 01/11/2021 12:58 AM EDT [facility] Operative Note Patient Name: Harvey Espinosa : [id number] MR#: [id number] Case Date: 01/10/2021 - 01/11/2021 Surgeon: Surgeon(s) [...] Bundle used? N/A Kyle Still MD PGY-4 [facility] Otolaryngology Pager: [phone] Attestation: Case Date: 01/10/2021 - 01/11/2021 I [...] Or Hematoma Soft Tissue Neck Or Thorax (03401) 01/10/2021 10:42 PM EDT Neck abscess RAPID [...] EDT) Glucose 80 65 - 199 mg/dL [facility] Comment:Diabetes: >=200 mg/d L plus symptoms Blood Urea Nitrogen 9(L) 10 - 20 mg/dL [facility] Creatinine 1.05 0.80 - 1.50 mg/dL [facility] Sodium 137 135 - 145 mmol/L [facility] Potassium 4.1 3.5 - 5.0 mmol/L [facility] Comment: Please note: ??Patients with WBC >100,000 may have falsely elevated Potassium levels. ??For accurate Potassium quantification in these patients send serum separator tube (gold top) for subsequent determinations. ??Contact the Clinical Chemistry Laboratory if there are any questions. Chloride 102 98 - 107 mmol/L [facility] Carbon Dioxide 29 22 - 31 mmol/L [facility] Anion Gap 6 5 - 15 mmol/L [facility] Calcium 10.2 8.5 - 10.5 mg/dL [facility] Est Glomerular Filtration Rate 87 >=60 mL/min/1. 73 m?? [facility] Comment: This patient? s estimated [...] Lab Rusty Gong MD CHEMISTRY ORDERABLE S [facility] [place] [address] * (ABNORMAL) Differential, Automated (01/13/2021 3:45 AM EDT) Neutrophil % 46.7 % [facility] Neutrophil Absolute 3.07 1.70 - 6.10 x10(3)/ L [facility] Lymph % 34.2 % [facility] Lymphocytes Abs 2.2 0.9 - 3.2 x10(3)/[facility]ORATORY Monocyte % 7.5 % [facility] Monocyte Abs 0.5 0.3 - 0.9 x10(3)/[facility]OR[facility] Eos % 9.9 % [facility] Eosinophils Abs 0.6(H) 0.0 - 0.4 x10(3)/[facility]ORATORY Basophil % 1.4 % [facility] Baso Absolute 0.1 0.0 - 0.1 x10(3)/[facility]ORATORY Immature Gran % 0.30 % [facility] Comment: Immature granulocytes(IG's)percentage and absolute count will include metamyelocytes, myelocytes, and promyelocytes. Blood smears from CBCs yielding IG's will be scanned manually for concordance. If this scan disagrees with the automated IG or if promyelocytes are noted, a manual differential will be performed. Immature Gran Absolute 0.02 0.00 - 0.04 x10(3)/[facility]AT[facility] Blood 01/13/2021 3:45 AM EDT 01/13/2021 4:22 AM EDT Narrative Resulting Agency Comment Spec In Lab Kyle Still MD HEMATOLOGY ORDERAB LES [facility] [place] [address] * (ABNORMAL) Hemogram (01/13/2021 3:45 AM EDT) White Blood Cell 6.6 4.0 - 9.5 x10(3)/[facility] Red Blood Cell 4.46(L) 4.58 - 5.54 x10(6)/[facility] Hemoglobin 12.9(L) 13.7 - 16.5 gm/dL [facility] Hematocrit 40.7 40.5 - 48.5 % [facility] Mean Cell Volume 91.3 82.9 - 93.1 fL [facility] Mean Cell Hemoglobin 28.9 27.5 - 32.1 pg [facility] Mean Cell Hemoglobin Concentration 31.7(L) 32.0 - 35.7 gm/dL [facility] Platelet 409(H) 145 - 357 x10(3)/mc L [facility] RDW Standard Deviation 40.9 36.0 - 45.0 fL [facility] RDW coefficient of variation 12.2 11.4 - 13.8 % [facility] Mean Platelet Volume 10.1 7.6 - 12.9 fL [facility] NRBC% auto 0.0 % [facility] NRBC Absolute 0.000 0.000 - 0.000 x10(3)/mc L [facility] Blood 01/13/2021 3:45 AM EDT 01/13/2021 4:22 AM EDT Narrative Resulting Agency Comment Spec In Lab Kyle Still MD HEMATOLOGY ORDERAB LES Performing Organization Address City/State/[facility] Co de Phone Number [facility] [place] [address] * Vancomycin, trough (01/12/2021 12:08 PM EDT) Pathologist [facility] Vancomycin, Trough 8.5 mg/L [facility] Comment: Therapeutic range for complicated [...] Lab Rusty Gong MD CHEMISTRY ORDERABLE S [facility] [place] [address] * (ABNORMAL) Differential, Automated (01/12/2021 6:32 AM EDT) Neutrophil % 44.6 % [facility] Neutrophil Absolute 2.97 1.70 - 6.10 x10(3)/mc L [facility] Lymph % 34.5 % [facility] Lymphocytes Abs 2.3 0.9 - 3.2 x10(3)/ L [facility] Monocyte % 9.6 % [facility] Monocyte Abs 0.6 0.3 - 0.9 x10(3)/ L [facility] Eos % 9.6 % [facility] Eosinophils Abs 0.6(H) 0.0 - 0.4 x10(3)/[facility]ORATORY Basophil % 1.3 % [facility] Baso Absolute 0.1 0.0 - 0.1 x10(3)/mc L [facility] Immature Gran % 0.40 % [facility] Comment: Immature granulocytes(IG's)percentage and absolute count will include metamyelocytes, myelocytes, and promyelocytes. Blood smears from CBCs yielding IG's will be scanned manually for concordance. If this scan disagrees with the automated IG or if promyelocytes are noted, a manual differential will be performed. Immature Gran Absolute 0.03 0.00 - 0.04 x10(3)/mc L [facility] Blood 01/12/2021 6:32 AM EDT 01/12/2021 6:45 AM EDT Narrative Resulting Agency Comment Spec In Lab Kyle Still MD HEMATOLOGY ORDERAB LES Performing Organization Address City/[facility]/ZIP Co de Phone Number [facility] [place] [address] * (ABNORMAL) Hemogram (01/12/2021 6:32 AM EDT) White Blood Cell 6.7 4.0 - 9.5 x10(3)/mc L [facility] Red Blood Cell 4.54(L) 4.58 - 5.54 x10(6)/mc L [facility] Hemoglobin 13.2(L) 13.7 - 16.5 gm/dL [facility] Hematocrit 42.6 40.5 - 48.5 % [facility] Mean Cell Volume 93.8(H) 82.9 - 93.1 fL [facility] Mean Cell Hemoglobin 29.1 27.5 - 32.1 pg [facility] Mean Cell Hemoglobin Concentration 31.0(L) 32.0 - 35.7 gm/dL [facility] Platelet 413(H) 145 - 357 x10(3)/mc L [facility] RDW Standard Deviation 44.1 36.0 - 45.0 [facility]ORATORY RDW coefficient of variation 12.7 11.4 - 13.8 % [facility] Mean Platelet Volume 10.3 7.6 - 12.9 [facility] LABORATORY NRBC% auto 0.0 % [facility] NRBC Absolute 0.000 0.000 - 0.000 x10(3)/mc L [facility] Blood 01/12/2021 6:32 AM EDT 01/12/2021 6:45 AM EDT Narrative Resulting Agency Comment Spec In Lab Kyle Still MD HEMATOLOGY ORDERAB LES Performing Organization Address City/[facility]/ZIP Co de Phone Number [facility] [place] [address] * Anaerobic Culture (01/10/2021 11:30 PM EDT) Anaerobic Culture No anaerobic organisms isolated [facility] Abscess NECK STRUCTURE / Unknown 01/10/2021 11:30 PM EDT 01/11/2021 12:28 AM EDT Comment:GRAM STAIN PLEASE Narrative Resulting Agency Comment Spec In Lab Rusty Gong MD MICROBIOLOGY - GENE RAL ORDERABLES Performing Organization Address [facility] Co de Phone Number [facility] [place] [address] * (ABNORMAL) Abscess/Wound Aspirate Culture (01/10/2021 11:30 PM EDT) Abscess/Wound Aspirate Culture Moderate Streptococcus pneumoniae(A) [facility] Gram Stain Many Neutrophils seen Many Gram Positive Cocci seen (A) [facility] Organism Streptococcus pneumoniae(A) [facility] Organism Gram Positive Cocci(A) [facility] Abscess NECK STRUCTURE / Unknown [...] SCAN METHOD Sensitive Streptococcus pneumoniae Penicillin (Nonmeningitis) OR CROSCAN METHOD Sensitive Comment: Penicillin susceptibility predicts susceptibility to Ampicillin, Ampicillin-Sulbactam, Amoxicillin, Amoxicillin-Clavulanate, Cefepime, Cefpodoxime, Cefprozil, Cefuroxime, Ceftriaxone and Meropenem. Streptococcus pneumoniae Tetracycline MICROSCAN METHOD Resistant Streptococcus pneumoniae Trimethoprim/Sulfa MICROSCAN METHOD Sensitive Streptococcus pneumoniae Vancomycin MICROSCAN METHOD Sensitive Rusty Gong MD MICROBIOLOGY - GENE RAL ORDERABLES Performing Organization Address City/[facility]/ZIP Co de Phone Number [facility] [place] [address] * Fungus culture Abscess (01/10/2021 11:30 PM EDT) Fungus Culture No Fungus isolated [facility] Abscess 01/10/2021 11:3 0 PM EDT 01/11/2021 12:28 AM EDT Comment:RIGHT NECK ABSCESS Narrative Resulting Agency Comment Spec In Lab Rusty Gong MD MICROBIOLOGY - GENE RAL ORDERABLES [facility] [place] [address] * (ABNORMAL) Rapid Drug Screen w/o Confirmation, Urine (01/10/2021 8:47 PM EDT) Barbiturates Screen, Urine None Detected None Detected [facility] Comment: The barbiturate screen detects [...] Benzodiazepines Screen, Urine None Detected None Detected [facility] Comment: The benzodiazepines screen detects [...] Cocaine Screen, Urine None Detected None Detected [facility] Comment: The cocaine metabolites screen detects benzoylecgonine (Cocaine Metabolite) at concentrations >150 ng/mL. A ? Presumptive Positive? result indicates that the screening result was positive but has not yet been confirmed by a highly-specific method. As with any screen, occasional false positive results from cross-reacting substances may occur. Not for Medico-Legal Purposes. Methadone Metabolites Screen, Urine None Detected None Detected [facility] Comment: The methadone metabolite screen detects EDDP (major methadone metabolite) at concentrations >100 ng/mL. A ? Presumptive Positive? result indicates that the screening result was positive but has not yet been confirmed by a highly-specific method. As with any screen, occasional false positive results from cross-reacting substances may occur. Not for Medico-Legal Purposes. Opiate Screen, Urine None Detected None Detected [facility] Comment: The opiates screen detects [...] Cannabinoid Screen, Urine Presumptive Pos(A) None Detected [facility] Comment: The marijuana metabolites screen detects the THC metabolite (77-zyt-6-carboxy-delta 9-THC) at concentrations >20 ng/mL. A ? Presumptive Positive? result indicates that the screening result was positive but has not yet been confirmed by a highly-specific method. As with any screen, occasional false positive results from cross-reacting substances may occur. Not for Medico-Legal Purposes. Oxycodone Screen, Urine None Detected None Detected [facility] Comment: The oxycodone screen detects oxycodone and oxymorphone at concentrations >100 ng/mL. A ? Presumptive Positive? result indicates that the screening result was positive but has not yet been confirmed by a highly-specific method. As with any screen, occasional false positive results from cross-reacting substances may occur. Not for Medico-Legal Purposes. Buprenorphine Screen, Urine Presumptive Pos(A) None Detected [facility] Comment: The buprenorphine screen detects buprenorphine at concentrations >5 ng/mL. A ? Presumptive Positive? result indicates that the screening result was positive but has not yet been confirmed by a highly-specific method. As with any screen, occasional false positive results from cross-reacting substances may occur. Not for Medico-Legal Purposes. Fentanyl Screen, Urine None Detected None Detected [facility] Comment: The fentanyl screen detects fentanyl at concentrations >2 ng/mL. A ? Presumptive Positive? result indicates that the screening result was positive but has not yet been confirmed by a highly-specific method. As with any screen, occasional false positive results from cross-reacting substances may occur. Not for Medico-Legal Purposes. Tricyclics Screen, Urine None Detected None Detected [facility] Comment: The tricyclics screen detects [...] Ethanol Screen, Urine None Detected None Detected [facility] Comment:This urine ethanol a ssay detects ethanol at concentrations >/= 100 mg/L. Amphetamines Screen, Urine None Detected None Detected [facility] Comment: The amphetamine screen detects d-amphetamine and d-methamphetamine at concentrations >300 ng/mL. A ? Presumptive Positive? result indicates that the screening result was positive but has not yet been confirmed by a highly-specific method. As with any screen, occasional false positive results from cross-reacting substances may occur. Not for Medico-Legal Purposes. Adulterants Screen, Urine None Detected None Detected [facility] Comment: No adulteration or dilution of this urine sample was detected. All urine samples submitted for urine drugs of abuse analysis are tested for creatinine concentration, pH, and for the presence of oxidants, nitrites, and chromate. Urine 01/10/2021 8:47 PM EDT 01/10/2021 8:57 PM EDT Narrative Resulting Agency Comment Spec In Lab Jairo Pickett MD CHEMISTRY ORDERABLE S [facility] [place] [address] * Rapid Drug Screen, Urine (DAR Request) (01/10/2021 8:47 PM EDT) DAR Conf Requested No [facility] DAR Requested See Comment [facility] Comment:Refer to Rapid Drug Screen w/o Confirmation, Urine for results. Urine 01/10/2021 8:47 PM EDT 01/10/2021 8:57 PM EDT Narrative Resulting Agency Comment Spec In Lab Bee Malone MD URINE ORDERABLES [facility] [place] [address] * CT Neck Soft Tissue w Contrast [...] who have questions please contact the health medicare compliance auditor that requested your imaging first. ? Narrative [...] patients who have questions please contactthe health medicare compliance auditor that requested your imaging first. Bee Malone MD IMG CT ORDERABLES * Blood culture (01/10/2021 4:25 PM EDT) Blood Culture No growth at 5 days. [facility] Blood PERIPHERAL BLOOD / Unknown 01/10/2021 4:25 PM EDT 01/10/2021 5:03 PM EDT Comment:#2 RIGHT Narrative Resulting Agency Comment Spec In Lab Bee Malone MD MICROBIOLOGY - BLOOD ORDERABLES Performing Organization Address [facility] Co de Phone Number [facility] [place] [address] * Blood culture (01/10/2021 3:38 PM EDT) Blood Culture No growth at 5 days. [facility] Blood STRUCTURE OF RIGHT FOREARM / Unknown 01/10/2021 3:38 PM EDT 01/10/2021 3:58 PM EDT Comment:#1 Narrative Resulting Agency Comment Spec In Lab Bee Malone MD MICROBIOLOGY - BLOOD ORDERABLES Performing Organization Address [facility] Co de Phone Number [facility] [place] [address] * Scan, Peripheral Blood (01/10/2021 3:36 PM EDT) Plat estimate Increased [facility] RBC Morphology Normal [facility] Blood 01/10/2021 3:36 PM EDT 01/10/2021 3:47 PM EDT Narrative Resulting Agency Comment Spec In Lab Jairo Pickett MD HEMATOLOGY ORDERABL ES Performing Organization Address [facility] Co de Phone Number [facility] [place] [address] * Gold Tube HOLD (01/10/2021 3:36 PM EDT) Gold Hold Sample in lab. [facility] Blood Venous Draw / Unknown 01/10/2021 3:36 PM EDT 01/10/2021 3:38 PM EDT Jairo Pickett MD CHEMISTRY ORDERABLE S Performing Organization Address City/[facility]/ZIP Co de Phone Number [facility] [place] [address] * (ABNORMAL) Differential, Automated (01/10/2021 3:36 PM EDT) Neutrophil % 72.8 % [facility] Neutrophil Absolute 11.25(H) 1.70 - 6.10 x10(3)/mc L [facility] Lymph % 13.7 % [facility] Lymphocytes Abs 2.1 0.9 - 3.2 x10(3)/ L [facility] Monocyte % 10.8 % [facility] Monocyte Abs 1.7(H) 0.3 - 0.9 x10(3)/ L [facility] Eos % 1.6 % [facility] Eosinophils Abs 0.2 0.0 - 0.4 x10(3)/[facility] Basophil % 0.7 % [facility] Baso Absolute 0.1 0.0 - 0.1 x10(3)/ L [facility] Immature Gran % 0.40 % [facility] Comment: Immature granulocytes(IG's)percentage and absolute count will include metamyelocytes, myelocytes, and promyelocytes. Blood smears from CBCs yielding IG's will be scanned manually for concordance. If this scan disagrees with the automated IG or if promyelocytes are noted, a manual differential will be performed. Immature Gran Absolute 0.06(H) 0.00 - 0.04 x10(3)/ L [facility] Blood 01/10/2021 3:36 PM EDT 01/10/2021 3:38 PM EDT Narrative Resulting Agency Comment Spec In Lab Jairo Pickett MD HEMATOLOGY ORDERABL ES Performing Organization Address [facility]/ZIP Co de Phone Number [facility] [place] [address] * (ABNORMAL) Hemogram (01/10/2021 3:36 PM EDT) Pathologist [facility] White Blood Cell 15.4(H) 4.0 - 9.5 x10(3)/ L [facility] Red Blood Cell 4.48(L) 4.58 - 5.54 x10(6)/ L [facility] Hemoglobin 13.2(L) 13.7 - 16.5 gm/dL [facility] Hematocrit 41.2 40.5 - 48.5 % [facility] Mean Cell Volume 92.0 82.9 - 93.1 fL [facility] Mean Cell Hemoglobin 29.5 27.5 - 32.1 pg [facility] Mean Cell Hemoglobin Concentration 32.0 32.0 - 35.7 gm/dL [facility] Platelet 387(H) 145 - 357 x10(3)/[facility] LABORATORY RDW Standard Deviation 42.7 36.0 - 45.0 [facility]ATORY RDW coefficient of variation 12.6 11.4 - 13.8 % [facility] Mean Platelet Volume 10.4 7.6 - 12.9 [facility] LABORATORY NRBC% auto 0.0 % [facility] NRBC Absolute 0.000 0.000 - 0.000 x10(3)/[facility] Blood 01/10/2021 3:36 PM EDT 01/10/2021 3:38 PM EDT Narrative Resulting Agency Comment Spec In Lab Jairo Pickett MD HEMATOLOGY ORDERABL ES [facility] [place] [address] * (ABNORMAL) Hepatic Function Panel (01/10/2021 3:36 PM EDT) Pathologist [facility] Protein, Total 8.5(H) 6.1 - 8.0 gm/dL [facility] Albumin 4.3 3.2 - 5.2 gm/dL [facility] Aspartate Aminotransferase 13 0 - 39 unit/L [facility] Alanine Aminotransferase 12 0 - 55 unit/L [facility] Alkaline Phosphatase 77 40 - 130 unit/L [facility] Bilirubin, Total 0.4 0.2 - 1.3 mg/dL [facility] Bilirubin, Direct 0.1 0.0 - 0.3 mg/dL [facility] Blood 01/10/2021 3:36 PM EDT 01/10/2021 3:38 PM EDT Narrative Resulting Agency Comment Spec In Lab Bee Malone MD CHEMISTRY ORDERABLES [facility] [place] [address] * (ABNORMAL) Basic Metabolic Panel (non-fasting) (01/10/2021 3:36 PM EDT) Glucose 95 65 - 199 mg/dL [facility] Comment:Diabetes: >=200 mg/d L plus symptoms Blood Urea Nitrogen 8(L) 10 - 20 mg/dL [facility] Creatinine 0.93 0.80 - 1.50 mg/dL [facility] Sodium 138 135 - 145 mmol/L [facility] Potassium 4.0 3.5 - 5.0 mmol/L [facility] Comment: Please note: ??Patients with WBC >100,000 may have falsely elevated Potassium levels. ??For accurate Potassium quantification in these patients send serum separator tube (gold top) for subsequent determinations. ??Contact the Clinical Chemistry Laboratory if there are any questions. Chloride 100 98 - 107 mmol/L [facility] Carbon Dioxide 24 22 - 31 mmol/L [facility] Anion Gap 14 5 - 15 mmol/L [facility] Calcium 10.1 8.5 - 10.5 mg/dL [facility] Est Glomerular Filtration Rate 101 >=60 mL/min/1. 73 m?? [facility] Comment: This patient? s estimated [...] In Lab Bee Malone MD CHEMISTRY ORDERABLES [facility] [place] [phone] documented in this encounter Visit Diagnoses Not [...] (Patch (dose and location) verified - Provider: eBa Frost RN)2100 (Patch (dose and location) verified [...] Patient/family refused)09 (Not Given - Provider: Bea rFost RN - Reason: Patient/family refused)2099 (Not Given [...] Provider: Jason Vega RN)223 (Stopped - Provider: aJson Vega RN) 0356 (New Bag - Provider: [...] draw. documented in this encounter Care Teams Irrigation Service Technician Relationship Specialty Start Date End Date Laura Ho MD [address] [place] [id number] PCP - General Family Medicine 06/28/16 documented as of this encounter
--- OUTSIDE RECORDS SUMMARY | 2024-07-06 00:49 | XMS_ITS | Encounter Summary ---
Author Organization [facility] [place] [address] Care Team Providers Care [employer] Name Role Phone Laura Ho MD Primary Care Provider [phone] Encounter Details Date Type Department Care Team (Late st Contact Info) Description 11/28/2023 Notes [place] [id number] Carina Askew MD Social History Tobacco Use Types Packs/Day [...] on filedocumented in this encounter Care Teams [employer] Relationship Specialty Start Date End Date Laura Ho MD [address] [place] [address] PCP - General Family Medicine 06/28/16 documented as of this encounter
--- OUTSIDE RECORDS SUMMARY | 2024-07-06 00:49 | XMS_ITS | Encounter Summary ---
Author [place] [address] Care Team Providers Care Commercial Account Officer Name Role Phone Luara Ho MD Primary Care Provider Reason for Referral * Consultation (Routine) - Closed Specialty Diagnoses / Procedures Referred By Contblossom t Referred To Contact Urology Diagnoses Testicular pain, left TESTICULAR PAIN- can see managed care liaison per MSG Laura Ho MD [address] [place] [address] [facility] [place] [address] Referral ID Status Reason Start Date Expiration Date V isits Requested Visits Authorized [id number] Closed Consult, Test & Treat PCP Updated and/or Approved 08/25/2022 08/25/2023 6 6 Encounter Details Date Type Department Care Team (Latest Contact Info) Description 08/25/2022 Transcribe Orders eD Incoming Referrals [phone] Laura Ho MD [address] [place] [address] Testicular pain, left Social History [...] organs documented in this encounter Care Teams Commercial Account Officer Relationship Specialty Start Date End Date Laura Ho MD [address] [place] [address] PCP - General Family Medicine 06/28/16 documented as of this encounter
--- OUTSIDE RECORDS SUMMARY | 2024-07-06 00:49 | XMS_ITS | Encounter Summary ---
Author Organization [facility] Address [facility] [place] [address] Care Team Providers Care Rig Builder Helper Name Role Phone Laura Ho MD Primary Care Provider [phone] Encounter Details Date Type Department Care Team [...] on filedocumented in this encounter Care Teams Rig Builder Helper Relationship Specialty Start Date End Date Laura Ho MD [address] [place] [address] PCP - General Family Medicine 06/28/16 documented as of this encounter
--- OUTSIDE RECORDS SUMMARY | 2024-07-06 00:49 | XMS_ITS | Encounter Summary ---
Author Organization [facility] Address [facility] [place] [address] Care Team Providers Care Pulp Tester Name Role Phone Laura Ho MD Primary Care Provider [phone] Encounter Details Date Type Department Care Team (Late st Contact Info) Description 02/09/2024 3:00 PM EDT Office [place] [address] Brayan Bess PA [facility] [place] [address] Neck abscess Social History Tobacco Use Types Packs/Day Years Used Date Smoking Tobacco: Every Day Cigarettes Smokeless Tobacco: Never Alcohol Use Standard Drinks/Week Comments Yes 6 (1 standard drink = 0.6 oz pur e alcohol) [facility] Inpatient Questions Answer Date Recorded Does Anyone [...] Bess PA - 02/09/2024 3:00 PM EDT [facility] OTOL[facility]OLOGY FOLLOW UP NOTE Harvey Espinosa is [...] in Mr. Espinosa's care. Brayan Bess PA-C [place], [place] [address] Office 02/09/2024 documented in this encounter Plan of Treatment Not on file documented as of this encounter Visit Diagnoses Diagnosis Neck abscess Cellulitis and abscess of neck documented in this encounter Care Teams Pulp Tester Relationship Specialty Start Date End Date Laura Ho MD [address] [place] [address] PCP - General Family Medicine 06/28/16 documented as of this encounter
--- OUTSIDE RECORDS SUMMARY | 2024-07-06 00:49 | XMS_ITS | Encounter Summary ---
Author Organization [facility] Address [facility] [place] [address] Care Team Providers Care Trial Lawyer Name Role Phone Laura Ho MD Primary Care Provider [phone] Reason for Visit * Reason Comments Abscess Encounter Details Date Type Department Care Team (Late st Contact Info) Description 02/05/2024 11:00 PM EDT - 02/06/2024 12:16 PM EDT [place] [address] Guille Hansen MD [facility] [place] [address] Johnson Rosales MD [facility] [place] [address] Neck abscess Discharge Disposition: Home Social History [...] and would like to go home. 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 Prescriptions were sent to [facility] and they will pick these [facility]. They [place] [address] north in [place]. Patient ultimately was discharged at hisrequest with [...] PANEL LACTATE, WHOLE BLOOD, SEND TO LAB ([facility] GREEN TUBE HOLD LAVENDER TUBE HOLD CT [...] questions please contact the health health care law specialist that requested your imaging first. Diagnosis: 1. Neck abscess Condition: Stable Disposition: [...] of 02/06/24 0904 TueFeb 06, 2024 0610 CONTRACT NEGOTIATOR >GC: 43yo PMH IV drug use, not [...] questions please contact the health health care law specialist that requested your imaging first. The visit findings, diagnosis, and care plan [...] up plan. Reji Lopez MD Resident 02/06/24 [id number] * Matteo Bill MD - 02/05/2024 11:54 [...] allergy list as well as start the [facility] protocol for his CT. Patient signed out [...] abscess. Briefly, he was previously seen by [facility] ENT for a R neck abscess (Strep [...] 3.98) performed by Nelson Gong MD at [facility] MAIN OR PRO LAP, CHOLECYSTECTOMY/GRAPH N/A 09/15/2020 LAPAROSCOPIC CHOLECYSTECTOMY WITH CHOLANGIOGRAM (WRVU 11.47) performed by Jorge Luis Rios MD [facility] MAIN OR Medications & Allergies No current [...] and Pcn [penicillins] Social History [place] [facility] [id number] Social History Socioeconomic History Marital status: Spouse [...] MD PGY2 02/06/24 6:55 AM Personal Pager: [phone] ENT Team Pager: [phone] documented in this encounter Plan of Treatment [...] AM EDT) Anaerobic Culture Many Prevotella denticola(A) [facility] Organism Prevotella denticola(A) [facility] Abscess NECK STRUCTURE / Unknown 02/06/2024 10:01 AM EDT 02/06/2024 10:29 AM EDT Narrative Resulting Agency Comment Spec In Lab Johnson Rosales MD MICROBIOLOGY - GENER AL ORDERABLES Performing Organization Address [facility]/ZIP Co de Phone Number [facility] [place] [address] * (ABNORMAL) Abscess/Wound Aspirate Culture (02/06/2024 10:01 AM EDT) Abscess/Wound Aspirate Culture Moderate Streptococcus milleri, anginosis group(A) [facility] Gram Stain Many Neutrophils seen Many Gram Positive Cocci seen Moderate Gram Negative Rods seen (A) [facility] Organism Streptococcus milleri, anginosis group(A) [facility] Organism Gram Positive Cocci(A) [facility] Organism Gram Negative Rods(A) [facility] Abscess NECK STRUCTURE [...] - GENER AL ORDERABLES Performing Organization Address [facility]/[place] [address] * CT Neck Soft Tissue w Contrast (Generic) (02/06/2024 5:16 AM EDT) WORKSTATION ID [id number] RAD Anatomical Region Laterality Modality Neck, Head [...] questions please contact the health health care law specialist that requested your imaging first. ? Narrative 02/06/2024 6:52 AM EDT EXAMINATION: CT [...] have questions please contactthe health health care law specialist that requested your imaging first. Guille Hansen MD IMG CT ORDERABLES * Blood culture (02/06/2024 12:45 AM EDT) Blood Culture No growth at 5 days. [facility] Blood 02/06/2024 12:4 5 AM EDT 02/06/2024 4:30 AM EDT Comment:LAC IV Narrative Resulting Agency Comment Spec In Lab Guille Hansen MD MICROBIOLOGY - BLOO D ORDERABLES Performing Organization Address City/[facility]/ZIP Co de Phone Number [facility] [place] [address] * Blood culture (02/06/2024 12:45 AM EDT) Pathologist [facility] Blood Culture No growth at 5 days. [facility] Blood 02/06/2024 12:4 5 AM EDT 02/06/2024 4:28 AM EDT Comment:RFA Narrative Resulting Agency Comment Spec In Lab Guille Hansen MD MICROBIOLOGY - BLOO D ORDERABLES Performing Organization Address [facility] Co de Phone Number [facility] [place] [address] * Lactate, whole blood, send to lab ([facility]) (02/06/2024 12:00 AM EDT) [facility] Lactate WB 1.0 0.5 - 2.2 mmol/L [facility] Blood Venous Draw / Unknown 02/06/2024 02/06/2024 12:10 AM EDT Narrative Resulting Agency Comment Spec In Lab Guille Hansen MD CHEMISTRY ORDERABLE S Performing Organization Address City/[facility]/ZIP Co de Phone Number [facility] [place] [address] * (ABNORMAL) Differential, Automated (02/06/2024 12:00 AM EDT) Neutrophil % 70.3 % [facility] Neutrophil Absolute 7.83(H) 1.70 - 6.10 x10(3)/mc L [facility] Lymph % 16.6 % [facility] Lymphocytes Abs 1.8 0.9 - 3.2 x10(3)/mc L [facility] Monocyte % 10.0 % [facility] Monocyte Abs 1.1(H) 0.3 - 0.9 x10(3)/ L [facility] Eos % 1.9 % [facility] Eosinophils Abs 0.2 0.0 - 0.4 x10(3)/[facility] Basophil % 0.7 % [facility] Baso Absolute 0.1 0.0 - 0.1 x10(3)/[facility] Immature Gran % 0.50 % [facility] Comment: Immature granulocytes(IG's)percentage and absolute count will include metamyelocytes, myelocytes, and promyelocytes. Blood smears from CBCs yielding IG's will be scanned manually for concordance. If this scan disagrees with the automated IG or if promyelocytes are noted, a manual differential will be performed. Immature Gran Absolute 0.06(H) 0.00 - 0.04 x10(3)/[facility] Blood 02/06/2024 02/06/2024 12: 10 AM EDT Narrative Resulting Agency Comment Spec In Lab Guille Hansen MD HEMATOLOGY ORDERABL ES [facility] [place] [address] * (ABNORMAL) Hemogram (02/06/2024 12:00 AM EDT) White Blood Cell 11.1(H) 4.0 - 9.5 x10(3)/[facility] Red Blood Cell 4.68 4.58 - 5.54 x10(6)/[facility] Hemoglobin 13.1(L) 13.7 - 16.5 g/dL [facility] Hematocrit 39.4(L) 40.5 - 48.5 % [facility] Mean Cell Volume 84.2 82.9 - 93.1 fL [facility] Mean Cell Hemoglobin 28.0 27.5 - 32.1 pg [facility] Mean Cell Hemoglobin Concentration 33.2 32.0 - 35.7 g/dL [facility] Platelet 361(H) 145 - 357 x10(3)/mc L [facility] RDW Standard Deviation 42.3 36.0 - 45.0 fL [facility] RDW coefficient of variation 13.7 11.4 - 13.8 % [facility] Mean Platelet Volume 9.7 7.6 - 12.9 fL [facility] NRBC% auto 0.0 % [facility] NRBC Absolute 0.000 0.000 - 0.000 x10(3)/mc L [facility] Blood 02/06/2024 02/06/2024 12: 10 AM EDT Narrative Resulting Agency Comment Spec In Lab Guille Hansen MD HEMATOLOGY ORDERABL ES Performing Organization Address City/State/[facility] Co de Phone Number [facility] [place] [address] * Basic Metabolic Panel (non-fasting) (02/06/2024 12:00 AM EDT) Glucose 108 65 - 199 mg/dL [facility] Comment:Diabetes: >=200 mg/d L plus symptoms Blood Urea Nitrogen 12 10 - 20 mg/dL [facility] Creatinine 1.08 0.80 - 1.50 mg/dL [facility] Sodium 136 135 - 145 mmol/L [facility] Potassium 3.6 3.5 - 5.0 mmol/L [facility] Comment: Please note: ??Patients with WBC >100,000 may have falsely elevated Potassium levels. ??For accurate Potassium quantification in these patients send serum separator tube (gold top) for subsequent determinations. ??Contact the Clinical Chemistry Laboratory if there are any questions. Chloride 99 98 - 107 mmol/L [facility] Carbon Dioxide 27 22 - 31 mmol/L [facility] Anion Gap 10 5 - 15 mmol/L [facility] Calcium 9.8 8.5 - 10.5 mg/dL [facility] Est Glomerular Filtration Rate 86 >=60 mL/min/1. 73 m?? [facility] Comment: This patient's estimated GFR [...] MD CHEMISTRY ORDERABLE S Performing Organization Address City/[facility] Co de Phone Number [facility] [place] [address] * Hepatic Function Panel (02/06/2024 12:00 AM EDT) Protein, Total 7.8 6.1 - 8.0 g/dL [facility] Albumin 4.0 3.2 - 5.2 g/dL [facility] Aspartate Aminotransferase 16 0 - 39 unit/L [facility] Alanine Aminotransferase 10 0 - 55 unit/L [facility] Alkaline Phosphatase 87 40 - 130 unit/L [facility] Bilirubin, Total 0.5 0.2 - 1.3 mg/dL [facility] Bilirubin, Direct 0.1 0.0 - 0.3 mg/dL [facility] Blood 02/06/2024 02/06/2024 12: 10 AM EDT Narrative Resulting Agency Comment Spec In Lab Guille Hansen MD CHEMISTRY ORDERABLE S Performing Organization Address City/[facility]/ZIP Co de Phone Number [facility] [place] [address] * Blue Tube HOLD (02/06/2024 12:00 AM EDT) Blue Hold Sample in lab. [facility] Blood 02/06/2024 02/06/2024 12: 10 AM EDT Guille Hansen MD HEMATOLOGY ORDERABL ES Performing Organization Address [facility]/ZIP Co de Phone Number [facility] [place] [address] * Gold Tube HOLD (02/06/2024 12:00 AM EDT) Gold Hold Sample in lab. [facility] Blood 02/06/2024 02/06/2024 12: 10 AM EDT Guille Hansen MD CHEMISTRY ORDERABLE S Performing Organization Address [facility] Co de Phone Number [facility] [place] [address] documented in this encounter Visit Diagnoses Diagnosis [...] over 0.5 Hours, Warning Vesicant/Irritant Medication Per bit tapper labeling, do not administer or Y-site with [...] over 0.5 Hours, Warning Vesicant/Irritant Medication Per bit tapper labeling, do not administer or Y-site with [...] Sanchez) documented in this encounter Care Teams Trial Lawyer Relationship Specialty Start Date End Date Laura Ho MD [address] [place] [address] PCP - General Family Medicine 06/28/16 documented as of this encounter
--- OUTSIDE RECORDS SUMMARY | 2024-07-06 00:49 | XMS_ITS | Encounter Summary ---
Author Organization [facility] Address [facility] [place] [address] Care Team Providers Care Inside Sales Name Role Phone Laura Ho MD Primary Care Provider [phone] Encounter Details Date Type Department Care Team (Late st Contact Info) Description 10/15/2020 3:20 PM EDT Office Visit General Surgery at [facility] [place] [id number] Jorge Luis Rios MD Postoperative visit Social History Tobacco Use Types [...] visit documented in this encounter Care Teams Inside Sales Relationship Specialty Start Date End Date Laura Ho MD [address] [place] [address] PCP - General Family Medicine 06/28/16 documented as of this encounter
--- OUTSIDE RECORDS SUMMARY | 2024-07-06 00:50 | XMS_ITS | Encounter Summary ---
Author Organization [facility] Address [facility] [place] [address] Care Team Providers Care Perinatal Social Worker Name Role Phone Laura Ho MD Primary Care Provider [phone] Reason for Visit * Reason Comments Establish Care * Consultation (Routine) - Closed Specialty Diagnoses / Procedures Referred By Contac t Referred To Contact General Surgery Diagnoses Non-intractable vomiting with nausea, unspecified vomiting type Harvey Roblero, PA [facility] [place] [address] [facility] Gen Surgery [address] [place] [address] Referral ID Status Reason Start Date Expiration Date V isits Requested Visits Authorized [id number] Closed Consult, Test & Treat 08/05/2020 08/05/2021 1 1 Encounter Details Date Type Department Care Team (Late st Contact Info) Description 09/03/2020 1:00 PM EST Office [place] [address] Jorge Luis Rios MD Biliary colic Social History Tobacco Use Types [...] recently seen at an outside ER at CAT scan notable for cholelithiasis in the setting of [...] with him today the entire time in [id number] conversation regarding pathophysiology of gallstones as well [...] obstruction documented in this encounter Care Teams Perinatal Social Worker Relationship Specialty Start Date End Date Laura Ho MD [address] [place] [address] PCP - General Family Medicine 06/28/16 documented as of this encounter
--- OUTSIDE RECORDS SUMMARY | 2024-07-06 00:50 | XMS_ITS | Encounter Summary ---
[facility] Organization [facility] [place] [address] Care Team Providers Care Gristmiller Name Role Phone Laura Ho MD Primary Care Provider [phone] Encounter Details Date Type Department Care Team (Latest Contact Info) Description 01/13/2018 7:55 AM EDT Laboratory Appointment Lab [address] [place] [phone] Localized edema; Hepatitis C virus infection without [...] (01/13/2018 8:40 AM EDT) Plat estimate Normal [facility] RBC Morphology Normal [facility] Platelet Clumps Present [facility] Blood specimen (specimen) 01/13/2018 8:40 AM EDT 01/13/2018 8:45 AM EDT Narrative Resulting Agency Comment Spec In Lab Karlene Campbell Ravinder OJEDA HEMATOLOGY ORDERA BLES [facility] [place] [address] * (ABNORMAL) Differential, Automated (01/13/2018 8:40 AM EDT) Neutrophil % 45.6 % [facility] Neutrophil Absolute 3.63 1.70 - 6.10 x10(3)/mc L [facility] Lymph % 37.1 % [facility] Lymphocytes Abs 3.0 0.9 - 3.2 x10(3)/mc L [facility] Monocyte % 8.1 % [facility] Monocyte Abs 0.6 0.3 - 0.9 x10(3)/mc L [facility] Eos % 8.0 % [facility] Eosinophils Abs 0.6(H) 0.0 - 0.4 x10(3)/mc L [facility] Basophil % 1.1 % [facility] Baso Absolute 0.1 0.0 - 0.1 x10(3)/mc L [facility] Immature Gran % 0.10 % [facility] Comment: Immature granulocytes(IG's)percentage and absolute count will include metamyelocytes, myelocytes, and promyelocytes. Blood smears from CBCs yielding IG's will be scanned manually for concordance. If this scan disagrees with the automated IG or if promyelocytes are noted, a manual differential will be performed. Immature Gran Absolute 0.01 0.00 - 0.04 x10(3)/mc L [facility] Blood specimen (specimen) 01/13/2018 8:40 AM EDT 01/13/2018 8:45 AM EDT Narrative Resulting Agency Comment Spec In Lab Karlene H Ravinder SALDAÑAN HEMATOLOGY ORDERA BLES Performing Organization Address City/[facility]/ZIP Co de Phone Number [facility] [place] [address] * Hemogram (01/13/2018 8:40 AM EDT) White Blood Cell 8.0 4.0 - 9.5 x10(3)/mc L [facility] Red Blood Cell 4.92 4.58 - 5.54 x10(6)/mc L [facility] Hemoglobin 15.1 13.7 - 16.5 gm/dL [facility] Hematocrit 45.8 40.5 - 48.5 % [facility] Mean Cell Volume 93.1 82.9 - 93.1 fL [facility] Mean Cell Hemoglobin 30.7 27.5 - 32.1 pg [facility] Mean Cell Hemoglobin Concentration 33.0 32.0 - 35.7 gm/dL [facility] Platelet Not Measured 145 - 357 x10(3)/mc L [facility] Comment: Platelet clumps present. Estimate appears Normal. If numerical platelet count is necessary send both a Sodium Citrate tube and an EDTA tube for future platelet count orders. RDW Standard Deviation 44.9 36.0 - 45.0 fL [facility] RDW coefficient of variation 13.1 11.4 - 13.8 % [facility] Mean Platelet Volume Not Measured 7.6 - 12.9 fL [facility] NRBC% auto 0.0 % [facility] NRBC Absolute 0.000 0.000 - 0.000 x10(3)/ L [facility] Blood specimen (specimen) 01/13/2018 8:40 AM EDT 01/13/2018 8:45 AM EDT Narrative Resulting Agency Comment Spec In Lab Karlene Castellon APRN HEMATOLOGY ORDERA BLES Performing Organization Address City/[facility]/ZIP Co de Phone Number [facility] [place] [address] * (ABNORMAL) Comprehensive metabolic panel (non-fasting) (01/13/2018 8:40 AM EDT) Glucose 116 65 - 199 mg/dL [facility] Comment:Diabetes: >=200 mg/d L plus symptoms Blood Urea Nitrogen 18 10 - 20 mg/dL [facility] Creatinine 1.27 0.80 - 1.50 mg/dL [facility] Sodium 138 135 - 145 mmol/L [facility] Potassium 3.8 3.5 - 5.0 mmol/L [facility] Comment: Please note: ??Patients with WBC >100,000 may have falsely elevated Potassium levels. ??For accurate Potassium quantification in these patients send serum separator tube (gold top) for subsequent determinations. ??Contact the Clinical Chemistry Laboratory if there are any questions. Chloride 100 98 - 107 mmol/L [facility] Carbon Dioxide 26 22 - 31 mmol/L [facility] Anion Gap 12 5 - 15 mmol/L [facility] Calcium 10.0 8.5 - 10.5 mg/dL [facility] Protein, Total 7.2 6.1 - 8.0 gm/dL [facility] Albumin 4.6 3.2 - 5.2 gm/dL [facility] Aspartate Aminotransferase 55(H) 0 - 39 unit/L [facility] Alanine Aminotransferase 84(H) 0 - 55 unit/L [facility] Alkaline Phosphatase 107 40 - 120 unit/L [facility] Bilirubin, Total 0.5 0.2 - 1.3 mg/dL [facility] Est Glomerular Filtration Rate 71 >=60 mL/min/1. 73 m?? [facility] Comment: The eGFR was calculated using the CKD-EPI equation. As with all creatinine based estimates of kidney function, eGFR values calculated with the CKD-EPI equation are not accurate in patients with acute kidney failure, extremes of body mass or the acutely ill. [email or web address]/DHnkdep http://ENJORE/DHnkf eGFR 82 >=60 mL/min/1. 73 m?? [facility] Comment: The eGFR was calculated using the CKD-EPI equation. As with all creatinine based estimates of kidney function, eGFR values calculated with the CKD-EPI equation are not accurate in patients with acute kidney failure, extremes of body mass or the acutely ill. [email or web address]://ENJORE/DHnkdep [email or web address]://ENJORE/DHMCnkf Blood specimen (specimen) 01/13/2018 8:40 AM EDT 01/13/2018 8:45 AM EDT Narrative Resulting Agency Comment Spec In Lab Karlene Castellon BODY AND FENDER MECHANIC APPRENTICE CHEMISTRY ORDERAB LES Performing Organization Address City/[facility]/ZIP Co de Phone Number [facility] [place] [address] * pro-Brain Natriuretic Peptide (01/13/2018 8:40 AM EDT) NT-proBNP 30 <=125 pg/mL [facility] Blood specimen (specimen) 01/13/2018 8:40 AM EDT 01/13/2018 8:45 AM EDT Narrative Resulting Agency Comment Spec In Lab Karlene Castellon BODY AND FENDER MECHANIC APPRENTICE CHEMISTRY ORDERAB LES Performing Organization Address City/[facility] Co de Phone Number [facility] [place] [address] * Hepatitis C RNA, quantitative, PCR (01/13/2018 8:40 AM EDT) HCV Viral Load 171,046 IU/mL [facility] HCV Viral Load Result: [id number] IU/mL Indication for Study: Hepatitis C Infection Analysis: The Nunez RealTime HCV assay is an in vitro reverse amusement park ride mechanic polymerase chain reaction (RT-PCR)for the quantitation of hepatitis C viral (HCV) RNA in human serum or plasma (EDTA) from HCV-infected individuals. Sample: plasma (0.7 mL minimum volume) Method: Nunez RealTime HCV Assay Linear Range: 12 IU/mL - 100,000,000IU/mL Note: The Nunez RealTime HCV Assay has been approved by the U.S. Food and Drug Administration. [facility] Comment: [VERIFIED DATE]01.17.18 Verified By:Harvey Anand (Electronic Signature) Blood specimen (specimen) 01/13/2018 8:40 AM EDT 01/16/2018 8:12 AM EDT Narrative Resulting Agency Comment Spec In Lab Karlene Castellon APRN MOLECULAR ORDERAB LES Performing Organization Address [facility] Co de Phone Number [facility] [place] [address] * Lamotrigine Lvl (01/13/2018 8:40 AM EDT) Pathologist [facility] Lamotrigine Lvl (NOVEMBER) 2.9 2.5 - 15.0 mcg/mL [facility] Comment: ADDITIONAL INFORMATION This test was developed and its performance characteristics determined by [facility] in a manner consistent with CLIA requirements. This test has not been cleared or approved by the U.S. Food and Drug Administration. Test Performed by: [facility] [address] [place] [id number] Blood specimen (specimen) 01/13/2018 8:40 AM EDT 01/13/2018 11:53 AM EDT Narrative Resulting Agency Comment Spec In Lab Karlene Castellon APRN LAB SEND OUT ORDE RABLES Performing Organization Address [facility] Co de Phone Number [facility] [place] [address] * TSH (01/13/2018 8:40 AM EDT) [facility] Thyroid Stimulating Hormone 3.44 0.27 - 4.20 mlU/ML [facility] Blood specimen (specimen) 01/13/2018 8:40 AM EDT 01/13/2018 8:45 AM EDT Narrative Resulting Agency Comment Spec In Lab Karlene Loyaell BODY AND FENDER MECHANIC APPRENTICE CHEMISTRY ORDERAB LES Performing Organization Address [facility] Co de Phone Number [facility] [place] [address] * Magnesium (01/13/2018 8:40 AM EDT) Magnesium 0.96 0.69 - 1.07 mmol/L [facility] Blood specimen (specimen) 01/13/2018 8:40 AM EDT 01/13/2018 8:45 AM EDT Narrative Resulting Agency Comment Spec In Lab Karlene Castellon BODY AND FENDER MECHANIC APPRENTICE CHEMISTRY ORDERAB LES Performing Organization Address [facility] de Phone Number [facility] [place] [address] * [place] level (01/13/2018 8:40 AM EDT) [place] 1.17 <=1.20 mmol/L [facility] Comment: Therapeutic level for [...] Agency Comment Spec In Lab Karlene Loyaell BODY AND FENDER MECHANIC APPRENTICE CHEMISTRY ORDERAB LES Performing Organization Address [facility] Co de Phone Number [facility] [place] [address] documented in this encounter Visit Diagnoses Diagnosis Localized edema Edema Hepatitis C virus infection without hepatic coma, unspecified chronicity documented in this encounter Care Teams Gristmiller Relationship Specialty Start Date End Date Vic, Laura, MD [address] [place] [address] PCP - General Family Medicine 06/28/16 documented as of this encounter
--- OUTSIDE RECORDS SUMMARY | 2024-07-06 00:50 | XMS_ITS | Encounter Summary ---
Author Organization [facility] Address [facility] [place] [place] [address] Care Team Providers Care Corner Block Cutter Name Role Phone Laura Ho MD Primary Care Provider [phone] Encounter Details Date Type Department Care Team (Late st Contact Info) Description 08/22/2019 Ancillary Procedure Radiology Library at [facility] [place] [address] Gorge Edgar MD [facility] DR [place] [address] Social History Tobacco Use Types Packs/Day Years [...] Edgar MD G FILM LIBRARY ORD ERABLES [place], [place] documented in this encounter Visit Diagnoses Not on filedocumented in this encounter Care Teams Corner Block Cutter Relationship Specialty Start Date End Date Laura Ho MD [address] [place] [address] PCP - General Family Medicine 06/28/16 documented as of this encounter
--- OUTSIDE RECORDS SUMMARY | 2024-07-06 00:50 | XMS_ITS | Encounter Summary ---
Author Organization [facility] [place] [address] Care Team Providers Care Travel Accommodation Inspector Name Role Phone Laura Ho MD Primary Care Provider Encounter Details Date Type Department Care Team (Latest Contact Info) Description 01/18/2018 7:52 AM EDT - 01/18/2018 11:59 PM EDT Hospital Encounter [place] [id number] Kyle Hester APRN [address] [place] [address] Hepatitis C virus infection without hepatic coma, [...] 09:05 am) PATIENT INFO: ID #: ? [id number] ?: ??[birth year] (37 yrs) Name: ? HARVEY RAMIREZ ?Visit Date: 01/18/2018 08:20 am PERFORMED BY: Performed By: ? Radha Knox RDMS Attending: ?Vinicius MURILLO, Jodee Flynn Referred By: ?KYLE HESTER Location: ? [place] SERVICE(S) PROVIDED: ??UABDLIM - Abdominal Limited Survey Single ? [id number] ??Organ or Quadrant - [id number] INDICATIONS: ??HEPATITIS C, LOOK AT THE LIVER [...] 01/18/2018 09:05 am) PATIENT INFO: ID #: [id number] : [birth year] (37 yrs) Name: HARVEY RAMIREZ Visit Date: 01/18/2018 08:20 am PERFORMED BY: Performed By: Radha Knox RDMS Attending: Jodee Colvin MD Referred By: KYLE HESTER Location: [place] SERVICE(S) PROVIDED: UABDLIM - Abdominal Limited Survey Single [id number] Organ or Quadrant - [id number] INDICATIONS: HEPATITIS C, LOOK AT THE LIVER [...] Final Report 01/18/2018 09:05 am Kyle Hester FAMILY ASSISTANT IMG US GEN ORDERA BLES documented in this encounter Visit Diagnoses Diagnosis Hepatitis C virus infection without hepatic coma, unspecified chronicity documented in this encounter Care Teams Travel Accommodation Inspector Relationship Specialty Start Date End Date Laura Ho MD [address] [place] [address] PCP - General Family Medicine 06/28/16 documented as of this encounter
--- OUTSIDE RECORDS SUMMARY | 2024-07-06 00:50 | XMS_ITS | Encounter Summary ---
Author Organization [facility] Address [facility] [address] [place] [address] Care Team Providers Care Surveillance Technician Name Role Phone Laura Ho MD Primary Care Provider [phone] Encounter Details Date Type Department Care Team (Late st Contact Info) Description 08/08/2019 Ancillary Procedure Radiology Library at [facility] [place] [address] Gorge Edgar MD [facility] [place] [address] Social History Tobacco Use Types Packs/Day Years [...] Edgar MD G FILM LIBRARY ORD ERABLES [place], [place] documented in this encounter Visit Diagnoses Not on filedocumented in this encounter Care Teams Surveillance Technician Relationship Specialty Start Date End Date Laura Ho MD [address] [place] [address] PCP - General Family Medicine 06/28/16 documented as of this encounter
--- OUTSIDE RECORDS SUMMARY | 2024-07-06 00:50 | XMS_ITS | Encounter Summary ---
Author Organization [facility] Address [facility] [place] [place] [address] Care Team Providers Care Guest Services Attendant Name Role Phone Laura Ho MD Primary Care Provider [phone] Encounter Details Date Type Department Care Team (Late st Contact Info) Description 08/22/2019 12:05 AM EST Ancillary Procedure Radiology Library at [facility] [place] [address] Gorge Edgar MD [facility] [place] [address] Social History Tobacco Use Types Packs/Day Years [...] Lower Extremity (08/22/2019 12:05 AM EST) Narrative [facility] - 08/30/2019 10:13 PM EST This exam is auto-finalizing. It's purpose is for storage only. Gorge Edgar MD IMG FILM LIBRARY ORD ERABLES [place], [place] documented in this encounter Visit Diagnoses Not on filedocumented in this encounter Care Teams Guest Services Attendant Relationship Specialty Start Date End Date Laura Ho MD [address] [place] [address] PCP - General Family Medicine 06/28/16 documented as of this encounter
--- OUTSIDE RECORDS SUMMARY | 2024-07-06 00:50 | XMS_ITS | Encounter Summary ---
Author Organization [facility] Address [facility] [place] [address] Care Team Providers Care Centrifugal Casting Machine Tender Name Role Phone Laura Ho MD Primary Care Provider [phone] Reason for Visit * Auth/Cert Specialty Diagnoses / Procedures Referred By Govind t Referred To Contact Diagnoses BILARY COLIC Procedures PRO LAP, CHOLECYSTECTOMY/GRAPH LAPAROSCOPIC CHOLECYSTECTOMY WITH CHOLANGIOGRAM (WRVU 11.47) Referral ID Status Reason Start Date Expiration Date Visits Re quested Visits Authorized [id number] 1 1 Encounter Details Date Type Department Care Team (Late st Contact Info) Description 09/15/2020 11:20 AM EST Anesthesia Event [place] [phone] Rajesh Millan MD [facility] [place] [address] Anesthesia Record Procedure Summary Procedure Name Responsible [...] Time: 1302 09/15/20 1134 by Tim Marquez, PHOTOGRAMMETRIST 09/15/20 1302 by Tim Marquez, PHOTOGRAMMETRIST Incision 09/15/20; 1150; abdo men; laparoscopic punctures [...] Procedure Summary Date: 09/15/20 Room / Location: [address] MAIN OR Anesthesia Start: 1120 Anesthesia Stop: 131 Procedure: LAPAROSCOPIC CHOLECYSTECTOMY WITH CHOLANGIOGRAM (WRVU 11.47) (N/A Abdomen) Diagnosis: (BILARY COLIC) Surgeons: Jorge Luis Rios MD Responsible Provider: Rajesh Millan MD Anesthesia Type: general ASA Status: 2 All Anesthesia Providers: Anesthesiologist: Rajesh Millan MD PHOTOGRAMMETRIST: Tim Marquez CRNA Vitals Value Taken Time BP 153/95 09/15/20 1315 Temp Pulse 59 09/15/20 1315 Resp 18 09/15/20 1315 SpO2 100 % 09/15/20 1315 Pain Level Patient Location: PACU/[facility] Level of Consciousness: Awake and Alert [...] y.o. male. Procedure(s): LAPAROSCOPIC CHOLECYSTECTOM[facility]OLANGIOGRAM [facility] Patient Active Problem List Diagnosis [...] to PCN (unspecified) Meds: Clonidine, Buspirone, Seroquel, Macy, Lamictal, Suboxone (took 09/15), Prazosin, Fosamax, Zofran, Acyclovir NPO: OK Plan [place] Region - Other Informed Consent: Anesthetic plan and risks discussed with patient. Plan discussed with PHOTOGRAMMETRIST. PAT Clinic Note documented in this encounter [...] 5% 50 mL infusion 900 mg, Intravenous, POTTERY DECORATOR TO O.R., 1 dose, On Tue09/15/20 at [...] mg documented in this encounter Care Teams Centrifugal Casting Machine Tender Relationship Specialty Start Date End Date Laura Ho MD [address] [place] [address] PCP - General Family Medicine 06/28/16 documented as of this encounter
--- OUTSIDE RECORDS SUMMARY | 2024-07-06 00:50 | XMS_ITS | Encounter Summary ---
Author Organization [facility] Address [facility] [place] [place] [address] Care Team Providers Care Translator Deaf Name Role Phone Laura Ho MD Primary Care Provider [phone] Encounter Details Date Type Department Care Team (Late st Contact Info) Description 09/05/2019 Orders [place] [address] Gorge Edgar MD [facility] [place] [address] Abnormal findings on diagnostic imaging of limbs [...] the Left knee was performed. FINDINGS: The [id number] includes only 8 cm length of distal [...] the Left knee was performed. FINDINGS: The [id number] includes only 8 cm length of distal [...] structure documented in this encounter Care Teams Translator Deaf Relationship Specialty Start Date End Date Laura Ho MD [address] [place] [address] PCP - General Family Medicine 06/28/16 documented as of this encounter
--- OUTSIDE RECORDS SUMMARY | 2024-07-06 00:50 | XMS_ITS | Encounter Summary ---
Author Organization [facility] Address [facility] [place] [address] Care Team Providers Care Hyperbaric Welder Diver Name Role Phone Laura Ho MD Primary Care Provider [phone] Encounter Details Date Type Department Care Team (Latest Contact Info) Description 12/08/2018 Transcribe [place] [address] Laura Ho MD [address] [place] [address] Screening for lipoid disorders; Encounter [...] EDT) Glucose 80 65 - 199 mg/dL [facility] Comment:Diabetes: >=200 mg/d L plus symptoms Blood Urea Nitrogen 9(L) 10 - 20 mg/dL [facility] Creatinine 1.11 0.80 - 1.50 mg/dL [facility] Sodium 137 135 - 145 mmol/L [facility] Potassium 4.1 3.5 - 5.0 mmol/L [facility] Comment: Please note: ??Patients with WBC >100,000 may have falsely elevated Potassium levels. ??For accurate Potassium quantification in these patients send serum separator tube (gold top) for subsequent determinations. ??Contact the Clinical Chemistry Laboratory if there are any questions. Chloride 99 98 - 107 mmol/L [facility] Carbon Dioxide 26 22 - 31 mmol/L [facility] Anion Gap 12 5 - 15 mmol/L [facility] Calcium 10.3 8.5 - 10.5 mg/dL [facility] Protein, Total 8.2(H) 6.1 - 8.0 gm/dL [facility] Albumin 4.8 3.2 - 5.2 gm/dL [facility] Aspartate Aminotransferase 60(H) 0 - 39 unit/L [facility] Alanine Aminotransferase 83(H) 0 - 55 unit/L [facility] Alkaline Phosphatase 93 40 - 120 unit/L [facility] Bilirubin, Total 0.5 0.2 - 1.3 mg/dL [facility] Est Glomerular Filtration Rate 83 >=60 mL/min/1. 73 m?? [facility] Comment: The eGFR was calculated using the CKD-EPI equation. As with all creatinine based estimates of kidney function, eGFR values calculated with the CKD-EPI equation are not accurate in patients with acute kidney failure, extremes of body mass or the acutely ill. http://GetYourGuide/[facility] [place] eGFR 96 >=60 mL/min/1. 73 m?? [facility] Comment: The eGFR was calculated using the CKD-EPI equation. As with all creatinine based estimates of kidney function, eGFR values calculated with the CKD-EPI equation are not accurate in patients with acute kidney failure, extremes of body mass or the acutely ill. http://GetYourGuide/[facility] [place] Blood specimen (specimen) 12/11/2018 10:30 AM EDT 12/11/2018 10:36 AM EDT Narrative Resulting Agency Comment Spec In Lab Laura Ho MD CHEMISTRY ORDERABLES Performing Organization Address [facility] Co de Phone Number [facility] [place] [address] * Novi level (12/11/2018 10:30 AM EDT) Novi 0.85 <=1.20 mmol/L [facility] Comment: Therapeutic level for [...] Ho MD CHEMISTRY ORDERABLES Performing Organization Address [facility] Co de Phone Number [facility] [place] [address] * Hepatitis C RNA, quantitative, PCR (12/11/2018 10:30 AM EDT) HCV Viral Load 906,454 IU/mL [facility] HCV Viral Load Result: [id number] IU/mL Indication for Study: Hepatitis C Infection Analysis: The Nunez RealTime HCV assay is an in vitro reverse rasper machine operator polymerase chain reaction (RT-PCR)for the quantitation of hepatitis C viral (HCV) RNA in human serum or plasma (EDTA) from HCV-infected individuals. Sample: plasma (0.7 mL minimum volume) Method: Nunez RealTime HCV Assay Linear Range: 12 IU/mL - 100,000,000IU/mL Note: The Nunez RealTime HCV Assay has been approved by the U.S. Food and Drug Administration. [facility] Comment: [VERIFIED DATE]12.19.18 Verified By:Sherice Paniagua (Electronic Signature) Blood specimen (specimen) 12/11/2018 10:30 AM EDT 12/18/2018 2:58 PM EDT Narrative Resulting Agency Comment Spec In Lab Laura Ho MD MOLECULAR ORDERABLES Performing Organization Address City/State/[facility] Co de Phone Number [facility] [place] [address] * Lipid Panel (12/11/2018 10:30 AM EDT) Cholesterol, Total 143 mg/dL [facility] Comment: Lower Risk: <200 mg/dL Average Risk: 200-239 mg/dL Higher Risk: >jo=004 mg/dL Triglyceride 127 mg/dL [facility] Comment: Average Risk/Lower Risk: <150 mg/dL Borderline High Risk: 150-199 mg/dL High Risk: 200-499 mg/dL Very High Risk: >xf=474 mg/dL HDL Cholesterol 59 mg/dL [facility] Comment: Males: ?? Higher Risk: <40 mg/dL Females: ?? HIgher Risk: <50 mg/dL LDL Cholesterol 59 mg/dL [facility] Comment: Lowest Risk: <100 mg/dL Lower Risk: 100-129 mg/dL Borderline High Risk: 130-159 mg/dL High Risk: 160-189 mg/dL Very High Risk: >ua=473 mg/dL Cholesterol/HDL Ratio 2.4 ratio [facility] Lipid Interpretation See Note [facility] Comment: Lipid management should be guided by a patient? s ASCVD risk, goals and preferences. ACC/AHA Guidelines recommend high intensity statin if clinical ASCVD or LDL greater than or equal to 190 mg/dL. http://Elevation Laburl.com/PQD-JNS-Phseiuiqu Adults aged 40-75 with LDL 70-189 mg/dL should have their 10 year ASCVD risk estimated with the ACC/AHA ASCVD risk commercial construction estimator http://tools.acc.org/NIDPE-Fkbl-Zyudggzrn/ Statin should be discussed if risk greater [...] In Lab Laura Ho MD CHEMISTRY ORDERABLES [facility] [place] [address] documented in this encounter Visit Diagnoses Diagnosis Screening for lipoid disorders Encounter for long-term (current) use of other medications documented in this encounter Care Teams Hyperbaric Welder Diver Relationship Specialty Start Date End Date Laura Ho MD [address] [place] [address] PCP - General Family Medicine 06/28/16 documented as of this encounter
--- OUTSIDE RECORDS SUMMARY | 2024-07-06 00:50 | XMS_ITS | Encounter Summary ---
Author Organization [facility] Address [facility] [place] [place] [address] Care Team Providers Care Time Study Observer Name Role Phone Laura Ho MD Primary Care Provider [phone] Reason for Visit * Reason Comments Skin Lesion Encounter Details Date Type Department Care Team (Late st Contact Info) Description 05/19/2020 11:00 AM EST Office Visit Dermatology at [facility] [address] [place] [address] Leoncio Byers MD [facility] [address] [place] [address] Hand eczema; Prurigo nodularis; Pedal edema Social [...] by Leoncio Byers MD Resident in Dermatology [facility] Staff quartz miner: Wesley Mueller MD Department of Dermatology [facility] * Wesley Mueller MD - 05/19/2020 11:00 AM EST I was the supervising physician working with Dermatology resident, Dr. Byers, in the Dermatology Clinic during this patient visit. The level of resident supervision for this patient visit was indirect supervision with direct supervision immediately available (definition: [facility] Policy Statement on Graduate Medical Education, Supervision of Graduate Medical Trainees). I was immediately available to Dr. Zeeshan for questions and discussion regarding this visit. I have reviewed the encounter note details and level of service. WES[facility]UELLER 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
--- OUTSIDE RECORDS SUMMARY | 2024-07-06 00:50 | XMS_ITS | Encounter Summary ---
Author Organization [place] [address] Care Team Providers Care Non Licensed Nuclear Plant Operator Name Role Phone Laura Ho MD Primary Care Provider [phone] Encounter Details Date Type Department Care Team (Late st Contact Info) Description 11/24/2018 Transcribe [place] [address] Laura Ho MD [address] [place], [place] [address] Social History Tobacco Use Types Packs/Day Years [...] on filedocumented in this encounter Care Teams Non Licensed Nuclear Plant Operator Relationship Specialty Start Date End Date Laura Ho MD [address] [place], [place] [address] PCP - General Family Medicine 06/28/16 documented as of this encounter
--- OUTSIDE RECORDS SUMMARY | 2024-07-06 00:50 | XMS_ITS | Encounter Summary ---
Author Organization [facility] Address [facility] [address] [place] [address] Care Team Providers Care Outside Maintenance Worker Name Role Phone Laura Ho MD Primary Care Provider [phone] Encounter Details Date Type Department Care Team (Late st Contact Info) Description 08/15/2019 Ancillary Procedure Radiology Library [place] [facility] [place] [address] Gorge Edgar MD [facility] [place] [address] Social History Tobacco Use Types Packs/Day Years [...] Edgar MD G FILM LIBRARY ORD ERABLES [facility] [place] documented in this encounter Visit Diagnoses Not on filedocumented in this encounter Care Teams Outside Maintenance Worker Relationship Specialty Start Date End Date Laura Ho MD [address] [place] [address] PCP - General Family Medicine 06/28/16 documented as of this encounter
--- OUTSIDE RECORDS SUMMARY | 2024-07-06 00:50 | XMS_ITS | Encounter Summary ---
[place] [address] Care Team Providers Care Plastics Engineer Name Role Phone Laura Ho MD Primary Care Provider [phone] Reason for Visit * Auth/Cert Specialty Diagnoses / Procedures Referred By Govind townsend Referred To Contact Diagnoses BILARY COLIC Procedures PRO LAP, CHOLECYSTECTOMY/GRAPH LAPAROSCOPIC CHOLECYSTECTOMY WITH CHOLANGIOGRAM (WRVU 11.47) Referral ID Status Reason Start Date Expiration Date Visits Re quested Visits Authorized [id number] 1 1 Encounter Details Date Type Department Care Team (Latest Contact Info) Description 09/15/2020 9:10 AM EST - 09/15/2020 5:19 PM EST Hospital Encounter [place] [id number] Jorge Luis Arizmendi MD Discharge Disposition: Home Social History Tobacco Use [...] 6-8 hours after your surgery, please call [phone] before 5 PM weekdays and [phone] after 5 PM and weekends to discuss [...] 101.3 F. The number for questions is [phone] before 5 PM weekdays and [phone] after 5 PM and weekends. Follow-up: Follow-up appointment will be scheduled with Dr. Arizmendi in 4 weeks. Appointment will be mailed to you. Please call [phone] (clinic number for appointments) to confirm date [...] Johnson MD - 09/15/2020 10:49 AM EST [facility] Minimally Invasive Surgery Interval History and Physical [...] recently seen at an outside ER at [facility] scan notable for cholelithiasis in the setting [...] with him today the entire time in hfyq-ql-yufd conversation regarding pathophysiology of gallstones as well [...] Arizmendi MD - 09/15/2020 11:50 AM EST [facility] Operative Note Patient Name: Harvey Espinosa : [id number] MR#: [id number] Case Date: 09/15/2020 Surgeon: Surgeon(s) and Role: [...] 09/15/2020 12:39 PM EST Lap, Cholecystectomy/Gra ph (77698) 09/15/2020 11:24 AM EST BILARY COLIC documented in this encounter Results * Surgical Pathology Report (09/15/2020 12:41 PM EST) Final Diagnosis [id number] ? Location: [facility]; [facility]; The signing pathologist has (i) examined the relevant preparation(s) for the specimen(s) and (ii) rendered or confirmed the diagnosis(es). . ?Surgical Pathology DIAGNOSIS Gallbladder: - ??Cholelithiasis. Electronically signed by: ??Robert Bazzi MD Verified: ??09/18/2020 ?Pathologist Performed at: ??-[facility] Dept. of Pathology, [place], [place] SPECIMEN(S) SUBMITTED A - gallbladder, excision (1) CLINICAL INFORMATION Biliary colic SPECIMEN PROCESSING A - Labeled/Fixative: Gallbladder, fresh. Quantity/Size: ??Single, 8.5 x 3.2 x 2.7 cm. Specimen Description: Gallbladder, received intact. Serosa: [place]-red, congested. Adventitia: Unremarkable. Lumen contents: Yellow, viscous, bile. Gallstones: Present: Single, yellow gallstone, 0.9 cm. Mucosa: [place]-yellow and velvety. Wall: 0.2 cm thick. Duct: 0.3 cm, patent. Ink Designation: The hepatic margin is inked black Sections/Processi ng: Aircraft General Repair Mechanic sections in 1 cassettes as follows: ?A1: ??cystic duct margin and software sales representative mucosa. ??sns 09/18/2020 4:07 PM EST [facility] GALLBLADDER STRUCTURE / Unknown 09/15/2020 12:41 PM EST 09/15/2020 12:41 PM EST Jorge Luis Arizmendi MD PATHOLOGY/CYTOLOGY ORDERABLES Performing Organization Address [facility] [place] [address] * Specimen to Pathology (09/15/2020 12:41 PM EST) AP Specimen 09/15/2020 12:4 1 PM EST 09/15/2020 12:41 PM EST Narrative [facility] - 09/15/2020 12:41 PM EST Specimen requisition ordered. ??Separate Pathology report to follow Jorge Luis Arizmendi MD PATHOLOGY/CYTOLOGY ORDERABLES Performing Organization Address [facility] [place] [address] * XR Fluoro No Rad <1Hr - OR Use (09/15/2020 12:39 PM EST) Narrative RAD - 09/15/2020 12:41 PM EST This exam is auto-finalizing. No interpretation was done. Jorge Luis Arizmendi MD IMG FLUORO ORDERABL ES Performing Organization Address [facility] Co de Phone Number [place], [place] documented in this encounter Visit Diagnoses [...] 50 mL infusion (COMPLETED) 900 mg, Intravenous, TEST MAN TO O.R., 1 dose, On Tue09/15/20 at [...] 1100 (New Bag - Prov ider: Tim Marquze CRNA)1303 (Stopped - Provider: Tim Marquez CRNA) [...] RN) documented in this encounter Care Teams Plastics Engineer Relationship Specialty Start Date End Date Laura Ho MD [address] [place] [address] PCP - General Family Medicine 06/28/16 documented as of this encounter
--- OUTSIDE RECORDS SUMMARY | 2024-07-06 00:50 | XMS_ITS | Encounter Summary ---
Author Organization Replaced By [facility] Address [facility] [address] [address] Care Team Providers Care Die Equipment Operator Name Role Phone Laura Ho MD Primary Care Provider [phone] Reason for Visit * Reason Comments Cellulitis right leg back of kn ee, IV drug use Encounter Details Date Type Department Care Team (Late st Contact Info) Description 01/17/2017 4:02 PM EDT - 01/17/2017 6:28 PM [place]T [place] [address] Warren Callahan MD [facility] [place] [address] Cellulitis of leg, right; Abscess of right [...] from the original note were not included. [facility] Skin Abscess: Care Instructions Your Care Instructions [...] your doctor if you can take an mghg-ftm-eywyqte medicine. ?? Keep your bandage clean and [...] Where can you learn more? Visit our [employer] information library at [email or web address] You can also view health information on [employer], your personal patient account. Log in or sign up today. Enter D633 in the search box to learn more about Skin Abscess: Care Instructions. ?? [id number] [employer]. Care instructions adapted under license by [facility]. This care instruction is for use with your licensed healthcare professional. If you have questions about a medical condition or this instruction, always ask your healthcare professional. [employer] disclaims any warranty or liability for your use of this information. Content Version: 11.0.615354; Current as of: August 15, 2015 [facility] Cellulitis: Care Instructions Your Care Instructions Cellulitis [...] your doctor if you can take an hpvq-xkf-eehjhmv medicine. To prevent cellulitis in the future [...] more? Visit our health information library at [email or web address] You can also view health information on [employer], your personal patient account. Log in or sign up today. Enter X309 in the search box to learn more about Cellulitis: Care Instructions. ?? 8742-3247 [employer]. Care instructions adapted under license by [facility]. This care instruction is for use with your licensed healthcare professional. If you have questions about a medical condition or this instruction, always ask your healthcare professional. [employer], [employer] disclaims any warranty or liability for your use of this information. Content Version: 11.0.712211; Current as of: August 15, 2015 documented [...] Staphylococcus aureus Moderate normal cutaneous alexis (A) [facility] Gram Stain Many White Blood Cells seen Rare Gram Positive Cocci seen (A) [facility] Organism Staphylococcus aureus(A) [facility] Organism Gram Positive Cocci(A) [facility] Swab (specimen) STRUCTURE OF RIGHT LOWER [...] Sensitive Comment:Gentamicin i s not appropriate for Benzie-therapy. Staphylococcus aureus Levofloxacin MICROSCAN METHOD Sensitive Staphylococcus [...] Callahan MD MICROBIOLOGY - GEN ERAL ORDERABLES [place] [id number] documented in this encounter Visit Diagnoses Diagnosis Cellulitis of leg, right Cellulitis and abscess of leg, except foot Abscess of right leg Cellulitis and abscess of leg, except foot documented in this encounter Care Teams Die Equipment Operator Relationship Specialty Start Date End Date Laura Ho MD [address] [place] [address] PCP - General Family Medicine 06/28/16 documented as of this encounter
--- OUTSIDE RECORDS SUMMARY | 2024-07-06 00:50 | XMS_ITS | Encounter Summary ---
Author Organization [facility] Address [facility] [place] [place] [address] Care Team Providers Care Rn Patient Services Name Role Phone Laura Ho MD Primary Care Provider [phone] Reason for Visit * Reason Comments Knee Pain left knee bone lesio n * Consultation (Routine) - Closed Specialty Diagnoses / Procedures Referred By Contac t Referred To Contact Orthopaedics Diagnoses LEFT KNEE PAIN Mark Perea MD [address] [place] [address] Digna Das MD [facility] [place] [address] Referral ID Status Reason Start Date Expiration Date V isits Requested Visits Authorized [id number] Closed Consult, Test & Treat Connection [facility] PCP Updated and/or Approved 08/23/2019 08/22/2020 1 1 Encounter Details Date Type Department Care Team (Late st Contact Info) Description 09/25/2019 3:10 PM EDT Office [place] [address] Digna Das MD [facility] [place] [address] Paget's bone disease Social History Tobacco Use [...] ?? [facility] [place] [address] FAX: Sarcoma Program Newsletter This is a consultation for patient aHrvey Espinosa at the request of Dr. Perea. [...] of the information conveyed. At today???s visit, aHrvey Espinosa was accompanied by his spouse. I [...] 1 of our musculoskeletal radiologist here at [facility] and they confirmed the appearance of Paget's. [...] copy this note to: Mark Perea MD [address] [place] [address] Laura Ho MD [address] [place] [address] documented in this encounter Miscellaneous Notes * [...] tumor documented in this encounter Care Teams Rn Patient Services Relationship Specialty Start Date End Date Laura Ho MD [address] [place] [address] PCP - General Family Medicine 06/28/16 documented as of this encounter
--- OUTSIDE RECORDS SUMMARY | 2024-07-06 00:50 | XMS_ITS | Encounter Summary ---
Author Organization [facility] Address [facility] [place] [address] Care Team Providers Care Bookkeeping Service Sales Agent Name Role Phone Laura Ho MD Primary Care Provider [phone] Encounter Details Date Type Department Care Team (Latest Contact Info) Description 09/03/2020 10:49 AM EST - 09/03/2020 11:59 PM EST Hospital [place] [id number] Jorge Luis Rios MD Nausea and vomiting, intractability of vomiting not [...] 12:05 pm) PATIENT INFO: ID #: ? [id number] ?: ??[birth year] (40 yrs)(M) Name: ? HARVEY RAMIREZ ?Visit Date: 09/03/2020 11:33 am PERFORMED BY: Performed By: ? Tahira Soliz RDMS Attending: ?Penny MURILLO, Lorenzo Morales Resident: ? Jesus Cowan MD Referred By: ?JORGE LUIS RIOS Location: ? [place] SERVICE(S) PROVIDED: UABDLIM - Abdominal Limited Survey Single ? [id number] Organ or Quadrant - [id number] INDICATIONS: assess gallbladder COMPARISON: Prior US: 01/18/18 [...] 09/03/2020 12:05 pm) PATIENT INFO: ID #: [id number] : [birth year] (40 yrs)(M) Name: HARVEY RAMIREZ Visit Date: 09/03/2020 11:33 am PERFORMED BY: Performed By: Tahira Soliz RDMS Attending: Lorenzo Francis MD Resident: Jesus Cowan MD Referred By: JORGE LUIS RIOS Location: [place] SERVICE(S) PROVIDED: UABDLIM - Abdominal Limited Survey Single 58260 Organ or Quadrant - [id number] INDICATIONS: assess gallbladder COMPARISON: Prior US: 01/18/18 [...] below. Electronically signed by: Lorenzo Francis MD, [facility] ([phone]), at 09/03/2020 11:57 AM Lorenzo Francis, Staff Physician Electronically Signed Final Report 09/03/2020 12:05 pm Jorge Luis Rios MD IMG US GEN ORDERABL ES documented in this encounter Visit Diagnoses Diagnosis Nausea and vomiting, intractability of vomiting not specified, unspecified vomiting type Upper abdominal pain Abdominal pain, other specified site documented in this encounter Care Teams Bookkeeping Service Sales Agent Relationship Specialty Start Date End Date Laura Ho MD [address] [place] [address] PCP - General Family Medicine 06/28/16 documented as of this encounter
--- OUTSIDE RECORDS SUMMARY | 2024-07-06 00:50 | XMS_ITS | Encounter Summary ---
[place] [address] Care Team Providers Care High School English Teacher Name Role Phone Laura Ho MD Primary Care Provider [phone] Encounter Details Date Type Department Care Team (Latest Contact Info) Description 08/26/2016 2:15 PM EST Laboratory Appointment Lab [address] [place] [phone] Bipolar I disorder, most recent episode (or [...] Stimulating Hormone 3.35 0.27 - 4.20 mcIU/mL [facility] Blood specimen (specimen) 08/26/2016 2:53 PM EST 08/26/2016 2:57 PM EST Narrative Resulting Agency Comment Spec In Lab Laura Pickering MD CHEMISTRY ORDERABLES Performing Organization Address [facility] de Phone Number [facility] [place] [address] * [place] level (08/26/2016 2:53 PM EST) [place] 1.04 mmol/L [facility] Comment: [...] Pickering MD CHEMISTRY ORDERABLES Performing Organization Address [facility] Co de Phone Number [facility] [place] [address] * Creatinine (08/26/2016 2:53 PM EST) Creatinine 1.17 0.80 - 1.50 mg/dL [facility] Comment: Please note that the pediatric reference intervals supplied above were not validated at [facility] [place]. Results from pediatric patients should be [...] the following links into your internet browser. [email or web address] Blood specimen (specimen) 08/26/2016 2:53 PM EST 08/26/2016 2:57 PM EST Narrative Resulting Agency Comment Spec In Lab Laura Pickering MD CHEMISTRY ORDERABLES Performing Organization Address [facility] Co de Phone Number [facility] [place] [address] * Calcium (08/26/2016 2:53 PM EST) Calcium 9.9 8.5 - 10.5 mg/dL [facility] Blood specimen (specimen) 08/26/2016 2:53 PM EST 08/26/2016 2:57 PM EST Narrative Resulting Agency Comment Spec In Lab Laura Pickering MD CHEMISTRY ORDERABLES Performing Organization Address [facility] Co de Phone Number [facility] [place] [address] documented in this encounter Visit Diagnoses Diagnosis Bipolar I disorder, most recent episode (or current) depressed, severe, specified as with psychotic behavior documented in this encounter Care Teams High School English Teacher Relationship Specialty Start Date End Date Laura Ho MD [address] [place] [address] PCP - General Family Medicine 06/28/16 documented as of this encounter
--- OUTSIDE RECORDS SUMMARY | 2024-07-06 00:50 | XMS_ITS | Encounter Summary ---
[place] [address] Care Team Providers Care Product Marketing Specialist Name Role Phone Laura Ho MD Primary Care Provider [phone] Reason for Visit * Auth/Cert Specialty Diagnoses / Procedures Referred By Govind townsend Referred To Contact Diagnoses BILARY COLIC Procedures PRO LAP, CHOLECYSTECTOMY/GRAPH LAPAROSCOPIC CHOLECYSTECTOMY WITH CHOLANGIOGRAM (WRVU 11.47) Referral ID Status Reason Start Date Expiration Date Visits Re quested Visits Authorized [id number] 1 1 Encounter Details Date Type Department Care Team (Late st Contact Info) Description 09/15/2020 10:40 AM EST - 09/15/2020 1:17 PM EST Surgery [place] [address] Jorge Luis Arizmendi MD LAPAROSCOPIC CHOLECYSTECTOMY WITH CHOLANGIOGRAM (WRVU 11.47) Social [...] 6-8 hours after your surgery, please call [phone] before 5 PM weekdays and [phone] after 5 PM and weekends to discuss [...] 101.3 F. The number for questions is [phone] before 5 PM weekdays and [phone] after 5 PM and weekends. Follow-up: Follow-up appointment will be scheduled with Dr. Arizmendi in 4 weeks. Appointment will be mailed to you. Please call [phone] (clinic number for appointments) to confirm date [...] of this encounter Progress Notes * Lissy Foley RN - 09/15/2020 1:57 PM EST Pt [...] Johnson MD - 09/15/2020 10:49 AM EST [facility] Minimally Invasive Surgery Interval History and Physical [...] recently seen at an outside ER at [facility] scan notable for cholelithiasis in the setting [...] with him today the entire time in cisn-[id number] conversation regarding pathophysiology of gallstones as well [...] Arizmendi MD - 09/15/2020 11:50 AM EST [facility] Operative Note Patient Name: Harvey Espinosa : [id number] MR#: [id number] Case Date: 09/15/2020 Surgeon: Surgeon(s) and Role: [...] without the involvement of a resident. JORGE ULIS ARIZMENDI MD 09/15/2020 documented in this encounter Plan of Treatment Not on file documented as of this encounter Procedures Procedure Name Priority Date/Time Associated Diagnosis Comments SURGICAL PATHOLOGY REPORT Routine 09/15/2020 12:41 PM EST SPECIMEN TO PATHOLOGY Routine 09/15/2020 12:41 PM EST XR FLUORO NO RAD <1HR - OR USE Routine 09/15/2020 12:39 PM EST Lap, Cholecystectomy/Gra ph (47340) 09/15/2020 11:24 AM EST BILARY COLIC documented in this encounter Results * Surgical Pathology Report (09/15/2020 12:41 PM EST) Final Diagnosis [id number] ? Location: [facility]; [facility]; The signing pathologist has (i) examined the relevant preparation(s) for the specimen(s) and (ii) rendered or confirmed the diagnosis(es). . ?Surgical Pathology DIAGNOSIS Gallbladder: - ??Cholelithiasis. Electronically signed by: ??Robert Bazzi MD Verified: ??09/18/2020 ?Pathologist Performed at: ??-[facility] Dept. of Pathology, [place], [place] SPECIMEN(S) SUBMITTED A - gallbladder, excision (1) CLINICAL INFORMATION Biliary colic SPECIMEN PROCESSING A - Labeled/Fixative: Gallbladder, fresh. Quantity/Size: ??Single, 8.5 x 3.2 x 2.7 cm. Specimen Description: Gallbladder, received intact. Serosa: [place]-red, congested. [place]ia: Unremarkable. Lumen contents: Yellow, viscous, bile. Gallstones: Present: Single, yellow gallstone, 0.9 cm. Mucosa: [place]-yellow and velvety. Wall: 0.2 cm thick. Duct: 0.3 cm, patent. Ink Designation: The hepatic margin is inked black Sections/Processi ng: Tag And Label Cutter sections in 1 cassettes as follows: ?A1: ??cystic duct margin and retail wireless sales representative mucosa. ??sns 09/18/2020 4:07 PM EST [facility] GALLBLADDER STRUCTURE / Unknown 09/15/2020 12:41 PM EST 09/15/2020 12:41 PM EST Jorge Luis Arizmendi MD PATHOLOGY/CYTOLOGY ORDERABLES Performing Organization Address [facility] [place] [address] * Specimen to Pathology (09/15/2020 12:41 PM EST) AP Specimen 09/15/2020 12:4 1 PM EST 09/15/2020 12:41 PM EST Narrative [facility] - 09/15/2020 12:41 PM EST Specimen requisition ordered. ??Separate Pathology report to follow Jorge Luis Arizmendi MD PATHOLOGY/CYTOLOGY ORDERABLES Performing Organization Address [facility] [place] [address] * XR Fluoro No Rad <1Hr - OR Use (09/15/2020 12:39 PM EST) Narrative RAD - 09/15/2020 12:41 PM EST This exam is auto-finalizing. No interpretation was done. Jorge Luis Arizmendi MD IMG FLUORO ORDERABL ES Performing Organization Address [facility] Co de Phone Number [place], [place] documented in this encounter Visit Diagnoses [...] 50 mL infusion (COMPLETED) 900 mg, Intravenous, MANAGER RESPIRATORY CARE TO O.R., 1 dose, On Tue09/15/20 at [...] RN) documented in this encounter Care Teams Product Marketing Specialist Relationship Specialty Start Date End Date Laura Ho MD [address] [place] [address] PCP - General Family Medicine 06/28/16 documented as of this encounter
--- OUTSIDE RECORDS SUMMARY | 2024-07-06 00:50 | XMS_ITS | Encounter Summary ---
Author Organization [facility] [place] [address] Care Team Providers Care Global Project Manager Name Role Phone Laura Ho MD Primary Care Provider [phone] Encounter Details Date Type Department Care Team (Latest Contact Info) Description 06/28/2016 2:55 PM EST Laboratory Appointment Lab [address] [place] [phone] Bipolar I disorder, most recent episode (or [...] Stimulating Hormone 2.57 0.27 - 4.20 mcIU/mL [facility] Blood specimen (specimen) 06/28/2016 3:29 PM EST 06/28/2016 3:41 PM EST Narrative Resulting Agency Comment Spec In Lab Laura Pickering MD CHEMISTRY ORDERABLES Performing Organization Address [facility] de Phone Number [facility] [place] [address] * [place] level (06/28/2016 3:29 PM EST) [place] 0.84 mmol/L [facility] Comment: Therapeutic level for bipolar [...] Pickering MD CHEMISTRY ORDERABLES Performing Organization Address [facility] Co de Phone Number [facility] [place] [address] * Creatinine (06/28/2016 3:29 PM EST) Creatinine 1.25 0.80 - 1.50 mg/dL [facility] Comment: Please note that the pediatric reference intervals supplied above were not validated at [facility]. Results from pediatric patients should be interpreted in conjunction to the patient's age, height and muscle mass. Est Glomerular Filtration Rate >60 >=60 [facility] Comment: This estimated GFR (eGFR) value [...] the following links into your internet browser. [email or web address] [email or web address]/[email or web address] [email or web address] [email or web address] Blood specimen (specimen) 06/28/2016 3:29 PM EST 06/28/2016 3:41 PM EST Narrative Resulting Agency Comment Spec In Lab Laura Pickering MD CHEMISTRY ORDERABLES Performing Organization Address [facility] Co de Phone Number [facility] [place] [address] * Calcium (06/28/2016 3:29 PM EST) Calcium 10.5 8.5 - 10.5 mg/dL [facility] Blood specimen (specimen) 06/28/2016 3:29 PM EST 06/28/2016 3:41 PM EST Narrative Resulting Agency Comment Spec In Lab Laura Pickering MD CHEMISTRY ORDERABLES Performing Organization Address [facility] Co de Phone Number [facility] [place] [address] documented in this encounter Visit Diagnoses Diagnosis Bipolar I disorder, most recent episode (or current) depressed, severe, specified as with psychotic behavior documented in this encounter Care Teams Global Project Manager Relationship Specialty Start Date End Date Laura Ho MD [address] [place] [address] PCP - General Family Medicine 06/28/16 documented as of this encounter
--- OUTSIDE RECORDS SUMMARY | 2024-07-06 00:50 | XMS_ITS | Encounter Summary ---
Author Organization [facility] Address [facility] [place] [address] Care Team Providers Care Workers Compensation Claims Assistant Name Role Phone Laura Ho MD Primary Care Provider Encounter Details Date Type Department Care Team (Latest Contact Info) Description 06/14/2018 [place] [address] Laura Ho MD [address] [place] [address] Encounter for therapeutic drug monitoring [...] Type Priority Associated Diagnoses Orde r Schedule Dyer level Lab Routine Encounter for therapeutic drug [...] monitoring documented in this encounter Care Teams Workers Compensation Claims Assistant Relationship Specialty Start Date End Date Laura Ho MD [address] [place] [address] PCP - General Family Medicine 06/28/16 documented as of this encounter
--- OUTSIDE RECORDS SUMMARY | 2024-07-06 00:50 | XMS_ITS | Encounter Summary ---
Author Organization [facility] Address [facility] [place] [address] Care Team Providers Care Night Filler Name Role Phone Laura Ho MD Primary Care Provider [phone] Encounter Details Date Type Department Care Team (Late st Contact Info) Description 08/11/2017 3:10 PM EST Laboratory Appointment Lab [address] [place] [phone] Social History Tobacco Use Types Packs/Day Years [...] 4:18 PM EST HIV SCREEN, 4TH GENERATION ([facility]/[facility]H) Routine 08/11/2017 4:18 PM EST HEPATIC FUNCTION PANEL Routine 08/11/2017 4:18 PM EST documented in this encounter Results * Hepatitis A Antibody, Total (08/11/2017 4:18 PM EST) Hepatitis A ANTIBODY, TOTAL Negative Negative [facility] Blood specimen (specimen) Venous Draw / Unknown 08/11/2017 4:18 PM EST 08/11/2017 4:21 PM EST Narrative Resulting Agency Comment Spec In Lab Fitz Quach MD CHEMISTRY ORDERABLES Performing Organization Address City/[facility] Co de Phone Number [facility] [place] [address] * (ABNORMAL) Hepatic Function Panel (08/11/2017 4:18 PM EST) [facility] Protein, Total 8.0 6.1 - 8.0 gm/dL [facility] Albumin 4.9 3.2 - 5.2 gm/dL [facility] Aspartate Aminotransferase Not Perf 0 - 39 unit/L [facility] Comment:Unable to quantitate due to sample hemolysis. Sample redraw suggested. Alanine Aminotransferase 102(H) 0 - 55 unit/L [facility] Alkaline Phosphatase 90 40 - 120 unit/L [facility] Bilirubin, Total 0.2 0.2 - 1.3 mg/dL [facility] Bilirubin, Direct 0.1 0.0 - 0.3 mg/dL [facility] Blood specimen (specimen) Venous Draw / Unknown 08/11/2017 4:18 PM EST 08/11/2017 4:21 PM EST Narrative Resulting Agency Comment Spec In Lab Fitz Quach MD CHEMISTRY ORDERABLES Performing Organization Address City/[facility]/ZIP Co de Phone Number [facility] [place] [address] * Hepatitis B Core Antibody, Total (08/11/2017 4:18 PM EST) [facility] Hepatitis B Core Antibody Negative Negative [facility] Blood specimen (specimen) Venous Draw / Unknown 08/11/2017 4:18 PM EST 08/11/2017 6:00 PM EST Narrative Resulting Agency Comment Spec In Lab Fitz Quach MD CHEMISTRY ORDERABLES Performing Organization Address City/[facility]/ZIP Co de Phone Number [facility] [place] [address] * (ABNORMAL) Hepatitis C Antibody (08/11/2017 4:18 PM EST) Hepatitis C Antibody Positive(A ) Negative [facility] Blood specimen (specimen) Venous Draw / Unknown 08/11/2017 4:18 PM EST 08/11/2017 6:00 PM EST Narrative Resulting Agency Comment Spec In Lab Fitz Quach MD CHEMISTRY ORDERABLES Performing Organization Address [facility] Co de Phone Number [facility] [place] [address] * HIV Screen, 4th Generation (08/11/2017 4:18 PM EST) HIV Ab/Ag Screen Negative Negative [facility] Quach MD CHEMISTRY ORDERABLES Performing Organization Address [facility] Co de Phone Number [facility] [place] [address] documented in this encounter Visit Diagnoses Not on filedocumented in this encounter Care Teams Night Filler Relationship Specialty Start Date End Date Laura Ho MD [address] [place] [address] PCP - General Family Medicine 06/28/16 documented as of this encounter
--- OUTSIDE RECORDS SUMMARY | 2024-07-06 00:50 | XMS_ITS | Encounter Summary ---
Author Organization [facility] Address [facility] [place] [place] [address] Care Team Providers Care Hay Farmer Name Role Phone Laura Ho MD Primary Care Provider [phone] Encounter Details Date Type Department Care Team (Latest Contact Info) Description 09/05/2019 10:10 AM EST Ancillary Procedure Radiology Library at [facility] [place] [address] Gorge Edgar MD [facility] [place] [address] Abnormal findings on diagnostic imaging of limbs [...] the Left knee was performed. FINDINGS: The cacqi-qe-hopk includes only 8 cm length of distal [...] the Left knee was performed. FINDINGS: The yvbbd-uk-hjnt includes only 8 cm length of distal [...] structure documented in this encounter Care Teams Hay Farmer Relationship Specialty Start Date End Date Laura Ho MD [address] [place] [address] PCP - General Family Medicine 06/28/16 documented as of this encounter
--- OUTSIDE RECORDS SUMMARY | 2024-07-06 00:50 | XMS_ITS | Encounter Summary ---
Author Organization [facility] [place] [address] Care Team Providers Care Clinical Review Nurse Name Role Phone Tito Fisher MD Primary Care Provider [phone] Encounter Details Date Type Department Care Team (Latest Contact Info) Description 02/23/2016 12:45 PM EDT Laboratory Appointment Lab [address] [place] [phone] Bipolar I disorder, most recent episode (or [...] Stimulating Hormone 2.63 0.27 - 4.20 mcIU/mL [facility] Blood specimen (specimen) 02/23/2016 1:21 PM EDT 02/23/2016 1:26 PM EDT Narrative Resulting Agency Comment Spec In Lab Laura Pickering MD CHEMISTRY ORDERABLES Performing Organization Address [facility] Co de Phone Number [facility] [place] [address] * [place] level (02/23/2016 1:21 PM EDT) [place] 0.53 mmol/L [facility] Comment: Therapeutic [...] Pickering MD CHEMISTRY ORDERABLES Performing Organization Address [facility] Co de Phone Number [facility] [place] [address] * Creatinine (02/23/2016 1:21 PM EDT) Creatinine 1.20 0.80 - 1.50 mg/dL [facility] Comment: Please note that the pediatric reference intervals supplied above were not validated at [facility]. Results from pediatric patients should be interpreted [...] the following links into your internet browser. [email or web address] Blood specimen (specimen) 02/23/2016 1:21 PM EDT 02/23/2016 1:26 PM EDT Narrative Resulting Agency Comment Spec In Lab Laura Pickering MD CHEMISTRY ORDERABLES Performing Organization Address City/[facility]/ZIP Co de Phone Number [facility] [place] [address] * Calcium (02/23/2016 1:21 PM EDT) Calcium 10.2 8.5 - 10.5 mg/dL [facility] Blood specimen (specimen) 02/23/2016 1:21 PM EDT 02/23/2016 1:26 PM EDT Narrative Resulting Agency Comment Spec In Lab Laura Pickering MD CHEMISTRY ORDERABLES Performing Organization Address City/[facility] Co de Phone Number [facility] [place] [address] documented in this encounter Visit Diagnoses Diagnosis Bipolar I disorder, most recent episode (or current) depressed, severe, specified as with psychotic behavior documented in this encounter Care Teams Clinical Review Nurse Relationship Specialty Start Date End Date Tito Fisher MD [address] [place] [address] PCP - General Family Medicine 12/09/15 06/27/16 documented as of this encounter
--- OUTSIDE RECORDS SUMMARY | 2024-07-06 00:50 | XMS_ITS | Encounter Summary ---
Author Organization [facility] Address [facility] [place] [address] Care Team Providers Care Stringer Up Soldering Machine Name Role Phone Laura Ho MD Primary Care Provider [phone] Encounter Details Date Type Department Care Team (Late st Contact Info) Description 08/06/2020 Orders [place] [id number] Antonette Tejada RN Nausea and vomiting, intractability [...] 12:05 pm) PATIENT INFO: ID #: ? [id number] ?: ??[id number] (40 yrs)(M) Name: ? HARVEY RAMIREZ ?Visit Date: 09/03/2020 11:33 am PERFORMED BY: Performed By: ? Tahira Soliz RDMS Attending: ?Penny MURILLO, Lorenzo Morales Resident: ? Jesus Cowan MD Referred By: ?JORGE LUIS RIOS Location: ? [facility] SERVICE(S) PROVIDED: UABDLIM - Abdominal Limited Survey Single ? [id number] Organ or Quadrant - [id number] INDICATIONS: assess gallbladder COMPARISON: Prior US: 01/18/18 [...] 09/03/2020 12:05 pm) PATIENT INFO: ID #: [id number] : [id number] (40 yrs)(M) Name: HARVEY RAMIREZ Visit Date: 09/03/2020 11:33 am PERFORMED BY: Performed By: Tahira Soliz RDMS Attending: Lorenzo Francis MD Resident: Jesus Cowan MD Referred By: JORGE LUIS RIOS Location: [facility] SERVICE(S) PROVIDED: UABDLIM - Abdominal Limited Survey Single 00867 Organ or Quadrant - [id number] INDICATIONS: assess gallbladder COMPARISON: Prior US: 01/18/18 [...] this report, please contact the number below. Lorenzo Francis, Staff Physician Electronically Signed Final [...] site documented in this encounter Care Teams Stringer Up Soldering Machine Relationship Specialty Start Date End Date Laura Ho MD [address] [place] [address] PCP - General Family Medicine 06/28/16 documented as of this encounter
--- OUTSIDE RECORDS SUMMARY | 2024-07-06 00:50 | XMS_ITS | Encounter Summary ---
Author Organization [facility] [place] [address] Care Team Providers Care Gasoline Tester Name Role Phone Laura Ho MD Primary Care Provider [phone] Encounter Details Date Type Department Care Team (Latest Contact Info) Description 01/12/2018 Transcribe [place] [address] Karlene Castellon APRN [address] [place] [address] Localized edema; Hepatitis C virus [...] EDT) Glucose 116 65 - 199 mg/dL [facility] Comment:Diabetes: >=200 mg/d L plus symptoms Blood Urea Nitrogen 18 10 - 20 mg/dL [facility] Creatinine 1.27 0.80 - 1.50 mg/dL [facility] Sodium 138 135 - 145 mmol/L [facility] Potassium 3.8 3.5 - 5.0 mmol/L [facility] Comment: Please note: ??Patients with WBC >100,000 may have falsely elevated Potassium levels. ??For accurate Potassium quantification in these patients send serum separator tube (gold top) for subsequent determinations. ??Contact the Clinical Chemistry Laboratory if there are any questions. Chloride 100 98 - 107 mmol/L [facility] Carbon Dioxide 26 22 - 31 mmol/L [facility] Anion Gap 12 5 - 15 mmol/L [facility] Calcium 10.0 8.5 - 10.5 mg/dL [facility] Protein, Total 7.2 6.1 - 8.0 gm/dL [facility] Albumin 4.6 3.2 - 5.2 gm/dL [facility] Aspartate Aminotransferase 55(H) 0 - 39 unit/L [facility] Alanine Aminotransferase 84(H) 0 - 55 unit/L [facility] Alkaline Phosphatase 107 40 - 120 unit/L [facility] Bilirubin, Total 0.5 0.2 - 1.3 mg/dL [facility] Est Glomerular Filtration Rate 71 >=60 mL/min/1. 73 m?? [facility] Comment: The eGFR was calculated using the CKD-EPI equation. As with all creatinine based estimates of kidney function, eGFR values calculated with the CKD-EPI equation are not accurate in patients with acute kidney failure, extremes of body mass or the acutely ill. [email or web address]/DHnkdep [email or web address]://[place]/DHMCnkf eGFR 82 >=60 mL/min/1. 73 m?? [facility] Comment: The eGFR was calculated using the CKD-EPI equation. As with all creatinine based estimates of kidney function, eGFR values calculated with the CKD-EPI equation are not accurate in patients with acute kidney failure, extremes of body mass or the acutely ill. [email or web address]/DHnkdep [email or web address]://[place]/DHMCnkf Blood specimen (specimen) 01/13/2018 8:40 AM EDT 01/13/2018 8:45 AM EDT Narrative Resulting Agency Comment Spec In Lab Karlene Castlelon RN RADIATION ONCOLOGY CHEMISTRY ORDERAB LES Performing Organization Address City/[facility] Co de Phone Number [facility] [place] [address] * pro-Brain Natriuretic Peptide (01/13/2018 8:40 AM EDT) NT-proBNP 30 <=125 pg/mL [facility] Blood specimen (specimen) 01/13/2018 8:40 AM EDT 01/13/2018 8:45 AM EDT Narrative Resulting Agency Comment Spec In Lab Karlene Castellon RN RADIATION ONCOLOGY CHEMISTRY ORDERAB LES Performing Organization Address [facility] Co de Phone Number [facility] [place] [address] * Hepatitis C RNA, quantitative, PCR (01/13/2018 8:40 AM EDT) Pathologist [facility] [place] HCV Viral Load 171,046 IU/mL [facility] HCV Viral Load Result: [id number] IU/mL Indication for Study: Hepatitis C Infection Analysis: The Nunez RealTime HCV assay is an in vitro reverse registration officer polymerase chain reaction (RT-PCR)for the quantitation of hepatitis C viral (HCV) RNA in human serum or plasma (EDTA) from HCV-infected individuals. Sample: plasma (0.7 mL minimum volume) Method: Nunez RealTime HCV Assay Linear Range: 12 IU/mL - 100,000,000IU/mL Note: The Nunez RealTime HCV Assay has been approved by the U.S. Food and Drug Administration. [facility] Comment: [VERIFIED DATE]01.17.18 Verified By:Harvey Anand (Electronic Signature) Blood specimen (specimen) 01/13/2018 8:40 AM EDT 01/16/2018 8:12 AM EDT Narrative Resulting Agency Comment Spec In Lab Karlene Castellon APRN MOLECULAR ORDERAB LES Performing Organization Address [facility]/ZIP Co de Phone Number [facility] [place] [address] * Lamotrigine Lvl (01/13/2018 8:40 AM EDT) Lamotrigine Lvl (NOVEMBER) 2.9 2.5 - 15.0 mcg/mL [facility] Comment: ADDITIONAL INFORMATION This test was developed and its performance characteristics determined by [facility] in a manner consistent with CLIA requirements. This test has not been cleared or approved by the U.S. Food and Drug Administration. Test Performed by: [facility] [address] [place] [address] Blood specimen (specimen) 01/13/2018 8:40 AM EDT 01/13/2018 11:53 AM EDT Narrative Resulting Agency Comment Spec In Lab Karlene Castellon APRN LAB SEND OUT ORDE RABLES Performing Organization Address [facility] Co de Phone Number [facility] [place] [address] * TSH (01/13/2018 8:40 AM EDT) [facility] Thyroid Stimulating Hormone 3.44 0.27 - 4.20 mlU/ML [facility] Blood specimen (specimen) 01/13/2018 8:40 AM EDT 01/13/2018 8:45 AM EDT Narrative Resulting Agency Comment Spec In Lab Karlene Castellon APRN CHEMISTRY ORDERAB LES Performing Organization Address [facility] Co de Phone Number [facility] [place] [address] * Magnesium (01/13/2018 8:40 AM EDT) Magnesium 0.96 0.69 - 1.07 mmol/L [facility] Blood specimen (specimen) 01/13/2018 8:40 AM EDT 01/13/2018 8:45 AM EDT Narrative Resulting Agency Comment Spec In Lab Karlene Castellon RN RADIATION ONCOLOGY CHEMISTRY ORDERAB LES Performing Organization Address [facility] de Phone Number [facility] [place] [address] * [place] level (01/13/2018 8:40 AM EDT) [place] 1.17 <=1.20 mmol/L [facility] Comment: Therapeutic level for bipolar [...] Agency Comment Spec In Lab Karlene Loyaell RN RADIATION ONCOLOGY CHEMISTRY ORDERAB LES Performing Organization Address [facility] Co de Phone Number [facility] [place] [address] documented in this encounter Visit Diagnoses Diagnosis Localized edema Edema Hepatitis C virus infection without hepatic coma, unspecified chronicity documented in this encounter Care Teams Gasoline Tester Relationship Specialty Start Date End Date Laura Ho MD [address] [place] [address] PCP - General Family Medicine 06/28/16 documented as of this encounter
--- OUTSIDE RECORDS SUMMARY | 2024-07-06 00:50 | XMS_ITS | Encounter Summary ---
Author Organization [facility] [place] [address] Care Team Providers Care Calciminer Name Role Phone Laura Ho MD Primary Care Provider Reason for Referral * Consultation (Routine) - Closed Specialty Diagnoses / Procedures Referred By Contac t Referred To Contact General Surgery Diagnoses Non-intractable vomiting with nausea, unspecified vomiting type Harvey Roblero, [facility] [place] [address] [facility] [address] [address] Referral ID Status Reason Start Date Expiration Date V isits Requested Visits Authorized [id number] Closed Consult, Test & Treat 08/05/2020 08/05/2021 1 1 Reason for Visit * Reason Comments Emesis Encounter Details Date Type Department Care Team (Late st Contact Info) Description 08/05/2020 11:22 AM EST - 08/05/2020 4:32 PM EST [place] [address] Non-intractable vomiting with nausea, unspecified [...] 08/05/2020 2:[address] with OWNER OPERATOR * Kd Cowan RN - 08/05/2020 2:00 [...] that he eats a large amount of vest tailor treats. Upto 1 box/day. Is also concerned [...] Negative mcL Appearance UA Clear Clear Spec [place] UA 1.018 1.006 - 1.030 Color UA [...] below. Electronically signed by: Kelsey Lynn MD, [facility] ([phone]), at 08/05/2020 3:23 PM Bedside right upper [...] Disposition: d/c home Harvey Roblero PA 08/05/20 1007 documented in this encounter Miscellaneous Notes * [...] ? Electronically signed by: Kelsey Lynn MD, [facility] ([phone]), at 08/05/2020 3:23 PM Narrative 08/05/2020 3:23 [...] administration of contrast. Administered 96.0 ml of AZXDKPSCW532.00 mg/ml. COMPARISON: Abdominal ultrasound 01/18/2018. FINDINGS: Lower [...] contact the number below. Chloe Sullivan DO [facility] [place] [place] CT ORDE NESSKARINA * (ABNORMAL) Urinalysis Microscopic Exam (08/05/2020 2:31 PM EST) RBC, Urine 2 0 - 3 /HPF [facility] WBC, Urine 9(H) 0 - 3 /HPF [facility] Squamous Epithelial Cells Raw Data, Urine 2 <=4 /HPF [facility] Hyaline Casts, Urine 9(H) 0 - 2 /LPF [facility] Urine specimen (specimen) 08/05/2020 2:31 PM EST 08/05/2020 2:41 PM EST Narrative Resulting Agency Comment Spec In Lab Harvey BELL URINE ORDERABLES [facility] [place] [address] * (ABNORMAL) Urinalysis with reflex Culture (08/05/2020 2:31 PM EST) Glucose, Urine Dipstick Negative Negative mg/dL [facility] Protein, Urine Dipstick 30(A) Negative mg/dL [facility] Bilirubin, Urine Dipstick Negative Negative mg/dL [facility] Comment: Clinical correlation required for positive Urine Bilirubin results as false positive may occur with some drugs and drug related products. If a false positive is suspected a serum total bilirubin should be considered if clinically indicated. Urobilinogen, Urine Dipstick Normal Normal mg/dL [facility] pH, Urn (dipstick) 6.5 5.0 - 8.0 [facility] Blood, Urine Dipstick Negative Negative mg/dL [facility] Ketone, Urine Dipstick 15(A) Negative mg/dL [facility] Nitrite, Urine Dipstick Negative Negative [facility] Leukocytes, Urine Dipstick Small(A) Negative [facility] Appearance, Urine Dipstick Clear Clear [facility] Specific [place] Urine Automated 1.018 1.006 - 1.030 [facility] Color, Urine Dipstick Yellow Yellow [facility] Reflex to Culture No [facility] Urine specimen (specimen) 08/05/2020 2:31 PM EST 08/05/2020 2:41 PM EST Narrative Resulting Agency Comment Spec In Lab Chloe Mancilla Laurie DO URINE ORDER [facility] [place] [address] * (ABNORMAL) Blood Gas Venous (08/05/2020 12:35 PM EST) pH, Venous 7.32 7.32 - 7.42 [facility] PCO2, Venous 46 41 - 51 mmHg [facility] PO2, Venous 27 25 - 40 mmHg [facility] Bicarbonate, Venous 23.2 mmol/L [facility] Base Excess, Venous -2.8 mmol/L [facility] Hgb Blood Gas 16.6(H) 13.7 - 16.5 gm/dL [facility] Oxyhemoglobin, Venous 50.8 % [facility] Carboxyhemoglob in, Venous 4.4 % [facility] Comment: Nonsmokers: 0.5-1.5% COHB Smokers: Variable, but usually less than 10% Toxic: 20-30% COHB Lethal: Greater than 60% COHB Methemoglobin, Venous 0.3 <=1.5 % [facility] Na Whole Blood 137 135 - 145 mmol/L [facility] K Whole Blood 3.6 3.5 - 5.0 mmol/L [facility] Comment: Please note: Patients with WBC >100,000 may have falsely elevated Potassium levels. Contact the Clinical Chemistry Laboratory if there are any questions. ICa Whole Blood 1.29 1.15 - 1.33 mmol/L [facility] Comment: Note: ??Total bilirubin higher than 20 mg/dL may lead to falsely low ionized calcium. CL Whole Blood 100 98 - 107 mmol/L [facility] Gluc Whole Bld 87 65 - 199 mg/dL [facility] Comment:Diabetes: >=200 mg/d L plus symptoms Lactate WB 1.5 0.5 - 2.2 mmol/L [facility] Blood Gas Source Venous [facility] Blood specimen (specimen) Venous Draw / Unknown 08/05/2020 12:35 PM EST 08/05/2020 12:53 PM EST Narrative Resulting Agency Comment Spec In Lab Harvey BELL CHEMISTRY ORDERABLES Performing Organization Address [facility] Co de Phone Number [facility] [place] [address] * Gold Tube HOLD (08/05/2020 12:30 PM EST) Gold Hold Sample in lab. [facility] Blood specimen (specimen) Venous Draw / Unknown 08/05/2020 12:30 PM EST 08/05/2020 12:55 PM EST Harvey BELL CHEMISTRY ORDERABLES Performing Organization Address [facility] Co de Phone Number [facility] [place] [address] * Blue Tube HOLD (08/05/2020 12:30 PM EST) Blue Hold Sample in lab. [facility] Blood specimen (specimen) Venous Draw / Unknown 08/05/2020 12:30 PM EST 08/05/2020 12:55 PM EST Harvey BELL HEMATOLOGY ORDERABLE S Performing Organization Address [facility] Co de Phone Number [facility] [place] [address] * (ABNORMAL) Differential, Automated (08/05/2020 12:30 PM EST) Neutrophil % 77.7 % [facility] Neutrophil Absolute 11.19(H) 1.70 - 6.10 x10(3)/mc L [facility] Lymph % 15.8 % [facility] Lymphocytes Abs 2.3 0.9 - 3.2 x10(3)/mc L [facility] Monocyte % 3.7 % [facility] Monocyte Abs 0.5 0.3 - 0.9 x10(3)/[facility] Eos % 1.7 % [facility] Eosinophils Abs 0.2 0.0 - 0.4 x10(3)/[facility] Basophil % 0.8 % [facility] Baso Absolute 0.1 0.0 - 0.1 x10(3)/[facility] Immature Gran % 0.30 % [facility] Comment: Immature granulocytes(IG's)percentage and absolute count will include metamyelocytes, myelocytes, and promyelocytes. Blood smears from CBCs yielding IG's will be scanned manually for concordance. If this scan disagrees with the automated IG or if promyelocytes are noted, a manual differential will be performed. Immature Gran Absolute 0.05(H) 0.00 - 0.04 x10(3)/[facility] Blood specimen (specimen) 08/05/2020 12:30 PM EST 08/05/2020 12:54 PM EST Narrative Resulting Agency Comment Spec In Lab Harvey BELL HEMATOLOGY ORDERABLE S Performing Organization Address City/State/[facility] Co de Phone Number [facility] [place] [address] * (ABNORMAL) Hemogram (08/05/2020 12:30 PM EST) White Blood Cell 14.4(H) 4.0 - 9.5 x10(3)/[facility] Red Blood Cell 5.37 4.58 - 5.54 x10(6)/[facility] Hemoglobin 15.8 13.7 - 16.5 gm/dL [facility] Hematocrit 49.0(H) 40.5 - 48.5 % [facility] Mean Cell Volume 91.2 82.9 - 93.1 fL [facility] Mean Cell Hemoglobin 29.4 27.5 - 32.1 pg [facility] Mean Cell Hemoglobin Concentration 32.2 32.0 - 35.7 gm/dL [facility] Platelet 378(H) 145 - 357 x10(3)/mc L [facility] RDW Standard Deviation 44.0 36.0 - 45.0 fL [facility] RDW coefficient of variation 13.1 11.4 - 13.8 % [facility] Mean Platelet Volume 10.3 7.6 - 12.9 fL [facility] NRBC% auto 0.0 % [facility] NRBC Absolute 0.000 0.000 - 0.000 x10(3)/mc L [facility] Blood specimen (specimen) 08/05/2020 12:30 PM EST 08/05/2020 12:54 PM EST Narrative Resulting Agency Comment Spec In Lab Harvey BELL HEMATOLOGY ORDERABLE S Performing Organization Address City/[facility]/ZIP Co de Phone Number [facility] [place] [address] * PSA Screen (08/05/2020 12:30 PM EST) [facility] PSA Screen 0.88 0.00 - 4.00 ng/mL [facility] Comment: PLEASE NOTE: The above reference interval is intended for healthy males with an intact prostate. Values within this reference interval may indicate recurrence in men who have undergone radical prostatectomy. Blood specimen (specimen) 08/05/2020 12:30 PM EST 08/05/2020 12:54 PM EST Narrative Resulting Agency Comment Spec In Lab Chloe Sullivan DO CHEMISTRY O RDERABLES Performing Organization Address City/[facility]/ZIP Co de Phone Number [facility] [place] [address] * Hemoglobin A1c (08/05/2020 12:30 PM EST) Hemoglobin A1c 4.9 4.3 - 5.6 % [facility] Comment: Reference Range: 4.3 [...] 1, S67-74 Estimated Average Glucose 93 mg/dL [facility] Comment: eAG equivalents for [...] into estimated average glucose values. ??Diabetes Care 2008:31(8):5615-3144. Blood specimen (specimen) 08/05/2020 12:30 PM EST 08/05/2020 12:54 PM EST Narrative Resulting Agency Comment Spec In Lab Chloe Sullivan DO CHEMISTRY O RDERABLES [facility] [place] [address] * Lipase (08/05/2020 12:30 PM EST) Pathologist [facility] Lipase 12 0 - 60 unit/L [facility] Blood specimen (specimen) 08/05/2020 12:30 PM EST 08/05/2020 12:54 PM EST Narrative Resulting Agency Comment Spec In Lab Chloe Sullivan DO CHEMISTRY O RDERABLES Performing Organization Address [facility] Co de Phone Number [facility] [place] [address] * (ABNORMAL) Hepatic Function Panel (08/05/2020 12:30 PM EST) Pathologist [facility] Protein, Total 8.9(H) 6.1 - 8.0 gm/dL [facility] Albumin 5.4(H) 3.2 - 5.2 gm/dL [facility] Aspartate Aminotransferase 18 0 - 39 unit/L [facility] Alanine Aminotransferase 12 0 - 55 unit/L [facility] Alkaline Phosphatase 75 40 - 130 unit/L [facility] Bilirubin, Total 0.8 0.2 - 1.3 mg/dL [facility] Bilirubin, Direct 0.2 0.0 - 0.3 mg/dL [facility] Blood specimen (specimen) 08/05/2020 12:30 PM EST 08/05/2020 12:54 PM EST Narrative Resulting Agency Comment Spec In Lab Chloe Sullivan DO CHEMISTRY O RDERABLES Performing Organization Address City/[facility]/ZIP Co de Phone Number [facility] [place] [address] * (ABNORMAL) Basic Metabolic Panel (non-fasting) (08/05/2020 12:30 PM EST) [facility] Glucose 89 65 - 199 mg/dL [facility] Comment:Diabetes: >=200 mg/d L plus symptoms Blood Urea Nitrogen 11 10 - 20 mg/dL [facility] Creatinine 1.26 0.80 - 1.50 mg/dL [facility] Sodium 139 135 - 145 mmol/L [facility] Potassium 3.5 3.5 - 5.0 mmol/L [facility] Comment: Please note: ??Patients with WBC >100,000 may have falsely elevated Potassium levels. ??For accurate Potassium quantification in these patients send serum separator tube (gold top) for subsequent determinations. ??Contact the Clinical Chemistry Laboratory if there are any questions. Chloride 99 98 - 107 mmol/L [facility] Carbon Dioxide 26 22 - 31 mmol/L [facility] Anion Gap 14 5 - 15 mmol/L [facility] Calcium 10.8(H) 8.5 - 10.5 mg/dL [facility] Est Glomerular Filtration Rate 70 >=60 mL/min/1. 73 m?? [facility] Comment: This patient? s [...] Lab Chloe Sullivan DO CHEMISTRY O RDERABLES [facility] [address] [place] [address] * US Gallbladder (Sync) (08/05/2020 12:02 PM [...] intrahepatic and biliary ductal dilation CPT Code 26661:Limited Abdomen- GB/SBO/SSTI/FF or Paracentesis (74750) Electronically Signed by the following ??Attending: ?on [id number] PDF Procedure Note Konstantin Valencia MD - [...] intrahepatic and biliary ductal dilation CPT Code 79737:Limited Abdomen- GB/SBO/SSTI/FF or Paracentesis (35830) Electronically Signed by the following Attending: on [id number] PDF Konstantin Valencia MD EA IMAGES documented [...] [place]) documented in this encounter Care Teams Calciminer Relationship Specialty Start Date End Date Laura Ho MD [address] [place] [address] PCP - General Family Medicine 06/28/16 documented as of this encounter
--- OUTSIDE RECORDS SUMMARY | 2024-07-06 00:50 | XMS_ITS | Encounter Summary ---
Author Organization [facility] Address [facility] [address] [address] Care Team Providers Care Veneer Jointer Returner Name Role Phone Laura Ho MD Primary Care Provider [phone] Encounter Details Date Type Department Care Team (Late st Contact Info) Description 04/09/2020 Telephone Dermatology at [facility] [address] [place] [address] [facility] [address] [facility] [place] [address] Social History Tobacco Use Types Packs/Day Years [...] on filedocumented in this encounter Care Teams Veneer Jointer Returner Relationship Specialty Start Date End Date Laura Ho MD [address] [place] [address] PCP - General Family Medicine 06/28/16 documented as of this encounter
--- OUTSIDE RECORDS SUMMARY | 2024-07-06 00:50 | XMS_ITS | Encounter Summary ---
Author Organization [facility] [place] [address] Care Team Providers Care Screen Printing Equipment Setter Name Role Phone Tito Fisher MD Primary Care Provider [phone] Encounter Details Date Type Department Care Team (Latest Contact Info) Description 03/08/2016 11:35 AM EDT Laboratory Appointment Lab [address] [place] [phone] Bipolar I disorder, most recent episode (or [...] Stimulating Hormone 4.75(H) 0.27 - 4.20 mcIU/mL [facility] Blood specimen (specimen) 03/08/2016 11:57 AM EDT 03/08/2016 12:04 PM EDT Narrative Resulting Agency Comment Spec In Lab Laura Pickering MD CHEMISTRY ORDERABLES Performing Organization Address [facility] Co de Phone Number [facility] [place] [address] * [place] level (03/08/2016 11:57 AM EDT) [place] 0.96 mmol/L [facility] Comment: Therapeutic level for bipolar [...] ORDERABLES Performing Organization Address [facility] Co de Phone Number [facility] [place] [address] * Creatinine (03/08/2016 11:57 AM EDT) Creatinine 1.28 0.80 - 1.50 mg/dL [facility] Comment: Please note that the pediatric reference intervals supplied above were not validated at [facility]. Results from pediatric patients should be interpreted in conjunction to the patient's age, height and muscle mass. Est Glomerular Filtration Rate >60 >=60 [facility] Comment: This [...] the following links into your internet browser. [email or web address] Blood specimen (specimen) 03/08/2016 11:57 AM EDT 03/08/2016 12:04 PM EDT Narrative Resulting Agency Comment Spec In Lab Laura Pickering MD CHEMISTRY ORDERABLES Performing Organization Address City/[facility] Co de Phone Number [facility] [place] [address] * Calcium (03/08/2016 11:57 AM EDT) Calcium 9.4 8.5 - 10.5 mg/dL [facility] Blood specimen (specimen) 03/08/2016 11:57 AM EDT 03/08/2016 12:04 PM EDT Narrative Resulting Agency Comment Spec In Lab Laura Pickering MD CHEMISTRY ORDERABLES Performing Organization Address City/[facility] Co de Phone Number [facility] [place] [address] documented in this encounter Visit Diagnoses Diagnosis Bipolar I disorder, most recent episode (or current) depressed, severe, specified as with psychotic behavior documented in this encounter Care Teams Screen Printing Equipment Setter Relationship Specialty Start Date End Date Tito Fisher MD [address] [place] [address] PCP - General Family Medicine 12/09/15 06/27/16 documented as of this encounter
--- OUTSIDE RECORDS SUMMARY | 2024-07-06 00:50 | XMS_ITS | Encounter Summary ---
Author Organization [facility] [address] Care Team Providers Care Cue Worker Name Role Phone Laura Ho MD Primary Care Provider [phone] Encounter Details Date Type Department Care Team (Latest Contact Info) Description 12/11/2018 9:45 AM EDT Laboratory Appointment Lab [address] [place] [phone] Screening for lipoid disorders; Encounter for long-term [...] 10:30 AM EDT) Neutrophil % 51.0 % [facility] Neutrophil Absolute 4.75 1.70 - 6.10 x10(3)/ L [facility] Lymph % 27.5 % [facility] Lymphocytes Abs 2.6 0.9 - 3.2 x10(3)/ L [facility] Monocyte % 9.0 % [facility] Monocyte Abs 0.8 0.3 - 0.9 x10(3)/mc L [facility] Eos % 10.5 % [facility] Eosinophils Abs 1.0(H) 0.0 - 0.4 x10(3)/mc L [facility] Basophil % 1.7 % [facility] Baso Absolute 0.2(H) 0.0 - 0.1 x10(3)/mc L [facility] Immature Gran % 0.30 % [facility] Comment: Immature granulocytes(IG's)percentage and absolute count will include metamyelocytes, myelocytes, and promyelocytes. Blood smears from CBCs yielding IG's will be scanned manually for concordance. If this scan disagrees with the automated IG or if promyelocytes are noted, a manual differential will be performed. Immature Gran Absolute 0.03 0.00 - 0.04 x10(3)/mc L [facility] Blood specimen (specimen) 12/11/2018 10:30 AM EDT 12/11/2018 10:36 AM EDT Narrative Resulting Agency Comment Spec In Lab Laura Ho MD HEMATOLOGY ORDERABLE S Performing Organization Address City/[facility]/ZIP Co de Phone Number [facility] [place] [address] * (ABNORMAL) Hemogram (12/11/2018 10:30 AM EDT) White Blood Cell 9.3 4.0 - 9.5 x10(3)/mc L [facility] Red Blood Cell 5.14 4.58 - 5.54 x10(6)/mc L [facility] Hemoglobin 15.4 13.7 - 16.5 gm/dL [facility] Hematocrit 47.5 40.5 - 48.5 % [facility] Mean Cell Volume 92.4 82.9 - 93.1 fL [facility] Mean Cell Hemoglobin 30.0 27.5 - 32.1 pg [facility] Mean Cell Hemoglobin Concentration 32.4 32.0 - 35.7 gm/dL [facility] Platelet 302 145 - 357 x10(3)/mc L [facility] RDW Standard Deviation 45.2(H) 36.0 - 45.0 [facility] RDW coefficient of variation 13.2 11.4 - 13.8 % [facility] Mean Platelet Volume 11.3 7.6 - 12.9 fL [facility] NRBC% auto 0.0 % [facility] NRBC Absolute 0.000 0.000 - 0.000 x10(3)/mc L [facility] Blood specimen (specimen) 12/11/2018 10:30 AM EDT 12/11/2018 10:36 AM EDT Narrative Resulting Agency Comment Spec In Lab Laura Ho MD HEMATOLOGY ORDERABLE S Performing Organization Address City/[facility]/ZIP Co de Phone Number [facility] [place] [address] * Lipid Panel (12/11/2018 10:30 AM EDT) Cholesterol, Total 143 mg/dL [facility] Comment: Lower Risk: <200 mg/dL Average Risk: 200-239 mg/dL Higher Risk: >kg=824 mg/dL Triglyceride 127 mg/dL [facility] Comment: Average Risk/Lower Risk: <150 mg/dL Borderline High Risk: 150-199 mg/dL High Risk: 200-499 mg/dL Very High Risk: >ey=635 mg/dL HDL Cholesterol 59 mg/dL [facility] Comment: Males: ?? Higher Risk: <40 mg/dL Females: ?? HIgher Risk: <50 mg/dL LDL Cholesterol 59 mg/dL [facility] Comment: Lowest Risk: <100 mg/dL Lower Risk: 100-129 mg/dL Borderline High Risk: 130-159 mg/dL High Risk: 160-189 mg/dL Very High Risk: >ov=121 mg/dL Cholesterol/HDL Ratio 2.4 ratio [facility] Lipid Interpretation See Note [facility] Comment: Lipid management should be guided by a patient? s ASCVD risk, goals and preferences. ACC/AHA Guidelines recommend high intensity statin if clinical ASCVD or LDL greater than or equal to 190 mg/dL. http://ImpulseFlyer.com/ANI-JQN-Twncpndla Adults aged 40-75 with LDL 70-189 mg/dL should have their 10 year ASCVD risk estimated with the ACC/AHA ASCVD risk senior electrical estimator http://tools.acc.org/SDANG-Aqnc-Mpfiaefvc/ Statin should be discussed if risk greater [...] Ho MD CHEMISTRY ORDERABLES Performing Organization Address [facility] de Phone Number [facility] [place] [address] * Hepatitis C RNA, quantitative, PCR (12/11/2018 10:30 AM EDT) HCV Viral Load 906,454 IU/mL [facility] HCV Viral Load Result: [id number] IU/mL Indication for Study: Hepatitis C Infection Analysis: The Nunez RealTime HCV assay is an in vitro reverse nurse school polymerase chain reaction (RT-PCR)for the quantitation of hepatitis C viral (HCV) RNA in human serum or plasma (EDTA) from HCV-infected individuals. Sample: plasma (0.7 mL minimum volume) Method: Nunez RealTime HCV Assay Linear Range: 12 IU/mL - 100,000,000IU/mL Note: The Nunez RealTime HCV Assay has been approved by the U.S. Food and Drug Administration. [facility] Comment: [VERIFIED DATE]12.19.18 Verified By:Sherice Paniagua (Electronic Signature) Blood specimen (specimen) 12/11/2018 10:30 AM EDT 12/18/2018 2:58 PM EDT Narrative Resulting Agency Comment Spec In Lab Laura Ho MD MOLECULAR ORDERABLES Performing Organization Address [facility] de Phone Number [facility] [place] [address] * [place] level (12/11/2018 10:30 AM EDT) [place] 0.85 <=1.20 mmol/L [facility] Comment: Therapeutic level for bipolar [...] In Lab Laura Ho MD CHEMISTRY ORDERABLES [facility] [place] [address] * (ABNORMAL) Comprehensive metabolic panel (non-fasting) (12/11/2018 10:30 AM EDT) Glucose 80 65 - 199 mg/dL [facility] Comment:Diabetes: >=200 mg/d L plus symptoms Blood Urea Nitrogen 9(L) 10 - 20 mg/dL [facility] Creatinine 1.11 0.80 - 1.50 mg/dL [facility] Sodium 137 135 - 145 mmol/L [facility] Potassium 4.1 3.5 - 5.0 mmol/L [facility] Comment: Please note: ??Patients with WBC >100,000 may have falsely elevated Potassium levels. ??For accurate Potassium quantification in these patients send serum separator tube (gold top) for subsequent determinations. ??Contact the Clinical Chemistry Laboratory if there are any questions. Chloride 99 98 - 107 mmol/L [facility] Carbon Dioxide 26 22 - 31 mmol/L [facility] Anion Gap 12 5 - 15 mmol/L [facility] Calcium 10.3 8.5 - 10.5 mg/dL [facility] Protein, Total 8.2(H) 6.1 - 8.0 gm/dL [facility] Albumin 4.8 3.2 - 5.2 gm/dL [facility] Aspartate Aminotransferase 60(H) 0 - 39 unit/L [facility] Alanine Aminotransferase 83(H) 0 - 55 unit/L [facility] Alkaline Phosphatase 93 40 - 120 unit/L [facility] Bilirubin, Total 0.5 0.2 - 1.3 mg/dL [facility] Est Glomerular Filtration Rate 83 >=60 mL/min/1. 73 m?? [facility] Comment: The eGFR was calculated using the CKD-EPI equation. As with all creatinine based estimates of kidney function, eGFR values calculated with the CKD-EPI equation are not accurate in patients with acute kidney failure, extremes of body mass or the acutely ill. http://[employer]/[facility] SHAWNEEnkf eGFR 96 >=60 mL/min/1. 73 m?? [facility] Comment: The eGFR was calculated using the CKD-EPI equation. As with all creatinine based estimates of kidney function, eGFR values calculated with the CKD-EPI equation are not accurate in patients with acute kidney failure, extremes of body mass or the acutely ill. [email or web address] Access [email or web address]/DHnkf Blood specimen (specimen) 12/11/2018 10:30 AM EDT 12/11/2018 10:36 AM EDT Narrative Resulting Agency Comment Spec In Lab Laura Ho MD CHEMISTRY ORDERABLES [facility] [place] [id number] documented in this encounter Visit Diagnoses Diagnosis Screening for lipoid disorders Encounter for long-term (current) use of other medications Encounter for therapeutic drug monitoring documented in this encounter Care Teams Cue Worker Relationship Specialty Start Date End Date Laura Ho MD [address] [place] [address] PCP - General Family Medicine 06/28/16 documented as of this encounter
--- OUTSIDE RECORDS SUMMARY | 2024-07-06 00:51 | XMS_ITS | Encounter Summary ---
Author Organization [facility] [place] [address] Care Team Providers Care Automotive Electrical Helper Name Role Phone Tito Fisher MD Primary Care Provider [phone] Encounter Details Date Type Department Care Team (Latest Contact Info) Description 02/06/2016 1:55 PM EDT Laboratory Appointment Lab [address] [place] [phone] Bipolar I disorder, most recent episode (or [...] Stimulating Hormone 0.80 0.27 - 4.20 mcIU/mL [facility] Blood specimen (specimen) 02/06/2016 2:36 PM EDT 02/06/2016 2:41 PM EDT Narrative Resulting Agency Comment Spec In Lab Laura Pickering MD CHEMISTRY ORDERABLES Performing Organization Address [facility] Co de Phone Number [facility] [place] [address] * [place] level (02/06/2016 2:36 PM EDT) [place] 0.12 mmol/L [facility] Comment: Therapeutic level for bipolar [...] Pickering MD CHEMISTRY ORDERABLES Performing Organization Address [facility] Co de Phone Number [facility] [place] [address] * Creatinine (02/06/2016 2:36 PM EDT) Creatinine 1.34 0.80 - 1.50 mg/dL [facility] Comment: Please note that the pediatric reference intervals supplied above were not validated at [facility]. Results from pediatric patients should be interpreted in conjunction to the patient's age, height and muscle mass. Est Glomerular Filtration Rate 60 >=60 [facility] [...] the following links into your internet browser. [email or web address] Blood specimen (specimen) 02/06/2016 2:36 PM EDT 02/06/2016 2:41 PM EDT Narrative Resulting Agency Comment Spec In Lab Laura Pickering MD CHEMISTRY ORDERABLES Performing Organization Address City/[facility] Co de Phone Number [facility] [place] [address] * Calcium (02/06/2016 2:36 PM EDT) Calcium 10.1 8.5 - 10.5 mg/dL [facility] Blood specimen (specimen) 02/06/2016 2:36 PM EDT 02/06/2016 2:41 PM EDT Narrative Resulting Agency Comment Spec In Lab Laura Pickering MD CHEMISTRY ORDERABLES Performing Organization Address City/[facility] Co de Phone Number [facility] [place] [address] documented in this encounter Visit Diagnoses Diagnosis Bipolar I disorder, most recent episode (or current) depressed, severe, specified as with psychotic behavior documented in this encounter Care Teams Automotive Electrical Helper Relationship Specialty Start Date End Date Tito Fisher MD [address] [place] [address] PCP - General Family Medicine 12/09/15 06/27/16 documented as of this encounter
--- OUTSIDE RECORDS SUMMARY | 2024-07-06 00:51 | XMS_ITS | Encounter Summary ---
Author Organization [facility] Address [address] [place] [address] Care Team Providers Care Cottage Attendant Name Role Phone Unknown, Provider Primary Care Provider Unava ilable Encounter Details Date Type Department Care Team (Late st Contact Info) Description 10/05/2014 Historical Results Only [facility] [place] Results [address] [place] [address] Santos Olmos MD Social History [...] CC: ? Transcribed Date/Time: 10/05/2014 (0857) ? Validation Software Facilitator: KASHMIR ? Printed Date/Time: 12/12/2018 (1101) ? [...] Gonzalez MD CC: Transcribed Date/Time: 10/05/2014 (0857) Validation Software Facilitator: KASHMIR Printed Date/Time: 12/12/2018 (1100) PAGE 1 Signed Report Santos Olmos MD IMG CT ORDERABLES Final Result documented in this encounter Visit Diagnoses Not on filedocumented in this encounter Care Teams Cottage Attendant Relationship Specialty Start Date End Date Unknown, Provider, PCP - General 10/07/14 12/24/19 documented as of this encounter
--- OUTSIDE RECORDS SUMMARY | 2024-07-06 00:51 | XMS_ITS | Encounter Summary ---
Author Organization [facility] Address [address] [place] [address] Care Team Providers Care Camp Coordinator Name Role Phone Unknown, Provider Primary Care Provider Unava ilable Encounter Details Date Type Department Care Team (Late st Contact Info) Description 01/05/2017 Historical Results Only [facility] Lab - Main [address] [address] Arian Charles MD Social History Tobacco Use [...] Diagnosis Comments HEPATITIS C DIAG PROGRESSIVE - [facility] Routine 01/05/2017 8:48 EDT COMPLETE BLOOD COUNT WITH DIFFERENTIAL (AUTO) Routine 01/05/2017 8:48 EDT HIV 1/2 AB, P24 AG - [facility] Routine 01/05/2017 8:47 EDT HEPATITIS A TOTAL [...] 4.87 1.7 - 7.0 10e3/ul 01/05/2017 11:31 [facility] BASO # - [facility] 0.09 0.0 - 0.3 10e3/uL 01/05/2017 11:31 [facility] BASO % - [facility] 1 0 - 2 % 01/05/2017 11:31 [facility] EOS # - [facility] 0.78(H) 0.05 - 0.5 10e3/uL 01/05/2017 11:31 [facility] EOS % - [facility] 9(H) 0 - 5 % 01/05/2017 11:31 [facility] GRAN % - [facility] 54 40 - 80 % 01/05/2017 11:31 [facility] HEMATOCRIT - [facility] 48.1 36.0 - 52.0 % 01/05/2017 11:31 [facility] HEMOGLOBIN - [facility] 16.0 13.7 - 17.5 g/dl 01/05/2017 11:31 [facility] IG# - [facility] 0.03 0 - 0.07 e3/uL 01/05/2017 11:31 [facility] IG% - [facility] 0.3 0 - 0.9 % 01/05/2017 11:31 [facility] LYMPH # - [facility] 2.48 0.9 - 2.9 e3/uL 01/05/2017 11:31 [facility] LYMPH% - [facility] 27 20 - 40 % 01/05/2017 11:31 [facility] MEAN CORPUSCULAR HGB - [facility] 30.2 26 - 34 pg 01/05/2017 11:31 [facility] MEAN CORPUSCULAR HGB CONC - [facility] 33.3 31 - 36 g/dL 01/05/2017 11:31 [facility] MEAN CELL VOLUME - [facility] 90.9 77 - 100 fl 01/05/2017 11:31 [facility] MONO # - [facility] 0.85 0.3 - 0.9 10e3/uL 01/05/2017 11:[address] [facility] MONO% - [facility] 9 0 - 12 % 01/05/2017 11:31 [facility] PLATELET COUNT 278 150 - 400 10e3/ul [facility]/05/2017 [facility] RED BLOOD COUNT - [facility] 5.29 4.3 - 5.7 10e6/ul 01/05/2017 11:31 [facility] RED CELL DISTRI WIDTH - [facility] 13.9 11.8 - 15.6 % 01/05/2017 11:31 [facility] WHITE BLOOD COUNT - [facility] 9.1 3.5 - 10.5 10e3/ul 01/05/2017 11:31 [facility] 01/05/2017 8:48 EDT 01/05/2017 8:[address] [facility] - 01/05/2017 11:31 EDT Does PT Have a Latex Allergy? NO us Arian Charles MD HEMATOLOGY & PF4 ORDERABLES F inal Result [facility] * HEPATITIS C DIAG PROGRESSIVE [facility] (01/05/2017 8:48 EDT) HEP C RNA BY [facility] [id number] Undetected IU/mL 01/08/2017 16:[address] [facility] Comment: Result in log IU/mL is 4.88. ADDITIONAL INFORMATION The quantification range of this assay is 15 to 100,000,000 IU/mL (1.18 log to 8.00 log IU/mL). Testing was performed by the [employer] AmpliPrep/YOU[employer]F TaqMan HCV Test, version 2.0 ([employer] Test Performed by: [id number] [place] [address] 4.88 01/08/2017 16:[address] [facility] 01/05/2017 8:48 EDT 01/05/2017 8:[address] [facility] - 01/08/2017 16:45 EDT Does PT Have a Latex Allergy? NO us Arian Charles MD CHEMISTRY & BLOOD GAS ORDERAB LES Final Result [facility] * (ABNORMAL) COMPREHENSIVE METABOLIC PANEL (CMP) (01/05/2017 8:47 EDT) Albumin % 4.0 3.4 - 5.0 g/dL 01/05/2017 10:40 [facility] ALKALINE PHOSPHATASE - [facility] 87 42 - 122 U/L 01/05/2017 10:40 [facility] BILIRUBIN TOTAL 0.5 0.0 - 1.0 mg/dL 01/05/2017 10:40 [facility] BUN - [facility] 17 7 - 18 mg/dL 01/05/2017 10:40 [facility] CALCIUM - [facility] 9.4 8.5 - 10.1 mg/dL 01/05/2017 10:40 [facility] Chloride 108(H) 98 - 107 mEq/L 01/05/2017 10:40 [facility] CO2 Total 25 21 - 32 mEq/L 01/05/2017 10:40 [facility] CREATININE 1.11 0.5 - 1.3 mg/dL 01/05/2017 10:40 [facility] eGFR >60 01/05/2017 10:40 [facility] Comment: Chronic renal impairment is defined as GFR <60 Multiply result by 1.210 for patients. Anion Gap 6 5 - 15 01/05/2017 10:40 [facility] GLUCOSE - [facility] 86 70 - 100 mg/dL 01/05/2017 10:40 [facility] Potassium 4.2 3.5 - 5.0 mEq/L 01/05/2017 10:[address] [facility] Sodium 139 135 - 145 mEq/L 01/05/2017 10:[address] [facility] TOTAL PROTEIN - [facility] 7.6 6.4 - 8.2 gm/dl 01/05/2017 10:[address] [facility] SGOT/AST - [facility] 56(H) 10 - 37 U/L 01/05/2017 10:[address] [facility] SGPT/ALT - [facility] 130(H) 12 - 78 U/L 01/05/2017 10:[address] [facility] 01/05/2017 8:47 EDT 01/05/2017 8:47 EDT [facility] - 01/05/2017 10:40 EDT Does PT Have a Latex Allergy? NO Arian Charles MD CHEMISTRY & BLOOD GAS ORDERAB LES Final Result Performing Organization Address [facility]/ZIP Co de Phone Number [facility] * HEPATITIS B SURFACE ANTIGEN (01/05/2017 8:47 EDT) Hep B Surface Ag Negative 01/05/2017 10:[address] [facility] Comment:Expected Values: Neg ative. 01/05/2017 8:47 EDT 01/05/2017 8:47 EDT [facility] - 01/05/2017 11:28 EDT Does PT Have a Latex Allergy? NO Arian Charles MD CHEMISTRY & BLOOD GAS ORDERAB LES Final Result [facility] * HEPATITIS B SURFACE ANTIBODY (01/05/2017 8:47 EDT) HEPATITIS B ANTIBODY (SURF) - [facility] Negative 01/05/2017 10:[address] [facility] Comment:Expected Values: Neg ative. 01/05/2017 8:47 EDT 01/05/2017 8:47 EDT [facility] - 01/05/2017 11:28 EDT Does PT Have a Latex Allergy? NO Arian Charles MD CHEMISTRY & BLOOD GAS ORDERAB LES Final Result Performing Organization Address [facility] de Phone Number [facility] * HEPATITIS A TOTAL ANTIBODY W REFLEX (01/05/2017 8:47 EDT) Hepatitis A Antibody, IgM Negative 01/05/2017 11:[address] [facility] Comment:Expected Values: Neg ative 01/05/2017 8:47 EDT 01/05/2017 8:47 EDT [facility] - 01/05/2017 11:28 EDT Does PT Have a Latex Allergy? NO Arian Charles MD CHEMISTRY & BLOOD GAS ORDERAB LES Final Result Performing Organization Address [facility] * HIV 1/2 AB, P24 AG - [facility] (01/05/2017 8:47 EDT) HIV 1/2 AB, P24 AG - [facility] Non-Reacti ve Non-React 01/05/2017 11:[address] [facility] Comment: Assayed using Siemens 4th generation Advia Centaur HIV 1/2 Ab, p24 Ag combination assay. 01/05/2017 8:47 EDT 01/05/2017 8:48 EDT [facility] - 01/05/2017 11:27 EDT Does PT Have a Latex Allergy? NO Arian Charles MD CHEMISTRY & BLOOD GAS ORDERAB LES Final Result Performing Organization Address [facility] Co de Phone Number [facility] documented in this encounter Visit Diagnoses Not on filedocumented in this encounter Care Teams Camp Coordinator Relationship Specialty Start Date End Date Unknown, Provider, PCP - General 10/07/14 12/24/19 documented as of this encounter
--- OUTSIDE RECORDS SUMMARY | 2024-07-06 00:51 | XMS_ITS | Encounter Summary ---
Author Organization [facility] [place] [address] Care Team Providers Care Chart Changer Name Role Phone Tito Fisher MD Primary Care Provider [phone] Encounter Details Date Type Department Care Team (Late st Contact Info) Description 01/22/2016 12:40 PM EDT Laboratory Appointment Lab [address] [place] [phone] Social History Tobacco Use Types Packs/Day Years [...] EDT) Glucose 74 65 - 199 mg/dL [facility] Comment:Diabetes: >=200 mg/d L plus symptoms Blood Urea Nitrogen 12 10 - 20 mg/dL [facility] Creatinine 1.17 0.80 - 1.50 mg/dL [facility] Comment: Please note that the pediatric reference intervals supplied above were not validated at [facility]. Results from pediatric patients should be interpreted in conjunction to the patient's age, height and muscle mass. Sodium 138 135 - 145 mmol/L [facility] Potassium 4.0 3.5 - 5.0 mmol/L [facility] Comment: Please note: ??Patients with WBC >100,000 may have falsely elevated Potassium levels. ??For accurate Potassium quantification in these patients send serum separator tube (gold top) for subsequent determinations. ??Contact the Clinical Chemistry Laboratory if there are any questions. Chloride 98 98 - 107 mmol/L [facility] Carbon Dioxide 25 22 - 31 mmol/L [facility] Anion Gap 15 5 - 15 mmol/L [facility] Calcium 9.7 8.5 - 10.5 mg/dL [facility] Protein, Total 8.3(H) 6.1 - 8.0 gm/dL [facility] Albumin 4.5 3.2 - 5.2 gm/dL [facility] Aspartate Aminotransferase 49(H) 0 - 39 unit/L [facility] Alanine Aminotransferase 69(H) 0 - 55 unit/L [facility] Alkaline Phosphatase 78 40 - 120 unit/L [facility] Bilirubin, Total 0.4 0.2 - 1.3 mg/dL [facility] Bilirubin, Direct 0.1 0.0 - 0.3 mg/dL [facility] Est Glomerular Filtration Rate >60 >=60 [facility] Comment: This estimated GFR (eGFR) [...] the following links into your internet browser. [email or web address] Blood specimen (specimen) Venous Draw / Unknown 01/22/2016 3:06 PM EDT 01/22/2016 3:11 PM EDT Narrative Resulting Agency Comment Spec In Lab Raulito Posada MD CHEMISTRY ORDERABLES [facility] [place] [id number] * (ABNORMAL) Differential, Automated (01/22/2016 3:06 PM EDT) Neutrophil % 49.3 % [facility] Neutrophil Absolute 4.12 1.50 - 6.30 x10(3)/mc L [facility] Lymph % 29.7 % [facility] Lymphocytes Abs 2.5 1.0 - 3.6 x10(3)/mc L [facility] Monocyte % 12.0 % [facility] Monocyte Abs 1.0 0.2 - 1.0 x10(3)/mc L [facility] Eos % 7.8 % [facility] Eosinophils Abs 0.6(H) 0.0 - 0.5 x10(3)/mc L [facility] Basophil % 1.1 % [facility] Baso Absolute 0.1 0.0 - 0.2 x10(3)/ L [facility] Immature Gran % 0.10 % [facility] Comment: Immature granulocytes(IG's)percentage and absolute count will include metamyelocytes, myelocytes, and promyelocytes. Blood smears from CBCs yielding IG's will be scanned manually for concordance. If this scan disagrees with the automated IG or if promyelocytes are noted, a manual differential will be performed. Immature Gran Absolute 0.01 0.00 - 0.05 x10(3)/ L [facility] Blood specimen (specimen) Venous Draw / Unknown 01/22/2016 3:06 PM EDT 01/22/2016 3:11 PM EDT Narrative Resulting Agency Comment Spec In Lab Raulito Posada MD HEMATOLOGY ORDERABLE S Performing Organization Address City/State/[facility] Co de Phone Number [facility] [place] [address] * (ABNORMAL) Hemogram (01/22/2016 3:06 PM EDT) White Blood Cell 8.4 4.0 - 10.0 x10(3)/[facility] Red Blood Cell 4.99 4.63 - 6.08 x10(6)/[facility] Hemoglobin 15.5 13.7 - 17.5 gm/dL [facility] Hematocrit 45.4 40.0 - 51.0 % [facility] Mean Cell Volume 91.0 79.0 - 92.[address] [facility] Mean Cell Hemoglobin 31.1 25.6 - 32.[address] [facility] Mean Cell Hemoglobin Concentration 34.1 32.0 - 36.5 gm/dL [facility] Platelet 328 145 - 370 x10(3)/ L [facility] RDW Standard Deviation 46.7(H) 35.0 - 46.[address] [facility] RDW coefficient of variation 14.1 10.9 - 14.4 % [facility] Mean Platelet Volume 10.3 9.0 - 12.[address] [facility] Blood specimen (specimen) Venous Draw / Unknown 01/22/2016 3:06 PM EDT 01/22/2016 3:11 PM EDT Narrative Resulting Agency Comment Spec In Lab Raulito Posada MD HEMATOLOGY ORDERABLE S Performing Organization Address City/[facility]/ZIP Co de Phone Number [facility] [place] [address] * TSH (01/22/2016 3:06 PM EDT) Thyroid Stimulating Hormone 1.06 0.27 - 4.20 mcIU/mL [facility] Blood specimen (specimen) Venous Draw / Unknown 01/22/2016 3:06 PM EDT 01/22/2016 3:11 PM EDT Narrative Resulting Agency Comment Spec In Lab Raulito Posada MD CHEMISTRY ORDERABLES Performing Organization Address City/[facility] Co de Phone Number [facility] [place] [address] * HCV Genotype (01/22/2016 1:09 PM EDT) [...] of HCV genotype was carried out using Besstech-8 detection system. Method: Plasma was initially subjected to quantitative RT-PCR using the Rigoberto LAZARA Ampliprep/LAZARA Taqman HCV assay. The HCV genotyping was carried out using Besstech-8 detection system that targets 5? -untranslated region of the HCV genome. The amplicon from the Rigoberto assay served as a template for the nested PCR followed by a direct analysis on the electrochemical DAXKO XT-8 detection system for the identification of HCV genotypes. The genotypes/subtypes detected by this method include 1a, 1b, 2a/c, 2b, 3, 4, 5 and 6a/b. This test was validated and its performance characteristics determined by the Molecular Pathology Laboratory at [facility]. It has not been cleared or approved [...] 5, and 6. Clin Gastroenterol Hepatol. 2005; 3:U70-A873. Green JS, Aspinall E, Neil D, Foley AJ, Kayla ME. Current and emerging antiviral treatments for hepatitis C infection. Br J Clin Pharmacol. 2012 Feb 13. [Epub ahead of print] [facility] Comment: [VERIFIED DATE]01.28.16 Verified By:Sabi Ayon (Electronic Signature) Blood specimen (specimen) Venous Draw / Unknown 01/22/2016 1:09 PM EDT 01/27/2016 8:16 AM EDT Narrative Resulting Agency Comment Spec In Lab Raulito Posada MD HEMATOLOGY ORDERABLE S [facility] [place] [address] * Hepatitis C RNA, quantitative, PCR (01/22/2016 1:09 PM EDT) HCV Viral Load 866,464 IU/mL [facility] HCV Viral Load Result: [id number] IU/mL Indication for Study: Hepatitis C Infection Analysis: A quantitiative real time reverse transcriptase PCR assay was performed on extracted viral RNA for the purpose of quantification. Sample: plasma (1 mL minimum volume) Method: Rigoberto Lazara TaqMAN 48 HCV Linear Range: 15 IU/mL - 100,000,000IU/mL (95% CI) Note: This assay is being performed in the [facility] Molecular Pathology Laboratory. Richard Parsons, Ph.D. Director, Molecular Pathology [facility] Comment: [VERIFIED DATE]01.28.16 Verified By:Sabi Ayon (Electronic Signature) Blood specimen (specimen) Venous Draw / Unknown 01/22/2016 1:09 PM EDT 01/27/2016 8:16 AM EDT Narrative Resulting Agency Comment Spec In Lab Raulito Posada [place] [address] documented in this encounter Visit Diagnoses Not on filedocumented in this encounter Care Teams Chart Changer Relationship Specialty Start Date End Date Tito Fisher MD [address] [place] [address] PCP - General Family Medicine 12/09/15 06/27/16 documented as of this encounter
--- OUTSIDE RECORDS SUMMARY | 2024-07-06 00:51 | XMS_ITS | Encounter Summary ---
Author Organization [place] [address] Care Team Providers Care Eyelet Riveter Name Role Phone Tito Fisher MD Primary Care Provider [phone] Encounter Details Date Type Department Care Team (Latest Contact Info) Description 02/13/2016 [place] [address] Laura Pickering MD [address] [place], [place] [address] Bipolar I disorder, most recent episode (or [...] behavior documented in this encounter Care Teams Eyelet Riveter Relationship Specialty Start Date End Date Tito Fisher MD [address] [place], [place] [address] PCP - General Family Medicine 12/09/15 06/27/16 documented as of this encounter
--- OUTSIDE RECORDS SUMMARY | 2024-07-06 00:51 | XMS_ITS | Encounter Summary ---
Author Organization [facility] Address [address] [place] [address] Care Team Providers Care Gallery Or Museum Attendant Name Role Phone Laura Ho MD Primary Care Provider [phone] Encounter Details Date Type Department Care Team (Latest Contact Info) Description 04/03/[address] [facility] [address] [place], [place] [phone] Clara Carpenter RPH Refill Coordination Outreach for [...] on filedocumented in this encounter Care Teams Gallery Or Museum Attendant Relationship Specialty Start Date End Date Laura Ho MD [address] [place] [address] PCP - General 12/25/19 documented as of this encounter
--- OUTSIDE RECORDS SUMMARY | 2024-07-06 00:51 | XMS_ITS | Encounter Summary ---
Author Organization [facility] [place] [address] Care Team Providers Care Box Toe Stitcher Name Role Phone Tito Fisher MD Primary Care Provider [phone] Encounter Details Date Type Department Care Team (Late st Contact Info) Description 01/23/2016 Transcribe [place] [phone] Raulito Posada MD [address] [place], [place] [address] Social History Tobacco Use Types Packs/Day Years [...] on filedocumented in this encounter Care Teams Box Toe Stitcher Relationship Specialty Start Date End Date Tito Fisher MD [address] [place] [address] PCP - General Family Medicine 12/09/15 06/27/16 documented as of this encounter
--- OUTSIDE RECORDS SUMMARY | 2024-07-06 00:51 | XMS_ITS | Encounter Summary ---
Author Organization [facility] Address [address] [place] [address] Care Team Providers Care Right Of Way Manager Name Role Phone Unknown, Provider MD Primary Care Provider Unava ilable Reason for Visit * (Routine) - Receiving Office to Obtain Authorization Specialty Diagnoses / Procedures Referred By Govind townsend Referred To Contact Procedures XR OUTSIDE IMAGES MSK Unknown, Provider, Referral ID Status Reason Start Date Expiration Date Visits Requested Visits Authorized [id number] Receiving Office to Obtain Authorization 08/22/2019 1 1 Encounter Details Date Type Department Care Team (Latest Contact Info) Description 08/08/2019 - 08/08/2019 23:59 EST Hospital Encounter [facility] Radiology - Main [place] [address] [place] [address] Discharge Disposition: Home or Self Care Social [...] IMAGING ORDERABLES Final Result Performing Organization Address City/State/[facility] Co sd Phone Number [facility] documented in this encounter Visit Diagnoses Not on filedocumented in this encounter Care Teams Right Of Way Manager Relationship Specialty Start Date End Date Unknown, Provider, PCP - General 10/07/14 12/24/19 documented as of this encounter
--- OUTSIDE RECORDS SUMMARY | 2024-07-06 00:51 | XMS_ITS | Encounter Summary ---
Author Organization [facility] Address [address] [place] [address] Care Team Providers Care Wood Strip Block Floor Installer Name Role Phone Laura Ho MD Primary Care Provider [phone] Encounter Details Date Type Department Care Team (Late st Contact Info) Description 04/17/2024 Specialty Pharmacy [facility] [address] [place], [place] [phone] Clara Carpenter [facility] Social History Tobacco Use Types Packs/Day [...] this encounter Progress Notes * Blanca Perales, [facility] - 04/17/2024 1644 EDT Harvey Espinosa is a 44 y.o. male with OUD who was prescribed Brixadi, which was filled by [facility]. This patient will be discharged from [facility] services because medication therapy was discontinued. Thank you for allowing us to care for this patient. Blanca Perales, PharmD, [facility] Pharmacist Ambulatory Clinician 04/24/2024 documented in this [...] documented as of this encounter Care Teams Wood Strip Block Floor Installer Relationship Specialty Start Date End Date Laura Ho MD [address] [place] [address] PCP - General 12/25/19 documented as of this encounter
--- OUTSIDE RECORDS SUMMARY | 2024-07-06 00:51 | XMS_ITS | Encounter Summary ---
Author Organization [facility] Address [address] [place] [address] Care Team Providers Care Outside Contractor Sales Name Role Phone Unavailable Primary Care Provider Unavailabl e Encounter Details Date Type Department Care Team (Latest Contact Info) Description 10/05/2014 22:59 EDT - 10/05/2014 23:59 EDT Hospital Encounter [facility] [address] [place] [address] Unknown, Provider, MD Discharge Disposition: Home or [...] Code Departure Means Destination Home or Self Senior Care documented in this encounter Plan of Treatment Not on file documented as of this encounter Visit Diagnoses Not on filedocumented in this encounter
--- OUTSIDE RECORDS SUMMARY | 2024-07-06 00:51 | XMS_ITS | Encounter Summary ---
Author Organization [facility] Address [address] [place] [address] Care Team Providers Care Tax Associate Name Role Phone Unknown, Provider MD Primary Care Provider Unava ilable Reason for Visit * (Routine) - Receiving Office to Obtain Authorization Specialty Diagnoses / Procedures Referred By Govind townsend Referred To Contact Procedures MR OUTSIDE IMAGES MSK Unknown, Provider, Referral ID Status Reason Start Date Expiration Date Visits Requested Visits Authorized [id number] Receiving Office to Obtain Authorization 08/22/2019 1 1 Encounter Details Date Type Department Care Team (Latest Contact Info) Description 08/15/2019 - 08/15/2019 23:59 EST Hospital Encounter [facility] Radiology - Main [place] [address] [place] [address] Discharge Disposition: Home or Self Care Social [...] ORDERABLES Final Result Performing Organization Address City/State/[facility] Co ok Phone Number [facility] documented in this encounter Visit Diagnoses Not on filedocumented in this encounter Care Teams Tax Associate Relationship Specialty Start Date End Date Unknown, Provider, PCP - General 10/07/14 12/24/19 documented as of this encounter
--- OUTSIDE RECORDS SUMMARY | 2024-07-06 00:51 | XMS_ITS | Clinical Summary ---
Author Organization [facility] Address [address] [place] [address] Care Team Providers Care Councillor Aboriginal Land Council Name Role Phone Laura Ho MD Primary Care Provider [phone] Allergies Active Allergy Reactions Criticality Noted Date [...] Encounters Date Type Department Care Team Description 06/22/2024 Lab Requisition [facility] Pathology & Laboratory Medicine [address] [address] Outr Resulting Lab, Provider 06/22/2024 Lab Requisition [facility] Pathology & Laboratory [address] [address] Outr Resulting Lab, Provider 04/17/2024 Specialty Pharmacy [facility] [address] [place] [address] Clara Carpenter RPH from Last 3 Months Medical History Medical [...] - 19+ 3-dose series) 02/24 COVID-19 Vaccine ( season) 2024 Hepatitis C Screen Completed 09/04/2019 Procedures Procedure Name Priority Date/Time Associated Diagnosis Comments XYLAZINE CONFIRMATION, U Routine 06/21/2024 15:15 EST FENTANYL SCREEN WITH REFLEX TO CONFIRMATION, U Routine 06/21/2024 15:15 EST HCV RNA DETECT QUANT Routine 09/04/2019 15:57 EST from Last 3 Months or Most Recently Relevant to Health Maintenance Results * XYLAZINE CONFIRMATION, U (06/21/2024 15:15 EST) Xylazine Confirmation Negative <50 ng/mL 06/26/2024 9:47 EST [facility] Urine URINE / Unknown 06/21/2024 1 5:15 EST 06/22/2024 17:23 EST Narrative [facility] - 06/26/2024 9:47 EST Testing performed by: [facility] [address] [place] [address], [facility] [address] [address] Museum Director: Tavares Cramer MD; CLIA # [id number] us Provider Outr Resulting Lab GEN LAB UNIT COLLECT ORDERABLES Final Result [facility] [address] [place] [address], [facility] [address] [phone] * FENTANYL SCREEN WITH REFLEX TO CONFIRMATION, U (06/21/2024 15:15 EST) Pathologist [facility] Fentanyl Screen with Reflex to Confirmation, U Negative <1 ng/mL 06/25/2024 10:13 EST [facility] Urine URINE / Unknown 06/21/2024 1 5:15 EST 06/22/2024 17:23 EST Narrative [facility] - 06/25/2024 10:13 EST Testing performed by: [facility] [address] [place] [address], [facility] [address] [address] Museum Director: Tavares Cramer MD; CLIA # [id number] us Provider Outr Resulting Lab URINALYSIS ORDERABLE S Final Result [facility] [address] [place] [address] * HCV RNA DETECT QUANT (09/04/2019 15:57 EST) Pathologist [facility] HCV RNA Quantitative Undetected Undetected IU/mL 09/05/2019 22:50 EST [facility] Comment: Result in log IU/mL is Undetected. ADDITIONAL INFORMATION The quantification range of this assay is 15 to 100,000,000 IU/mL (1.18 log to 8.00 log IU/mL). Testing was performed using the elke HCV test (Rigoberto [employer] with the elke 6800 System. Test Performed by: [facility] [place] [address] [place] [address] Museum Director: Jorge Luis Andre M.D. Ph.D.; CLIA# [id number] 09/04/2019 15:5 7 EST 09/04/2019 15:57 EST Narrative [facility] - 09/05/2019 22:50 EST Does PT Have a Latex Allergy? NO Arian Charles MD CHEMISTRY & BLOOD GAS ORDERAB LES Final Result [facility] from Last 3 Months or Most Recently Relevant to Health Maintenance Insurance [place]ICAID [place] [facility] Address: [address] [address] [place] Care Teams Councillor Aboriginal Land Council Relationship Specialty Start Date End Date Laura Ho MD [address] [place] [phone] PCP - General 12/25/19
--- OUTSIDE RECORDS SUMMARY | 2024-07-06 00:51 | XMS_ITS | Encounter Summary ---
Author Organization [facility] Address [address] [place] [address] Care Team Providers Care Transfer Clerk Name Role Phone Laura Ho MD Primary Care Provider Encounter Details Date Type Department Care Team (Latest Contact Info) Description 02/06/2024 Specialty Pharmacy [facility] [address] [place], [place] [phone] Clara Carpenter RPH Shipping Modification for Addiction [...] on filedocumented in this encounter Care Teams Transfer Clerk Relationship Specialty Start Date End Date Laura Ho MD [address] [place] [phone] PCP - General 12/25/19 documented as of this encounter
--- OUTSIDE RECORDS SUMMARY | 2024-07-06 00:51 | XMS_ITS | Encounter Summary ---
Author Organization [facility] Address [address] [place] [address] Care Team Providers Care Sulfuric Acid Plant Operator Name Role Phone Unknown, Provider Primary Care Provider Laura Preciado MD Primary Care Provider Scarlett Wyman Unavailable [phone] Encounter Details Date Type Department Care Team (Late st Contact Info) Description 09/14/2019 Results Only Imaging [facility] Radiology Results [address] [place], [place] [address] Arian Charles MD Social History Tobacco Use [...] CC: ? Transcribed Date/Time: 09/14/2019 (0755) ? Diet Kitchen Cook: ? Printed Date/Time: 09/14/2019 (0756) ? PAGE [...] Cheema MD CC: Transcribed Date/Time: 09/14/2019 (0755) Diet Kitchen Cook: Printed Date/Time: 09/14/2019 (0756) PAGE 2 Signed Report Arian Charles MD [facility] ORDERABLES Final Resul t documented in this encounter Visit Diagnoses Not on filedocumented in this encounter Care Teams Sulfuric Acid Plant Operator Relationship Specialty Start Date End Date Unknown, Robert, PCP - General 10/07/14 12/24/19 Laura Ho MD [address] [place] [address] PCP - General 12/25/19 Scarlett Wyman [address] [address] Material Coordinator Behavioral Care 12/04/21 03/09/23 documented as of this encounter
--- OUTSIDE RECORDS SUMMARY | 2024-07-06 00:51 | XMS_ITS | Encounter Summary ---
Author Organization [facility] Address [address] [place] [address] Care Team Providers Care Poultry Hatchery Laborer Name Role Phone Laura Ho MD Primary Care Provider [phone] Encounter Details Date Type Department Care Team (Late st Contact Info) Description 06/22/2024 Lab Requisition [facility] Pathology & Laboratory Medicine - [facility] [address] [place] [address] Outr Resulting Lab, Provider Social History Tobacco Use Types Packs/Day Years [...] XYLAZINE CONFIRMATION, U Routine 06/21/2024 15:15 EST documented in this encounter Results * XYLAZINE CONFIRMATION, U (06/21/2024 15:15 EST) Xylazine Confirmation Negative <50 ng/mL 06/26/2024 9:47 EST [facility] Urine URINE / Unknown 06/21/2024 1 5:15 EST 06/22/2024 17:23 EST Narrative [facility] - 06/26/2024 9:47 EST Testing performed by: [facility] [address] [place] [address], [facility] [address], [place] [address] Tutoring Clinician: Tavares Cramer MD; CLIA # [id number] us Provider Outr Resulting Lab GEN LAB UNIT COLLECT ORDERABLES Final Result Performing Organization Address City/State/[facility] Co de Phone Number [facility] [address] [place] [address], [facility] [address] [phone] documented in this encounter Visit Diagnoses Not on filedocumented in this encounter Care Teams Poultry Hatchery Laborer Relationship Specialty Start Date End Date Laura oH MD [address] [place] [address] PCP - General 12/25/19 documented as of this encounter
--- OUTSIDE RECORDS SUMMARY | 2024-07-06 00:51 | XMS_ITS | Encounter Summary ---
Author Organization [facility] Address [address] [place] [address] Care Team Providers Care Sports Development Officer Name Role Phone Laura Ho MD Primary Care Provider [phone] Encounter Details Date Type Department Care Team (Latest Contact Info) Description 01/11/2024 Specialty Pharmacy [facility] Specialty [facility] [address] [place], [place] [phone] Clara Carpenter RPH Refill Coordination Outreach for [...] on filedocumented in this encounter Care Teams Sports Development Officer Relationship Specialty Start Date End Date Laura Ho MD [address] [place] [address] PCP - General 12/25/19 documented as of this encounter
--- OUTSIDE RECORDS SUMMARY | 2024-07-06 00:51 | XMS_ITS | Encounter Summary ---
Author Organization [facility] Address [address] [place] [id number] Care Team Providers Care Hog Cooler Name Role Phone Unknown, Provider Primary Care Provider Unava ilable Encounter Details Date Type Department Care Team (Late st Contact Info) Description 01/05/2017 Historical Results Only [facility] [place] [address] Arian Charles MD Social History Tobacco Use [...] Ab, Total Negative NEGAT 01/08/2017 16:45 EDT [facility] Comment: New methodology in use 10/26/16. Test Performed by: [place] [address] Program Architect: Santos Ram MD , Ph D 01/05/2017 8:48 EDT 01/05/2017 8:48 EDT Narrative [facility] - 01/08/2017 16:45 EDT Does PT Have a Latex Allergy? NO us Arian Charles MD CHEMISTRY & BLOOD GAS ORDERAB LES Final Result Performing Organization Address City/State/[facility] Co de Phone Number [facility] documented in this encounter Visit Diagnoses Not on filedocumented in this encounter Care Teams Hog Cooler Relationship Specialty Start Date End Date Unknown, Provider, PCP - General 10/07/14 12/24/19 documented as of this encounter
--- OUTSIDE RECORDS SUMMARY | 2024-07-06 00:51 | XMS_ITS | Encounter Summary ---
Author Organization [facility] Address [address] [place] [address] Care Team Providers Care Charge Operator Name Role Phone Unknown, Provider Primary Care Provider Unava ilable Encounter Details Date Type Department Care Team (Late st Contact Info) Description 04/28/2015 Historical Results Only [facility] Radiology Results [address] [place], [place] [id number] Mahendra Meyer [address] [place] [id number] Social History Tobacco Use Types Packs/Day Years [...] CC: ? Transcribed Date/Time: 04/28/2015 (1253) ? Rig Site Engineer: ? Printed Date/Time: 12/19/2018 (1139) ? PAGE [...] Hermilo Arevalo MD CC: Transcribed Date/Time: 04/28/2015 (5522) Rig Site Engineer: Printed Date/Time: 12/19/2018 (7364) PAGE 1 Signed Report Mahendra [facility] ORDERABLE S Final Result documented in this encounter Visit Diagnoses Not on filedocumented in this encounter Care Teams Charge Operator Relationship Specialty Start Date End Date Unknown, Provider, PCP - General 10/07/14 12/24/19 documented as of this encounter
--- OUTSIDE RECORDS SUMMARY | 2024-07-06 00:51 | XMS_ITS ---
Author Organization [facility] Address [address] [place] [address] Care Team Providers Care Belt Builder Helper Name Role Phone Laura Ho MD Primary Care Provider [phone] Addiction Medicine Status:Discharged (Closed) Start date:10/20/2023 Enrollment date:10/20/2023 End date:04/24/2024 Close reason:Therapy discontinued - patient choice Linked medications:buprenorphine (Discontinued) Linked problems:Opioid use disorder (Active) Overview [facility]: [phone] Continued Care and Services Coordination
--- OUTSIDE RECORDS SUMMARY | 2024-07-06 00:51 | XMS_ITS | Encounter Summary ---
Author Organization [facility] Address [address] [place] [address] Care Team Providers Care Deputy Clerk Of [address] Name Role Phone Unknown, Provider Primary Care Provider Unava ilable Encounter Details Date Type Department Care Team (Late st Contact Info) Description 02/21/2019 Historical Results Only [facility] - Main [address] [id number] Arian Charles MD Social History Tobacco Use [...] Diagnosis Comments HEPATITIS C DIAG PROGRESSIVE - [facility] Routine 02/21/2019 13:57 EDT PROTIME Routine 02/21/2019 13:57 EDT PROTIME Routine 02/21/2019 13:57 EDT documented in this encounter Results * PROTIME (02/21/2019 13:57 EDT) Pathologist [facility] PROTHROMBIN TIME - [facility] 10.8 10.3 - 13.4 SECONDS 02/21/2019 15:26 EDT [facility] 02/21/2019 13:5 7 EDT 02/21/2019 14:05 EDT Narrative [facility] - 03/27/2019 16:21 EDT Does PT Have a Latex Allergy? NO us Arian Charles MD HEMATOLOGY & PF4 ORDERABLES F inal Result Performing Organization Address [facility]/ZIP Co de Phone Number [facility] * PROTIME (02/21/2019 13:57 EDT) [facility] INR [facility] 1.0 0.9 - 1.1 02/21/2019 15:26 EDT [facility] Comment: Moderate Intensity Coumadin INR = 2.0-3.0 Adjustments in anticoagulant therapy dose should be based upon the INR and NOT the Protime. 02/21/2019 13:5 7 EDT 02/21/2019 14:05 EDT Narrative [facility] - 03/27/2019 16:21 EDT Does PT Have a Latex Allergy? NO Arian Charles MD HEMATOLOGY & PF4 ORDERABLES F inal Result Performing Organization Address [facility] Co de Phone Number [facility] * HEPATITIS C DIAG PROGRESSIVE [facility] (02/21/2019 13:57 EDT) [facility] HEP C RNA BY [facility] [id number] Undetected IU/mL 02/26/2019 20:02 EDT [facility] Comment: Result in log IU/mL is 6.01. ADDITIONAL INFORMATION The quantification range of this assay is 15 to 100,000,000 IU/mL (1.18 log to 8.00 log IU/mL). Testing was performed using the elke HCV test ([employer] with the elke [id number] System. Test Performed by: [facility] [address] [place] [address] [facility] 6.01 02/23/2019 15:49 EDT [facility] 02/21/2019 13:5 7 EDT 02/21/2019 14:05 EDT Narrative [facility] - 02/26/2019 20:02 EDT HEP C GT REFLEXED 02-23-19 us Arian Charles MD CHEMISTRY & BLOOD GAS ORDERAB LES Final Result [facility] documented in this encounter Visit Diagnoses Not on filedocumented in this encounter Care Teams Deputy Clerk Of [address] Relationship Specialty Start Date End Date Unknown, Provider, PCP - General 10/07/14 12/24/19 documented as of this encounter
--- OUTSIDE RECORDS SUMMARY | 2024-07-06 00:51 | XMS_ITS | Encounter Summary ---
Author Organization [facility] Address [facility] [address] [place] [address] Care Team Providers Care Pharmacovigilance Scientist Name Role Phone Tito Fisher MD Primary Care Provider [phone] Encounter Details Date Type Department Care Team (Late st Contact Info) Description 12/29/2015 Telephone [place] [address] Crystal Rosales APRN [facility] [place] [address] Social History Tobacco Use Types Packs/Day Years [...] on filedocumented in this encounter Care Teams Pharmacovigilance Scientist Relationship Specialty Start Date End Date Tito Fisher MD [address] [place] [address] PCP - General Family Medicine 12/09/15 06/27/16 documented as of this encounter
--- OUTSIDE RECORDS SUMMARY | 2024-07-06 00:51 | XMS_ITS | Encounter Summary ---
Author Organization [facility] Address [facility] [place] [address] Care Team Providers Care Ramp Agent Name Role Phone Butch Fisher MD Primary Care Provider [phone] Reason for Visit * Reason Comments Other hand infection * Auth/Cert Specialty Diagnoses / Procedures Referred By Contac t Referred To Contact Diagnoses Cellulitis of hand Injury, superficial, hand with infection, right, initial encounter Procedures EMERGENCY ADMIT Referral ID Status Reason Start Date Expiration Date Visits Re quested Visits Authorized [id number] 1 1 Encounter Details Date Type Department Care Team (Latest Contact Info) Description 12/09/2015 12:12 PM EDT - 12/11/2015 2:00 PM EDT Hospital Encounter [address] [place] [phone] Kd Duvall MD [facility] [place] [address] Cellulitis of hand (Primary Dx) Discharge Disposition: [...] did not improve so he came to [facility]. He denies numbness, tingling, and weakness of [...] about scheduling, please contact our administrative officesat [phone] For clinical questions, please call our nurses at [phone] Both offices are open Tuesday thru Tuesday 8a - 5p. With emergencies after hours, call the hospital forming roll operator at [phone] and ask for the Plastic Surgery Resident production boring machine operator. Follow-up plan: VNA: No discharge procedures on file. General Instructions Substance Use Counseling Eric GrajedaLYLY, LDAC [address] [place], [place] [address] Additional Location [address] [place], [place] [address] [email or web address] PHILLIP RANDALL DO 12/11/2015 documented in this encounter Discharge Instructions * Discharge Instructions* Gonzales Wolfe RN - 12/11/2015 12:20 PM EDT Substance Use Counseling Eric GrajedaLYLY, [facility] [address] [place], [place] [address] Additional Location [address] [place], [place] [address] [email or web address] * Patient Instructions* Phillip Randall DO - [...] about scheduling, please contact our administrative officesat [phone] For clinical questions, please call our nurses at [phone] Both offices are open Tuesday thru Tuesday 8a - 5p. With emergencies after hours, call the hospital forming roll operator at [phone] and ask for the Plastic Surgery Resident production boring machine operator. documented in this encounter Medications at Time [...] -Culture from left 4th finger abscess from [facility] was in 2014 and was Streptococcus milleri [...] to follow. Please don't hesitate to page [phone] with questions or concerns. X ID consult service will sign off. Of course if clinical changes occur or new questions arise do not hesitate to contact us on pager [phone]. MAXIMILIANO LIN MD Fellow, Infectious Disease 12/11/2015 Pager [phone] ID Staff: Discussed with Dr. Lin and agree with recommendations above. Tala Obregon MD * afia Ramirez Rn, Kelly Plasencia RN - 12/11/2015 5:33 AM EDT Able to visualize catheter in basilic vein with ultrasound. No sxs of infiltrate w/40 cc flush. 100cc gravity freeflow. Arm circumference 30.5 cm above site. * Radha Chicas RN - 12/10/2015 10:10 PM EDT Patient arrived [facility] via bed from ED s/p right hand cellulitis. Patient AOx4, HR regular, lungsounds clear, positive bs, LBM 12/09/15, voiding clear yellow urine. +csmt to all extremities. Pain 6/10 at this time. Patient oriented to room, call armendariz to bedside, please see flowsheet for full assessment. Will continue to monitor. * Adriana Jordan RN - 12/10/2015 4:42 PM EDT Office of Care Management nanofabrication specialist Adriana Jordan (pager [phone]) Patient: Kevin Ramirez : 1980 (35 y.o.) Home: [facility] [address] LOS: 0 days Patient has been admitted inpatient for treatment for right hand cellulitis. Reviewed record and interviewed patient. Introduced nanofabrication specialist role. 12/10/15 1235 Living Environment Lives With significant other;child(blayne), dependent [...] Outpatient/Agency/Support Group Needs outpatient substance abuse treatment (NETWORK SYSTEMS ANALYST referral made to assess readiness for substance abuse treatment and offer resources.) Anticipated Changes Related to Illness none Anticipated Discharge Disposition home Current Health Comment Patient has history of IV drug use and is therefore an unlikely candidate for home IV ABX infusion therapy. Insurance coverage: [place] Medicaid Advance directives: No. Does not wish to discuss at this time. PCP: BUTCH FISHER MD, Patient Active Problem List Diagnosis Code ??? Cellulitis of hand L03.119 ??? Injury, superficial, hand with infection S60.929A, L08.9 Care Management will continue to monitor progress, follow for continuity of care, and assist with discharge planning. * Holley Ch, PERIANESTHESIA NURSE - 12/09/2015 10:38 PM EDT CLINICAL DECISION [...] PM EDT Patient has been seen by social work case manager COCO Wright. His left hand is noted [...] with Holley Ch. Radha Michael MD 12/10/15 2201 Radha Michael MD 12/30/15 0296 * Luz Miller RN - 12/10/2015 2:45 [...] asked to see this patient by Holley Ch to assist with medical decision making regarding [...] 1:08 PM EDT Pt to [facility] from [facility], transported by RT. * Antonette Saeed RN [...] RN - 12/09/2015 12:39 PM EDT Holley SUPERVISOR PACKING ROOM at bedside for evaluation. * Antonette Saeed RN - 12/09/2015 12:23 PM EDT ED SUPERVISOR PACKING ROOM student at bedside for evaluation. documented in this encounter Miscellaneous Notes * Consult Note - Gonzales Wolfe RN - 12/11/2015 12:10 PM EDT Behavioral Intervention Team Note Motivational Interview for substance Use Met with patient and Dr. Roach for psychiatry consult per primary team request-see Dr. Roach's note. Patient's EMR reviewed. 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 Gonzales López RN BIT pager #[phone] * Consult Note - Maulik Roach - [...] reports that he started using suboxone in retirement. He denies prominent use of other opiates. [...] -Once, at age 10 yrs old, [place], [place]. I said I was suicidal so they [...] mL 1.5 g Intravenous Q12H Holley Ch PERIANESTHESIA NURSE 1,500 mg at 12/11/15 0452 ??? lamoTRIgine (LaMICtal) tablet 25 mg 25 mg Oral Daily Holley Ch PERIANESTHESIA NURSE 25 mg at 12/11/15 0818 ??? ibuprofen (ADVIL;MOTRIN) tablet 800 mg 800 mg Oral Q8H PRN Holley Ch PERIANESTHESIA NURSE 800 mg at 12/10/15 2200 ??? traZODone (DESYREL) tablet 50 mg 50 mg Oral Nightly Holley Ch PERIANESTHESIA NURSE 50 mg at 12/10/15 2314 Medical Review of Systems: Constitutional: Feeling better Cardiovascular: Denies chest pain Respiratory:: Denies dyspnea GI: N/V. Some diarrhea. Musculoskeletal: Denies pain Integumentary: Cellulitis Neurological: No tremors Hematologic/Lymphatic: Denies Allergic/Immunologic: Psychiatric: See above Social History: -Lives in [place], [place] -[place] - Lives with partner of 15 yrs and their child. Has two children from other relationships. -Currently unemployed, has worked in [employer]/Psychiatric History: (mental illness, substance use, [...] conversation Memory: Able to recall recent and intermediate events during conversation. Language: No unusual or [...] his report, he started using suboxone in assisted, and does not have a prominent history [...] consistent with a primary psychotic disorder. Diagnosis: Edison I : Opiate use disorder, Stimulant use disorder, Stimulant Induced Psychosis By history - ADHD, Bipolar disorder Edison II : Deferred Edison III : Cellulitis Edison IV : Hx of trauma Edison V : current GAF 50 Plan/Recommendations: -Per [...] individual therapy Recommendations were communicated to primary production team member (Jaron, surgery resident) Coding Determination Complexity of [...] CPT CODE PF PF Straightforward 3200 / 21747 EPF EPF Straightforward 3210 / 78607 D D Low 3220 / 08127 C C Moderate 3230 / 30964 x C x C High x 3240 / 24648 Associated attestation - Chico Salas MD - 12/13/2015 10:48 PM EDT Psychiatry Attending Note I discussed this patient's situation with the resident but did not see the patient. I contributed to the formulation and treatment planning as documented in the resident's note. Pt was discharged before I could see him. Chico Salas MD Psychiatry Consultation Pager: [phone] * Plan of Care - Radha Chicas [...] NOTE Reason for Consult: Hand infection, antibiotic land management forester Service: Plastic Surgery Consulting Attending: Dr. Duvall [...] has been through treatment multiple times in [facility]. He has been tested for hepatitis C and HIV but remotely (negative per him), and in retirement (lastin retirement 6 years ago). His significant other notes [...] ago (he was uncertain,1-6 months ago?) at [facility]. He also had an injection site infection [...] Do not hesitate to page us at [phone] with any further questions or concerns. ID will sign off. Please page [phone] if further consultation required. MAXIMILIANO LIN MD Fellow, Infectious Disease 12/10/2015 Pager [phone] ID Staff: I saw and examined the [...] inpt psych stay and to assist with acute care clinical nurse specialist plan for mental health and addiction. HCV [...] did not improve so he came to [facility]. He denies numbness, tingling, and weakness of [...] hand did not improve so hecame to [facility]. He denies numbness, tingling, and weakness of [...] and warm.He was eval for this @ [facility] yesterday and Rx with Clindamycin and Bactrim [...] 3:20 PM EDT HIV SCREEN, 4TH GENERATION ([facility]/CGP/APD/NLH) Routine 12/09/2015 3:20 PM EDT HEPATIC FUNCTION [...] AM EDT) Vancomycin, Trough 5.9 mg/L [facility] Comment: Therapeutic range for [...] In Lab Kd Duvall MD CHEMISTRY ORDERABLES [facility] [place] [address] * US Extremity Right Limited (12/09/2015 3:57 [...] 05:33 pm) Patient Info ID #: ? [id number] ?: ??[birth year] (35 yrs) Name: ? KEVIN DE LA CRUZCHAY ?Visit Date: 12/09/2015 03:56 pm Performed By Performed By: ? Clarissa KAPOORIA, ??Jill Attending: ?Marilynn MURILLO, Alison Flynn Associate: ?Kathleen MURILLO, Kassandra Sawant Referred By: ?ANGELIA SCHNEIDER MD Service(s) Provided ??UEXTLIMR - Ultrasound Extremity Limited - Right - ? 55814 ??[id number] Indications ??diffuse swelling with pain to radial side of the ??right wrist s/p IV drug use. ??Please evaluate ??for abscess Comparison No prior studies for comparison. -------- Findings -------- Title: ? Ultrasound Report Findings: ?No evidence of foreign body, fluid collection, ?subcutaneous edema or abscess. Procedure Note Alison Mehta MD - 12/09/2015 Ultrasound Report (Signed Final 12/09/2015 05:33 pm) Patient Info ID #: [id number] : [birth year] (35 yrs) Name: KEVIN RAMIREZ Visit Date: 12/09/2015 03:56 pm Performed By Performed By: Jill Romo RDMS Attending: Alison Subramanian MD Associate: Kassandra Wang MD Referred By: ANGELIA SCHNEIDER MD Service(s) Provided UEXTLIMR - Ultrasound Extremity Limited - Right - 50225 [id number] Indications diffuse swelling with pain to radial [...] Report 12/09/2015 05:33 pm Angelia Schneider MD [facility] GEN ORDERABL ES * Hepatitis C RNA, quantitative, PCR (12/09/2015 3:20 PM EDT) [facility] HCV Viral Load 759,992 IU/mL [facility] HCV Viral Load Result: [id number] IU/mL Indication for Study: Hepatitis C Infection Analysis: A quantitiative real time reverse transcriptase PCR assay was performed on extracted viral RNA for the purpose of quantification. Sample: plasma (1 mL minimum volume) Method: Rigoberto Lazara TaqMAN 48 HCV Linear Range: 15 IU/mL - 100,000,000IU/mL (95% CI) Note: This assay is being performed in the [facility] Molecular Pathology Laboratory. Richard Parsons, Ph.D. Director, Molecular Pathology [facility] Comment: [VERIFIED DATE]12.12.15 Verified By:Rachel Mckeon (Electronic Signature) Blood specimen (specimen) 12/09/2015 3:20 PM EDT 12/11/2015 10:57 AM EDT Narrative Resulting Agency Comment Spec In Lab Kd Duvall MD MOLECULAR ORDERABLES [facility] [place] [address] * Hepatic Function Panel (12/09/2015 3:20 PM EDT) Pathologist [facility] Protein, Total 7.2 6.1 - 8.0 gm/dL [facility] Albumin 3.9 3.2 - 5.2 gm/dL [facility] Aspartate Aminotransferase 27 0 - 39 unit/L [facility] Alanine Aminotransferase 55 0 - 55 unit/L [facility] Alkaline Phosphatase 62 40 - 120 unit/L [facility] Bilirubin, Total 0.2 0.2 - 1.3 mg/dL [facility] Bilirubin, Direct <0.1 0.0 - 0.3 mg/dL [facility] Blood specimen (specimen) 12/09/2015 3:20 PM EDT 12/09/2015 3:32 PM EDT Narrative Resulting Agency Comment Spec In Lab Angelia Schneider MD CHEMISTRY ORDERABLE S Performing Organization Address [facility] Co de Phone Number [facility] [place] [address] * HIV Screen, 4th Generation (12/09/2015 3:20 PM EDT) HIV Ab/Ag Screen Negative Negative [facility] Comment: This 4th Generation HIV [...] MD CHEMISTRY ORDERABLE S Performing Organization Address [facility] Co de Phone Number [facility] [place] [place] [address] * XR wrist complete minimum 3 views [...] 12:40 PM EDT) Neutrophil % 65.9 % [facility] Neutrophil Absolute 7.94(H) 1.50 - 6.30 x10(3)/mc L [facility] Lymph % 21.1 % [facility] Lymphocytes Abs 2.5 1.0 - 3.6 x10(3)/mc L [facility] Monocyte % 8.2 % [facility] Monocyte Abs 1.0 0.2 - 1.0 x10(3)/mc L [facility] Eos % 3.9 % [facility] Eosinophils Abs 0.5 0.0 - 0.5 x10(3)/mc L [facility] Basophil % 0.7 % [facility] Baso Absolute 0.1 0.0 - 0.2 x10(3)/mc L [facility] Immature Gran % 0.20 % [facility] Comment: Immature granulocytes(IG's)percentage and absolute count will include metamyelocytes, myelocytes, and promyelocytes. Blood smears from CBCs yielding IG's will be scanned manually for concordance. If this scan disagrees with the automated IG or if promyelocytes are noted, a manual differential will be performed. Immature Gran Absolute 0.03 0.00 - 0.05 x10(3)/mc L [facility] Blood specimen (specimen) 12/09/2015 12:40 PM EDT 12/09/2015 12:57 PM EDT Narrative Resulting Agency Comment Spec In Lab Angelia Schneider MD HEMATOLOGY ORDERABL ES [facility] [place] [address] * (ABNORMAL) Hemogram (12/09/2015 12:40 PM EDT) White Blood Cell 12.0(H) 4.0 - 10.0 x10(3)/[facility] Red Blood Cell 5.04 4.63 - 6.08 x10(6)/[facility] Hemoglobin 15.1 13.7 - 17.5 gm/dL [facility] Hematocrit 43.8 40.0 - 51.0 % [facility] Mean Cell Volume 86.9 79.0 - 92.[address] [facility] Mean Cell Hemoglobin 30.0 25.6 - 32.[address] [facility] Mean Cell Hemoglobin Concentration 34.5 32.0 - 36.5 gm/dL [facility] Platelet 301 145 - 370 x10(3)/mc L [facility] RDW Standard Deviation 43.5 35.0 - 46.[address] [facility] RDW coefficient of variation 13.7 10.9 - 14.4 % [facility] Mean Platelet Volume 10.6 9.0 - 12.[address] [facility] Blood specimen (specimen) 12/09/2015 12:40 PM EDT 12/09/2015 12:57 PM EDT Narrative Resulting Agency Comment Spec In Lab Angelia Schneider MD HEMATOLOGY ORDERABL ES Performing Organization Address [facility] Co de Phone Number [facility] [place] [address] * High Sensitivity CRP (12/09/2015 12:40 PM EDT) C-Reactive Protein High Sensitivity 39.6 mg/L [facility] Comment: Interpretations: 1) For accurate [...] MD CHEMISTRY ORDERABLE S Performing Organization Address [facility]/ZIP Co de Phone Number [facility] [place] [address] * Sedimentation rate (12/09/2015 12:40 PM EDT) Sedimentation Rate Automated 11 0 - 15 mm/hr [facility] Blood specimen (specimen) 12/09/2015 12:40 PM EDT 12/09/2015 12:57 PM EDT Narrative Resulting Agency Comment Spec In Lab Angelia Schneider MD HEMATOLOGY ORDERABL ES [facility] [place] [address] * Basic Metabolic Panel (non-fasting) (12/09/2015 12:40 PM EDT) Glucose 108 65 - 199 mg/dL [facility] Comment:Diabetes: >=200 mg/d L plus symptoms Blood Urea Nitrogen 12 10 - 20 mg/dL [facility] Creatinine 1.07 0.80 - 1.50 mg/dL [facility] Comment: Please note that the pediatric reference intervals supplied above were not validated at [facility]. Results from pediatric patients should be interpreted in conjunction to the patient's age, height and muscle mass. Sodium 140 135 - 145 mmol/L [facility] Potassium 4.5 3.5 - 5.0 mmol/L [facility] Comment: Please note: ??Patients with WBC >100,000 may have falsely elevated Potassium levels. ??For accurate Potassium quantification in these patients send serum separator tube (gold top) for subsequent determinations. ??Contact the Clinical Chemistry Laboratory if there are any questions. Chloride 103 98 - 107 mmol/L [facility] Carbon Dioxide 22 22 - 31 mmol/L [facility] Anion Gap 15 5 - 15 mmol/L [facility] Calcium 9.3 8.5 - 10.5 mg/dL [facility] Est Glomerular Filtration Rate >60 >=60 GRACE [...] the following links into your internet browser. [email or web address] Blood specimen (specimen) 12/09/2015 12:40 PM EDT 12/09/2015 12:57 PM EDT Narrative Resulting Agency Comment Spec In Lab Angelia Schneider MD CHEMISTRY ORDERABLE S [facility] [place] [address] documented in this encounter Visit Diagnoses Diagnosis [...] Nadine Soria RN) 2314 (Given - Provider: Radah Chicas RN) vancomycin 1.5 g in sodium [...] RN) documented in this encounter Care Teams Ramp Agent Relationship Specialty Start Date End Date Butch Fisher MD [address] [place] [address] PCP - General Family Medicine 12/09/15 06/27/16 documented as of this encounter
--- OUTSIDE RECORDS SUMMARY | 2024-07-06 00:51 | XMS_ITS | Encounter Summary ---
Author Organization [facility] Address [facility] [place] [address] Care Team Providers Care Cutting Machine Tender Helper Name Role Phone Tito Fisher MD Primary Care Provider [phone] Encounter Details Date Type Department Care Team (Latest Contact Info) Description 02/03/2016 Transcribe [place] [id number] Laura Pickering MD [address] [place] [address] Bipolar I disorder, most recent episode (or [...] Stimulating Hormone 0.80 0.27 - 4.20 mcIU/mL [facility] Blood specimen (specimen) 02/06/2016 2:36 PM EDT 02/06/2016 2:41 PM EDT Narrative Resulting Agency Comment Spec In Lab Laura Pickering MD CHEMISTRY ORDERABLES Performing Organization Address [facility]/ZIP Co de Phone Number [facility] [place] [address] * [place] level (02/06/2016 2:36 PM EDT) [place] 0.12 mmol/L [facility] Comment: Therapeutic [...] CHEMISTRY ORDERABLES Performing Organization Address [facility]/ZIP Co de Phone Number [facility] [place] [address] * Creatinine (02/06/2016 2:36 PM EDT) Creatinine 1.34 0.80 - 1.50 mg/dL [facility] Comment: Please note that the pediatric reference intervals supplied above were not validated at [facility]. Results from pediatric patients should be interpreted in conjunction to the patient's age, height and muscle mass. Est Glomerular Filtration Rate 60 >=60 [facility] Comment: This estimated GFR (eGFR) [...] the following links into your internet browser. [email or web address] Blood specimen (specimen) 02/06/2016 2:36 PM EDT 02/06/2016 2:41 PM EDT Narrative Resulting Agency Comment Spec In Lab Laura Pickering MD CHEMISTRY ORDERABLES Performing Organization Address [facility] Co de Phone Number [facility] [place] [address] * Calcium (02/06/2016 2:36 PM EDT) Calcium 10.1 8.5 - 10.5 mg/dL [facility] Blood specimen (specimen) 02/06/2016 2:36 PM EDT 02/06/2016 2:41 PM EDT Narrative Resulting Agency Comment Spec In Lab Laura Pickering MD CHEMISTRY ORDERABLES Performing Organization Address [facility] Co de Phone Number [facility] [place] [address] documented in this encounter Visit Diagnoses Diagnosis Bipolar I disorder, most recent episode (or current) depressed, severe, specified as with psychotic behavior documented in this encounter Care Teams Cutting Machine Tender Helper Relationship Specialty Start Date End Date Tito Fisher MD [address] [place] [address] PCP - General Family Medicine 12/09/15 06/27/16 documented as of this encounter
--- OUTSIDE RECORDS SUMMARY | 2024-07-06 00:51 | XMS_ITS | Encounter Summary ---
Author Organization [facility] Address [address] [place] [address] Care Team Providers Care Fountain Operator Name Role Phone Unknown, Provider Primary Care Provider Unava ilable Encounter Details Date Type Department Care Team (Late st Contact Info) Description 09/04/2019 Results Only [facility] - Main [address] [address] Arian Charles MD Social History Tobacco Use [...] Quantitative Undetected Undetected IU/mL 09/05/2019 22:50 EST [facility] Comment: Result in log IU/mL is Undetected. ADDITIONAL INFORMATION The quantification range of this assay is 15 to 100,000,000 IU/mL (1.18 log to 8.00 log IU/mL). Testing was performed using the elke HCV test ([employer] with the elke 6800 System. Test Performed by: [address] [address] Journeyman Lineman: Jorge Luis Andre M.D. Ph.D.; CLIA# [id number] 09/04/2019 15:5 7 EST 09/04/2019 15:57 EST Narrative [facility] - 09/05/2019 22:50 EST Does PT Have a Latex Allergy? NO us Arian Charles MD CHEMISTRY & BLOOD GAS ORDERAB LES Final Result [facility] documented in this encounter Visit Diagnoses Not on filedocumented in this encounter Care Teams Fountain Operator Relationship Specialty Start Date End Date Unknown, Provider, PCP - General 10/07/14 12/24/19 documented as of this encounter
--- OUTSIDE RECORDS SUMMARY | 2024-07-06 00:51 | XMS_ITS | Encounter Summary ---
Author Organization [facility] Address [address] [place] [address] Care Team Providers Care Culinary Arts Instructor Name Role Phone Unknown, Provider Primary Care Provider Unava ilable Encounter Details Date Type Department Care Team (Late st Contact Info) Description 03/03/2015 Historical Results Only [facility] - [facility] Radiology Results [address] [place], [place] [address] Harvey Rivers MD Social History Tobacco Use [...] on filedocumented in this encounter Care Teams Culinary Arts Instructor Relationship Specialty Start Date End Date Unknown, ProviderMD PCP - General 10/07/14 12/24/19 documented as of this encounter
--- OUTSIDE RECORDS SUMMARY | 2024-07-06 00:51 | XMS_ITS | Encounter Summary ---
Author Organization [facility] Address [address] [place] [address] Care Team Providers Care System Planning Engineer Name Role Phone Laura Ho MD Primary Care Provider [phone] Encounter Details Date Type Department Care Team (Latest Contact Info) Description 08/24/2023 Transcribe Orders [facility] Lab - Main [place] [address] [place] [address] Gia Enriquez APRN [address] [place] [address] [address] [place], [place] [id number] Hyperlipidemia, unspecified hyperlipidemia type (Primary Dx); Essential [...] facility documented in this encounter Care Teams System Planning Engineer Relationship Specialty Start Date End Date Laura Ho MD [address] [place] [address] PCP - General 12/25/19 documented as of this encounter
--- OUTSIDE RECORDS SUMMARY | 2024-07-06 00:51 | XMS_ITS | Encounter Summary ---
Author Organization [facility] Address [address] [place] [address] Care Team Providers Care Sheet Metal Work Furnace Installer Name Role Phone Laura Ho MD Primary Care Provider [phone] Encounter Details Date Type Department Care Team (Latest Contact Info) Description 10/20/2023 Specialty Pharmacy [facility] [address] [place], [place] [phone] Clara Carpenter RPH Set up initial fill [...] - 10/20/2023 0952 EDT Prescription Receipt by [facility] Date Received: 10/19/23 Medication: Brixadi 96mg Provider: Gia Enriquez MD Provider Phone number: [phone] [facility] Clinic: [facility] Med Comments: requested ins info, chart note/med list, allergies PA Status: Pending Prescription copy available in scans: YES Relevant clinical documents in scans (if applicable): requested! 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 To contact the clinic call: [phone] Baseline labs: Not available - outside provider, [...] 3 Tablets by mouth at bedtime. [DISCONTINUED] [id number]-[id number]-3 0.3 mg/24 hr patch [DISCONTINUED] cloNIDine HCL [...] Plan: Medication list source: Epic chart review, Strutta information, VPMS, and Chart notes in scans DDI with current medication list checked Drug-drug interactions identified: lithium, lamotrigine, prazosin, abilify, focalin, olanzaprine - no intervention Comorbidities: reviewed Coinfection/Vaccination Assessment: Not available - outside provider, outside lab Baseline Outcome: Number of admissions at [facility] related to OUD in last 6 months: 0 Clara Carpenter, PharmD (she/her) Print Line Supervisor Pharmacist [facility] Specialty Pharmacy 10/20/2023 documented in this encounter [...] 70 mg tablet Therapy completed 12/22/2019 10/20/2023 [id number]-4 0.3 mg/24 hr patch Therapy completed 11/26/2019 [...] 04/24/2024 added in this encounter Care Teams Sheet Metal Work Furnace Installer Relationship Specialty Start Date End Date Laura Ho MD [address] [place] [address] PCP - General 12/25/19 documented as of this encounter
--- OUTSIDE RECORDS SUMMARY | 2024-07-06 00:51 | XMS_ITS | Encounter Summary ---
Author Organization [facility] Address [address] [place] [address] Care Team Providers Care Migration Specialist Name Role Phone Unknown, Provider Primary Care Provider Unava ilable Encounter Details Date Type Department Care Team (Late st Contact Info) Description 03/04/2015 Historical Results Only [facility] - [facility] Radiology Results [address] [place] [address] Harvey Rivers MD Social History [...] CC: ? Transcribed Date/Time: 03/04/2015 (1056) ? Mobile Application Architect: MATTY ? Printed Date/Time: 12/19/2018 (1139) ? [...] Mateo Allred MD CC: Transcribed Date/Time: 03/04/2015 (2454) Mobile Application Architect: MATTY Printed Date/Time: 12/19/2018 (8369) PAGE 1 Signed Report Harvey Rivers MD [facility] ORDERABLES Final Result documented in this encounter Visit Diagnoses Not on filedocumented in this encounter Care Teams Migration Specialist Relationship Specialty Start Date End Date Unknown, Provider, PCP - General 10/07/14 12/24/19 documented as of this encounter
--- OUTSIDE RECORDS SUMMARY | 2024-07-06 00:51 | XMS_ITS | Encounter Summary ---
Author Organization [facility] Address [address] [place] [address] Care Team Providers Care Web Portal Developer Name Role Phone Laura Ho MD Primary Care Provider [phone] Encounter Details Date Type Department Care Team [...] on filedocumented in this encounter Care Teams Web Portal Developer Relationship Specialty Start Date End Date Laura Ho MD [address] [place] [address] PCP - General 12/25/19 documented as of this encounter
--- OUTSIDE RECORDS SUMMARY | 2024-07-06 00:51 | XMS_ITS | Referral Summary ---
Author Organization Health system Address [address] [place] [address] Care Team Providers Care Double Backer Name Role Phone Laura Ho MD Primary Care Provider [phone] Encounters Date Type Department Care Team Description 06/22/2024 Lab Requisition [facility] Pathology & Laboratory [address] [address] Outr Resulting Lab, Provider 06/22/2024 Lab Requisition [facility] Pathology & Laboratory [address] [address] Outr Resulting Lab, Provider 04/17/[address] [facility] [address] [place] [address] Clara Carpenter RPH from Last 3 Months Allergies Active Allergy [...] * XYLAZINE CONFIRMATION, U (06/21/2024 15:15 EST) Pathologist [facility] Xylazine Confirmation Negative <50 ng/mL 06/26/2024 9:47 EST [facility] Urine URINE / Unknown 06/21/2024 1 5:15 EST 06/22/2024 17:23 EST Narrative [facility] - 06/26/2024 9:47 EST Testing performed by: [facility] [address] [place] [address], [facility] [address] [address] Set Builder: Tavares Cramer MD; CLIA # [id number] us Provider Outr Resulting Lab GEN LAB UNIT COLLECT ORDERABLES Final Result [facility] [address] [place] [address] * FENTANYL SCREEN WITH REFLEX TO CONFIRMATION, U (06/21/2024 15:15 EST) [facility] Fentanyl Screen with Reflex to Confirmation, U Negative <1 ng/mL 06/25/2024 10:13 EST [facility] Urine URINE / Unknown 06/21/2024 1 5:15 EST 06/22/2024 17:23 EST Narrative [facility] - 06/25/2024 10:13 EST Testing performed by: [facility] [address] [place] [address], [facility] [address] [address] Set Builder: Tavares Cramer MD; CLIA # [id number] us Provider Outr Resulting Lab URINALYSIS ORDERABLE S Final Result Performing Organization Address City/[facility]/ZIP Co de Phone Number [facility] [address] [place] [address] * HCV RNA DETECT QUANT (09/04/2019 15:57 EST) [facility] HCV RNA Quantitative Undetected Undetected IU/mL 09/05/2019 22:50 EST [facility] Comment: Result in log IU/mL is Undetected. ADDITIONAL INFORMATION The quantification range of this assay is 15 to 100,000,000 IU/mL (1.18 log to 8.00 log IU/mL). Testing was performed using the elke HCV test ([employer] with the elke 6800 System. Test Performed by: [facility] [address] [place] [address] Set Builder: Jorge Luis Andre M.D. Ph.D.; CLIA# [id number] 09/04/2019 15:5 7 EST 09/04/2019 15:57 EST Narrative [facility] - 09/05/2019 22:50 EST Does PT Have a Latex Allergy? NO Arian Charles MD CHEMISTRY & BLOOD GAS ORDERAB LES Final Result [facility] from Last 3 Months or Most Recently Relevant to Health Maintenance Insurance [place] Care Teams Double Backer Relationship Specialty Start Date End Date Laura Ho MD [address] [place] [address] PCP - General 12/25/19
--- OUTSIDE RECORDS SUMMARY | 2024-07-06 00:51 | XMS_ITS | Encounter Summary ---
Author Organization [facility] [place] [address] Care Team Providers Care Supervising Fire Marshal Name Role Phone Tito Fisher MD Primary Care Provider [phone] Encounter Details Date Type Department Care Team (Latest Contact Info) Description 02/13/2016 2:45 PM EDT Laboratory Appointment Lab [address] [place] [phone] Bipolar I disorder, most recent episode (or [...] Stimulating Hormone 2.67 0.27 - 4.20 mcIU/mL [facility] Blood specimen (specimen) 02/13/2016 3:01 PM EDT 02/13/2016 3:09 PM EDT Narrative Resulting Agency Comment Spec In Lab Laura Pickering MD CHEMISTRY ORDERABLES Performing Organization Address [facility] Co de Phone Number [facility] [place] [address] * Taopi level (02/13/2016 3:01 PM EDT) [place] 0.23 mmol/L [facility] Comment: Therapeutic level for bipolar [...] Pickering MD CHEMISTRY ORDERABLES Performing Organization Address [facility] Co de Phone Number [facility] [place] [address] * Creatinine (02/13/2016 3:01 PM EDT) Creatinine 1.18 0.80 - 1.50 mg/dL [facility] Comment: Please note that the pediatric reference intervals supplied above were not validated at [facility]. Results from pediatric patients should be interpreted in conjunction to the patient's age, height and muscle mass. Est Glomerular Filtration Rate >60 >=60 [facility] Comment: This estimated GFR [...] the following links into your internet browser. [email or web address] Blood specimen (specimen) 02/13/2016 3:01 PM EDT 02/13/2016 3:09 PM EDT Narrative Resulting Agency Comment Spec In Lab Laura Pickering MD CHEMISTRY ORDERABLES Performing Organization Address City/[facility]/ZIP Co de Phone Number [facility] [place] [address] * Calcium (02/13/2016 3:01 PM EDT) Calcium 10.0 8.5 - 10.5 mg/dL [facility] Blood specimen (specimen) 02/13/2016 3:01 PM EDT 02/13/2016 3:09 PM EDT Narrative Resulting Agency Comment Spec In Lab Laura Pickering MD CHEMISTRY ORDERABLES Performing Organization Address City/[facility]/ZIP Co de Phone Number [facility] [place] [address] documented in this encounter Visit Diagnoses Diagnosis Bipolar I disorder, most recent episode (or current) depressed, severe, specified as with psychotic behavior documented in this encounter Care Teams Supervising Fire Marshal Relationship Specialty Start Date End Date Tito Fisher MD [address] [place] [address] PCP - General Family Medicine 12/09/15 06/27/16 documented as of this encounter
--- OUTSIDE RECORDS SUMMARY | 2024-07-06 00:51 | XMS_ITS | Encounter Summary ---
Author Organization [facility] Address [facility] [place] [address] Care Team Providers Care Retail Sales Associate Bilingual Name Role Phone Tito Fisher MD Primary Care Provider [phone] Encounter Details Date Type Department Care Team (Late st Contact Info) Description 01/14/2016 Telephone [place] [address] Crystal Rosales APRN [facility] [address] [place] [address] Social History Tobacco Use Types Packs/Day Years [...] on filedocumented in this encounter Care Teams Retail Sales Associate Bilingual Relationship Specialty Start Date End Date Tito Fisher MD [address] [place] [address] PCP - General Family Medicine 12/09/15 06/27/16 documented as of this encounter
--- OUTSIDE RECORDS SUMMARY | 2024-07-06 00:51 | XMS_ITS | Encounter Summary ---
Author Organization [facility] Address [address] [place] [address] Care Team Providers Care Circle Shear Operator Name Role Phone Unknown, Provider MD Primary Care Provider Unava ilable Encounter Details Date Type Department Care Team (Latest Contact Info) Description 03/03/2015 15:48 EDT - 03/03/2015 23:59 EDT Hospital Encounter [facility] [address] [place] [address] Unknown, ProviderMD Discharge Disposition: Home or Self [...] Code Departure Means Destination Home or Self Half-Way documented in this encounter Plan of Treatment Not on file documented as of this encounter Visit Diagnoses Not on filedocumented in this encounter Care Teams Circle Shear Operator Relationship Specialty Start Date End Date Unknown, ProviderMD PCP - General 10/07/14 12/24/19 documented as of this encounter
--- OUTSIDE RECORDS SUMMARY | 2024-07-06 00:51 | XMS_ITS | Encounter Summary ---
Author Organization [facility] Address [address] [place] [address] Care Team Providers Care Stockroom Associate Name Role Phone Unknown, Provider Primary Care Provider Unava ilable Encounter Details Date Type Department Care Team (Late st Contact Info) Description 01/05/2017 Historical Results Only [facility] [place] [address] Arian Charles MD Social History Tobacco Use [...] Date/Time Associated Diagnosis Comments HCV FIBROSURE - [facility] Routine 01/05/2017 8:48 EDT documented in this encounter Results * (ABNORMAL) HCV FIBROSURE - CV (01/05/2017 8:48 EDT) [id number] IN 350(A) 106 - 279 mg/dL 01/08/2017 16:45 EDT [facility] APOLIPOPROTEIN A1 101 94 - 176 mg/dL 01/08/2017 16:45 EDT [facility] FIBROSIS INTERPRETATION SEE BELOW () 01/08/2017 16:45 EDT [facility] Comment: advanced fibrosis Fibro Test Score ?? Metavir Score 0.00-0.21 ?F0 ? no fibrosis 0.22-0.27 ?F0-F1 0.28-0.31 ?F1 ? minimal fibrosis 0.32-0.48 ?F1-F2 0.49-0.58 ?F2 ? moderate fibrosis 0.59-0.72 ?F3 ? advanced fibrosis 0.73-0.74 ?F3-F4 0.75-1.00 ?F4 ? severe fibrosis ALT 96(A) 9 - 46 U/L 01/08/2017 16:45 [facility] TOTAL BILIRUBIN - [facility] 0.5 0.2 - 1.2 mg/dL 01/08/2017 16:45 [facility] GGT 86 3 - 90 U/L 01/08/2017 16:45 [facility] FOOTNOTE - [facility] SEE BELOW () 7 16:45 [facility] Comment: The reliability of results is dependent on compliance with the preanalytical and analytical conditions recommended by [employer]. The tests have to be deferred for: [...] The performance characteristics have been determined by [employer] [facility]. It has not been cleared or approved by the U.S. Food and Drug Administration. Performance characteristics refer to the analytical performance of the test. [employer], the associated logo, [employer] and all associated [employer] iverson are the registered trademarks of [employer] All third democrat iverson - (R) and (TM) - are the property of their respective owners. (C) 3952-8283 [employer] Inc[employer]. All rights reserved. Test Performed by: [employer] [id number] [place] [address] REFERENCE ID - [facility] [id number] () 01/08 16:45 EDT [facility] FIBROSIS SCORE 0.73 () 01/08/2017 16:45 EDT [facility] FIBROSIS STAGE - [facility] F3-F4 () 01/08/2017 16:45 [facility] HAPTOGLOBIN 60 43 - 212 mg/dL 01/08/2017 16:45 [facility] NECROINFLAMMAT ACT GRADE - [facility] A3 () 01/08/2017 16:45 EDT [facility] NECROINFLAMMAT ACT SCORE - [facility] 0.70 () 01/08/2017 16:45 T [facility] NECROINFLAMMAT INTERPRETATION - [facility] SEE BELOW () 01/08/2017 16:45 EDT [facility] Comment: severe activity ActiTest Score ? Metavir Score 0.00-0.17 ?A0 ? no activity 0.18-0.29 ?A0-A1 0.30-0.36 ?A1 ? minimal activity 0.37-0.52 ?A1-A2 0.53-0.60 ?A2 ? significant activity 0.61-0.62 ?A2-A3 0.63-1.00 ?A3 ? severe activity 01/05/2017 8:48 EDT 01/05/2017 8:48 EDT [facility] - 01/08/2017 16:45 EDT Does PT Have a Latex Allergy? NO us Arian Charles MD CHEMISTRY & BLOOD GAS ORDERAB LES Final Result [facility] documented in this encounter Visit Diagnoses Not on filedocumented in this encounter Care Teams Stockroom Associate Relationship Specialty Start Date End Date Unknown, Provider, PCP - General 10/07/14 12/24/19 documented as of this encounter
--- OUTSIDE RECORDS SUMMARY | 2024-07-06 00:51 | XMS_ITS | Encounter Summary ---
Author Organization [facility] Address [address] [place] [address] Care Team Providers Care Die Storage Clerk Name Role Phone Laura Ho MD Primary Care Provider [phone] Reason for Visit * Reason Comments New Patient Visit EMG/NCS 2UE's Numbness Both Hands Encounter Details Date Type Department Care Team (Late st Contact Info) Description 12/25/2019 14:00 EDT Procedure visit [facility] [address] [place] [address] Ignacio Ragsdale MD [address] [place] [phone] Carpal tunnel syndrome, bilateral (Primary Dx); [...] Ignacio Ragsdale MD - 12/25/2019 1400 EDT [facility] PATIENT NAME: Harvey Espinosa [...] 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 He has had [...] ADDITIONAL DAILY NEEDED FOR INCREASED ANXIETY ??? [id number]-0 0.3 mg/24 hr patch ??? cloNIDine HCL [...] Take 30 mg by mouth daily. 4 [id number]-6 0.3 mg/24 hr patch 11/26/2019 4 cloNIDine HCL (CATAPRES) 0.1 mg tablet Take 1 Tablet by mouth. 4 acyclovir (ZOVIRAX) 200 mg capsule TAKE 1 CAPSULE BY MOUTH DAILY INCREASINT DOSE NEEDED FOR INCREASED SYMPTOMS UP TO 2 CAPSULES DAILY 11/16/2019 4 added in this encounter Care Teams Die Storage Clerk Relationship Specialty Start Date End Date Laura Ho MD [address] [place] [address] PCP - General 12/25/19 documented as of this encounter
--- OUTSIDE RECORDS SUMMARY | 2024-07-06 00:51 | XMS_ITS | Encounter Summary ---
Author Organization [facility] Address [address] [place] [address] Care Team Providers Care File Clerk Name Role Phone Laura Ho MD Primary Care Provider [phone] Encounter Details Date Type Department Care Team (Latest Contact Info) Description 12/14/2023 Specialty Pharmacy [facility] [address] [place], [place] [phone] Clara Carpenter RPH Refill Coordination Outreach for [...] on filedocumented in this encounter Care Teams File Clerk Relationship Specialty Start Date End Date Laura Ho MD [address] [place] [address] PCP - General 12/25/19 documented as of this encounter
--- OUTSIDE RECORDS SUMMARY | 2024-07-06 00:51 | XMS_ITS | Encounter Summary ---
Author Organization [facility] Address [address] [place] [address] Care Team Providers Care Knocker Off Name Role Phone Laura Ho MD Primary Care Provider [phone] Encounter Details Date Type Department Care Team (Latest Contact Info) Description 11/15/2023 Specialty Pharmacy [facility] [address] [place], [place] [phone] Clara Carpenter RPH Refill Coordination Outreach for [...] on filedocumented in this encounter Care Teams Knocker Off Relationship Specialty Start Date End Date Laura Ho MD [address] [place] [address] PCP - General 12/25/19 documented as of this encounter
--- OUTSIDE RECORDS SUMMARY | 2024-07-06 00:51 | XMS_ITS | Encounter Summary ---
Author Organization [facility] Address [address] [place] [address] Care Team Providers Care Signals Intelligence Analyst Name Role Phone Laura Ho MD Primary Care Provider [phone] Encounter Details Date Type Department Care Team (Late st Contact Info) Description 06/22/2024 Lab Requisition [facility] Pathology & Laboratory Medicine - [facility] [address] [place] [address] Outr Resulting Lab, Provider Social History Tobacco [...] Procedure Name Priority Date/Time Associated Diagnosis Comments FENTANYL SCREEN WITH REFLEX TO CONFIRMATION, U Routine 06/21/2024 15:15 EST documented in this encounter Results * FENTANYL SCREEN WITH REFLEX TO CONFIRMATION, U (06/21/2024 15:15 EST) Fentanyl Screen with Reflex to Confirmation, U Negative <1 ng/mL 06/25/2024 10:13 EST [facility] Urine URINE / Unknown 06/21/2024 1 5:15 EST 06/22/2024 17:23 EST Narrative [facility] - 06/25/2024 10:13 EST Testing performed by: [facility] [address] [place] [address], [facility] [address] [address] Collector: Tavares Cramer MD; CLIA # [id number] us Provider Outr Resulting Lab URINALYSIS ORDERABLE S Final Result Performing Organization Address City/State/[facility] Co de Phone Number [facility] [address] [place] [address], [facility] [address] [phone] documented in this encounter Visit Diagnoses Not on filedocumented in this encounter Care Teams Signals Intelligence Analyst Relationship Specialty Start Date End Date Laura Ho MD [address] [place] [address] PCP - General 12/25/19 documented as of this encounter
--- OUTSIDE RECORDS SUMMARY | 2024-07-06 00:51 | XMS_ITS | Encounter Summary ---
Author Organization [facility] Address [address] [place] [address] Care Team Providers Care Pattern Changer Name Role Phone Unknown, Provider Primary Care Provider Unava ilable Encounter Details Date Type Department Care Team (Late st Contact Info) Description 02/21/2019 Historical Results Only [facility] [place] [address] Arian Charles MD Social History Tobacco Use [...] 13:57 EDT) HEPATIT[place] C [place] [facility] [place] Undetected 02/26/2019 20:02 EDT [facility] Comment: ADDITIONAL INFORMATION This test was performed using the [employer] RealTime HCV Genotype II assay ([employer] [place], [place]). Test Performed by: [facility] - [address] [address] 02/21/2019 13:5 7 EDT 02/21/2019 14:05 EDT Narrative [facility] - 02/26/2019 20:02 EDT HEP C GT REFLEXED 02-23-19 us Arian Charles MD CHEMISTRY & BLOOD GAS ORDERAB LES Final Result Performing Organization Address City/State/[facility] Co de Phone Number [facility] documented in this encounter Visit Diagnoses Not on filedocumented in this encounter Care Teams Pattern Changer Relationship Specialty Start Date End Date Unknown, Provider, PCP - General 10/07/14 12/24/19 documented as of this encounter
== END 2024-07-06 01:07 ==
LOC: DI 00:47
PROVIDERS: PCP Family Medicine; Visit Provider Nurse Practitioner Family
DX: K74.69 Other cirrhosis of liver (principal)
CPT/HCPCS: 76700